=== PATIENT | male | born 1945 | race Caucasian/White ===

== ENCOUNTER → 2020-07-30 16:35 | Outpatient (CLI) | payer MEDICARE, SELFPAY ==
--- NOTE | ~2020-07-30 | MR_ITS ---
EXAMINATION: MR foot RT wo con DATE: 07/30/2020 17:47 INDICATION: Right foot injury and pain. TECHNIQUE: Magnetic resonance imaging (MRI) of the right foot was performed without intravenous contr ast. Sequences included sagittal T1-weighted FSE and STIR FSE, long-axis PD-weighted FS FSE and PD-we ighted FSE, and short-axis PD-weighted FS FSE and T1-weighted FSE. COMPARISON: None FINDINGS: Imaging is centered on the forefoot. The hindfoot and the majority of the midfoot are not i ncluded. There is an avulsion fracture of medial base of second metatarsal at the attachment of the L isfranc ligament. The distal fracture fragment demonstrates 2 mm lateral displacement. There is mild lateral subluxation of third metatarsal. There is a nondisplaced fracture of lateral distal aspect of medial cuneiform with low signal fracture line and bone marrow edema. There is polyarticular osteoar thritis of the Lisfranc joint, severe at second tarsometatarsal joint and mild at first tarsometatars al joint. There is mild osteoarthritis of first metatarsophalangeal joint. There is edema in the head s of the third-fifth metatarsals without fracture line. There is severe fatty atrophy of the musculat ure. There is increased PD-weighted signal intensity of the musculature, consistent with subacute on chronic degeneration. Advanced edema is noted. IMPRESSION: 1. Avulsion fracture of medial base of second metatarsal with Lisfranc joint subluxation. Note that t he lateral aspect of the Lisfranc joint was not included in the scan. 2. Nondisplaced fracture of distal aspect of medial cuneiform. 3. Bone marrow edema in the heads of the third-fifth metatarsals without visible fracture line, likel y stress reaction. 4. Polyarticular osteoarthritis. Reviewed, dictated and finalized at location A. [employer] IMPRESSION: 1. Avulsion fracture of medial base of second metatarsal with Lisfranc joint ferreira bluxation. Note that the lateral aspect of the Lisfranc joint was not included in the scan. 2. Nondisplaced fracture of distal aspect of medial cuneiform. 3. Bone marrow edema in the heads of the third-fifth metatarsals without visibl e fracture line, likely stress reaction. 4. Polyarticular osteoarthritis.
== END ==
PROVIDERS: Visit Provider Podiatrist Foot & Ankle Surgery
DX: S92.324A Nondisplaced fracture of second metatarsal bone, right foot, initial encounter for closed fracture (principal); X58.XXXA Exposure to other specified factors, initial encounter; M19.071 Primary osteoarthritis, right ankle and foot
CPT/HCPCS: 73718

== ENCOUNTER 2020-11-11 14:09 | Outpatient (CLI) | payer MEDICARE, SELFPAY ==
--- NOTE | ~2020-11-11 | XR_ITS ---
EXAMINATION: XR chest 2V 11/11/2020 14:28 INDICATION: Melanoma PROCEDURE: 2 view chest COMPARISON: No prior studies for comparison. FINDINGS: The lungs are clear. The cardiomediastinal silhouette is within normal limits. There are no pleural effusions. There is no pneumothorax suspected. IMPRESSION: 1: NO ACUTE CARDIOPULMONARY DISEASE. Reviewed, dictated and finalized at location B.
== END 2020-11-11 14:10 | disposition home or self-care (01) ==
LOC: ANHIMG 14:13
PROVIDERS: PCP Physician Assistant; Visit Provider Surgery
DX: C43.59 Malignant melanoma of other part of trunk (principal)
CPT/HCPCS: 71046

== ENCOUNTER 2021-05-23 01:13 | Day surgery (SDC) | payer MEDICARE, SELFPAY ==
[2021-05-20 12:39] VITALS: BMI 46.3
--- NOTE | 2021-05-23 08:30 | ECG_ITS ---
Measurements Intervals [place] Rate: 97 P: OK: 0 QRS: -49 QRSD: 104 T: 54 QT: 382 QTc: 486 Interpretive Statements ATRIAL FIBRILLATION LEFT ANTERIOR FASCICULAR BLOCK BORDERLINE ST-T WAVE ABNORMALITY- INF/HIGH LAT LEADS ABNORMAL ECG Electronically Signed On 05-23-2021 14:29:41 CDT by Russell Mcclain D.O.
--- NOTE | 2021-05-23 08:35 | SUR.PREOP ---
ARRIVES VIA WC TO [facility] FOR SCHEDULED KARLY/CV W/ DR. ELENA. A&OX4. DENIES CP, BUT REPORTS ARREAGA. ORIENTED TO ROOM, PLAN OF CARE, ORDERS, PROCEDURE. QUESTIONS ANSWERED. VOICED UNDERSTANDING OF ALL. PRE EKG COMPLETED; SHOWS AFIB. IV STARTED, LABS SENT, VS OBTAINED, SKIN PREPPED. WILL CONTINUE TO MONITOR.
[2021-05-23 09:00] VITALS: BP 147/102; PULSE 94; RESP 18; TEMP 36; O2SAT 96; BMI 49.4
[2021-05-23 09:09] LABS: Anion Gap 9 mmol/L (8-16); Blood Urea Nitrogen 25 mg/dL (9-20); Calcium 8.9 mg/dL (8.4-10.2); Carbon Dioxide 26 mmol/L (22-30); Chloride 106 mmol/L (98-107); Estimated CRCL calculation 66 ml/min; Estimated Glomerular Filt Rate 50; Glucose 175 mg/dL (65-110); Magnesium 1.6 mg/dL (1.6-2.3); Potassium 4.5 mmol/L (3.4-5.0); Sodium 141 mmol/L (137-145)
[2021-05-23] MEDS: SODIUM CHLORIDE 0.9% IV 500 ML 30 ML IV CONT (09:15)
--- NOTE | 2021-05-23 10:10 | SUR.PREOP ---
DR. ELENA TO BEDSIDE PRE PROCEDURE. NOTIFIED DR. ELENA OF PT'S HX OF GOITER AND ANTONIO ON CPAP. PT'S BMI IS 49.4. KARLY/CV WAS SCHEDULED FOR MODERATE SEDATION TODAY. AFTER DISCUSSION W/ PT., DR. ELENA HAS ELECTED TO CANCEL TODAY'S KARLY/CV W/ MODERATE SEDATION AND RESCHEDULE PROCEDURE W/ ANESTHESIA ASSISSTANCE. PT. IS AGREEABLE. NEW DATE FOR KARLY/CV W/ ANESTHESIA IS TUESDAY, MAY 25, 2021 AT 1130.
--- NOTE | 2021-05-23 11:20 | SUR.PREOP ---
PT. DRESSED AND READY TO GO. IV SITE HAS BEEN DISCONTINUED AT 1050. PT. AWARE OF NEW PROCEDURE DATE AND TIME, ARRIVAL TIME OF 10 AM, NPO AFTER MIDNIGHT NIGHT BEFORE, CONTINUE TAKING ELIQUIS FAITHFULLY, HOLD OTHER MEDS AM OF PROCEDURE. DISCHARGED HOME, OUT VIA WC TO SISTER'S WAITING CAR. VOICES NO C/O. NO PROCEDURE WAS PERFORMED TODAY BEYOND PREP.
== END 2021-05-23 11:20 | disposition home or self-care (01) ==
PROVIDERS: PCP Family Medicine; Visit Provider Internal Medicine Cardiovascular Disease
PROC: (CPT 93312; principal; 2021-05-23 10:00)
PROC: 5A2204Z Restoration of Cardiac Rhythm, Single (ICD-10-PCS; 2021-05-23 10:00)
DX: I48.91 Unspecified atrial fibrillation (principal); G47.33 Obstructive sleep apnea (adult) (pediatric); E04.9 Nontoxic goiter, unspecified; Z53.8 Procedure and treatment not carried out for other reasons
CPT/HCPCS: 36415; 80048; 83735; 99214; G0463; J7030; J7040

== ENCOUNTER 2021-05-25 01:04 | Day surgery (SDC) | payer MEDICARE, SELFPAY ==
--- NOTE | 2021-05-25 10:24 | ECG_ITS ---
Measurements Intervals [place] Rate: 55 P: 2 DE: 166 QRS: -43 QRSD: 113 T: 31 QT: 454 QTc: 436 Interpretive Statements SINUS BRADYCARDIA LEFT AXIS DEVIATION DELAYED PRECORDIAL R/S TRANSITION BORDERLINE T WAVE ABNORMALITY- DIFFUSE LEADS BASELINE ARTIFACT- II, III BORDERLINE ECG Electronically Signed On 05-25-2021 12:25:57 CDT by Russell Mcclain D.O.
--- NOTE | 2021-05-25 10:24 | ECG_ITS ---
Measurements Intervals [place] Rate: 103 P: HI: 0 QRS: -46 QRSD: 103 T: 71 QT: 383 QTc: 504 Interpretive Statements ATRIAL FIBRILLATION WITH RAPID VENTRICULAR RESPONSE LEFT ANTERIOR FASCICULAR BLOCK BORDERLINE ST-T WAVE ABNORMALITY- HIGH LATERAL LEADS ABNORMAL ECG Electronically Signed On 05-25-2021 10:29:48 CDT by Russell Mcclain D.O.
[2021-05-25 10:46] VITALS: BP 135/80; PULSE 95; RESP 17; TEMP 36; O2SAT 94
[2021-05-25 10:51] VITALS: BMI 49.4
--- NOTE | 2021-05-25 11:28 | WPDHPUPDATE1 ---
History and Physical Update Update Date/Time: 05/25/21 11:28 History and Physical has been reviewed, including an updated exam of the patient. There are NO changes in the patient's condition. Risks, benefits, and alternatives have been discussed and questions answered. Patient agrees to proceed with procedure.
--- NOTE | 2021-05-25 11:32 | WPDANESEPPF ---
Anes - Initial Pre Proc Eval Procedure: Operation Date: 05/25/21 12:00 Proposed Procedures p Trans Esophageal Echo - Sarabjit Back MD s Electrical Cardioversion - Sarabjit Back MD Date/Time: 05/25/21 11:32 Surgeon: Sarabjit Back MD Pre Op Diagnosis: A-fib Patient Data Age: 75 Gender: M Height: 1.85 m Weight: 170 kg Last Vital Signs Temp 36.0 C L 05/25/21 10:46 Pulse 95 05/25/21 10:46 Resp 17 05/25/21 10:46 BP 135/80 05/25/21 10:46 Pulse Ox 94 05/25/21 10:46 Allergies Allergy/AdvReac Type Severity Reaction Status Date / Time diclofenac Allergy Unknown Unknown Verified 05/23/21 09:25 naproxen Allergy Unknown Unknown Verified 05/23/21 09:25 Penicillins Allergy Unknown Unknown Verified 05/23/21 09:25 Home Medications Medication Instructions Recorded Confirmed Type amlodipine 10 mg tablet 10 mg PO DAILY 12/19/19 05/23/21 History chlorthalidone 25 mg tablet 25 mg PO DAILY 12/19/19 05/23/21 History finasteride 5 mg tablet 5 mg PO DAILY 12/19/19 05/23/21 History glimepiride 4 mg tablet 4 mg PO DAILY #90 tablet 07/30/20 05/23/21 Rx sitagliptin 100 mg tablet 100 mg PO DAILY #90 tablet 07/30/20 05/23/21 Rx telmisartan 80 mg tablet 80 mg PO DAILY #90 tablet 07/30/20 05/23/21 Rx metformin 500 mg tablet,extended 1,000 mg PO BID #360 tablet 10/19/20 05/23/21 Rx release 24 hr furosemide 20 mg tablet 20 mg PO QAM 11/15/20 05/23/21 History hydralazine 100 mg tablet 100 mg PO TID tablet 11/15/20 05/23/21 History apixaban [Eliquis] 5 mg PO BID 05/20/21 05/23/21 History metoprolol tartrate 150 mg PO BID 05/20/21 05/23/21 History pravastatin 20 mg PO DAILY 05/20/21 05/23/21 History Patient hx anesthesia problems: none Family hx anesthesia problems: none Results Review: All pre-operative results and documents have been reviewed as part of the pre-operative evaluation. [facility] Past Medical History Medical History (Updated 05/25/21 @ 11:33 by Gigi Bazzi MD) Cataracts, bilateral Chronic diastolic CHF (congestive heart failure) Chronic joint pain CKD (chronic kidney disease) stage 3, GFR 30-59 ml/min Coronary artery disease Dyspnea on exertion Localized osteoarthritis of knees, bilateral Morbid obesity Morbid obesity with BMI of 45.0-49.9, adult Multinodular goiter Non-ischemic cardiomyopathy ANTONIO on CPAP Primary hypertension Type 2 diabetes mellitus Type 2 diabetes mellitus with diabetic neuropathy Surgical History Surgical History History of skin surgery (~03/2019) 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ectomy (~02/2019) Hx of cataract extraction (~08/2020) Family History Family History Father Diabetes mellitus Mother Diabetes mellitus Sibling Diabetes mellitus Social History Social History Smoking status: Former smoker Second hand tobacco smoke exposure: No Smoking end date: 08/13/70 Alcohol intake: current Drinks per week: 6 Substance use: never Substance use type: does not use Gender identity (if verbalized by the patient): Male Spiritual care concerns: No Agree to blood products: Yes Anes - Eval Final PreProcedure Day of Procedure 05/25/21 11:32 Patient weight: morbidly obese Heart: regular rate and rhythm Lungs: clear to auscultation and normal air movement Airway: Mallampati scale class II Neurological: alert and oriented Last oral intake: >/= 8 hours ASA classification: IV Emergent: no Anesthetic plan: proceed Anesthesia type and monitoring: general GIVS Results Review: All pre-operative results and documents have been reviewed as part of the pre-operative evaluation. Informed Consent: The patient's anesthetic plan and its attendant risks and benefits were discussed with the patient/family/POA. Questions were solicited and answers provided to the s
[2021-05-25 12:40] VITALS: BP 112/75; PULSE 49; RESP 16; O2SAT 96
[2021-05-25 12:45] VITALS: BP 111/71; PULSE 54; RESP 17; O2SAT 94
[2021-05-25 13:00] VITALS: BP 115/77; PULSE 54; RESP 18; O2SAT 94
--- NOTE | 2021-05-25 13:29 | WPDTECDV ---
KARLY with Cardioversion Date of procedure: 05/25/21 Procedure Type: Transesophageal echocardiogram guided elective electrical cardioversion Diagnosis: Atrial fibrillation Indications: Atrial fibrillation Description of Procedure: Brief history present illness: Patient is a pleasant 75-year-old male with past medical history significant for remote nonischemic cardiomyopathy, nonobstructive CAD, chronic diastolic heart failure, morbid obesity, hypertension, hypogonadism, obstructive sleep apnea on CPAP, diabetes mellitus who was seen in the office for worsening fatigue and shortness of breath found to be in new atrial fibrillation for which he was started on systemic anticoagulation on 04/26/2021 referred for transesophageal echocardiogram-guided elective electrical cardioversion in attempt to restore sinus rhythm. Procedure in detail: After verbal and written informed consent was obtained the patient risks, benefits, and alternatives explained in detail the patient agreed to proceed with the plan of care as outlined above. Patient was evaluated at bedside in the gastroenterology procedure room. On examination, neck was obese/thick, supple with normal range of motion, no restrictions to opening of the oral cavity, jaw angle and posterior hypopharynx was clear. Lungs were clear to auscultation. Patient was placed in appropriate 30 to 45 degree angle in a supine, slight left lateral decubitus position. Patient was monitored throughout the study with telemetry, oxygen saturation, end-tidal CO2 monitoring, blood pressure, heart rate, and respirations. Anterior and posterior defibrillator pads placed in the appropriate positions. The posterior hypopharynx was then locally anesthetized using Hurricaine spray. Through the oral bite block, the transesophageal echocardiogram probe was advanced into the posterior hypopharynx and into the esophagus easily and without complication. Multiple, multiplanar echocardiographic images were obtained in multiple standard re-projections. Pulsed wave, continuous-wave, and color-flow Doppler were utilized in conjunction with this study. At the conclusion of the study, the transesophageal echocardiogram probe was removed easily and without complication. Patient tolerated the procedure well without difficulty. Patient was in atrial fibrillation throughout the study. Sedation: Moderate Sedation/Anesthesia administration: Patient denied previous intolerance or complications with anesthesia/sedation. Please see Anesthesiology documentation for sedation details and protocols in association with this procedure. Pato noted above, after adequate local anesthesia of the posterior hypopharynx was achieved, a total of mg intravenous Versed and a total of mcg intravenous Fentanyl in multiple divided doses was utilized for moderate sedation. There were no other issues or complications and patient tolerated the procedure well and sedation protocol well and I was present for the entirety. Findings: FINDINGS: LEFT VENTRICLE: Normal size. Mild LV systolic function with visually estimated ejection fraction of 50% moderate concentric left ventricular hypertrophy. No clear regional wall motion abnormalities identified. RIGHT VENTRICLE: Size and systolic function within normal limits. LEFT ATRIUM: Moderate enlargement RIGHT ATRIUM: Moderate enlargement INTERATRIAL SEPTUM: Interatrial septum is anatomically normal without evidence of shunt with color-flow Doppler nor with injection of agitated saline. MITRAL VALVE: Mitral valve is anatomically normal with preserved leaflet excursion without prolapse but with at least moderate regurgitation with several regurgitant jets identified. AORTIC VALVE: The aortic valve was an anatomically normal 3 leaflet structure with normal leaflet excursion, mild sclerosis, and no regurgitation identified. TRICUSPID VALVE: The tricuspid valve is anatomically normal with normal leaflet excursion
== END 2021-05-25 14:08 | disposition home or self-care (01) ==
PROVIDERS: PCP Family Medicine; Visit Provider Internal Medicine Cardiovascular Disease
PROC: (CPT 93312; principal; 2021-05-25 12:00)
PROC: 5A2204Z Restoration of Cardiac Rhythm, Single (ICD-10-PCS; 2021-05-25 12:00)
DX: I48.91 Unspecified atrial fibrillation (principal); I34.0 Nonrheumatic mitral (valve) insufficiency; I13.0 Hypertensive heart and chronic kidney disease with heart failure and stage 1 through stage 4 chronic kidney disease, or unspecified chronic kidney disease; N18.30 Chronic kidney disease, stage 3 unspecified; E11.22 Type 2 diabetes mellitus with diabetic chronic kidney disease; E11.42 Type 2 diabetes mellitus with diabetic polyneuropathy; I50.32 Chronic diastolic (congestive) heart failure; I25.10 Atherosclerotic heart disease of native coronary artery without angina pectoris; I42.8 Other cardiomyopathies; G47.33 Obstructive sleep apnea (adult) (pediatric); E04.2 Nontoxic multinodular goiter; H26.9 Unspecified cataract; Z79.84 Long term (current) use of oral hypoglycemic drugs; Z79.01 Long term (current) use of anticoagulants; Z87.891 Personal history of nicotine dependence; E66.01 Morbid (severe) obesity due to excess calories; Z68.42 Body mass index [BMI] 45.0-49.9, adult
CPT/HCPCS: 92960; 93312; 93320; 93325; J2704

== ENCOUNTER 2022-12-03 07:59 | Outpatient (CLI) | payer MEDICARE, SELFPAY ==
--- NOTE | 2022-12-15 17:28 | WPDSLEEPSTUD ---
Sleep Study Date of Study: 12/03/22 Ordering Provider: Jose Whipple MD Interpreting Physician: Jessica Valenzuela MD Sleep Study Type: CPAP Titration Height: 1.85 m Weight: 162.84 kg Body Mass Index: 47.3 Neck Circumference (inches): 21 Zalma: 5 Reason for Sleep Study diastolic congestive heart failure, known obstructive sleep apnea; concern for central sleep apneas with his progressive congestive heart failure * 09/20/2004- split night sleep study; AHI 41.7 with desaturation to 62% and optimum pressure 15 cm ; BMI was 39 Sleep History Jewel White is a 77-year-old man with a history of sleep apnea treated with CPAP. he had a split night study in 2004 with an optimal pressure of 15 cm. Since then he has developed congestive heart failure. There was a concern for central apneas. He generally sleeps on his back all night at home using a large Mirage Quattro mask with 15 cm water pressure. He started at 10 cm on this study as he is using 15 cm at home. He rarely awakens from sleep feeling short of breath. He rarely awakens at night with heartburn, belching or coughing. He always snores loudly enough that others complain about it. He occasionally has difficulty sleeping with a cold. He rarely wakes up gasping for breath at night. He rarely has breathing problems at night Reported to him by others. Does not sweat excessively at night or notice his heart pounding or beating irregularly at night. He rarely falls asleep during the day, rarely falls asleep involuntarily, never falls asleep while driving. He does not have loss of muscle tone with strong emotion. He does not have daytime difficulties due to excessive sleepiness. He does not feel paralyzed on waking or falling asleep. He does not have vivid dreamlike scenes on waking or falling asleep. Does not feel afraid to go to sleep. He occasionally has nightmares. Occasionally remembers his dreams. He occasionally has racing thoughts. He occasionally feels sad, depressed or anxious. He occasionally has muscular tension. He occasionally notices parts of his body jerking. He does not kick at night. He frequently has crawling and aching feelings in his legs. Occasionally has leg pain at night. He does not have morning jaw pain. He occasionally grinds his teeth during sleep. He frequently is bothered by pain during the day. He occasionally is awakened by pain at night. He occasionally wakes up feeling stiff in the morning with sore achy muscles and pain in the neck and spine. Has fatigue and sexual problems. Normal bedtime is between 11:00 p.m. and 12 midnight, taking 15-20 minutes to fall a bed typically waking once at night for 5 minutes. After going to the bathroom he is able to return to sleep easily. He wakes the morning between 7 and 8:00 a.m.. His schedule is the same on weekends. He estimates getting 8 hours of sleep at night. He does not take naps in the afternoon or evening. A short nap lasting 10 or 15 minutes may be refreshing. He feels better in the evening compared to other times of day. Habits: Quit tobacco years ago. Caffeine 3 servings a day. Alcohol 2 servings a day. No recreational substances. [facility] Past Medical History Medical History Atrial fibrillation Cataracts, bilateral Chronic diastolic CHF (congestive heart failure) Chronic joint pain CKD (chronic kidney disease) stage 3, GFR 30-59 ml/min Coronary artery disease Dyspnea on exertion Localized osteoarthritis of knees, bilateral Morbid obesity Morbid obesity with BMI of 45.0-49.9, adult Multinodular goiter Non-ischemic cardiomyopathy ANTONIO on CPAP Primary hypertension Type 2 diabetes mellitus Type 2 diabetes mellitus with diabetic neuropathy Surgical History Surgical History History of skin surgery (~03/2019) 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
[2022-12-28 18:02] VITALS: BMI 47.3
--- NOTE | 2023-03-16 09:42 | SLEEP ---
NEW CALLS [id number]
== END 2022-12-04 07:14 | disposition home or self-care (01) ==
LOC: ANHCSM 08:01
PROVIDERS: PCP Family Medicine; Visit Provider Internal Medicine Pulmonary Disease
DX: G47.33 Obstructive sleep apnea (adult) (pediatric) (principal); Z99.89 Dependence on other enabling machines and devices
CPT/HCPCS: 95811

== ENCOUNTER 2022-12-05 10:45 | Outpatient (CLI) | payer MEDICARE, SELFPAY ==
--- NOTE | ~2022-12-05 | CT_ITS ---
EXAMINATION: CTA chest PE protocol DATE: 12/05/2022 11:19 INDICATION: Dyspnea on exertion TECHNIQUE: Computed tomography (CT) pulmonary angiogram of the chest was performed with 100 mL Omnipa que-350 intravenous contrast. Additional 3D reconstructions utilizing coronal maximum intensity proje ction (MIP) were performed. Automated exposure control and iterative reconstruction technique were em ployed. The dose-length product was 1027.50 mGy-cm. COMPARISON: None FINDINGS: Good contrast opacification of the pulmonary arteries. There is mild streak artifact from dense contr ast in the superior vena cava and right atrium. Mild to moderate scattered respiratory motion artifac t most prominent at the posterior sulci of the bilateral lower lobes where it decreases sensitivity i n some of the subsegmental pulmonary arteries. No definitive pulmonary embolism. Elevation of the rig ht hemidiaphragm. Mild scattered mosaic attenuation with scattered subsegmental regions of more lucen t air trapping likely related to small airway disease. A few scattered small calcified pulmonary nodu les along with calcified right hilar and mediastinal lymph nodes in the right lung consistent with ol d granulomatous disease. No pneumonia, pulmonary edema or pleural effusion. Cardiomegaly. No pericard ial effusion. Thoracic aorta is normal in caliber. Mild likely reactive mediastinal lymphadenopathy w ith largest right paratracheal lymph node measuring 1.4 cm in maximal short axis diameter. Multinodul ar goiter with enlarged heterogeneous right thyroid lobe with scattered coarse calcification is. Stat us post left thyroidectomy with several surgical clips at the empty left thyroid fossa. A few scatter ed small splenic calcifications and single tiny hepatic calcific location consistent with old granulo matous disease. Visualized upper abdomen is otherwise unremarkable. Moderate thoracic spondylosis. IMPRESSION: 1. No pulmonary embolism or other acute cardiopulmonary disease. 2. Elevation the right hemidiaphragm. 3. Cardiomegaly. 4. Residual right-sided goiter post left thyroidectomy. Reviewed, dictated and finalized at location A.
== END 2022-12-05 10:46 | disposition home or self-care (01) ==
PROVIDERS: PCP Family Medicine; Visit Provider Internal Medicine Pulmonary Disease
DX: I27.20 Pulmonary hypertension, unspecified (principal); I51.7 Cardiomegaly; E04.9 Nontoxic goiter, unspecified; E89.0 Postprocedural hypothyroidism
CPT/HCPCS: 71275; Q9967

== ENCOUNTER 2022-12-11 13:28 | Outpatient (CLI) | payer MEDICARE, SELFPAY ==
[2022-12-11 14:10] VITALS: PULSE 63; O2SAT 90
[2022-12-11 14:11] LABS: Creatine Kinase 52 U/L (55-170)
[2022-12-11 14:12] VITALS: PULSE 60; O2SAT 92
--- NOTE | 2022-12-11 14:33 | HOMEO2EVAL ---
Evaluation was performed at [facility] Home Oxygen Evaluation RC: Home Oxygen (O2) Evaluation Start: 12/11/22 14:31 Freq: Status: Active Protocol: RPE Activity Type Activity Date Activity User E-sign Co-sign Detail Recorded Client Recorded Date Recorded By Document 12/11/22 14:10 KRM [id number] 12/11/22 14:33 KRM Document 12/11/22 14:12 KRM [id number] 12/11/22 14:33 KRM 12/11/22 12/11/22 14:10 14:12 Home O2 Evaluation [Oxygen] -Test Phase Resting Exercise -Oxygen Delivery Room Air Room Air [Pulse Oximetry] -Pulse Oximetry (90-100 %) 90 92 [Pulse Rate] -Pulse Rate (60-100 beats/min) 63 60 [Evaluation] -Activity Tolerance Fair [Exercise] -Ambulation Distance (feet) 100 -Ambulation Distance (meters) 30.47 [Charges] -Treatment Charges O2 Evaluation - Inpatient
[2022-12-11 15:22] LABS: Rheumatoid Factor 54.3 IU/ML (<12)
--- NOTE | 2022-12-11 15:46 | WPDPFTINT ---
PFT Procedure Performed PFT Procedure Performed Spirometry with Pre/Post Bronchodilator Plethysmography (Lung Vol) Diffusing Cap (DLCO) Flow Vol Loop PFT Interpretation This is a pulmonary function test with pre and post-bronchodilator spirometry, plethysmography and diffusing capacity. The test was performed and results interpreted in accordance with the 2019 and 2005 ATS/ERS Task Force guidelines respectively using the Global Lung Function Initiative-2012 reference equations. Patient demonstrated good effort and cooperation. Reproducibility criteria were met. The quality of the pre bronchodilator spirometry maneuver was Grade B and post bronchodilator spirometry maneuver was Grade A. Findings: Spirometry: The contour the inspiratory and expiratory flow tracing are normal. The pre bronchodilator FVC is 3.04 L, 68% predicted. The pre bronchodilator FEV1 is 2.25 L, 68% predicted. The pre bronchodilator FEV1: FVC ratio 74%. The post bronchodilator FVC is 2.88 L, representing a 5% decrease. The post bronchodilator FEV1 is 2.17 L, representing a 4% decrease. The post bronchodilator FEV1: FVC ratio 75%. Plethysmography: The total lung capacity is 5.52 L, 72% predicted. The functional residual capacity is 3.32 L, 80% predicted. The residual volume is 2.48 L, 91% predicted. Diffusing capacity: The diffusing capacity unadjusted for hemoglobin and carboxyhemoglobin is 21.3, 82% predicted. The diffusing capacity adjusted for alveolar volume is 4.76, 133% predicted. In comparison to previous pulmonary function testing on 10/01/2014 in which only pre bronchodilator spirometry was performed the pre bronchodilator FVC has decreased from 3.69 L to 3.04 L. The pre bronchodilator FEV1 is decreased from 2.89 L to 2.25 L. The total lung capacity has decreased from 7.64 L to 5.52 L. The functional residual capacity has decreased from 4.38 L to 3.32 L. The residual volume has decreased from 3.29 L to 2.48 L. The diffusing capacity unadjusted for hemoglobin and carboxyhemoglobin is unchanged from 24.3 to 21.3. The diffusing capacity adjusted for alveolar volume is unchanged from 4.16 to 4.76 Impression: There is a moderate restrictive ventilatory abnormality. The spirometry is normal without evidence of an obstructive abnormality. There is no significant improvement after inhaling a single dose of albuterol. The diffusing capacity is normal. In comparison to previous pulmonary function testing on 10/01/2014 there has been a greater than anticipated time dependent decrease in the FVC, FEV1, total lung capacity, functional residual capacity and residual volume with no change in the diffusing capacity. Clinical correlation is recommended.
[2022-12-14 09:39] LABS: ANA Cascade Screen Positive (Negative)
[2022-12-14 12:32] LABS: Chromatin (Nucleosomal) Ab <1.0; RNP Antibody 1.7; Sm Antibody <1.0; Sm/RNP Antibody <1.0
[2022-12-14 21:00] LABS: Anti Cyclic Citrullinated Pept <16 Units (<20)
[2022-12-14 22:32] LABS: ANCA Screen Negative (Negative)
[2022-12-15 04:32] LABS: Aldolase 9.8 U/L (<=8.1)
== END 2022-12-11 13:29 | disposition home or self-care (01) ==
PROVIDERS: PCP Family Medicine; Visit Provider Internal Medicine Pulmonary Disease
DX: I27.20 Pulmonary hypertension, unspecified (principal); R06.00 Dyspnea, unspecified; J84.9 Interstitial pulmonary disease, unspecified; J98.4 Other disorders of lung; R94.2 Abnormal results of pulmonary function studies
CPT/HCPCS: 36415; 82085; 82550; 86036; 86038; 86200; 86331; 86430; 86606; 86609; 94060; 94618; 94726; 94729

== ENCOUNTER 2023-01-17 12:33 | Outpatient (CLI) | payer MEDICARE, SELFPAY ==
[2023-01-17 13:13] LABS: Alveolar/Arterial O2 Gradient 30.7 mmHg; Base Excess ABG -1.4 mEq/l (+/-2.0); Carboxyhemoglobin 0.8 % THb (0-2.0); Fractional Inspired Oxygen 21 %; HCO3 ABG 22.8 mEq/l (22.0-26.0); Methemoglobin ABG 0.4 %THb (0-1.5); Oxygen Content ABG 19.1 %vol (16.0-22.0); Oxygen Saturation ABG 95.2 % (95.0-100.0); Oxyhemoglobin 92.5 % THb (90.0-100.0); PCO2 ABG 36.9 mmHg (35.0-45.0); PO2 ABG 74.8 mmHg (80.0-100.0); PO2 FiO2 Ratio Arterial Blood 3.56 %; Reduced Hemoglobin 6.3 %THb (0-5.0); Total Hemoglobin 14.7 g/dL (12.0-18.0); pH ABG 7.408 (7.350-7.450)
[2023-01-17 13:16] LABS: Device ROOM AIR; Modified Allen's Test Pass; Site Drawn RIGHT RADIAL
== END 2023-01-17 12:34 | disposition home or self-care (01) ==
PROVIDERS: PCP Family Medicine; Visit Provider Internal Medicine Pulmonary Disease
DX: G47.33 Obstructive sleep apnea (adult) (pediatric) (principal); G47.31 Primary central sleep apnea
CPT/HCPCS: 36600; 82375; 82805; 83050

== ENCOUNTER 2023-03-01 08:25 | Outpatient (CLI) | payer MEDICARE, SELFPAY ==
--- NOTE | 2023-03-21 20:41 | WPDSLEEPSTUD ---
Sleep Study Date of Study: 03/01/23 Ordering Provider: Jose Whipple MD Interpreting Physician: Jessica Valenzuela MD Sleep Study Type: BiPAP Titration Height: 1.85 m Weight: 158.757 kg Body Mass Index: 46.1 Neck Circumference (inches): 21 [place]: 5 Reason for Sleep Study diastolic congestive heart failure, known obstructive sleep apnea;? concern for central sleep apneas with his progressive congestive heart failure * 09/20/2004- split night sleep study;? AHI 41.7 with desaturation to 62% and optimum pressure 15 cm; BMI was 39. BMI is now 46. On his prior settings 15 cm, he is 100% compliant, the AHI is 9.6 with a low leak, and the central AHI is 3.4. Sleep History Jewel White is a 77-year-old man with a history of sleep apnea treated with CPAP 15 cm. ? He had a split night study in 2004 with an optimal pressure of 15 cm.? Since then he has developed congestive heart failure.? There was a concern for central apneas.? He generally sleeps on his back all night at home using a large Mirage Quattro mask with 15 cm water pressure.? He started at 10 cm on this study as he is? using 15 cm at home. He rarely awakens from sleep feeling short of breath.? He rarely awakens at night with heartburn, belching or coughing.? He always snores loudly enough that others complain about it.? ? He occasionally has difficulty sleeping with a cold.? He rarely wakes up gasping for breath at night.? He rarely has breathing problems at night ? Reported to him by others.? Does not sweat excessively at night or notice his heart pounding or beating irregularly at night.? He rarely falls asleep during the day, rarely falls asleep involuntarily, never falls asleep while driving.? He does not have loss of muscle tone with strong emotion. ? He does not have daytime difficulties due to excessive sleepiness.? He does not feel paralyzed on waking or falling asleep.? He does not have vivid dreamlike scenes on waking or falling asleep.? Does not feel afraid to go to sleep.? He occasionally has nightmares.? Occasionally remembers his dreams.? He occasionally has racing thoughts.? He occasionally feels sad, depressed or anxious.? He occasionally has muscular tension.? He occasionally notices parts of his body jerking.? He does not kick at night.? He?frequently has crawling and aching feelings in his legs.? Occasionally has leg pain at night.? He does not have morning jaw pain. ? He occasionally grinds his teeth during sleep.? He frequently is bothered by pain during the day.? He occasionally is awakened by pain at night.? He occasionally wakes up feeling stiff in the morning with sore achy muscles and pain in the neck and spine.? Has fatigue and sexual problems. Normal bedtime is between 11:00 p.m. and 12 midnight, taking 15-20 minutes to fall a bed typically waking once at night for 5 minutes.? After going to the bathroom he is able to return to sleep easily.? He wakes the morning between 7 and 8:00 a.m..? His schedule is the same on weekends.? He estimates getting 8 hours of sleep at night.? ? He does not take naps in the afternoon or evening.? A short nap lasting 10 or 15 minutes may be refreshing.? He feels better in the evening compared to other times of day. Habits: ? Quit tobacco years ago.? Caffeine 3 servings a day.? Alcohol 2 servings a day.? No recreational substances. [facility] Past Medical History Medical History Atrial fibrillation Cataracts, bilateral Chronic diastolic CHF (congestive heart failure) Chronic joint pain CKD (chronic kidney disease) stage 3, GFR 30-59 ml/min Coronary artery disease Dyspnea on exertion Localized osteoarthritis of knees, bilateral Morbid obesity Morbid obesity with BMI of 45.0-49.9, adult Multinodular goiter Non-ischemic cardiomyopathy ANTONIO on CPAP Primary hypertension Type 2 diabetes mellitus Type 2 diabetes mellitus with diabetic neuropathy Surgical History Surgical History (Re
[2023-03-21 20:58] VITALS: BMI 46.1
== END 2023-03-02 07:41 | disposition home or self-care (01) ==
PROVIDERS: PCP Family Medicine; Visit Provider Internal Medicine Pulmonary Disease
DX: G47.33 Obstructive sleep apnea (adult) (pediatric) (principal); G47.31 Primary central sleep apnea; G47.61 Periodic limb movement disorder
CPT/HCPCS: 95811

== ENCOUNTER 2023-06-08 01:27 | Day surgery (SDC) | payer MEDICARE, SELFPAY ==
[2023-06-07 12:08] VITALS: BMI 44.6
[2023-06-08] VITALS (18 sets, daily range): BP systolic 112–144; BP diastolic 59–104; PULSE 46–74; RESP 12–19; TEMP 36.6; O2SAT 90–95; BMI 45.2
[2023-06-08 08:08] LABS: Basophils Percent Auto 0.6 % (0.2-1.2); Eosinophils Absolute Auto 0.1 K/mm3 (0-0.3); Eosinophils Percent Auto 1.8 % (0-4.4); Hematocrit 47.7 % (42.0-52.0); Hemoglobin 14.9 g/dL (14.0-18.0); Immature Granulocyte Absolute 0.03 K/mm3 (0.00-0.031); Immature Granulocyte Percent A 0.4 % (0-0.5); Lymphocytes Absolute Auto 0.66 K/mm3 (0.9-3.2); Lymphocytes Percent Auto 9.6 % (18.3-44.2); Mean Corpuscular HGB Conc 31.2 g/dl (32-36); Mean Corpuscular Hemoglobin 31.6 pg (26-34); Mean Corpuscular Volume 101.1 fl (80-100); Mean Platelet Volume 10.3 fl (7.4-10.4); Monocytes Absolute Auto 0.7 K/mm3 (0.1-0.6); Monocytes Percent Auto 10.2 % (2.6-8.5); Neutrophils Absolute Auto 5.3 K/mm3 (1.3-6.7); Neutrophils Percent Auto 77.4 % (45.5-73.1); Platelet Count Result 167 k/mm3 (150-375); Red Blood Count 4.72 M/mm3 (4.6-6.20); Red Cell Distribution Width 15.3 % (11.5-14.5); White Blood Count 6.9 K/mm3 (4.5-10.0)
[2023-06-08 08:15] LABS: Anion Gap 13 mmol/L (8-16); Blood Urea Nitrogen 24 mg/dL (9-20); Calcium 9.2 mg/dL (8.4-10.2); Carbon Dioxide 20 mmol/L (22-30); Chloride 108 mmol/L (98-107); Estimated CRCL calculation 55 ml/min; Estimated Glomerular Filt Rate 42; Glucose 125 mg/dL (65-110); Potassium 5.1 mmol/L (3.4-5.0); Sodium 141 mmol/L (137-145)
[2023-06-08 08:17] LABS: Prothrombin Time 13.7 Seconds (11.1-14.7)
--- NOTE | 2023-06-08 09:06 | WPDMODSED ---
Moderate Sedation Note-Pt Data Patient Data Diagnosis: Left ventricular systolic dysfunction pulmonary hypertension Present Complaint: no complaints this morning Procedure to be performed/Plan: right and left heart catheterization Allergies Allergy/AdvReac Type Severity Reaction Status Date / Time diclofenac Allergy Unknown Unknown Verified 06/08/23 07:52 Penicillins Allergy Unknown Unknown Verified 06/08/23 07:52 Home Medications Medication Instructions Recorded Confirmed Type amlodipine 10 mg tablet 10 mg PO DAILY 12/19/19 06/07/23 History finasteride 5 mg tablet 5 mg PO DAILY 12/19/19 06/07/23 History hydralazine 100 mg tablet 100 mg PO TID 11/15/20 06/07/23 History apixaban 5 mg tablet (Eliquis) 5 mg PO BID 05/20/21 06/07/23 History metoprolol succinate 100 mg 100 mg PO BID 12/19/21 06/07/23 History tablet,extended release 24 hr sodium bicarbonate 650 mg tablet 650 mg PO TID 12/19/21 06/07/23 History glimepiride 4 mg tablet 4 mg PO DAILY #90 tabs 07/23/22 06/07/23 Rx sitagliptin phosphate 100 mg 100 mg PO DAILY #90 tabs 07/23/22 06/07/23 Rx tablet (Januvia) telmisartan 80 mg tablet 80 mg PO DAILY #90 tabs 07/23/22 06/07/23 Rx metformin 500 mg tablet,extended 1,000 mg PO BID #360 tabs 11/03/22 06/07/23 Rx release 24 hr furosemide 40 mg tablet 40 mg PO DAILY 11/28/22 06/07/23 History chlorthalidone 25 mg tablet 25 mg PO DAILY 01/18/23 06/07/23 History empagliflozin 10 mg tablet 10 mg PO DAILY 01/18/23 06/07/23 History (Jardiance) gabapentin 300 mg capsule 300 mg PO QHS #90 caps 01/26/23 06/07/23 Rx pravastatin 20 mg tablet 20 mg PO DAILY #90 tabs 04/22/23 06/07/23 Rx Current Medications: Active Medications Sodium Chloride (Normal Saline Iv) 500 mls @ 100 mls/hr IV CONT .Q5H CHANDAN Sedation/Anesthesia: No previous sedation/anesthesia problems (including family history). REPLACED BY [facility] Past Medical History Medical History Atrial fibrillation Cataracts, bilateral Chronic diastolic CHF (congestive heart failure) Chronic joint pain CKD (chronic kidney disease) stage 3, GFR 30-59 ml/min Coronary artery disease Dyspnea on exertion Localized osteoarthritis of knees, bilateral Morbid obesity Morbid obesity with BMI of 45.0-49.9, adult Multinodular goiter Non-ischemic cardiomyopathy ANTONIO on CPAP Primary hypertension Type 2 diabetes mellitus Type 2 diabetes mellitus with diabetic neuropathy Surgical History Surgical History History of skin surgery (~03/2019) 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ectomy (~02/2019) Hx of cataract extraction (~08/2020) S/P ablation of atrial fibrillation Family History Family History Father Diabetes mellitus Mother Diabetes mellitus Sibling Diabetes mellitus Social History Social History Social History: former smoker Smoking packs per day: 1 Smoking cigarettes per day: 20.0 Years smoked: 10 Smoking pack-years: 10.00 Smoking status: Former smoker Tobacco type: cigarettes Second hand tobacco smoke exposure: No Smoking end date: 08/13/70 Alcohol intake: current Drinks per week: 12 Substance use: never Substance use type: does not use Lack of Transportation: No Lack of Food: Never True Current Housing: I Have Housing Concerned About Future Housing: No Difficulty Paying Gas/Electric Bills: No Difficulty Paying for Meds: No Currently Unemployed: No Education: High School Diploma/GED Difficulty w/ Childcare or Family Care: No Living arrangements: alone Occupation/Education: retired Gender identity (if verbalized by the patient): Male Spiritual care concerns: No Agree to blood products: Yes Mod Sed Physical Exam Physical Exam Pre Procedural Exam: Normal: Airway, Karina
--- NOTE | 2023-06-08 09:44 | P.PCNCC_ITS ---
Cardiac Cath Procedure Note Date of procedure:: 06/08/23 Performing physician:: Jose Zelaya MD Indication:: left ventricular systolic dysfunction pulmonary hypertension Brief clinical history:: this is a 77-year-old man who was felt previously to have mild coronary artery disease who presents for catheterization because of declining LV systolic dysfunction echocardiography as well as echocardiographic evidence of pulmonary hypertension. Procedure Procedure performed:: Right heart catheterization left heart catheterization Sedation/Medication given:: fentanyl 25 mg Versed 2 mg case start time 9:14 a.m. case end time 9:40 a.m. sedation provided by Kathrine Chadwick RN, trained observer Access site:: right femoral artery right femoral vein Estimated blood loss:: 25 cc Procedure note:: patient was brought to the cardiac catheterization lab in the postabsorptive state where the right femoral triangle was prepared and draped in the usual fashion. Anesthesia was given with 1% lidocaine infiltrated locally. The femoral artery and vein were punctured using the modified Seldinger technique and a 5 Ghanaian sheath was placed into the artery and a 7 Ghanaian sheath into the vein. Following this I used a balloon tip [place]-Evelin catheter to perform right heart catheterization, measuring right-sided hemodynamics, thermodilution cardiac outputs and Denisa cardiac output. The [place]-Evelin catheter was then removed. The 5 Ghanaian angled pigtail catheter was then advanced into the central aorta. Arterial saturation was sampled. The catheter was used to measure left-sided hemodynamics and to inject LV g in the 30 degree TAFOYA projection. Following this a standard 5 [place]ian FL4 catheter and 5 [place]ian JR4 catheter used to engage and inject the left and right coronary arteries in multiple projections. The case was then terminated. The patient was taken to the holding area for manual sheath removal. Procedure was well tolerated and uncomplicated. 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 Clinical assessment of this is more challenging in the setting of his morbid obesity. Findings:: Hemodynamics: Right atrium 14 mmHg, right ventricle 72 over 16 end- diastolic pressure 26, pulmonary artery 72 over 28, pulmonary wedge pressure 26, central aorta 124 over 64 left ventricle 22 5 end-diastolic 26. thermodilution cardiac output is 5.5 liters/minutes, Denisa cardiac output 5.9 liters/minute. Pulmonary artery saturate 57.7 central aorta 86.2 % left ventricle: The left ventricle is markedly enlarged with severe global systolic dysfunction ejection fraction is visually estimated to be 25% who the left main coronary artery is short to large in caliber and widely patent the left anterior descending is a large caliber artery extending down to the apex. The LAD and its branches are smooth and angiographically free of disease. The circumflex is a codominant artery it is very large in caliber smooth and angiographically free of disease. The right coronary artery is large in caliber, codominant terminating in an RPDA it is smooth and angiographically free of disease. Conclusion:: 1. Codominant coronary artery circulation with no coronary artery disease 2. severe left ventricular systolic dysfunction with low ejection fraction as described above 3. severe pulmonary hypertension appears to be result of left heart failure with low ejection fraction and high LVEDP Jose Zelaya MD FACC
== END 2023-06-08 15:35 | disposition home or self-care (01) ==
PROVIDERS: PCP Family Medicine; Visit Provider Specialist
PROC: 4A023N8 Measurement of Cardiac Sampling and Pressure, Bilateral, Percutaneous Approach (ICD-10-PCS; CPT 93453; principal; 2023-06-08 09:00)
DX: I13.0 Hypertensive heart and chronic kidney disease with heart failure and stage 1 through stage 4 chronic kidney disease, or unspecified chronic kidney disease (principal); I50.20 Unspecified systolic (congestive) heart failure; E11.22 Type 2 diabetes mellitus with diabetic chronic kidney disease; N18.30 Chronic kidney disease, stage 3 unspecified; E11.40 Type 2 diabetes mellitus with diabetic neuropathy, unspecified; I42.8 Other cardiomyopathies; I48.91 Unspecified atrial fibrillation; G47.33 Obstructive sleep apnea (adult) (pediatric); E66.01 Morbid (severe) obesity due to excess calories; Z68.42 Body mass index [BMI] 45.0-49.9, adult; Z87.891 Personal history of nicotine dependence; Z79.01 Long term (current) use of anticoagulants; Z79.84 Long term (current) use of oral hypoglycemic drugs
CPT/HCPCS: 36415; 80048; 85025; 85610; 93460; C1887; C1894; J1644; J2250; J3010; J7040

== ENCOUNTER 2023-10-03 14:42 | Outpatient (CLI) | payer MEDICARE, SELFPAY ==
[2023-10-03 14:58] LABS: Basophils Absolute Auto 0.1 K/mm3 (0.0-0.1); Basophils Percent Auto 0.7 % (0.2-1.2); Eosinophils Absolute Auto 0.1 K/mm3 (0-0.3); Hematocrit 46.7 % (42.0-52.0); Immature Granulocyte Absolute 0.02 K/mm3 (0.00-0.031); Immature Granulocyte Percent A 0.3 % (0-0.5); Lymphocytes Absolute Auto 1.01 K/mm3 (0.9-3.2); Lymphocytes Percent Auto 14.7 % (18.3-44.2); Mean Corpuscular HGB Conc 32.1 g/dl (32-36); Mean Corpuscular Hemoglobin 31.8 pg (26-34); Mean Corpuscular Volume 98.9 fl (80-100); Mean Platelet Volume 9.9 fl (7.4-10.4); Monocytes Absolute Auto 0.9 K/mm3 (0.1-0.6); Monocytes Percent Auto 12.9 % (2.6-8.5); Neutrophils Absolute Auto 4.8 K/mm3 (1.3-6.7); Neutrophils Percent Auto 69.4 % (45.5-73.1); Platelet Count Result 223 k/mm3 (150-375); Red Blood Count 4.72 M/mm3 (4.6-6.20); Red Cell Distribution Width 14.8 % (11.5-14.5); White Blood Count 6.9 K/mm3 (4.5-10.0)
[2023-10-03 16:38] LABS: Immunoglobulin A 137 mg/dL (70-400); Immunoglobulin G 1176 mg/dL (700-1600); Immunoglobulin M 42 mg/dL (40-230)
[2023-10-03 16:40] LABS: Alanine Aminotransferase 17 U/L (6-50); Albumin Level 4.2 g/dL (3.5-5.1); Alkaline Phosphatase 92 U/L (38-126); Anion Gap 12 mmol/L (8-16); Aspartate Amino Transferase 21 U/L (17-59); Bilirubin,Total 0.8 mg/dL (0.2-1.3); Blood Urea Nitrogen 24 mg/dL (9-20); Calcium 9.2 mg/dL (8.4-10.2); Carbon Dioxide 23 mmol/L (22-30); Chloride 104 mmol/L (98-107); Estimated Glomerular Filt Rate 45; Glucose 75 mg/dL (65-110); Sodium 139 mmol/L (137-145)
[2023-10-05 10:58] LABS: Kappa\\Lambda Light Chains 1.08 (0.26-1.65); Lambda Light Chain 40.8 mg/L (5.7-26.3)
[2023-10-06 05:40] LABS: Albumin 3.7 g/dL (3.8-4.8); Alpha 1 Globulin 0.4 g/dL (0.2-0.3); Beta 1 Globulin 0.4 g/dL (0.4-0.6); Protein, Total 6.9 g/dL (6.1-8.1)
== END 2023-10-03 14:43 | disposition home or self-care (01) ==
LOC: ANHLAB 14:44
PROVIDERS: PCP Family Medicine; Visit Provider Internal Medicine Hematology & Oncology
DX: D72.9 Disorder of white blood cells, unspecified (principal)
CPT/HCPCS: 36415; 80053; 82784; 83883; 84155; 84165; 85025

== ENCOUNTER 2023-12-11 13:28 | Outpatient (CLI) | payer MEDICARE, SELFPAY ==
--- NOTE | ~2023-12-11 | CT_ITS ---
EXAMINATION:CT chest high resolution wo mt DATE: 12/11/2023 14:05 INDICATION: Interstitial pulmonary disease. Other specified abnormal immunological findings in serum. TECHNIQUE: Computed tomography (CT) of the chest was performed without intravenous contrast. Automate d exposure control and iterative reconstruction technique were employed. The dose-length product (DLP ) was 949.50 mGy-cm. COMPARISON: Chest CT 12/05/2022 FINDINGS: There is chronic elevation of right hemidiaphragm. Calcified pulmonary nodules and calcifie d hilar and mediastinal lymph nodes are consistent with old granulomatous disease. There is mild kenny pheral septal thickening in the lungs. No bronchiectasis or honeycombing. No pleural effusion. There is a multinodular goiter status post left hemithyroidectomy. Cardiomegaly is noted. There are coronar y artery calcifications. No pericardial effusion. There is a small sliding hiatal hernia. Calcificati ons in the spleen are consistent with old granulomatous disease. There is bilateral gynecomastia. The re is moderate thoracic spondylosis. IMPRESSION: 1. Mild peripheral septal thickening in the lungs, consistent with mild pulmonary edema versus mild c hronic interstitial lung disease. Reviewed, dictated and finalized at location A. IMPRESSION: 1. Mild peripheral septal thickening in the lungs, consistent with mild pulmona ry edema versus mild chronic interstitial lung disease.
--- NOTE | 2023-12-11 16:54 | WPDPFTINT ---
PFT Procedure Performed PFT Procedure Performed Spirometry with Pre/Post Bronchodilator Plethysmography (Lung Vol) Diffusing Cap (DLCO) Flow Vol Loop PFT Interpretation This is a pulmonary function test with pre and post-bronchodilator spirometry, plethysmography and diffusing capacity. The test was performed and results interpreted in accordance with the 2019 and 2005 ATS/ERS Task Force guidelines respectively using the Global Lung Function Initiative-2012 reference equations. Patient demonstrated good effort and cooperation. Reproducibility criteria were met. The quality of the pre bronchodilator spirometry maneuver was Grade A and post bronchodilator spirometry maneuver was Grade A. Findings: Spirometry: The contour the inspiratory and expiratory flow tracing are normal. The pre bronchodilator FVC is 2.94 L, 67% predicted. The pre bronchodilator FEV1 is 2.11 L, 65% predicted. The pre bronchodilator FEV1: FVC ratio is 72%. The post bronchodilator FVC is 3.39 L, representing a 15% increase. The post bronchodilator FEV1 is 2.54 L, representing a 21% increase. The post bronchodilator FEV1: FVC ratio 75%. Plethysmography: The total lung capacity is 5.13 L, 67% predicted. The functional residual capacity is 2.58 L, 62% predicted. The residual volume is 1.99 L, 72% predicted. Diffusing capacity: The diffusing capacity unadjusted for hemoglobin and carboxyhemoglobin is 19.7, 76% predicted. The diffusing capacity adjusted for alveolar volume is 3.88, 109% predicted. In comparison to previous pulmonary function testing on 12/11/2022 the post bronchodilator FVC has increased from 2.88 L to 3.39 L. The post bronchodilator FEV1 has increased from 2.17 L to 2.54 L. The total lung capacity is unchanged from 5.52 L to 5.13 L. The functional residual capacity is decreased from 3.32 L to 2.58 L. The residual volume has decreased from 2.48 L to 1.99 L. The diffusing capacity unadjusted for hemoglobin and carboxyhemoglobin is unchanged from 21.3 to 19.7. The diffusing capacity adjusted for alveolar volume has a decreased from 4.76 to 3.88. Impression: There is a moderate restrictive ventilatory abnormality. The spirometry is normal without evidence of an obstructive abnormality. There is significant improvement after inhaling a single dose of albuterol. The diffusing capacity unadjusted for hemoglobin and carboxyhemoglobin is normal. In comparison to prior pulmonary function testing on 12/11/2022, the patient now demonstrates a significant improvement after inhaling a single dose of albuterol. There was a greater than anticipated time dependent decrease in the functional residual capacity, residual volume and diffusing capacity adjusted for alveolar volume with a greater than anticipated time dependent increase in the post bronchodilator FVC and post bronchodilator FEV1. There has been no significant change in the total lung capacity or diffusing capacity unadjusted for hemoglobin and carboxyhemoglobin. Clinical correlation is recommended.
== END 2023-12-11 13:29 | disposition home or self-care (01) ==
LOC: ANHIMG 13:30
PROVIDERS: PCP Family Medicine; Visit Provider Internal Medicine Pulmonary Disease
DX: R76.8 Other specified abnormal immunological findings in serum (principal); J84.9 Interstitial pulmonary disease, unspecified; R94.2 Abnormal results of pulmonary function studies
CPT/HCPCS: 71250; 94060; 94726; 94729

== ENCOUNTER 2024-11-18 16:16 | Outpatient (CLI) | payer MEDICARE, SELFPAY ==
--- NOTE | ~2024-11-18 | CT_ITS ---
CT Scan of the Chest without Contrast: Clinical Indication: Interstitial lung disease Technique: Contiguous sections were acquired throughout the chest without intravenous contrast. Dose reduction technique was used on this scan by utilizing automated exposure control and iterative recon struction technique. The dose-length product (DLP) was 1092.73 mGy-cm. COMPARISON: 12/11/2023 Findings: Stable enlarged right thyroid lobe with probable nodules. No suspicious mediastinal or axillary lymphadenopathy seen. Calcified and mildly prominent mediastina l lymph nodes are unchanged. The mediastinal soft tissues appear normal. There is no evidence of pleural or pericardial effusion. Probable minimal chronic interstitial changes posteriorly at the lung bases. Several scattered small calcified granulomas are present. Images through the upper abdomen reveal no abnormalities. Impression: Possible minimal chronic interstitial changes at the lung bases. Evidence of prior granulomatous disease. Stable large right thyroid lobe with nodules. Reviewed, dictated and finalized at [facility]. Impression: Possible minimal chronic interstitial changes at the lung bases. Evidence of prior granulomatous disease. Stable large right thyroid lobe with nodules.
--- OUTSIDE RECORDS SUMMARY | 2024-11-18 17:03 | XMS_ITS | Clinical Summary ---
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 Active apixaban (Eliquis) 5 mg tablet Take by mouth 2 times daily. Active chlorthalidone (HYGROTON) 25 mg tablet Take 25 mg by mouth daily. Active empagliflozin (Jardiance) 10 mg tablet Take by mouth daily in the morning. Active finasteride (PROSCAR) 5 mg tablet Take 5 mg by mouth daily. Active furosemide (LASIX) 40 mg tablet Take 40 mg by mouth daily. Active gabapentin (NEURONTIN) 300 mg capsule Take 300 mg by mouth 3 times daily. Active glimepiride (AMARYL) 4 mg tablet Take 4 mg by mouth daily with breakfast. Active hydrALAZINE (APRESOLINE) 100 mg Tablet tablet Take 100 mg by mouth. Active metFORMIN (GLUCOPHAGE) 1,000 mg tablet Take 1,000 mg by mouth 2 times daily with meals. Active metoprolol succinate (TOPROL XL) 100 mg Extended Release 24 hour tablet Take 100 mg by mouth daily. Active pravastatin (PRAVACHOL) 20 mg tablet Take 20 mg by mouth daily with supper. Active sacubitriL-valsar cornejo (Entresto) 24-26 mg Tablet Take by mouth 2 times daily. Active SITagliptin phosphate (JANUVIA) 100 mg Tablet Take 100 mg by mouth daily with breakfast. Active sodium bicarbonate 650 mg tablet Take 650 mg by mouth 4 times daily. Active Active Problems No known active problems Encounters Date Type Department Care Team Description 10/29/2024 External Device Data [facility] Provider, Abstract 10/18/2024 External Device Data [facility] Provider, Abstract 10/17/2024 External Device Data [facility] Provider, Abstract 09/30/2024 External Device Data [facility] Provider, Abstract 09/02/2024 External Device Data [facility] Provider, Abstract from Last 3 Months Family History Medical History Relation Name Comments Diabetes Father Lung Cancer Father Cancer Mother Diabetes Mother Heart Disease Mother Heart Disease Sister 1 Relation Name Status Comments Brother Alive Father Mother Sister 1 Sister 2 Alive Social History Tobacco Use Types Packs/Day Years Used Date Smoking Tobacco: Former Cigarettes Smokeless Tobacco: Never Tobacco Cessation:Counseling Given: Not Answered Alcohol Use Standard Drinks/Week Comments Yes 0 (1 standard drink = 0.6 oz pur e alcohol) Sex and Gender Information Value Date Recorded Sex Assigned at Male 07/18/2024 10:14 PM [employer]BER DEF[employer] ANALYST Legal Sex Male 8:42 AM CYBER DEFENSE [employer] ANALYST Gender Identity Male 07/18/2024 10:14 PM [employer]BER DEF[employer] ANALYST Sexual Orientation Straight 07/18/2024 10 :14 PM CYBER DEF[employer] ANALYST Last Filed Vital Signs Vital Sign Reading Time Taken Comments Blood Pressure 146/84 10/30/2023 2:27 PM CDT Pulse 88 10/30/2023 2:24 PM CDT Temperature 36.4 C (97.5 F) 10/30/2023 2:24 PM CDT Respiratory Rate 18 10/30/2023 2:24 PM CDT Oxygen Saturation 90% 10/30/2023 2:24 PM CDT Inhaled Oxygen Concentration - - Weight 148.8 kg (328 lb) 10/30/2023 2:24 PM CDT Height 185.4 cm (6' 1 ) 10/03/2023 1:43 PM [employer]BER [employer] ANALYST Body Mass Index 43.27 10/03/2023 1:43 PM CYBER DEF[employer] FOR[employer] ANALYST Plan of Treatment Health Maintenance Due Date Last Done Comments DIABETES ANNUAL FOOT EXAM 1964 DIABETES ANNUAL RETINAL EXAM 1964 DIABETES MICROALBUMIN ANNUAL SCREEN 1964 LDL CHOLESTEROL ANNUAL 1964 DTAP/TDAP/TD VACCINES (1 - Tdap) 1965 PNEUMOCOCCAL VACCINE 50+ YEA RS (1 of 2 - PCV) 1965 ZOSTER VACCINE (1 of 2) 1996 RSV VACCINE (60+ or ) (1 - 1-dose 75+ series) 2021 DIABETES HBA1C Q 6 MONTHS 12/15/2021 06/17/2021 INFLUENZA VACCINE (#1) 2024 04/28/2020, 2018 Insurance [employer] OPEN CHOICE PPO Care Teams Land Surveying Party Chief Relationship Specialty Start Date End Date Shagufta Khan MD [address] [place] [phone] PCP - General Family Practice 10/02/23
--- OUTSIDE RECORDS SUMMARY | 2024-11-18 17:03 | XMS_ITS | Encounter Summary ---
Author Organization [facility] Address [address] [facility] [place] [address] Care Team Providers Care Loom Changer Name Role Phone Elizabeth Wei MD Primary Care Provider [phone] Shagufta Khan MD Primary Care Provider [phone] Encounter Details Date Type Department Care Team (Late st Contact Info) Description 08/28/2019 Lab Requisition [facility] [address] [facility], [place] [id number] Arminda Boyd, DO [address] [facility] 3 [place] [address] Social History Tobacco Use Types Packs/Day Years Used Date Smoking Tobacco: Former Cigarettes Q uit: 1976 Smokeless Tobacco: Never Alcohol Use Standard Drinks/Week Comments Yes 12 (1 standard drink = 0.6 oz pu re alcohol) 6 pack week/beer Sex and Gender Information Value Date Recorded Sex Assigned at Male 09/23/2021 1:27 PM MUSIC COORDINATOR Gender Identity Male 06/18/2021 1:43 PM CDT Sexual Orientation Straight 06/18/2021 1: 43 PM CDT documented as of this encounter Functional Status Functional Status Response Date of Assess ment Is person deaf or have serious hearing difficult y? No 02/27/2019 Is person blind or have serious difficulty seein g? No 02/27/2019 Does person have serious dif ficulty walking/climbing stairs? No 02/27/2019 Does person have difficulty dressing/bathing? No 02/27/2019 Does person have difficulty doing errands alone? No 02/27/2019 Cognitive Status Response Date of Assessm ent Does person have difficulty concentrating/remembering/making decisions? No 02/27/2019 documented as of this encounter Plan of Treatment Upcoming Encounters Date Type Department Care Team (Late st Contact Info) Description 12/31/2024 1:30 PM CDT Office Visit [facility] - Nephrology [address] [place] [address], [place] [address] Karthikeyan Elizabeth MD [address] [place] [address] [place] [address] documented as of this encounter Procedures Procedure Name Priority Date/Time Associated Diagnosis Comments DERMATOPATHOLOGY Routine 08/27/2019 12:0 0 AM MUSIC COORDINATOR documented in this encounter Results * DERMATOPATHOLOGY (08/27/2019 12:00 AM MUSIC COORDINATOR) Case Report Dermatopathology Report Case: [id number] Authorizing Provider: Arminda Boyd DO Collected: 08/27/2019 12:00 AM Ordering Location: [facility] Lab Received: 08/28/2019 10:17 AM Pathologist: Caitie Hutchins MD Specimens: A) - Skin, right upper arm B) - Skin, left abdomen 0 1:18 PM MUSIC COORDINATOR DERMATOPATHOLOGY LABORATORY Final Diagnosis Specimen A. SKIN, right upper arm: SOLAR LENTIGO (L81.4) SEBORRHEIC KERATOSIS (L82.1) DERMAL FIBROSIS (L90.5) (see microscopic description) Specimen B. SKIN, left abdomen: LENTIGINOUS MELANOCYTIC NEVUS, COMPOUND TYPE (COMPOUND MELANOCYTIC NEVUS WITH ARCHITECTURAL DISORDER) (D22.5) 0 1:18 PM MUSIC COORDINATOR DERMATOPATHOLOGY LABORATORY Clinical History A: R/O recurrent melanocytic proliferation. Irreg color and border. B: Nevus R/O atypia. 0 1:18 PM [facility] DERMATOPATHOLOGY LABORATORY Gross Description Specimen A: Received is one formalin filled container labeled with the patient's name and designated right upper arm. The specimen consists of a shave measuring [id number]. Jar 0. Specimen B: Received is one formalin filled container labeled with the patient's name and designated left abdomen. The specimen consists of a shave measuring [id number]. Jar 0. 0 1:18 PM [facility] DERMATOPATHOLOGY LABORATORY Microscopic Description Specimen A. SKIN, right upper arm: There is orthokeratosis. There is a slight increase in epidermal thickness with lentiginous buds of hyperpigmented keratinocytes. The number of melanocytes, highlighted by MART-1/Melan-A immunohistochemical staining, is only mildly increased. In the dermis, there is basophilic degeneration of elastic fibers. In the adjacent epidermis there is a proliferation of small keratinocytes. The surface is gently papillated, and there is increased basilar pigmentation. There is focal dermal fibrosis. Specimen B. SKIN, left abdomen: This is a compound nevus. There is architectural disorder characterized by a lentiginous proliferation of melanocytes between irregular nevus nests of cells along the dermal-epidermal junction. There is underlying lamellar fibroplasia of the papillary dermis. The intradermal component is bland in appearance and matures with depth. (Compound Tonny's Nevus or Compound Dysplastic Nevus) 0 1:18 PM [facility] DERMATOPATHOLOGY LABORATORY Disclaimer An external and internal positive and negative controls are appropriate for the histochemical, immunohistochemical and immunofluorescence stain(s) in this case (if any), except where stated explicitly. The performance characteristics of the stain(s) cited in this report were developed and its performance characteristic determined by the Dermatopathology Laboratory at [facility], directed by Dr. John Adams. These tests need not be, and therefore are not, approved by the [place] Food and Drug Administration. The tests are used for clinical purposes. Billing Codes Specimen Charges Stain Charges 69870 26049 1 1 07020 1 0 1:18 PM [facility] DERMATOPATHOLOGY LABORATORY Embedded Images 0 1:18 PM [facility] DERMATOPATHOLOGY LABORATORY Pathology/Cytology TISSUE SPECIMEN FROM SKIN / Unknown 08/27/2019 08/28/2019 10:17 AM MUSIC COORDINATOR Miscellaneous samples (specimen) TISSUE SPECIMEN FROM SKIN / Unknown 08/27/2019 08/28/2019 10:17 AM MUSIC COORDINATOR Arminda Boyd DO LAB - PATHOLOGY/C YTOLOGY ORDERABLES DERMATOPATHOLOGY LABORATORY [facility] - Department of Dermatology [address] [place] [address], 5th Floor Lab [address] [phone] documented in this encounter Visit Diagnoses Not on filedocumented in this encounter Care Teams Loom Changer Relationship Specialty Start Date End Date Elizabeth Wei MD PCP - General Family Medicine 01/22/19 09/25/23 Shagufta Khan MD [address] [place] [address] PCP - General Family Medicine 09/26/23 documented as of this encounter
--- OUTSIDE RECORDS SUMMARY | 2024-11-18 17:03 | XMS_ITS | Continuity of Care Document ---
Author Organization [facility] Address [address] [place] [address] Phone Care Team Providers Care Batting Machine Operator Insulation Name Role Phone Booth OD, Jv Unavailable Unavailable Advance Directives Directive Yes / No Effective Date File Name No Information Encounters Encounter Description Practice Location Reason(s) For Visit Diagnoses Date Provider Providers Copied on Encounter [facility], [id number] [place] [address] [address], [place], [place], [id number], [place] tel:[phone] [facility] No Information 8-200 5 Booth OD Jv. [address] , [address], [place], [address], [place]. tel:[phone] Family History Family Member Type Diagnosis Age At Onset No Information Payers Payer name Insurance type Covered democrat ID Authoriza tion(s) No Information Social History Type Description Quantity Date Captured Comments Sex Male Smoking Status No Information Chief Complaint And Reason For Visit No Information Reason For Referral Reason For Referral No Information History Of Present Illness Encounter Date Complaint History Of Prese nt Illness No Information Functional Status Date Functional Assessmen t No Information Instructions Date Instruction Additional Infor mation No Information Assessments Type Assessment Date No Information Patient Care Teams Name Effective Dates (start - stop) Status Members No Information
--- OUTSIDE RECORDS SUMMARY | 2024-11-18 17:03 | XMS_ITS | Encounter Summary ---
Author Organization [facility] Address [address] [place] [address] Care Team Providers Care Outside Salesperson Name Role Phone Elizabeth Wei MD Primary Care Provider [phone] Shagufta Khan MD Primary Care Provider [phone] Reason for Visit * Reason Onset Date Comments MEDICATION REFILL 04/19/2019 Encounter Details Date Type Department Care Team (Late st Contact Info) Description 04/19/2019 Refill [facility] [address] [place] [address] Rolando Long MD [address] [address] MEDICATION REFILL Social History Tobacco Use Types Packs/Day Years Used Date Smoking Tobacco: Former Cigarettes Q uit: 1976 Smokeless Tobacco: Never Alcohol Use Standard Drinks/Week Comments Yes 12 (1 standard drink = 0.6 oz pu re alcohol) 6 pack week/beer Sex and Gender Information Value Date Recorded Sex Assigned at Male 09/23/2021 1:27 PM CERTIFIED REGISTERED DENTAL ASSISTANT Gender Identity Male 06/18/2021 1:43 PM CDT [...] Description 12/31/2024 1:30 PM CDT Office Visit [facility] - Nephrology [address] [facility], [place] [address] Karthikeyan Elizabeth MD [facility] [place] [address] documented as of this encounter Visit Diagnoses Not on filedocumented in this encounter Care Teams Outside Salesperson Relationship Specialty Start Date End Date Elizabeth Wei MD PCP - General Family Medicine 01/22/19 09/25/23 Shagufta Khan MD [address] [place] [address] PCP - General Family Medicine 09/26/23 documented as of this encounter
--- OUTSIDE RECORDS SUMMARY | 2024-11-18 17:03 | XMS_ITS | Clinical Summary ---
Author Organization [facility] Address [address] [place] [address] Care Team Providers Care Freelance Programmer/App Developer Name Role Phone Shagufta Khan MD Primary Care Provider [phone] Source Comments [facility],non-owned Affiliates and Associated Physician Practices is amultiple site organization consisting of ambulatory clinics and hospital sitesin [place], [place], [place] and [place]. This disclosure is being madepursuant to the Care Everywhere program and may not contain all information available regarding this patient. Last updated 18.[facility] Allergies Active Allergy Reactions Criticality Noted Date Comments Penicillins Unknown Childhood allergy, unknown reaction. Medications * Be aware that medications may not be up to date on this document. Alwaysverify current medications with the patient. Medication Sig Dispensed Refills Start Date End Date Status amLODIPine (NORVASC) 10 MG tablet Take 1 (one) tablet by mouth at bedtime 11/06/2018 Active finasteride (PROSCAR) 5 MG tablet Take 1 (one) tablet by mouth once daily Taking as needed for swelling 11/06/2018 Active glimepiride (AMARYL) 4 MG tablet Take 1 (one) tablet by mouth daily with breakfast 11/06/2018 Active metFORMIN ER 24hr (GLUCOPHAGE XR) 500 MG tablet Take 2 (two) tablets by mouth 2 times daily 11/06/2018 Active pravastatin (PRAVACHOL) 20 MG tablet Take 1 (one) tablet by mouth once daily 11/06/2018 Active JANUVIA 100 MG tablet Take 1 (one) tablet by mouth once daily 11/06/2018 Active metoprolol succinate XL 24hr (TOPROL XL) 100 MG tablet Take 1 (one) tablet by mouth once daily Active apixaban (ELIQUIS) 5 MG tablet Take 1 (one) tablet by mouth 2 times daily Active sodium bicarbonate 650 MG tabletIndications:S tage 3 chronic kidney disease, unspecified whether stage 3a or 3b CKD (HCC) Take 1 (one) tablet by mouth 3 times daily 90 tablet 3 07/06/2021 Active Additional Information Patient taking differently:650 mg Oral2 TIMES DAILY, Reported on 11/22/2022 furosemide (Lasix) 20 MG tabletIndications:S tage 3 chronic kidney disease, unspecified whether stage 3a or 3b CKD (HCC) Take 2 (two) tablets by mouth 2 times daily 90 tablet 4 11/22/2022 Active Additional Information Patient taking differently:40 mg OralDAILY, Takes three times weekly, Reported on 07/02/2024 gabapentin (Neurontin) 300 MG capsule Take 1 (one) capsule by mouth at bedtime 04/21/2023 Active chlorthalidone (Hygroton) 25 MG tablet Take 1 (one) tablet by mouth once daily 07/30/2023 Active Jardiance 10 MG tablet Take 1 (one) tablet by mouth once daily 07/13/2023 Active Entresto 24-26 MG tablet Take 1 (one) tablet by mouth once daily 09/11/2023 Active pregabalin (Lyrica) 75 MG capsule Take 1 (one) capsule by mouth 2 times daily Active hydrALAZINE (Apresoline) 100 MG tabletIndications:C rohn's disease of colon with complication (HCC),Primary hypertension Take 0.5 (one-half) tablet by mouth 3 times daily 270 tablet 1 01/30/2024 Active cloNIDine (Catapres) 0.1 MG tablet TAKE 1 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 12/28/2017 Morbid obesity with BMI of 45.0-49.9, adult 06/14 Diffuse goiter 01/02/2017 Overview (01/22/2019): Overview: Goiter diffuse Disease of thyroid gland 01/02/2017 Overview (01/22/2019): Overview: Enlarged thyroid Unknown and unspecified causes of morbidity 06/13 Overview (01/22/2019): Overview: Morbid obesity with BMI of 45.0-49.9, adult Dyslipidemia associated with type 2 diabetes favian litus 06/27/2016 Overview (01/22/2019): Overview: 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 (FLUZONE HIGH-DOSE QUADRIVALENT; 65Y+), 0.7 ML (HD-IIV4) 04/28/2020,05/26/2019 Family History Medical History Relation Name Comments Cancer - Other Father Diabetes - Type 2 Father Hearing Loss - Unspecified Father Hypertension Father Lung Disease Father Phlebitis/Blood Clot Father Diabetes - Type 2 Mother Glaucoma Mother Hearing Loss - Unspecified Mother Hypertension Mother Relation Name Status Comments Father Mother Social History Tobacco Use Types Packs/Day Years Used Date Smoking Tobacco: Former Cigarettes Q uit: 1975 Smokeless Tobacco: Never Tobacco Cessation:Counseling Given: Not Answered Alcohol Use Standard Drinks/Week Comments Yes 12 (1 standard drink = 0.6 oz pu re alcohol) 6 pack week/beer Sex and Gender Information Value Date Recorded Sex Assigned at Male 09/23/2021 1:27 PM RETORT FIRER Gender Identity Male 06/18/2021 1:43 PM CDT Sexual Orientation Straight 06/18/2021 1: 43 PM CDT Last Filed Vital Signs Vital Sign Reading Time Taken Comments Blood Pressure 160/80 07/02/2024 1:35 PM RETORT FIRER Pulse 62 07/02/2024 1:35 PM RETORT FIRER Temperature 36.2 C (97.2 F) 01/30/2024 1:29 PM CDT Respiratory Rate 18 07/02/2024 1:35 PM RETORT FIRER Oxygen Saturation 97% 07/02/2024 1:35 PM RETORT FIRER Inhaled Oxygen Concentration - - Weight 156.2 kg (344 lb 6.4 oz) 07/02/2024 1:35 PM RETORT FIRER Height 185.4 cm (6' 1 ) 07/02/2024 1:35 PM RETORT FIRER Body Mass Index 45.44 07/02/2024 1:35 PM RETORT FIRER Plan of Treatment Upcoming Encounters Date Type Department Care Team (Late st Contact Info) Description 12/31/2024 1:30 PM CDT Office Visit [facility] - Nephrology [address] [place] [address], [place] [address] Karthikeyan Elizabeth MD [address] [place] [address] [place] [address] Health Maintenance Due Date Last Done Comments Opioid Medication Agreement - Annual 1945 DTAP/TDAP/TD VACCINES (1 - Tdap) 1965 PNEUMOCOCCAL VACCINE 50+ (1 of 2 - PCV) 1965 ZOSTER VACCINE (1 of 2) 1996 DIABETES RETINOPATHY SCREENING 01/22/2019 DIABETES-FOOT EXAM WITH MONOFILAMENT 01/22/2019 Respiratory Syncytial Virus (RSV) Vaccine Pt: or over 60 yrs (1 - 1-dose 75+ series) 2021 DIABETES-HGB A1C 12/15/2021 06/17/2021 COVID-19 VACCINE ( season) 2024 DEPRESSION SCREENING 08/13/2024 DIABETES - URINE PROTEIN SCREENING 08/13/2024 05/08/2024, 09/04/2023, 11/13/2022, Additional history exists MEDICARE AWV CALENDAR YEAR 2024 INFLUENZA VACCINE (Season Ended) 2025 05/01/2022, 04/13/2021, 03/31/2021, Additional history exists DIABETES-SERUM CREATININE 05/08/20252023, 01/21/2024, 09/04/2023, Additional history exists HEPATITIS C SCREENING Completed 04/27/2023 HEPATITIS B VACCINE Aged Out No longe r eligible based on patient's age to complete this topic HIB VACCINE Aged Out No longer eligi ble based on patient's age to complete this topic HPV VACCINE Aged Out No longer eligi ble based on patient's age to complete this topic MENINGOCOCCAL (Group B) VACCINE SHARED DECISION-MAKING Aged Out No longer eligible based on patient's age to complete this topic MENINGOCOCCAL GROUPS A/C/Y/W VACCINE Aged Out No longer eligible based on patient's age to complete this topic Goals Goal Patient Goal Type Associated Problems Recent Progress Patient-Stated? Author Medication Management General On track( 024 1:47 PM RETORT FIRER) Kimberly Church, RN Note: Expected end date: 11/16/2021 Interventions: Medication to be taken as prescribed. Pt to inform physician regarding any changes in medications. Pt to make sure request refills at least 1 week prior before last dose. Procedures Procedure Name Priority Date/Time Associated Diagnosis Comments MICROALB/CREAT RATIO URINE RANDOM PANEL Routine 05/08/2024 1:36 PM CDT RENAL FUNCTION PANEL Routine 05/08/2024 1:36 PM CDT HEMOGLOBIN A1C (EXTERNAL RESULT ENTRY) Routine 06/17/2021 from Last 3 Months or Most Recently Relevant to Health Maintenance Results * (ABNORMAL) MICROALB/CREAT RATIO URINE RANDOM PANEL (05/08/2024 1:36 PM CDT) Creatinine Urine 50.3 Not Estab. mg/dL [facility] INSURANCE BILL Microalbumin Urine 69.5 Not Estab. ug/mL [facility] INSURANCE BILL Microalbumin/Crea tinine Ratio 138(H) 0 - 29 mg/g creat [facility] INSURANCE BILL Comment: Normal: 0 - 29 Moderately increased: 30 - 300 Severely increased: >300 05/08/2024 1:36 PM CDT 05/08/2024 Narrative [facility] INSURANCE BILL - 05/09/2024 10:11 AM CDT Performed at: 01 - [address] [id number] Gaming Floor Supervisor: Peyman Lilly PhD, Phone: [phone] Karthikeyan Farmer MD LAB - UR INE CHEMISTRY ORDERABLES Performing Organization Address City/State/[facility] Co de Phone Number [facility] INSURANCE BILL [address] [place] [address] * (ABNORMAL) RENAL FUNCTION PANEL (05/08/2024 1:36 PM CDT) Glucose 107(H) 70 - 99 mg/dL [facility] INSURANCE BILL BUN 25 8 - 27 mg/dL [facility] INSURANCE BILL Creatinine 1.30(H) 0.76 - 1.27 mg/dL [facility] INSURANCE BILL eGFR by CKD-EPI 57(L) >59 mL/min/1.7 3 [facility] INSURANCE BILL BUN/Creatinine Ratio 19 10 - 24 [facility] INSURANCE BILL Sodium 139 134 - 144 mmol/L [facility] INSURANCE BILL Potassium 5.2 3.5 - 5.2 mmol/L [facility] INSURANCE BILL Chloride 102 96 - 106 mmol/L [facility] INSURANCE BILL CO2 21 20 - 29 mmol/L [facility] INSURANCE BILL Calcium 9.1 8.6 - 10.2 mg/dL [facility] INSURANCE BILL Phosphorus 3.9 2.8 - 4.1 mg/dL [facility] INSURANCE BILL Albumin 4.1 3.8 - 4.8 g/dL [facility] INSURANCE BILL 05/08/2024 1:36 PM CDT 05/08/2024 Narrative [facility] INSURANCE BILL - 05/09/2024 8:17 AM CDT Performed at: [facility] [id number] [place], [place] [id number] Gaming Floor Supervisor: Peyman Lilly PhD, Phone: [phone] Karthikeyan Farmer MD LAB - CH EMISTRY ORDERABLES Performing Organization Address [facility] de Phone Number [facility] INSURANCE BILL [address] [place] [address] * (ABNORMAL) HEMOGLOBIN A1C (EXTERNAL RESULT ENTRY) (06/17/2021) [facility] [address] Hemoglobin A1c (EXTERNAL RESULT) 7.3(A) 4.8 - 5.6 % [facility] INSURANCE BILL Blood BLOOD SPECIMEN / Unknown 06/17/2021 Historical Provider LAB - CHEMISTRY O RDERABLES Performing Organization Address [facility] de Phone Number [facility] INSURANCE BILL [address] [place] [address] from Last 3 Months or Most Recently Relevant to Health Maintenance Advance Directives * Full Code (Latest Code Status on File) Date Activated Date Inactivated Comments 02/27/2019 3:26 PM 03/01/2019 6:53 PM * Full Code Date Activated Date Inactivated Comments 02/27/2019 6:49 AM 02/27/2019 3:26 PM Care Teams Freelance Programmer/App Developer Relationship Specialty Start Date End Date Shagufta Khan MD [address] [place] [address] PCP - General Family Medicine 09/26/23
--- OUTSIDE RECORDS SUMMARY | 2024-11-18 17:03 | XMS_ITS | Encounter Summary ---
Author Organization [facility] Health Address [address] [place] [address] Care Team Providers Care Neon Pumper Name Role Phone Elizabeth Wei MD Primary Care Provider [phone]- [phone] Shagufta Khan MD Primary Care Provider [phone] Encounter Details Date Type Department Care Team (Late st Contact Info) Description 12/24/2019 Lab Requisition [facility] [address] [facility], [place] [id number] Arminda Boyd, DO [address] [facility] 3 [place] [address] Social History Tobacco Use Types Packs/Day Years Used Date Smoking Tobacco: Former Cigarettes Q uit: 1976 Smokeless Tobacco: Never Alcohol Use Standard Drinks/Week Comments Yes 12 (1 standard drink = 0.6 oz pu re alcohol) 6 pack week/beer Sex and Gender Information Value Date Recorded Sex Assigned at Male 09/23/2021 1:27 PM STAFFING ASSISTANT Gender Identity Male 06/18/2021 1:43 PM [...] Description 12/31/2024 1:30 PM CDT Office Visit [facility] - Nephrology [address] [facility], [place] [address] Karthikeyan Elizabeth MD [address] [place] [address] [place] [phone] documented as of this encounter Procedures Procedure Name Priority Date/Time Associated Diagnosis Comments DERMATOPATHOLOGY Routine 12/23/2019 12:0 0 AM CDT documented in this encounter Results * DERMATOPATHOLOGY (12/23/2019 12:00 AM CDT) Case Report Dermatopathology Report Case: [id number] Authorizing Provider: Arminda Boyd DO Collected: 12/23/2019 12:00 AM Ordering Location: [facility] Lab Received: 12/24/2019 11:36 AM Pathologist: Reema Payne MD Specimen: Skin, right forearm 0 1:14 PM CDT DERMATOPATHOLOGY LABORATORY Final Diagnosis Specimen A. SKIN, right forearm: LICHEN PLANUS-LIKE KERATOSIS (BENIGN LICHENOID KERATOSIS) (L82.1) 0 1:14 PM CDT DERMATOPATHOLOGY LABORATORY Clinical History R/O NMSC. 0 1:14 PM CDT DERMATOPATHOLOGY LABORATORY Gross Description Specimen A: Received is one formalin filled container labeled with the patient's name and designated right forearm. The specimen consists of a shave measuring [id number]. Jar 0. 0 1:14 PM CDT DERMATOPATHOLOGY LABORATORY Microscopic Description Specimen A. SKIN, right forearm: The epidermis is mildly acanthotic. There is a lichenoid infiltrate with vacuolar changes of basilar keratinocytes and scattered necrotic keratinocytes. 0 1:14 PM CDT DERMATOPATHOLOGY LABORATORY Disclaimer An external and internal positive and negative controls are appropriate for the histochemical, immunohistochemical and immunofluorescence stain(s) in this case (if any), except where stated explicitly. The performance characteristics of the stain(s) cited in this report were developed and its performance characteristic determined by the Dermatopathology Laboratory at [facility], directed by Dr. John Adams. These tests need not be, and therefore are not, approved by the [place] Food and Drug Administration. The tests are used for clinical purposes. Billing Codes Specimen Charges Stain Charges 22273 1 0 1:14 PM CDT DERMATOPATHOLOGY LABORATORY Embedded Images 0 1:14 PM CDT DERMATOPATHOLOGY LABORATORY Pathology/Cytolog y TISSUE SPECIMEN FROM SKIN / Unknown 12/23/2019 12/24/2019 11:36 AM CDT Arminda Boyd DO LAB - PATHOLOGY/C YTOLOGY ORDERABLES DERMATOPATHOLOGY LABORATORY [facility] - Department of Dermatology [address] [facility] 5th Floor Lab B [address] [phone] documented in this encounter Visit Diagnoses Not on filedocumented in this encounter Care Teams Neon Pumper Relationship Specialty Start Date End Date Elizabeth Wei MD PCP - General Family Medicine 01/22/19 09/25/23 Shagufta Khan MD [address] [place] [address] PCP - General Family Medicine 09/26/23 documented as of this encounter
--- OUTSIDE RECORDS SUMMARY | 2024-11-18 17:03 | XMS_ITS | Encounter Summary ---
Author Organization [facility] Health Address [address] [place] [place] [address] Care Team Providers Care Microsoft Solutions Architect Name Role Phone Elizabeth Wei MD Primary Care Provider [phone]- [phone] Shagufta Khan MD Primary Care Provider [phone] Reason for Visit * Reason Onset Date Comments MEDICATION REFILL 11/02/2020 Encounter Details Date Type Department Care Team (Late st Contact Info) Description 11/02/2020 Refill [facility] - Nephrology [address] [place] [address], [place] [address] Karthikeyan Elizabeth MD [address] [place] [address] [place] [address] MEDICATION REFILL Social History Tobacco Use Types Packs/Day Years Used Date Smoking Tobacco: Former Cigarettes Q uit: 1976 Smokeless Tobacco: Never Alcohol Use Standard Drinks/Week Comments Yes 12 (1 standard drink = 0.6 oz pu re alcohol) 6 pack week/beer Sex and Gender Information Value Date Recorded Sex Assigned at Male 09/23/2021 1:27 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 Gender Identity Male 06/18/2021 1:43 PM CDT [...] Office Visit [facility] - Nephrology [address] [place] [address], [place] [phone] Karthikeyan Elizabeth MD [address] [place] [address] [place] [address] documented as of this encounter Visit Diagnoses Not on filedocumented in this encounter Care Teams Microsoft Solutions Architect Relationship Specialty Start Date End Date Elizabeth Wei MD PCP - General Family Medicine 01/22/19 09/25/23 Shagufta Khan MD [address] [place] [address] PCP - General Family Medicine 09/26/23 documented as of this encounter
--- OUTSIDE RECORDS SUMMARY | 2024-11-18 17:03 | XMS_ITS | Encounter Summary ---
Author Organization [facility] Health Address [address] [facility] [place] [address] Care Team Providers Care Apprentice Embalmer Name Role Phone Elizabeth Wei MD Primary Care Provider [phone]- [phone] Shagufta Khan MD Primary Care Provider [phone] Encounter Details Date Type Department Care Team (Late st Contact Info) Description 06/05/2019 Lab Requisition [facility] [address] [facility], [place] [phone] Arminda Boyd, DO [address] [facility] 3 DEPT [place] [address] Social History Tobacco Use Types Packs/Day Years Used Date Smoking Tobacco: Former Cigarettes Q uit: 1976 Smokeless Tobacco: Never Alcohol Use Standard Drinks/Week Comments Yes 12 (1 standard drink = 0.6 oz pu re alcohol) 6 pack week/beer Sex and Gender Information Value Date Recorded Sex Assigned at Male 09/23/2021 1:27 PM 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 Gender Identity Male 06/18/2021 1:43 PM CDT [...] Description 12/31/2024 1:30 PM CDT Office Visit [facility] - Nephrology [address] [facility], [place] [address] Karthikeyan Elizabeth MD [address] [place] [address] [place] [address] documented as of this encounter Procedures Procedure Name Priority Date/Time Associated Diagnosis Comments DERMATOPATHOLOGY Routine 06/04/2019 12:0 0 AM CDT documented in this encounter Results * DERMATOPATHOLOGY (06/04/2019 12:00 AM CDT) Case Report Dermatopathology Report Case: [id number] Authorizing Provider: Arminda Boyd DO Collected: 06/04/2019 12:00 AM Ordering Location: [facility] Lab Received: 06/05/2019 05:22 AM Pathologist: Erika Adams MD Specimen: Skin, right FA 9 2:28 PM CDT DERMATOPATHOLOGY LABORATORY Final Diagnosis Specimen A. SKIN, right FA: LICHEN PLANUS-LIKE KERATOSIS (BENIGN LICHENOID KERATOSIS) (L82.1) 9 2:28 PM CDT DERMATOPATHOLOGY LABORATORY Clinical History R/O NMSC. 9 2:28 PM CDT DERMATOPATHOLOGY LABORATORY Gross Description Specimen A: Received is one formalin filled container labeled with the patient's name and designated right FA. The specimen consists of a shave measuring 5k5i3yg. Jar 0. 9 2:28 PM CDT DERMATOPATHOLOGY LABORATORY Microscopic Description Specimen A. SKIN, right FA: The epidermis is mildly acanthotic. There is a lichenoid infiltrate with vacuolar changes of basilar keratinocytes and scattered necrotic keratinocytes. 9 2:28 PM CDT DERMATOPATHOLOGY LABORATORY Disclaimer An external and internal positive and negative controls are appropriate for the histochemical, immunohistochemical and immunofluorescence stain(s) in this case (if any), except where stated explicitly. The performance characteristics of the stain(s) cited in this report were developed and its performance characteristic determined by the Dermatopathology Laboratory at [facility], directed by Dr. John Adams. These tests need not be, and therefore are not, approved by the [place] Food and Drug Administration. The tests are used for clinical purposes. Billing Codes Specimen Charges Stain Charges 95694 1 9 2:28 PM CDT DERMATOPATHOLOGY LABORATORY Embedded Images 2:28 PM CDT DERMATOPATHOLOGY LABORATORY Pathology/Cytolog y TISSUE SPECIMEN FROM SKIN / Unknown 06/04/2019 06/05/2019 5:22 AM CDT Arminda Boyd DO LAB - PATHOLOGY/C YTOLOGY ORDERABLES DERMATOPATHOLOGY LABORATORY [facility] - Department of Dermatology [address] [facility] [place] 5th Floor Lab B [address] [phone] documented in this encounter Visit Diagnoses Not on filedocumented in this encounter Care Teams Apprentice Embalmer Relationship Specialty Start Date End Date Elizabeth Wei MD PCP - General Family Medicine 01/22/19 09/25/23 Shagufta Khan MD [address] [place] [address] PCP - General Family Medicine 09/26/23 documented as of this encounter
--- OUTSIDE RECORDS SUMMARY | 2024-11-18 17:03 | XMS_ITS | Encounter Summary ---
Author Organization [facility] Address [address] [place] [address] Care Team Providers Care Help Desk Team Leader Name Role Phone Elizabeth Wei MD Primary Care Provider [phone]- [phone] Shagufta Khan MD Primary Care Provider [phone] Encounter Details Date Type Department Care Team (Late Contact Info) Description 02/25/2019 Lab Requisition [facility] [address] [place] [phone] Leola Pereyra MD [address] [place] [address] [address] [place] [address] Social History Tobacco Use Types Packs/Day Years Used Date Smoking Tobacco: Former Cigarettes Q uit: 1976 Smokeless Tobacco: Never Alcohol Use Standard Drinks/Week Comments Yes 12 (1 standard drink = 0.6 oz pu re alcohol) 6 pack week/beer Sex and Gender Information Value Date Recorded Sex Assigned at Male 09/23/2021 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 Gender Identity Male 06/18/2021 1:43 PM CDT Sexual Orientation Straight 06/18/2021 1: 43 PM CDT documented as of this encounter Plan of Treatment Upcoming Encounters Date Type Department Care Team (Late Contact Info) Description 12/31/2024 1:30 PM CDT Office Visit [facility] - Nephrology [address] [place] [address] [place] [address] Karthikeyan Elizabeth MD [facility] [facility] 2L [place] [address] documented as of this encounter Procedures Procedure Name Priority Date/Time Associated Diagnosis Comments DERMATOPATHOLOGY Routine 02/24/2019 12:0 0 AM CDT documented in this encounter Results * DERMATOPATHOLOGY (02/24/2019 12:00 AM CDT) Case Report Dermatopathology Report Case: [id number] Authorizing Provider: Leola Pereyra MD Collected: 02/24/2019 12:00 AM Pathologist: Caitie Hutchins MD Received: 02/25/2019 06:38 AM Specimen: Skin, mid lower back 9 3:52 PM CDT DERMATOPATHOLOGY LABORATORY Final Diagnosis Specimen A. 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 The specimen consists of a shave biopsy measuring 40s04i1 mm. Jar 0. 9 3:52 PM CDT DERMATOPATHOLOGY LABORATORY Microscopic Description Specimen A. SKIN, mid lower back: There is a proliferation melanocytes distributed in an irregular pattern singly and in nests with prominent dyscohesion and clefting around collections of melanocytes at the dermal-epidermal junction. In the dermis there are irregular nests and single scattered melanocytes with patchy chronic inflammation. There is focal fibrosis and dermal melanophages. This lesion is present at the lateral margins of the specimen and at the deep margin in association with adnexal structures, highlighted by an immunostain for MART-1/Melan-A. An immunostain for HMB-45 shows retained staining within dermal melanocytes. 3:52 PM CDT DERMATOPATHOLOGY LABORATORY Disclaimer An external and internal positive and negative controls are appropriate for the histochemical, immunohistochemical and immunofluorescence stain(s) in this case (if any), except where stated explicitly. The performance characteristics of the stain(s) cited in this report were developed and its performance characteristic determined by the Dermatopathology Laboratory at [facility], directed by Dr. John Adams. These tests need not be, and therefore are not, approved by the [place] Food and Drug Administration. The tests are used for clinical purposes. Billing Codes Specimen Charges Stain Charges 08933 1 14290 09207 1 1 3:52 PM CDT DERMATOPATHOLOGY LABORATORY Embedded Images 3:52 PM CDT DERMATOPATHOLOGY LABORATORY Synoptic Report MELANOMA OF THE SKIN: Biopsy (Melanoma Bx - A) SPECIMEN Procedure: Biopsy, shave Specimen Laterality: Midline TUMOR Tumor Site: Skin of trunk: Mid lower back : Histologic Type: Superficial spreading melanoma Maximum Tumor (Breslow) Thickness in Millimeters: 1.0 Millimeters (mm) Tumor Extent: Macroscopic Satellite Nodule(s): Not identified Ulceration: Not identified Anatomic (Tonny) Level: IV (melanoma invades reticular dermis) Accessory Findings: Mitotic Rate: 1 mitoses per mm2 Microsatellite(s): Not identified Lymphovascular Invasion: Not identified Neurotropism: Not identified Tumor-Infiltrating Lymphocytes: Present, brisk Tumor Regression: Present MARGINS: Peripheral Margins: Uninvolved by invasive melanoma Status of Melanoma In Situ Involvement at Peripheral Margins: Involved by melanoma in situ Location: Lateral margin and deep margin in association with adnexal structure Deep Margin: Uninvolved by invasive melanoma PATHOLOGIC STAGE CLASSIFICATION (pTNM, AJCC 8th Edition): Primary Tumor (pT): pT1b Comment(s) Comment(s): This case was shared with Dr. John Adams who agrees. 3:52 PM CDT DERMATOPATHOLOGY LABORATORY Pathology/Cytolog y TISSUE SPECIMEN FROM SKIN / Unknown 02/24/2019 02/25/2019 6:38 AM CDT Leola Pereyra MD LAB - PATHOLOGY/CYT OLOGY ORDERABLES DERMATOPATHOLOGY LABORATORY [facility] - Department of Dermatology [facility] [facility], 5th Floor Lab B [address] [phone] documented in this encounter Visit Diagnoses Not on filedocumented in this encounter Care Teams Help Desk Team Leader Relationship Specialty Start Date End Date Elizabeth Wei MD PCP - General Family Medicine 01/22/19 09/25/23 Shagufta Khan MD [address] [place] [address] PCP - General Family Medicine 09/26/23 documented as of this encounter
== END 2024-11-18 16:17 | disposition home or self-care (01) ==
LOC: ANHIMG 16:16
PROVIDERS: PCP Family Medicine; Visit Provider Internal Medicine Pulmonary Disease
DX: J84.9 Interstitial pulmonary disease, unspecified (principal); E04.2 Nontoxic multinodular goiter
CPT/HCPCS: 71250

== ENCOUNTER 2024-12-09 13:48 | Outpatient (CLI) | payer MEDICARE, SELFPAY ==
--- OUTSIDE RECORDS SUMMARY | 2024-12-09 15:05 | XMS_ITS | Encounter Summary ---
Author Organization [facility] Health Address [address] [facility] [place] [address] Care Team Providers Care Concaver Name Role Phone Elizabeth Wei MD Primary Care Provider [phone]- [phone] Shagufta Khan MD Primary Care Provider [phone] Reason for Visit * Reason Onset Date Comments MEDICATION REFILL 04/19/2019 Encounter Details Date Type Department Care Team (Late st Contact Info) Description 04/19/2019 Refill [facility] [address] [place] [address] Rolando Long MD [address] [facility] [address] [place] [address] MEDICATION REFILL Social History Tobacco Use Types Packs/Day Years Used Date Smoking Tobacco: Former Cigarettes Q uit: 1976 Smokeless Tobacco: Never Alcohol Use Standard Drinks/Week Comments Yes 12 (1 standard drink = 0.6 oz pu re alcohol) 6 pack week/beer Sex and Gender Information Value Date Recorded Sex Assigned at Male 09/23/2021 1:27 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 Answer Date of Assessment Author No 02/27/2019 5:00 PM Avila Tate RN * Is person blind or have serious difficulty seeing? Answer Date of Assessment Author No 02/27/2019 5:00 PM Avila Tate RN * Does person have serious difficulty walking/climbing stairs? Answer Date of Assessment Author No 02/27/2019 5:00 PM Avila Tate RN * Does person have difficulty dressing/bathing? Answer Date of Assessment Author No 02/27/2019 5:00 PM Avila Tate RN * Does person have difficulty doing errands alone? Answer Date of Assessment Author No 02/27/2019 5:00 PM Avila Tate RN documented as of this encounter Mental Status * Does person have difficulty concentrating/remembering/making decisions? Answer Entry Date Author No 02/27/2019 5:00 PM Avila Tate RN documented in this encounter Plan of Treatment Upcoming Encounters Date Type Department Care Team (Late st Contact Info) Description 12/31/2024 1:30 PM CDT Office Visit [facility] - Nephrology [address] [facility], [place] [address] Karthikeyan Elizabeth MD [address] [place] [address] [place] [address] documented as of this encounter Visit Diagnoses Not on filedocumented in this encounter Care Teams Concaver Relationship Specialty Start Date End Date Elizabeth Wei MD PCP - General Family Medicine 01/22/19 09/25/23 Shagufta Khan MD [address] [place] [address] PCP - General Family Medicine 09/26/23 documented as of this encounter
--- OUTSIDE RECORDS SUMMARY | 2024-12-09 15:05 | XMS_ITS | Clinical Summary ---
Author Organization [facility] [address] Address [address] [place] [address] Care Team Providers Care Stores Laborer Name Role Phone Shagufta Khan MD Primary Care Provider [phone] Allergies Active Allergy Reactions Criticality Noted Date Comments Penicillins Unknown Low Childhood Medications metFORMIN (GLUCOPHAGE) 500 mg tablet take 2 Tablet (1000MG) by oral route 2 times every day with morning and evening meals 0 04/05/2012 Active hydrALAZINE (APRESOLINE) 100 mg tablet take 1 tablet (100MG) by oral route 2 times every day with food 0 04/05/2012 Active SITagliptin (JANUVIA) 100 mg tablet take 1 tablet (100MG) by oral route every day 0 04/05/2012 Active finasteride (PROSCAR) 5 mg tablet take 1 tablet (5MG) by oral route every day 0 04/05/2012 Active glimepiride (AMARYL) 4 mg tablet take 1 tablet by oral route every day 0 0 01/02/2017 Active pravastatin (PRAVACHOL) 20 mg tabletIndication s:hyperlipidemia Take 1 tablet (20 mg total) by mouth nightly Active sodium bicarbonate 650 mg tabletIndication s:renal tubular acidosis Take 1 tablet (650 mg total) by mouth 3 (three) times a day Active furosemide (LASIX) 40 mg tabletIndication s:Edema,hyperten areli Take 1 tablet (40 mg total) by mouth daily 07/25/2021 Active acetaminophen (TYLENOL) 325 mg tablet Take 2 tablets (650 mg total) by mouth every 6 (six) hours as needed for pain Active gabapentin (NEURONTIN) 300 mg capsule 07/21/2022 Active cloNIDine (CATAPRES) 0.1 mg tablet Take 1 tablet (0.1 mg total) by mouth 2 (two) times a day 02/06/2024 Active Eliquis 5 mg tablet TAKE 1 TABLET TWICE A DAY 180 tablet 3 03/06/2024 Active amLODIPine (NORVASC) 10 mg tablet TAKE 1 TABLET DAILY 90 tablet 3 03/06/2024 Active metoprolol XL (TOPROL-XL) 100 mg 24 hr tablet TAKE 1 TABLET DAILY 90 tablet 3 03/06/2024 Active sacubitriL-valsa rtan (ENTRESTO) 24-26 mg tabletIndication s:chronic heart failure Take 1 tablet by mouth 2 (two) times a day 180 tablet 3 07/30/2024 Active empagliflozin (JARDIANCE) 10 mg tablet Take 1 tablet (10 mg total) by mouth daily 90 tablet 3 07/31/2024 Active chlorthalidone (HYGROTON) 25 mg tablet Take 1 tablet (25 mg total) by mouth daily 90 tablet 3 08/11/2024 Active Active Problems Problem Noted Date Diagnosed Date Chronic combined systolic and diastolic heart fa ilure 07/15/2024 Nonischemic cardiomyopathy 06/22/2023 Pulmonary HTN 09/22/2022 QT prolongation 04/18/2022 S/P ablation of atrial fibrillation 12/15/2021 Chronic anticoagulation 09/23/2021 Atrial fibrillation 04/26/2021 Assessment & Plan (10/06/2021 9:53 AM CARTON MAKING MACHINIST): With symptoms of exertional dyspnea/exercise intolerance, attempted DCCV 06/02, now s/p PVI with EP on 10/05 which occurred w/o complication. -Start PPI daily for 30d -Remained in NSR on tele after procedure -Continue home metoprolol 150 BID, apixaban 5 mg BID -Patient to follow up with EP for further monitoring and management Chronic fatigue 02/02/2021 Medication side effects 02/02/2021 Hypertension associated with diabetes 09/18/2019 Chronic heart failure with p reserved ejection fraction (CMS/HCC) 09/18/2019 Assessment & Plan (10/06/2021 9:52 AM CARTON MAKING MACHINIST): Hx of diastolic dysfunction, mild leg swelling at baseline (also in setting of BMi 47, HTN) -Continue home telmisartan 80 mg every day, metoprol 150 mg BID, amlodipine 10 qdaily, chlorthalidone 25 qdaily and hydralazine at dc Coronary artery disease invo lving [place] coronary artery of [place] heart without angina pectoris 12/28/2017 Assessment & Plan (10/06/2021 9:51 AM CARTON MAKING MACHINIST): -Continue home metoprolol/statin/telmisartan Morbid obesity with BMI of 45.0-49.9, adult 06/14 Disease of thyroid gland 01/02/2017 Overview (01/05/2017): Enlarged thyroid Diffuse goiter 01/02/2017 Overview (01/05/2017): Goiter diffuse Body mass index 40+ - severely obese 06/27/2016 Overview (11/17/2016): Morbid obesity with BMI of 45.0-49.9, adult Mixed diabetic hyperlipidemi a associated with type 2 diabetes mellitus ([facility]) 06/27/2016 Overview (11/17/2016): 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 ([facility]) 01/04/2016 Overview (11/17/2016): DM (diabetes mellitus), secondary, with neurologic complications Assessment & Plan (10/06/2021 9:50 AM CARTON MAKING MACHINIST): -Continue home januvia 100 qS, metformin 1G BID, glimepiride at discharge ANTONIO on CPAP 07/06/2015 Overview (11/17/2016): ANTONIO on CPAP Assessment & Plan (10/06/2021 9:51 AM CARTON MAKING MACHINIST): -Use CPAP while sleeping Hypertensive heart disease with congestive heart failure 11/24/2014 Overview (11/17/2016): Congestive heart failure, unspecified Muscle pain 03/11/2014 Overview (11/17/2016): Myalgia Encounters Date Type Department Care Team Description 12/05/2024 3:25 PM CDT Lab [facility]) [address] [place] [address] Neuropathy; B12 nutritional deficiency 12/05/2024 1:00 PM CDT Office Visit [facility] Neuro Muscle [address] [place] [address] [place] [address] Yasemin Choudhary MD PhD B12 nutritional deficiency (Primary Dx); Muscle pain; Neuropathy 10/09/2024 11:30 AM CARTON MAKING MACHINIST Office Visit [facility] Surgery [address] [place] [address] [place] [address] Yoly Horton MD Bilateral carpal tunnel syndrome (Primary Dx); Guyon syndrome, right; Guyon syndrome, left; Cubital tunnel syndrome on right; Cubital tunnel syndrome on left from Last 3 Months Immunizations Immunization Administration Dates Next Due Influenza, Unspecified 04/13/2021 Surgical History Surgery Date Site/Laterality Comments OTHER SURGICAL HISTORY 1989 Carpal Tunnel - bilat TONSILLECTOMY Tonsillectomy KNEE SURGERY 2007 Bilateral Knee Surgery HERNIA REPAIR 08/13/1952 - 08/12/1953 APPENDECTOMY 08/13/1953 - 08/12/1954 ABLATION 08/13/2021 - 08/12/2022 CATARACT EXTRACTION W/ INTRAOCULAR LENS IMPLANT 08/13/2020 - 08/12/2021 Left CATARACT EXTRACTION W/ INTRAOCULAR LENS IMPLANT 08/13/2020 - 08/12/2021 Right MELANOMA RESECTION 08/13/2018 - 08/12/2019 on the back CARDIAC CATHETERIZATION JOINT REPLACEMENT 2007 Medical History Medical History Date Comments Hypertension 1996 Hypertension Congestive heart failure (HCC) C ongestive Heart Failure Cardiovascular disease Coronary Artery Disease Sleep apnea Melanoma (HCC) Kidney disease Diabetes (HCC) 2001 BPH (benign prostatic hyperplasia) Morbid obesity (HCC) DJD (degenerative joint disease), lumbar DJD (degenerative joint disease) of knee Cataract 2019 Heart disease 2013 Family History Medical History Relation Name Comments Cancer Father Torres Alston Lung cancer Father Torres Alston Cancer, lung; C ause of : Cancer, lung Arthritis Mother Kelsi Diabetes Mother Kelsi Diabetes type II Mother Kelsi Diabetes Ty pe II; Cause of : Diabetes Type II Hypertension Mother Kelsi Obesity Mother Kelsi Diabetes Sister 2 Naz Other Sister 2 Naz End Stage Renal Disease; Cause of : End Stage Renal Disease Rheum arthritis Sister 2 Naz Relation Name Status Comments Father Torres Alston (Age 6) Mother Kelsi (Age 79) Sister 1 (Age 55) Sister 2 Naz Social History Tobacco Use Types Packs/Day Years Used Date Smoking Tobacco: Former Cigarettes 1 10 1973 Pipe Cigars Smokeless Tobacco: Never Tobacco Cessation:Counseling Given: Not Answered Comments:Smoked for approximately a 10yr period from age 19 to 29 Alcohol Use Standard Drinks/Week Comments Yes 0 (1 standard drink = 0.6 oz pur e alcohol) AUDIT-C Answer Date Recorded Q1: How often do you have a drink containing alc ohol? 2-3 times a week 11/08/2021 Q2: How many drinks containi ng alcohol do you have on a typical day when you are drinking? 3 or 4 11/08/2021 Q3: How often do you have si x or more drinks on one occasion? 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 [place] Not on file Not on file Not on file Obstetrics History Last Filed Vital Signs Vital Sign Reading Time Taken Comments Blood Pressure 156/92 12/05/2024 12:56 PM CDT Pulse 76 12/05/2024 12:56 PM CDT Temperature 36.3 C (97.4 F) 05/09/2024 11:15 AM CDT Respiratory Rate 23 11/08/2021 8:50 AM CDT Oxygen Saturation 92% 07/15/2024 11:26 AM CARTON MAKING MACHINIST Inhaled Oxygen Concentration - - Weight 146.1 kg (322 lb) 12/05/2024 12:56 PM CDT Height 185.4 cm (6' 1 ) 12/05/2024 12:56 PM CDT Body Mass Index 42.48 12/05/2024 12:56 PM CDT Plan of Treatment Health Maintenance Due Date Last Done Comments Albumin Creatinine Ratio, Urine 1946 Depression Screening 1946 Hemoglobin A1C 1946 Dilated Eye Exam 1946 Foot Exam 1946 Hepatitis B Screening 1964 Zoster Vaccine (1 of 2) 1996 Abdominal Aortic Aneurysm (A AA) Screen 2011 Well Visit 65+ 2011 DTaP/Tdap/Td Vaccine (2 - Td or Tdap) 02/08/2020 02/07/2010, 08/13/2009 Pneumococcal vaccine 65+ (3 of 3 - PCV20 or PCV21) 05/03/2021 05/03/2016, 08/13/2015, 05/19/2010 Fall Risk Assessment 11/08/2022 11/08/2021 Covid-19 Vaccine (4 - 2023-2 5 season) 2024 06/09/2021, 11/01/2020, 09/30/2020 Influenza Vaccine (Season Ended) 2025 04/13/2021, 03/31/2021, 04/28/2020, Additional history exists eGFR 05/09/2025 05/09/2024, 06/13, 04/27/2023, Additional history exists Lipid Panel 06/30/2025 06/30/2024, 02/11, 03/27/2023, Additional history exists Hepatitis C Screening Completed 04/27/2023 Medical Devices Implanted Type Area Production Machine Tender Device Identifier Shelf Expiration Date Model / Serial / Lot Vascade Mvp 6-12fr Venous Closure - [id number] Implanted:Qty: 1 on 10/05/2021 by Luis Tran MD at [facility] Collagen Right: Femoral [employer] 06/27/2023 800-612C -[id number] / / [id number] Description:vein Vascade Mvp 6-12fr Venous Closure - [id number] - [id number] Implanted:Qty: 1 on 10/05/2021 by Luis Tran MD at [facility] Collagen Left: Femoral [employer] 06/27/2023 [id number] -[id number] / [id number] / [id number] Description:vein Vascade Mvp 6-12fr Venous Closure - [id number] Implanted:Qty: 1 on 10/05/2021 by Luis Tran MD at [facility] Collagen Right: Femoral [employer] 06/27/2023 [id number] -[id number] / / [id number] Description:vein Other - See Comments Other - see comments Knee Description:Bilateral knee r eplacements Other - See Comments Other - see comments Left: Knee Other - See Comments Other - see comments Right: Knee Procedures Procedure Name Priority Date/Time Associated Diagnosis Comments LIPID PANEL Routine 06/30/2024 10:21 AM CARTON MAKING MACHINIST EGFR Routine 05/09/2024 12:09 PM CDT Interstitial pulmonary disease (HCC) High risk medication use HEPATITIS PANEL, ACUTE Routine 04/27/2023 11:14 AM CDT Interstitial pulmonary disease (HCC) from Last 3 Months or Most Recently Relevant to Health Maintenance Results * (ABNORMAL) Lipid panel (06/30/2024 10:21 AM CARTON MAKING MACHINIST) Pathologist [facility] SCRIBED Cholesterol, Total 144 0 - 200 EXTERNAL LAB SCRIBED HDL 45 40 - 100 EXTERNAL LAB SCRIBED LDL 64 0 - 100 EXTERNAL LAB SCRIBED Triglycerides 213(A) 0 - 150 EXTERNAL LAB Blood us Historical Provider LAB BLOOD ORDERABLES Edit ed Result - Final EXTERNAL LAB * (ABNORMAL) eGFR (05/09/2024 12:09 PM CDT) Pathologist [facility] eGFR 52(L) >=60 mL/min/1. 73 m2 Comment: Interpretive Data Reference Interval Normal >/= 90 mL/min/1.73m2 Mildly decreased* 60 - 89 mL/min/1.73m2 Mildly to moderately decreased 45 - 59 mL/min/1.73m2 Moderately to severely decreased 30 - 44 mL/min/1.73m2 Severely decreased 15 - 29 mL/min/1.73m2 Kidney Failure < 15 mL/min/1.73m2 *Relative to young adult level Estimated glomerular filtration rate is determined by the 2020 CKD-EPI equation recommended by the National Kidney Foundation (A Unifying Approach to GFR Estimation: Recommendations of the NKF-ASK Task Force on Reassessing the Inclusion of Race in Diagnosing Kidney Disease, JASN 2020). The CKD-EPI equation should not be used for patients with unstable renal function and has not been validated in children and those over 70. Current interpretive data was last reviewed 2021. Blood 05/09/2024 12:0 9 PM CDT 05/09/2024 1:02 PM CDT Beverley Torres MD LAB BLOOD ORDERABLES Final Resul t Performing Organization Address City/[facility]/ZIP Co de Phone Number [facility] Department [place] [address] * Hepatitis panel, acute Blood (04/27/2023 11:14 AM CDT) Hep A IgM Nonreactive Nonreactive Hep B core IgM Nonreactive Nonreactive [facility] Hep C Ab Nonreactive Nonreactive [facility] Comment:Antibodies to HCV no t detected. Does NOT exclude the possibility of recent exposure to HCV. Current interpretive data was last revised on 22 HepBsAg Nonreactive Nonreactive [facility] Blood 04/27/2023 11:1 4 AM CDT 04/27/2023 2:07 PM CDT Beverley Torres MD LAB MICROBIOLOGY - GENERAL ORDER TRAY Final Result Performing Organization Address City/[facility]/ZIP Co de Phone Number [facility] Department [place] [address] from Last 3 Months or Most Recently Relevant to Health Maintenance Insurance AETNA MEDICARE AETNA MEDICARE AETNA MEDICARE Care Teams Stores Laborer Relationship Specialty Start Date End Date Shagufta Khan MD PCP - General Family Medicine 02/02/21
--- OUTSIDE RECORDS SUMMARY | 2024-12-09 15:05 | XMS_ITS | Encounter Summary ---
Author Organization [facility] Address [address] [place] [address] Care Team Providers Care Physical Trainer Name Role Phone Elizabeth Wei MD Primary Care Provider [phone] Shagufta Khan MD Primary Care Provider [phone] Reason for Visit * Reason Onset Date Comments MEDICATION REFILL 11/02/2020 Encounter Details Date Type Department Care Team (Late st Contact Info) Description 11/02/2020 Refill [facility] - Nephrology [address] [place] [address], [place] [address] Karthikeyan Elizabeth MD [address] [place] [address] [place] [address] MEDICATION REFILL Social History Tobacco Use Types Packs/Day Years Used Date Smoking Tobacco: Former Cigarettes Q uit: 1976 Smokeless Tobacco: Never Alcohol Use Standard Drinks/Week Comments Yes 12 (1 standard drink = 0.6 oz pu re alcohol) 6 pack week/beer Sex and Gender Information Value Date Recorded Sex Assigned at Male 09/23/2021 1:27 PM LABOR ARBITRATOR HEARING OFFICE Legal Sex Male 1:53 PM CDT Gender Identity Male 06/18/2021 1:43 PM CDT Sexual Orientation Straight 06/18/2021 1: 43 PM CDT documented as of this encounter Functional Status * Is person deaf or have serious hearing difficulty? Answer Date of Assessment Author No 02/27/2019 5:00 PM JEMT Avila Naqvi RN * Is person blind or have serious difficulty seeing? Answer Date of Assessment Author No 02/27/2019 5:00 PM JEMT Avila Naqvi RN * Does person have serious difficulty walking/climbing stairs? Answer Date of Assessment Author No 02/27/2019 5:00 PM JEMT Avila Naqvi RN * Does person have difficulty dressing/bathing? Answer Date of Assessment Author No 02/27/2019 5:00 PM JEMT Avila Naqvi RN * Does person have difficulty doing [...] Office Visit [facility] - Nephrology [address] [place] [address], [place] [address] Karthikeyan Elizabeth MD [address] [place] [address] [place] [address] documented as of this encounter Visit Diagnoses Not on filedocumented in this encounter Care Teams Physical Trainer Relationship Specialty Start Date End Date Elizabeth Wei MD PCP - General Family Medicine 01/22/19 09/25/23 Shagufta Khan MD [address] [place] [address] PCP - General Family Medicine 09/26/23 documented as of this encounter
--- OUTSIDE RECORDS SUMMARY | 2024-12-09 15:05 | XMS_ITS | Encounter Summary ---
Author Organization [facility] Address [address] [place] [address] Phone Care Team Providers Care Vending Machine Servicer Name Role Phone Shagufta Khan MD Primary Care Provider [phone] Encounter Details Date Type Department Care Team (Late st Contact Info) Description 03/06/2023 Orders Only [facility] Scanning, Provider Social History Tobacco Use Types Packs/Day Years Used Date Smoking Tobacco: Former Cigarettes 1 10 964 1973 Smokeless Tobacco: Never Alcohol Use Standard Drinks/Week Comments Yes 0 [...] on file Legal Sex Male 2:28 AM MASSAGE THERAPIST Gender Identity Male 07/28/2020 10:07 AM MASSAGE THERAPIST Sexual Orientation Straight 07/28/2020 10 :07 AM MASSAGE THERAPIST documented as of this encounter Plan of Treatment Not on file documented as of this encounter Procedures Procedure Name Priority Date/Time Associated Diagnosis Comments SCAN - LABS 03/06/2023 documented in this encounter Results * SCAN - LABS (03/06/2023) us Provider Scanning Final Result documented in this encounter Visit Diagnoses Not on filedocumented in this encounter Care Teams Vending Machine Servicer Relationship Specialty Start Date End Date Shagufta Khan MD PCP - General Family Medicine 02/02/21 documented as of this encounter
--- OUTSIDE RECORDS SUMMARY | 2024-12-09 15:05 | XMS_ITS | Clinical Summary ---
Author Organization [facility] Address [address] [place] [address] Care Team Providers Care Grants Officer Name Role Phone Shagufta Khan MD Primary Care Provider [phone] Allergies Active Allergy Reactions Criticality Noted Date [...] Sex Assigned at Male 07/18/2024 10:14 PM BLUEPRINT TRIMMER Legal Sex Male 8:42 AM BLUEPRINT TRIMMER Gender Identity Male 07/18/2024 10:14 PM BLUEPRINT TRIMMER Sexual Orientation Straight 07/18/2024 10 :14 PM BLUEPRINT TRIMMER Last Filed Vital Signs Vital Sign Reading [...] cm (6' 1 ) 10/03/2023 1:43 PM BLUEPRINT TRIMMER Body Mass Index 43.27 10/03/2023 1:43 PM BLUEPRINT TRIMMER Plan of Treatment Health Maintenance Due Date [...] Insurance AETNA OPEN CHOICE PPO Care Teams Grants Officer Relationship Specialty Start Date End Date Shagufta Khan MD [address] [place] [address] PCP - General Family Practice 10/02/23
--- OUTSIDE RECORDS SUMMARY | 2024-12-09 15:05 | XMS_ITS | Continuity of Care Document ---
Author Organization [facility] Address [address] [place] [address] Phone Care Team Providers Care Lead C Developer Name Role Phone Booth OD, Jv Unavailable Unavailable Advance Directives Directive Yes / No Effective Date File Name No Information Encounters Encounter Description Practice Location Reason(s) For Visit Diagnoses Date Provider Providers Copied on Encounter [facility], [id number] [place] [address] [address], [place], [place], [id number], [place] tel:[phone] [facility] No Information 8-200 5 Booth OD Jv. [address] , [address], [place], [address], [place]. tel:[phone] Family History Family Member Type Diagnosis Age At Onset No Information Payers Payer name Insurance type Covered green party ID Authoriza tion(s) No Information Social History [...]
--- OUTSIDE RECORDS SUMMARY | 2024-12-09 15:05 | XMS_ITS | Encounter Summary ---
Author Organization [facility] Health Address [address] [place] [address] Care Team Providers Care Veterinary Poultry Inspector Name Role Phone Elizabeth Wei MD Primary Care Provider [phone] Shagufta Khan MD Primary Care Provider [phone] Encounter Details Date Type Department Care Team (Late st Contact Info) Description 02/25/2019 Lab Requisition [facility] [address] [facility] [place], [facility] [place] [address] Leola Pereyra MD [address] [facility] [facility] [address] [place] [address] Social History Tobacco Use Types Packs/Day Years Used Date Smoking Tobacco: Former Cigarettes Q uit: 1976 Smokeless Tobacco: Never Alcohol Use Standard Drinks/Week Comments Yes 12 (1 standard drink = 0.6 oz pu re alcohol) 6 pack week/beer Sex and Gender Information Value Date Recorded Sex Assigned at Male 09/23/2021 1:27 PM MEMBERSHIP ASSISTANT Legal Sex Male 1:53 PM CDT Gender Identity Male 06/18/2021 1:43 PM CDT Sexual Orientation Straight 06/18/2021 1: 43 PM CDT documented as of this encounter Plan of Treatment Upcoming Encounters Date Type Department Care Team (Late st Contact Info) Description 12/31/2024 1:30 PM CDT Office Visit [facility] - Nephrology [address] [facility] [place], [place] [address] Karthikeyan Elizabeth MD [address] [place] [address] [address] [place] [address] documented as of this encounter Procedures Procedure Name Priority Date/Time Associated Diagnosis Comments DERMATOPATHOLOGY Routine 02/24/2019 12:0 0 AM CDT documented in this encounter Results * DERMATOPATHOLOGY (02/24/2019 12:00 AM CDT) Case Report Dermatopathology Report Case: [id number] Authorizing Provider: Leola Peryera MD Collected: 02/24/2019 12:00 AM Pathologist: Caitie [...] specimen consists of a shave biopsy measuring 98e07s2 mm. Jar 0. 9 3:52 PM CDT [...] characteristic determined by the Dermatopathology Laboratory at [facility], directed by Dr. John Adams. These tests need not be, and therefore are not, approved by the [place] Food and Drug Administration. The tests are used for clinical purposes. Billing Codes Specimen Charges Stain Charges 51640 1 43285 73914 1 1 3:52 PM CDT DERMATOPATHOLOGY LABORATORY [...] AM CDT Leola Pereyra MD LAB - PATHOLOGY/CYTOLOGY OR DERABLES Final Result DERMATOPATHOLOGY LABORATORY [facility] - Department of Dermatology [address] 5th [place] [address], [facility] [phone] documented in this encounter Visit Diagnoses Not on filedocumented in this encounter Care Teams Veterinary Poultry Inspector Relationship Specialty Start Date End Date Elizabeth Wei MD PCP - General Family Medicine 01/22/19 09/25/23 Shagufta Khan MD [address] [place] [address] PCP - General Family Medicine 09/26/23 documented as of this encounter
--- OUTSIDE RECORDS SUMMARY | 2024-12-09 15:06 | XMS_ITS | Clinical Summary ---
Author Organization [facility] Address [address] [place] [address] Care Team Providers Care Investment Manager Name Role Phone Shagufta Khan MD Primary Care Provider [phone] Source Comments [facility],non-owned Affiliates and Associated Physician Practices is amultiple site organization consisting of ambulatory clinics and hospital sitesin [place], [place], [place] and [place]. This disclosure is being madepursuant to the Care Everywhere program and may not contain all information available regarding this patient. Last updated 18.[facility] Allergies Active Allergy Reactions Criticality Noted Date Comments Penicillins Unknown Childhood allergy, unknown reaction. Medications * Be aware that medications may not be up to date on this document. Alwaysverify current medications with the patient. amLODIPine (NORVASC) 10 MG tablet Take 1 (one) tablet by mouth at bedtime 9 Active finasteride (PROSCAR) 5 MG tablet Take 1 (one) tablet by mouth once daily Taking as needed for swelling 9 Active glimepiride (AMARYL) 4 MG tablet Take 1 (one) tablet by mouth daily with breakfast 9 Active metFORMIN ER 24hr (GLUCOPHAGE XR) 500 MG tablet Take 2 (two) tablets by mouth 2 times daily 9 Active pravastatin (PRAVACHOL) 20 MG tablet Take 1 (one) tablet by mouth once daily 9 Active JANUVIA 100 MG tablet Take 1 (one) tablet by mouth once daily 9 Active metoprolol succinate XL 24hr (TOPROL XL) 100 MG tablet Take 1 (one) tablet by mouth once daily Active apixaban (ELIQUIS) 5 MG tablet Take 1 (one) tablet by mouth 2 times daily Active sodium bicarbonate 650 MG tabletIndication s:Stage 3 chronic kidney disease, unspecified whether stage 3a or 3b CKD (HCC) Take 1 (one) tablet by mouth 3 times daily 90 tablet 3 1 Active Additional Information Patient taking differently:650 mg Oral2 TIMES DAILY, Reported on 11/22/2022 furosemide (Lasix) 20 MG tabletIndication s:Stage 3 chronic kidney disease, unspecified whether stage 3a or 3b CKD (HCC) Take 2 (two) tablets by mouth 2 times daily 90 tablet 4 3 Active Additional Information Patient taking differently:40 mg OralDAILY, Takes three times weekly, Reported on 07/02/2024 gabapentin (Neurontin) 300 MG capsule Take 1 (one) capsule by mouth at bedtime 3 Active chlorthalidone (Hygroton) 25 MG tablet Take 1 (one) tablet by mouth once daily 3 Active Jardiance 10 MG tablet Take 1 (one) tablet by mouth once daily 3 Active Entresto 24-26 MG tablet Take 1 (one) tablet by mouth once daily 4 Active pregabalin (Lyrica) 75 MG capsule Take 1 (one) capsule by mouth 2 times daily Active hydrALAZINE (Apresoline) 100 MG tabletIndication s:Crohn's disease of colon with complication (HCC),Primary hypertension Take 0.5 (one-half) tablet by mouth 3 times daily 270 tablet 1 4 Active cloNIDine (Catapres) 0.1 MG tablet TAKE 1 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 12/28/2017 Morbid obesity [...] pain 03/11/2014 Overview (01/22/2019): Overview: Myalgia Immunizations Immunization Administration Dates Next Due INFLUENZA VACCINE, HIGH-DOSE [...] Cigarettes Q uit: 1975 Smokeless Tobacco: Never Tobacco Cessation:Counseling Given: Not Answered Alcohol Use Standard Drinks/Week Comments Yes 12 (1 standard drink = 0.6 oz pu re alcohol) 6 pack week/beer Sex and Gender Information Value Date Recorded Sex Assigned at Male 09/23/2021 1:27 PM FUNERAL DIRECTOR'S ASSISTANT Legal Sex Male 1:53 PM CDT Gender Identity Male 06/18/2021 1:43 PM CDT Sexual Orientation Straight 06/18/2021 1: 43 PM CDT Last Filed Vital Signs Vital Sign Reading Time Taken Comments Blood Pressure 160/80 07/02/2024 1:35 PM FUNERAL DIRECTOR'S ASSISTANT Pulse 62 07/02/2024 1:35 PM FUNERAL DIRECTOR'S ASSISTANT Temperature 36.2 C (97.2 F) 01/30/2024 1:29 PM CDT Respiratory Rate 18 07/02/2024 1:35 PM FUNERAL DIRECTOR'S ASSISTANT Oxygen Saturation 97% 07/02/2024 1:35 PM FUNERAL DIRECTOR'S ASSISTANT Inhaled Oxygen Concentration - - Weight 156.2 kg (344 lb 6.4 oz) 07/02/2024 1:35 PM FUNERAL DIRECTOR'S ASSISTANT Height 185.4 cm (6' 1 ) 07/02/2024 1:35 PM FUNERAL DIRECTOR'S ASSISTANT Body Mass Index 45.44 07/02/2024 1:35 PM FUNERAL DIRECTOR'S ASSISTANT Plan of Treatment Upcoming Encounters Date Type Department Care Team (Late st Contact Info) Description 12/31/2024 1:30 PM CDT Office Visit [facility] - Nephrology [address] [place] [address], [place] [address] Karthikeyan Elizabeth MD [address] [place] [address] [place] [address] Health Maintenance Due Date Last Done Comments [...] Management General On track( 024 1:47 PM FUNERAL DIRECTOR'S ASSISTANT) Kimberly Church, RN Note: Expected end date: [...] 05/09/2024 10:11 AM CDT Performed at: [address] [id number] Radiotelegraphist: Peyman Lilly PhD, Phone: [phone] Karthikeyanabel Farmer MD LAB - URINE CHEM ISTRY ORDERABLES Final Result [facility] INSURANCE BILL [address] [place] [address] * (ABNORMAL) RENAL FUNCTION PANEL (05/08/2024 1:36 [...] - 05/09/2024 8:17 AM CDT Performed at: - [address] [id number] Radiotelegraphist: Peyman Lilly PhD, Phone: [phone] Karthikeyan Farmer MD LAB - CHEMISTRY ORDERABLES Final Result Performing Organization Address City/[facility]/ZIP Co de Phone Number [facility] INSURANCE BILL [address] [place] [address] * (ABNORMAL) HEMOGLOBIN A1C (EXTERNAL RESULT ENTRY) (06/17/2021) [facility] Hemoglobin A1c (EXTERNAL RESULT) 7.3(A) 4.8 - 5.6 % [facility] INSURANCE BILL Blood BLOOD SPECIMEN / Unknown 06/17/2021 Historical Provider LAB - CHEMISTRY ORDERABLE S Final Result Performing Organization Address [facility] Co de Phone Number [facility] INSURANCE BILL [address] [place] [address] from Last 3 Months or Most Recently Relevant to Health Maintenance Insurance AETNA AETNA AETNA MEDICARE [employer] Care Address: [address] [place] [address] Advance Directives * Full Code (Latest Code Status on File) Date Activated Date Inactivated Comments 02/27/2019 3:26 PM 03/01/2019 6:53 PM * Full Code Date Activated Date Inactivated Comments 02/27/2019 6:49 AM 02/27/2019 3:26 PM Care Teams Investment Manager Relationship Specialty Start Date End Date Shagufta Khan MD [address] [place] [address] PCP - General Family Medicine 09/26/23
--- OUTSIDE RECORDS SUMMARY | 2024-12-09 15:06 | XMS_ITS | Encounter Summary ---
Author Organization [facility] Address [address] [facility] [place] [address] Care Team Providers Care Shipping Team Leader Name Role Phone Elizabeth Wei MD Primary Care Provider [phone] Shagufta Khan MD Primary Care Provider [phone] Encounter Details Date Type Department Care Team (Late st Contact Info) Description 12/24/2019 Lab Requisition [facility] [address] [facility], [place] [phone] Arminda Boyd, DO [address] [facility] 3 DEPT [place] [address] Social History Tobacco Use Types Packs/Day Years Used Date Smoking Tobacco: Former Cigarettes Q uit: 1976 Smokeless Tobacco: Never Alcohol Use Standard Drinks/Week Comments Yes 12 (1 standard drink = 0.6 oz pu re alcohol) 6 pack week/beer Sex and Gender Information Value Date Recorded Sex Assigned at Male 09/23/2021 1:27 PM BOAT OPERATOR Legal Sex Male 1:53 PM CDT Gender Identity Male 06/18/2021 1:43 PM CDT Sexual Orientation Straight 06/18/2021 1: 43 PM CDT documented as of this encounter Functional Status * Is person deaf or have serious hearing difficulty? Answer Date of Assessment Author No 02/27/2019 5:00 PM CDT Avila Naqvi RN * Is person blind or have serious difficulty seeing? Answer Date of Assessment Author No 02/27/2019 5:00 PM CDT Avila Naqvi RN * Does person have [...] 02/27/2019 5:00 PM JEMT Avila Naqvi RN documented as of this encounter Mental Status * Does person have difficulty concentrating/remembering/making decisions? Answer Entry Date Author No 02/27/2019 5:00 PM JEMT Avila Naqvi RN documented in this encounter Plan of Treatment Upcoming Encounters Date Type Department Care Team (Late st Contact Info) Description 12/31/2024 1:30 PM CDT Office Visit [facility] - Nephrology [address] [place] [address], [place] [address] Karthikeyan Elizabeth MD [address] [place] [address] [place] [address] documented as of this encounter Procedures Procedure Name Priority Date/Time Associated Diagnosis Comments DERMATOPATHOLOGY Routine 12/23/2019 12:0 0 AM CDT documented in this encounter Results * DERMATOPATHOLOGY (12/23/2019 12:00 AM CDT) Case Report Dermatopathology Report Case: [id number] Authorizing Provider: Arminda Boyd DO Collected: 12/23/2019 12:00 AM Ordering Location: [facility] Lab Received: 12/24/2019 11:36 AM Pathologist: [...] The specimen consists of a shave measuring [id number]. Jar 0. 0 1:14 PM CDT DERMATOPATHOLOGY [...] characteristic determined by the Dermatopathology Laboratory at [facility], directed by Dr. John Adams. These tests need not be, and therefore are not, approved by the [place] Food and Drug Administration. The tests are used for clinical purposes. Billing Codes Specimen Charges Stain Charges 16258 1 0 1:14 PM CDT DERMATOPATHOLOGY LABORATORY Embedded Images 0 1:14 PM CDT DERMATOPATHOLOGY LABORATORY Pathology/Cytolog y TISSUE SPECIMEN FROM SKIN / Unknown 12/23/2019 12/24/2019 11:36 AM CDT us Arminda Boyd DO LAB - PATHOLOGY/CYTOLOGY ORDERABLES Final Result DERMATOPATHOLOGY LABORATORY [facility] - Department of Dermatology [facility] [facility], 5th [place] [address], [facility] [phone] documented in this encounter Visit Diagnoses Not on filedocumented in this encounter Care Teams Shipping Team Leader Relationship Specialty Start Date End Date Elizabeth Wei MD PCP - General Family Medicine 01/22/19 09/25/23 Shagufta Khan MD [address] [place] [place] [id number] PCP - General Family Medicine 09/26/23 documented as of this encounter
--- OUTSIDE RECORDS SUMMARY | 2024-12-09 15:06 | XMS_ITS | Referral Summary ---
Author Organization [facility] [address] Address [address] [place] [address] Care Team Providers Care Calculating Machine Mechanic Name Role Phone Shagufta Khan MD Primary Care Provider [phone] Encounters Date Type Department Care Team Description 12/05/2024 3:25 PM CDT Lab [facility] ([facility]) [address] [place] [address] Neuropathy; B12 nutritional deficiency 12/05/2024 1:00 PM CDT Office Visit [facility] Neuro Muscle [address] [facility] Medicine 6th [place] [address] [place] [address] Yasemin Choudhary MD PhD B12 nutritional deficiency (Primary Dx); Muscle pain; Neuropathy 10/09/2024 11:30 AM FORGE OPERATOR HELPER Office Visit [facility] Surgery [address] [facility] Medicine 6th [place] [address] Yoly Horton MD Bilateral carpal tunnel syndrome (Primary Dx); Guyon syndrome, right; Guyon syndrome, left; Cubital tunnel syndrome on right; Cubital tunnel syndrome on left from Last 3 Months Allergies Active Allergy Reactions Criticality Noted Date [...] 04/26/2021 Assessment & Plan (10/06/2021 9:53 AM FORGE OPERATOR HELPER): With symptoms of exertional dyspnea/exercise intolerance, attempted [...] 09/18/2019 Assessment & Plan (10/06/2021 9:52 AM FORGE OPERATOR HELPER): Hx of diastolic dysfunction, mild leg swelling at baseline (also in setting of BMi 47, HTN) -Continue home telmisartan 80 mg every day, metoprol 150 mg BID, amlodipine 10 qdaily, chlorthalidone 25 qdaily and hydralazine at dc Coronary artery disease invo lving false [place] coronary artery of false pass heart without angina pectoris 12/28/2017 Assessment & Plan (10/06/2021 9:51 AM FORGE OPERATOR HELPER): -Continue home metoprolol/statin/telmisartan Morbid obesity with BMI of 45.0-49.9, adult 06/14 Disease of thyroid gland 01/02/2017 Overview (01/05/2017): Enlarged thyroid Diffuse goiter 01/02/2017 Overview (01/05/2017): Goiter diffuse Body mass index 40+ - severely obese 06/27/2016 Overview (11/17/2016): Morbid obesity with BMI of 45.0-49.9, adult Mixed diabetic hyperlipidemi a associated with type 2 diabetes mellitus ([facility]) 06/27/2016 Overview (11/17/2016): 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 ([facility]) 01/04/2016 Overview (11/17/2016): DM (diabetes mellitus), secondary, with neurologic complications Assessment & Plan (10/06/2021 9:50 AM FORGE OPERATOR HELPER): -Continue home januvia 100 qS, metformin 1G BID, glimepiride at discharge ANTONIO on CPAP 07/06/2015 Overview (11/17/2016): ANTONIO on CPAP Assessment & Plan (10/06/2021 9:51 AM FORGE OPERATOR HELPER): -Use CPAP while sleeping Hypertensive heart disease with congestive heart failure 11/24/2014 Overview (11/17/2016): Congestive heart failure, unspecified Muscle pain 03/11/2014 Overview (11/17/2016): Myalgia Immunizations Immunization Administration Dates Next Due Influenza, Unspecified 04/13/2021 Social History Tobacco Use Types Packs/Day Years Used Date Smoking Tobacco: Former Cigarettes 1 10 1 964 - 1974 Pipe Cigars Smokeless Tobacco: Never Tobacco Cessation:Counseling [...] on file Legal Sex Male 2:28 AM FORGE OPERATOR HELPER Gender Identity Male 07/28/2020 10:07 AM FORGE OPERATOR HELPER Sexual Orientation Straight 07/28/2020 10 :07 AM FORGE OPERATOR HELPER 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 Not on file Not on file Not on file Last Filed Vital Signs Vital Sign Reading Time Taken Comments Blood Pressure 156/92 12/05/2024 12:56 PM CDT Pulse 76 12/05/2024 12:56 PM CDT Temperature 36.3 C (97.4 F) 05/09/2024 11:15 AM CDT Respiratory Rate 23 11/08/2021 8:50 AM CDT Oxygen Saturation 92% 07/15/2024 11:26 AM FORGE OPERATOR HELPER Inhaled Oxygen Concentration - - Weight 146.1 kg (322 lb) 12/05/2024 12:56 PM CDT Height 185.4 cm (6' 1 ) 12/05/2024 12:56 PM CDT Body Mass Index 42.48 12/05/2024 12:56 PM CDT Plan of Treatment Not on file Medical Devices Implanted Type Area Clinical Technician Device Identifier Shelf Expiration Date Model / Serial / Lot Vascade Mvp 6-12fr Venous Closure - [id number] Implanted:Qty: 1 on 10/05/2021 by Luis Tran MD at [facility] Collagen Right: Femoral [employer] 06/27/2023 800-612C -[id number] / / [id number] Description:vein Vascade Mvp 6-12fr Venous Closure - [id number] - [id number] Implanted:Qty: 1 on 10/05/2021 by Luis Tran MD at [facility] Collagen Left: Femoral [employer] 06/27/2023 800-612C -10U / [id number] / [id number] Description:vein Vascade Mvp 6-12fr Venous Closure - [id number] Implanted:Qty: 1 on 10/05/2021 by Luis Tran MD at [facility] Collagen Right: Femoral [employer] 06/27/2023 800-612C -[id number] / / [id number] Description:vein Other - See Comments Other - see comments Knee Description:Bilateral knee r eplacements Other - See Comments Other - see comments Left: Knee Other - See Comments Other - see comments Right: Knee Procedures Procedure Name Priority Date/Time Associated Diagnosis Comments LIPID PANEL Routine 06/30/2024 10:21 AM FORGE OPERATOR HELPER EGFR Routine 05/09/2024 12:09 PM CDT Interstitial pulmonary disease (HCC) High risk medication use HEPATITIS PANEL, ACUTE Routine 04/27/2023 11:14 AM CDT Interstitial pulmonary disease (HCC) from Last 3 Months or Most Recently Relevant to Health Maintenance Results * (ABNORMAL) Lipid panel (06/30/2024 10:21 AM FORGE OPERATOR HELPER) SCRIBED Cholesterol, Total 144 0 - 200 EXTERNAL LAB SCRIBED HDL 45 40 - 100 EXTERNAL LAB SCRIBED LDL 64 0 - 100 EXTERNAL LAB SCRIBED Triglycerides 213(A) 0 - 150 EXTERNAL LAB Blood us Historical Provider LAB BLOOD ORDERABLES Edit ed Result - Final EXTERNAL LAB * (ABNORMAL) eGFR (05/09/2024 12:09 PM CDT) eGFR 52(L) >=60 mL/min/1. 73 m2 Comment: [...] ORDERABLES Final Resul t Performing Organization Address City/[facility] [place] [address] * Hepatitis panel, acute Blood (04/27/2023 11:14 AM CDT) Hep A IgM Nonreactive Nonreactive Hep B core IgM Nonreactive Nonreactive [facility] Hep C Ab Nonreactive Nonreactive [facility] Comment:Antibodies to HCV no t detected. Does NOT exclude the possibility of recent exposure to HCV. Current interpretive data was last revised on 22 HepBsAg Nonreactive Nonreactive [facility] Blood 04/27/2023 11:1 4 AM CDT 04/27/2023 2:07 PM CDT Beverley Torres MD LAB MICROBIOLOGY - GENERAL ORDER TRAY Final Result Performing Organization Address [facility] de Phone Number [facility] [place] [address] from Last 3 Months or Most Recently Relevant to Health Maintenance Insurance [facility] T MEDICARE Care Teams Calculating Machine Mechanic Relationship Specialty Start Date End Date Shagufta Khan MD PCP - General Family Medicine 02/02/21
--- OUTSIDE RECORDS SUMMARY | 2024-12-09 15:06 | XMS_ITS | Encounter Summary ---
Author Organization [facility] Address [address] [facility] [place] [address] Care Team Providers Care Cash Management Specialist Name Role Phone Elizabeth Wei MD Primary Care Provider [phone] Shagufta Khan MD Primary Care Provider [phone] Encounter Details Date Type Department Care Team (Late st Contact Info) Description 08/28/2019 Lab Requisition [facility] [address] [facility], [place] [phone] Arminda Boyd, DO [address] [facility] 3 [place] [address] Social History Tobacco Use Types Packs/Day Years Used Date Smoking Tobacco: Former Cigarettes Q uit: 1976 Smokeless Tobacco: Never Alcohol Use Standard Drinks/Week Comments Yes 12 (1 standard drink = 0.6 oz pu re alcohol) 6 pack week/beer Sex and Gender Information Value Date Recorded Sex Assigned at Male 09/23/2021 1:27 PM LOCKSMITH APPRENTICE Legal Sex Male 1:53 PM CDT Gender [...] Description 12/31/2024 1:30 PM CDT Office Visit [facility] - Nephrology [address] [place] [address], [place] [address] Karthikeyan Elizabeth MD [address] [place] [address] [place] [address] documented as of this encounter Procedures Procedure Name Priority Date/Time Associated Diagnosis Comments DERMATOPATHOLOGY Routine 08/27/2019 12:0 0 AM LOCKSMITH APPRENTICE documented in this encounter Results * DERMATOPATHOLOGY (08/27/2019 12:00 AM LOCKSMITH APPRENTICE) Case Report Dermatopathology Report Case: [id number] Authorizing Provider: Arminda Boyd DO Collected: 08/27/2019 12:00 AM Ordering Location: [facility] Received: 08/28/2019 10:17 AM Pathologist: Caitie Hutchins MD Specimens: A) - Skin, right upper arm B) - Skin, left abdomen 0 1:18 PM LOCKSMITH APPRENTICE DERMATOPATHOLOGY LABORATORY Final Diagnosis Specimen A. SKIN, right upper arm: SOLAR LENTIGO (L81.4) SEBORRHEIC KERATOSIS (L82.1) DERMAL FIBROSIS (L90.5) (see microscopic description) Specimen B. SKIN, left abdomen: LENTIGINOUS MELANOCYTIC NEVUS, COMPOUND TYPE (COMPOUND MELANOCYTIC NEVUS WITH ARCHITECTURAL DISORDER) (D22.5) 0 1:18 PM [facility] DERMATOPATHOLOGY LABORATORY Clinical History A: R/O recurrent melanocytic proliferation. Irreg color and border. B: Nevus R/O atypia. 0 1:18 PM [facility] DERMATOPATHOLOGY LABORATORY Gross Description Specimen A: Received is one formalin filled container labeled with the patient's name and designated right upper arm. The specimen consists of a shave measuring [id number]. Jar 0. Specimen B: Received is one formalin filled container labeled with the patient's name and designated left abdomen. The specimen consists of a shave measuring [id number]. Jar 0. 0 1:18 PM [facility] DERMATOPATHOLOGY LABORATORY Microscopic Description Specimen A. SKIN, [...] or Compound Dysplastic Nevus) 0 1:18 PM [facility] DERMATOPATHOLOGY LABORATORY Disclaimer An external and internal positive and negative controls are appropriate for the histochemical, immunohistochemical and immunofluorescence stain(s) in this case (if any), except where stated explicitly. The performance characteristics of the stain(s) cited in this report were developed and its performance characteristic determined by the Dermatopathology Laboratory at [facility], directed by Dr. John Adams. These tests need not be, and therefore are not, approved by the [place] Food and Drug Administration. The tests are used for clinical purposes. Billing Codes Specimen Charges Stain Charges 16505 08441 1 1 47592 1 0 1:18 PM LOCKSMITH APPRENTICE DERMATOPATHOLOGY LABORATORY Embedded Images 0 1:18 PM LOCKSMITH APPRENTICE DERMATOPATHOLOGY LABORATORY Pathology/Cytology TISSUE SPECIMEN FROM SKIN / Unknown 08/27/2019 08/28/2019 10:17 AM LOCKSMITH APPRENTICE Miscellaneous samples (specimen) TISSUE SPECIMEN FROM SKIN / Unknown 08/27/2019 08/28/2019 10:17 AM LOCKSMITH APPRENTICE us Arminda Boyd DO LAB - PATHOLOGY/CYTOLOGY ORDERABLES Final Result DERMATOPATHOLOGY LABORATORY [facility] - Department of Dermatology [address] [place] [address], 5th Floor Lab [address] [phone] documented in this encounter Visit Diagnoses Not on filedocumented in this encounter Care Teams Cash Management Specialist Relationship Specialty Start Date End Date Elizabeth Wei MD PCP - General Family Medicine 01/22/19 09/25/23 Shagufta Khan MD [address] [place] [address] PCP - General Family Medicine 09/26/23 documented as of this encounter
--- OUTSIDE RECORDS SUMMARY | 2024-12-09 15:06 | XMS_ITS | Encounter Summary ---
Author Organization [facility] Address [address] [facility] [place] [address] Care Team Providers Care Tennis Racket Repairer Name Role Phone Elizabeth Wei MD Primary Care Provider [phone] Shagufta Khan MD Primary Care Provider [phone] Encounter Details Date Type Department Care Team (Late st Contact Info) Description 06/05/2019 Lab Requisition [facility] [address] [facility], [place] [phone] Arminda Boyd, DO [address] [facility] 3 [place] [address] Social History Tobacco Use Types Packs/Day Years Used Date Smoking Tobacco: Former Cigarettes Q uit: 1976 Smokeless Tobacco: Never Alcohol Use Standard Drinks/Week Comments Yes 12 (1 standard drink = 0.6 oz pu re alcohol) 6 pack week/beer Sex and Gender Information Value Date Recorded Sex Assigned at Male 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 Legal Sex Male 1:53 PM CDT [...] 12/31/2024 1:30 PM CDT Office Visit [facility] - Nephrology [address] [place] [address], [place] [phone] Karthikeyan Elizabeth MD [address] [place] [address] [place] [address] documented as of this encounter Procedures Procedure Name Priority Date/Time Associated Diagnosis Comments DERMATOPATHOLOGY Routine 06/04/2019 12:0 0 AM CDT documented in this encounter Results * DERMATOPATHOLOGY (06/04/2019 12:00 AM CDT) Case Report Dermatopathology Report Case: [id number] Authorizing Provider: Arminda Boyd DO Collected: 06/04/2019 12:00 AM Ordering Location: [facility] Lab Received: 06/05/2019 05:22 AM Pathologist: Erika Adams MD Specimen: Skin, right FA 2:28 PM CDT DERMATOPATHOLOGY LABORATORY Final Diagnosis Specimen A. SKIN, right FA: LICHEN PLANUS-LIKE KERATOSIS (BENIGN LICHENOID KERATOSIS) (L82.1) 2:28 PM CDT DERMATOPATHOLOGY LABORATORY Clinical History R/O NMSC. 2:28 PM CDT DERMATOPATHOLOGY LABORATORY Gross Description Specimen A: Received is one formalin filled container labeled with the patient's name and designated right FA. The specimen consists of a shave measuring [id number]. Jar 0. 2:28 PM CDT DERMATOPATHOLOGY LABORATORY Microscopic Description Specimen A. SKIN, right FA: The epidermis is mildly acanthotic. There is a lichenoid infiltrate with vacuolar changes of basilar keratinocytes and scattered necrotic keratinocytes. 2:28 PM CDT DERMATOPATHOLOGY LABORATORY Disclaimer An external and internal positive and negative controls are appropriate for the histochemical, immunohistochemical and immunofluorescence stain(s) in this case (if any), except where stated explicitly. The performance characteristics of the stain(s) cited in this report were developed and its performance characteristic determined by the Dermatopathology Laboratory at [facility], directed by Dr. John Adams. These tests need not be, and therefore are not, approved by the [place] Food and Drug Administration. The tests are used for clinical purposes. Billing Codes Specimen Charges Stain Charges 29597 1 2:28 PM CDT DERMATOPATHOLOGY LABORATORY Embedded Images 2:28 PM CDT DERMATOPATHOLOGY LABORATORY Pathology/Cytolog y TISSUE SPECIMEN FROM SKIN / Unknown 06/04/2019 06/05/2019 5:22 AM CDT us Arminda Boyd DO LAB - PATHOLOGY/CYTOLOGY ORDERABLES Final Result DERMATOPATHOLOGY LABORATORY [facility] - Department of Dermatology [address] [place] [address], [address] [place] [address], [facility] [phone] documented in this encounter Visit Diagnoses Not on filedocumented in this encounter Care Teams Tennis Racket Repairer Relationship Specialty Start Date End Date Elizabeth Wei MD PCP - General Family Medicine 01/22/19 09/25/23 Shagufta Khan MD [address] [place] [address] PCP - General Family Medicine 09/26/23 documented as of this encounter
--- NOTE | 2024-12-09 16:47 | WPDPFTINT ---
PFT Procedure Performed PFT Procedure Performed Spirometry with Pre/Post Bronchodilator Plethysmography (Lung Vol) Diffusing Cap (DLCO) Flow Vol Loop PFT Interpretation This is a pulmonary function test with pre and post-bronchodilator spirometry, plethysmography and diffusing capacity. The test was performed and results interpreted in accordance with the 2019 and 2005 ATS/ERS Task Force guidelines respectively using the Global Lung Function Initiative-2012 reference equations. Patient demonstrated good effort and cooperation. Reproducibility criteria were met. The quality of the pre bronchodilator spirometry maneuver was Grade A and post bronchodilator spirometry maneuver was Grade A. Findings: Spirometry: The contour the inspiratory expiratory flow tracing are normal. The pre bronchodilator FVC is 2.87 L, 67% predicted. The pre bronchodilator FEV1 is 2.06 L, 65% predicted. The pre bronchodilator FEV1: FVC ratio 72%. The post bronchodilator FVC is 2.92 L, representing a 1% increase. The post bronchodilator FEV1 is 2.14 L, representing a 4% increase. The post bronchodilator FEV1: FVC ratio 74%. Plethysmography: Total lung capacity is 5.19 L, 70% predicted. The functional residual capacity is 2.98 L, 74% predicted. The residual volume is 2.18 L, 80% predicted. Diffusing capacity: Diffusing capacity unadjusted for hemoglobin and carboxyhemoglobin is 15.4, 61% predicted. The diffusing capacity adjusted for alveolar volume is 3.36, 93% predicted. In comparison to previous pulmonary function testing on 12/11/2023, the post bronchodilator FVC is unchanged from 3.39 L to 2.92 L. The post bronchodilator FEV1 is unchanged from 2.54 L to 2.14 L. The total lung capacity is unchanged from 5.13 L to 5.19 L. The functional residual capacity is unchanged from 2.58 L to 2.98 L. The residual volume is unchanged from 1.99 L to 2.18 L. The diffusing capacity unadjusted for hemoglobin and carboxyhemoglobin is decreased from 1 19.7 to 15.4. The diffusing capacity adjusted for alveolar volume is unchanged from 3.88 to 3.36 Impression: There is a moderate restrictive ventilatory abnormality. The spirometry is normal without evidence of an obstructive abnormality. There is no significant improvement after inhaling a single dose of albuterol. The diffusing capacity unadjusted for hemoglobin and carboxyhemoglobin is mildly decreased and normalizes when adjusted for alveolar volume. In comparison to previous pulmonary function testing on 12/11/2023, there has been a greater than anticipated time dependent decrease in the diffusing capacity unadjusted for hemoglobin and carboxyhemoglobin with no significant change in the FVC, FEV1, total lung capacity, functional residual capacity, residual volume or diffusing capacity adjusted for alveolar volume. Clinical correlation is recommended.
== END 2024-12-09 13:49 | disposition home or self-care (01) ==
PROVIDERS: PCP Family Medicine; Visit Provider Internal Medicine Pulmonary Disease
DX: R06.00 Dyspnea, unspecified (principal); J84.9 Interstitial pulmonary disease, unspecified; R94.2 Abnormal results of pulmonary function studies
CPT/HCPCS: 94060; 94726; 94729

== ENCOUNTER 2025-02-17 16:11 | Emergency (ER) | payer MEDICARE, SELFPAY ==
[2025-02-17] VITALS (7 sets, daily range): BP systolic 108–156; BP diastolic 75–98; PULSE 82–102; RESP 15–25; TEMP 36.6–36.8; O2SAT 95–98
--- NOTE | ~2025-02-17 | CT_ITS ---
EXAMINATION: CT brain wo con DATE: 02/17/2025 16:33 INDICATION: Head injury TECHNIQUE: Computed tomography (CT) of the head was performed without intravenous contrast. Sagittal and coronal reconstructions were performed. The mA was adjusted according to patient size. Iterative reconstruction technique was employed. The dose-length product was 756.67 mGy-cm. COMPARISON: None FINDINGS: No fracture. There is a likely chronic right subdural hematoma which measures up to 6 mm in thickness overlying the left frontal and parietal lobes with slightly greater than the adjacent CSF attenuatio n. No higher attenuation acute intracranial hemorrhage. No acute infarction or abnormal extra axial f luid collection. Ventricles are normal and symmetric. No mass/mass effect. Changes of bilateral intra ocular lens replacement. The orbits and mastoid air cells are normal. Mild mucosal thickening in the right maxillary sinus. IMPRESSION: 1. Small chronic appearing right frontal parietal subdural hematoma with density nearly indiscernible from CSF. No fracture or acute intracranial process. Reviewed, dictated and finalized at location A. IMPRESSION: 1. Small chronic appearing right frontal parietal subdural hematoma with densit y nearly indiscernible from CSF. No fracture or acute intracranial process.
--- NOTE | 2025-02-17 16:25 | ED_ITS ---
HPI - General Adult General Chief complaint: Wound/Laceration Stated complaint: fall, head injury Time Seen by Provider: 02/17/25 16:17 History of Present Illness HPI narrative: 79-year-old male presents emergency department for evaluation for a head injury. Patient does have neuropathy at baseline and patient states that he slipped while getting out of the vehicle fell back and did strike his head. Patient is on Eliquis. Patient denies any loss consciousness. Patient does have a laceration to his posterior scalp. Patient denies any other pain or injury. Related Data Home Medications ?Medication ?Instructions ?Recorded ?Confirmed ?Last Taken ?Type amlodipine 10 mg tablet 10 mg PO DAILY 12/19/19 01/14/25 06/07/23 History finasteride 5 mg tablet 5 mg PO DAILY 12/19/19 01/14/25 06/07/23 History apixaban 5 mg tablet (Eliquis) 5 mg PO BID 05/20/21 01/14/25 06/04/23 History sodium bicarbonate 650 mg tablet 650 mg PO TID 12/19/21 01/14/25 06/06/23 History furosemide 40 mg tablet 40 mg PO DAILY 11/28/22 01/14/25 06/05/23 History chlorthalidone 25 mg tablet 25 mg PO DAILY 01/18/23 01/14/25 06/07/23 History empagliflozin 10 mg tablet 10 mg PO DAILY 01/18/23 01/14/25 06/07/23 History (Jardiance) metoprolol succinate 100 mg 100 mg PO DAILY 07/10/23 01/14/25 Unknown History tablet,extended release 24 hr sacubitril 24 mg-valsartan 26 mg 1 tablet PO BID 07/10/23 01/14/25 Unknown History tablet (Entresto) clonidine HCl 0.1 mg-0.2 mg 0.1 mg PO BID 07/14/24 01/14/25 Unknown History tablet,extended release dose pack hydralazine 100 mg tablet 50 mg PO TID 07/14/24 01/14/25 Unknown History Allergies Allergy/AdvReac Type Severity Reaction Status Date / Time diclofenac Allergy Unknown Unknown Verified 02/17/25 16:19 Penicillins Allergy Unknown Unknown Verified 02/17/25 16:19 Review of Systems 2 Review of Systems: All systems reviewed & are unremarkable except as noted in HPI and below PMFSH Past Medical History Medical History Atrial fibrillation 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, bilateral Multinodular goiter Morbid obesity with BMI of 45.0-49.9, adult Coronary artery disease ANTONIO on CPAP Primary hypertension Chronic diastolic CHF (congestive heart failure) Non-ischemic cardiomyopathy Dyspnea on exertion Morbid obesity Cataracts, bilateral CKD (chronic kidney disease) stage 3, GFR 30-59 ml/min Chronic joint pain Type 2 diabetes mellitus Surgical History Surgical History S/P ablation of atrial fibrillation History of thyroidectomy (~02/2019) Hx of cataract extraction (~08/2020) History of skin surgery (~03/2019) 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 Family History Family History Father Diabetes mellitus Mother Diabetes mellitus Sibling Diabetes mellitus Social History Social History Social History: former smoker Smoking packs per day: 1 Smoking cigarettes per day: 20.0 Years smoked: 10 Smoking pack-years: 10.00 Smoking status: Former smoker Tobacco type: cigarettes Second hand tobacco smoke exposure: No Smoking end date: 08/13/70 Alcohol intake: current Drinks per week: 12 Substance use: never Substance use type: does not use Lack of Transportation: No Lack of Food: Never True Current Housing: I Have Housing Concerned About Future Housing: No Difficulty Paying Gas/Electric Bills: No Difficulty Paying for Meds: No Currently Unemployed: No Education: High School Diploma/GED Difficulty w/ Childcare or Family Care: No Living arrangements: alone Occupation/Education: retired Gender identity (if verbalized by the patient): Male Spiritual care concerns: No Agree to blood products: Yes Exam 2 Narrative: APPEARANCE: Well appearing, no pain, no distress, well-nourished. HEAD: normocephalic, scalp laceration. EYES: PERRLA/EOMI, conjunctivae clear. NOSE: Normal no drainage EARS:TMS clear with good light reflex. THROAT: Pharynx clear, no exudate. NECK: Supple. No adenopathy, no masses. RESPIRATORY: Airway patent, respirations nonlabored. Clear to auscultation bilaterally, no rales, rhonchi, wheezing. CARDIOVASCULAR: Regular rate and rhythm without murmurs rubs or gallops. ABDOMINAL: Soft, nontender, nondistended, normal bowel sounds MUSCULOSKELETAL: Chronic lower extremity edema NEURO: Alert. Cranial nerves II through XII intact. Grossly intact SKIN: Posterior scalp laceration Course Vital Signs Vital signs: Vital Signs Temperature 97.8 F 02/17/25 16:06 Pulse Rate 88 02/17/25 16:06 Respiratory Rate 15 02/17/25 16:06 Blood Pressure 108/83 02/17/25 16:06 Pulse Oximetry 97 02/17/25 16:06 Oxygen Delivery Room Air 02/17/25 16:06 Temperature 98.3 F 02/17/25 21:20 Pulse Rate 93 02/17/25 21:20 Respiratory Rate 22 H 02/17/25 21:20 Blood Pressure 156/98 H 02/17/25 21:20 Pulse Oximetry 98 02/17/25 21:20 Oxygen Delivery Room Air 02/17/25 16:06 Procedures Laceration Laceration 1: Date: 02/17/25 Time: 17:09 Site: scalp Size (cm): 4 Description: linear Depth: simple, single layer Local Anesthetic: lidocaine 1% and with epi Amount of anesthesia used (mL): 3 Pre-repair: wound explored, irrigated and irrigated extensively ====== Skin Level ====== Skin layer closed with: mo Number of sutures: 9 Technique: simple, interrupted ====== Subcutaneous Layer ====== ====== Muscle Layer ====== ====== Tendon Layer ====== Medical Decision Making [facility] Narrative Medical decision making narrative: 79-year-old male presenting to the emergency department for evaluation of a laceration to his posterior scalp. Patient states his fall was secondary to his chronic neuropathy. Patient states he does have history of multiple falls and has struck his head previously. Patient's CT showed a chronic subdural with no acute intracranial abnormality. Laceration was repaired as described above. Attempted to ambulate patient and he was unable to ambulate. Patient was treated with a L of IV fluids and did feel improved. Patient was afebrile with no leukocytosis and hemoglobin of 14.5. INR 1.4. Patient did have a creatinine of 1.85 prior to rehydration. This was mildly elevated compared to his baseline. Patient did have a lactic acid of 2.5 prior to rehydration. UA was negative for infection. Patient did feel significantly improved rehydration he was able to ambulate it is baseline and was discharged home Differential Diagnosis Differential Diagnosis: Subdural hematoma, subarachnoid hemorrhage, skull fracture, scalp laceration Vital Signs Vital Signs: Vital Signs Temperature 97.8 F 02/17/25 16:06 Pulse Rate 88 02/17/25 16:06 Respiratory Rate 15 02/17/25 16:06 Blood Pressure 108/83 02/17/25 16:06 Pulse Oximetry 97 02/17/25 16:06 Oxygen Delivery Room Air 02/17/25 16:06 Temperature 98.3 F 02/17/25 21:20 Pulse Rate 93 02/17/25 21:20 Respiratory Rate 22 H 02/17/25 21:20 Blood Pressure 156/98 H 02/17/25 21:20 Pulse Oximetry 98 02/17/25 21:20 Oxygen Delivery Room Air 02/17/25 16:06 Lab Data 02/17/25 18:43 02/17/25 18:43 Labs: Lab Results 02/17/25 02/17/25 Range/Units 18:43 18:57 WBC 7.3 (4.5-10.0) K/mm3 RBC 4.53 L (4.6-6.20) M/mm3 Hgb 14.5 (14.0-18.0) g/dL Hct 46.1 (42.0-52.0) % MCV 101.8 H (80-100) fl MCH 32.0 (26-34) pg MCHC 31.5 L (32-36) g/dl RDW 15.5 H (11.5-14.5) % Plt Count 231 (150-375) k/mm3 MPV 10.3 (7.4-10.4) fl Immature Gran % (Auto) 0.4 (0-0.5) % Neut % (Auto) 82.5 H (45.5-73.1) % Lymph % (Auto) 7.5 L (18.3-44.2) % [place] % (Auto) 8.8 H (2.6-8.5) % Eos % (Auto) 0.5 (0-4.4) % Baso % (Auto) 0.3 (0.2-1.2) % Lymph # (Auto) 0.55 L (0.9-3.2) K/mm3 [place] # (Auto) 0.6 (0.1-0.6) K/mm3 Eos # (Auto) 0.0 (0-0.3) K/mm3 Baso # (Auto) 0.0 (0.0-0.1) K/mm3 Abs Immat Gran (auto) 0.03 (0.00-0.031) K/mm3 Absolute Neuts (auto) 6.0 (1.3-6.7) K/mm3 Absolute Nucleated RBC 0.000 (0.0-0.012) K/mm3 Nucleated RBC % 0.0 (0.0-0.2) % PT 17.4 H (11.1-14.7) Seconds INR 1.4 APTT 37.8 H (22.3-36.8) Seconds Sodium 139 (137-145) mmol/L Potassium 5.1 H (3.4-5.0) mmol/L Chloride 106 (98-107) mmol/L Carbon Dioxide 20 L (22-30) mmol/L Anion Gap 13 H (4-12) mmol/L BUN 35 H D (9-20) mg/dL Creatinine 1.85 H (0.7-1.3) mg/dL Estim Creat Clear Calc 46 ml/min Estimated GFR 36 L (59 - ) Glucose 96 (65-110) mg/dL Lactic Acid 2.5 H (0.7-2.0) mmol/L Calcium 9.3 (8.4-10.2) mg/dL Total Bilirubin 1.3 (0.2-1.3) mg/dL AST 36 (17-59) U/L ALT 38 (6-50) U/L Alkaline Phosphatase 78 (38-126) U/L Total Protein 6.9 (6.3-8.2) g/dL Albumin 4.0 (3.5-5.1) g/dL Urine Color Yellow (Yellow) Urine Appearance Clear (Clear) Urine pH 5.0 (5.0-9.0) Ur Specific [place] 1.019 (1.001-1.035) Urine Protein 2+ H (Negative) mg/dL Urine Glucose (UA) 2+ H (Negative) mg/dL Urine Ketones Trace H (Negative) mg/dL Ur Blood (Man) Negative (Negative) Urine Nitrate Negative (Negative) Urine Bilirubin Negative (Negative) Urine Urobilinogen 1.0 (<2.0) mg/dL Add Ur Microanalysis Reviewed Leukocyte Esterase Rfl Negative (Negative) WU/UL Urine RBC 0-2 (0-2) /hpf Urine WBC 0-5 (0-3) /hpf Ur Squamous Epith Cells None seen (Few) /hpf Urine Bacteria None seen /hpf Urine Casts 3-5 Imaging Data Radiologist's impression: Impressions Head CT 02/17/25 16:35 IMPRESSION: 1. Small chronic appearing right frontal parietal subdural hematoma with density nearly indiscernible from CSF. No fracture or acute intracranial process. Discharge Plan Discharge Clinical Impression: Laceration of scalp, Chronic subdural hematoma, Dehydration Patient Disposition: Home Condition: Stable Instructions: Antibiotic Form, Head Injury (DC), Staple Care (ED) Additional Instructions: Wound care as directed. Carver will need to be removed in 7-10 days. Have close follow-up with your primary care physician. If you have any worsening symptoms then please call or return to the emergency department. Patient Language: Indonesian Prescriptions: No Action amlodipine 10 mg tablet 10 mg PO DAILY finasteride 5 mg tablet 5 mg PO DAILY metoprolol succinate 100 mg tablet extended release 24 hr 100 mg PO DAILY Entresto 24-26 mg tablet 1 tablet PO BID sodium bicarbonate 650 mg tablet 650 mg PO TID furosemide 40 mg tablet 40 mg PO DAILY Jardiance 10 mg tablet 10 mg PO DAILY chlorthalidone 25 mg tablet 25 mg PO DAILY hydralazine 100 mg tablet 50 mg PO TID clonidine HCl 0.1-0.2 mg tablet extended rel,dose pack 0.1 mg PO BID Eliquis 5 mg tablet 5 mg PO BID glimepiride 4 mg tablet 4 mg PO DAILY Qty: 90 3RF Januvia 100 mg tablet 100 mg PO DAILY Qty: 90 3RF metformin 500 mg tablet extended release 24 hr 1,000 mg PO BID Qty: 360 3RF gabapentin 300 mg capsule 600 mg PO QHS Qty: 180 2RF pravastatin 20 mg tablet 20 mg PO DAILY Qty: 90 3RF Follow-up/Referrals: Shagufta Khan MD [Primary Care Provider] -
--- NOTE | 2025-02-17 17:17 | PC.NURSE ---
per EDP, attempted to ambulate patient. patient was only able to stand at side of bed momentarily before sitting back on bed. EDP [place] aware.
--- OUTSIDE RECORDS SUMMARY | 2025-02-17 17:18 | XMS_ITS | Encounter Summary ---
Author Organization [facility] Address [address] [facility] [place] [address] Care Team Providers Care Fine Arts Model Name Role Phone Elizabeth Wei MD Primary Care Provider [phone] Shagufta Khan MD Primary Care Provider [phone] Reason for Visit * Reason Onset Date Comments MEDICATION REFILL 04/19/2019 Encounter Details Date Type Department Care Team (Late st Contact Info) Description 04/19/2019 Refill [facility] [address] [place] [address] Rolando Long MD [address] [facility] [address] [place] [address] MEDICATION REFILL Social History Tobacco Use Types Packs/Day Years Used Date Smoking Tobacco: Former Cigarettes Q uit: 1976 Smokeless Tobacco: Never Alcohol Use Standard Drinks/Week Comments Yes 12 (1 standard drink = 0.6 oz pu re alcohol) 6 pack week/beer Sex and Gender Information Value Date Recorded Sex Assigned at Male 12/30/2024 2:28 PM CDT Legal Sex Male 2:11 PM CDT Gender Identity Male 12/30/2024 2:28 PM CDT Sexual Orientation Straight 12/30/2024 2: 28 PM CDT documented as of this encounter [...] Care Team (Late st Contact Info) Description 06/10/2025 2:00 PM CDT Office Visit [facility] [address] [facility], [place] [address] Karthikeyan Elizabeth MD [address] [place] [address] [place] [address] documented as of this encounter Visit Diagnoses Not on filedocumented in this encounter Care Teams Fine Arts Model Relationship Specialty Start Date End Date Elizabeth Wei MD PCP - General Family Medicine 01/22/19 09/25/23 Shagufta Khan MD [address] [place] [address] PCP - General Family Medicine 09/26/23 documented as of this encounter
--- OUTSIDE RECORDS SUMMARY | 2025-02-17 17:18 | XMS_ITS | Encounter Summary ---
Author Organization [facility] Address [address] [facility] [place] [address] Care Team Providers Care Cleaner And Trimmer Name Role Phone Elizabeth Wei MD Primary Care Provider [phone] Shagufta Khan MD Primary Care Provider [phone] Encounter Details Date Type Department Care Team (Late st Contact Info) Description 02/25/2019 Lab Requisition [facility] [address] [facility], [facility] [place] [address] Leola Pereyra MD [address] [facility] [address] [place] [address] Social History Tobacco Use Types Packs/Day Years [...] Description 06/10/2025 2:00 PM CDT Office Visit [facility] - Nephrology [address] [facility], [place] [phone] Karthikeyan Elizabeth MD [address] [place] [address] [address] [place] [address] documented as of this encounter Procedures Procedure Name Priority Date/Time Associated Diagnosis Comments DERMATOPATHOLOGY Routine 02/24/2019 12:0 0 AM CDT documented in this encounter Results * DERMATOPATHOLOGY (02/24/2019 12:00 AM CDT) Case Report Dermatopathology Report Case: [id number] Authorizing Provider: Leola Pereyra MD Collected: 02/24/2019 [...] report) 9 3:52 PM CDT DERMATOPATHOLOGY LABORATORY at 1552 CDT Clinical History Nevus vs MM 9 3:52 PM CDT DERMATOPATHOLOGY LABORATORY Gross Description Specimen A: Received is one formalin filled container labeled with the patient's name and designated mid lower back. The specimen consists of a shave biopsy measuring [id number] mm. Jar 0. 9 3:52 PM CDT [...] by the Dermatopathology Laboratory at [facility], directed by Dr. John Adams. These tests need not be, and therefore are not, approved by the [place] Food and Drug Administration. The tests are used for clinical purposes. Billing Codes Specimen Charges Stain Charges 31380 1 [id number] 1 1 3:52 PM CDT DERMATOPATHOLOGY LABORATORY [...] PATHOLOGY/CYTOLOGY OR DERABLES Final Result DERMATOPATHOLOGY LABORATORY [facility] - Department of Dermatology [address] [facility] 5th [place] [address], [facility] [phone] documented in this encounter Visit Diagnoses Not on filedocumented in this encounter Care Teams Cleaner And Trimmer Relationship Specialty Start Date End Date Elizabeth Wei MD PCP - General Family Medicine 01/22/19 09/25/23 Shagufta Khan MD [address] [place] [address] PCP - General Family Medicine 09/26/23 documented as of this encounter
--- OUTSIDE RECORDS SUMMARY | 2025-02-17 17:18 | XMS_ITS | Clinical Summary ---
Author Organization [facility] Address [address] [place] [address] Care Team Providers Care Dioramist Name Role Phone Shagufta Khan MD Primary Care Provider [phone] Allergies Active Allergy Reactions Criticality Noted Date [...] Active Active Problems No known active problems Family History Medical History Relation Name Comments [...] Sex Assigned at Male 07/18/2024 10:14 PM CONTINUING EDUCATION INSTRUCTOR Legal Sex Male 8:42 AM CONTINUING EDUCATION INSTRUCTOR Gender Identity Male 07/18/2024 10:14 PM CONTINUING EDUCATION INSTRUCTOR Sexual Orientation Straight 07/18/2024 10 :14 PM CONTINUING EDUCATION INSTRUCTOR Last Filed Vital Signs Vital Sign Reading [...] 2:24 PM CDT Height 185.4 cm (6' 1) 10/03/2023 1:43 PM CONTINUING EDUCATION INSTRUCTOR Body Mass Index 43.27 10/03/2023 1:43 PM CONTINUING EDUCATION INSTRUCTOR Plan of Treatment Health Maintenance Due Date [...] 6 MONTHS 12/15/2021 06/17/2021 INFLUENZA VACCINE (#1) 2025 04/28/2020, 2018 Insurance [employer] OPEN CHOICE PPO Care Teams Dioramist Relationship Specialty Start Date End Date Shagufta Khan MD [address] [place] [id number] PCP - General Family Practice 10/02/23
--- OUTSIDE RECORDS SUMMARY | 2025-02-17 17:18 | XMS_ITS | Clinical Summary ---
Author Organization [facility] [address] Address [address] [place] [address] Care Team Providers Care Pack Room Operator Name Role Phone Shagufta Khan MD Primary Care Provider [phone] Allergies Active Allergy Reactions Criticality Noted Date Comments Penicillins Unknown Low Childhood Medications metFORMIN (GLUCOPHAGE) 500 mg tablet take 2 Tablet (1000MG) by oral route 2 times every day with morning and evening meals 0 2 Active hydrALAZINE (APRESOLINE) 100 mg tablet take 1 tablet (100MG) by oral route 2 times every day with food 0 2 Active SITagliptin (JANUVIA) 100 mg tablet take 1 tablet (100MG) by oral route every day 0 2 Active finasteride (PROSCAR) 5 mg tablet take 1 tablet (5MG) by oral route every day 0 2 Active glimepiride (AMARYL) 4 mg tablet take 1 tablet by oral route every day 0 0 7 Active pravastatin (PRAVACHOL) 20 mg tabletIndicatio ns:hyperlipidem ia Take 1 tablet (20 mg total) by mouth nightly Active sodium bicarbonate 650 mg tabletIndicatio ns:renal tubular acidosis Take 1 tablet (650 mg total) by mouth 3 (three) times a day Active furosemide (LASIX) 40 mg tabletIndicatio ns:Edema,hypert ension Take 1 tablet (40 mg total) by mouth daily 1 Active acetaminophen (TYLENOL) 325 mg tablet Take 2 tablets (650 mg total) by mouth every 6 (six) hours as needed for pain Active gabapentin (NEURONTIN) 300 mg capsule 2 Active cloNIDine (CATAPRES) 0.1 mg tablet Take 1 tablet (0.1 mg total) by mouth 2 (two) times a day 4 Active sacubitriL-vals nai (ENTRESTO) 24-26 mg tabletIndicatio ns:chronic heart failure Take 1 tablet by mouth 2 (two) times a day 180 tablet 3 4 Active empagliflozin (JARDIANCE) 10 mg tablet Take 1 tablet (10 mg total) by mouth daily 90 tablet 3 4 Active chlorthalidone (HYGROTON) 25 mg tablet Take 1 tablet (25 mg total) by mouth daily 90 tablet 3 4 Active Eliquis 5 mg tablet TAKE 1 TABLET TWICE A DAY 180 tablet 3 5 Active amLODIPine (NORVASC) 10 mg tablet TAKE 1 TABLET DAILY 90 tablet 3 5 Active metoprolol XL (TOPROL-XL) 100 mg 24 hr tablet TAKE 1 TABLET DAILY 90 tablet 3 5 Active Eliquis 5 mg tablet TAKE 1 TABLET TWICE A DAY 180 tablet 3 4 025 Discontinued amLODIPine (NORVASC) 10 mg tablet TAKE 1 TABLET DAILY 90 tablet 3 4 025 Discontinued metoprolol XL (TOPROL-XL) 100 mg 24 hr tablet TAKE 1 TABLET DAILY 90 tablet 3 4 025 Discontinued Active Problems Problem Noted Date Diagnosed Date Chronic combined systolic and diastolic heart fa ilure 07/15/2024 Nonischemic cardiomyopathy 06/22/2023 Pulmonary HTN 09/22/2022 QT prolongation 04/18/2022 S/P ablation of atrial fibrillation 12/15/2021 Chronic anticoagulation 09/23/2021 Atrial fibrillation 04/26/2021 Assessment & Plan (10/06/2021 9:53 AM GUIDE DOMESTIC TOUR): With symptoms of exertional dyspnea/exercise intolerance, attempted [...] heart failure with p reserved ejection fraction ([facility]/HCC) 09/18/2019 Assessment & Plan (10/06/2021 9:52 AM GUIDE DOMESTIC TOUR): Hx of diastolic dysfunction, mild leg swelling at baseline (also in setting of BMi 47, HTN) -Continue home telmisartan 80 mg every day, metoprol 150 mg BID, amlodipine 10 qdaily, chlorthalidone 25 qdaily and hydralazine at dc Coronary artery disease invo lving inupiat coronary artery of inupiat heart without angina pectoris 12/28/2017 Assessment & Plan (10/06/2021 9:51 AM GUIDE DOMESTIC TOUR): -Continue home metoprolol/statin/telmisartan Morbid obesity with BMI of 45.0-49.9, adult 06/14 Disease of thyroid gland 01/02/2017 Overview (01/05/2017): Enlarged thyroid Diffuse goiter 01/02/2017 Overview (01/05/2017): Goiter diffuse Body mass index 40+ - severely obese 06/27/2016 Overview (11/17/2016): Morbid obesity with BMI of 45.0-49.9, adult Mixed diabetic hyperlipidemi a associated with type 2 diabetes mellitus ([facility]) 06/27/2016 Overview (11/17/2016): 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 ([facility]) 01/04/2016 Overview (11/17/2016): DM (diabetes mellitus), secondary, with neurologic complications Assessment & Plan (10/06/2021 9:50 AM GUIDE DOMESTIC TOUR): -Continue home januvia 100 qS, metformin 1G BID, glimepiride at discharge ANTONIO on CPAP 07/06/2015 Overview (11/17/2016): ANTONIO on CPAP Assessment & Plan (10/06/2021 9:51 AM GUIDE DOMESTIC TOUR): -Use CPAP while sleeping Hypertensive heart disease with congestive heart failure 11/24/2014 Overview (11/17/2016): Congestive heart failure, unspecified Muscle pain 03/11/2014 Overview (11/17/2016): Myalgia Encounters Date Type Department Care Team Description 02/10/2025 Telephone [facility] Cardiology [address] [address] [address] [place] [address] Tone Cummins MD 02/05/2025 11:30 AM CDT Office Visit [facility] [address] [facility] Medicine [facility] [place] [address] [place] [address] Yasemin Choudhary MD PhD 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 12/11/2024 Results Follow-Up [facility] [address] [facility] Medicine [facility] [place] [address] [place] [id number] Yasemin Choudhary MD PhD Vitamin B6 12/10/2024 11:15 AM CDT Office Visit [facility] Cardiology at [address] [place] [address] Tone Cummins MD Chronic combined systolic and diastolic heart failure (HCC) (Primary Dx); Hypertension associated with diabetes (HCC); Pulmonary HTN (HCC); Nonischemic cardiomyopathy (HCC); Coronary artery disease involving inupiat coronary artery of inupiat heart without angina pectoris; ANTONIO on CPAP 12/05/2024 3:25 PM CDT Lab [facility] [address] [place] [address] Neuropathy; B12 nutritional deficiency 12/05/2024 1:00 PM CDT Office Visit [facility] [address] [facility] 6th [place] [address] [place] [address] Yasemin Choudhary MD PhD B12 nutritional deficiency (Primary Dx); Muscle pain; Neuropathy; 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); Sensory ataxia; Bilateral carpal tunnel syndrome from Last 3 Months Immunizations Immunization Administration [...] DJD (degenerative joint disease) of knee Cataract 2020 Heart disease 2012 Family History Medical History Relation Name Comments Cancer Father Dad Lung cancer Father Dad Cancer, lung; C ause of : Cancer, [...] 2 Naz Relation Name Status Comments Father Dad (Age 6) Mother Kelsi (Age 79) Sister 1 (Age 55) Sister 2 Naz Social History Tobacco Use Types Packs/Day Years Used Date Smoking Tobacco: Former Cigarettes 1 10 0 08/13/1963 - 1973 Pipe Cigars Smokeless Tobacco: Never Tobacco [...] on file Legal Sex Male 2:28 AM GUIDE DOMESTIC TOUR Gender Identity Male 07/28/2020 10:07 AM GUIDE DOMESTIC TOUR Sexual Orientation Straight 07/28/2020 10 :07 AM GUIDE DOMESTIC TOUR 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 [employer] Not on file Not on file Not on file Obstetrics History Last Filed Vital Signs Vital Sign Reading Time Taken Comments Blood Pressure 129/86 02/05/2025 11:21 AM CDT Pulse 98 02/05/2025 11:21 AM CDT Temperature 36.3 C (97.4 F) 05/09/2024 11:15 AM CDT Respiratory Rate 23 11/08/2021 8:50 AM CDT Oxygen Saturation 91% 12/10/2024 11:38 AM CDT Inhaled Oxygen Concentration - - Weight 149.7 kg (330 lb) 02/05/2025 11:21 AM CDT Height 185.4 cm (6' 1) 02/05/2025 11:21 AM CDT Body Mass Index 43.54 02/05/2025 11:21 AM CDT Plan of Treatment Health Maintenance Due [...] season) 2024 06/09/2021, 11/01/2020, 09/30/2020 Influenza Vaccine (#1) 2025 , 03/31/2021, 04/28/2020, Additional history exists eGFR 05/09/2025 05/09/2024, 06/13, 04/27/2023, Additional history exists Lipid Panel 06/30/2025 06/30/2024, 02/11, 03/27/2023, Additional history exists Hepatitis C Screening Completed 04/27/2023 Medical Devices Implanted Type Area [employer] Consultant Device Identifier Shelf Expiration Date Model / Serial / Lot Vascade Mvp 6-12fr Venous Closure - [id number] Implanted:Qty: 1 on 10/05/2021 by Luis Tran MD at [facility] Collagen Right: Femoral [employer] 06/27/2023 800-612C -[id number] / / [id number] Description:vein Vascade Mvp 6-12fr Venous Closure - [id number] - [id number] Implanted:Qty: 1 on 10/05/2021 by Luis Tran MD at [facility] Collagen Left: Femoral [employer] 06/27/2023 800-612C -[id number] / [id number] / [id number] Description:vein Vascade Mvp 6-12fr Venous Closure - [id number] Implanted:Qty: 1 on 10/05/2021 by Luis Tran MD at [facility] Collagen Right: Femoral [employer] 06/27/2023 800-612C -[id number] / / [id number] Description:vein Other - See Comments Other - see comments Knee Description:Bilateral knee r eplacements Other - See Comments Other - see comments Left: Knee Other - See Comments Other - see comments Right: Knee Procedures Procedure Name Priority Date/Time Associated Diagnosis Comments VITAMIN B6 Routine 12/05/2024 2:11 PM CDT Neuropathy B12 nutritional deficiency LIPID PANEL Routine 06/30/2024 10:21 AM GUIDE DOMESTIC TOUR EGFR Routine 05/09/2024 12:09 PM CDT Interstitial pulmonary disease (HCC) High risk medication use HEPATITIS PANEL, ACUTE Routine 04/27/2023 11:14 AM CDT Interstitial pulmonary disease (HCC) from Last 3 Months or Most Recently Relevant to Health Maintenance Results * Vitamin B6 (12/05/2024 2:11 PM CDT) Pyridoxal phosphate (Vit B6) 9 5 - 50 mcg/L [facility] Comment: ADDITIONAL INFORMATION This test was developed and its performance characteristics determined by [facility] in a manner consistent with CLIA requirements. This test has not been cleared or approved by the U.S. Food and Drug Administration. Test Performed by: [facility] - [address] [address] Parachute Cushion Installer: Mateus Hernandez Ph.D.; CLIA# [id number] Blood 12/05/2024 2:11 PM CDT 12/05/2024 3:26 PM CDT Yasemin Choudhary MD PhD LAB BLOOD ORDERABLES Final Result [facility] Department [place] [address] [facility] * (ABNORMAL) Lipid panel (06/30/2024 10:21 AM GUIDE DOMESTIC TOUR) SCRIBED Cholesterol, Total 144 0 - 200 EXTERNAL LAB SCRIBED HDL 45 40 - 100 EXTERNAL LAB SCRIBED LDL 64 0 - 100 EXTERNAL LAB SCRIBED Triglycerides 213(A) 0 - 150 EXTERNAL LAB Blood us Historical Provider LAB BLOOD ORDERABLES Edit ed Result - Final Performing Organization Address [facility] Co de Phone Number EXTERNAL LAB * (ABNORMAL) eGFR (05/09/2024 12:09 [...] 9 PM CDT 05/09/2024 1:02 PM CDT us Beverley Torres MD LAB BLOOD ORDERABLES Final Resul t [facility] [place] [address] * Hepatitis panel, acute Blood (04/27/2023 11:14 AM CDT) Hep A IgM Nonreactive Nonreactive Hep B core IgM Nonreactive Nonreactive [facility] Hep C Ab Nonreactive Nonreactive [facility] Comment:Antibodies to HCV no t detected. Does NOT exclude the possibility of recent exposure to HCV. Current interpretive data was last revised on 22 HepBsAg Nonreactive Nonreactive [facility] Blood 04/27/2023 11:1 4 AM CDT 04/27/2023 2:07 PM CDT Beverley Torres MD LAB MICROBIOLOGY - GENERAL ORDER TRAY Final Result Performing Organization Address City/State/[facility] Co de Phone Number [facility] Department [place] [address] from Last 3 Months or Most Recently Relevant to Health Maintenance Insurance [facility] MEDICARE [facility] MEDICARE [facility] MEDICARE Care Teams Pack Room Operator Relationship Specialty Start Date End Date Shagufta Khan MD PCP - General Family Medicine 02/02/21
--- OUTSIDE RECORDS SUMMARY | 2025-02-17 17:18 | XMS_ITS | Clinical Summary ---
Author Organization [facility] Address [address] [place] [address] Care Team Providers Care Form Layer Name Role Phone Shagufta Khan MD Primary Care Provider [phone] Source Comments [facility],non-owned Affiliates and Associated Physician Practices is amultiple site organization consisting of ambulatory clinics and hospital sitesin [place], [place], [place] and [place]. This disclosure is being madepursuant to the Care Everywhere program and may not contain all information available regarding this patient. Last updated 18.[facility] Allergies Active Allergy Reactions Criticality Noted Date Comments Penicillins Unknown Childhood allergy, unknown reaction. Medications * Be aware that medications may not be up to date on this document. Alwaysverify current medications with the patient. amLODIPine (NORVASC) 10 MG tablet Take 1 (one) tablet by mouth at bedtime 11/07/19 19 Active finasteride (PROSCAR) 5 MG tablet Take 1 (one) tablet by mouth once daily Taking as needed for swelling 11/07/19 19 Active glimepiride (AMARYL) 4 MG tablet Take 1 (one) tablet by mouth daily with breakfast 11/07/19 19 Active metFORMIN ER 24hr (GLUCOPHAGE XR) 500 MG tablet Take 2 (two) tablets by mouth 2 times daily 11/07/19 19 Active pravastatin (PRAVACHOL) 20 MG tablet Take 1 (one) tablet by mouth once daily 11/07/19 19 Active JANUVIA 100 MG tablet Take 1 (one) tablet by mouth once daily 11/07/19 19 Active metoprolol succinate XL 24hr (TOPROL XL) 100 MG tablet Take 1 (one) tablet by mouth once daily Active apixaban (ELIQUIS) 5 MG tablet Take 1 (one) tablet by mouth 2 times daily Active sodium bicarbonate 650 MG tabletIndicatio ns:Stage 3 chronic kidney disease, unspecified whether stage 3a or 3b CKD (HCC) Take 1 (one) tablet by mouth 3 times daily 90 tablet 3 07/06/20 21 Active Additional Information Patient taking differently:650 mg OralONCE, Reported on 12/31/2024 gabapentin (Neurontin) 300 MG capsule Take 1 (one) capsule by mouth at bedtime 04/21/20 23 Active chlorthalidone (Hygroton) 25 MG tablet Take 1 (one) tablet by mouth once daily 07/30/20 23 Active Jardiance 10 MG tablet Take 1 (one) tablet by mouth once daily 07/13/20 23 Active Entresto 24-26 MG tablet Take 1 (one) tablet by mouth once daily 09/11/19 24 Active hydrALAZINE (Apresoline) 100 MG tabletIndicatio ns:Crohn's disease of colon with complication (HCC),Primary hypertension Take 0.5 (one-half) tablet by mouth 3 times daily 270 tablet 1 01/30/20 24 Active cloNIDine (Catapres) 0.1 MG tablet TAKE 1 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 180 tablet 1 02/10/20 25 Active furosemide (Lasix) 20 MG tabletIndicatio ns:Stage 3 chronic kidney disease, unspecified whether stage 3a or 3b CKD (HCC) Take 2 (two) tablets by mouth once daily 180 tablet 3 02/10/20 25 Active furosemide (Lasix) 20 MG tabletIndicatio ns:Stage 3 chronic kidney disease, unspecified whether stage 3a or 3b CKD (HCC) Take 2 (two) tablets by mouth 2 times daily 90 tablet 4 11/23/19 23 2024 Discontinued(R eorder) cloNIDine (Catapres) 0.1 MG tablet TAKE 1 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 - Nephrology [address] [place] [address] Karthikeyan Elizabeth MD Refill Request 12/31/2024 1:30 PM CDT Office Visit [facility] - Nephrology [address] [place] [phone] Karthikeyan Elizabeth MD Stage 3 chronic kidney disease, unspecified whether stage 3a or 3b CKD (HCC) (Primary Dx) 12/31/2024 Travel 12/22/2024 Orders Only [facility] - Nephrology [address] [place] [phone] Karthikeyan Elizabeth MD from Last 3 Months Immunizations Immunization Administration Dates Next Due INFLUENZA [...] Orientation Straight 12/30/2024 2: 28 PM CDT Last Filed Vital Signs Vital Sign Reading Time Taken Comments Blood Pressure 137/79 12/31/2024 1:47 PM CDT Pulse 56 12/31/2024 1:47 PM CDT Temperature 36.6 C (97.8 F) 12/31/2024 1:47 PM CDT Respiratory Rate 18 07/02/2024 1:35 PM DATA SECURITY ADMINISTRATOR Oxygen Saturation 97% 12/31/2024 1:47 PM CDT Inhaled Oxygen Concentration - - Weight 153.3 kg (338 lb) 12/31/2024 1:47 PM CDT Height 185.4 cm (6' 1) 07/02/2024 1:35 PM DATA SECURITY ADMINISTRATOR Body Mass Index 44.59 07/02/2024 1:35 PM DATA SECURITY ADMINISTRATOR Plan of Treatment Upcoming Encounters Date Type Department Care Team (Late st Contact Info) Description 06/10/2025 2:00 PM CDT Office Visit [facility] - Nephrology [address] [place] [address], [place] [address] Karthikeyan Elizabeth MD [facility] [place] [address] Health Maintenance Due Date Last [...] DIABETES-HGB A1C 12/15/2021 06/17/2021 COVID-19 VACCINE ( - season) 2024 DEPRESSION SCREENING 08/13/2024 MEDICARE AWV CALENDAR YEAR 2024 INFLUENZA VACCINE (#1) 2025 2, 04/13/2021, 03/31/2021, Additional history exists DIABETES - URINE PROTEIN SCREENING 12/22/2025 12/22/2024, 05/08/2024, 09/04/2023, Additional history exists DIABETES-SERUM CREATININE 12/22/20252024, 05/08/2024, 01/21/2024, Additional history exists HEPATITIS C SCREENING Completed [...] Patient-Stated? Author Medication Management General On track( 025 1:47 PM CDT) Kimberly Church RN Note: Expected end date: 11/16/2021 Interventions: Medication to be taken as prescribed. Pt to inform physician regarding any changes in medications. Pt to make sure request refills at least 1 week prior before last dose. Procedures Procedure Name Priority Date/Time Associated Diagnosis Comments MICROALB/CREAT RATIO URINE RANDOM PANEL Routine 12/22/2024 1:54 PM CDT RENAL FUNCTION PANEL Routine 12/22/2024 1:54 PM CDT URINALYSIS REFLEX TO MICROSCOPIC NO CULTURE Routine 12/22/2024 1:54 PM CDT CBC W AUTO DIFFERENTIAL Routine 12/22/2024 1:54 PM CDT HEMOGLOBIN A1C (EXTERNAL RESULT ENTRY) Routine 06/17/2021 from Last 3 Months or Most Recently Relevant to Health Maintenance Results * (ABNORMAL) MICROALB/CREAT RATIO URINE RANDOM PANEL (12/22/2024 1:54 PM CDT) Creatinine Urine 56.2 Not Estab. mg/dL [facility] INSURANCE BILL Microalbumin Urine 357.8 Not Estab. ug/mL [facility] INSURANCE BILL Microalbumin/Crea tinine Ratio 637(H) 0 - 29 mg/g creat [facility] INSURANCE BILL Comment: Normal: 0 - 29 Moderately increased: 30 - 300 Severely increased: >300 12/22/2024 1:54 PM CDT 12/22/2024 Narrative [facility] INSURANCE BILL - 12/23/2024 1:09 PM CDT Performed at: [address] [place] [id number] Rn Procedure: Peyman Lilly PhD, Phone: [phone] Karthikeyan Farmer MD LAB - URINE CHEM ISTRY ORDERABLES Final Result [facility] INSURANCE BILL [address] [place] [address] * (ABNORMAL) URINALYSIS REFLEX TO MICROSCOPIC NO CULTURE (12/22/2024 1:54 PM CDT) [facility] Specific [place] UA 1.018 1.005 - 1.030 [facility] INSURANCE BILL pH UA 6.0 5.0 - 7.5 [facility] INSURANCE BILL Color UA Yellow Yellow [facility] INSURANCE BILL Appearance Clear Clear [facility] INSURANCE BILL Leukocyte UA Negative Negative [facility] INSURANCE BILL Protein UA 2+(A) Negative/Tra ce [facility] INSURANCE BILL Glucose UA 2+(A) Negative [facility] INSURANCE BILL Ketone UA Negative Negative [facility] INSURANCE BILL Occult Blood Urine Negative Negative [facility] INSURANCE BILL Bilirubin UA Negative Negative [facility] INSURANCE BILL Urobilinogen 0.2 0.2 - 1.0 mg/dL [facility] INSURANCE BILL Nitrite UA Negative Negative [facility] INSURANCE BILL Microscopic Examination Urine See below: [facility] INSURANCE BILL Comment: Microscopic was indicated and was performed. Performed at: [address] [place] [id number] Rn Procedure: Peyman Lilly PhD, Phone: [phone] WBC UA None seen 0 - 5 /hpf [facility] INSURANCE BILL RBC UA None seen 0 - 2 /hpf [facility] INSURANCE BILL Epithelial Cells (non renal) None seen 0 - 10 /hpf [facility] INSURANCE BILL Casts ua None seen None seen /lpf [facility] INSURANCE BILL Bacteria UA None seen None seen/Few [facility] INSURANCE BILL 12/22/2024 1:54 PM CDT 12/22/2024 Narrative [facility] INSURANCE BILL - 12/23/2024 8:11 AM CDT Performed at: [facility] [id number] [place], [place] [id number] Rn Procedure: Peyman Lilly PhD, Phone: [phone] Karthikeyan Farmer MD LAB - URINALYSIS ORDERABLES Final Result [facility] INSURANCE BILL [address] [place] [address] * (ABNORMAL) CBC WITH DIFFERENTIAL (12/22/2024 1:54 PM CDT) WBC 6.2 3.4 - 10.8 x10E3/uL [facility] INSURANCE BILL RBC 5.04 4.14 - 5.80 x10E6/uL [facility] INSURANCE BILL Hemoglobin 16.0 13.0 - 17.7 g/dL [facility] INSURANCE BILL Hematocrit 50.4 37.5 - 51.0 % [facility] INSURANCE BILL MCV 100(H) 79 - 97 fL [facility] INSURANCE BILL MCH 31.7 26.6 - 33.0 pg [facility] INSURANCE BILL MCHC 31.7 31.5 - 35.7 g/dL [facility] INSURANCE BILL RDW 13.9 11.6 - 15.4 % [facility] INSURANCE BILL Platelet Count 180 150 - 450 x10E3/uL [facility] INSURANCE BILL Granulocytes % 75 Not Estab. % [facility] INSURANCE BILL Lymphocytes % 12 Not Estab. % [facility]URANCE BILL Monocytes % 10 Not Estab. % [facility] INSURANCE BILL Eosinophils % 1 Not Estab. % [facility] INSURANCE BILL Basophils % 1 Not Estab. % [facility] INSURANCE BILL Granulocytes Absolute 4.7 1.4 - 7.0 x10E3/uL [facility] INSURANCE BILL Lymphocytes Absolute 0.7 0.7 - 3.1 x10E3/uL [facility] INSURANCE BILL Monocytes Absolute 0.6 0.1 - 0.9 x10E3/uL [facility] INSURANCE BILL Eosinophils Absolute 0.1 0.0 - 0.4 x10E3/uL [facility] INSURANCE BILL Basophils Absolute 0.0 0.0 - 0.2 x10E3/uL [facility] INSURANCE BILL Immature Granulocytes 1 Not Estab. % [facility] INSURANCE BILL Immature Granulocytes Absolute 0.0 0.0 - 0.1 x10E3/uL [facility] INSURANCE BILL 12/22/2024 1:54 PM CDT 12/22/2024 Narrative [facility] INSURANCE BILL - 12/23/2024 7:09 AM CDT Performed at: [address] [id number] Rn Procedure: Peyman Lilly PhD, Phone: [phone] Karthikeyan Farmer MD LAB - HEMATOLOGY ORDERABLES Final Result [facility] INSURANCE BILL [address] [place] [address] * (ABNORMAL) RENAL FUNCTION PANEL (12/22/2024 1:54 PM CDT) [facility] Glucose 156(H) 70 - 99 mg/dL [facility] INSURANCE BILL BUN 29(H) 8 - 27 mg/dL [facility] INSURANCE BILL Creatinine 1.57(H) 0.76 - 1.27 mg/dL [facility] INSURANCE BILL eGFR by CKD-EPI 45(L) >59 mL/min/1.7 3 [facility] INSURANCE BILL BUN/Creatinine Ratio 18 10 - 24 [facility] INSURANCE BILL Sodium 142 134 - 144 mmol/L [facility] INSURANCE BILL Potassium 5.2 3.5 - 5.2 mmol/L [facility] INSURANCE BILL Chloride 103 96 - 106 mmol/L [facility] INSURANCE BILL CO2 18(L) 20 - 29 mmol/L [facility] INSURANCE BILL Calcium 9.2 8.6 - 10.2 mg/dL [facility] INSURANCE BILL Phosphorus 4.0 2.8 - 4.1 mg/dL [facility] INSURANCE BILL Albumin 4.3 3.8 - 4.8 g/dL [facility] INSURANCE BILL 12/22/2024 1:54 PM CDT 12/22/2024 Narrative [facility] INSURANCE BILL - 12/23/2024 8:11 AM CDT Performed at: [address] [id number] Rn Procedure: Peyman Lilly PhD, Phone: [phone] Karthikeyan Farmer MD LAB - CHEMISTRY ORDERABLES Final Result [facility] INSURANCE BILL [address] [place] [address] * (ABNORMAL) HEMOGLOBIN A1C (EXTERNAL RESULT ENTRY) (06/17/2021) Hemoglobin A1c (EXTERNAL RESULT) 7.3(A) 4.8 - 5.6 % [facility] INSURANCE BILL Blood BLOOD SPECIMEN / Unknown 06/17/2021 Historical Provider LAB - CHEMISTRY ORDERABLE S Final Result [facility] INSURANCE BILL [address] [place] [address] from Last 3 Months or Most Recently Relevant to Health Maintenance Insurance [employer] AET[employer] AETNA MEDICARE ADV Advance Directives * Full Code (Latest Code Status on File) Date Activated Date Inactivated Comments 02/27/2019 3:26 PM 03/01/2019 6:53 PM * Full Code Date Activated Date Inactivated Comments 02/27/2019 6:49 AM 02/27/2019 3:26 PM Care Teams Form Layer Relationship Specialty Start Date End Date Shagufta hKan MD [address] [place] [address] PCP - General Family Medicine 09/26/23
--- OUTSIDE RECORDS SUMMARY | 2025-02-17 17:18 | XMS_ITS | Encounter Summary ---
Author Organization [facility] Address [address] [place] [address] Phone Care Team Providers Care Scowman Name Role Phone Shagufta Khan MD Primary Care Provider [phone] Encounter Details Date Type Department Care Team [...] on file Legal Sex Male 2:28 AM USED CAR SALES MANAGER Gender Identity Male 07/28/2020 10:07 AM USED CAR SALES MANAGER Sexual Orientation Straight 07/28/2020 10 :07 AM USED CAR SALES MANAGER documented as of this encounter Plan of Treatment Not on file documented as of this encounter Procedures Procedure Name Priority Date/Time Associated Diagnosis Comments SCAN - LABS 03/06/2023 documented in this encounter Results * SCAN - LABS (03/06/2023) us Provider Scanning Final Result documented in this encounter Visit Diagnoses Not on filedocumented in this encounter Care Teams Scowman Relationship Specialty Start Date End Date Shagufta Khan MD PCP - General Family Medicine 02/02/21 documented as of this encounter
--- OUTSIDE RECORDS SUMMARY | 2025-02-17 17:18 | XMS_ITS | Referral Summary ---
Author Organization [facility] [address] Address [address] [place] [address] Care Team Providers Care Dietetics Professor Name Role Phone Shagufta Khan MD Primary Care Provider [phone] Encounters Date Type Department Care Team Description 02/10/2025 Telephone [facility] Cardiology [address] [place] [address] Tone Cummins MD 02/05/2025 11:30 AM CDT Office Visit [facility] [address] 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 [address]th [place] [address] [place] [address] Artem Benavides RN 01/15/2025 Telephone [facility] [address] [facility] [address]th [place] [address] [place] [address] for Prev Genetics Neuro TTR, FREE. 12/11/2024 Results Follow-Up [facility] [address] [facility] [address]th [place] [address] [place] [address] Yasemin Choudhary MD PhD Vitamin B6 12/10/2024 11:15 AM CDT Office Visit [facility] Medical Group Cardiology at [address] [place] [address] Tone Cummins MD Chronic combined systolic and diastolic heart failure (HCC) (Primary Dx); Hypertension associated with diabetes (HCC); Pulmonary HTN (HCC); Nonischemic cardiomyopathy (HCC); Coronary artery disease involving [place] coronary artery of [place] heart without angina pectoris; ANTONIO on CPAP 12/05/2024 3:25 PM CDT Lab [facility] Advanced Medicine ([facility]) [address] [place] [address] Neuropathy; B12 nutritional deficiency 12/05/2024 1:00 PM CDT Office Visit [facility] [address] [facility] 6th [place] [address] [place] [phone] Yasemin Choudhary MD PhD B12 nutritional deficiency (Primary Dx); Muscle pain; Neuropathy; 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); Sensory ataxia; Bilateral carpal tunnel syndrome from Last 3 Months Allergies Active Allergy [...] 04/26/2021 Assessment & Plan (10/06/2021 9:53 AM VETERINARY ANATOMIST): With symptoms of exertional dyspnea/exercise intolerance, attempted [...] heart failure with p reserved ejection fraction ([facility]/HCC) 09/18/2019 Assessment & Plan (10/06/2021 9:52 AM VETERINARY ANATOMIST): Hx of diastolic dysfunction, mild leg swelling at baseline (also in setting of BMi 47, HTN) -Continue home telmisartan 80 mg every day, metoprol 150 mg BID, amlodipine 10 qdaily, chlorthalidone 25 qdaily and hydralazine at dc Coronary artery disease invo lving [place] coronary artery of [place] heart without angina pectoris 12/28/2017 Assessment & Plan (10/06/2021 9:51 AM VETERINARY ANATOMIST): -Continue home metoprolol/statin/telmisartan Morbid obesity with BMI of 45.0-49.9, adult 06/14 Disease of thyroid gland 01/02/2017 Overview (01/05/2017): Enlarged thyroid Diffuse goiter 01/02/2017 Overview (01/05/2017): Goiter diffuse Body mass index 40+ - severely obese 06/27/2016 Overview (11/17/2016): Morbid obesity with BMI of 45.0-49.9, adult Mixed diabetic hyperlipidemi a associated with type 2 diabetes mellitus ([facility]/HCC) 06/27/2016 Overview (11/17/2016): 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 ([facility]/HCC) 01/04/2016 Overview (11/17/2016): DM (diabetes mellitus), secondary, with neurologic complications Assessment & Plan (10/06/2021 9:50 AM VETERINARY ANATOMIST): -Continue home januvia 100 qS, metformin 1G BID, glimepiride at discharge ANTONIO on CPAP 07/06/2015 Overview (11/17/2016): ANTONIO on CPAP Assessment & Plan (10/06/2021 9:51 AM VETERINARY ANATOMIST): -Use CPAP while sleeping Hypertensive heart disease [...] on file Legal Sex Male 2:28 AM VETERINARY ANATOMIST Gender Identity Male 07/28/2020 10:07 AM VETERINARY ANATOMIST Sexual Orientation Straight 07/28/2020 10 :07 AM VETERINARY ANATOMIST 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 [employer] Not on file Not on file Not [...] 02/05/2025 11:21 AM CDT Plan of Treatment Not on file Medical Devices Implanted Type Area Crm Architect Device Identifier Shelf Expiration Date Model / Serial / Lot Vascade Mvp 6-12fr Venous Closure - [id number] Implanted:Qty: 1 on 10/05/2021 by Luis Tran MD at [facility] Collagen Right: Femoral [employer] 06/27/2023 800-612C -[id number] / / [id number] Description:vein Vascade Mvp 6-12fr Venous Closure - [id number] - [id number] Implanted:Qty: 1 on 10/05/2021 by Luis Tran MD at [facility] Collagen Left: Femoral [employer] 06/27/2023 800-612C -10U / [id number] / [id number] Description:vein Vascade Mvp 6-12fr Venous Closure - [id number] Implanted:Qty: 1 on 10/05/2021 by Luis Tran MD at [facility] Collagen Right: Femoral [employer] 06/27/2023 800-612C -[id number] / / [id number] Description:vein Other - See Comments Other - see comments Knee Description:Bilateral knee r eplacements Other - See Comments Other - see comments Left: Knee Other - See Comments Other - see comments Right: Knee Procedures Procedure Name Priority Date/Time Associated Diagnosis Comments VITAMIN B6 Routine 12/05/2024 2:11 PM CDT Neuropathy B12 nutritional deficiency LIPID PANEL Routine 06/30/2024 10:21 AM VETERINARY ANATOMIST EGFR Routine 05/09/2024 12:09 PM CDT Interstitial pulmonary disease (HCC) High risk medication use HEPATITIS PANEL, ACUTE Routine 04/27/2023 11:14 AM CDT Interstitial pulmonary disease (HCC) from Last 3 Months or Most Recently Relevant to Health Maintenance Results * Vitamin B6 (12/05/2024 2:11 PM CDT) Pathologist [facility] Pyridoxal phosphate (Vit B6) 9 5 - 50 mcg/L [facility] Comment: ADDITIONAL INFORMATION This test was developed and its performance characteristics determined by [facility] in a manner consistent with CLIA requirements. This test has not been cleared or approved by the U.S. Food and Drug Administration. Test Performed by: [facility] [address] [place] [address] Bond Underwriter: Mateus Hernandez Ph.D.; CLIA# [id number] Blood 12/05/2024 2:11 PM CDT 12/05/2024 3:26 PM CDT Yasemin Choudhary MD PhD LAB BLOOD ORDERABLES Final Result [facility] [place] [address] [facility] * (ABNORMAL) Lipid panel (06/30/2024 10:21 AM VETERINARY ANATOMIST) SCRIBED Cholesterol, Total 144 0 - 200 EXTERNAL LAB SCRIBED HDL 45 40 - 100 EXTERNAL LAB SCRIBED LDL 64 0 - 100 EXTERNAL LAB SCRIBED Triglycerides 213(A) 0 - 150 EXTERNAL LAB Blood Historical Provider LAB BLOOD ORDERABLES Edit ed [...] MD LAB BLOOD ORDERABLES Final Resul t [facility] Department [place] [address] * Hepatitis panel, acute Blood (04/27/2023 11:14 AM CDT) Hep A IgM Nonreactive Nonreactive Hep B core IgM Nonreactive Nonreactive [facility] Hep C Ab Nonreactive Nonreactive [facility] Comment:Antibodies to HCV no t detected. Does NOT exclude the possibility of recent exposure to HCV. Current interpretive data was last revised on 22 HepBsAg Nonreactive Nonreactive [facility] Blood 04/27/2023 11:1 4 AM CDT 04/27/2023 2:07 PM CDT Beverley Torres MD LAB MICROBIOLOGY - GENERAL ORDER TRAY Final Result [facility] Department [place] [address] from Last 3 Months or Most Recently Relevant to Health Maintenance Insurance [facility] MEDICARE [facility] MEDICARE [facility] MEDICARE Care Teams Dietetics Professor Relationship Specialty Start Date End Date Shagufta Khan MD PCP - General Family Medicine 02/02/21
--- OUTSIDE RECORDS SUMMARY | 2025-02-17 17:18 | XMS_ITS | Encounter Summary ---
Author Organization [facility] Health Address [address] [place] [address] Care Team Providers Care Lead Blender Name Role Phone Elizabeth Wei MD Primary Care Provider [phone] Shagufta Khan MD Primary Care Provider [phone] Encounter Details Date Type Department Care Team (Late st Contact Info) Description 06/05/2019 Lab Requisition [facility] [address] [facility], [place] [phone] Arminda Boyd, [address] [facility] 3 [place] [address] Social History Tobacco Use Types Packs/Day Years [...] Description 06/10/2025 2:00 PM CDT Office Visit [facility] - Nephrology [address] [place] [address], [place] [phone] Karthikeyan Elizabeth MD [address] [place] [address] [place] [address] documented as of this encounter Procedures Procedure Name Priority Date/Time Associated Diagnosis Comments DERMATOPATHOLOGY Routine 06/04/2019 12:0 0 AM CDT documented in this encounter Results * DERMATOPATHOLOGY (06/04/2019 12:00 AM CDT) Case Report Dermatopathology Report Case: [id number] Authorizing Provider: Arminda Boyd DO Collected: 06/04/2019 12:00 AM Ordering Location: [facility] Lab Received: 06/05/2019 05:22 AM Pathologist: Erika Adams MD Specimen: Skin, right FA 2:28 PM CDT DERMATOPATHOLOGY LABORATORY Final Diagnosis Specimen A. SKIN, right FA: LICHEN PLANUS-LIKE KERATOSIS (BENIGN LICHENOID KERATOSIS) (L82.1) 2:28 PM CDT DERMATOPATHOLOGY LABORATORY at 1428 CDT Clinical History R/O NMSC. 2:28 PM CDT DERMATOPATHOLOGY LABORATORY Gross Description Specimen A: Received is one formalin filled container labeled with the patient's name and designated right FA. The specimen consists of a shave measuring [id number]. Jar 0. 2:28 PM CDT DERMATOPATHOLOGY LABORATORY [...] characteristic determined by the Dermatopathology Laboratory at [facility], directed by Dr. John Adams. These tests need not be, and therefore are not, approved by the [place] Food and Drug Administration. The tests are used for clinical purposes. Billing Codes Specimen Charges Stain Charges 29468 1 2:28 PM CDT DERMATOPATHOLOGY LABORATORY Embedded Images 2:28 PM CDT DERMATOPATHOLOGY LABORATORY Pathology/Cytolog y TISSUE SPECIMEN FROM SKIN / Unknown 06/04/2019 06/05/2019 5:22 AM CDT us Arminda Boyd DO LAB - PATHOLOGY/CYTOLOGY ORDERABLES Final Result DERMATOPATHOLOGY LABORATORY [facility] - Department of Dermatology [facility] [facility], [address]th [place] [address], [facility] [phone] documented in this encounter Visit Diagnoses Not on filedocumented in this encounter Care Teams Lead Blender Relationship Specialty Start Date End Date Elizabeth Wei MD PCP - General Family Medicine 01/22/19 09/25/23 Shagufta Khan MD [address] [place] [address] PCP - General Family Medicine 09/26/23 documented as of this encounter
--- OUTSIDE RECORDS SUMMARY | 2025-02-17 17:18 | XMS_ITS | Continuity of Care Document ---
Author Organization [facility] Address [address] [place] [address] Phone Care Team Providers Care Art Psychotherapist Name Role Phone Booth OD, Jv Unavailable Unavailable Advance Directives Directive Yes / No Effective Date File Name No Information Encounters Encounter Description Practice Location Reason(s) For Visit Diagnoses Date Provider Providers Copied on Encounter [facility], [id number] [place] [address] [address], [place], [place], [id number], [place] tel:[phone] [facility] No Information 8-200 5 Booth OD Jv. [address] , [address], [place], [address], [place]. tel:[phone] Family History Family Member Type Diagnosis Age At Onset No Information Payers Payer name Insurance type Covered republican ID Authoriza tion(s) No Information Social History [...]
--- OUTSIDE RECORDS SUMMARY | 2025-02-17 17:18 | XMS_ITS | Encounter Summary ---
Author Organization [facility] Health Address [address] [facility] [place] [address] Care Team Providers Care Trick Rodeo Rider Name Role Phone Elizabeth Wei MD Primary Care Provider [phone]- [phone] Shagufta Khan MD Primary Care Provider [phone] Encounter Details Date Type Department Care Team (Late st Contact Info) Description 12/24/2019 Lab Requisition [facility] [address] [facility], [place] [phone] Arminda Boyd, [address] [facility] 3 [place] [address] Social History Tobacco Use Types Packs/Day Years [...] Description 06/10/2025 2:00 PM CDT Office Visit [facility] - Nephrology [address] [place] [address], [place] [address] Karthikeyan Elizabeth MD [address] [place] [address] [place] [address] documented as of this encounter Procedures Procedure Name Priority Date/Time Associated Diagnosis Comments DERMATOPATHOLOGY Routine 12/23/2019 12:0 0 AM CDT documented in this encounter Results * DERMATOPATHOLOGY (12/23/2019 12:00 AM CDT) Case Report Dermatopathology Report Case: [id number] Authorizing Provider: Arminda Boyd DO Collected: 12/23/2019 12:00 AM Ordering Location: [facility] DermPath Lab Received: 12/24/2019 11:36 AM Pathologist: Reema Payne MD Specimen: Skin, right forearm 0 1:14 PM CDT DERMATOPATHOLOGY LABORATORY Final Diagnosis Specimen A. SKIN, right forearm: LICHEN PLANUS-LIKE KERATOSIS (BENIGN LICHENOID KERATOSIS) (L82.1) 0 1:14 PM CDT DERMATOPATHOLOGY LABORATORY at 1314 CDT Clinical History R/O NMSC. 0 1:14 PM CDT DERMATOPATHOLOGY LABORATORY Gross Description Specimen A: Received is one formalin filled container labeled with the patient's name and designated right forearm. The specimen consists of a shave measuring 5d8g4gm. Jar 0. 0 1:14 PM CDT DERMATOPATHOLOGY [...] characteristic determined by the Dermatopathology Laboratory at [facility], directed by Dr. John Adams. These tests need not be, and therefore are not, approved by the [place] Food and Drug Administration. The tests are used for clinical purposes. Billing Codes Specimen Charges Stain Charges 05310 1 0 1:14 PM CDT DERMATOPATHOLOGY LABORATORY Embedded Images 0 1:14 PM CDT DERMATOPATHOLOGY LABORATORY Pathology/Cytolog y TISSUE SPECIMEN FROM SKIN / Unknown 12/23/2019 12/24/2019 11:36 AM CDT us Arminda Boyd DO LAB - PATHOLOGY/CYTOLOGY ORDERABLES Final Result DERMATOPATHOLOGY LABORATORY [facility] - Department of Dermatology [facility] [facility], 5th [place] [address], [facility] [phone] documented in this encounter Visit Diagnoses Not on filedocumented in this encounter Care Teams Trick Rodeo Rider Relationship Specialty Start Date End Date Elizabeth Wei MD PCP - General Family Medicine 01/22/19 09/25/23 Shagufta Khan MD [address] [place] [phone] PCP - General Family Medicine 09/26/23 documented as of this encounter
--- OUTSIDE RECORDS SUMMARY | 2025-02-17 17:18 | XMS_ITS | Encounter Summary ---
Author Organization [facility] Health Address [address] [facility] [place] [address] Care Team Providers Care Goat Herder Name Role Phone Elizabeth Wei MD Primary Care Provider [phone] Shagufta Khan MD Primary Care Provider Encounter Details Date Type Department Care Team (Late st Contact Info) Description 08/28/2019 Lab Requisition [facility] [address] [facility], [place] [phone] Arminda Boyd, [address] [facility] 3 [place] [address] Social History Tobacco Use Types Packs/Day Years [...] Description 06/10/2025 2:00 PM CDT Office Visit [facility] - Nephrology [address] [place] [address], [place] [address] Karthikeyan Elizabeth MD [address] [place] [address] [place] [address] documented as of this encounter Procedures Procedure Name Priority Date/Time Associated Diagnosis Comments DERMATOPATHOLOGY Routine 08/27/2019 12:0 0 AM HORSE TRAINER documented in this encounter Results * DERMATOPATHOLOGY (08/27/2019 12:00 AM HORSE TRAINER) Case Report Dermatopathology Report Case: [id number] Authorizing Provider: Arminda Boyd DO Collected: 08/27/2019 12:00 AM Ordering Location: [facility] DermPath Lab Received: 08/28/2019 10:17 AM Pathologist: Caitie Hutchins MD Specimens: A) - Skin, right upper arm B) - Skin, left abdomen 0 1:18 PM HORSE TRAINER DERMATOPATHOLOGY LABORATORY Final Diagnosis Specimen A. SKIN, right upper arm: SOLAR LENTIGO (L81.4) SEBORRHEIC KERATOSIS (L82.1) DERMAL FIBROSIS (L90.5) (see microscopic description) Specimen B. SKIN, left abdomen: LENTIGINOUS MELANOCYTIC NEVUS, COMPOUND TYPE (COMPOUND MELANOCYTIC NEVUS WITH ARCHITECTURAL DISORDER) (D22.5) 0 1:18 PM [facility] DERMATOPATHOLOGY LABORATORY at 1318 HORSE TRAINER Clinical History A: R/O recurrent melanocytic proliferation. Irreg color and border. B: Nevus R/O atypia. 0 1:18 PM [facility] DERMATOPATHOLOGY LABORATORY Gross Description Specimen A: Received is one formalin filled container labeled with the patient's name and designated right upper arm. The specimen consists of a shave measuring 5y9j3ep. Jar 0. Specimen B: Received is one formalin filled container labeled with the patient's name and designated left abdomen. The specimen consists of a shave measuring 7i9a2nm. Jar 0. 0 1:18 PM [facility] DERMATOPATHOLOGY LABORATORY Microscopic Description Specimen [...] or Compound Dysplastic Nevus) 0 1:18 PM [facility] DERMATOPATHOLOGY LABORATORY Disclaimer An external and internal positive and negative controls are appropriate for the histochemical, immunohistochemical and immunofluorescence stain(s) in this case (if any), except where stated explicitly. The performance characteristics of the stain(s) cited in this report were developed and its performance characteristic determined by the Dermatopathology Laboratory at [facility], directed by Dr. John Adams. These tests need not be, and therefore are not, approved by the [place] Food and Drug Administration. The tests are used for clinical purposes. Billing Codes Specimen Charges Stain Charges 52090 47054 1 1 20368 1 0 1:18 PM HORSE TRAINER DERMATOPATHOLOGY LABORATORY Embedded Images 0 1:18 PM HORSE TRAINER DERMATOPATHOLOGY LABORATORY Pathology/Cytology TISSUE SPECIMEN FROM SKIN / Unknown 08/27/2019 08/28/2019 10:17 AM HORSE TRAINER Miscellaneous samples (specimen) TISSUE SPECIMEN FROM SKIN / Unknown 08/27/2019 08/28/2019 10:17 AM HORSE TRAINER us Arminda Boyd DO LAB - PATHOLOGY/CYTOLOGY ORDERABLES Final Result DERMATOPATHOLOGY LABORATORY [facility] - Department of Dermatology [address] [place] [address], 5th Floor Lab [address] [phone] documented in this encounter Visit Diagnoses Not on filedocumented in this encounter Care Teams Goat Herder Relationship Specialty Start Date End Date Elizabeth Wei MD PCP - General Family Medicine 01/22/19 09/25/23 Shagufta Khan MD [address] [place] [address] PCP - General Family Medicine 09/26/23 documented as of this encounter
--- OUTSIDE RECORDS SUMMARY | 2025-02-17 17:18 | XMS_ITS | Encounter Summary ---
Demographics Address [address] [place] [address] Mobile Phone Home Phone Email Address Email Address Preferred Language Albanian Marital Status Zoroastrianism Affiliation Unknown Race White Ethnic Group Not or Lati no Author Organization [facility] Health Address [address] [place] [address] Care Team Providers Care Cardiac Cath Lab Technologist Name Role Phone Elizabeth Wei MD Primary Care Provider [phone]- [phone] Shagufta Khan MD Primary Care Provider [phone] Reason for Visit * Reason Onset Date Comments MEDICATION REFILL 11/02/2020 Encounter Details Date Type Department Care Team (Late st Contact Info) Description 11/02/2020 Refill [facility] - Nephrology [address] [place] [address], [place] [address] Karthikeyan Elizabeth MD [address] [place] [address] [place] [address] MEDICATION REFILL Social History Tobacco [...] Description 06/10/2025 2:00 PM CDT Office Visit [facility] - Nephrology [address] [place] [address], [place] [address] Karthikeyan Elizabeth MD [address] [place] [address] [place] [address] documented as of this encounter Visit Diagnoses Not on filedocumented in this encounter Care Teams Cardiac Cath Lab Technologist Relationship Specialty Start Date End Date Elizabeth Wei MD PCP - General Family Medicine 01/22/19 09/25/23 Shagufta Khan MD [address] [place] [address] PCP - General Family Medicine 09/26/23 documented as of this encounter
[2025-02-17 18:57] LABS: Hematocrit 46.1 % (42.0-52.0); Hemoglobin 14.5 g/dL (14.0-18.0); Immature Granulocyte Percent A 0.4 % (0-0.5); Lymphocytes Absolute Auto 0.55 K/mm3 (0.9-3.2); Mean Corpuscular HGB Conc 31.5 g/dl (32-36); Mean Corpuscular Hemoglobin 32.0 pg (26-34); Mean Corpuscular Volume 101.8 fl (80-100); Nucleated Red Blood Cells Absolute Auto 0.000 K/mm3 (0.0-0.012); Nucleated Red Blood Cells Perc 0.0 % (0.0-0.2); Platelet Count Result 231 k/mm3 (150-375); Red Blood Count 4.53 M/mm3 (4.6-6.20); White Blood Count 7.3 K/mm3 (4.5-10.0)
[2025-02-17 19:09] LABS: Alanine Aminotransferase 38 U/L (6-50); Albumin Level 4.0 g/dL (3.5-5.1); Alkaline Phosphatase 78 U/L (38-126); Anion Gap 13 mmol/L (4-12); Aspartate Amino Transferase 36 U/L (17-59); Bilirubin,Total 1.3 mg/dL (0.2-1.3); Blood Urea Nitrogen 35 mg/dL (9-20); Calcium 9.3 mg/dL (8.4-10.2); Carbon Dioxide 20 mmol/L (22-30); Chloride 106 mmol/L (98-107); Estimated CRCL calculation 46 ml/min; Estimated Glomerular Filt Rate 36; Glucose 96 mg/dL (65-110); INR 1.4; Potassium 5.1 mmol/L (3.4-5.0); Prothrombin Time 17.4 Seconds (11.1-14.7); Sodium 139 mmol/L (137-145); Total Protein 6.9 g/dL (6.3-8.2)
[2025-02-17 19:10] LABS: Partial Thromboplastin Time 37.8 Seconds (22.3-36.8)
[2025-02-17 19:13] LABS: Add Urine Microscopic? YES; Appearance Urine Clear (Clear); Glucose Urine UA 2+ mg/dL (Negative); Leukocyte Esterase Ur Negative LEU/UL (Negative); Need Manual Microscopic Reviewed; Nitrate Urine Negative (Negative); Specific Grav Ur 1.019 (1.001-1.035)
[2025-02-17] MEDS: LACTATED RINGERS 1,000 ML 999 ML IV CONT (19:38)
[2025-02-17] MEDS: ACETAMINOPHEN 500 MG TABLET 1000 MG PO (20:06)
== END 2025-02-17 21:21 | disposition home or self-care (01) ==
PROVIDERS: Emergency Provider Emergency Medicine; PCP Family Medicine
DX: S01.01XA Laceration without foreign body of scalp, initial encounter (principal); S06.5X0A Traumatic subdural hemorrhage without loss of consciousness, initial encounter; E86.0 Dehydration; I48.91 Unspecified atrial fibrillation; E11.40 Type 2 diabetes mellitus with diabetic neuropathy, unspecified; M19.90 Unspecified osteoarthritis, unspecified site; I25.10 Atherosclerotic heart disease of native coronary artery without angina pectoris; G47.30 Sleep apnea, unspecified; I13.0 Hypertensive heart and chronic kidney disease with heart failure and stage 1 through stage 4 chronic kidney disease, or unspecified chronic kidney disease; E11.22 Type 2 diabetes mellitus with diabetic chronic kidney disease; N18.30 Chronic kidney disease, stage 3 unspecified; I50.9 Heart failure, unspecified; V48.4XXA Person boarding or alighting a car injured in noncollision transport accident, initial encounter
CPT/HCPCS: 12002; 36415; 70450; 80053; 81001; 83605; 85025; 85610; 85730; 96360; 99284; A9270; J7120

== ENCOUNTER 2025-02-19 12:22 | Emergency (ER) | payer MEDICARE, SELFPAY ==
--- NOTE | ~2025-02-19 | XR_ITS ---
EXAM/PROCEDURE: XR chest 1V - 02/19/2025 13:40 CDT HISTORY: 79 years old Male with Weakness TECHNIQUE: Two view(s) of the chest. COMPARISON: 11/11/2020 FINDINGS: LUNGS/ PLEURA: Inspiratory volumes are small, which accounts for some vascular crowding. No focal con solidation, appreciable pneumothorax or large pleural effusion. Mild pulmonary vascular congestion. C hronic elevation of right hemidiaphragm causing compressive atelectasis. Probable small bilateral ple ural effusions. HEART/ MEDIASTINUM: Moderate cardiomegaly. Tortuous aorta. BONES: Degenerative changes. OTHER: Visualized upper abdomen is unremarkable. Postsurgical changes are seen in the left side of th e neck. IMPRESSION: Mild pulmonary vascular congestion and cardiomegaly. Superimposed infection cannot be excluded. Reviewed, dictated and finalized at location A. IMPRESSION: Mild pulmonary vascular congestion and cardiomegaly. Superimposed infection can not be excluded.
--- NOTE | ~2025-02-19 | CT_ITS ---
EXAM: CT brain wo con - 02/19/2025 13:30 CDT History: 79 years old Male with Fall/weakness, on eliquis COMPARISON: 02/17/2025 PROCEDURE: CT of the head without contrast. Axial, sagittal and coronal reformatted planes were milo luated. Automatic exposure control was used for this study. FINDINGS: No significant interval changes. BRAIN PARENCHYMA: Previously seen chronic right subdural hematoma along the right cerebral convexity is again seen and appears grossly unchanged in thickness, however there is component of layering incr easing hyperdensity which may represent acute on chronic subdural hemorrhage. No acute infarction. No midline shift or intraventricular extension of the subdural hemorrhage. Ventr icles are normal and symmetric. EXTRACRANIAL STRUCTURES: No calvarial fracture. IMPRESSION: Component of layering increasing hyperdensity in the previously seen chronic right subdural hematoma, concerning for possible acute on chronic subdural hemorrhage. Attention on follow-up imaging. Contin ued CT head surveillance is recommended. Reviewed, dictated and finalized at location A. IMPRESSION: Component of layering increasing hyperdensity in the previously seen chronic ri ght subdural hematoma, concerning for possible acute on chronic subdural hemorr sasha. Attention on follow-up imaging. Continued CT head surveillance is recomme nded.
--- NOTE | ~2025-02-19 | CT_ITS ---
EXAM: CT chst ab parker partida w - 02/19/2025 13:30 CDT HISTORY: 79 years old Male with weakness, Fall down 4 stairs, lower back pain TECHNIQUE: Multidetector CT of the chest, abdomen, pelvis, thoracic and lumbar spine was performed wi th intravenous contrast Coronal and sagittal reformats were also provided for review. Automatic expos ure control was used for this study. CONTRAST: 100 cc of Optiray 350 was used for this study COMPARISON: None available FINDINGS: CHEST: VISUALIZED LOWER NECK: Enlarged right lobe of thyroid gland with a large partially calcified nodule. No supraclavicular lymphadenopathy. AIRWAYS: Patent centrally. LUNGS and PLEURA: No evidence of consolidation/pulmonary contusion. No pneumothorax. Mosaic attenuati on of the lungs compatible with obstructive small airway disease. Bibasilar dependent changes. MEDIASTINUM and KAYLENE: No evidence of mediastinal hematoma. No lymphadenopathy. HEART AND PERICARDIUM: Atherosclerotic ulcerations are seen in the coronary arteries CHEST WALL: No axillary lymphadenopathy. Chest wall appears normal. VASCULATURE: Thoracic aorta and pulmonary arteries are normal in caliber. ABDOMEN and PELVIS: LIVER: Within normal limits. GALLBLADDER: No calcified gallstones. BILE DUCTS: Normal caliber. SPLEEN: Multiple calcified granulomas are seen in the spleen. PANCREAS: Within normal limits. ADRENAL GLANDS: Within normal limits. KIDNEYS and URETERS: No hydronephrosis or hydroureter. No evidence for nephroureterolithiasis. Nonspe cific bilateral perinephric stranding. Multiple bilateral renal cysts. Nonobstructive renal calculi i n the left kidney. URINARY BLADDER: Within normal limits. STOMACH and BOWEL: Limited evaluation without adequate distention due to lack of oral contrast. Withi n the limits there appears to be no abnormal bowel wall thickening. No bowel obstruction. REPRODUCTIVE ORGANS: Within normal limits. MESENTERY/PERITONEAL CAVITY: No free fluid or pneumoperitoneum. LYMPH NODES: No abdominal or pelvic lymphadenopathy. ABDOMINAL WALL: Bilateral fat-containing inguinal hernias. VASCULATURE: Within normal limits. MUSCULOSKELETAL, THORACIC AND LUMBAR SPINE: No acute fracture is identified in the chest, abdomen or pelvis. No fracture of the thoracic or the lumbar spine. Multilevel degenerative changes are seen. S- shaped curvature of the spine is noted. IMPRESSION: 1. No evidence of acute traumatic injury in chest, abdomen and pelvis, thoracic and lumbar spine. 2. Enlarged right lobe of the thyroid gland with a large partially calcified thyroid nodule. Correla te with prior imaging if available otherwise nonemergent outpatient routine thyroid ultrasound is rec ommended. Reviewed, dictated and finalized at location A. IMPRESSION: 1. No evidence of acute traumatic injury in chest, abdomen and pelvis, thoraci c and lumbar spine. 2. Enlarged right lobe of the thyroid gland with a large partially calcified t hyroid nodule. Correlate with prior imaging if available otherwise nonemergent outpatient routine thyroid ultrasound is recommended.
[2025-02-19 12:21] VITALS: BP 82/66; PULSE 94; RESP 18; TEMP 36.7; O2SAT 92
--- NOTE | 2025-02-19 13:10 | ECG_ITS ---
Test Date: 2025-02-19 12:26:39 Measurements Intervals Starbuck Rate: 105 P: 0 VT: 0 QRS: -48 QRSD: 148 T: 98 QT: 390 QTc: 517 Interpretive Statements ATRIAL FIBRILLATION WITH RAPID VENTRICULAR RESPONSE INTRAVENTRICULAR CONDUCTION DELAY [130+ ms QRS DURATION] Poor R wave progression No previous ECG available for comparison Electronically Signed On 02-19-2025 13:18:01 CDT by Pam Sanabria M.D.
[2025-02-19 13:33] LABS: Estimated CRCL calculation 40 ml/min; Estimated Glomerular Filt Rate 31
--- OUTSIDE RECORDS SUMMARY | 2025-02-19 13:36 | XMS_ITS | Encounter Summary ---
Author Organization [facility] Health Address [address] [facility] [place] [address] Care Team Providers Care Lace Roller Name Role Phone Elizabeth Wei MD Primary Care Provider [phone] Shagufta Khan MD Primary Care Provider Reason for Visit * Reason Onset Date Comments MEDICATION REFILL 11/02/2020 Encounter Details Date Type Department Care Team (Late st Contact Info) Description 11/02/2020 Refill [facility] - Nephrology [address] [place] [address], [place] [address] Karthikeyan Elizabeth MD [address] [place] [address] [place] [address] MEDICATION REFILL Social History Tobacco [...] Office Visit [facility] - Nephrology [address] [place] [address], [place] [address] Karthikeyan Elizabeth MD [address] [place] [address] [place] [address] documented as of this encounter Visit Diagnoses Not on filedocumented in this encounter Care Teams Lace Roller Relationship Specialty Start Date End Date Elizabeth Wei MD PCP - General Family Medicine 01/22/19 09/25/23 Shagufta Khan MD [address] [place] [address] PCP - General Family Medicine 09/26/23 documented as of this encounter
--- OUTSIDE RECORDS SUMMARY | 2025-02-19 13:36 | XMS_ITS | Encounter Summary ---
Author Organization [facility] Health Address [address] [facility] [place] [address] Care Team Providers Care Solutions Manager Name Role Phone Elizabeth Wei MD Primary Care Provider [phone] Shagufta Khan MD Primary Care Provider [phone] Encounter Details Date Type Department Care Team (Late st Contact Info) Description 08/28/2019 Lab Requisition [facility] [address] [facility], [place] [phone] Arminda Boyd, [address] [facility] 3 [place] [address] Social History Tobacco Use Types Packs/Day Years [...] Description 06/10/2025 2:00 PM CDT Office Visit [facility] - Nephrology [address] [place] [address], [place] [address] Karthikeyan Elizabeth MD [address] [place] [address] [place] [address] documented as of this encounter Procedures Procedure Name Priority Date/Time Associated Diagnosis Comments DERMATOPATHOLOGY Routine 08/27/2019 12:0 0 AM MECHANICAL EQUIPMENT TEST ENGINEER documented in this encounter Results * DERMATOPATHOLOGY (08/27/2019 12:00 AM MECHANICAL EQUIPMENT TEST ENGINEER) Case Report Dermatopathology Report Case: [id number] Authorizing Provider: Arminda Boyd DO Collected: 08/27/2019 12:00 AM Ordering Location: [facility] DermPath Lab Received: 08/28/2019 10:17 AM Pathologist: Caitie Hutchins MD Specimens: A) - Skin, right upper arm B) - Skin, left abdomen 0 1:18 PM MECHANICAL EQUIPMENT TEST ENGINEER DERMATOPATHOLOGY LABORATORY Final Diagnosis Specimen A. SKIN, right upper arm: SOLAR LENTIGO (L81.4) SEBORRHEIC KERATOSIS (L82.1) DERMAL FIBROSIS (L90.5) (see microscopic description) Specimen B. SKIN, left abdomen: LENTIGINOUS MELANOCYTIC NEVUS, COMPOUND TYPE (COMPOUND MELANOCYTIC NEVUS WITH ARCHITECTURAL DISORDER) (D22.5) 0 1:18 PM [facility] DERMATOPATHOLOGY LABORATORY at 1318 MECHANICAL EQUIPMENT TEST ENGINEER Clinical History A: R/O recurrent melanocytic proliferation. Irreg color and border. B: Nevus R/O atypia. 0 1:18 PM [facility] DERMATOPATHOLOGY LABORATORY Gross Description Specimen A: Received is one formalin filled container labeled with the patient's name and designated right upper arm. The specimen consists of a shave measuring 3e6t3ps. Jar 0. Specimen B: Received is one formalin filled container labeled with the patient's name and designated left abdomen. The specimen consists of a shave measuring 2s7h8mq. Jar 0. 0 1:18 PM [facility] DERMATOPATHOLOGY LABORATORY Microscopic Description Specimen A. [...] or Compound Dysplastic Nevus) 0 1:18 PM [facility] DERMATOPATHOLOGY LABORATORY Disclaimer An external and internal positive and negative controls are appropriate for the histochemical, immunohistochemical and immunofluorescence stain(s) in this case (if any), except where stated explicitly. The performance characteristics of the stain(s) cited in this report were developed and its performance characteristic determined by the Dermatopathology Laboratory at [facility], directed by Dr. John Adams. These tests need not be, and therefore are not, approved by the [place] Food and Drug Administration. The tests are used for clinical purposes. Billing Codes Specimen Charges Stain Charges 08210 11524 1 1 03065 1 0 1:18 PM MECHANICAL EQUIPMENT TEST ENGINEER DERMATOPATHOLOGY LABORATORY Embedded Images 0 1:18 PM MECHANICAL EQUIPMENT TEST ENGINEER DERMATOPATHOLOGY LABORATORY Pathology/Cytology TISSUE SPECIMEN FROM SKIN / Unknown 08/27/2019 08/28/2019 10:17 AM MECHANICAL EQUIPMENT TEST ENGINEER Miscellaneous samples (specimen) TISSUE SPECIMEN FROM SKIN / Unknown 08/27/2019 08/28/2019 10:17 AM MECHANICAL EQUIPMENT TEST ENGINEER us Arminda Boyd DO LAB - PATHOLOGY/CYTOLOGY ORDERABLES Final Result DERMATOPATHOLOGY LABORATORY [facility] - Department of Dermatology [address] [place] [address], 5th Floor Lab [address] [phone] documented in this encounter Visit Diagnoses Not on filedocumented in this encounter Care Teams Solutions Manager Relationship Specialty Start Date End Date Elizabeth Wei MD PCP - General Family Medicine 01/22/19 09/25/23 Shagufta Khan MD [address] [place] [address] PCP - General Family Medicine 09/26/23 documented as of this encounter
--- OUTSIDE RECORDS SUMMARY | 2025-02-19 13:36 | XMS_ITS | Clinical Summary ---
Author Organization [facility] Address [address] [place] [address] Care Team Providers Care Crossbar Frame Wirer Name Role Phone Shagufta Khan MD Primary Care Provider [phone] Allergies Active Allergy Reactions Criticality Noted Date [...] Sex Assigned at Male 07/18/2024 10:14 PM TITLE CURATIVE SPECIALIST Legal Sex Male 8:42 AM TITLE CURATIVE SPECIALIST Gender Identity Male 07/18/2024 10:14 PM TITLE CURATIVE SPECIALIST Sexual Orientation Straight 07/18/2024 10 :14 PM TITLE CURATIVE SPECIALIST Last Filed Vital Signs Vital Sign Reading [...] 185.4 cm (6' 1) 10/03/2023 1:43 PM TITLE CURATIVE SPECIALIST Body Mass Index 43.27 10/03/2023 1:43 PM TITLE CURATIVE SPECIALIST Plan of Treatment Health Maintenance Due Date [...] Insurance [employer] OPEN CHOICE PPO Care Teams Crossbar Frame Wirer Relationship Specialty Start Date End Date Shagufta Khan MD [address] [place] [phone] PCP - General Family Practice 10/02/23
--- OUTSIDE RECORDS SUMMARY | 2025-02-19 13:36 | XMS_ITS | Encounter Summary ---
Author Organization [facility] Health Address [address] [facility] [place] [address] Care Team Providers Care Software Design Manager Name Role Phone Elizabeth Wei MD Primary Care Provider [phone] Shagufta Khan MD Primary Care Provider [phone] Encounter Details Date Type Department Care Team (Late st Contact Info) Description 06/05/2019 Lab Requisition [facility] [address] [facility], [place] [phone] Amrinda Boyd, [address] [facility] 3 [place] [address] Social History Tobacco Use Types Packs/Day Years [...] Description 06/10/2025 2:00 PM CDT Office Visit [facility] - Nephrology [address] [place] [address], [place] [phone] Karthikeyan Elizabeth MD [address] [place] [address] [place] [address] documented as of this encounter Procedures Procedure Name Priority Date/Time Associated Diagnosis Comments DERMATOPATHOLOGY Routine 06/04/2019 12:0 0 AM CDT documented in this encounter Results * DERMATOPATHOLOGY (06/04/2019 12:00 AM CDT) Case Report Dermatopathology Report Case: [id number] Authorizing Provider: Arminda Boyd DO Collected: 06/04/2019 12:00 AM Ordering Location: [facility] Lab Received: 06/05/2019 05:22 AM [...] The specimen consists of a shave measuring 1n1u0dp. Jar 0. 2:28 PM CDT DERMATOPATHOLOGY LABORATORY [...] characteristic determined by the Dermatopathology Laboratory at [facility], directed by Dr. John Adams. These tests need not be, and therefore are not, approved by the [place] Food and Drug Administration. The tests are used for clinical purposes. Billing Codes Specimen Charges Stain Charges 29618 1 2:28 PM CDT DERMATOPATHOLOGY LABORATORY Embedded Images 2:28 PM CDT DERMATOPATHOLOGY LABORATORY Pathology/Cytolog y TISSUE SPECIMEN FROM SKIN / Unknown 06/04/2019 06/05/2019 5:22 AM CDT us Arminda Boyd DO LAB - PATHOLOGY/CYTOLOGY ORDERABLES Final Result DERMATOPATHOLOGY LABORATORY [facility] - Department of Dermatology [facility] [facility]th [place] [address], [facility] [phone] documented in this encounter Visit Diagnoses Not on filedocumented in this encounter Care Teams Software Design Manager Relationship Specialty Start Date End Date Elizabeth Wei MD PCP - General Family Medicine 01/22/19 09/25/23 Shagufta Khan MD [address] [place] [address] PCP - General Family Medicine 09/26/23 documented as of this encounter
--- OUTSIDE RECORDS SUMMARY | 2025-02-19 13:36 | XMS_ITS | Clinical Summary ---
Author Organization [facility] Address [address] [facility] [place] [place] [address] Care Team Providers Care Potato Peeling Machine Operator Name Role Phone Shagufta Khan MD Primary Care Provider Source Comments [facility],non-owned Affiliates and Associated Physician Practices is amultiple site organization consisting of ambulatory clinics and hospital sitesin [place], [place], [place] and [place]. This disclosure is being madepursuant to the Care Everywhere program and may not contain all information available regarding this patient. Last updated 18.[facility] Allergies Active Allergy Reactions Criticality Noted Date [...] goiter 02/27/2019 Coronary artery disease invo lving soboba coronary artery of soboba heart without angina pectoris 12/28/2017 Morbid obesity [...] Date Type Department Care Team Description 02/04/2025 [facility] - Nephrology [address] [place] [address] Karthikeyan Elizabeth MD Refill Request 12/31/2024 1:30 PM CDT Office Visit [facility] Group - Nephrology [address] [place] [address] Karthikeyan Elizabeth MD Stage 3 chronic kidney disease, unspecified whether stage 3a or 3b CKD (HCC) (Primary Dx) 12/31/2024 Travel 12/22/2024 Orders Only [facility] - Nephrology [address] [place] [address] Karthikeyan Elizabeth MD from Last 3 Months [...] CDT Respiratory Rate 18 07/02/2024 1:35 PM BOAT HOP Oxygen Saturation 97% 12/31/2024 1:47 PM CDT Inhaled Oxygen Concentration - - Weight 153.3 kg (338 lb) 12/31/2024 1:47 PM CDT Height 185.4 cm (6' 1) 07/02/2024 1:35 PM BOAT HOP Body Mass Index 44.59 07/02/2024 1:35 PM BOAT HOP Plan of Treatment Upcoming Encounters Date Type Department Care Team (Late st Contact Info) Description 06/10/2025 2:00 PM CDT Office Visit [facility] - Nephrology [address] [place] [address], [place] [address] Karthikeyan Elizabeth MD [facility] [place] [address] Health Maintenance Due Date Last [...] - 12/23/2024 1:09 PM CDT Performed at: [address] [place] [id number] Retread Builder: Peyman Lilly PhD, Phone: [phone] Karthikeyan Farmer MD LAB - URINE CHEM ISTRY ORDERABLES Final Result [facility] INSURANCE BILL [address] [place] [address] * (ABNORMAL) URINALYSIS REFLEX TO MICROSCOPIC NO CULTURE (12/22/2024 1:54 PM CDT) [facility] Specific [place] UA 1.018 1.005 - 1.030 [facility] INSURANCE [...] was indicated and was performed. Performed at: [address] [place] [id number] Retread Builder: Peyman Lilly PhD, Phone: [phone] WBC UA None seen 0 - 5 [...] - 12/23/2024 8:11 AM CDT Performed at: [facility] [id number] [place], [place] [id number] Retread Builder: Peyman Lilly PhD, Phone: [phone] Karthikeyan Farmer MD LAB - URINALYSIS ORDERABLES Final Result [facility] INSURANCE BILL [address] [place] [address] * (ABNORMAL) CBC WITH DIFFERENTIAL (12/22/2024 1:54 [...] 12/23/2024 7:09 AM CDT Performed at: [address] [id number] Retread Builder: Peyman Lilly PhD, Phone: [phone] Karthikeyan Farmer MD LAB - HEMATOLOGY ORDERABLES Final Result [facility] INSURANCE BILL [address] [place] [address] * (ABNORMAL) RENAL FUNCTION PANEL (12/22/2024 1:54 PM CDT) [facility] Glucose 156(H) 70 - 99 mg/dL [facility] [...] - 12/23/2024 8:11 AM CDT Performed at: [address] [id number] Retread Builder: Peyman Lilly PhD, Phone: [phone] Karthikeyan Farmer MD LAB - CHEMISTRY ORDERABLES Final Result [facility] INSURANCE BILL [address] [place] [address] * (ABNORMAL) HEMOGLOBIN A1C (EXTERNAL RESULT ENTRY) (06/17/2021) Hemoglobin A1c (EXTERNAL RESULT) 7.3(A) 4.8 - 5.6 % [facility] INSURANCE BILL Blood BLOOD SPECIMEN / Unknown 06/17/2021 Historical Provider LAB - CHEMISTRY ORDERABLE S Final Result [facility] INSURANCE BILL [address] [place] [address] from Last 3 Months or Most Recently Relevant to Health Maintenance Insurance [employer] AETNA MEDICARE ADV Advance Directives * Full Code (Latest Code Status on File) Date Activated Date Inactivated Comments 02/27/2019 3:26 PM 03/01/2019 6:53 PM * Full Code Date Activated Date Inactivated Comments 02/27/2019 6:49 AM 02/27/2019 3:26 PM Care Teams Potato Peeling Machine Operator Relationship Specialty Start Date End Date Shagufta Khan MD [address] [place] [address] PCP - General Family Medicine 09/26/23
--- OUTSIDE RECORDS SUMMARY | 2025-02-19 13:36 | XMS_ITS | Encounter Summary ---
Author Organization [facility] Health Address [address] [facility] [place] [address] Care Team Providers Care Pump Machine Operator Name Role Phone Elizabeth Wei MD Primary Care Provider [phone] Shagufta Khan MD Primary Care Provider [phone] Encounter Details Date Type Department Care Team (Late st Contact Info) Description 12/24/2019 Lab Requisition [facility] [address] [facility], [place] [address] Arminda Boyd, [address] [facility] 3 [place] [address] Social History Tobacco Use Types Packs/Day Years [...] Description 06/10/2025 2:00 PM CDT Office Visit [facility] - Nephrology [address] [place] [address], [place] [address] Karthikeyan Elizabeth MD [address] [place] [address] [place] [address] documented as of this encounter Procedures Procedure Name Priority Date/Time Associated Diagnosis Comments DERMATOPATHOLOGY Routine 12/23/2019 12:0 0 AM CDT documented in this encounter Results * DERMATOPATHOLOGY (12/23/2019 12:00 AM CDT) Case Report Dermatopathology Report Case: [id number] Authorizing Provider: Arminda Boyd DO Collected: 12/23/2019 12:00 AM Ordering Location: [facility] Lab Received: 12/24/2019 11:36 AM [...] The specimen consists of a shave measuring 6h4f4eh. Jar 0. 0 1:14 PM CDT DERMATOPATHOLOGY [...] determined by the Dermatopathology Laboratory at [facility], directed by Dr. John Adams. These tests need not be, and therefore are not, approved by the [place] Food and Drug Administration. The tests are used for clinical purposes. Billing Codes Specimen Charges Stain Charges 42490 1 0 1:14 PM CDT DERMATOPATHOLOGY LABORATORY Embedded Images 0 1:14 PM CDT DERMATOPATHOLOGY LABORATORY Pathology/Cytolog y TISSUE SPECIMEN FROM SKIN / Unknown 12/23/2019 12/24/2019 11:36 AM CDT us Arminda Boyd DO LAB - PATHOLOGY/CYTOLOGY ORDERABLES Final Result DERMATOPATHOLOGY LABORATORY [facility] - Department of Dermatology [facility] [facility], 5th [place] [address], [facility] [phone] documented in this encounter Visit Diagnoses Not on filedocumented in this encounter Care Teams Pump Machine Operator Relationship Specialty Start Date End Date Elizabeth Wei MD PCP - General Family Medicine 01/22/19 09/25/23 Shagufta Khan MD [address] [place] [id number] PCP - General Family Medicine 09/26/23 documented as of this encounter
--- OUTSIDE RECORDS SUMMARY | 2025-02-19 13:36 | XMS_ITS | Clinical Summary ---
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 ([facility]/HCC) 09/18/2019 Assessment & Plan (10/06/2021 9:52 AM TAPE SEWING MACHINE OPERATOR): Hx of diastolic dysfunction, mild leg swelling at baseline (also in setting of BMi 47, HTN) -Continue home telmisartan 80 mg every day, metoprol 150 mg BID, amlodipine 10 qdaily, chlorthalidone 25 qdaily and hydralazine at dc Coronary artery disease invo lving yocha dehe coronary artery of yocha dehe heart without angina pectoris 12/28/2017 Assessment & Plan (10/06/2021 9:51 AM TAPE SEWING MACHINE OPERATOR): -Continue home metoprolol/statin/telmisartan Morbid obesity with BMI of 45.0-49.9, adult 06/14 Disease of thyroid gland 01/02/2017 Overview (01/05/2017): Enlarged thyroid Diffuse goiter 01/02/2017 Overview (01/05/2017): Goiter diffuse Body mass index 40+ - severely obese 06/27/2016 Overview (11/17/2016): Morbid obesity with BMI of 45.0-49.9, adult Mixed diabetic hyperlipidemi a associated with type 2 diabetes mellitus ([facility]) 06/27/2016 Overview (11/17/2016): 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 ([facility]) 01/04/2016 Overview (11/17/2016): DM (diabetes mellitus), secondary, with neurologic complications Assessment & Plan (10/06/2021 9:50 AM TAPE SEWING MACHINE OPERATOR): -Continue home januvia 100 qS, metformin 1G BID, glimepiride at discharge ANTONIO on CPAP 07/06/2015 Overview (11/17/2016): ANTONIO on CPAP Assessment & Plan (10/06/2021 9:51 AM TAPE SEWING MACHINE OPERATOR): -Use CPAP while sleeping Hypertensive heart disease with congestive heart failure 11/24/2014 Overview (11/17/2016): Congestive heart failure, unspecified Muscle pain 03/11/2014 Overview (11/17/2016): Myalgia Encounters Date Type Department Care Team Description 02/10/2025 Telephone [facility] Cardiology [address] [address] [address] [place] [address] Tone Cummins MD 02/05/2025 11:30 AM CDT Office Visit [facility] [address] [facility] [place] [address] [place] [address] Yasemin Choudhary MD PhD 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 12/11/2024 Results Follow-Up [facility] [address] [facility] [place] [address] [place] [address] Yasemin Choudhary MD PhD Vitamin B6 12/10/2024 11:15 AM CDT Office Visit [facility] Medical Group Cardiology at [address] [place] [address] Tone Cummins MD Chronic combined systolic and diastolic heart failure (HCC) (Primary Dx); Hypertension associated with diabetes (HCC); Pulmonary HTN (HCC); Nonischemic cardiomyopathy (HCC); Coronary artery disease involving yocha dehe coronary artery of yocha dehe heart without angina pectoris; ANTONIO on CPAP 12/05/2024 3:25 PM CDT Lab [facility] ([facility]) [address] [place] [address] Neuropathy; B12 nutritional deficiency 12/05/2024 1:00 PM CDT Office Visit [facility] [address] [facility] 6th [place] [address] [place] [address] Yasemin Choudhary MD PhD B12 nutritional deficiency [...] on file Legal Sex Male 2:28 AM TAPE SEWING MACHINE OPERATOR Gender Identity Male 07/28/2020 10:07 AM TAPE SEWING MACHINE OPERATOR Sexual Orientation Straight 07/28/2020 10 :07 AM TAPE SEWING MACHINE OPERATOR 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 [employer] Not on file Not on file Not [...] Completed 04/27/2023 Medical Devices Implanted Type Area Demand Planning Manager Device Identifier Shelf Expiration Date Model / Serial / Lot Vascade Mvp 6-12fr Venous Closure - [id number] Implanted:Qty: 1 on 10/05/2021 by Luis Tran MD at [facility] Collagen Right: Femoral [employer] 06/27/2023 800-612C -10U / / [id number] Description:vein Vascade Mvp 6-12fr Venous Closure - [id number] - [id number] Implanted:Qty: 1 on 10/05/2021 by Luis Tran MD at [facility] Collagen Left: Femoral [employer] 06/27/2023 800-612C -10U / [id number] / [id number] Description:vein Vascade Mvp 6-12fr Venous Closure - [id number] Implanted:Qty: 1 on 10/05/2021 by Luis Tran MD at [facility] Collagen Right: Femoral [employer] 06/27/2023 800-612C -10U / / [id number] Description:vein Other - See Comments Other - see comments Knee Description:Bilateral knee r eplacements Other - See Comments Other - see comments Left: Knee Other - See Comments Other - see comments Right: Knee Procedures Procedure Name Priority Date/Time Associated Diagnosis Comments VITAMIN B6 Routine 12/05/2024 2:11 PM CDT Neuropathy B12 nutritional deficiency LIPID PANEL Routine 06/30/2024 10:21 AM TAPE SEWING MACHINE OPERATOR EGFR Routine 05/09/2024 12:09 PM CDT Interstitial [...] its performance characteristics determined by [facility] in a manner consistent with CLIA requirements. This test has not been cleared or approved by the U.S. Food and Drug Administration. Test Performed by: [facility] - [address] [address] Consulting Systems Engineer: Mateus Hernandez Ph.D.; CLIA# [id number] Blood 12/05/2024 2:11 PM CDT 12/05/2024 3:26 PM CDT Yasemin Choudhary MD PhD LAB BLOOD ORDERABLES Final Result [facility] Department [place] [address] Cnostant[facility] ref Lab * (ABNORMAL) Lipid panel (06/30/2024 10:21 AM TAPE SEWING MACHINE OPERATOR) SCRIBED Cholesterol, Total 144 0 - 200 EXTERNAL LAB SCRIBED HDL 45 40 - 100 EXTERNAL LAB SCRIBED LDL 64 0 - 100 EXTERNAL LAB SCRIBED Triglycerides 213(A) 0 - 150 EXTERNAL LAB Blood us Historical Provider LAB BLOOD ORDERABLES Edit ed Result - Final Performing Organization Address [facility] Co de Phone [...] ORDERABLES Final Resul t [facility] Department [place] [address] * Hepatitis panel, acute Blood (04/27/2023 11:14 AM CDT) Hep A IgM Nonreactive Nonreactive Hep B core IgM Nonreactive Nonreactive [facility] Hep C Ab Nonreactive Nonreactive [facility] Comment:Antibodies to HCV no t detected. Does NOT exclude the possibility of recent exposure to HCV. Current interpretive data was last revised on 22 HepBsAg Nonreactive Nonreactive [facility] Blood 04/27/2023 11:1 4 AM CDT 04/27/2023 2:07 PM CDT Beverley Torres MD LAB MICROBIOLOGY - GENERAL ORDER TRAY Final Result Performing Organization Address City/State/[facility] Co de Phone Number [facility] Department [place] [address] from Last 3 Months or Most Recently Relevant to Health Maintenance Insurance [facility] MEDICARE [facility] MEDICARE [facility] MEDICARE Care Teams Paper Bag Maker Relationship Specialty Start Date End Date Shagufta Khan MD PCP - General Family Medicine 02/02/21
--- OUTSIDE RECORDS SUMMARY | 2025-02-19 13:36 | XMS_ITS | Encounter Summary ---
Author Organization [facility] Health Address [address] [facility] [place] [address] Care Team Providers Care Geological Science Teacher Name Role Phone Elizabeth Wei MD Primary Care Provider [phone] Shagufta Khan MD Primary Care Provider [phone] Encounter Details Date Type Department Care Team (Late st Contact Info) Description 02/25/2019 Lab Requisition [facility] [address] [facility] [place] [place] [address] Leola Pereyra MD [address] [facility] 3 [place] [address] Social History Tobacco Use Types Packs/Day Years [...] Description 06/10/2025 2:00 PM CDT Office Visit [facility] - Nephrology [address] [facility], [place] [address] Karthikeyan Elizabeth MD [address] [place] [address] [address] [place] [address] documented as of this encounter Procedures Procedure Name Priority Date/Time Associated Diagnosis Comments DERMATOPATHOLOGY Routine 02/24/2019 12:0 0 AM CDT documented in this encounter Results * DERMATOPATHOLOGY (02/24/2019 12:00 AM CDT) Case Report Dermatopathology Report Case: [id number] Authorizing Provider: Leola Pereyra MD Collected: 02/24/2019 [...] specimen consists of a shave biopsy measuring 30g54n6 mm. Jar 0. 9 3:52 PM CDT [...] characteristic determined by the Dermatopathology Laboratory at [facility], directed by Dr. John Adams. These tests need not be, and therefore are not, approved by the [place] Food and Drug Administration. The tests are used for clinical purposes. Billing Codes Specimen Charges Stain Charges 89175 1 64631 22129 1 1 3:52 PM CDT DERMATOPATHOLOGY LABORATORY [...] PATHOLOGY/CYTOLOGY OR DERABLES Final Result DERMATOPATHOLOGY LABORATORY [facility] - Department of Dermatology [address] [facility] 5th [place] [address], [facility] [phone] documented in this encounter Visit Diagnoses Not on filedocumented in this encounter Care Teams Geological Science Teacher Relationship Specialty Start Date End Date Elizabeth Wei MD PCP - General Family Medicine 01/22/19 09/25/23 Shagufta Khan MD [address] [place] [address] PCP - General Family Medicine 09/26/23 documented as of this encounter
--- OUTSIDE RECORDS SUMMARY | 2025-02-19 13:36 | XMS_ITS | Encounter Summary ---
Author Organization [facility] Health Address [address] [place] [address] Care Team Providers Care Pencil Maker Name Role Phone Elizabeth Wei MD Primary Care Provider [phone] Shagufta Khan MD Primary Care Provider [phone] Reason for Visit * Reason Onset Date Comments MEDICATION REFILL 04/19/2019 Encounter Details Date Type Department Care Team (Late st Contact Info) Description 04/19/2019 Refill [facility] [address] [place] [address] Rolando Long MD [address] [facility] [address] [place] [address] MEDICATION REFILL Social History Tobacco Use Types [...] Visit [facility] - Nephrology [address] [facility], [place] [address] Karthikeyan Elizabeth MD [address] [place] [address] [place] [address] documented as of this encounter Visit Diagnoses Not on filedocumented in this encounter Care Teams Pencil Maker Relationship Specialty Start Date End Date Elizabeth Wei MD PCP - General Family Medicine 01/22/19 09/25/23 Shagufta Khan MD [address] [place] [address] PCP - General Family Medicine 09/26/23 documented as of this encounter
--- OUTSIDE RECORDS SUMMARY | 2025-02-19 13:36 | XMS_ITS | Referral Summary ---
Author Organization [facility] [address] Address [address] [place] [address] Care Team Providers Care Title Curator Name Role Phone Shagufta Khan MD Primary Care Provider [phone] Encounters Date Type Department Care Team Description 02/10/2025 Telephone [facility] Medical [facility] Cardiology [address] [place] [address] Tone Cummins MD 02/05/2025 11:30 AM CDT Office Visit [facility] Neuro Muscle [address] [facility] Medicine 6th [place] [address] [place] [id number] Yasemin Choudhary MD PhD 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 12/11/2024 Results Follow-Up [facility] [address] [facility] Medicine 6th [place] [address] [place] [address] Yasemin Choudhary MD PhD Vitamin B6 12/10/2024 11:15 AM CDT Office Visit [facility] Medical Group Cardiology at [address] [place] [address] Tone Cummins MD Chronic combined systolic and diastolic heart failure (HCC) (Primary Dx); Hypertension associated with diabetes (HCC); Pulmonary HTN (HCC); Nonischemic cardiomyopathy (HCC); Coronary artery disease involving [place] vie[place] coronary artery of lac vieux heart without angina pectoris; ANTONIO on CPAP 12/05/2024 3:25 PM CDT Lab [facility] ([facility]) [address] [place] [address] Neuropathy; B12 nutritional deficiency 12/05/2024 1:00 PM CDT Office Visit [facility] Neuro Muscle [address] [facility] 6th [place] [address] [place] [id number] Yasemin Choudhary MD PhD B12 nutritional deficiency [...] 04/26/2021 Assessment & Plan (10/06/2021 9:53 AM WAREHOUSE REPRESENTATIVE): With symptoms of exertional dyspnea/exercise intolerance, attempted [...] heart failure with p reserved ejection fraction ([facility]/HCC) 09/18/2019 Assessment & Plan (10/06/2021 9:52 AM WAREHOUSE REPRESENTATIVE): Hx of diastolic dysfunction, mild leg swelling at baseline (also in setting of BMi 47, HTN) -Continue home telmisartan 80 mg every day, metoprol 150 mg BID, amlodipine 10 qdaily, chlorthalidone 25 qdaily and hydralazine at dc Coronary artery disease invo lving lac vieux coronary artery of lac vie[place] heart without angina pectoris 12/28/2017 Assessment & Plan (10/06/2021 9:51 AM WAREHOUSE REPRESENTATIVE): -Continue home metoprolol/statin/telmisartan Morbid obesity with BMI of 45.0-49.9, adult 06/14 Disease of thyroid gland 01/02/2017 Overview (01/05/2017): Enlarged thyroid Diffuse goiter 01/02/2017 Overview (01/05/2017): Goiter diffuse Body mass index 40+ - severely obese 06/27/2016 Overview (11/17/2016): Morbid obesity with BMI of 45.0-49.9, adult Mixed diabetic hyperlipidemi a associated with type 2 diabetes mellitus ([facility]/HCC) 06/27/2016 Overview (11/17/2016): 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 ([facility]/HCC) 01/04/2016 Overview (11/17/2016): DM (diabetes mellitus), secondary, with neurologic complications Assessment & Plan (10/06/2021 9:50 AM WAREHOUSE REPRESENTATIVE): -Continue home januvia 100 qS, metformin 1G BID, glimepiride at discharge ANTONIO on CPAP 07/06/2015 Overview (11/17/2016): ANTONIO on CPAP Assessment & Plan (10/06/2021 9:51 AM WAREHOUSE REPRESENTATIVE): -Use CPAP while sleeping Hypertensive heart disease [...] on file Legal Sex Male 2:28 AM WAREHOUSE REPRESENTATIVE Gender Identity Male 07/28/2020 10:07 AM WAREHOUSE REPRESENTATIVE Sexual Orientation Straight 07/28/2020 10 :07 AM WAREHOUSE REPRESENTATIVE 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 Collagen Right: Femoral [employer] 06/27/2023 800-612C -[id number] / / [id number] Description:vein Vascade Mvp 6-12fr Venous Closure - [id number] - [id number] Implanted:Qty: 1 on 10/05/2021 by Luis Tran MD at [facility] Collagen Left: Femoral [employer] 06/27/2023 800-612C -[id number] / [id number] / [id number] Description:vein Vascade Mvp 6-12fr Venous Closure - [id number] Implanted:Qty: 1 on 10/05/2021 by Luis Tran MD at [facility] Collagen Right: Femoral [employer] 06/27/2023 800-612C -[id number] / / [id number] Description:vein Other - See Comments Other - see comments Knee Description:Bilateral knee r eplacements Other - See Comments Other - see comments Left: Knee Other - See Comments Other - see comments Right: Knee Procedures Procedure Name Priority Date/Time Associated Diagnosis Comments VITAMIN B6 Routine 12/05/2024 2:11 PM CDT Neuropathy B12 nutritional deficiency LIPID PANEL Routine 06/30/2024 10:21 AM WAREHOUSE REPRESENTATIVE EGFR Routine 05/09/2024 12:09 PM CDT Interstitial pulmonary disease (HCC) High risk medication use HEPATITIS PANEL, ACUTE Routine 04/27/2023 11:14 AM CDT Interstitial pulmonary disease (HCC) from Last 3 Months or Most Recently Relevant to Health Maintenance Results * Vitamin B6 (12/05/2024 2:11 PM CDT) Pathologist [facility] Pyridoxal phosphate (Vit B6) 9 5 - 50 mcg/L [place] [facility] Comment: ADDITIONAL INFORMATION This test was developed and its performance characteristics determined by [facility] in a manner consistent with CLIA requirements. This test has not been cleared or approved by the U.S. Food and Drug Administration. Test Performed by: [facility] [address] [place] [address] Vinyl Hanger: Mateus Hernandez Ph.D.; CLIA# [id number] Blood 12/05/2024 2:11 PM CDT 12/05/2024 3:26 PM CDT Yasemin Choudhary MD PhD LAB BLOOD ORDERABLES Final Result [facility] [place] [address] [place] [facility] * (ABNORMAL) Lipid panel (06/30/2024 10:21 AM WAREHOUSE REPRESENTATIVE) SCRIBED Cholesterol, Total 144 0 - 200 [...] MD LAB BLOOD ORDERABLES Final Resul t [facility] [place] [address] * Hepatitis panel, acute Blood (04/27/2023 11:14 AM CDT) Hep A IgM Nonreactive Nonreactive Hep B core IgM Nonreactive Nonreactive [facility] Hep C Ab Nonreactive Nonreactive [facility] Comment:Antibodies to HCV no t detected. Does NOT exclude the possibility of recent exposure to HCV. Current interpretive data was last revised on 22 HepBsAg Nonreactive [facility] Blood 04/27/2023 11:1 4 AM CDT 04/27/2023 2:07 PM CDT Beverley Torres MD LAB MICROBIOLOGY - GENERAL ORDER TRAY Final Result [facility] [place] [address] from Last 3 Months or Most Recently Relevant to Health Maintenance Insurance [facility]IC[facility] MEDICARE [facility] MEDICARE Care Teams Title Curator Relationship Specialty Start Date End Date Shagufta Khan MD PCP - General Family Medicine 02/02/21
--- OUTSIDE RECORDS SUMMARY | 2025-02-19 13:36 | XMS_ITS | Encounter Summary ---
Author Organization [facility] Address [address] [place] [address] Phone Care Team Providers Care Deputy County Counsel Name Role Phone Shagufta Khan MD Primary Care Provider [phone] Encounter Details Date Type Department Care Team [...] on file Legal Sex Male 2:28 AM DESIGN SALES CONSULTANT Gender Identity Male 07/28/2020 10:07 AM DESIGN SALES CONSULTANT Sexual Orientation Straight 07/28/2020 10 :07 AM DESIGN SALES CONSULTANT documented as of this encounter Plan of Treatment Not on file documented as of this encounter Procedures Procedure Name Priority Date/Time Associated Diagnosis Comments SCAN - LABS 03/06/2023 documented in this encounter Results * SCAN - LABS (03/06/2023) us Provider Scanning Final Result documented in this encounter Visit Diagnoses Not on filedocumented in this encounter Care Teams Deputy County Counsel Relationship Specialty Start Date End Date Shagufta Khan MD PCP - General Family Medicine 02/02/21 documented as of this encounter
--- NOTE | 2025-02-19 13:54 | ED_ITS ---
HPI - General Adult General Chief complaint: Fall Stated complaint: fall, weakness Time Seen by Provider: 02/19/25 13:08 History of Present Illness HPI narrative: This is a 79-year-old male multiple medical comorbidities presenting after a fall. Patient was walking up the stairs when his legs gave out. He fell backwards grabbing the rail and the lowering himself to the stairs and then sliding down 4 stairs to the bottom. He does not believe that he struck his head. He did not lose consciousness. He does not have any significant injuries or pain anywhere. Patient is on Eliquis for atrial fibrillation. Patient was seen in our ER 2 days ago after a ground level fall and a scalp repair. Related Data Home Medications ?Medication ?Instructions ?Recorded ?Confirmed ?Last Taken ?Type amlodipine 10 mg tablet 10 mg PO DAILY 12/19/19 01/14/25 06/07/23 History finasteride 5 mg tablet 5 mg PO DAILY 12/19/19 01/14/25 06/07/23 History apixaban 5 mg tablet (Eliquis) 5 mg PO BID 05/20/21 01/14/25 06/04/23 History sodium bicarbonate 650 mg tablet 650 mg PO TID 12/19/21 01/14/25 06/06/23 History furosemide 40 mg tablet 40 mg PO DAILY 11/28/22 01/14/25 06/05/23 History chlorthalidone 25 mg tablet 25 mg PO DAILY 01/18/23 01/14/25 06/07/23 History empagliflozin 10 mg tablet 10 mg PO DAILY 01/18/23 01/14/25 06/07/23 History (Jardiance) metoprolol succinate 100 mg 100 mg PO DAILY 07/10/23 01/14/25 Unknown History tablet,extended release 24 hr sacubitril 24 mg-valsartan 26 mg 1 tablet PO BID 07/10/23 01/14/25 Unknown History tablet (Entresto) clonidine HCl 0.1 mg-0.2 mg 0.1 mg PO BID 07/14/24 01/14/25 Unknown History tablet,extended release dose pack hydralazine 100 mg tablet 50 mg PO TID 07/14/24 01/14/25 Unknown History Allergies Allergy/AdvReac Type Severity Reaction Status Date / Time diclofenac Allergy Unknown Unknown Verified 02/19/25 14:02 Penicillins Allergy Unknown Unknown Verified 02/19/25 14:02 [facility] Past Medical History Medical History Atrial fibrillation 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, bilateral Multinodular goiter Morbid obesity with BMI of 45.0-49.9, adult Coronary artery disease ANTONIO on CPAP Primary hypertension Chronic diastolic CHF (congestive heart failure) Non-ischemic cardiomyopathy Dyspnea on exertion Morbid obesity Cataracts, bilateral CKD (chronic kidney disease) stage 3, GFR 30-59 ml/min Chronic joint pain Type 2 diabetes mellitus Surgical History Surgical History S/P ablation of atrial fibrillation History of thyroidectomy (~02/2019) Hx of cataract extraction (~08/2020) History of skin surgery (~03/2019) 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 Family History Family History Father Diabetes mellitus Mother Diabetes mellitus Sibling Diabetes mellitus Social History Social History Social History: former smoker Smoking packs per day: 1 Smoking cigarettes per day: 20.0 Years smoked: 10 Smoking pack-years: 10.00 Smoking status: Former smoker Tobacco type: cigarettes Second hand tobacco smoke exposure: No Smoking end date: 08/13/70 Alcohol intake: current Drinks per week: 12 Substance use: never Substance use type: does not use Lack of Transportation: No Lack of Food: Never True Current Housing: I Have Housing Concerned About Future Housing: No Difficulty Paying Gas/Electric Bills: No Difficulty Paying for Meds: No Currently Unemployed: No Education: High School Diploma/GED Difficulty w/ Childcare or Family Care: No Living arrangements: alone Occupation/Education: retired Gender identity (if verbalized by the patient): Male Spiritual care concerns: No Agree to blood products: Yes Exam 2 Narrative: APPEARANCE: No apparent distress. Head: [place] the posterior scalp EYES: EOMI, NOSE: Atraumatic NECK: Trachea midline RESPIRATORY: No increased rate of breathing bibasilar crackles CARDIOVASCULAR: Irregular, pitting edema lower extremities with weeping ABDOMINAL: Non-distended soft nontender MUSCULOSKELETAl: No obvious deformities NEURO: Alert. Cranial nerves 2-12 grossly intact. Sensation light touch, motor function cerebellar function intact for 4 extremities. Gait exam was deferred. GCS 15 SKIN:: Warm, dry. Normal color PSYCHIATRIC: Normal affect Course Vital Signs Vital signs: Vital Signs Temperature 98.0 F 02/19/25 12:21 Pulse Rate 94 02/19/25 12:21 Respiratory Rate 18 02/19/25 12:21 Blood Pressure 82/66 L 02/19/25 12:21 Pulse Oximetry 92 02/19/25 12:21 Oxygen Delivery Room Air 02/19/25 12:21 Temperature 98.0 F 02/19/25 12:21 Pulse Rate 94 02/19/25 12:21 Respiratory Rate 18 02/19/25 12:21 Blood Pressure 82/66 L 02/19/25 12:21 Pulse Oximetry 92 02/19/25 12:21 Oxygen Delivery Room Air 02/19/25 12:21 Medical Decision Making MDM Narrative Medical decision making narrative: -Course: 79 year-old male presenting after falling down [address] of the brain showed a chronic subdural with layering concerning for acute on chronic subdural hematoma. Patient's Eliquis was reversed with 4 factor PCC. Patient will be transferred to [facility] for trauma evaluation. Patient accepted by Dr. Cerna. Rest the patient's workup was significant for an elevated BNP and mild elevations in troponin. No ischemic changes on EKG. Likely demand ischemia. Patient does not have any increased oxygen demands. Patient's blood pressures are in the low 100s and we will hold off on diuresis until after his subdural hematoma is addressed. -DDX includes but is not limited to: Intercerebral hemorrhage, CHF, pneumonia, DVT -Co-morbidities complicating care: AFib on Eliquis, mixed heart failure Vital Signs Vital Signs: Vital Signs Temperature 98.0 F 02/19/25 12:21 Pulse Rate 94 02/19/25 12:21 Respiratory Rate 18 02/19/25 12:21 Blood Pressure 82/66 L 02/19/25 12:21 Pulse Oximetry 92 02/19/25 12:21 Oxygen Delivery Room Air 02/19/25 12:21 Temperature 98.0 F 02/19/25 12:21 Pulse Rate 94 02/19/25 12:21 Respiratory Rate 18 02/19/25 12:21 Blood Pressure 82/66 L 02/19/25 12:21 Pulse Oximetry 92 02/19/25 12:21 Oxygen Delivery Room Air 02/19/25 12:21 Lab Data 02/19/25 13:31 Labs: Lab Results 02/19/25 Range/Units 13:31 Creatinine 2.10 H (0.8-1.5) mg/dL Estim Creat Clear Calc 40 ml/min Estimated GFR 31 L (59 - ) Discharge Plan Discharge Clinical Impression: Acute on chronic intracranial subdural hematoma, CHF (congestive heart failure) Patient Disposition: Acute Care Hospital Condition: Guarded Prognosis Patient Language: Kinyarwanda Prescriptions: No Action amlodipine 10 mg tablet 10 mg PO DAILY finasteride 5 mg tablet 5 mg PO DAILY metoprolol succinate 100 mg tablet extended release 24 hr 100 mg PO DAILY Entresto 24-26 mg tablet 1 tablet PO BID sodium bicarbonate 650 mg tablet 650 mg PO TID furosemide 40 mg tablet 40 mg PO DAILY Jardiance 10 mg tablet 10 mg PO DAILY chlorthalidone 25 mg tablet 25 mg PO DAILY hydralazine 100 mg tablet 50 mg PO TID clonidine HCl 0.1-0.2 mg tablet extended rel,dose pack 0.1 mg PO BID Eliquis 5 mg tablet 5 mg PO BID glimepiride 4 mg tablet 4 mg PO DAILY Qty: 90 3RF Januvia 100 mg tablet 100 mg PO DAILY Qty: 90 3RF metformin 500 mg tablet extended release 24 hr 1,000 mg PO BID Qty: 360 3RF gabapentin 300 mg capsule 600 mg PO QHS Qty: 180 2RF pravastatin 20 mg tablet 20 mg PO DAILY Qty: 90 3RF Follow-up/Referrals: Shagufta Khan MD [Primary Care Provider] -
--- NOTE | 2025-02-19 13:55 | PCRCNOTE ---
VBG LATE, WAITING ON GREEN TOP FROM ED STAFF TO BE OBTAINED.
[2025-02-19 14:01] VITALS: BP 126/80; PULSE 95; RESP 20; O2SAT 94
[2025-02-19 14:01] LABS: Fractional Inspired Oxygen 21 %; HCO3 VBG 18.7 mEq/l (24.0-30.0); PCO2 VBG 31.1 mmHg (42.0-48.0); PO2 VBG 48.3 mmHg (35.0-45.0); pH VBG 7.397 (7.300-7.400)
[2025-02-19 14:12] LABS: Hematocrit 41.0 % (42.0-52.0); Hemoglobin 12.7 g/dL (14.0-18.0); Immature Granulocyte Percent A 0.4 % (0-0.5); Lymphocytes Absolute Auto 0.28 K/mm3 (0.9-3.2); Mean Corpuscular HGB Conc 31.0 g/dl (32-36); Mean Corpuscular Hemoglobin 31.8 pg (26-34); Mean Corpuscular Volume 102.5 fl (80-100); Nucleated Red Blood Cells Absolute Auto 0.000 K/mm3 (0.0-0.012); Nucleated Red Blood Cells Perc 0.0 % (0.0-0.2); Platelet Count Result 186 k/mm3 (150-375); Red Blood Count 4.00 M/mm3 (4.6-6.20); White Blood Count 7.0 K/mm3 (4.5-10.0)
[2025-02-19 14:22] LABS: INR 1.8; Prothrombin Time 20.1 Seconds (11.1-14.7)
[2025-02-19 14:23] LABS: Partial Thromboplastin Time 36.8 Seconds (22.3-36.8)
[2025-02-19 14:32] LABS: Schistocytes None Seen
[2025-02-19 14:33] LABS: Anisocytosis 1+
[2025-02-19 14:34] LABS: Alanine Aminotransferase 31 U/L (6-50); Albumin Level 3.4 g/dL (3.5-5.1); Alkaline Phosphatase 70 U/L (38-126); Anion Gap 11 mmol/L (4-12); Aspartate Amino Transferase 31 U/L (17-59); Bilirubin,Total 1.2 mg/dL (0.2-1.3); Blood Urea Nitrogen 33 mg/dL (9-20); Calcium 8.8 mg/dL (8.4-10.2); Carbon Dioxide 20 mmol/L (22-30); Chloride 109 mmol/L (98-107); Estimated CRCL calculation 43 ml/min; Estimated Glomerular Filt Rate 33; Glucose 116 mg/dL (65-110); Lipase 59 U/L (23-300); Magnesium 1.8 mg/dL (1.6-2.3); Potassium 4.4 mmol/L (3.4-5.0); Sodium 140 mmol/L (137-145); Total Protein 5.8 g/dL (6.3-8.2)
[2025-02-19 14:39] LABS: Add Urine Microscopic? YES; Appearance Urine Clear (Clear); Glucose Urine UA 3+ mg/dL (Negative); Leukocyte Esterase Ur Negative LEU/UL (Negative); Need Manual Microscopic Reviewed; Nitrate Urine Negative (Negative); Specific Grav Ur 1.021 (1.001-1.035)
[2025-02-19 14:46] LABS: Influenza A QL RT-PCR Negative (Negative); Influenza B QL RT-PCR Negative (Negative); RSV RNA, RT-PCR Negative (Negative); SARS-CoV-2 RNA PCR Negative (Negative)
[2025-02-19 14:53] LABS: NT Pro B Type Natriuretic Pept 10800 pg/mL (19.9-100); Troponin I 0.041 ng/mL (0.000-0.034)
[2025-02-19 14:54] VITALS: BP 110/89; PULSE 93; RESP 18; O2SAT 97
--- NOTE | 2025-02-19 14:55 | PC.NURSE ---
Phlebotomy here and is unable to obtain blood for 3hour Trop.
[2025-02-19 15:01] LABS: Thyroid Stimulating Hormone Reflex 0.486 uIU/mL (0.465-4.68)
[2025-02-19 15:08] LABS: Cannabinoid Screen Urine Negative (Negative)
--- NOTE | 2025-02-19 16:19 | ECG_ITS ---
Test Date: 2025-02-19 16:23:54 Measurements Intervals [place] Rate: 89 P: 0 NC: 0 QRS: -52 QRSD: 148 T: 116 QT: 423 QTc: 517 Interpretive Statements ATRIAL FIBRILLATION WITH CONTROLLED VENTRICULAR RESPONSE PVC VERSUS ABERRANT CONDUCTION Electronically Signed On 02-20-2025 10:48:24 CDT by Alber Fleming D.O
[2025-02-19 16:39] VITALS: BP 125/91; PULSE 88; RESP 20; O2SAT 97
[2025-02-19] MEDS: HUMAN PROTHROMBIN COMPLEX(PCC) 5,000 UNITS in PREMIXIV 0 ML 8.4 UNITS IV CONT (17:11)
[2025-02-19 17:25] LABS: Troponin I 0.050 ng/mL (0.000-0.034)
== END 2025-02-19 18:01 | disposition short-term general hospital (02) ==
PROVIDERS: Emergency Provider Emergency Medicine; PCP Family Medicine
DX: S06.5X0A Traumatic subdural hemorrhage without loss of consciousness, initial encounter (principal); I50.9 Heart failure, unspecified; R79.89 Other specified abnormal findings of blood chemistry; I48.91 Unspecified atrial fibrillation; W10.9XXA Fall (on) (from) unspecified stairs and steps, initial encounter; Z87.891 Personal history of nicotine dependence; Z79.01 Long term (current) use of anticoagulants; Z79.899 Other long term (current) drug therapy; Z20.822 Contact with and (suspected) exposure to COVID-19; Z91.81 History of falling
CPT/HCPCS: 36415; 70450; 71045; 71260; 72129; 72132; 74177; 80053; 80307; 81001; 82077; 82803; 83605; 83690; 83735; 83880; 84100; 84443; 84484; 85025; 85610; 85730; 87086; 87637; 93005; 96365; 99285; J7168; Q9967

== ENCOUNTER 2025-03-18 07:47 | Inpatient (IN) | payer MEDICARE, SELFPAY ==
[2025-03-18] VITALS (15 sets, daily range): BP systolic 94–136; BP diastolic 52–96; PULSE 66–84; RESP 16–24; TEMP 36–37.6; O2SAT 92–100
--- NOTE | ~2025-03-18 | XR_ITS ---
XR lumbar spine 2-3V 03/18/2025 09:16 Indication: Low back pain Procedure: 3 views lumbar spine Comparison: MRI brain dated 09/07/2015 Findings: There is disc narrowing at all lumbar levels most severe at L2-3 and L5-S1. There is advanc ed multilevel facet osteoarthritis. There is levoscoliosis. There are prominent arterial osteophytes at L4-5. Sacral foramen are symmetric. No acute fracture or traumatic malalignment. There is atherosc lerosis of the aorta. Impression: 1: Severe lumbar spondylosis with levoscoliosis. Reviewed, dictated and finalized at location A. Impression: 1: Severe lumbar spondylosis with levoscoliosis.
--- NOTE | ~2025-03-18 | MR_ITS ---
EXAMINATION: MR lumbar spine wo/w con DATE: 03/23/2025 17:43 INDICATION: Discitis and osteomyelitis TECHNIQUE: Magnetic resonance imaging (MRI) of the lumbar spine was performed without and with 15 mL Multihance intravenous contrast. Sequences included sagittal T2-weighted FSE, sagittal T2-weighted FS FSE, and sagittal and axial T1-weighted FSE. Postcontrast sequences included axial T2-weighted FSE, sagittal T1-weighted FSE, and axial and sagittal T1-weighted FS FSE. COMPARISON: 03/20/2025 FINDINGS: 10 degrees lumbar levocurvature. Unchanged 1-2 mm retrolisthesis L2 on L3. Vertebral body heights are normal. Again seen is mild disc height loss at L4-L5 with increased T2 signal of fluid intensity wit hout enhancement centrally within the disc space. There is a peripheral irregular thick marginal void signal intensity likely disc material which enhance on the postcontrast imaging as well as edema and enhancement in the surrounding paravertebral soft tissues suspicious for discitis. There is persiste nt increased T2 signal and enhancement and loss of T1 marrow fat signal in the immediately adjacent v ertebral bodies with associated endplate erosions evident on prior CT consistent with secondary osteo myelitis. There is unchanged moderate central canal stenosis at L4-L5 and throughout the level of L5 resulting from combination of increased epidural fat which is likely accentuated by reactive edema in the epidural fat. There is however no evident epidural abscess. No interval change in the chronic sp ondylosis throughout the remainder of the lumbar spine, moderate to severe at L5-S1 and mild at and a joan the level of L3-L4 which has been previously detailed. See report from 3 days prior for level by level analysis. The conus terminates at L1 with no abnormal cord signal. As previously detailed ther e is an atypical appearance of the nerve roots of the cauda equina clustered into a thick band extend ing obliquely along the right posterior aspect of the central canal suspicious for sequela of arachno iditis. There is no abnormal signal or enhancement along the nerve roots or other abnormal enhancing lesions. No other abnormal enhancing lesions identified. IMPRESSION: 1. Constellation of findings which remain concerning for L4-L5 discitis and associated osteomyelitis at both levels. No evident epidural abscess. 2. Abnormal configuration of the nerve roots in the cauda equina which extend as single thick oblique band at the right posterior aspect of the thecal sac consistent with arachnoiditis but without abnor mal signal or enhancement of the nerve roots. 3. Lumbar spondylosis, moderate to severe at L5-S1 and mild in the more cephalad lumbar spine. See pr ior report for level by level analysis. Reviewed, dictated and finalized at location A. IMPRESSION: 1. Constellation of findings which remain concerning for L4-L5 discitis and ass ociated osteomyelitis at both levels. No evident epidural abscess. 2. Abnormal configuration of the nerve roots in the cauda equina which extend a s single thick oblique band at the right posterior aspect of the thecal sac con sistent with arachnoiditis but without abnormal signal or enhancement of the ne rve roots. 3. Lumbar spondylosis, moderate to severe at L5-S1 and mild in the more cephala d lumbar spine. See prior report for level by level analysis.
--- NOTE | ~2025-03-18 | CT_ITS ---
EXAMINATION: CT thoracic lumbar wo con DATE: 03/19/2025 22:36 INDICATION: Low back pain and spasms TECHNIQUE: Computed tomography (CT) of the thoracic and lumbar spine was performed without intravenou s contrast. Automated exposure control and iterative reconstruction technique were employed. The dose -length product was 2331.75 mGy-cm. COMPARISON: None FINDINGS: THORACIC SPINE CT: Bone alignment is normal. Vertebral body heights are normal. No fracture. There is multilevel disc he ight loss, moderate to severe at C6-C7 and T9-T10, moderate at remaining levels from T3-T4 through T1 0-T11 and mild at C7-T1 through T2-T3 and T11-T12. There is multilevel thoracic facet osteoarthritis, severe bilaterally at several levels in the upper thoracic spine and on the left at T9-T10 and T11-T 12. Mild and moderate facet osteoarthritis throughout the remainder of the thoracic spine. This contr ibutes to moderate to severe neural foraminal stenosis on the right at T9-T10, moderate neural from s tenosis on the right at T10-T11 and on the left at T2-T3 and T8-T9 with mild neural from stenosis at many of the remaining thoracic levels. Mild respiratory motion, mild dependent atelectasis and minima l pulmonary edema in the visualized lungs. Calcified nodules in the right lung along with calcified r ight hilar and mediastinal lymph nodes consistent with old granulomatous disease. Status post left th yroidectomy with residual enlarged multinodular goiter at the right thyroid lobe. LUMBAR SPINE CT: 12 degrees lumbar levoscoliosis. Sagittal alignment is normal. Vertebral body heights are normal. Mounika morl's node along the superior endplate of L5. No fracture. Moderate disc height loss at L2-L3, mild to moderate disc height loss at L3-L4 and L4-L5 and moderate to severe disc height loss at L5-S1. Mod erate to severe osteoarthritis at the bilateral sacroiliac joints. Paravertebral soft tissues are unr emarkable. T12-L1: Mild posterior disc osteophyte complex There is moderate bilateral facet joint osteoarthritis . There is minimal bilateral neural foraminal stenosis. There is mild central canal stenosis. L1-L2: There is moderate right and mild to moderate left facet joint osteoarthritis. There is mild ri ght and minimal left neural foraminal stenosis. There is minimal central canal stenosis. L2-L3: Disc is bulging. There is moderate right and mild left facet joint osteoarthritis. There is mo derate bilateral neural foraminal stenosis. There is mild central canal stenosis. L3-L4: Disc is mildly bulging. There is severe bilateral facet joint osteoarthritis. There is mild to moderate bilateral neural foraminal stenosis. There is mild central canal stenosis. L4-L5: Posterior disc osteophyte complex. There is severe bilateral facet joint osteoarthritis. There is moderate bilateral neural foraminal stenosis. There is severe central canal stenosis due in part to epidural lipomatosis. L5-S1: Severe disc osteophyte complex. There is severe bilateral facet joint osteoarthritis. There is mild to moderate right and moderate to severe left neural foraminal stenosis. There is moderate cent ral canal stenosis. IMPRESSION: 1. Moderate to severe thoracic and lumbar spondylosis. No acute osseous adenopathy. Reviewed, dictated and finalized at location A. IMPRESSION: 1. Moderate to severe thoracic and lumbar spondylosis. No acute osseous adenopa thy.
--- NOTE | ~2025-03-18 | MR_ITS ---
EXAMINATION: MR lumbar spine wo con DATE: 03/21/2025 13:40 INDICATION: Weakness. Back pain. TECHNIQUE: Magnetic resonance imaging (MRI) of the lumbar spine was performed without intravenous con trast. Sequences included sagittal T2-weighted FSE, sagittal T2-weighted FS FSE, sagittal T1-weighted FSE, and axial T2-weighted FSE. COMPARISON: CT dated 03/19/2025 and MR dated 09/07/2015 FINDINGS: 10 degrees lumbar levocurvature. One-2 mm retrolisthesis L2 on L3. Vertebral body heights are normal. Significant increased T2 signal at the L4-L5 disc space. There is increased fluid signal and signifi cant loss of T1 marrow fat signal in the adjacent aspect of the inferior L4 and mid to superior L5 ve rtebral bodies. What on prior CT was felt to represent Schmorl's nodes along the endplates may repres ent endplate erosions in the setting of discitis surrounding marrow signal changes consistent with os teomyelitis. There appears to be mild edema in the immediately surrounding paravertebral soft tissues again raising concern for infection. Moderate to severe disc height loss at L5-S1, moderate disc hei ght loss at L2-L3 and mild disc height loss at L5-L4. The conus medullaris terminates at L1. There is normal signal in the caudal spinal cord. The nerve roots of the cauda equina are arranged along a co ntinuous band as opposed to dispersed peripherally is typical which suggests possible age-indetermina te arachnoiditis. There is some epidural lipomatosis in the caudal lumbar spine which contributes to central canal stenosis from be further detailed on a level by level basis below. There is some edema within the epidural fat centered at L4-L5 which could contribute to increased mass effect upon the th ecal sac. No evident epidural or paravertebral abscess. The following disc levels are specifically di scussed: T12-L1: Minimal left paracentral disc protrusion. There is moderate bilateral facet joint osteoarthri tis. There is minimal bilateral neural foraminal stenosis. There is minimal central canal stenosis. L1-L2: The disc does not extend beyond the endplate margin. There is moderate bilateral facet joint o steoarthritis. There is mild bilateral neural foraminal stenosis. There is no central canal stenosis. L2-L3: Disc is bulging with annular fissure. There is moderate right and mild left facet joint osteoa rthritis. There is moderate bilateral neural foraminal stenosis. There is mild central canal stenosis . L3-L4: Disc is mildly bulging. There is severe bilateral facet joint osteoarthritis. There is mild le ft and mild to moderate right neural foraminal stenosis. There is mild central canal stenosis. L4-L5: Disc is bulging with superimposed annular fissure and small central disc extrusion with disc m aterial extending couple millimeter cephalad and caudal to the level of the endplates. There is sever e bilateral facet joint osteoarthritis. There is moderate bilateral neural foraminal stenosis. There is moderate central canal stenosis due in part to increased epidural fat. L5-S1: Disc is bulging with superimposed annular fissure and central to left foraminal zone disc extr usion with disc material extending up to 4 mm caudal to the level of the superior endplate of S1. The re is severe bilateral facet joint osteoarthritis. There is moderate to severe left and mild to moder ate right neural foraminal stenosis. There is moderate to severe central canal stenosis at the level of the inferior endplate of L5, moderate at the level of the disc space also due in part to some incr eased epidural fat. IMPRESSION: 1. Prominent increased T2 disc signal and adjacent marrow signal changes at L4 and L5 with significan tly greater degree of T1 fat signal loss than expected particularly without evident sclerosis on the prior CT to account for the signal loss and with small endplate erosions and surrounding mild soft ti ssue edema raising a high level of concern for discitis and osteomyelitis. Dr. Del Toro discussed the se findings with Dr. Whitehead the neurosurgeon covering for the patient at 2:30 PM. 2. Moderate to severe lower lumbar predominant spondylosis. Reviewed, dictated and finalized at location A. IMPRESSION: 1. Prominent increased T2 disc signal and adjacent marrow signal changes at L4 and L5 with significantly greater degree of T1 fat signal loss than expected pa rticularly without evident sclerosis on the prior CT to account for the signal loss and with small endplate erosions and surrounding mild soft tissue edema ra ising a high level of concern for discitis and osteomyelitis. Dr. Del Toro disc ussed these findings with Dr. Whitehead the neurosurgeon covering for the patient a t 2:30 PM. 2. Moderate to severe lower lumbar predominant spondylosis.
--- NOTE | ~2025-03-18 | XR_ITS ---
EXAMINATION: XR chest 1V portable DATE: 03/24/2025 15:34 INDICATION: PICC line placement TECHNIQUE: frontal view of the chest was obtained. COMPARISON: Chest radiograph dated 03/18/2025 FINDINGS: Right upper extremity peripherally inserted central venous catheter (PICC) tip at the superior cavoa trial junction. Unchanged elevation of the right hemidiaphragm. Subtle increased interstitial pattern in the bilateral lower lung zones which could be due to mild pulmonary edema, atelectasis or pneumon ia. No pleural effusion or pneumothorax. Heart size is normal. Surgical clips the left neck consisten t with prior left thyroidectomy. Likely atherosclerotic carotid artery calcific lesions bilaterally a t the neck. IMPRESSION: 1. Right PICC line tip at the superior cavoatrial junction. 2. Mild interstitial pattern in the bilateral lower lung zones which could represent mild pulmonary e suzi, atelectasis or pneumonia. 3. Chronic elevation the right hemidiaphragm. Reviewed, dictated and finalized at location A. IMPRESSION: 1. Right PICC line tip at the superior cavoatrial junction. 2. Mild interstitial pattern in the bilateral lower lung zones which could repr esent mild pulmonary edema, atelectasis or pneumonia. 3. Chronic elevation the right hemidiaphragm.
--- NOTE | ~2025-03-18 | MR_ITS ---
EXAMINATION: MR thoracic spine wo con DATE: 03/21/2025 13:40 INDICATION: Back pain and weakness TECHNIQUE: Magnetic resonance imaging (MRI) of the thoracic spine was performed without intravenous c ontrast. Sagittal localizer T1-weighted FSE of the cervicothoracic spine was obtained. Thoracic spine sequences included sagittal T2-weighted FSE, sagittal T1-weighted SE, Sagittal T2-weighted FS FSE, a nd axial T2-weighted FSE. COMPARISON: None FINDINGS: Alignment is normal.Vertebral body heights are normal. Normal marrow signal.Moderate disc height loss at T3-T4 through T10-T11. Mild disc height loss at C7-T1 through T2-T3 and T11-T12. Small disc protr usions at T6-T7 through T9-T10 along with small amount of ossification along the posterior longitudin al ligament at the level of T9. This results in multilevel mild central canal stenosis at these level s. There is multilevel moderate to severe thoracic facet osteoarthritis which contributes to moderate to severe neural foraminal stenosis on the right at T9-T10, moderate neural foraminal stenosis on th e right at T8-T9 and T10-T11 and on the left at T2-T3 and T8-T9, T9-T10 and T11-T12.Mild neural from stenosis at several of the remaining thoracic levels. There is normal spinal cord signal. The conus t erminates at L1. Paravertebral soft tissues are unremarkable. IMPRESSION: 1. Moderate thoracic spondylosis. Reviewed, dictated and finalized at location A.
--- NOTE | ~2025-03-18 | XR_ITS ---
EXAMINATION: XR chest 2V DATE: 03/18/2025 08:30 INDICATION: Weakness. Inability to walk. Neuropathy. TECHNIQUE: frontal and lateral views of the chest were obtained. COMPARISON: Chest radiograph dated 02/19/2025 FINDINGS: Unchanged elevation of the right hemidiaphragm. Evaluation lungs and lateral projections suboptimal d ue to patient body habitus. No focal airspace opacities, pulmonary edema, pleural effusion or pneumot horax. Heart size is normal. Surgical clips at the left base of the neck suggestive of prior thyroide ctomy. IMPRESSION: 1. Unchanged elevation of the right hemidiaphragm. No acute cardiopulmonary disease. Reviewed, dictated and finalized at location A. IMPRESSION: 1. Unchanged elevation of the right hemidiaphragm. No acute cardiopulmonary dis ease.
--- NOTE | 2025-03-18 07:55 | ECG_ITS ---
Test Date: 2025-03-18 08:06:13 Measurements Intervals [employer] Rate: 93 P: 0 IA: 0 QRS: -45 QRSD: 122 T: 76 QT: 390 QTc: 487 Interpretive Statements ATRIAL FIBRILLATION LEFT ANTERIOR FASCICULAR BLOCK BASELINE ARTIFACT- I, III, AVL ABNORMAL ECG Compared to ECG 02/19/2025 16:23:54 NO SIGNIFICANT CHANGE Electronically Signed On 03-18-2025 08:24:28 CDT by Russell Mcclain D.O.
[2025-03-18 08:16] LABS: Hematocrit 41.1 % (42.0-52.0); Hemoglobin 12.7 g/dL (14.0-18.0); Immature Granulocyte Percent A 0.7 % (0-0.5); Lymphocytes Absolute Auto 0.44 K/mm3 (0.9-3.2); Mean Corpuscular HGB Conc 30.9 g/dl (32-36); Mean Corpuscular Hemoglobin 31.4 pg (26-34); Mean Corpuscular Volume 101.7 fl (80-100); Nucleated Red Blood Cells Absolute Auto 0.000 K/mm3 (0.0-0.012); Nucleated Red Blood Cells Perc 0.0 % (0.0-0.2); Platelet Count Result 211 k/mm3 (150-375); Red Blood Count 4.04 M/mm3 (4.6-6.20); White Blood Count 8.3 K/mm3 (4.5-10.0)
--- OUTSIDE RECORDS SUMMARY | 2025-03-18 08:20 | XMS_ITS | Clinical Summary ---
Author Organization [facility] [address] Address [address] [place] [address] Care Team Providers Care Financial Systems Analyst Name Role Phone Shagufta Khan MD Primary Care Provider [phone] Allergies Active Allergy Reactions Criticality Noted Date Comments Penicillins Unknown Low Childhood Medications hydrALAZINE (APRESOLINE) 100 mg tablet take 1 [...] mouth 3 (three) times a day Active gabapentin (NEURONTIN) 300 mg capsule 2 [...] A DAY 180 tablet 3 5 Active metoprolol XL (TOPROL-XL) 100 mg 24 hr tablet TAKE 1 TABLET DAILY 90 tablet 3 5 Active amLODIPine (NORVASC) 5 mg tablet Take 1 tablet (5 mg total) by mouth daily 5 02/24/20 Active levETIRAcetam (KEPPRA) 500 mg tablet Take 1 tablet (500 mg total) by mouth 2 (two) times a day for 8 doses 5 Active miconazole 2 % powder Apply topically 2 (two) times a day 5 Active polyethylene glycol (MIRALAX) 17 gram/dose bulk powderIndicatio ns:constipation Take 17 g by mouth daily for 14 days 5 Active metFORMIN XR (GLUCOPHAGE XR) 500 mg 24 hr tablet Take 2 tablets (1,000 mg total) by mouth 2 (two) times a day 5 Active metFORMIN (GLUCOPHAGE) 500 mg tablet take 2 Tablet (1000MG) by oral route 2 times every day with morning and evening meals 0 2 02/25/20 Discontinu ed(Alterna te therapy) furosemide (LASIX) 40 mg tabletIndicatio ns:Edema,hypert ension Take 1 tablet (40 mg total) by mouth daily 1 02/26/20 25 Discontinu ed(Stop Taking at Discharge) acetaminophen (TYLENOL) 325 mg tablet Take 2 tablets (650 mg total) by mouth every 6 (six) hours as needed for pain 02/26/20 Discontinu ed(Stop Taking at Discharge) amLODIPine (NORVASC) 10 mg tablet TAKE 1 TABLET DAILY 90 tablet 3 5 02/26/20 Discontinu ed(Stop Taking at Discharge) acetaminophen (TYLENOL) 325 mg tablet Take 2 tablets (650 mg total) by mouth every 6 (six) hours for 7 days 5 03/01/20 25 methocarbamoL (ROBAXIN) 500 mg tablet Take 1 tablet (500 mg total) by mouth 3 (three) times a day as needed for muscle spasms for up to 7 days 25 tablet 5 03/01/20 25 Active Problems Problem Noted Date Diagnosed Date Cervical spine fracture 02/23/2025 Assessment & Plan (02/25/2025 10:33 AM CDT): #C4 inf endplate fx and C7 Spinous Process Fracture, captured on CT 02/20 - 02/23 [facility] Consulted: - C spine xrays flexion/extension (02/24): completed, Fixed mild anterolisthesis of C4 on C5 - C-collar for comfort only - PT/OT - Follow up with Neurosurgery Spine in 4-6 weeks with flexion, extension, and neutral xrays of the cervical spine Subdural hemorrhage followin g injury without open intracranial wound and with no loss of consciousness 02/20/2025 Assessment & Plan (02/24/2025 2:36 PM CDT): - OSH read was chronic 8mm right-sided subdural hematoma without ship with possible new blood - Neurosurgery consulted - Repeat CT: Unchanged appearance of subacute mixed density left hemispheric subdural hematoma. No associated midline shift. - OU for q2h neuro checks, changed to q4h neuro checks and TTF on 02/20 - Keppra 500mg BID x7d - BI consult, PM&R - Do no not start antiplatelet or anticoagulation medication with the exception of DVT prophylaxis - Follow up with NSG in 4-6 weeks with a non-contrast head CT. Please hold your home Eliquis for 2 weeks. --> clarified with Dr. Solomon, do not restart until follow up with NSGY Acute pain of left shoulder 02/20/2025 Assessment & Plan (02/22/2025 1:10 PM CDT): 02/20: imaging without acute fracture; increased pain with movement per patient; lido patch to shoulder, pain mgt adjusted - Consider outpatient Ortho consult/ultrasound of shoulder for continued pain 02/22: Pt does not report pain Scalp laceration, initial encounter 02/20/2025 Assessment & Plan (02/25/2025 10:32 AM CDT): - Occipital laceration with mo placed at OSH on 02/19--> DC mo 7-10 days (02/23-02/26) - removed on 02/25 - Wound care with soap and water. Discharge planning issues 02/20/2025 Assessment & Plan (02/24/2025 1:36 PM CDT): - CM initial assessment - 02/20: serial neuro exams. Ok to TTF from OU - 02/22: [facility], awaiting auth for SundayFebruary 23 - 02/23 [facility] spine c/s pending, likely stable rehab - 02/24 [facility] spine rec Flex/Ex C spine X rays and C collar for comfort (F/U 0500 Xrays). Patient is medically stable for discharge, SW/CM updated. Discharge pending insurance authorization Treatment note completed Acute pain due to trauma 02/20/2025 Assessment & Plan (02/24/2025 1:38 PM CDT): - Tylenol sched - Robaxin PRN - Oxycodone PRN - Lidocaine patches Neuropathy 02/20/2025 Assessment & Plan (02/20/2025 4:56 PM CDT): - per patient, he's been falling d/t neuropathy - iris 300mg BID restarted Fall, initial encounter 02/19/2025 Assessment & Plan (02/20/2025 12:35 AM CDT): 02/19: Pt reported falling on Friday 02/16, and falling down stairs x4 02/19 because of peripheral neuropathy Chronic combined systolic and diastolic heart fa ilure 07/15/2024 Nonischemic cardiomyopathy 06/22/2023 Pulmonary HTN 09/22/2022 QT prolongation 04/18/2022 Assessment & Plan (02/24/2025 1:35 PM CDT): - QTc 469 with >35sec Q wave noted on EKG 2022 - 02/19: Pt started on home metoprolol S/P ablation of atrial fibrillation 12/15/2021 Chronic anticoagulation 09/23/2021 Atrial fibrillation 04/26/2021 Assessment & Plan (02/20/2025 4:51 PM CDT): - Home metoprolol adjusted on admission - Home eliquis reversed at OSH with PCC-will hold until follow up with NSG - 02/19: EKG with a flutter Assessment & Plan (10/06/2021 9:53 AM METALWORKER): With symptoms of exertional dyspnea/exercise intolerance, attempted [...] 09/18/2019 Assessment & Plan (10/06/2021 9:52 AM METALWORKER): Hx of diastolic dysfunction, mild leg swelling at baseline (also in setting of BMi 47, HTN) -Continue home telmisartan 80 mg every day, metoprol 150 mg BID, amlodipine 10 qdaily, chlorthalidone 25 qdaily and hydralazine at dc Coronary artery disease invo lving [place] coronary artery of [place] heart without angina pectoris 12/28/2017 Assessment & Plan (02/20/2025 4:48 PM CDT): - Home statin continued Assessment & Plan (10/06/2021 9:51 AM METALWORKER): -Continue home metoprolol/statin/telmisartan Morbid obesity with BMI of 45.0-49.9, adult 06/14 Disease of thyroid gland 01/02/2017 Overview (01/05/2017): Enlarged thyroid Diffuse goiter 01/02/2017 Overview (01/05/2017): Goiter diffuse Body mass index 40+ - severely obese 06/27/2016 Overview (11/17/2016): Morbid obesity with BMI of 45.0-49.9, adult Mixed diabetic hyperlipidemi a associated with type 2 diabetes mellitus ([facility]) 06/27/2016 Overview (11/17/2016): 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 ([facility]) 01/04/2016 Overview (11/17/2016): DM (diabetes mellitus), secondary, with neurologic complications Assessment & Plan (02/24/2025 1:32 PM CDT): - On Metformin, januvia, glimiepride at home - A1C 5.8 - SSI, accu-checks while inpatient - CC diet - Follow Up PCP Assessment & Plan (10/06/2021 9:50 AM METALWORKER): -Continue home januvia 100 qS, metformin 1G BID, glimepiride at discharge ANTONIO on CPAP 07/06/2015 Overview (11/17/2016): ANTONIO on CPAP Assessment & Plan (02/23/2025 9:32 AM CDT): - CPAP ordered Assessment & Plan (10/06/2021 9:51 AM METALWORKER): -Use CPAP while sleeping Hypertensive heart disease with congestive heart failure 11/24/2014 Overview (11/17/2016): Congestive heart failure, unspecified Assessment & Plan (02/23/2025 9:33 AM CDT): - Home amlodipine, chlorthalidone, clonidine, lasix, hydralazine, metoprolol succinate, jardiance, entresto - 02/20: amlodipine, entresto, jardiance, metoprolol tartrate started. - Monitor BP and restart other medications as needed. Muscle pain 03/11/2014 Overview (11/17/2016): Myalgia Encounters Date Type Department Care Team Description 02/26/2025 Telephone [facility] Neurosurgery [address] [place] [address] Cony Zimmer MD 02/19/2025 6:32 PM CDT - 02/25/2025 2:15 PM CDT Hospital Encounter [facility] [address] [place] [id number] Adrian Pizarro MD Kipfer, Savannah Christine, DO Fall, initial encounter (Primary Dx); Head injury, initial encounter; Subdural hematoma (HCC); Traumatic subdural hemorrhage without open intracranial wound and without loss of consciousness, initial encounter (HCC); Closed fracture of cervical vertebra, unspecified cervical vertebral level, initial encounter (HCC); Scalp laceration, initial encounter Discharge Disposition: Discharge to an Rehab facility 02/10/2025 Telephone [facility] Medical [facility] Cardiology [address] [place] [address] Tone Cummins MD 02/05/2025 11:30 AM CDT Office Visit [facility] Neuro Muscle [address] [place] [address] [place] [address] aYsemin Choudhary MD PhD 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 from Last 3 Months Immunizations Immunization Administration Dates Next Due Influenza, Unspecified 04/13/2021 Tdap 02/19/2025() Surgical History Surgery Date Site/Laterality Comments OTHER [...] disease) of knee Cataract 2020 Heart disease 2013 Family History Medical History [...] more drinks on one occasion? Weekly 11/08/2021 Personal Safety Answer Date Recorded Have you ever been in or are you currently in a harmful physical or emotional relationship or is someone making you feel afraid or unsafe? 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 file Not on file Not on file Obstetrics History Last Filed Vital Signs Vital Sign Reading Time Taken Comments Blood Pressure 117/98 02/25/2025 11:18 AM CDT Pulse 104 02/25/2025 11:18 AM CDT Temperature 36.5 C (97.7 F) 02/25/2025 11:18 AM CDT Respiratory Rate 17 02/25/2025 11:1 8 AM CDT Oxygen Saturation 95% 02/25/2025 11: 18 AM CDT Inhaled Oxygen Concentration - - Weight 149.1 kg (328 lb 11.3 oz) 2024 12:19 AM CDT Height 185.4 cm (6' 1) 02/20/2025 12:1 9 AM CDT Body Mass Index 43.37 02/20/2025 12:19 AM CDT Plan of Treatment Health Maintenance Due Date Last Done Comments Albumin Creatinine Ratio, Urine 1946 Depression Screening 1945 Dilated Eye Exam 1946 Foot Exam 1946 Hepatitis B Screening 1964 Zoster Vaccine (1 of 2) 1996 Abdominal Aortic Aneurysm (A AA) Screen 2011 Well Visit 65+ 2011 DTaP/Tdap/Td Vaccine (2 - Td or Tdap) 02/08/2020 02/07/2010, 08/13/2009 Pneumococcal vaccine 65+ (3 of 3 - PCV20 or PCV21) 05/03/2021 05/03/2016, 08/13/2015, 05/19/2010 Covid-19 Vaccine (2023-2 5 season) 2024 06/09/2021, 11/01/2020, 09/30/2020 Influenza Vaccine (#1) 2025 , 03/31/2021, 04/28/2020, Additional history exists Hemoglobin A1C 2025 02/20/2025 Lipid Panel 02/19/2026 02/19/2025, 06/13, 03/03/2024, Additional history exists eGFR 02/22/2026 02/22/2025, 02/10, 02/20/2025, Additional history exists Fall Risk Assessment 02/25/2026 02/25/2025 Hepatitis C Screening Completed 04/27/2023 Medical Devices Implanted Type Area Punch Operator Device Identifier Shelf Expiration Date Model / Serial / Lot Vascade Mvp 6-12fr Venous Closure - [id number] Implanted:Qty: 1 on 10/05/2021 by Luis Tran MD at [facility] Collagen Right: Femoral [employer] 06/27/2023 800-612C -[id number] / / [id number] Description:vein Vascade Mvp 6-12fr Venous Closure - [id number] - [id number] Implanted:Qty: 1 on 10/05/2021 by Luis Tran MD at [facility] Collagen Left: Femoral [employer] 06/27/2023 800-612C -[id number] / [id number] / [id number] Description:vein Vascade Mvp 6-12fr Venous Closure - [id number] Implanted:Qty: 1 on 10/05/2021 by Luis Tran MD at [facility] Collagen Right: Femoral [employer] 06/27/2023 800-612C -[id number] / / [id number] Description:vein Other - See Comments Other - see comments Knee Description:Bilateral knee r eplacements Other - See Comments Other - see comments Left: Knee Other - See Comments Other - see comments Right: Knee Procedures Procedure Name Priority Date/Time Associated Diagnosis Comments POCT GLUCOSE DEVICE Routine 02/25/2025 1 1:18 AM CDT LA REMOVAL SUTURES/MO NOT REQUIRING ANESTHESIA Routine 02/25/2025 10:30 AM CDT Scalp laceration, initial encounter POCT GLUCOSE DEVICE Routine 02/25/2025 7 :28 AM CDT POCT GLUCOSE DEVICE Routine 02/24/2025 8 :08 PM CDT POCT GLUCOSE DEVICE Routine 02/24/2025 5 :33 PM CDT POCT GLUCOSE DEVICE Routine 02/24/2025 1 1:21 AM CDT XR SPINE CERVICAL FLEXION AND EXTENSION 2 VIEWS IP Routine 02/24/2025 10:58 AM CDT POCT GLUCOSE DEVICE Routine 02/24/2025 7 :42 AM CDT POCT GLUCOSE DEVICE Routine 02/23/2025 8 :53 PM CDT POCT GLUCOSE DEVICE Routine 02/23/2025 6 :06 PM CDT POCT GLUCOSE DEVICE Routine 02/23/2025 1 2:34 PM CDT POCT GLUCOSE DEVICE Routine 02/23/2025 8 :32 AM CDT POCT GLUCOSE DEVICE Routine 02/23/2025 4 :24 AM CDT POCT GLUCOSE DEVICE Routine 02/22/2025 1 1:22 PM CDT EGFR Timed 02/22/2025 9:32 PM CDT DIFFERENTIAL AUTO Timed 02/22/2025 9:3 2 PM CDT CBC WITH AUTO DIFFERENTIAL Timed 02/22/2025 9:32 PM CDT BASIC METABOLIC PANEL Timed 02/22/2025 9:32 PM CDT MAGNESIUM Timed 02/22/2025 9:32 PM CDT PHOSPHORUS Timed 02/22/2025 9:32 PM CDT POCT GLUCOSE DEVICE Routine 02/22/2025 8 :39 PM CDT POCT GLUCOSE DEVICE Routine 02/22/2025 5 :34 PM CDT POCT GLUCOSE DEVICE Routine 02/22/2025 1 1:40 AM CDT POCT GLUCOSE DEVICE Routine 02/22/2025 7 :53 AM CDT POCT GLUCOSE DEVICE Routine 02/22/2025 7 :06 AM CDT POCT GLUCOSE DEVICE Routine 02/22/2025 6 :30 AM CDT POCT GLUCOSE DEVICE Routine 02/22/2025 4 :31 AM CDT POCT GLUCOSE DEVICE Routine 02/22/2025 1 2:03 AM CDT POCT GLUCOSE DEVICE Routine 02/21/2025 8 :32 PM CDT EGFR Timed 02/21/2025 7:10 PM CDT DIFFERENTIAL AUTO Timed 02/21/2025 7:1 0 PM CDT CBC WITH AUTO DIFFERENTIAL Timed 02/21/2025 7:10 PM CDT BASIC METABOLIC PANEL Timed 02/21/2025 7:10 PM CDT MAGNESIUM Timed 02/21/2025 7:10 PM CDT PHOSPHORUS Timed 02/21/2025 7:10 PM CDT POCT GLUCOSE DEVICE Routine 02/21/2025 4 :44 PM CDT POCT GLUCOSE DEVICE Routine 02/21/2025 1 2:11 PM CDT POCT GLUCOSE DEVICE Routine 02/21/2025 8 :27 AM CDT POCT GLUCOSE DEVICE Routine 02/20/2025 9 :08 PM CDT EGFR Timed 02/20/2025 7:04 PM CDT DIFFERENTIAL AUTO Timed 02/20/2025 7:0 4 PM CDT HEMOGLOBIN A1C Routine 02/20/2025 7:04 PM CDT CBC WITH AUTO DIFFERENTIAL Timed 02/20/2025 7:04 PM CDT BASIC METABOLIC PANEL Timed 02/20/2025 7:04 PM CDT MAGNESIUM Timed 02/20/2025 7:04 PM CDT PHOSPHORUS Timed 02/20/2025 7:04 PM CDT XR SHOULDER LEFT 2 OR MORE VIEWS IP Routine 02/20/2025 12:32 PM CDT POCT GLUCOSE DEVICE Routine 02/20/2025 1 2:12 PM CDT POCT GLUCOSE DEVICE Routine 02/20/2025 7 :50 AM CDT DRUGS OF ABUSE SCREEN, URINE WITH REFLEX CONFIRMATION Routine 02/20/2025 4:[address] HEAD AND CERVICAL SPINE WO CONTRAST Timed 02/20/2025 4:34 AM CDT POCT GLUCOSE DEVICE Routine 02/20/2025 1 2:34 AM CDT ECG 12-LEAD STAT 02/19/2025 11:26 PM CDT LIPID PANEL STAT 02/19/2025 11:16 PM CDT ALBUMIN STAT 02/19/2025 11:16 PM CDT EGFR STAT 02/19/2025 11:16 PM CDT BASIC METABOLIC PANEL STAT 02/19/2025 11:16 PM CDT POCT GLUCOSE DEVICE Routine 02/19/2025 9 :45 PM CDT LA CRITICAL CARE ILL/INJURED PATIENT INIT 30-74 MIN Routine 02/19/2025 9:14 PM CDT B CHECK SAMPLE STAT 02/19/2025 7:[address] OUTSIDE CONSULT Routine 025 7:[address] BODY OUTSIDE CONSULT Routine 02/20/20 25 7:17 PM CDT XR TRANSFER OF OUTSIDE FILMS Routine 02/19/2025 7:15 PM CDT POC BLOOD GAS AND CHEMISTRIES, VENOUS Routine 02/19/2025 6:43 PM CDT THROMBOELASTOMETRY PANEL - HEPARIN Routine 02/19/2025 6:43 PM CDT THROMBOELASTOMETRY PANEL - INTRINSIC Routine 02/19/2025 6:43 PM CDT THROMBOELASTOMETRY PANEL - EXTRINSIC Routine 02/19/2025 6:43 PM CDT THROMBOELASTOMETRY PANEL - FIBRINOGEN Routine 02/19/2025 6:43 PM CDT DIFFERENTIAL AUTO Routine 02/19/2025 6:4 3 PM CDT THROMBOELASTOMETRY PANEL Routine 025 6:43 PM CDT PROTIME-INR Routine 02/19/2025 6:43 PM CDT APTT Routine 02/19/2025 6:43 PM CDT ETHANOL Routine 02/19/2025 6:43 PM CDT CBC WITH AUTO DIFFERENTIAL Routine 02/19/2025 6:43 PM CDT TYPE AND SCREEN Timed 02/19/2025 6:43 PM CDT HEPATITIS PANEL, ACUTE Routine 11:14 AM CDT Interstitial pulmonary disease (HCC) from Last 3 Months or Most Recently Relevant to Health Maintenance Results * POCT glucose (02/25/2025 11:18 AM CDT) Glucose, POC 194 70 - 199 mg/dL Blood 02/25/2025 11:1 8 AM CDT 02/25/2025 11:18 AM CDT us Ellyn Gomez DO LAB POCT ORDERABLES - DEVICE Final Result [facility] [place] [address] * LA REMOVAL SUTURES/MO NOT REQUIRING ANESTHESIA (02/25/2025 10:30 AM CDT) Narrative Reema Kemp NP - 02/25/2025 10:30 AM CDT Reema Kemp NP 02/25/2025 10:31 AM Suture Removal Date/Time: 02/25/2025 10:30 AM Performed by: Reema Kemp NP Authorized by: Reema Kemp NP To generate suggested charges, all areas highlighted in orange must be documented. If there are no orange regions, a default charge will not be suggested. The procedure documentation in the form should sufficiently describe the procedure performed. Lab orders must be placed in the Orders section of the visit taskbar.: Location: Body area: Head/neck Location details: Scalp Location details: Scalp Location details: Scalp Location details: Scalp Location details: Scalp Procedure details: Wound appearance: Clean Mo removed: Yes Mo removed: 9 Suture and/or mo initally placed by: Not myself or within my group Post-procedure assessment: open to air. patient tolerated the procedure well with no immediate complications All procedure needles, sponges and other items accounted for: Yes Reema Kemp NP IN CLINIC/BEDSIDE ORDERAB LES Final Result * POCT glucose (02/25/2025 7:28 AM CDT) Glucose, POC 141 70 - 199 mg/dL Blood 02/25/2025 7:28 AM CDT 02/25/2025 7:28 AM CDT [facility]lena [facility] DO LAB POCT ORDERABLES - DEVICE Final Result Performing Organization Address [facility]/ZIP Co de Phone Number [facility] [place] [employer] [place] [address] * POCT glucose (02/24/2025 8:08 PM CDT) Glucose, POC 197 70 - 199 mg/dL Blood 02/24/2025 8:08 PM CDT 02/24/2025 8:08 PM CDT [facility] Olena Gomez DO LAB POCT ORDERABLES - DEVICE Final Result COLETTE [facility] [place] [address] * POCT glucose (02/24/2025 5:33 PM CDT) Glucose, POC 137 70 - 199 mg/dL Blood 02/24/2025 5:33 PM CDT 02/24/2025 5:33 PM CDT Ellyn Gomez DO LAB POCT ORDERABLES - DEVICE Final Result Performing Organization Address City/State/[facility] Co de Phone Number COLETTE YAN [facility] [place] [address] * POCT glucose (02/24/2025 11:21 AM CDT) Glucose, POC 179 70 - 199 mg/dL Blood 02/24/2025 11:2 1 AM CDT 02/24/2025 11:21 AM CDT Ellyn Olena Gomez DO LAB POCT ORDERABLES - DEVICE Final Result Performing Organization Address [facility] de Phone Number COLETTE [facility] [place] [address] * XR Spine Cervical Flexion and Extension 2 or 3 Views (02/24/2025 10:58 AM CDT) Anatomical Region Laterality Modality Spine N/A Computed Radiogr aphy 02/24/2025 5:55 PM CDT Impressions 02/24/2025 10:47 PM CDT 1. Moderate multilevel degenerative disc disease, greatest at C6-C7. 2. Previously described suspected C4 posterior osteophyte fracture is not well seen on this examination. 3. Fixed mild anterolisthesis of C4 on C5. Dictated by: Kirby El MD The radiology attending physician has personally reviewed this study, and had reviewed and/or edited this written report and agrees with it. Electronically signed by: Micheal Campbell M.D. Narrative 02/24/2025 10:47 PM CDT EXAMINATION: XR SPINE CERVICAL FLEXION AND EXTENSION 2 OR 3 VIEWS HISTORY: Concern for cervical spine fracture FINDINGS: 3 views of the cervical spine is submitted for interpretation, with comparison CT dated 02/20/2025. The previously queried posterior C4 osteophyte fracture is not apparent on this examination. There is fixed minimal anterolisthesis of C4 on C5,, unchanged on flexion and extension. Is multilevel degenerative disc disease, greatest and moderate at C6 and C7, which is partially obscured by overlying soft tissue. Surgical clips are seen in the lower neck. Procedure Note Micheal Campbell MD - 02/24/2025 EXAMINATION: XR SPINE CERVICAL FLEXION AND EXTENSION 2 OR 3 VIEWS HISTORY: Concern for cervical spine fracture FINDINGS: 3 views of the cervical spine is submitted for interpretation, with comparison CT dated 02/20/2025. The previously queried posterior C4 osteophyte fracture is not apparent on this examination. There is fixed minimal anterolisthesis of C4 on C5,, unchanged on flexion and extension. Is multilevel degenerative disc disease, greatest and moderate at C6 and C7, which is partially obscured by overlying soft tissue. Surgical clips are seen in the lower neck. IMPRESSION: 1. Moderate multilevel degenerative disc disease, greatest at C6-C7. 2. Previously described suspected C4 posterior osteophyte fracture is not well seen on this examination. 3. Fixed mild anterolisthesis of C4 on C5. Dictated by: Kirby El MD The radiology attending physician has personally reviewed this study, and had reviewed and/or edited this written report and agrees with it. Electronically signed by: Micheal Campbell M.D. Reema Kemp RESEARCH PROFESSOR IMG XR PROCEDURES Final R esult * POCT glucose (02/24/2025 7:42 AM CDT) Glucose, POC 128 70 - 199 mg/dL Blood 02/24/2025 7:42 AM CDT 02/24/2025 7:42 AM CDT Ellyn Gomez DO LAB POCT ORDERABLES - DEVICE Final Result COLETTE YAN [facility] [place] [address] * POCT glucose (02/23/2025 8:53 PM CDT) Glucose, POC 152 70 - 199 mg/dL Blood 02/23/2025 8:53 PM CDT 02/23/2025 8:53 PM CDT [facility] Olena [employer] POCT ORDERABLES - DEVICE Final Result Performing Organization Address [facility] Co de Phone Number [facility] [place] [address] * POCT glucose (02/23/2025 6:06 PM CDT) Glucose, POC 168 70 - 199 mg/dL Comment:Glu2: Follow Protoco l Blood 02/23/2025 6:06 PM CDT 02/23/2025 6:06 PM CDT [facility] [employer] POCT ORDERABLES - DEVICE Final Result Performing Organization Address [facility] Co de Phone Number [facility] [place] [address] * POCT glucose (02/23/2025 12:34 PM CDT) Glucose, POC 123 70 - 199 mg/dL Comment:Glu2: RN/ Notified Glucose comment 1 Glu2: RN/MD Notified [facility] Blood 02/23/2025 12:3 4 PM CDT 02/23/2025 12:34 PM CDT [facility] Olena [employer] POCT ORDERABLES - DEVICE Final Result Performing Organization Address [facility] Co de Phone Number [facility] [place] [address] * POCT glucose (02/23/2025 8:32 AM CDT) Glucose, POC 125 70 - 199 mg/dL Comment:Glu2: RN/MD Notified Glucose comment 1 Glu2: RN/MD Notified [facility] Blood 02/23/2025 8:32 AM CDT 02/23/2025 8:32 AM CDT [facility] Olena [employer] LAB POCT ORDERABLES - DEVICE Final Result Performing Organization Address [facility] de Phone Number [facility] [place] [place] [address] * POCT glucose (02/23/2025 4:24 AM CDT) Glucose, POC 114 70 - 199 mg/dL Blood 02/23/2025 4:24 AM CDT 02/23/2025 4:24 AM CDT [facility] [employer] POCT ORDERABLES - DEVICE Final Result Performing Organization Address [facility] de Phone Number [facility] [place] [address] * POCT glucose (02/22/2025 11:22 PM CDT) [facility] Glucose, POC 119 70 - 199 mg/dL Blood 02/22/2025 11:2 2 PM CDT 02/22/2025 11:22 PM CDT [facility] [employer] POCT ORDERABLES - DEVICE Final Result Performing Organization Address [facility] de Phone Number [facility] [place] [place] [address] * (ABNORMAL) eGFR (02/22/2025 9:32 PM CDT) [facility] eGFR 42(L) >=60 mL/min/1. 73 m2 Comment: Interpretive Data [...] of Race in Diagnosing Kidney Disease, JASN 202). The CKD-EPI equation should not be used for patients with unstable renal function and has not been validated in children and those over 70. Current interpretive data was last reviewed 2021. Blood 02/22/2025 9:32 PM CDT 02/22/2025 11:49 PM CDT us Ellyn Gomez DO LAB BLOOD ORDERABLE S Final Result [facility] [place] [address] * (ABNORMAL) Differential, auto (02/22/2025 9:32 PM CDT) Neutrophil abs 4.00 1.50 - 6.50 K/cumm Imm gran abs 0.02 0.00 - 0.10 K/cumm [facility] Lymphocyte abs 0.50(L) 0.80 - 3.30 K/cumm [facility] Monocyte abs 0.56 0.20 - 0.80 K/cumm [facility] Eosinophil abs 0.09 0.00 - 0.50 K/cumm [facility] Basophil abs 0.02 0.00 - 0.10 K/cumm [facility] Neutrophil pct 77.1 % [facility] Comment: Interpretive Data Percent cell count reference ranges are not reported, since discordance with absolute values may lead to misinterpretation of CBC data. Current Interpretive Data was last revised on 2017. Imm gran pct 0.4 % [facility] Comment: Interpretive Data Percent cell count reference ranges are not reported, since discordance with absolute values may lead to misinterpretation of CBC data. Current Interpretive Data was last revised on 2017. Lymphocyte pct 9.6 % [facility] Comment: Interpretive Data Percent cell count reference ranges are not reported, since discordance with absolute values may lead to misinterpretation of CBC data. Current Interpretive Data was last revised on 2017. Monocyte pct 10.8 % [facility] Comment: Interpretive Data Percent cell count reference ranges are not reported, since discordance with absolute values may lead to misinterpretation of CBC data. Current Interpretive Data was last revised on 2017. Eosinophil pct 1.7 % [facility] Comment: Interpretive Data Percent cell count reference ranges are not reported, since discordance with absolute values may lead to misinterpretation of CBC data. Current Interpretive Data was last revised on 2017. Basophil pct 0.4 % [facility] Comment: Interpretive Data Percent cell count reference ranges are not reported, since discordance with absolute values may lead to misinterpretation of CBC data. Current Interpretive Data was last revised on 2017. Blood 02/22/2025 9:32 PM CDT 02/22/2025 10:43 PM CDT Ellyn Gomez DO LAB BLOOD ORDERABLE S Final Result [facility] [place] [address] * (ABNORMAL) CBC with auto differential (02/22/2025 9:32 PM CDT) WBC 5.19 3.80 - 9.90 K/cumm Hgb 14.2 13.0 - 17.5 g/dL [facility] Hct 43.9 38.9 - 50.3 % [facility] Plt 176 150 - 400 K/cumm [facility] MPV 10.9 9.1 - 12.3 fL [facility] RBC 4.43 4.30 - 5.80 M/cumm [facility] MCV 99.1(H) 81.3 - 96.4 fL [facility] MCH 32.1 27.1 - 33.3 pg [facility] MCHC 32.3 32.3 - 35.7 g/dL [facility] RDW CV 15.1(H) 11.1 - 14.9 % [facility] RDW SD 55.1(H) 35.7 - 48.1 fL [facility] NRBC abs 0.00 0.00 - 0.01 K/cumm [facility] Blood 02/22/2025 9:32 PM CDT 02/22/2025 10:43 PM CDT [facility] BLOOD ORDERABLE S Final Result [facility] [place] [address] * Phosphorus (02/22/2025 9:32 PM CDT) Phosphorus, pl 3.9 2.3 - 4.5 mg/dL Blood 02/22/2025 9:32 PM CDT 02/22/2025 11:49 PM CDT [facility] BLOOD ORDERABLE S Final Result Performing Organization Address [facility] Co de Phone Number [facility] [place] [address] * Magnesium (02/22/2025 9:32 PM CDT) Magnesium 2.1 1.4 - 2.5 mg/dL Blood 02/22/2025 9:32 PM CDT 02/22/2025 11:49 PM CDT [facility] LAB BLOOD ORDERABLE S Final Result [facility] [place] [address] * (ABNORMAL) Basic metabolic panel (02/22/2025 9:32 PM CDT) Pathologist [facility] Sodium 140 135 - 145 mmol/L Potassium, pl 4.8 3.3 - 4.9 mmol/L [facility] Chloride 104 97 - 110 mmol/L [facility] CO2 26 22 - 32 mmol/L [facility] Anion gap 10 2 - 15 mmol/L [facility] BUN 31(H) 6 - 25 mg/dL [facility] Creatinine 1.66(H) 0.80 - 1.30 mg/dL [facility] Glucose 165 70 - 199 mg/dL [facility] Comment: Interpretive Data Fasting glucose >/= 126 mg/dl is diagnostic for diabetes. Fasting is defined as no caloric intake for at least 8 hours. Fasting glucose between 100 mg/dl to 125 mg/dl is diagnostic of prediabetes. In a patient with classic symptoms of hyperglycemia or hyperglycemic crisis, a random glucose >/= 200 mg/dl is diagnostic for diabetes. In the absence of unequivocal hyperglycemia, results should be confirmed by repeat testing. The classification and Diagnosis of Diabetes Diabetes Care 2021; 46: S19-S40. Current interpretive data was last revised 2022. Calcium 9.1 8.5 - 10.3 mg/dL [facility] Blood 02/22/2025 9:32 PM CDT 02/22/2025 11:49 PM CDT Ellyn Gomez DO LAB BLOOD ORDERABLE S Final Result [facility] [place] [address] * (ABNORMAL) POCT glucose (02/22/2025 8:39 PM CDT) Pathologist [facility] Glucose, POC 245(H) 70 - 199 mg/dL Blood 02/22/2025 8:39 PM CDT 02/22/2025 8:39 PM CDT Ellynmagui Gomez DO LAB POCT ORDERABLES - DEVICE Final Result Performing Organization Address [facility] Co de Phone Number [facility] [place] [address] * POCT glucose (02/22/2025 5:34 PM CDT) Glucose, POC 141 70 - 199 mg/dL Blood 02/22/2025 5:34 PM CDT 02/22/2025 5:34 PM CDT Ellyn Gomez DO LAB POCT ORDERABLES - DEVICE Final Result Performing Organization Address [facility] [place] [address] * POCT glucose (02/22/2025 11:40 AM CDT) Glucose, POC 137 70 - 199 mg/dL Blood 02/22/2025 11:4 0 AM CDT 02/22/2025 11:40 AM CDT Ellyn Olena Gomez DO LAB POCT ORDERABLES - DEVICE Final Result Performing Organization Address [facility] Co de Phone Number [facility] [place] [place] [address] * POCT glucose (02/22/2025 7:53 AM CDT) Glucose, POC 113 70 - 199 mg/dL Blood 02/22/2025 7:53 AM CDT 02/22/2025 7:53 AM CDT Ellyn Gomez DO LAB POCT ORDERABLES - DEVICE Final Result Performing Organization Address City/[facility]/ZIP Co de Phone Number [facility] [place] [address] * POCT glucose (02/22/2025 7:06 AM CDT) Glucose, POC 102 70 - 199 mg/dL Blood 02/22/2025 7:06 AM CDT 02/22/2025 7:06 AM CDT [facility] Olena [employer] DO LAB POCT ORDERABLES - DEVICE Final Result Performing Organization Address City/[facility] Co de Phone Number [facility] [place] [address] * POCT glucose (02/22/2025 6:30 AM CDT) Glucose, POC 101 70 - 199 mg/dL Blood 02/22/2025 6:30 AM CDT 02/22/2025 6:30 AM CDT [facility] [employer] POCT ORDERABLES - DEVICE Final Result Performing Organization Address [facility] de Phone Number [facility] [place] [address] * POCT glucose (02/22/2025 4:31 AM CDT) Glucose, POC 103 70 - 199 mg/dL Blood 02/22/2025 4:31 AM CDT 02/22/2025 4:31 AM CDT [facility] Olena [employer] POCT ORDERABLES - DEVICE Final Result Performing Organization Address [facility] de Phone Number [facility] [place] [place] [address] * POCT glucose (02/22/2025 12:03 AM CDT) Glucose, POC 122 70 - 199 mg/dL Blood 02/22/2025 12:0 3 AM CDT 02/22/2025 12:03 AM CDT Ellyn Olena [employer] DO LAB POCT ORDERABLES - DEVICE Final Result Performing Organization Address City/[facility] Co de Phone Number COLETTE [facility] [place] [address] * POCT glucose (02/21/2025 8:32 PM CDT) Glucose, POC 158 70 - 199 mg/dL Blood 02/21/2025 8:32 PM CDT 02/21/2025 8:32 PM CDT Ellyn Olena [employer] LAB POCT ORDERABLES - DEVICE Final Result Performing Organization Address [facility] de Phone Number [facility] [place] [address] * (ABNORMAL) eGFR (02/21/2025 7:10 PM CDT) eGFR 39(L) >=60 mL/min/1. 73 m2 Comment: Interpretive Data [...] interpretive data was last reviewed 2021. Blood 02/21/2025 7:10 PM CDT 02/21/2025 8:39 PM CDT Ellyn Gomez DO LAB BLOOD ORDERABLE S Final Result [facility] [place] [address] * (ABNORMAL) Differential, auto (02/21/2025 7:10 PM CDT) Pathologist [facility] Neutrophil abs 3.69 1.50 - 6.50 K/cumm Imm gran abs 0.03 0.00 - 0.10 K/cumm [facility] Lymphocyte abs 0.64(L) 0.80 - 3.30 K/cumm [facility] Monocyte abs 0.67 0.20 - 0.80 K/cumm [facility] Eosinophil abs 0.10 0.00 - 0.50 K/cumm [facility] Basophil abs 0.01 0.00 - 0.10 K/cumm [facility] Neutrophil pct 71.8 % [facility] Comment: Interpretive Data Percent cell count reference ranges are not reported, since discordance with absolute values may lead to misinterpretation of CBC data. Current Interpretive Data was last revised on 2017. Imm gran pct 0.6 % [facility] Comment: Interpretive Data Percent cell count reference ranges are not reported, since discordance with absolute values may lead to misinterpretation of CBC data. Current Interpretive Data was last revised on 2017. Lymphocyte pct 12.5 % [facility] Comment: Interpretive Data Percent cell count reference ranges are not reported, since discordance with absolute values may lead to misinterpretation of CBC data. Current Interpretive Data was last revised on 2017. Monocyte pct 13.0 % [facility] Comment: Interpretive Data Percent cell count reference ranges are not reported, since discordance with absolute values may lead to misinterpretation of CBC data. Current Interpretive Data was last revised on 2017. Eosinophil pct 1.9 % [facility] Comment: Interpretive Data Percent cell count reference ranges are not reported, since discordance with absolute values may lead to misinterpretation of CBC data. Current Interpretive Data was last revised on 2017. Basophil pct 0.2 % [facility] Comment: Interpretive Data Percent cell count reference ranges are not reported, since discordance with absolute values may lead to misinterpretation of CBC data. Current Interpretive Data was last revised on 2017. Blood 02/21/2025 7:10 PM CDT 02/21/2025 8:40 PM CDT [facility] [employer] LAB BLOOD ORDERABLE S Final Result [facility] [place] [address] * (ABNORMAL) CBC with auto differential (02/21/2025 7:10 PM CDT) WBC 5.14 3.80 - 9.90 K/cumm Hgb 12.9(L) 13.0 - 17.5 g/dL [facility] Hct 40.7 38.9 - 50.3 % [facility] Plt 183 150 - 400 K/cumm [facility] MPV 11.6 9.1 - 12.3 fL [facility] RBC 4.04(L) 4.30 - 5.80 M/cumm [facility] MCV 100.7(H) 81.3 - 96.4 fL [facility] MCH 31.9 27.1 - 33.3 pg [facility] MCHC 31.7(L) 32.3 - 35.7 g/dL [facility] RDW CV 15.4(H) 11.1 - 14.9 % [facility] RDW SD 57.3(H) 35.7 - 48.1 fL [facility] NRBC abs 0.00 0.00 - 0.01 K/cumm [facility] Blood 02/21/2025 7:10 PM CDT 02/21/2025 8:40 PM CDT [facility] [employer] LAB BLOOD ORDERABLE S Final Result Performing Organization Address City/[facility]/ZIP Co de Phone Number [facility] [place] [address] * Phosphorus (02/21/2025 7:10 PM CDT) [facility] Phosphorus, pl 4.0 2.3 - 4.5 mg/dL Blood 02/21/2025 7:10 PM CDT 02/21/2025 8:39 PM CDT [facility] LAB BLOOD ORDERABLE S Final Result Performing Organization Address [facility] Co de Phone Number [facility] [place] [address] * Magnesium (02/21/2025 7:10 PM CDT) [facility] Magnesium 1.7 1.4 - 2.5 mg/dL Blood 02/21/2025 7:10 PM CDT 02/21/2025 8:39 PM CDT [facility] BLOOD ORDERABLE S Final Result Performing Organization Address City/[facility] de Phone Number [facility] [place] [address] * (ABNORMAL) Basic metabolic panel (02/21/2025 7:10 PM CDT) [facility] Sodium 141 135 - 145 mmol/L Potassium, pl 4.5 3.3 - 4.9 mmol/L [facility] Chloride 106 97 - 110 mmol/L [facility] CO2 25 22 - 32 mmol/L [facility] Anion gap 10 2 - 15 mmol/L [facility] BUN 29(H) 6 - 25 mg/dL [facility] Creatinine 1.76(H) 0.80 - 1.30 mg/dL [facility] Glucose 159 70 - 199 mg/dL [facility] Comment: Interpretive Data Fasting glucose >/= 126 mg/dl is diagnostic for diabetes. Fasting is defined as no caloric intake for at least 8 hours. Fasting glucose between 100 mg/dl to 125 mg/dl is diagnostic of prediabetes. In a patient with classic symptoms of hyperglycemia or hyperglycemic crisis, a random glucose >/= 200 mg/dl is diagnostic for diabetes. In the absence of unequivocal hyperglycemia, results should be confirmed by repeat testing. The classification and Diagnosis of Diabetes Diabetes Care 2021; 46: S19-S40. Current interpretive data was last revised 2022. Calcium 9.0 8.5 - 10.3 mg/dL [facility] Blood 02/21/2025 7:10 PM CDT 02/21/2025 8:39 PM CDT Ellyn Olena Gomez LAB BLOOD ORDERABLE S Final Result Performing Organization Address [facility] de Phone Number [facility] [place] [employer] [place] [address] * POCT glucose (02/21/2025 4:44 PM CDT) Glucose, POC 119 70 - 199 mg/dL Blood 02/21/2025 4:44 PM CDT 02/21/2025 4:44 PM CDT Result [facility] Olena [employer] POCT ORDERABLES - DEVICE Final Result Performing Organization Address [facility] Co de Phone Number [facility] [place] [place] [address] * POCT glucose (02/21/2025 12:11 PM CDT) Glucose, POC 162 70 - 199 mg/dL Blood 02/21/2025 12:1 1 PM CDT 02/21/2025 12:11 PM CDT [facility] [employer] DO LAB POCT ORDERABLES - DEVICE Final Result Performing Organization Address [facility] Co de Phone Number COLE[facility] [place] [address] * POCT glucose (02/21/2025 8:27 AM CDT) Glucose, POC 122 70 - 199 mg/dL Blood 02/21/2025 8:2 7 AM CDT 02/21/2025 8:27 AM CDT [employer] [facility] LAB POCT ORDERABLES - DEVICE Final Result Performing Organization Address [facility] Co de Phone Number COLETTE [facility] [place] [address] * (ABNORMAL) POCT glucose (02/20/2025 9:08 PM CDT) Pathologist [facility] Glucose, POC 220(H) 70 - 199 mg/dL Blood 02/20/2025 9:08 PM CDT 02/20/2025 9:08 PM CDT Ellyn [employer] DO LAB POCT ORDERABLES - DEVICE Final Result Performing Organization Address [facility] Co de Phone Number COLETTE [facility] [place] [address] * (ABNORMAL) eGFR (02/20/2025 7:04 PM CDT) eGFR 43(L) >=60 mL/min/1. 73 m2 Comment: Interpretive Data [...] interpretive data was last reviewed 2021. Blood 02/20/2025 7:04 PM CDT 02/20/2025 8:30 PM CDT us Ellyn Gomez DO LAB BLOOD ORDERABLE S Final Result [facility] [place] [address] * (ABNORMAL) Differential, auto (02/20/2025 7:04 PM CDT) Neutrophil abs 6.21 1.50 - 6.50 K/cumm Imm gran abs 0.06 0.00 - 0.10 K/cumm [facility] Lymphocyte abs 0.46(L) 0.80 - 3.30 K/cumm [facility] Monocyte abs 0.84(H) 0.20 - 0.80 K/cumm [facility] Eosinophil abs 0.05 0.00 - 0.50 K/cumm [facility] Basophil abs 0.02 0.00 - 0.10 K/cumm [facility] Neutrophil pct 81.2 % [facility] Comment: Interpretive Data Percent cell count reference ranges are not reported, since discordance with absolute values may lead to misinterpretation of CBC data. Current Interpretive Data was last revised on 2017. Imm gran pct 0.8 % [facility] Comment: Interpretive Data Percent cell count reference ranges are not reported, since discordance with absolute values may lead to misinterpretation of CBC data. Current Interpretive Data was last revised on 2017. Lymphocyte pct 6.0 % [facility] Comment: Interpretive Data Percent cell count reference ranges are not reported, since discordance with absolute values may lead to misinterpretation of CBC data. Current Interpretive Data was last revised on 2017. Monocyte pct 11.0 % [facility] Comment: Interpretive Data Percent cell count reference ranges are not reported, since discordance with absolute values may lead to misinterpretation of CBC data. Current Interpretive Data was last revised on 2017. Eosinophil pct 0.7 % [facility] Comment: Interpretive Data Percent cell count reference ranges are not reported, since discordance with absolute values may lead to misinterpretation of CBC data. Current Interpretive Data was last revised on 2017. Basophil pct 0.3 % [facility] Comment: Interpretive Data Percent cell count reference ranges are not reported, since discordance with absolute values may lead to misinterpretation of CBC data. Current Interpretive Data was last revised on 2017. Blood 02/20/2025 7:04 PM CDT 02/20/2025 8:30 PM CDT us Ellyn Gomez DO LAB BLOOD ORDERABLE S Final Result [facility] [place] [address] * (ABNORMAL) CBC with auto differential (02/20/2025 7:04 PM CDT) WBC 7.64 3.80 - 9.90 K/cumm Hgb 14.0 13.0 - 17.5 g/dL [facility] Hct 44.7 38.9 - 50.3 % [facility] Plt 189 150 - 400 K/cumm [facility] MPV 11.1 9.1 - 12.3 fL [facility] RBC 4.43 4.30 - 5.80 M/cumm [facility] MCV 100.9(H) 81.3 - 96.4 fL [facility] MCH 31.6 27.1 - 33.3 pg [facility] MCHC 31.3(L) 32.3 - 35.7 g/dL [facility] RDW CV 15.6(H) 11.1 - 14.9 % [facility] RDW SD 58.4(H) 35.7 - 48.1 fL [facility] NRBC abs 0.00 0.00 - 0.01 K/cumm [facility] Blood 02/20/2025 7:04 PM CDT 02/20/2025 8:30 PM CDT [facility] BLOOD ORDERABLE S Final Result Performing Organization Address City/[facility]/ZIP Co de Phone Number [facility] [place] [address] * Phosphorus (02/20/2025 7:04 PM CDT) Pathologist [facility] Phosphorus, pl 3.4 2.3 - 4.5 mg/dL Blood 02/20/2025 7:04 PM CDT 02/20/2025 8:30 PM CDT [facility] BLOOD ORDERABLE S Final Result Performing Organization Address [facility] Co de Phone Number [facility] [place] [place] [address] * Magnesium (02/20/2025 7:04 PM CDT) Pathologist [facility] Magnesium 1.7 1.4 - 2.5 mg/dL Blood 02/20/2025 7:04 PM CDT 02/20/2025 8:30 PM CDT [facility] [employer] LAB BLOOD ORDERABLE S Final Result Performing Organization Address City/[facility] Co de Phone Number [facility] [place] [place] [address] * (ABNORMAL) Hemoglobin A1c (02/20/2025 7:04 PM CDT) Hgb A1C 5.8(H) 4.0 - 5.6 % Estimated Average Glucose 120 mg/dL [facility] [facility] Comment: The ADA recommends reporting an estimated Average Glucose (eAG) with all Hemoglobin A1c results using the equation derived from a study of 507 normal and diabetic adults. Minority populations were underrepresented and children were not included. (Diabetes Care 2020; 43(S1): S66-S76). The eAG is not equivalent to a fasting glucose. Blood 02/20/2025 7:04 PM CDT 02/20/2025 8:30 PM CDT us Gisselle Slater NP LAB BLOOD ORDERABLES Linsey elizalde Result [facility] [place] [address] * (ABNORMAL) Basic metabolic panel (02/20/2025 7:04 PM CDT) Sodium 141 135 - 145 mmol/L Potassium, pl 4.4 3.3 - 4.9 mmol/L [facility] Comment:Hemolyzed; Potassium value may be falsely elevated by as much as 0.6-1.0 mmol/L. Suggest redraw and reanalysis. Chloride 105 97 - 110 mmol/L [facility] CO2 23 22 - 32 mmol/L [facility] Anion gap 13 2 - 15 mmol/L [facility] BUN 26(H) 6 - 25 mg/dL [facility] Creatinine 1.63(H) 0.80 - 1.30 mg/dL [facility] Glucose 172 70 - 199 mg/dL [facility] Comment: Interpretive Data Fasting glucose >/= 126 mg/dl is diagnostic for diabetes. Fasting is defined as no caloric intake for at least 8 hours. Fasting glucose between 100 mg/dl to 125 mg/dl is diagnostic of prediabetes. In a patient with classic symptoms of hyperglycemia or hyperglycemic crisis, a random glucose >/= 200 mg/dl is diagnostic for diabetes. In the absence of unequivocal hyperglycemia, results should be confirmed by repeat testing. The classification and Diagnosis of Diabetes Diabetes Care 202; 46: S19-S40. Current interpretive data was last revised 2022. Calcium 9.3 8.5 - 10.3 mg/dL [facility] Blood 02/20/2025 7:04 PM CDT 02/20/2025 8:30 PM CDT Ellyn Gomez DO LAB BLOOD ORDERABLE S Final Result [facility] [place] [address] * XR Shoulder Left 2 or More Views (02/20/2025 12:32 PM CDT) Anatomical Region Laterality Modality Upper Extremities, Shoulder Left Digi pieter Radiography 02/20/2025 3:00 PM CDT Impressions 02/20/2025 3:13 PM CDT 1. 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 Electronically signed by: Jacob Pascual M.D. Narrative 02/20/2025 3:13 PM CDT EXAMINATION: XR SHOULDER LEFT 2 OR MORE VIEWS HISTORY: Tenderness to palpation FINDINGS: 3 radiographs of the left shoulder are submitted without comparison. No acute fracture. Mild glenohumeral and acromioclavicular joint osteoarthritis. Alignment is normal. Multiple surgical clips overlie the left neck. Procedure Note Jacob Pascual MD - 02/20/2025 EXAMINATION: XR SHOULDER LEFT 2 OR MORE VIEWS HISTORY: Tenderness to palpation FINDINGS: 3 radiographs of the left shoulder are submitted without comparison. No acute fracture. Mild glenohumeral and acromioclavicular joint osteoarthritis. Alignment is normal. Multiple surgical clips overlie the left neck. IMPRESSION: 1. 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 Electronically signed by: Jacob Pascual M.D. Gisselle Slater RESEARCH PROFESSOR IMG XR PROCEDURES Final R esult * POCT glucose (02/20/2025 12:12 PM CDT) Glucose, POC 192 70 - 199 mg/dL Blood 02/20/2025 12:1 2 PM CDT 02/20/2025 12:12 PM CDT [facility] O[facility]a [employer] DO LAB POCT ORDERABLES - DEVICE Final Result Performing Organization Address [facility]/ZIP Co de Phone Number [facility] [place] [place] [address] * POCT glucose (02/20/2025 7:50 AM CDT) [facility] Glucose, POC 102 70 - 199 mg/dL Blood 02/20/2025 7:50 AM CDT 02/20/2025 7:50 AM CDT [facility] [place] [employer] LAB POCT ORDERABLES - DEVICE Final Result Performing Organization Address [facility] Phone Number [facility] [place] [place] [address] * Drugs of Abuse Screen, Urine with Reflex Confirmation (02/20/2025 4:56 AM CDT) [facility] Amphetamine, ur Not Detected CutOff 500ng/mL Comment: Interpretive Data - Amphetamines: Samples containing greater than 500 ng/mL d-methamphetamine or other cross-reacting amphetamine compounds are reported as positive. Amphetamine immunoassays are subject to significant false positive rates due to cross-reactivity of non-amphetamine drugs. Confirmatory testing required for definitive results. Current Interpretive Data was last reviewed 2023. Barbiturates, ur Not Detected CutOff 200ng/mL [facility] Comment: Interpretive Data - Barbiturates: Samples containing greater than 200 ng/mL secobarbital or other cross-reacting barbiturate compounds are reported as positive. False positive and false negative results are possible. Confirmatory testing required for definitive results. Current Interpretive Data was last reviewed 2023. Benzodiazepines, ur Not Detected CutOff 100ng/mL [facility] Comment: Interpretive Data - Benzodiazepines: Samples containing greater than 100 ng/mL nordiazepam or other cross-reacting compounds are reported as positive. False positive and false negative results are possible. Confirmatory testing required for definitive results. Current Interpretive Data was last reviewed 2023. Cannabinoids, ur Not Detected CutOff 50 ng/mL [facility] Comment: Interpretive Data - Cannabinoids: Samples containing greater than 50 ng/mL delta-9 THC -COOH or other cross- reacting compounds are reported as positive. False positive and false negative results are possible. Confirmatory testing required for definitive results. Current Interpretive Data was last reviewed 2023. Cocaine, ur Not Detected CutOff 150ng/mL [facility] Comment: Interpretive Data - Cocaine: Samples containing greater than 150 ng/mL benzoylecgonine or other cross- reacting compounds are reported as positive. False positive and false negative results are possible. Confirmatory testing required for definitive results. Current Interpretive Data was last reviewed 2023. Fentanyl, Ur Not Detected CutOff 5 ng/mL [facility] Comment: Interpretive Data - Fentanyl: Samples containing greater than 5 ng/mL norfentanyl, fentanyl, or other cross-reacting fentanyl compounds are reported as positive. False positive and false negative results are possible. Confirmatory testing required for definitive results. Current Interpretive Data was last reviewed 2023. Methadone, ur Not Detected CutOff 300ng/mL [facility] Comment: Interpretive Data - Methadone: Samples containing greater than 300 ng/mL d,l-methadone or other cross-reacting compounds are reported as positive. False positive and false negative results are possible. Confirmatory testing required for definitive results. Current Interpretive Data was last reviewed 2023. Opiates, ur Not Detected CutOff 300ng/mL [facility] Comment: Interpretive Data - Opiates: Samples containing greater than 300 ng/mL morphine or other cross-reacting compounds are reported as positive. False positive and false negative results are possible. Confirmatory testing required for definitive results. Current Interpretive Data was last reviewed 2023. Oxycodone, ur Not Detected CutOff 100ng/mL [facility] Comment: Interpretive Data - Oxycodone: Samples containing greater than 100 ng/mL oxycodone or other cross-reacting compounds are reported as positive. False positive and false negative results are possible. Confirmatory testing required for definitive results. Current Interpretive Data was last reviewed 2023. Phencyclidine, ur Not Detected CutOff 25 ng/mL [facility] Comment: Interpretive Data - Phencyclidine: Samples containing greater than 25 ng/mL phencyclidine or other cross-reacting compounds are reported as positive. False positive and false negative results are possible. Confirmatory testing required for definitive results. Current Interpretive Data was last reviewed 2023. Urine Creatinine 74 mg/dL [facility] Comment: Interpretive Data Urine Creatinine: < 10 mg/dL is extremely dilute = or > 10 but < 20 mg/dL is dilute = or > 20 mg/dL is normal Current Interpretive Data was last revised on 2017. Urine 02/20/2025 4:56 AM CDT 02/20/2025 5:37 AM CDT Narrative [facility] - 02/20/2025 6:25 AM CDT Drug of Abuse screening is performed by immunoassay for medical purposes only. This is not to be used for Pain Management purposes. If Detected, confirmation testing will be performed for Amphetamines, Cocaine, Fentanyl, Methadone, Opiates, Oxycodone or Phencyclidine. us Adrian Pizarro MD LAB URINE ORDERABLES Final Re sult [facility] [place] [address] * CT Head and Cervical Spine WO Contrast (02/20/2025 4:34 AM CDT) Anatomical Region Laterality Modality Head and Neck N/A Computed Tomogra phy 02/20/2025 10:5 1 AM CDT Impressions 02/20/2025 11:37 AM CDT 1. Unchanged appearance of subacute mixed density left hemispheric subdural hematoma. No associated midline shift. 2. Question small chronic fracture of the inferior posterior endplate of C4 versus endplate osteophyte. 3. Mild to moderate multilevel degenerative changes as above with mild spinal canal stenosis at C3-C5. Moderate to severe multilevel facet and uncovertebral arthropathy. 4. Right thyroid goiter. Postsurgical changes of left hemithyroidectomy. Dictated by: Paulo Batista M.D. The radiology attending physician has personally reviewed this study, and had reviewed and/or edited this written report and agrees with it. Electronically signed by: Pepper Broussard M.D. Narrative 02/20/2025 11:37 AM CDT EXAMINATION: 1. CT head without contrast 2. CT of the cervical spine without contrast HISTORY: 79 years-old Male with subdural hematoma, follow-up. TECHNIQUE: CT of the head was performed with images acquired from skull base to vertex without intravenous contrast. CT of the cervical spine was performed according to the standard protocol without intravenous contrast. COMPARISON: Outside CT head dated 02/19/2025. FINDINGS: HEAD: Subacute with mixed density left hemispheric subdural hematoma with maximal thickness of 8 mm, unchanged. There is minimal underlying mass effect with trace sulcal effacement and asymmetry of the frontal horn of the right lateral ventricle. No midline shift. There is no additional acute intracranial hemorrhage identified. There is moderate ventricular and sulcal prominence as may be seen with parenchymal volume loss. There is mild right parietal scalp swelling and surgical mo. The wallace-white matter differentiation is normal. Bilateral lens replacements. Bilateral proptosis with increased retroorbital fat. The visualized portions of the mastoids are normal. Mucous retention cysts within the right frontal and right maxillary sinuses. No fractures are identified. CERVICAL SPINE: Straightening of the cervical spine. Slight anterolisthesis of L4 on L5. Chronic appearing fractured osteophyte of the inferior posterior endplate of C4. Limbus vertebrae of C4. Vertebral bodies are normal in height without compression fractures. Mild to moderate multilevel intervertebral disc height loss. The craniocervical junction is normal. Limited views of the skull base appear normal. The sphenoid sinus is well aerated. Large right thyroid goiter with mild mass effect on the trachea. C2-C3: Small left eccentric disc bulge. There is no facet arthropathy. There is no uncovertebral joint disease. There is no neuroforaminal stenosis. There is no spinal canal stenosis. C3-C4: Small disc bulge/disc osteophyte complex. There is severe left and mild right facet arthropathy. There is moderate bilateral uncovertebral joint disease. There is severe left neuroforaminal stenosis. There is mild spinal canal stenosis. C4-C5: Small disc osteophyte complex. There is severe bilateral facet arthropathy. There is mild bilateral uncovertebral joint disease. There is moderate left mild right neuroforaminal stenosis. There is mild spinal canal stenosis. C5-C6: Small disc osteophyte complex. There is mild bilateral facet arthropathy. There is moderate right and mild left uncovertebral joint disease. There is moderate right and mild left neuroforaminal stenosis. There is mild spinal canal stenosis. C6-C7: Small disc osteophyte complex. There is right facet arthropathy. There is moderate right and mild left uncovertebral joint disease. There is moderate right and mild left neuroforaminal stenosis. There is no spinal canal stenosis. C7-T1: Small disc osteophyte complex. There is mild right facet arthropathy. There is mild bilateral uncovertebral joint disease. There is no neuroforaminal stenosis. There is no spinal canal stenosis. Procedure Note VoPepper MD - 02/20/2025 EXAMINATION: 1. CT head without contrast 2. CT of the cervical spine without contrast HISTORY: 79 years-old Male with subdural hematoma, follow-up. TECHNIQUE: CT of the head was performed with images acquired from skull base to vertex without intravenous contrast. CT of the cervical spine was performed according to the standard protocol without intravenous contrast. COMPARISON: Outside CT head dated 02/19/2025. FINDINGS: HEAD: Subacute with mixed density left hemispheric subdural hematoma with maximal thickness of 8 mm, unchanged. There is minimal underlying mass effect with trace sulcal effacement and asymmetry of the frontal horn of the right lateral ventricle. No midline shift. There is no additional acute intracranial hemorrhage identified. There is moderate ventricular and sulcal prominence as may be seen with parenchymal volume loss. There is mild right parietal scalp swelling and surgical mo. The wallace-white matter differentiation is normal. Bilateral lens replacements. Bilateral proptosis with increased retroorbital fat. The visualized portions of the mastoids are normal. Mucous retention cysts within the right frontal and right maxillary sinuses. No fractures are identified. CERVICAL SPINE: Straightening of the cervical spine. Slight anterolisthesis of L4 on L5. Chronic appearing fractured osteophyte of the inferior posterior endplate of C4. Limbus vertebrae of C4. Vertebral bodies are normal in height without compression fractures. Mild to moderate multilevel intervertebral disc height loss. The craniocervical junction is normal. Limited views of the skull base appear normal. The sphenoid sinus is well aerated. Large right thyroid goiter with mild mass effect on the trachea. C2-C3: Small left eccentric disc bulge. There is no facet arthropathy. There is no uncovertebral joint disease. There is no neuroforaminal stenosis. There is no spinal canal stenosis. C3-C4: Small disc bulge/disc osteophyte complex. There is severe left and mild right facet arthropathy. There is moderate bilateral uncovertebral joint disease. There is severe left neuroforaminal stenosis. There is mild spinal canal stenosis. C4-C5: Small disc osteophyte complex. There is severe bilateral facet arthropathy. There is mild bilateral uncovertebral joint disease. There is moderate left mild right neuroforaminal stenosis. There is mild spinal canal stenosis. C5-C6: Small disc osteophyte complex. There is mild bilateral facet arthropathy. There is moderate right and mild left uncovertebral joint disease. There is moderate right and mild left neuroforaminal stenosis. There is mild spinal canal stenosis. C6-C7: Small disc osteophyte complex. There is right facet arthropathy. There is moderate right and mild left uncovertebral joint disease. There is moderate right and mild left neuroforaminal stenosis. There is no spinal canal stenosis. C7-T1: Small disc osteophyte complex. There is mild right facet arthropathy. There is mild bilateral uncovertebral joint disease. There is no neuroforaminal stenosis. There is no spinal canal stenosis. IMPRESSION: 1. Unchanged appearance of subacute mixed density left hemispheric subdural hematoma. No associated midline shift. 2. Question small chronic fracture of the inferior posterior endplate of C4 versus endplate osteophyte. 3. Mild to moderate multilevel degenerative changes as above with mild spinal canal stenosis at C3-C5. Moderate to severe multilevel facet and uncovertebral arthropathy. 4. Right thyroid goiter. Postsurgical changes of left hemithyroidectomy. Dictated by: Paulo Batista M.D. The radiology attending physician has personally reviewed this study, and had reviewed and/or edited this written report and agrees with it. Electronically signed by: Pepper Broussard M.D. Jules Moore MD IMG CT PROCEDURES Final R esult * POCT glucose (02/20/2025 12:34 AM CDT) Pathologist [facility] Glucose, POC 177 70 - 199 mg/dL Blood 02/20/2025 12:3 4 AM CDT 02/20/2025 12:34 AM CDT [facility] Olena Gomez DO LAB POCT ORDERABLES - DEVICE Final Result Performing Organization Address City/[facility]/ZIP Co de Phone Number [facility] [place] [address] * ECG 12 lead (02/19/2025 11:26 PM CDT) [facility] Ventricular Rate EKG/Min 95 BPM [facility] Atrial Rate 227 BPM [facility] QRS-Interval (MSEC) 128 ms [facility] QT-Interval (MSEC) 390 ms [facility] QTc 490 ms [facility] R [place] -49 degrees [facility] T [place] 112 degrees [facility] Diagnosis Atrial flutter with variable A-V block Left axis deviation Non-specific intra-ventricu lar conduction block Abnormal QRS-T angle, consider primary T wave abnormality Abnormal ECG When compared with ECG of 08-NOV-2021 07:27, Significant changes have occurred Confirmed by WILLIAM LAI M.D ([id number]) on 02/20/2025 9:34:02 AM [facility] 02/19/2025 11:2 6 PM CDT 02/20/2025 9:34 AM CDT Ellyn Olena [employer]luis DO ECG ORDERABLES Fin al Result [facility] * (ABNORMAL) eGFR (02/19/2025 11:16 PM CDT) eGFR 40(L) >=60 mL/min/1. 73 m2 Comment: Interpretive Data [...] interpretive data was last reviewed 2021. Blood 02/19/2025 11:1 6 PM CDT 02/19/2025 11:27 PM CDT us Jules Moore MD LAB BLOOD ORDERABLES Linsey l Result Performing Organization Address City/[facility]/ZIP Co de Phone Number [facility] [place] [place] [address] * Albumin (02/19/2025 11:16 PM CDT) Pathologist [facility] Albumin 3.5 3.5 - 5.0 g/dL Blood 02/19/2025 11:1 6 PM CDT 02/19/2025 11:27 PM CDT Gino Thompson MD LAB BLOOD ORDERABLES Linsey l Result [facility] [place] [address] * (ABNORMAL) Lipid panel (02/19/2025 11:16 PM CDT) Cholesterol 100 30 - 199 mg/dL Comment: Interpretive Data Ages < or = 19 years Acceptable: <170 mg/dL Borderline high: 170-199 mg/dL High: >or= 200 mg/dL Ages > or = 20 years Desirable: <200 mg/dL Borderline high: 200-239 mg/dL High: >or= 240 mg/dL Literature References: 1. Expert Panel on Integrated Guidelines for Cardiovascular Health and Risk Reduction in Children and Adolescents. Pediatrics 2011;128:S213 2. NCEP Expert Panel. Circulation 2004;110:227 Current Interpretive Data was last revised on 2018. Triglycerides 101 <=149 mg/dL [facility] Comment: Hemolyzed; result may be falsely elevated Interpretive Data Ages < or = 9 years Acceptable: <75 mg/dL Borderline high: 75-99 mg/dL High: >or= 100 mg/dL Ages 10 to 20 years Acceptable: <90 mg/dL Borderline high: 90-129 mg/dL High: >or= 130 mg/dL Ages > or = 20 years Desirable: <150 mg/dL Borderline high: 150-199 mg/dL High: 200-499 mg/dL Very high: >or= 499 mg/dL Literature References: 1. Expert Panel on Integrated Guidelines for Cardiovascular Health and Risk Reduction in Children and Adolescents. Pediatrics 2011;128:S213 2. NCEP Expert Panel. Circulation 2004;110:227 Current Interpretive Data was last revised on 2018. HDL 37(L) >=40 mg/dL [facility] Comment: Interpretive Data Ages < or = 19 years Acceptable: >45 mg/dL Borderline low: 40-45 mg/dL Low: <40 mg/dL Ages > or = 20 years Desirable: >or= 60 mg/dL Low: <40 mg/dL Literature References: 1. Expert Panel on Integrated Guidelines for Cardiovascular Health and Risk Reduction in Children and Adolescents. Pediatrics 2011;128:S213 2. NCEP Expert Panel. Circulation 2004;110:227 Current Interpretive Data was last revised on 2018. LDL, calculated 44 <=129 mg/dL [facility] Comment: Interpretive Data Ages < or = 19 years Acceptable: <110 mg/dL Borderline high: 110-129 mg/dL High: >or= 130 mg/dL Ages > or = 20 years Optimal: <100 mg/dL Near optimal: 100-129 mg/dL Borderline high: 130-159 mg/dL High: >160 mg/dL Calculated using the Michael LDL-C estimating equation. This equation was implemented on 2024. Prior to this date LDL-C was estimated using the Friedewald equation. Literature References: 1. Expert Panel on Integrated Guidelines for Cardiovascular Health and Risk Reduction in Children and Adolescents. Pediatrics 2011;128:S213 2. NCEP Expert Panel. Circulation 2004;110:227 3. Michael James et al. JULIUS Cardiol. 2019December 11;5(5):540-548. doi: 10.1001/[email or web address].2020.0013 Current Interpretive Data was last revised on 2024. Non-HDL Cholesterol 63 mg/dL [facility] Comment: Interpretive Data Ages < or = 19 years Acceptable: <120 mg/dL Borderline high: 120-144 mg/dL High: >145 mg/dL Ages > or = 20 years When triglycerides are >200 mg/dL, Non-HDL cholesterol is a secondary target of therapy with treatment goals that are 30 mg/dL greater than the LDL cholesterol target. Literature References: 1. Expert Panel on Integrated Guidelines for Cardiovascular Health and Risk Reduction in Children and Adolescents. Pediatrics 2011;128:S213 2. NCEP Expert Panel. Circulation 2004;110:227 Current Interpretive Data was last revised on 2018. Chol/HDL ratio 3 [facility] Blood 02/19/2025 11:1 6 PM CDT 02/19/2025 11:27 PM CDT Ellyn Gomez DO LAB BLOOD ORDERABLE S Final Result [facility] Department [place] [address] * (ABNORMAL) Basic metabolic panel (02/19/2025 11:16 PM CDT) Sodium 141 135 - 145 mmol/L Potassium, pl See Comment 3.3 - 4.9 mmol/L [facility] Comment:Credited; Hemolyzed Specimen Chloride 108 97 - 110 mmol/L [facility] CO2 20(L) 22 - 32 mmol/L [facility] Anion gap 13 2 - 15 mmol/L [facility] BUN 30(H) 6 - 25 mg/dL [facility] Creatinine 1.71(H) 0.80 - 1.30 mg/dL [facility] Glucose 156 70 - 199 mg/dL [facility] Comment: Interpretive Data Fasting glucose >/= 126 mg/dl is diagnostic for diabetes. Fasting is defined as no caloric intake for at least 8 hours. Fasting glucose between 100 mg/dl to 125 mg/dl is diagnostic of prediabetes. In a patient with classic symptoms of hyperglycemia or hyperglycemic crisis, a random glucose >/= 200 mg/dl is diagnostic for diabetes. In the absence of unequivocal hyperglycemia, results should be confirmed by repeat testing. The classification and Diagnosis of Diabetes Diabetes Care 202; 46: S19-S40. Current interpretive data was last revised 2022. Calcium 8.3(L) 8.5 - 10.3 mg/dL [facility] Blood 02/19/2025 11:1 6 PM CDT 02/19/2025 11:27 PM CDT us Jules Moore MD LAB BLOOD ORDERABLES Linsey l Result Performing Organization Address City/[facility]/ZIP Co de Phone Number [facility] [place] [address] * POCT glucose (02/19/2025 9:45 PM CDT) [facility] Signature Glucose, POC 88 70 - 199 mg/dL Blood 02/19/2025 9:45 PM CDT 02/19/2025 9:45 PM CDT us Ellyn Gomez DO LAB POCT ORDERABLES - DEVICE Final Result Performing Organization Address City/[facility] Co de Phone Number [facility] [place] [address] * LA CRITICAL CARE ILL/INJURED PATIENT INIT 30-74 MIN (02/19/2025 9:14 PM CDT) Narrative Adrian Pizarro MD - 02/19/2025 9:14 PM CDT Adrian Pizarro MD 02/19/2025 9:15 PM Critical Care Performed by: Adrian Pizarro MD Authorized by: Adrian Pizarro MD Critical care provider statement: As reflected in the history, physical exam, orders, notes, and/or MDM, I was personally present while the patient was critically ill and provided critical care services for 30 minutes, excluding time involved in separately billable procedures. Critical care was necessary to treat or prevent imminent or life-threatening deterioration of the following condition(s): acute cerebrovascular accident (CVA) severe hematologic condition severe traumatic condition Critical care was time spent by me providing the following: continuous telemetry, continuous pulse oximetry, interpretation of bedside monitors, imaging, and arterial/venous lab draws, serial bedside patient exams and serial laboratory checks frequent neurologic exams and initiation of anti-epileptic therapy I provided emergent necessary critical care medicine services to this patient. I ordered and reviewed test results and/or imaging studies. I spent time discussing the management of this critically ill patient with consultants and the medical staff. I spent time discussing the management and therapeutic options for this critically ill patient with the patient themselves or with the appropriate designated surrogate decision-maker. I spent time documenting in the medical record. us Adrian Pizarro MD IN CLINIC/BEDSIDE ORDERABLES Final Result * Check Sample (02/19/2025 7:30 PM CDT) ABO Rh O Positive [facility] OTHER 02/19/2025 7:30 PM CDT 02/19/2025 7:41 PM CDT us Adrian Pizarro MD LAB BLOOD ORDERABLES Final Re sult [facility] [place] [address] [facility] * Neuro CT Outside Consult (02/19/2025 7:18 PM CDT) Anatomical Region Laterality Modality N/A Computed Tomogra phy 02/19/2025 8:28 PM CDT Impressions 02/20/2025 10:29 AM CDT Mixed attenuation subdural collection layering over the right frontal and parietal lobe measures up to 6 mm in thickness. Mixed attenuation of this collection is favored to represent blood products of at least subacute chronicity. Recommend correlation for recent history of trauma. The findings, conclusions and recommendations within this report do not replace the initial findings, conclusions and recommendations made at the facility where the study was performed based upon the imaging and clinical condition at that time. Comparison with the prior report and clinical history is necessary. The provided images may or may not represent the [place] source data set and thus may contain changes that may lower the accuracy of this second-opinion interpretation. ADDENDUM - This addendum is being placed on the report for a non-time dependent finding on a patient who is admitted to the hospital (2C). [There is a small low-density extra-axial fluid collection layering over the left frontal and parietal lobes measuring up to 4 mm in thickness. 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 These findings were communicated to AJ Slater by Florentin Taveras MD, PhD at 10:25 AM. Dictated by: Florentin Taveras MD, PHD The radiology attending physician has personally reviewed this study, and had reviewed and/or edited this written report and agrees with it. Electronically signed by: Justen Ribera MD Narrative 02/20/2025 10:29 AM CDT EXAMINATION: RADIOLOGY CONSULTATION ON OUTSIDE IMAGING STUDY STUDY INITIALLY PERFORMED: 02/19/2025 at [facility]. TYPE OF STUDY: Multiple CT images of the head without intravenous contrast are provided at the time of this interpretation. CONTRAST ROUTE: No contrast was administered. The protocol was adequate to address the clinical question. The outside final report was not available at the time of this second opinion interpretation. TYPE OF CONSULTATION: Consult on outside imaging study with images submitted through Outside Image Sharing Service DATE OF CONSULTATION: 02/19/2025 8:18 PM HISTORY: Fall . Also reportedly fell 2 days prior. COMPARISON: None available. FINDINGS: Mixed attenuation subdural collection layers over the right frontal and parietal lobe measuring up to 6 mm in thickness. There is approximately 2 mm leftward midline shift on multiplanar reconstructed images. Scattered ill-defined hypodensities in the periventricular and subcortical white matter are nonspecific, likely on the basis of chronic small vessel ischemic change. There is parenchymal volume loss. There are atherosclerotic calcifications of the intracranial vessels. Ventricles are of normal size and morphology. The wallace-white matter differentiation is normal. Bilateral lens replacements. The visualized portions of the mastoids are normal. Small mucous retention cyst in the right maxillary sinus. No fractures are identified. Procedure Note Justen Ribera MD - 02/20/2025 EXAMINATION: RADIOLOGY CONSULTATION ON OUTSIDE IMAGING STUDY STUDY INITIALLY PERFORMED: 02/19/2025 at [facility]. TYPE OF STUDY: Multiple CT images of the head without intravenous contrast are provided at the time of this interpretation. CONTRAST ROUTE: No contrast was administered. The protocol was adequate to address the clinical question. The outside final report was not available at the time of this second opinion interpretation. TYPE OF CONSULTATION: Consult on outside imaging study with images submitted through Outside Image Sharing Service DATE OF CONSULTATION: 02/19/2025 8:18 PM HISTORY: Fall . Also reportedly fell 2 days prior. COMPARISON: None available. FINDINGS: Mixed attenuation subdural collection layers over the right frontal and parietal lobe measuring up to 6 mm in thickness. There is approximately 2 mm leftward midline shift on multiplanar reconstructed images. Scattered ill-defined hypodensities in the periventricular and subcortical white matter are nonspecific, likely on the basis of chronic small vessel ischemic change. There is parenchymal volume loss. There are atherosclerotic calcifications of the intracranial vessels. Ventricles are of normal size and morphology. The wallace-white matter differentiation is normal. Bilateral lens replacements. The visualized portions of the mastoids are normal. Small mucous retention cyst in the right maxillary sinus. No fractures are identified. IMPRESSION: Mixed attenuation subdural collection layering over the right frontal and parietal lobe measures up to 6 mm in thickness. Mixed attenuation of this collection is favored to represent blood products of at least subacute chronicity. Recommend correlation for recent history of trauma. The findings, conclusions and recommendations within this report do not replace the initial findings, conclusions and recommendations made at the facility where the study was performed based upon the imaging and clinical condition at that time. Comparison with the prior report and clinical history is necessary. The provided images may or may not represent the [place] source data set and thus may contain changes that may lower the accuracy of this second-opinion interpretation. ADDENDUM - This addendum is being placed on the report for a non-time dependent finding on a patient who is admitted to the hospital (2C). [There is a small low-density extra-axial fluid collection layering over the left frontal and parietal lobes measuring up to 4 mm in thickness. 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 These findings were communicated to AJ Slater by Florentin Taveras MD, PhD at 10:25 AM. Dictated by: Florentin Taveras MD, PHD The radiology attending physician has personally reviewed this study, and had reviewed and/or edited this written report and agrees with it. Electronically signed by: Justen Ribera MD us Adrian Pizarro MD IMG CT PROCEDURES Final Resul t * CT Body Outside Consult (02/19/2025 7:17 PM CDT) Anatomical Region Laterality Modality Body N/A Computed Tomogra phy 02/19/2025 7:53 PM CDT Impressions 02/19/2025 8:02 PM CDT 1. No acute CT findings of the chest, abdomen, or pelvis. The findings, conclusions and recommendations within this report do not replace the initial findings, conclusions and recommendations made at the facility where the study was performed based upon the imaging and clinical condition at that time. Comparison with the prior report and clinical history is necessary. The provided images may or may not represent the [place] source data set and thus may contain changes that may lower the accuracy of this second-opinion interpretation. Dictated by: Hi Sahni M.D. The radiology attending physician has personally reviewed this study, and had reviewed and/or edited this written report and agrees with it. Electronically signed by: Catherine Domingo M.D. Narrative 02/19/2025 8:02 PM CDT EXAMINATION: RADIOLOGY CONSULTATION ON OUTSIDE IMAGING STUDY STUDY INITIALLY PERFORMED: 02/19/2025 at institution name. TYPE OF STUDY: Multiple CT images of the chest, abdomen, and pelvis with intravenous contrast are provided at the time of this interpretation. CONTRAST ROUTE: Contrast was administered via the intravenous route. The protocol was adequate to address the clinical question. The outside final report was not available at the time of this second opinion interpretation. TYPE OF CONSULTATION: Consult on outside imaging study with images submitted through Outside Image Sharing Service DATE OF CONSULTATION: 02/19/2025 7:34 PM HISTORY: Transfer from outside hospital with concern for septic dural hematoma COMPARISON: None available. FINDINGS: Chest: Enlarged right hemithyroid measuring approximately 5.0 x 5.4 cm which appears largely unchanged from CT 10/03/2021. Heart size is normal. No pericardial effusion. Thoracic aorta is normal in course and caliber. Main pulmonary artery is normal in caliber. No supraclavicular, axillary or, or hilar lymphadenopathy. Enlarged high and low right paratracheal lymphadenopathy for example a 1.6 cm lower paratracheal lymph node (series 3, image 31) which appears largely unchanged from CT 10/03/2021. The lungs were imaged in the expiratory phase. There is mild air trapping. No suspicious pulmonary nodule, pleural effusion, consolidation, or pneumothorax. Abdomen/pelvis: Liver, gallbladder, pancreas, and adrenal glands are normal. Old granulomatous disease within the spleen. Otherwise, the spleen is normal. The kidneys are symmetrically enhancing without evidence of hydronephrosis. There is nonobstructive punctate renal stones bilaterally. There are bilateral hypodense lesions within the kidneys which are difficult to evaluate on these single phase images. Urinary bladder is normal. Prostate is present. Bowel is normal in course and caliber without evidence of obstruction. Abdominal aorta is normal in course and caliber. Moderate abdominal aortic atherosclerotic calcifications. No abdominal or pelvic lymphadenopathy. No suspicious osseous lesions. Procedure Note Catherine Domingo MD - 02/19/2025 EXAMINATION: RADIOLOGY CONSULTATION ON OUTSIDE IMAGING STUDY STUDY INITIALLY PERFORMED: 02/19/2025 at institution name. TYPE OF STUDY: Multiple CT images of the chest, abdomen, and pelvis with intravenous contrast are provided at the time of this interpretation. CONTRAST ROUTE: Contrast was administered via the intravenous route. The protocol was adequate to address the clinical question. The outside final report was not available at the time of this second opinion interpretation. TYPE OF CONSULTATION: Consult on outside imaging study with images submitted through Outside Image Sharing Service DATE OF CONSULTATION: 02/19/2025 7:34 PM HISTORY: Transfer from outside hospital with concern for septic dural hematoma COMPARISON: None available. FINDINGS: Chest: Enlarged right hemithyroid measuring approximately 5.0 x 5.4 cm which appears largely unchanged from CT 10/03/2021. Heart size is normal. No pericardial effusion. Thoracic aorta is normal in course and caliber. Main pulmonary artery is normal in caliber. No supraclavicular, axillary or, or hilar lymphadenopathy. Enlarged high and low right paratracheal lymphadenopathy for example a 1.6 cm lower paratracheal lymph node (series 3, image 31) which appears largely unchanged from CT 10/03/2021. The lungs were imaged in the expiratory phase. There is mild air trapping. No suspicious pulmonary nodule, pleural effusion, consolidation, or pneumothorax. Abdomen/pelvis: Liver, gallbladder, pancreas, and adrenal glands are normal. Old granulomatous disease within the spleen. Otherwise, the spleen is normal. The kidneys are symmetrically enhancing without evidence of hydronephrosis. There is nonobstructive punctate renal stones bilaterally. There are bilateral hypodense lesions within the kidneys which are difficult to evaluate on these single phase images. Urinary bladder is normal. Prostate is present. Bowel is normal in course and caliber without evidence of obstruction. Abdominal aorta is normal in course and caliber. Moderate abdominal aortic atherosclerotic calcifications. No abdominal or pelvic lymphadenopathy. No suspicious osseous lesions. IMPRESSION: 1. No acute CT findings of the chest, abdomen, or pelvis. The findings, conclusions and recommendations within this report do not replace the initial findings, conclusions and recommendations made at the facility where the study was performed based upon the imaging and clinical condition at that time. Comparison with the prior report and clinical history is necessary. The provided images may or may not represent the [place] source data set and thus may contain changes that may lower the accuracy of this second-opinion interpretation. Dictated by: Hi Sahni M.D. The radiology attending physician has personally reviewed this study, and had reviewed and/or edited this written report and agrees with it. Electronically signed by: Catherine Domingo M.D. Adrian Pizarro MD IMG CT PROCEDURES Final Resul t * XR Outside Reference (02/19/2025 7:15 PM CDT) Impressions RAD_[facility] - 02/19/2025 7:15 PM CDT These images are for Reference purposes only and have not been reviewed by [facility] Radiology. There will be no report generated by a [facility] Radiologist. Narrative [facility] - 02/19/2025 7:15 PM CDT EXAMINATION: Images For Reference Purposes Only us Adrian Pizarro MD IMG XR PROCEDURES Final Resul t Performing Organization Address City/[facility]/ZIP Co de Phone Number [facility] * (ABNORMAL) Thromboelastometry Panel - Heparin (02/19/2025 6:43 PM CDT) HEPTEM-CT 238(H) 141 - 215 sec HEPTEM-A5 35 33 - 51 mm [facility] HEPTEM-A10 47 44 - 61 mm [facility] HEPTEM-A20 57 52 - 67 mm [facility] HEPTEM-MCF 61 54 - 69 mm [facility] Blood 02/19/2025 6:43 PM CDT 02/19/2025 6:54 PM CDT us Timothy Cerna MD LAB BLOOD ORDERABLES Edit ed Result - Final Performing Organization Address City/[facility] Co de Phone Number [facility] [place] [address] * (ABNORMAL) Thromboelastometry Panel - Intrinsic (02/19/2025 6:43 PM CDT) INTEM-CT 231(H) 139 - 205 sec INTEM-A5 38 36 - 54 mm [facility] INTEM-A10 50 46 - 63 mm [facility] INTEM-A20 58 53 - 68 mm [facility] INTEM-MCF 62 55 - 70 mm [facility] INTEM-LI60 99 93 - 100 % [facility] INTEM-ML 1 0 - 7 % [facility] Comment: Interpretive Data Rotational Thromboelastometry (TEZ) Sigma is a type of viscoelastic testing (VET). TEZ can rapidly assess hemostasis and guide blood product transfusion in cardiac surgery, liver transplantation, and other bleeding situations. It is not a replacement for conventional coagulation testing (such as PT INR, aPTT and fibrinogen). While anticoagulation medications can impact TEZ results, TEZ should not be used to monitor or manage anticoagulation. Standard VET is insensitive to the pharmacological effects of aspirin, thienopyridines, P2Y12 inhibitors and flow-dependent platelet function defects. Literature References 1. Lillian James, John Ballesteros. Sensitivity of Viscoelastic Tests to Platelet Function. J Clin Med. 2019Aug 22 9(0) 053. 2. Jennifer O, Kasandra CM, Rafa N, Satish EE, Satish HB, Aaron HC, Antoine WILL, Kristopher Willis MD, Warner SS, Damon G, Hussein SANDOVAL, Mayelin ML, Justen AV, Justen SG, Costa L, Radha CumminsZ, Giovany M, Royce P, José D, Andry MM. Viscoelastic Hemostatic Assays A Primer on Legacy and New Generation Devices. J Clin Med. 2021Sep 19 11(4) 842. 3. TEZ Operating Manual. Emily Mccrary MA. Azeb 13-15. D- [id number] [facility]. Blood 02/19/2025 6:43 PM CDT 02/19/2025 6:54 PM CDT us Timothy Cerna MD LAB BLOOD ORDERABLES Edit ed Result - Final [facility] [place] [address] * Thromboelastometry Panel - Fibrinogen (02/19/2025 6:43 PM CDT) FIBTEM-A5 11 5 - 16 mm FIBTEM-A10 13 6 - 17 mm [facility] FIBTEM-A20 14 6 - 18 mm [facility] FIBTEM-MCF 14 9 - 19 mm [facility] Blood 02/19/2025 6:43 PM CDT 02/19/2025 6:54 PM CDT Timothy Cerna MD LAB BLOOD ORDERABLES Edit ed Result - Final Performing Organization Address [facility] Co de Phone Number [facility] [place] [address] * (ABNORMAL) Thromboelastometry Panel - Extrinsic (02/19/2025 6:43 PM CDT) EXTEM-CT >172 51 - 73 sec EXTEM-A5 31(L) 33 - 52 mm [facility] EXTEM-A10 47 45 - 62 mm [facility] EXTEM-A20 58 54 - 69 mm [facility] EXTEM-MCF 62 57 - 72 mm [facility] EXTEM-LI60 99 94 - 100 % [facility] EXTEM-ML 1 0 - 6 % [facility] Blood 02/19/2025 6:43 PM CDT 02/19/2025 6:54 PM CDT Timothy Cerna MD LAB BLOOD ORDERABLES Edit ed Result - Final Performing Organization Address [facility] Phone Number [facility] [place] [address] * (ABNORMAL) Differential, auto (02/19/2025 6:43 PM CDT) Neutrophil abs 5.74 1.50 - 6.50 K/cumm Imm gran abs 0.03 0.00 - 0.10 K/cumm [facility] Lymphocyte abs 0.48(L) 0.80 - 3.30 K/cumm [facility] Monocyte abs 0.83(H) 0.20 - 0.80 K/cumm [facility] Eosinophil abs 0.02 0.00 - 0.50 K/cumm [facility] Basophil abs 0.03 0.00 - 0.10 K/cumm [facility] Neutrophil pct 80.6 % [facility] Comment: Interpretive Data Percent cell count reference ranges are not reported, since discordance with absolute values may lead to misinterpretation of CBC data. Current Interpretive Data was last revised on 2017. Imm gran pct 0.4 % [facility] Comment: Interpretive Data Percent cell count reference ranges are not reported, since discordance with absolute values may lead to misinterpretation of CBC data. Current Interpretive Data was last revised on 2017. Lymphocyte pct 6.7 % [facility] Comment: Interpretive Data Percent cell count reference ranges are not reported, since discordance with absolute values may lead to misinterpretation of CBC data. Current Interpretive Data was last revised on 2017. Monocyte pct 11.6 % [facility] Comment: Interpretive Data Percent cell count reference ranges are not reported, since discordance with absolute values may lead to misinterpretation of CBC data. Current Interpretive Data was last revised on 2017. Eosinophil pct 0.3 % [facility] Comment: Interpretive Data Percent cell count reference ranges are not reported, since discordance with absolute values may lead to misinterpretation of CBC data. Current Interpretive Data was last revised on 2017. Basophil pct 0.4 % [facility] Comment: Interpretive Data Percent cell count reference ranges are not reported, since discordance with absolute values may lead to misinterpretation of CBC data. Current Interpretive Data was last revised on 2017. Blood 02/19/2025 6:43 PM CDT 02/19/2025 6:58 PM CDT us Timothy Cerna MD LAB BLOOD ORDERABLES Linsey l Result [facility] Department of Laboratories [place], [place] [id number] * (ABNORMAL) POC Blood Gas and Chemistries, Venous - (02/19/2025 6:43 PM CDT) pH, David POC 7.39 7.32 - 7.43 pCO2, david POC 36(L) 40 - 50 mmHg [facility] pO2, david POC 44 mmHg [facility] Na, POC 139 135 - 145 mmol/L [facility] K POC 5.1(H) 3.3 - 4.9 mmol/L [facility] Comment: Hemolyzed;K+ value may be falsely elevated 0.3-0.6 Interpretive Data Not all point of care methods assess for hemolysis. Confirm with instrument and retest K+ if not consistent with clinical signs and symptoms. Current Interpretive Data was last revised on 2023. Cl, POC 111(H) 97 - 110 mmol/L [facility] Ionized Ca, POC 4.49(L) 4.50 - 5.10 mg/dL [facility] Glucose, POC 86 70 - 199 mg/dL [facility] Lactate POC 1.7 0.7 - 2.0 mmol/L [facility] MetHb, David POC 0.1 0.0 - 1.9 % [facility] O2 Sat, David POC ([place]) 70 % [facility] Base excess, POC -2.6 mmol/L [facility] Hct, POC 43.0 41.4 - 51.6 % [facility] Total Hb, POC 14.2 13.8 - 17.2 g/dL [facility] Blood 02/19/2025 6:43 PM CDT 02/19/2025 6:43 PM CDT us Adrian Pizarro MD LAB POCT ORDERABLES - DEVICE Final Result [facility] [place] [address] * (ABNORMAL) CBC with auto differential (02/19/2025 6:43 PM CDT) Pathologist [facility] WBC 7.13 3.80 - 9.90 K/cumm Hgb 13.6 13.0 - 17.5 g/dL [facility] Hct 42.9 38.9 - 50.3 % [facility] Plt 204 150 - 400 K/cumm [facility] MPV 11.1 9.1 - 12.3 fL [facility] RBC 4.25(L) 4.30 - 5.80 M/cumm [facility] MCV 100.9(H) 81.3 - 96.4 fL [facility] MCH 32.0 27.1 - 33.3 pg [facility] MCHC 31.7(L) 32.3 - 35.7 g/dL [facility] RDW CV 15.9(H) 11.1 - 14.9 % [facility] RDW SD 58.5(H) 35.7 - 48.1 fL [facility] NRBC abs 0.00 0.00 - 0.01 K/cumm [facility] Blood 02/19/2025 6:43 PM CDT 02/19/2025 6:58 PM CDT Adrian Pizarro MD LAB BLOOD ORDERABLES Final Re sult Performing Organization Address [facility] Co de Phone Number [facility] [place] [address] * aPTT (02/19/2025 6:43 PM CDT) aPTT 35 28 - 38 sec Comment: Interpretive Data Heparin therapeutic range: 66.0 - 100.0 seconds. Range based on correlation with therapeutic heparin activity range of 0.3 - 0.7 Units/mL. Current interpretive data was last revised on 2023. Blood 02/19/2025 6:43 PM CDT 02/19/2025 7:00 PM CDT Adrian Pizarro MD LAB BLOOD ORDERABLES Final Re sult Performing Organization Address City/[facility] Co de Phone Number [facility] [place] [address] * (ABNORMAL) Protime-INR (02/19/2025 6:43 PM CDT) PT 14.5(H) 9.7 - 13.0 sec INR 1.33(H) 0.90 - 1.20 [facility] Comment: Interpretive data Oral anticoagulant therapeutic ranges: Venous thromboembolism prophylaxis or treatment: 2.0-3.0 CARDIOLOGY Standard range: 2.0-3.0 High-intensity range: 2.5-3.5 Refer to indication-specific guidelines for appropriate target ranges for prosthetic heart valve replacement. Current interpretive data was last revised on 2019. Blood 02/19/2025 6:43 PM CDT 02/19/2025 7:00 PM CDT Adrian Pizarro MD LAB BLOOD ORDERABLES Final Re sult Performing Organization Address [facility] Co de Phone Number [facility] [place] [address] * Type and screen (02/19/2025 6:43 PM CDT) ABO Rh O Positive Tasia, indirect Negative [facility] Blood 02/19/2025 6:43 PM CDT 02/19/2025 7:18 PM CDT Narrative [facility] - 02/19/2025 8:33 PM CDT Has the patient had Daratumumab or Isatuximab in the past 6 months?->Unknown Adrina Pizarro MD LAB BLOOD BANK TEST ORDERABLE S Final Result Performing Organization Address [facility] Co de Phone Number [facility] [place] [address] * Ethanol (02/19/2025 6:43 PM CDT) Ethanol <10 <=10 mg/dL Comment: Hemolyzed; result may be falsely decreased Interpretive Data Legal limit of intoxication > or = 80 mg/dL Levels > or = 400 mg/dL are potentially TOXIC. Current interpretive data was last revised on 2018. Blood 02/19/2025 6:43 PM CDT 02/19/2025 6:58 PM CDT us Adrian Pizarro MD LAB BLOOD ORDERABLES Final Re sult [facility] [place] [address] * Hepatitis panel, acute Blood (04/27/2023 11:14 AM CDT) Hep A IgM Nonreactive Nonreactive Hep B core IgM Nonreactive Nonreactive [facility] Hep C Ab Nonreactive Nonreactive [facility] Comment:Antibodies to HCV no t detected. Does NOT exclude the possibility of recent exposure to HCV. Current interpretive data was last revised on 22 HepBsAg Nonreactive Nonreactive [facility] Blood 04/27/2023 11:1 4 AM CDT 04/27/2023 2:07 PM CDT us Beverley Torres MD LAB MICROBIOLOGY - GENERAL ORDER TRAY Final Result Performing Organization Address [facility] Co de Phone Number [facility] [place] [address] from Last 3 Months or Most Recently Relevant to Health Maintenance Insurance T MEDICARE AET MEDICARE T MEDICARE Advance Directives For more information, please contact: [phone] * Full Code (Latest Code Status on File) Date Activated Date Inactivated Comments 02/20/2025 12:18 AM 02/25/2025 6:27 PM Care Teams Financial Systems Analyst Relationship Specialty Start Date End Date Shagufta Khan MD PCP - General Family Medicine 02/02/21
--- OUTSIDE RECORDS SUMMARY | 2025-03-18 08:20 | XMS_ITS | Encounter Summary ---
Author Organization [facility] Address [address] [facility] [address] Phone Care Team Providers Care Regulatory Affairs Specialist Name Role Phone Shagufta Khan MD Primary Care Provider Encounter [...] on file Legal Sex Male 2:28 AM HOSE OPERATOR Gender Identity Male 07/28/2020 10:07 AM HOSE OPERATOR Sexual Orientation Straight 07/28/2020 10 :07 AM HOSE OPERATOR documented as of this encounter Plan of Treatment Not on file documented as of this encounter Procedures Procedure Name Priority Date/Time Associated Diagnosis Comments SCAN - LABS 03/06/2023 documented in this encounter Results * SCAN - LABS (03/06/2023) us Provider Scanning Final Result documented in this encounter Visit Diagnoses Not on filedocumented in this encounter Care Teams Regulatory Affairs Specialist Relationship Specialty Start Date End Date Shagufta Khan MD PCP - General Family Medicine 02/02/21 documented as of this encounter
--- OUTSIDE RECORDS SUMMARY | 2025-03-18 08:21 | XMS_ITS | Encounter Summary ---
Author Organization [facility] Health Address [address] [place] [address] Care Team Providers Care Web Press Operator Helper Offset Name Role Phone Elizabeth Wei MD Primary Care Provider [phone] Shagufta Khan MD Primary Care Provider [phone] Reason for Visit * Reason Onset Date Comments MEDICATION REFILL 11/02/2020 Encounter Details Date Type Department Care Team (Late st Contact Info) Description 11/02/2020 Refill [facility] - Nephrology [address] [place] [address], [place] [address] Karthikeyan Elizabeth MD [address] [place] [address] [place] [address] MEDICATION REFILL Social History Tobacco [...] Office Visit [facility] - Nephrology [address] [place] [address] [address] Karthikeyan Elizabeth MD [address] [place] [address] [place] [address] documented as of this encounter Visit Diagnoses Not on filedocumented in this encounter Care Teams Web Press Operator Helper Offset Relationship Specialty Start Date End Date Elizabeth Wei MD PCP - General Family Medicine 01/22/19 09/25/23 Shagufta Khan MD [address] [place] [address] PCP - General Family Medicine 09/26/23 documented as of this encounter
--- OUTSIDE RECORDS SUMMARY | 2025-03-18 08:21 | XMS_ITS | Clinical Summary ---
Author Organization [facility] Address [address] [place] [address] Care Team Providers Care Flat Spring Assembler Name Role Phone Shagufta Khan MD Primary Care Provider [phone] Allergies Active Allergy Reactions Criticality Noted Date [...] Sex Assigned at Male 07/18/2024 10:14 PM COCOA PRESS OPERATOR Legal Sex Male 8:42 AM COCOA PRESS OPERATOR Gender Identity Male 07/18/2024 10:14 PM COCOA PRESS OPERATOR Sexual Orientation Straight 07/18/2024 10 :14 PM COCOA PRESS OPERATOR Last Filed Vital Signs Vital Sign Reading [...] 185.4 cm (6' 1) 10/03/2023 1:43 PM COCOA PRESS OPERATOR Body Mass Index 43.27 10/03/2023 1:43 PM COCOA PRESS OPERATOR Plan of Treatment Health Maintenance Due Date [...] Insurance [employer] OPEN CHOICE PPO Care Teams Flat Spring Assembler Relationship Specialty Start Date End Date Shagufta hKan MD [address] [place] [id number] PCP - General Family Practice 10/02/23
--- OUTSIDE RECORDS SUMMARY | 2025-03-18 08:21 | XMS_ITS | Encounter Summary ---
Author Organization [facility] Health Address [address] [facility] [place] [address] Care Team Providers Care Self Contained Behavior Unit Teacher Name Role Phone Elizabeth Wei MD Primary Care Provider [phone] Shagufta Khan MD Primary Care Provider [phone] Encounter Details Date Type Department Care Team (Late st Contact Info) Description 02/25/2019 Lab Requisition [facility] [address] [facility], [facility] [place] [address] Leola Pereyra MD [address] [facility] 3 [place] [address] Social History Tobacco Use Types Packs/Day Years [...] 2:00 PM CDT Office Visit [facility] - Nephrology [address] [facility], [place] [address] Karthikeyan Elizabeth MD [address] [place] [address] [address]L [place] [address] documented as of this encounter Procedures Procedure Name Priority Date/Time Associated Diagnosis Comments DERMATOPATHOLOGY Routine 02/24/2019 12:0 0 AM CDT documented in this encounter Results * DERMATOPATHOLOGY (02/24/2019 12:00 AM CDT) Case Report Dermatopathology Report Case: [id number] Authorizing Provider: Leola Pereyra MD Collected: 02/24/2019 [...] specimen consists of a shave biopsy measuring 03u85c2 mm. Jar 0. 9 3:52 PM CDT [...] characteristic determined by the Dermatopathology Laboratory at [facility], directed by Dr. John Adams. These tests need not be, and therefore are not, approved by the [place] Food and Drug Administration. The tests are used for clinical purposes. Billing Codes Specimen Charges Stain Charges 52238 1 27536 12623 1 1 3:52 PM CDT DERMATOPATHOLOGY LABORATORY [...] DERABLES Final Result DERMATOPATHOLOGY LABORATORY [facility] - Department of Dermatology [address] [facility] 5th [place] [address], [facility] [email or web address]] [phone] documented in this encounter Visit Diagnoses Not on filedocumented in this encounter Care Teams Self Contained Behavior Unit Teacher Relationship Specialty Start Date End Date Elizabeth Wei MD PCP - General Family Medicine 01/22/19 09/25/23 Shagufta Khan MD [address] [place] [address] PCP - General Family Medicine 09/26/23 documented as of this encounter
--- OUTSIDE RECORDS SUMMARY | 2025-03-18 08:21 | XMS_ITS | Encounter Summary ---
Author Organization [facility] Health Address [address] [facility] [place] [address] Care Team Providers Care Sole Dyer Name Role Phone Elizabeth Wei MD Primary Care Provider [phone] Shagufta Khan MD Primary Care Provider [phone] Encounter Details Date Type Department Care Team (Late st Contact Info) Description 08/28/2019 Lab Requisition [facility] [address] [facility], [place] [address] Arminda Boyd, [address] [facility] 3 [place] [address] Social History Tobacco Use Types Packs/Day Years [...] Description 06/10/2025 2:00 PM CDT Office Visit [facility] - Nephrology [address] [place] [address], [place] [address] Karthikeyan Elizabeth MD [address] [place] [address] [place] [address] documented as of this encounter Procedures Procedure Name Priority Date/Time Associated Diagnosis Comments DERMATOPATHOLOGY Routine 08/27/2019 12:0 0 AM TRUSS MAKER documented in this encounter Results * DERMATOPATHOLOGY (08/27/2019 12:00 AM TRUSS MAKER) Case Report Dermatopathology Report Case: [id number] Authorizing Provider: Arminda Boyd DO Collected: 08/27/2019 12:00 AM Ordering Location: [facility]erm[facility] Lab Received: 08/28/2019 10:17 AM Pathologist: Caitie Hutchins MD Specimens: A) - Skin, right upper arm B) - Skin, left abdomen 0 1:18 PM [facility] DERMATOPATHOLOGY LABORATORY Final Diagnosis Specimen A. SKIN, right upper arm: SOLAR LENTIGO (L81.4) SEBORRHEIC KERATOSIS (L82.1) DERMAL FIBROSIS (L90.5) (see microscopic description) Specimen B. SKIN, left abdomen: LENTIGINOUS MELANOCYTIC NEVUS, COMPOUND TYPE (COMPOUND MELANOCYTIC NEVUS WITH ARCHITECTURAL DISORDER) (D22.5) 0 1:18 PM [facility] DERMATOPATHOLOGY LABORATORY at [address] [facility] Clinical History A: R/O recurrent melanocytic proliferation. Irreg color and border. B: Nevus R/O atypia. 0 1:18 PM [facility] DERMATOPATHOLOGY LABORATORY Gross Description Specimen A: Received is one formalin filled container labeled with the patient's name and designated right upper arm. The specimen consists of a shave measuring 8m1h0js. Jar 0. Specimen B: Received is one formalin filled container labeled with the patient's name and designated left abdomen. The specimen consists of a shave measuring 3e3g5ui. Jar 0. 0 1:18 PM [facility] DERMATOPATHOLOGY LABORATORY Microscopic Description Specimen [...] or Compound Dysplastic Nevus) 0 1:18 PM [facility] DERMATOPATHOLOGY LABORATORY Disclaimer An external and internal positive and negative controls are appropriate for the histochemical, immunohistochemical and immunofluorescence stain(s) in this case (if any), except where stated explicitly. The performance characteristics of the stain(s) cited in this report were developed and its performance characteristic determined by the Dermatopathology Laboratory at [facility], directed by Dr. John Adams. These tests need not be, and therefore are not, approved by the [place] Food and Drug Administration. The tests are used for clinical purposes. Billing Codes Specimen Charges Stain Charges 46316 68197 1 1 36460 1 0 1:18 PM [facility] DERMATOPATHOLOGY LABORATORY Embedded Images 0 1:18 PM [facility] DERMATOPATHOLOGY LABORATORY Pathology/Cytology TISSUE SPECIMEN FROM SKIN / Unknown 08/27/2019 08/28/2019 10:17 AM TRUSS MAKER Miscellaneous samples (specimen) TISSUE SPECIMEN FROM SKIN / Unknown 08/27/2019 08/28/2019 10:17 AM TRUSS MAKER us Arminda Boyd DO LAB - PATHOLOGY/CYTOLOGY ORDERABLES Final Result DERMATOPATHOLOGY LABORATORY [facility] - Department of Dermatology [address] [place] [address], 5th Floor Lab [address] [phone] documented in this encounter Visit Diagnoses Not on filedocumented in this encounter Care Teams Sole Dyer Relationship Specialty Start Date End Date Elizabeth Wei MD PCP - General Family Medicine 01/22/19 09/25/23 Shagufta Khan MD [address] [place] [address] PCP - General Family Medicine 09/26/23 documented as of this encounter
--- OUTSIDE RECORDS SUMMARY | 2025-03-18 08:21 | XMS_ITS | Continuity of Care Document ---
Author Organization [facility] Address [address] [place] [address] Phone Care Team Providers Care Resident Care Aide Name Role Phone Booth OD, Jv Unavailable Unavailable Advance Directives Directive Yes / No Effective Date File Name No Information Encounters Encounter Description Practice Location Reason(s) For Visit Diagnoses Date Provider Providers Copied on Encounter [facility], [address] [place] [address] [address], [place], [place], [address], [place] tel:[phone] [facility] No Information 8-200 5 Booth OD Jv. [address] , [address], [place], [address], [place]. tel:[phone] Family History Family Member Type Diagnosis Age [...]
--- OUTSIDE RECORDS SUMMARY | 2025-03-18 08:21 | XMS_ITS | Encounter Summary ---
Author Organization [facility] Health Address [address] [facility] [place] [address] Care Team Providers Care Assistant Prosecuting Attorney Name Role Phone Elizabeth Wei MD Primary Care Provider [phone] Shagufta Khan MD Primary Care Provider [phone] Encounter Details Date Type Department Care Team (Late st Contact Info) Description 12/24/2019 Lab Requisition [facility] [address] [facility], [place] [address] Arminda Boyd, [address] [facility] 3 [place] [address] Social History Tobacco Use Types Packs/Day Years [...] Description 06/10/2025 2:00 PM CDT Office Visit [facility] - Nephrology [address] [place] [address], [place] [address] Karthikeyan Elizabeth MD [address] [place] [address] [place] [address] documented as of this encounter Procedures Procedure Name Priority Date/Time Associated Diagnosis Comments DERMATOPATHOLOGY Routine 12/23/2019 12:0 0 AM CDT documented in this encounter Results * DERMATOPATHOLOGY (12/23/2019 12:00 AM CDT) Case Report Dermatopathology Report Case: [id number] Authorizing Provider: Arminda Boyd DO Collected: 12/23/2019 12:00 AM Ordering Location: [facility] Lab Received: 12/24/2019 11:36 AM [...] The specimen consists of a shave measuring 8l4w0cn. Jar 0. 0 1:14 PM CDT DERMATOPATHOLOGY [...] by the Dermatopathology Laboratory at [facility], directed by Dr. John Adams. These tests need not be, and therefore are not, approved by the [place] Food and Drug Administration. The tests are used for clinical purposes. Billing Codes Specimen Charges Stain Charges 60386 1 0 1:14 PM CDT DERMATOPATHOLOGY LABORATORY Embedded Images 0 1:14 PM CDT DERMATOPATHOLOGY LABORATORY Pathology/Cytolog y TISSUE SPECIMEN FROM SKIN / Unknown 12/23/2019 12/24/2019 11:36 AM CDT us Arminda Boyd DO LAB - PATHOLOGY/CYTOLOGY ORDERABLES Final Result DERMATOPATHOLOGY LABORATORY [facility] - Department of Dermatology [facility] [facility], 5th [place] [address], [facility] [phone] documented in this encounter Visit Diagnoses Not on filedocumented in this encounter Care Teams Assistant Prosecuting Attorney Relationship Specialty Start Date End Date Elizabeth Wei MD PCP - General Family Medicine 01/22/19 09/25/23 Shagufta Khan MD [address] [place] [id number] PCP - General Family Medicine 09/26/23 documented as of this encounter
--- OUTSIDE RECORDS SUMMARY | 2025-03-18 08:21 | XMS_ITS | Encounter Summary ---
Author Organization [facility] Healthcare Address [address] [place] [address] Care Team Providers Care Injection Molding Supervisor Name Role Phone Shagufta Khan MD Primary Care Provider [phone] Encounter Details Date Type Department Care Team (Late st Contact Info) Description 11/18/2024 Orders Only [facility] Health Information Management [address] [place] [address] Scanning, Provider Social History Tobacco Use Types Packs/Day Years Used Date Smoking Tobacco: Former Cigarettes 1 1973 Pipe Cigars Smokeless Tobacco: Never Comments:Smoked for approxim ately a 10yr period from age 19 to [...] on file Legal Sex Male 2:28 AM JAVA LEAD DEVELOPER Gender Identity Male 07/28/2020 10:07 AM JAVA LEAD DEVELOPER Sexual Orientation Straight 07/28/2020 10 :07 AM JAVA LEAD DEVELOPER 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 file Not on file Not on file documented as of this encounter Plan of Treatment Not on file documented as of this encounter Procedures Procedure Name Priority Date/Time Associated Diagnosis Comments SCAN - RADIOLOGY/IMAGING 11/18/2024 documented in this encounter Results * SCAN - RADIOLOGY/IMAGING (11/18/2024) Anatomical Region Laterality Modality Other us Provider Scanning Final Result documented in this encounter Visit Diagnoses Not on filedocumented in this encounter Care Teams Injection Molding Supervisor Relationship Specialty Start Date End Date Shagufta Khan MD PCP - General Family Medicine 02/02/21 documented as of this encounter
--- OUTSIDE RECORDS SUMMARY | 2025-03-18 08:21 | XMS_ITS | Encounter Summary ---
Author Organization [facility] Health Address [address] [facility] [place] [address] Care Team Providers Care Supervisor Incising Name Role Phone Elizabeth Wei MD Primary Care Provider [phone] Shagufta Khan MD Primary Care Provider [phone] Reason for Visit * Reason Onset Date Comments MEDICATION REFILL 04/19/2019 Encounter Details Date Type Department Care Team (Late st Contact Info) Description 04/19/2019 Refill [facility] [address] [place] [address] Rolando Long MD [address] [facility] [address] [place] [address] MEDICATION REFILL Social History Tobacco Use Types [...] Assessment Author No 02/27/2019 5:00 PM Avila Taet RN documented as of this encounter Mental Status * Does person have difficulty concentrating/remembering/making decisions? Answer Entry Date Author No 02/27/2019 5:00 PM Avila Tate RN documented in this encounter Plan of Treatment Upcoming Encounters Date Type Department Care Team (Late st Contact Info) Description 06/10/2025 2:00 PM CDT Office Visit [facility] - Nephrology [address] [facility], [place] [address] Karthikeyan Elizabeth MD [address] [place] [address] [place] [address] documented as of this encounter Visit Diagnoses Not on filedocumented in this encounter Care Teams Supervisor Incising Relationship Specialty Start Date End Date Elizabeth Wei MD PCP - General Family Medicine 01/22/19 09/25/23 Shagufta Khan MD [address] [place] [address] PCP - General Family Medicine 09/26/23 documented as of this encounter
--- OUTSIDE RECORDS SUMMARY | 2025-03-18 08:21 | XMS_ITS | Encounter Summary ---
Author Organization [facility] Health Address [address] [facility] [place] [address] Care Team Providers Care Mine Motor Operator Name Role Phone Elizabeth Wei MD Primary Care Provider [phone] Shagufta Khan MD Primary Care Provider [phone] Encounter Details Date Type Department Care Team (Late st Contact Info) Description 06/05/2019 Lab Requisition [facility] [address] [facility], [place] [address] Arminda Boyd, [address] [facility] 3 DEPT [place] [address] Social History Tobacco Use Types Packs/Day Years [...] Description 06/10/2025 2:00 PM CDT Office Visit [facility] - Nephrology [address] [place] [address], [place] [address] Karthikeyan Elizabeth MD [address] [place] [address] [place] [address] documented as of this encounter Procedures Procedure Name Priority Date/Time Associated Diagnosis Comments DERMATOPATHOLOGY Routine 06/04/2019 12:0 0 AM CDT documented in this encounter Results * DERMATOPATHOLOGY (06/04/2019 12:00 AM CDT) Case Report Dermatopathology Report Case: [id number] Authorizing Provider: Arminda Boyd DO Collected: 06/04/2019 12:00 AM Ordering Location: [facility] Lab Received: 06/05/2019 05:22 AM Pathologist: [...] The specimen consists of a shave measuring 1x3k0tt. Jar 0. 2:28 PM CDT DERMATOPATHOLOGY LABORATORY [...] determined by the Dermatopathology Laboratory at [facility], directed by Dr. John Adams. These tests need not be, and therefore are not, approved by the [place] Food and Drug Administration. The tests are used for clinical purposes. Billing Codes Specimen Charges Stain Charges 23875 1 2:28 PM CDT DERMATOPATHOLOGY LABORATORY Embedded Images 2:28 PM CDT DERMATOPATHOLOGY LABORATORY Pathology/Cytolog y TISSUE SPECIMEN FROM SKIN / Unknown 06/04/2019 06/05/2019 5:22 AM CDT us Arminda Boyd DO LAB - PATHOLOGY/CYTOLOGY ORDERABLES Final Result DERMATOPATHOLOGY LABORATORY [facility] - Department of Dermatology [facility] [facility], 5th [place] [address], [facility] [phone] documented in this encounter Visit Diagnoses Not on filedocumented in this encounter Care Teams Mine Motor Operator Relationship Specialty Start Date End Date Elizabeth Wei MD PCP - General Family Medicine 01/22/19 09/25/23 Shagufta Khan MD [address] [place] [address] PCP - General Family Medicine 09/26/23 documented as of this encounter
--- OUTSIDE RECORDS SUMMARY | 2025-03-18 08:21 | XMS_ITS | Clinical Summary ---
Author Organization [facility] Address [address] [address] Care Team Providers Care Rod Hanger Name Role Phone Shagufta Khan MD Primary Care Provider [phone] Source Comments [facility],non-owned Affiliates and Associated Physician Practices is amultiple site organization consisting of ambulatory clinics and hospital sitesin [place], [place], [place] and [place]. This disclosure is being madepursuant to the Care Everywhere program and may not contain all information available regarding this patient. Last updated 18.[facility] Allergies Active Allergy Reactions Criticality Noted Date [...] tablet by mouth once daily 4 Active hydrALAZINE (Apresoline) 100 MG tabletIndication s:Crohn's disease of colon with complication (HCC),Primary hypertension Take 0.5 (one-half) tablet by mouth 3 times daily 270 tablet 1 4 Active cloNIDine (Catapres) 0.1 MG tablet TAKE 1 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 12/28/2017 Morbid obesity [...] Date Type Department Care Team Description 02/04/2025 Refill [facility] - Nephrology [address] [place] [address], [facility] [place] [address] Karthikeyan [place] MD Refill Request 12/31/2024 1:30 PM CDT Office Visit [facility] - Nephrology [address] [place] [phone] Karthikeyan [place] MD Stage 3 chronic kidney disease, unspecified whether stage 3a or 3b CKD (HCC) (Primary Dx) 12/31/2024 Travel 12/22/2024 Orders Only [facility] - Nephrology [address] [place] [address], [facility] [place] [address] Karthikeyan [place] MD from Last 3 Months [...] CDT Respiratory Rate 18 07/02/2024 1:35 PM SOCIAL MEDIA MARKETER Oxygen Saturation 97% 12/31/2024 1:47 PM CDT Inhaled Oxygen Concentration - - Weight 153.3 kg (338 lb) 12/31/2024 1:47 PM CDT Height 185.4 cm (6' 1) 07/02/2024 1:35 PM SOCIAL MEDIA MARKETER Body Mass Index 44.59 07/02/2024 1:35 PM SOCIAL MEDIA MARKETER Plan of Treatment Upcoming Encounters Date Type Department Care Team (Late st Contact Info) Description 06/10/2025 2:00 PM CDT Office Visit [facility] - Nephrology [address] [place] [address] [place] [phone] Karthikeyan [place] MD [address] [place] [address] [place] [phone] Health Maintenance Due Date Last Done Comments [...] VACCINE ( season) 2024 DEPRESSION SCREENING 08/13/2024 MEDICARE AWV CALENDAR YEAR 2024 INFLUENZA VACCINE (#1) 2025 , 04/13/2021, 03/31/2021, Additional history exists DIABETES - [...] - 12/23/2024 1:09 PM CDT Performed at: [address] [place] [address] [place] [id number] Case Packer And Sealer: Peyman Lilly PhD, Phone: [phone] us Karthikeyan Farmer MD LAB - URINE CHEM ISTRY ORDERABLES Final Result [facility] INSURANCE BILL [address] [place] [address] * (ABNORMAL) URINALYSIS REFLEX TO MICROSCOPIC NO CULTURE (12/22/2024 1:54 PM CDT) Specific [place] UA 1.018 1.005 - 1.030 [facility] INSURANCE [...] was indicated and was performed. Performed at: [facility] [id number] Case Packer And Sealer: Peyman Lilly PhD, Phone: [phone] WBC UA None seen 0 - 5 [...] - 12/23/2024 8:11 AM CDT Performed at: [facility] [address] [id number] Case Packer And Sealer: Peyman Lilly PhD, Phone: [phone] us Karthikeyan Farmer MD LAB - URINALYSIS ORDERABLES Final Result [facility] INSURANCE BILL [address] [place] [address] * (ABNORMAL) CBC WITH DIFFERENTIAL (12/22/2024 1:54 PM CDT) [facility] WBC 6.2 3.4 - 10.8 x10E3/uL [facility] [...] 12/23/2024 7:09 AM CDT Performed at: 01 - [address] [id number] Case Packer And Sealer: Peyman Lilly PhD, Phone: [phone] Karthikeyan Farmer MD LAB - HEMATOLOGY ORDERABLES Final Result [facility] INSURANCE BILL [address] [place] [address] * (ABNORMAL) RENAL FUNCTION PANEL (12/22/2024 1:54 PM CDT) Glucose 156(H) 70 - 99 mg/dL [facility] [...] - 12/23/2024 8:11 AM CDT Performed at: [address] [place] [id number] Case Packer And Sealer: Peyman Lilly PhD, Phone: [phone] us Karthikeyan Farmer MD LAB - CHEMISTRY ORDERABLES Final Result [facility] INSURANCE BILL [address] [place] [address] * (ABNORMAL) HEMOGLOBIN A1C (EXTERNAL RESULT ENTRY) (06/17/2021) Hemoglobin A1c (EXTERNAL RESULT) 7.3(A) 4.8 - 5.6 % [facility] INSURANCE BILL Blood BLOOD SPECIMEN / Unknown 06/17/2021 us Historical Provider LAB - CHEMISTRY ORDERABLE S Final Result [facility] INSURANCE BILL [address] [place] [address] from Last 3 Months or Most Recently Relevant to Health Maintenance Insurance AET AETNA AETNA MEDICARE ADV Advance Directives * Full Code (Latest Code Status on File) Date Activated Date Inactivated Comments 02/27/2019 3:26 PM 03/01/2019 6:53 PM * Full Code Date Activated Date Inactivated Comments 02/27/2019 6:49 AM 02/27/2019 3:26 PM Care Teams Rod Hanger Relationship Specialty Start Date End Date Shagufta Khan MD [address] [place] [address] PCP - General Family Medicine 09/26/23
[2025-03-18 08:35] LABS: Alanine Aminotransferase 24 U/L (6-50); Albumin Level 3.7 g/dL (3.5-5.1); Alkaline Phosphatase 78 U/L (38-126); Anion Gap 15 mmol/L (4-12); Aspartate Amino Transferase 31 U/L (17-59); Bilirubin,Total 1.5 mg/dL (0.2-1.3); Blood Urea Nitrogen 36 mg/dL (9-20); Calcium 8.8 mg/dL (8.4-10.2); Carbon Dioxide 16 mmol/L (22-30); Chloride 108 mmol/L (98-107); Estimated CRCL calculation 34 ml/min; Estimated Glomerular Filt Rate 25; Glucose 63 mg/dL (65-110); Potassium 4.5 mmol/L (3.4-5.0); Sodium 139 mmol/L (137-145); Total Protein 6.1 g/dL (6.3-8.2)
[2025-03-18] MEDS: SODIUM CHLORIDE 0.9% IV 1,000 ML 999 ML IV CONT (09:16)
[2025-03-18] MEDS: MORPHINE SULFATE (*CRX) 4 MG/ML INJ 2 MG IV PUSH (09:16)
--- NOTE | 2025-03-18 09:32 | ED.GENADULT ---
HPI - General Adult General Chief complaint: Extremity Injury, Lower Stated complaint: lower extremity weakness, neuropathy Time Seen by Provider: 03/18/25 07:55 History of Present Illness HPI narrative: Patient is a 79-year-old male who presents ER with weakness. Reports he woke up and tried ER bed but was too weak to stand up. Patient had similar issue yesterday when he had a fall. He did not strike his head on that fall in EMS came out and did a lift assist. Patient reports later in the day is able to get up and he went to [place] [facility] [place] he then had 4 beers and a Coke and that is all he took in in terms of liquid yesterday. No fevers or chills or sweats. No syncope. No chest pain or chest pressure. Patient reports back pain that began today but no trauma today. No saddle anesthesia. Has chronic neuropathy of legs that is unchanged today. Related Data Home Medications ?Medication ?Instructions ?Recorded ?Confirmed ?Last Taken ?Type finasteride 5 mg tablet 5 mg PO DAILY 12/19/19 03/18/25 03/17/25 History sodium bicarbonate 650 mg tablet 650 mg PO TID 12/19/21 03/18/25 03/17/25 History chlorthalidone 25 mg tablet 25 mg PO DAILY 01/18/23 03/18/25 03/17/25 History empagliflozin 10 mg tablet 10 mg PO DAILY 01/18/23 03/18/25 03/17/25 History (Jardiance) metoprolol succinate 100 mg 100 mg PO DAILY 07/10/23 03/18/25 03/17/25 History tablet,extended release 24 hr sacubitril 24 mg-valsartan 26 mg 1 tablet PO BID 07/10/23 03/18/25 03/17/25 History tablet (Entresto) hydralazine 100 mg tablet 100 mg PO BID 07/14/24 03/18/25 03/17/25 History acetaminophen 325 mg tablet 650 mg PO Q6H 02/25/25 03/18/25 03/17/25 History amlodipine 5 mg tablet 5 mg PO DAILY 02/25/25 03/18/25 03/17/25 History clonidine HCl 0.1 mg tablet 0.1 mg PO BID 02/25/25 03/18/25 03/17/25 History methocarbamol 500 mg tablet 500 mg PO TID PRN muscle spasm 02/25/25 03/18/25 Unknown History miconazole nitrate 2 % topical 1 applic topical BID 02/25/25 03/18/25 03/17/25 History powder polyethylene glycol 3350 17 17 g PO DAILY 02/25/25 03/18/25 03/17/25 History gram/dose oral powder pravastatin 20 mg tablet 20 mg PO HS 02/25/25 03/18/25 03/17/25 History apixaban 5 mg tablet (Eliquis) 5 mg PO Q12H 03/18/25 03/18/25 03/17/25 History levetiracetam 500 mg tablet 500 mg PO BID 03/18/25 03/18/25 03/17/25 History (Diamond) Allergies Allergy/AdvReac Type Severity Reaction Status Date / Time diclofenac Allergy Unknown Unknown Verified 03/18/25 13:46 Penicillins Allergy Unknown Unknown Verified 03/18/25 13:46 Review of Systems Review of Systems: All systems reviewed & are unremarkable except as noted in HPI and below Constitutional: Constitutional: Reports no additional constitutional complaints ENT: Reports system reviewed and no additional complaints, except as documented Cardiovascular: Cardiovascular: Reports no additional cardiovascular complaints Respiratory: Respiratory: Reports no additional respiratory complaints Musculoskeletal: Musculoskeletal: Reports no additional musculoskeletal complaints Neurologic: Reports system reviewed and no additional complaints, except as documented [facility] Past Medical History Medical History (Updated 03/18/25 @ 18:11 by Rj Aviles MD) Obesity with alveolar hypoventilation Obesity, morbid, BMI 40.0-49.9 Chronic subdural hematoma Atrial fibrillation 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, bilateral Multinodular goiter Morbid obesity with BMI of 45.0-49.9, adult Coronary artery disease ANTONIO on CPAP Primary hypertension Chronic diastolic CHF (congestive heart failure) Non-ischemic cardiomyopathy Dyspnea on exertion Morbid obesity Cataracts, bilateral CKD (chronic kidney disease) stage 3, GFR 30-59 ml/min Chronic joint pain Type 2 diabetes mellitus Surgical History Surgical History S/P ablation of atrial fibrillation History of thyroidectomy (~02/2019) Hx of cataract extraction (~08/2020) History of skin surgery (~03/2019) 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 Family History Family History (Updated 03/18/25 @ 13:29 by Sonia Galeano RN) Father Rheumatoid arthritis Lung cancer Mother Arthritis Hypertension Obesity Diabetes mellitus Sibling Diabetes mellitus Other Rheumatoid arteritis Social History Social History (Updated 02/25/25 @ 15:38 by Ivet Davis RN) Social History: former smoker Smoking packs per day: 2 Smoking cigarettes per day: 40.0 Years smoked: 15 Smoking pack-years: 30.00 Smoking status: Former smoker Tobacco type: cigarettes Second hand tobacco smoke exposure: No Smoking end date: 08/13/74 Alcohol intake: current Drinks per week: 12 Substance use: never Substance use type: does not use Do You Feel Safe in your Home?: Yes Lack of Transportation: No Lack of Food: Never True Current Housing: I Have Housing Concerned About Future Housing: No Difficulty Paying Gas/Electric Bills: No Difficulty Paying for Meds: No Currently Unemployed: No Education: High School Diploma/GED Difficulty w/ Childcare or Family Care: No Living arrangements: alone Occupation/Education: retired Gender identity (if verbalized by the patient): Male Sexual Orientation (if Verbalized by the Patient): Straight or Heterosexual Spiritual care concerns: Yes Agree to blood products: Yes Exam Narrative: GENERAL: Well-appearing, well-nourished, and in no acute distress. HEAD: Normocephalic, atraumatic. EYES: PERRL and EOMI. ENT: Dry mucous membranes. CHEST: Clear to auscultation. No respiratory distress. HEART: Irregularly irregular rate and rhythm. Normal peripheral pulses. ABDOMEN: Soft, nontender, nondistended. Back: No midline tenderness of the L-spine but mild bilateral paraspinal discomfort with sitting up. EXTREMITIES: Normal range of motion. No edema. SKIN: Warm, dry, no rash. NEURO: Alert and oriented x3. PSYCH: Normal mood and affect. Course Course Emergency Course: Patient educated about diagnosis and treatment plan. Patient received IV fluid. Admit to hospitalist service. Vital Signs Vital signs: Vital Signs Temperature 97.9 F 03/18/25 07:56 Pulse Rate 70 03/18/25 07:56 Respiratory Rate 16 03/18/25 07:56 Blood Pressure 94/52 L 03/18/25 07:56 Pulse Oximetry 100 03/18/25 07:56 Oxygen Delivery Room Air 03/18/25 07:56 Temperature 96.8 F L 03/18/25 14:00 Pulse Rate 73 03/18/25 14:00 Respiratory Rate 18 03/18/25 14:00 Blood Pressure 101/68 03/18/25 14:00 Pulse Oximetry 95 03/18/25 14:00 Oxygen Delivery Room Air 03/18/25 07:56 Medical Decision Making Vital Signs Vital Signs: Vital Signs Temperature 97.9 F 03/18/25 07:56 Pulse Rate 70 03/18/25 07:56 Respiratory Rate 16 03/18/25 07:56 Blood Pressure 94/52 L 03/18/25 07:56 Pulse Oximetry 100 03/18/25 07:56 Oxygen Delivery Room Air 03/18/25 07:56 Temperature 96.8 F L 03/18/25 14:00 Pulse Rate 73 03/18/25 14:00 Respiratory Rate 18 03/18/25 14:00 Blood Pressure 101/68 03/18/25 14:00 Pulse Oximetry 95 03/18/25 14:00 Oxygen Delivery Room Air 03/18/25 07:56 Lab Data 03/18/25 08:10 03/18/25 08:10 Labs: Lab Results 03/18/25 03/18/25 Range/Units 08:10 10:14 WBC 8.3 (4.5-10.0) K/mm3 RBC 4.04 L (4.6-6.20) M/mm3 Hgb 12.7 L (14.0-18.0) g/dL Hct 41.1 L (42.0-52.0) % MCV 101.7 H (80-100) fl MCH 31.4 (26-34) pg MCHC 30.9 L (32-36) g/dl RDW 14.5 (11.5-14.5) % Plt Count 211 (150-375) k/mm3 MPV 10.1 (7.4-10.4) fl Immature Gran % (Auto) 0.7 H (0-0.5) % Neut % (Auto) 81.5 H (45.5-73.1) % Lymph % (Auto) 5.3 L (18.3-44.2) % [place] % (Auto) 12.2 H (2.6-8.5) % Eos % (Auto) 0.2 (0-4.4) % Baso % (Auto) 0.1 L (0.2-1.2) % Lymph # (Auto) 0.44 L (0.9-3.2) K/mm3 [place] # (Auto) 1.0 H (0.1-0.6) K/mm3 Eos # (Auto) 0.0 (0-0.3) K/mm3 Baso # (Auto) 0.0 (0.0-0.1) K/mm3 Abs Immat Gran (auto) 0.06 H (0.00-0.031) K/mm3 Absolute Neuts (auto) 6.8 H (1.3-6.7) K/mm3 Absolute Nucleated RBC 0.000 (0.0-0.012) K/mm3 Nucleated RBC % 0.0 (0.0-0.2) % Sodium 139 (137-145) mmol/L Potassium 4.5 (3.4-5.0) mmol/L Chloride 108 H (98-107) mmol/L Carbon Dioxide 16 L (22-30) mmol/L Anion Gap 15 H (4-12) mmol/L BUN 36 H (9-20) mg/dL Creatinine 2.47 H (0.7-1.3) mg/dL Estim Creat Clear Calc 34 ml/min Estimated GFR 25 L (59 - ) Glucose 63 L (65-110) mg/dL Calcium 8.8 (8.4-10.2) mg/dL Total Bilirubin 1.5 H (0.2-1.3) mg/dL AST 31 (17-59) U/L ALT 24 (6-50) U/L Alkaline Phosphatase 78 (38-126) U/L Total Creatine Kinase 480 H (55-170) U/L Total Protein 6.1 L (6.3-8.2) g/dL Albumin 3.7 (3.5-5.1) g/dL Urine Color Dark yellow (Yellow) Urine Appearance Cloudy H (Clear) Urine pH 5.0 (5.0-9.0) Ur Specific [place] 1.022 (1.001-1.035) Urine Protein 2+ H (Negative) mg/dL Urine Glucose (UA) Trace H (Negative) mg/dL Urine Ketones Trace H (Negative) mg/dL Ur Blood (Man) Trace (Negative) Urine Nitrate Negative (Negative) Urine Bilirubin 1+ H (Negative) Urine Urobilinogen 1.0 (<2.0) mg/dL Add Ur Microanalysis Reviewed Leukocyte Esterase Rfl Negative (Negative) WU/UL Urine RBC 21-50 H (0-2) /hpf Urine WBC 0-5 (0-3) /hpf Ur Squamous Epith Cells Occasional (Few) /hpf Urine Bacteria None seen /hpf Urine Casts 11-20 Imaging Data Radiologist's impression: ITS Impressions Chest X-Ray 03/18/25 08:32 IMPRESSION: 1. Unchanged elevation of the right hemidiaphragm. No acute cardiopulmonary disease. Lumbar Spine X-Ray 03/18/25 09:35 Impression: 1: Severe lumbar spondylosis with levoscoliosis. ECG Data EKG #1: ECG completion date: 03/18/25 ECG completion time: 08:06 EKG Interpretation: normal rate (93), atrial fibrillation, non-specific ST changes and normal QRS Discharge Plan Discharge Clinical Impression: Acute kidney injury Patient Disposition: Still a Patient Condition: Stable
[2025-03-18 10:45] LABS: Add Urine Microscopic? YES; Appearance Urine Cloudy (Clear); Glucose Urine UA Trace mg/dL (Negative); Leukocyte Esterase Ur Negative LEU/UL (Negative); Need Manual Microscopic Reviewed; Nitrate Urine Negative (Negative); Specific Grav Ur 1.022 (1.001-1.035)
--- NOTE | 2025-03-18 12:03 | P.HP_ITS ---
H&P: HPI History of Present Illness Date/Time: 03/18/25 12:03 Chief Complaint: fall Narrative: 79 Year old male bed past medical history of AFib, diabetes type 2, CAD, hypertension, CHF, and CKD stage 3 who presents the hospital after a fall and was unable to get up. Patient called the fire department for left to help. Patient states that they were able to get him to his bed a substance better overnight. In the morning the patient was unable to bear his own weight so he called it is and mass again to bring him to the hospital. Patient denies any injuries from the fall. Denies hitting his head or lost consciousness. Patient did state that he drinks 4 beers yesterday. The lab work in the ED shows hemoglobin 12.7, chloride of 108, carbon dioxide 16 anion gap of 15, BUN of 36, creatinine of 2.47 with baseline being around 1.57, estimated GFR 25, glucose on arrival 63, urine is dark yellow and cloudy negative for infection. Chest x-ray shows no acute process. Lumbar x-ray shows no acute process. Review of Systems Review of Systems: 12 systems were reviewed and are negativ e except for as per HPI. [facility] Past Medical History Medical History (Updated 03/18/25 @ 18:11 by Rj Aviles MD) Obesity with alveolar hypoventilation Obesity, morbid, BMI 40.0-49.9 Chronic subdural hematoma Atrial fibrillation 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, bilateral Multinodular goiter Morbid obesity with BMI of 45.0-49.9, adult Coronary artery disease ANTONIO on CPAP Primary hypertension Chronic diastolic CHF (congestive heart failure) Non-ischemic cardiomyopathy Dyspnea on exertion Morbid obesity Cataracts, bilateral CKD (chronic kidney disease) stage 3, GFR 30-59 ml/min Chronic joint pain Type 2 diabetes mellitus Surgical History Surgical History S/P ablation of atrial fibrillation History of thyroidectomy (~02/2019) Hx of cataract extraction (~08/2020) History of skin surgery (~03/2019) 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 Family History Family History (Updated 03/18/25 @ 13:29 by Sonia Galeano RN) Father Rheumatoid arthritis Lung cancer Mother Arthritis Hypertension Obesity Diabetes mellitus Sibling Diabetes mellitus Other Rheumatoid arteritis Social History Social History (Updated 02/25/25 @ 15:38 by Ivet Davis RN) Social History: former smoker Smoking packs per day: 2 Smoking cigarettes per day: 40.0 Years smoked: 15 Smoking pack-years: 30.00 Smoking status: Former smoker Tobacco type: cigarettes Second hand tobacco smoke exposure: No Smoking end date: 08/13/74 Alcohol intake: current Drinks per week: 12 Substance use: never Substance use type: does not use Do You Feel Safe in your Home?: Yes Lack of Transportation: No Lack of Food: Never True Current Housing: I Have Housing Concerned About Future Housing: No Difficulty Paying Gas/Electric Bills: No Difficulty Paying for Meds: No Currently Unemployed: No Education: High School Diploma/GED Difficulty w/ Childcare or Family Care: No Living arrangements: alone Occupation/Education: retired Gender identity (if verbalized by the patient): Male Sexual Orientation (if Verbalized by the Patient): Straight or Heterosexual Spiritual care concerns: Yes Agree to blood products: Yes Meds Home Medications and Allergies Home Medications ?Medication ?Instructions ?Recorded ?Confirmed ?Type finasteride 5 mg tablet 5 mg PO DAILY 12/19/19 03/18/25 History sodium bicarbonate 650 mg tablet 650 mg PO TID 12/19/21 03/18/25 History chlorthalidone 25 mg tablet 25 mg PO DAILY 01/18/23 03/18/25 History empagliflozin 10 mg tablet 10 mg PO DAILY 01/18/23 03/18/25 History (Jardiance) metoprolol succinate 100 mg 100 mg PO DAILY 07/10/23 03/18/25 History tablet,extended release 24 hr sacubitril 24 mg-valsartan 26 mg 1 tablet PO BID 07/10/23 03/18/25 History tablet (Entresto) glimepiride 4 mg tablet 4 mg PO DAILY #90 tabs 05/07/24 03/18/25 Rx hydralazine 100 mg tablet 100 mg PO BID 07/14/24 03/18/25 History metformin 500 mg tablet,extended 1,000 mg (2 x 500 mg) PO BID #360 10/20/24 03/18/25 Rx release 24 hr tabs acetaminophen 325 mg tablet 650 mg PO Q6H 02/25/25 03/18/25 History amlodipine 5 mg tablet 5 mg PO DAILY 02/25/25 03/18/25 History clonidine HCl 0.1 mg tablet 0.1 mg PO BID 02/25/25 03/18/25 History methocarbamol 500 mg tablet 500 mg PO TID PRN muscle spasm 02/25/25 03/18/25 History miconazole nitrate 2 % topical 1 applic topical BID 02/25/25 03/18/25 History powder polyethylene glycol 3350 17 17 g PO DAILY 02/25/25 03/18/25 History gram/dose oral powder pravastatin 20 mg tablet 20 mg PO HS 02/25/25 03/18/25 History gabapentin 300 mg capsule 300 mg PO QHS #90 caps 02/27/25 03/18/25 Rx sitagliptin phosphate 100 mg 100 mg PO DAILY #90 tabs 03/11/25 03/18/25 Rx tablet (Januvia) apixaban 5 mg tablet (Eliquis) 5 mg PO Q12H 03/18/25 03/18/25 History levetiracetam 500 mg tablet 500 mg PO BID 03/18/25 03/18/25 History (Diamond) Allergies Allergy/AdvReac Type Severity Reaction Status Date / Time diclofenac Allergy Unknown Unknown Verified 03/18/25 13:46 Penicillins Allergy Unknown Unknown Verified 03/18/25 13:46 Vital Signs Vital Signs - 24 hr 03/18/25 07:56 03/18/25 08:16 03/18/25 08:46 Temperature 97.9 F 97.8 F Pulse Rate 70 84 77 Respiratory Rate 16 22 H 24 H Blood Pressure 94/52 L 129/81 103/66 Pulse Oximetry 100 94 95 Oxygen Delivery Room Air 03/18/25 09:17 03/18/25 09:48 03/18/25 10:01 Temperature 97.9 F Pulse Rate 79 69 69 Respiratory Rate 20 22 H 21 H Blood Pressure 118/68 118/73 108/63 Pulse Oximetry 93 93 94 Oxygen Delivery 03/18/25 10:16 Temperature Pulse Rate 67 Respiratory Rate 20 Blood Pressure 119/80 Pulse Oximetry 92 Oxygen Delivery Exam Narrative: General: well appearing, appears stated age. HEENT: normocephalic, atraumatic. Mucous membranes moist. EOMI, PERRLA, bilateral sclera anicteric, no conjunctival injection. Neck supple without JVD, lymphadenopathy, or bruit. Respiratory: clear to ascultation bilaterally. No rales/rhonic/wheezes. Cardiovascular: Regular rate and rhythm, normal S1-S2 upon ascultation. No murmurs, rubs, or clicks. PMI is nondisplaced, capillary refill less than 3 second. Abdomen: Obese Soft, round, no pulsatile masses, nondistended and nontender. No rebound, no guarding. No CVA tenderness, no hepatosplenomegaly. Bowel sounds present to all four quadrants. No high pitch or tinkling sounds, resonant to percussion. Extremities: No cyanosis, clubbing, or . Pulses are palpable 2/2. Limited range of motion in all extremities to to body habitus Neuro: Alert and orientated x 4. PERRLA. Cranial nerves 2-12 intact without focal deficit. Skin: Warm, dry, and intact, without rash, erythema, or lesion. Psych: pleasant, cooperative, normal speech, normal affect, no hallucinations, no dysarthia H&P: Results Labs Labs: Short CBC 03/18/25 Range/Units 08:10 WBC 8.3 (4.5-10.0) K/mm3 Hgb 12.7 L (14.0-18.0) g/dL Hct 41.1 L (42.0-52.0) % Plt Count 211 (150-375) k/mm3 BMP 03/18/25 08:10 Sodium 139 Potassium 4.5 Chloride 108 H Carbon Dioxide 16 L BUN 36 H Creatinine 2.47 H Glucose 63 L Calcium 8.8 Liver Function 03/18/25 Range/Units 08:10 Total Bilirubin 1.5 H (0.2-1.3) mg/dL AST 31 (17-59) U/L ALT 24 (6-50) U/L Alkaline Phosphatase 78 (38-126) U/L Albumin 3.7 (3.5-5.1) g/dL Urine 03/18/25 Range/Units 10:14 Urine Color Dark yellow (Yellow) Urine Appearance Cloudy H (Clear) Urine pH 5.0 (5.0-9.0) Ur Specific [place] 1.022 (1.001-1.035) Urine Protein 2+ H (Negative) mg/dL Urine Glucose (UA) Trace H (Negative) mg/dL Assessment and Plan Assessment and plan (1) Fall: Code(s): W19.XXXA - Unspecified fall, initial encounter Status: Acute Assessment and Plan: PT OT evaluate and treat Up with assistance Fall precautions Patient had a fall with subdural and was discharged from rehab on 03/07/2025 it appears that patient had finished his Keppra for subdural, and is okay to restart Eliquis (2) NICOLE (acute kidney injury): Code(s): N17.9 - Acute kidney failure, unspecified Status: Acute Assessment and Plan: IVF Repeat BMP in the morning (3) ETOH abuse: Code(s): F10.10 - Alcohol abuse, uncomplicated Status: Acute Assessment and Plan: [facility] protocol Monitor for withdrawals (4) Primary hypertension: Code(s): I10 - Essential (primary) hypertension Status: Acute Assessment and Plan: Hold antihypertensives while doing fall workup (5) Chronic diastolic CHF (congestive heart failure): Code(s): I50.32 - Chronic diastolic (congestive) heart failure Status: Acute Assessment and Plan: Patient does not appear to be on diuretics (6) Coronary artery disease: Qualifiers: Associated angina: without angina Coronary Disease-Associated Artery/Lesion type: [place] artery [place] vs. transplanted heart: [place] heart Qualified Code(s): I25.10 - Atherosclerotic heart disease of [place] coronary artery without angina pectoris Code(s): I25.10 - Atherosclerotic heart disease of [place] coronary artery without angina pectoris Status: Acute Assessment and Plan: Continue Entresto and Eliquis and Jardiance metoprolol, statin (7) Atrial fibrillation: Code(s): I48.91 - Unspecified atrial fibrillation Status: Acute Assessment and Plan: Continue Eliquis and metoprolol (8) Type 2 diabetes mellitus with diabetic neuropathy: Qualifiers: Diabetes mellitus wildlife protector insulin use: without wildlife protector use Qualified Code(s): E11.40 - Type 2 diabetes mellitus with diabetic neuropathy, unspecified Code(s): E11.40 - Type 2 diabetes mellitus with diabetic neuropathy, unspecified Status: Acute Quality VTE Prophylaxis VTE prophylaxis: mechanical ordered and pharmacologic ordered Hospitalist MIPS Advance Care Plan I have confirmed that the patient's Advanced Care Plan is present, code status is documented, or surrogate decision maker is listed in patient medical record.: Yes Medication Reconciliation I have utilized all available resources to obtain, update and review the patients current medications (includes all prescriptions, OTC, herbals, cannabis, and nutritional supplements).: Yes
[2025-03-18 13:17] LABS: Creatine Kinase 480 U/L (55-170)
--- NOTE | 2025-03-18 13:48 | PC.NURSE ---
This patient, Jewel White, was admitted to [facility] Room 321-01. Patient/family oriented to hospital policies and general routines including ID bracelet, bed and alarms, visiting hours, pain management, procedures, bathroom and other care routines, personal items, smoking policy, room service/diet, and visiting hours. Information on how to activate the Rapid Response Team has been discussed. Patient/Family are encouraged to report perceived risks to care and to ask questions if they do not understand what they are told or what they should do.
[2025-03-18] MEDS: SODIUM CHLORIDE 0.9% IV 1,000 ML 125 ML IV CONT ×2 (14:12→23:08)
[2025-03-18] MEDS: DOCUSATE SODIUM 100 MG CAPSULE PO (17:21)
[2025-03-18] MEDS: GABAPENTIN 300 MG CAPSULE PO (21:54)
[2025-03-18] MEDS: SODIUM BICARBONATE TAB 650 MG TABLET PO (21:55)
[2025-03-18] MEDS: APIXABAN 5 MG TABLET PO (21:55)
[2025-03-18] MEDS: PRAVASTATIN SODIUM 20 MG TABLET PO (21:55)
[2025-03-18] MEDS: SACUBITRIL/VALSARTAN 24-26 MG TABLET 1 TAB PO (23:08)
[2025-03-19] VITALS (9 sets, daily range): BP systolic 109–157; BP diastolic 58–99; PULSE 61–100; RESP 16–18; TEMP 36.5–37.1; O2SAT 91–98
--- NOTE | 2025-03-19 02:32 | PC.NURSE ---
Keppra and Lorazepam were ordered for pt. pt denies having hx of seizures, refused both of the medications, pt seem comfortable, sleeping well, no complaints. Pepper Aguilar NP solution director was notified of pt refusal to the meds.
--- NOTE | 2025-03-19 03:00 | PC.NURSE ---
pt stated that his BG tend to be low in the mornings, was checked around 21:00 was 100 mg/dl, got juice before sleeping. later on around 3 am, checked pt BG 72 mg/dl, Provider irrigation pump installer was notified. pt had juice again.
--- NOTE | 2025-03-19 03:01 | PM.EVENT ---
Event Note Event Note Event Note: I was called by the RN around 2:45 a.m. with concern about patient experiencing low blood sugar. Patient told the nurse that he often wakes up hypoglycemic. He had glucose of 100 at bedtime and she read checked the glucose around 245 with the result of 72. She wanted to know if she should wake up the patient and give him juice or change IV fluids to include dextrose. I reviewed the chart recent hemoglobin A1c is down to 5.9. Per HPI patient did not intake any food yesterday only drank 4 beers and some juice and a soda. He is also on 4 separate glucose lowering medications including glimepiride 4 mg daily, Jardiance 10 mg daily, Januvia 100 mg and extended release metformin. I placed the glimepiride and Januvia on hold at this time continue the Jardiance. Previous admitting provider also held metformin. The patient denies alcoholism, charting notes about 12 beers per week and patient states he drank 4 yesterday so it is reasonable to continue assessment to monitor CIWA. Lorazepam oral was ordered 2 mg every 4 hours scheduled but the patient had refused this medication. I changed it to p.r.n. for CIWA greater than 15 but it sounds like this will not be problematic. I also noted that admitting provider held multiple antihypertensive medications. 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
[2025-03-19 06:15] LABS: Hematocrit 40.5 % (42.0-52.0); Hemoglobin 12.3 g/dL (14.0-18.0); Immature Granulocyte Percent A 0.5 % (0-0.5); Lymphocytes Absolute Auto 0.51 K/mm3 (0.9-3.2); Mean Corpuscular HGB Conc 30.4 g/dl (32-36); Mean Corpuscular Hemoglobin 31.3 pg (26-34); Mean Corpuscular Volume 103.1 fl (80-100); Nucleated Red Blood Cells Absolute Auto 0.000 K/mm3 (0.0-0.012); Nucleated Red Blood Cells Perc 0.0 % (0.0-0.2); Platelet Count Result 161 k/mm3 (150-375); Red Blood Count 3.93 M/mm3 (4.6-6.20); White Blood Count 7.3 K/mm3 (4.5-10.0)
[2025-03-19 06:36] LABS: Anion Gap 9 mmol/L (4-12); Blood Urea Nitrogen 31 mg/dL (9-20); Calcium 8.3 mg/dL (8.4-10.2); Carbon Dioxide 20 mmol/L (22-30); Chloride 107 mmol/L (98-107); Estimated CRCL calculation 47 ml/min; Estimated Glomerular Filt Rate 37; Glucose 89 mg/dL (65-110); Potassium 4.1 mmol/L (3.4-5.0); Sodium 136 mmol/L (137-145)
[2025-03-19] MEDS: SODIUM CHLORIDE 0.9% IV 1,000 ML 125 ML IV CONT ×2 (06:45→15:09)
[2025-03-19] MEDS: METOPROLOL SUCCINATE EXT REL 100 MG TABCR PO (09:05)
[2025-03-19] MEDS: APIXABAN 5 MG TABLET PO ×2 (09:05→21:10)
[2025-03-19] MEDS: FINASTERIDE 5 MG TABLET PO (09:05)
[2025-03-19] MEDS: THERAPEUTIC MULTIVITAMINS/MINERALS TAB (*BKC) 1 TABLET PO (09:05)
[2025-03-19] MEDS: FOLIC ACID 1 MG TABLET PO (09:06)
[2025-03-19] MEDS: SACUBITRIL/VALSARTAN 24-26 MG TABLET 1 TAB PO ×2 (09:06→21:09)
[2025-03-19] MEDS: THIAMINE HCL 100 MG TABLET PO (09:06)
[2025-03-19] MEDS: SODIUM BICARBONATE TAB 650 MG TABLET PO ×3 (09:06→17:23)
[2025-03-19] MEDS: EMPAGLIFLOZIN 10 MG TABLET PO (09:06)
--- NOTE | 2025-03-19 13:59 | P.PNIM_ITS ---
Progress Note: A&P Assessment and Plan (1) Fall: Code(s): W19.XXXA - Unspecified fall, initial encounter Status: Acute Assessment and Plan: PT OT evaluate and treat Up with assistance Fall precautions Patient had a fall with subdural and was discharged from rehab on 03/07/2025 it appears that patient had finished his Keppra for subdural, and had restarted Eliquis (2) NICOLE (acute kidney injury): Code(s): N17.9 - Acute kidney failure, unspecified Status: Acute Assessment and Plan: Creatinine 2.47, down to 1.79 with fluids NS@125/hr Follow BMP (3) ETOH abuse: Code(s): F10.10 - Alcohol abuse, uncomplicated Status: Acute Assessment and Plan: [facility] protocol Monitor for withdrawals (4) Primary hypertension: Code(s): I10 - Essential (primary) hypertension Status: Acute Assessment and Plan: Hold antihypertensives while doing fall workup (5) Chronic diastolic CHF (congestive heart failure): Code(s): I50.32 - Chronic diastolic (congestive) heart failure Status: Acute Assessment and Plan: Patient does not appear to be on diuretics (6) Coronary artery disease: Qualifiers: Associated angina: without angina Coronary Disease-Associated Artery/Lesion type: ambler artery [place] vs. transplanted heart: ambler heart Qualified Code(s): I25.10 - Atherosclerotic heart disease of ambler coronary artery without angina pectoris Code(s): I25.10 - Atherosclerotic heart disease of ambler coronary artery without angina pectoris Status: Acute Assessment and Plan: Continue Entresto and Eliquis and Jardiance metoprolol, statin (7) Atrial fibrillation: Code(s): I48.91 - Unspecified atrial fibrillation Status: Acute Assessment and Plan: Continue Eliquis and metoprolol (8) Type 2 diabetes mellitus with diabetic neuropathy: Qualifiers: Diabetes mellitus adjunct faculty for medical terminology insulin use: without halfway use Qualified Code(s): E11.40 - Type 2 diabetes mellitus with diabetic neuropathy, unspecified Code(s): E11.40 - Type 2 diabetes mellitus with diabetic neuropathy, unspecified Status: Acute Assessment and Plan: Continue Jardiance Amaryl and sitagliptin on hold SSI prn (9) Low back pain: Code(s): M54.50 - Low back pain, unspecified Status: Acute Assessment and Plan: Reports that he was driving on Sunday. Woke up on Sunday and unable to lift legs easily due to pain Having Low back pain with intermittent spasms. 8/6 L spine xray showed Severe lumbar spondylosis with levoscoliosis Voiding, had a BM --Add methocarbamol 500 BID for back spasms --CT T & L spine without contrast for CKD Plan Recently completed keppra after subdural hematoma Time Spent With Patient Time: 55 minutes Subjective Date/time seen: 03/19/25 13:59 Interval history: Reports significant pain with any movement, back spasms Is voiding and had a bowel movement Creatinine 1.79 so NSAIDs limited. Review of Systems Review of Systems: 12 systems were reviewed and are negativ e except for as per HPI. Exam Narrative: General: well appearing, appears stated age. HEENT: normocephalic, atraumatic. Mucous membranes moist. EOMI, PERRLA, bilateral sclera anicteric, no conjunctival injection. Neck supple without JVD, lymphadenopathy, or bruit. Respiratory: clear to ascultation bilaterally. No rales/rhonic/wheezes. Cardiovascular: Regular rate and rhythm, normal S1-S2 upon ascultation. No murmurs, rubs, or clicks. PMI is nondisplaced, capillary refill less than 3 second. Abdomen: Obese Soft, round, no pulsatile masses, nondistended and nontender. No rebound, no guarding. No CVA tenderness, no hepatosplenomegaly. Bowel sounds present to all four quadrants. No high pitch or tinkling sounds, resonant to percussion. Extremities: No cyanosis, clubbing, or . Pulses are palpable 2/2. Limited range of motion in all extremities to to body habitus Musculoskeletal: Low back pain, mild discomfort to palpation of paraspinous muscles, no pain to vertebrae Neuro: Alert and orientated x 4. PERRLA. Cranial nerves 2-12 intact without focal deficit. Skin: Warm, dry, and intact, without rash, erythema, or lesion. Psych: pleasant, cooperative, normal speech, normal affect, no hallucinations, no dysarthia Objective Data Vital Signs Vital Signs: Vital Signs - 24 hr 03/18/25 14:00 03/18/25 20:34 03/19/25 02:46 Temperature 96.8 F L 99.6 F 98.7 F Pulse Rate 73 76 83 Respiratory Rate 18 18 16 Blood Pressure 101/68 134/86 122/78 Pulse Oximetry 95 92 91 Oxygen Delivery 03/19/25 04:37 03/19/25 08:00 03/19/25 08:00 Temperature 98.2 F 97.9 F Pulse Rate 70 61 61 Respiratory Rate 18 17 17 Blood Pressure 109/78 129/95 H Pulse Oximetry 93 91 91 Oxygen Delivery Room Air 03/19/25 12:00 Temperature 97.7 F Pulse Rate 100 Respiratory Rate 18 Blood Pressure 157/94 H Pulse Oximetry 94 Oxygen Delivery Intake/Output Intake/Output: Intake & Output 03/16/25 03/17/25 03/18/25 03/19/25 23:59 23:59 23:59 23:59 Intake Total 2120 1872.1 Output Total 350 1250 Balance 1770 622.1 Meds/Results Medications: Active Medications Generic Name Dose Route Start Last Admin Trade Name Freq PRN Reason Stop Dose Admin Acetaminophen 650 mg 03/18/25 11:21 Acetaminophen 325 Mg Tablet PO Q4H PRN Mild Pain (1-3) or Fever Hydrocodone Bitart/Acetaminophen 1 tab 03/18/25 11:21 Hydrocodone/Acetaminophen (*Crx) 5-325 Mg Tablet PO Q4H PRN Pain Rated 4-6 Apixaban 5 mg 03/18/25 21:00 03/19/25 09:05 Apixaban 5 Mg Tablet PO 5 mg Q12H CHANDAN Administration Clonidine HCl 0.1 mg 03/18/25 21:00 03/19/25 09:05 Clonidine Hcl 0.1 Mg Tablet PO 0.1 mg Q12HR CHANDAN Administration Dextrose 12.5 gm 03/18/25 20:09 Dextrose 50% 25 Gm/50 Ml Syringe IV PUSH PRN PRN Hypoglycemia Protocol Docusate Sodium 100 mg 03/18/25 17:00 03/19/25 09:03 Docusate Sodium 100 Mg Capsule PO Not Given BID CHANDAN Empagliflozin 10 mg 03/19/25 09:00 03/19/25 09:06 Empagliflozin 10 Mg Tablet PO 10 mg DAILY CHANDAN Administration Finasteride 5 mg 03/19/25 09:00 03/19/25 09:05 Finasteride 5 Mg Tablet PO 5 mg DAILY CHANDAN Administration Folic Acid 1 mg 03/19/25 09:00 03/19/25 09:06 Folic Acid 1 Mg Tablet PO 1 mg DAILY CHANDAN Administration Gabapentin 300 mg 03/18/25 21:00 03/18/25 21:54 Gabapentin 300 Mg Capsule PO 300 mg QHS [facility] Administration Glimepiride 4 mg 03/19/25 09:00 Glimepiride 2 Mg Tablet PO DAILY [facility] Glucagon 1 mg 03/18/25 20:09 Glucagon For Inj 1 Mg Vial IM PRN PRN Hypoglycemia Protocol Glucose 15 gm 03/18/25 20:09 Glucose Oral Gel 15 Gm Of Glucse In 37.5 Gm Tube PO PRN PRN Hypoglycemia Protocol Sodium Chloride 1,000 mls @ 125 mls/hr 03/18/25 11:25 08 12:36 Normal Saline Iv IV CONT Not Given .Q8H [facility] Dextrose 1,000 mls @ 100 mls/hr 03/18/25 20:09 Dextrose 5% 1,000 Ml IVPB PRN PRN Hypoglycemia Protocol Insulin Aspart 2 - 5 units 03/19/25 08:00 03/19/25 12:36 Insulin Aspart (*Bkc) 100 Units/Ml SUB-Q Not Given TIDWM [facility] Protocol Insulin Aspart 1 - 2 units 03/18/25 21:00 03/18/25 21:56 Insulin Aspart (*Bkc) 100 Units/Ml SUB-Q Not Given HS [facility] Protocol Lorazepam 2 mg 03/19/25 03:00 Lorazepam (*Crx) 1 Mg Tablet PO Q4HR PRN CIWA >15 Metoprolol Succinate 100 mg 03/19/25 09:00 03/19/25 09:05 Metoprolol Succinate Ext Rel 100 Mg Tabcr PO 100 mg DAILY [facility] Administration Morphine Sulfate 2 mg 03/18/25 11:21 Morphine Sulfate (*Crx) 2 Mg/Ml Inj IV PUSH Q2H PRN Pain Rated 7-10 Multivitamins/Calcium 1 tablet 03/19/25 09:00 03/19/25 09:05 Therapeutic Multivitamins/Minerals Tab (*Bkc) PO 1 tablet DAILY [facility] Administration Ondansetron HCl 4 mg 03/18/25 11:21 Ondansetron Inj 4 Mg/2 Ml Vial IV PUSH Q4H PRN Nausea Polyethylene Glycol 17 gm 03/19/25 09:00 03/19/25 09:04 Polyethylene Glycol 3350 17 Gm Powd.Pack PO Not Given DAILY [facility]ANDAN Pravastatin Sodium 20 mg 03/18/25 21:00 03/18/25 21:55 Pravastatin Sodium 20 Mg Tablet PO 20 mg HS CHANDAN Administration Sacubitril/Valsartan 1 tab 03/18/25 23:00 03/19/25 09:06 Sacubitril/Valsartan 24-26 Mg Tablet PO 1 tab Q12HR CHANDAN Administration Senna/Docusate Sodium 1 tab 03/18/25 22:50 Senna/Docusate Sodium Tablet PO HS PRN Constipation Sitagliptin Phosphate 100 mg 03/19/25 09:00 Sitagliptin Phosphate 100 Mg Tablet PO DAILY CHANDAN Sodium Bicarbonate 650 mg 03/18/25 19:15 03/19/25 09:06 Sodium Bicarbonate Tab 650 Mg Tablet PO 650 mg TID CHANDAN Administration Thiamine HCl 100 mg 03/19/25 09:00 03/19/25 09:06 Thiamine Hcl 100 Mg Tablet PO 100 mg DAILY CHANDAN Administration Radiology Results: ITS Impressions Chest X-Ray 03/18/25 08:32 IMPRESSION: 1. Unchanged elevation of the right hemidiaphragm. No acute cardiopulmonary disease. Lumbar Spine X-Ray 03/18/25 09:35 Impression: 1: Severe lumbar spondylosis with levoscoliosis. Labs Labs: Laboratory Results - last 24 hr 03/18/25 03/19/25 03/19/25 21:09 02:44 05:57 WBC 7.3 RBC 3.93 L Hgb 12.3 L Hct 40.5 L MCV 103.1 H MCH 31.3 MCHC 30.4 L RDW 14.6 H Plt Count 161 MPV 10.4 Immature Gran % (Auto) 0.5 Neut % (Auto) 79.2 H Lymph % (Auto) 7.0 L [place] % (Auto) 12.0 H Eos % (Auto) 1.2 Baso % (Auto) 0.1 L Lymph # (Auto) 0.51 L [place] # (Auto) 0.9 H Eos # (Auto) 0.1 Baso # (Auto) 0.0 Abs Immat Gran (auto) 0.04 H Absolute Neuts (auto) 5.8 Absolute Nucleated RBC 0.000 Nucleated RBC % 0.0 Sodium 136 L Potassium 4.1 Chloride 107 Carbon Dioxide 20 L Anion Gap 9 BUN 31 H Creatinine 1.79 H Estim Creat Clear Calc 47 Estimated GFR 37 L Glucose 89 POC Capillary Glucose 100 72 Calcium 8.3 L 03/19/25 11:57 WBC RBC Hgb Hct MCV MCH MCHC RDW Plt Count MPV Immature Gran % (Auto) Neut % (Auto) Lymph % (Auto) [place] % (Auto) Eos % (Auto) Baso % (Auto) Lymph # (Auto) [place] # (Auto) Eos # (Auto) Baso # (Auto) Abs Immat Gran (auto) Absolute Neuts (auto) Absolute Nucleated RBC Nucleated RBC % Sodium Potassium Chloride Carbon Dioxide Anion Gap BUN Creatinine Estim Creat Clear Calc Estimated GFR Glucose POC Capillary Glucose 152 H Calcium Quality VTE Prophylaxis VTE prophylaxis: mechanical ordered and pharmacologic ordered Hospitalist MIPS Advance Care Plan I have confirmed that the patient's Advanced Care Plan is present, code status is documented, or surrogate decision maker is listed in patient medical record.: Yes Medication Reconciliation I have utilized all available resources to obtain, update and review the patients current medications (includes all prescriptions, OTC, herbals, cannabis, and nutritional supplements).: Yes
[2025-03-19] MEDS: DOCUSATE SODIUM 100 MG CAPSULE PO (17:23)
[2025-03-19] MEDS: PRAVASTATIN SODIUM 20 MG TABLET PO (21:09)
[2025-03-19] MEDS: GABAPENTIN 400 MG CAPSULE PO (21:10)
[2025-03-19] MEDS: INSULIN ASPART (*BKC) 100 UNITS/ML SUB-Q (21:11)
[2025-03-20] VITALS (10 sets, daily range): BP systolic 109–133; BP diastolic 81–93; PULSE 89–110; RESP 16–18; TEMP 36.2–37.7; O2SAT 91–97
[2025-03-20] MEDS: SODIUM CHLORIDE 0.9% IV 1,000 ML 125 ML IV CONT ×2 (00:12→12:50)
[2025-03-20] MEDS: METOPROLOL SUCCINATE EXT REL 100 MG TABCR PO (09:07)
[2025-03-20] MEDS: FINASTERIDE 5 MG TABLET PO (09:07)
[2025-03-20] MEDS: THERAPEUTIC MULTIVITAMINS/MINERALS TAB (*BKC) 1 TABLET PO (09:08)
[2025-03-20] MEDS: FOLIC ACID 1 MG TABLET PO (09:08)
[2025-03-20] MEDS: THIAMINE HCL 100 MG TABLET PO (09:08)
[2025-03-20] MEDS: DOCUSATE SODIUM 100 MG CAPSULE PO ×2 (09:08→17:05)
[2025-03-20] MEDS: SACUBITRIL/VALSARTAN 24-26 MG TABLET 1 TAB PO ×2 (09:08→21:35)
[2025-03-20] MEDS: SODIUM BICARBONATE TAB 650 MG TABLET PO ×3 (09:08→17:05)
[2025-03-20] MEDS: EMPAGLIFLOZIN 10 MG TABLET PO (09:08)
[2025-03-20] MEDS: APIXABAN 5 MG TABLET PO ×2 (09:09→21:35)
--- NOTE | 2025-03-20 11:59 | P.PNIM_ITS ---
Progress Note: A&P Assessment and Plan (1) Low back pain: Code(s): M54.50 - Low back pain, unspecified Status: Acute Assessment and Plan: Reports that he was driving on Sunday. Woke up on Sunday and unable to lift legs easily due to pain. Has decreased sensation bilaterally chronically but feels less sensation to feet today. More difficulty voiding this morning but bladder scan still <300. Having Low back pain with intermittent spasms. 03/18 L spine xray showed Severe lumbar spondylosis with levoscoliosis 03/20 CT T & L spine without contrast showed moderate to severe thoracic and lumbar spondylosis. No acute osseous adenopathy. --MRI T/L spine without contrast --Added methocarbamol 500 BID for back spasms 03/19, may be helping --Gabapentin 300<400mg hs --Vicodin q4 prn (2) Fall: Code(s): W19.XXXA - Unspecified fall, initial encounter Status: Acute Assessment and Plan: PT OT evaluate and treat Up with assistance Fall precautions Patient had a fall with subdural and was discharged from rehab on 03/07/2025 it appears that patient had finished his Keppra for subdural, and had restarted Eliquis (3) NICOLE (acute kidney injury): Code(s): N17.9 - Acute kidney failure, unspecified Status: Acute Assessment and Plan: Creatinine 2.47, down to 1.79 with fluids NS@125/hr>75/hr Follow BMP (4) ETOH abuse: Code(s): F10.10 - Alcohol abuse, uncomplicated Status: Acute Assessment and Plan: [facility] protocol Monitor for withdrawals (5) Primary hypertension: Code(s): I10 - Essential (primary) hypertension Status: Acute Assessment and Plan: Hold antihypertensives while doing fall workup (6) Chronic diastolic CHF (congestive heart failure): Code(s): I50.32 - Chronic diastolic (congestive) heart failure Status: Acute Assessment and Plan: Patient does not appear to be on diuretics (7) Coronary artery disease: Qualifiers: Associated angina: without angina Coronary Disease-Associated Artery/Lesion type: platinum artery [place] vs. transplanted heart: platinum heart Qualified Code(s): I25.10 - Atherosclerotic heart disease of platinum coronary artery without angina pectoris Code(s): I25.10 - Atherosclerotic heart disease of platinum coronary artery without angina pectoris Status: Acute Assessment and Plan: Continue Entresto and Eliquis and Jardiance metoprolol, statin (8) Atrial fibrillation: Code(s): I48.91 - Unspecified atrial fibrillation Status: Acute Assessment and Plan: Continue Eliquis and metoprolol (9) Type 2 diabetes mellitus with diabetic neuropathy: Qualifiers: Diabetes mellitus [facility] insulin use: without [facility] use Qualified Code(s): E11.40 - Type 2 diabetes mellitus with diabetic neuropathy, unspecified Code(s): E11.40 - Type 2 diabetes mellitus with diabetic neuropathy, unspecified Status: Acute Assessment and Plan: Continue Jardiance Amaryl and sitagliptin on hold SSI prn Plan Recently completed kera after subdural hematoma Time Spent With Patient Time: 56 minutes Subjective Date/time seen: 03/20/25 11:59 Interval history: LE weakness complicated by chronic neuropathy and pain. 2/5 feet. Trying to void today but unable to this morning. Bladder scan still <300ml. Giving 500ml saline IV Consult neurosurgery CT Thoracic/Lumbar Spine CT Moderate to severe thoracic and lumbar spondylosis Fluids, repeat labs. MRI wo contrast with CKD HR 110 today Having pain/spasms limiting movement, slightly improved since yesterday Review of Systems Review of Systems: 12 systems were reviewed and are negativ e except for as per HPI. Exam Narrative: General - Awake and alert. No acute distress Eyes - PERRLA, EOM intact ENT - No thrush, No erythema Neck - No noticeable or palpable swelling Lymph Nodes - No lymphadenopathy Cardiovascular - RRR no m/r/g, no JVD Lungs: Clear to auscultation, No wheezing, use of accessory muscles, no crackles or wheezes. Skin - Skin warm and dry, no wounds or rashes Abdomen - Normal bowel sounds, abdomen soft and nontender Extremities - No edema, cyanosis or clubbing Musculoskeletal - 5/5 strength, normal range of motion, no swollen or erythematous joints. Neurological ? Alert and oriented x 3, Decreased sensation LE (reports chronic but slightly more decreased), Weakness and pain with straight leg raise and foot pushes. Limited by pain Psych: Normal mood and affect Objective Data Vital Signs Vital Signs: Vital Signs - 24 hr 03/19/25 12:00 03/19/25 12:00 03/19/25 16:00 Temperature 97.7 F 98.2 F Pulse Rate 100 62 Respiratory Rate 18 17 Blood Pressure 157/94 H 131/58 L 131/58 L Pulse Oximetry 94 98 Oxygen Delivery 03/19/25 16:00 03/19/25 20:00 03/19/25 20:00 Temperature Pulse Rate Respiratory Rate Blood Pressure 131/58 L 147/99 H Pulse Oximetry Oxygen Delivery CPAP 03/19/25 20:11 03/19/25 20:41 03/19/25 21:45 Temperature 97.8 F Pulse Rate 99 94 Respiratory Rate 16 Blood Pressure 147/99 H Pulse Oximetry 92 92 92 Oxygen Delivery Room Air CPAP 03/20/25 00:00 03/20/25 00:07 03/20/25 03:40 Temperature 97.8 F Pulse Rate 91 96 Respiratory Rate 16 Blood Pressure 131/81 131/81 Pulse Oximetry 97 94 Oxygen Delivery 03/20/25 04:30 03/20/25 04:42 03/20/25 07:43 Temperature 98.5 F 97.9 F Pulse Rate 96 110 H Respiratory Rate 18 18 Blood Pressure 112/81 112/81 109/82 Pulse Oximetry 94 94 Oxygen Delivery Intake/Output Intake/Output: Intake & Output 03/17/25 03/18/25 03/19/25 03/20/25 23:59 23:59 23:59 23:59 Intake Total 2120 3856.1 1360 Output Total 350 1450 400 Balance 1770 2406.1 960 Meds/Results Medications: Active Medications Generic Name Dose Route Start Last Admin Trade Name Freq PRN Reason Stop Dose Admin Acetaminophen 650 mg 03/18/25 11:21 Acetaminophen 325 Mg Tablet PO Q4H PRN Mild Pain (1-3) or Fever Hydrocodone Bitart/Acetaminophen 1 tab 03/18/25 11:21 Hydrocodone/Acetaminophen (*Crx) 5-325 Mg Tablet PO Q4H PRN Pain Rated 4-6 Apixaban 5 mg 03/18/25 21:00 03/20/25 09:09 Apixaban 5 Mg Tablet PO 5 mg Q12H CHANDAN Administration Clonidine HCl 0.1 mg 03/18/25 21:00 03/20/25 09:08 Clonidine Hcl 0.1 Mg Tablet PO 0.1 mg Q12HR CHANDAN Administration Dextrose 12.5 gm 03/18/25 20:09 Dextrose 50% 25 Gm/50 Ml Syringe IV PUSH PRN PRN Hypoglycemia Protocol Docusate Sodium 100 mg 03/18/25 17:00 03/20/25 09:08 Docusate Sodium 100 Mg Capsule PO 100 mg BID CHANDAN Administration Empagliflozin 10 mg 03/19/25 09:00 03/20/25 09:08 Empagliflozin 10 Mg Tablet PO 10 mg DAILY CHANDAN Administration Finasteride 5 mg 03/19/25 09:00 03/20/25 09:07 Finasteride 5 Mg Tablet PO 5 mg DAILY CHANDAN Administration Folic Acid 1 mg 03/19/25 09:00 03/20/25 09:08 Folic Acid 1 Mg Tablet PO 1 mg DAILY CHANDAN Administration Gabapentin 400 mg 03/19/25 21:00 03/19/25 21:10 Gabapentin 400 Mg Capsule PO 400 mg QHS CHANDAN Administration Glimepiride 4 mg 03/19/25 09:00 Glimepiride 2 Mg Tablet PO DAILY CHANDAN Glucagon 1 mg 03/18/25 20:09 Glucagon For Inj 1 Mg Vial IM PRN PRN Hypoglycemia Protocol Glucose 15 gm 03/18/25 20:09 Glucose Oral Gel 15 Gm Of Glucse In 37.5 Gm Tube PO PRN PRN Hypoglycemia Protocol Sodium Chloride 1,000 mls @ 125 mls/hr 03/18/25 11:25 03/20/25 00:12 Normal Saline Iv IV CONT 125 mls/hr .Q8H CHANDAN Administration Dextrose 1,000 mls @ 100 mls/hr 03/18/25 20:09 Dextrose 5% 1,000 Ml IVPB PRN PRN Hypoglycemia Protocol Insulin Aspart 2 - 5 units 03/19/25 08:00 03/20/25 08:50 Insulin Aspart (*Bkc) 100 Units/Ml SUB-Q Not Given TIDWM CHANDAN Protocol Insulin Aspart 1 - 2 units 03/18/25 21:00 03/19/25 21:11 Insulin Aspart (*Bkc) 100 Units/Ml SUB-Q 1 units HS CHANDAN Administration Protocol Lorazepam 2 mg 03/19/25 03:00 Lorazepam (*Crx) 1 Mg Tablet PO Q4HR PRN CIWA >15 Methocarbamol 500 mg 03/19/25 17:10 03/20/25 09:09 Methocarbamol 500 Mg Tablet PO 500 mg BID CHANDAN Administration Metoprolol Succinate 100 mg 03/19/25 09:00 03/20/25 09:07 Metoprolol Succinate Ext Rel 100 Mg Tabcr PO 100 mg DAILY CHANDAN Administration Morphine Sulfate 2 mg 03/18/25 11:21 Morphine Sulfate (*Crx) 2 Mg/Ml Inj IV PUSH Q2H PRN Pain Rated 7-10 Multivitamins/Calcium 1 tablet 03/19/25 09:00 03/20/25 09:08 Therapeutic Multivitamins/Minerals Tab (*Bkc) PO 1 tablet DAILY CHANDAN Administration Ondansetron HCl 4 mg 03/18/25 11:21 Ondansetron Inj 4 Mg/2 Ml Vial IV PUSH Q4H PRN Nausea Polyethylene Glycol 17 gm 03/19/25 09:00 03/20/25 09:09 Polyethylene Glycol 3350 17 Gm Powd.Pack PO 17 gm DAILY CHANDAN Administration Pravastatin Sodium 20 mg 03/18/25 21:00 03/19/25 21:09 Pravastatin Sodium 20 Mg Tablet PO 20 mg HS CHANDAN Administration Sacubitril/Valsartan 1 tab 03/18/25 23:00 03/20/25 09:08 Sacubitril/Valsartan 24-26 Mg Tablet PO 1 tab Q12HR CHANDAN Administration Senna/Docusate Sodium 1 tab 03/18/25 22:50 Senna/Docusate Sodium Tablet PO HS PRN Constipation Sitagliptin Phosphate 100 mg 03/19/25 09:00 Sitagliptin Phosphate 100 Mg Tablet PO DAILY CHANDAN Sodium Bicarbonate 650 mg 03/18/25 19:15 03/20/25 09:08 Sodium Bicarbonate Tab 650 Mg Tablet PO 650 mg TID CHANDAN Administration Thiamine HCl 100 mg 03/19/25 09:00 03/20/25 09:08 Thiamine Hcl 100 Mg Tablet PO 100 mg DAILY CHANDAN Administration Radiology Results: ITS Impressions Chest X-Ray 03/18/25 08:32 IMPRESSION: 1. Unchanged elevation of the right hemidiaphragm. No acute cardiopulmonary disease. Lumbar Spine X-Ray 03/18/25 09:35 Impression: 1: Severe lumbar spondylosis with levoscoliosis. Thoracic/Lumbar Spine CT 03/20/25 10:16 IMPRESSION: 1. Moderate to severe thoracic and lumbar spondylosis. No acute osseous adenopathy. Labs Labs: Laboratory Results - last 24 hr 03/19/25 03/19/25 03/19/25 11:57 17:51 20:13 POC Capillary Glucose 152 H 268 H 241 H 03/20/25 03/20/25 03/20/25 04:45 07:47 11:46 POC Capillary Glucose 167 H 136 H 209 H Quality VTE Prophylaxis VTE prophylaxis: mechanical ordered and pharmacologic ordered Hospitalist MIPS Advance Care Plan I have confirmed that the patient's Advanced Care Plan is present, code status is documented, or surrogate decision maker is listed in patient medical record.: Yes Medication Reconciliation I have utilized all available resources to obtain, update and review the patients current medications (includes all prescriptions, OTC, herbals, cannabis, and nutritional supplements).: Yes
[2025-03-20] MEDS: INSULIN ASPART (*BKC) 100 UNITS/ML SUB-Q ×2 (12:39→21:35)
--- NOTE | 2025-03-20 12:43 | P.CONNS_ITS ---
Assessment and Plan Assessment and plan (1) Low back pain: Code(s): M54.50 - Low back pain, unspecified Status: Acute Assessment and Plan: 79-year-old gentleman with multiple medical problems including heart disease obesity who presents with inability to ambulate for unclear etiology. It would be reasonable to obtain an MRI of the thoracic and lumbar spine to evaluate for any pathology within the thoracic or lumbar spine. That being said he is not a surgical candidate given his multiple medical comorbidities And significant obesity. he may benefit from a pain management consultation for management of his pain. My colleague Dr. Grover will be on over the weekend to follow-up on this MRI scan. Consult date: 03/20/25 Reason for consult: Evaluation of low back pain, lower extremity weakness difficulty ambulating and general failure to thrive HPI: Jewel White is a 79 year old male with multiple medical problems including atrial fibrillation, type 2 diabetes, coronary artery disease, hypertension, congestive heart failure, stage 3 chronic kidney disease who presents with a fall and difficulty getting up from that fall. He called the fire department to help them and subsequently was brought in to the hospital for evaluation. He explains he is unable to bear his own weight at this point he has known arthritis and degenerative disc disease of his low back. His BMI is 38.7. Review of Systems 2 Review of Systems: He denies any numbness and tingling in his groin saddle anesthesia a radiating pain into his extremities. He notes mainly chronic back pain PMFSH Past Medical History Medical History (Updated 03/19/25 @ 17:12 by Ramona Campuzano APRN) Obesity with alveolar hypoventilation Obesity, morbid, BMI 40.0-49.9 Chronic subdural hematoma Atrial fibrillation 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, bilateral Multinodular goiter Morbid obesity with BMI of 45.0-49.9, adult Coronary artery disease ANTONIO on CPAP Primary hypertension Chronic diastolic CHF (congestive heart failure) Non-ischemic cardiomyopathy Dyspnea on exertion Morbid obesity Cataracts, bilateral CKD (chronic kidney disease) stage 3, GFR 30-59 ml/min Chronic joint pain Type 2 diabetes mellitus Surgical History Surgical History S/P ablation of atrial fibrillation History of thyroidectomy (~02/2019) Hx of cataract extraction (~08/2020) History of skin surgery (~03/2019) 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 Family History Family History (Updated 03/18/25 @ 13:29 by Sonia Galeano RN) Father Rheumatoid arthritis Lung cancer Mother Arthritis Hypertension Obesity Diabetes mellitus Sibling Diabetes mellitus Other Rheumatoid arteritis Social History Social History (Updated 02/25/25 @ 15:38 by Ivet Davis RN) Social History: former smoker Smoking packs per day: 2 Smoking cigarettes per day: 40.0 Years smoked: 15 Smoking pack-years: 30.00 Smoking status: Former smoker Tobacco type: cigarettes Second hand tobacco smoke exposure: No Smoking end date: 08/13/74 Alcohol intake: current Drinks per week: 12 Substance use: never Substance use type: does not use Do You Feel Safe in your Home?: Yes Lack of Transportation: No Lack of Food: Never True Current Housing: I Have Housing Concerned About Future Housing: No Difficulty Paying Gas/Electric Bills: No Difficulty Paying for Meds: No Currently Unemployed: No Education: High School Diploma/GED Difficulty w/ Childcare or Family Care: No Living arrangements: alone Occupation/Education: retired Gender identity (if verbalized by the patient): Male Sexual Orientation (if Verbalized by the Patient): Straight or Heterosexual Spiritual care concerns: Yes Agree to blood products: Yes Meds Home Medications and Allergies Home Medications ?Medication ?Instructions ?Recorded ?Confirmed ?Type finasteride 5 mg tablet 5 mg PO DAILY 12/19/19 03/18/25 History sodium bicarbonate 650 mg tablet 650 mg PO TID 12/19/21 03/18/25 History chlorthalidone 25 mg tablet 25 mg PO DAILY 01/18/23 03/18/25 History empagliflozin 10 mg tablet 10 mg PO DAILY 01/18/23 03/18/25 History (Jardiance) metoprolol succinate 100 mg 100 mg PO DAILY 07/10/23 03/18/25 History tablet,extended release 24 hr sacubitril 24 mg-valsartan 26 mg 1 tablet PO BID 07/10/23 03/18/25 History tablet (Entresto) glimepiride 4 mg tablet 4 mg PO DAILY #90 tabs 05/07/24 03/18/25 Rx hydralazine 100 mg tablet 100 mg PO BID 07/14/24 03/18/25 History metformin 500 mg tablet,extended 1,000 mg (2 x 500 mg) PO BID #360 10/20/24 03/18/25 Rx release 24 hr tabs acetaminophen 325 mg tablet 650 mg PO Q6H 02/25/25 03/18/25 History amlodipine 5 mg tablet 5 mg PO DAILY 02/25/25 03/18/25 History clonidine HCl 0.1 mg tablet 0.1 mg PO BID 02/25/25 03/18/25 History methocarbamol 500 mg tablet 500 mg PO TID PRN muscle spasm 02/25/25 03/18/25 History miconazole nitrate 2 % topical 1 applic topical BID 02/25/25 03/18/25 History powder polyethylene glycol 3350 17 17 g PO DAILY 02/25/25 03/18/25 History gram/dose oral powder pravastatin 20 mg tablet 20 mg PO HS 02/25/25 03/18/25 History gabapentin 300 mg capsule 300 mg PO QHS #90 caps 02/27/25 03/18/25 Rx sitagliptin phosphate 100 mg 100 mg PO DAILY #90 tabs 03/11/25 03/18/25 Rx tablet (Januvia) apixaban 5 mg tablet (Eliquis) 5 mg PO Q12H 03/18/25 03/18/25 History levetiracetam 500 mg tablet 500 mg PO BID 03/18/25 03/18/25 History (Diamond) Allergies Allergy/AdvReac Type Severity Reaction Status Date / Time diclofenac Allergy Unknown Unknown Verified 03/18/25 13:46 Penicillins Allergy Unknown Unknown Verified 03/18/25 13:46 Vital Signs Vital Signs - 24 hr 03/19/25 16:00 03/19/25 16:00 03/19/25 20:00 Temperature 98.2 F Pulse Rate 62 Respiratory Rate 17 Blood Pressure 131/58 L 131/58 L 147/99 H Pulse Oximetry 98 Oxygen Delivery 03/19/25 20:00 03/19/25 20:11 03/19/25 20:41 Temperature 97.8 F Pulse Rate 99 Respiratory Rate 16 Blood Pressure 147/99 H Pulse Oximetry 92 92 Oxygen Delivery CPAP Room Air 03/19/25 21:45 03/20/25 00:00 03/20/25 00:07 Temperature 97.8 F Pulse Rate 94 91 Respiratory Rate 16 Blood Pressure 131/81 131/81 Pulse Oximetry 92 97 Oxygen Delivery CPAP 03/20/25 03:40 03/20/25 04:30 03/20/25 04:42 Temperature 98.5 F Pulse Rate 96 96 Respiratory Rate 18 Blood Pressure 112/81 112/81 Pulse Oximetry 94 94 Oxygen Delivery 03/20/25 07:43 03/20/25 11:48 Temperature 97.9 F 97.2 F L Pulse Rate 110 H 93 Respiratory Rate 18 17 Blood Pressure 109/82 129/84 Pulse Oximetry 94 91 Oxygen Delivery Exam 2 Narrative: the patient is lying in bed supine he is significantly obese with a large truncal obesity. He is able to move his lower extremities spontaneously and with good strength proximally with exception of diminished ability to plantar flex. He appears to be 3/5 and plantar flexion his dorsiflexion appears 4- out of 5. he does not have clonus on examination. Overall it is difficult to assess his examination given his size. I reviewed his CT thoracic and lumbar spine which shows multilevel degenerative arthritis. Results Labs 03/19/25 05:57 03/19/25 05:57
[2025-03-20] MEDS: HYDROcodone/acetaminophen (*CRX) 5-325 MG TABLET 1 TAB PO (12:51)
[2025-03-20] MEDS: SODIUM CHLORIDE 0.9% IV 500 ML IV CONT (12:51)
[2025-03-20 14:26] LABS: Hematocrit 42.2 % (42.0-52.0); Hemoglobin 13.2 g/dL (14.0-18.0); Immature Granulocyte Percent A 0.5 % (0-0.5); Lymphocytes Absolute Auto 0.40 K/mm3 (0.9-3.2); Mean Corpuscular HGB Conc 31.3 g/dl (32-36); Mean Corpuscular Hemoglobin 31.4 pg (26-34); Mean Corpuscular Volume 100.5 fl (80-100); Nucleated Red Blood Cells Absolute Auto 0.000 K/mm3 (0.0-0.012); Nucleated Red Blood Cells Perc 0.0 % (0.0-0.2); Platelet Count Result 166 k/mm3 (150-375); Red Blood Count 4.20 M/mm3 (4.6-6.20); White Blood Count 8.2 K/mm3 (4.5-10.0)
[2025-03-20 14:40] LABS: INR 1.8; Prothrombin Time 20.8 Seconds (11.1-14.7)
[2025-03-20 14:58] LABS: Anion Gap 14 mmol/L (4-12); Blood Urea Nitrogen 31 mg/dL (9-20); Calcium 8.5 mg/dL (8.4-10.2); Carbon Dioxide 18 mmol/L (22-30); Chloride 104 mmol/L (98-107); Estimated CRCL calculation 51 ml/min; Estimated Glomerular Filt Rate 41; Glucose 232 mg/dL (65-110); Potassium 4.4 mmol/L (3.4-5.0); Sodium 136 mmol/L (137-145)
[2025-03-20] MEDS: PRAVASTATIN SODIUM 20 MG TABLET PO (21:35)
[2025-03-20] MEDS: GABAPENTIN 400 MG CAPSULE PO (21:35)
[2025-03-21] VITALS (7 sets, daily range): BP systolic 103–140; BP diastolic 65–85; PULSE 69–94; RESP 16–20; TEMP 36.4–37.1; O2SAT 92–96
[2025-03-21] MEDS: SODIUM CHLORIDE 0.9% IV 1,000 ML 75 ML IV CONT (06:17)
--- NOTE | 2025-03-21 08:04 | P.PNIM_ITS ---
Progress Note: A&P Assessment and Plan (1) Low back pain: Code(s): M54.50 - Low back pain, unspecified Status: Acute Assessment and Plan: Reports that he was driving on Sunday. Woke up on Sunday and unable to lift legs easily due to pain. Has decreased sensation bilaterally chronically but feels less sensation to feet today. More difficulty voiding this morning but bladder scan still <300. Having Low back pain with intermittent spasms. 03/18 L spine xray showed Severe lumbar spondylosis with levoscoliosis 03/20 CT T & L spine without contrast showed moderate to severe thoracic and lumbar spondylosis. No acute osseous adenopathy. --MRI T/L spine without contrast pending --Added methocarbamol 500 BID for back spasms 03/19, may be helping but sleepy today, change to PRN --Gabapentin 300<400mg hs, resume 300mg --DC Vicodin. Schedule tylenol TID, oxycodone prn --Neurosurgery consulted, appreciate recommendations (2) Fall: Code(s): W19.XXXA - Unspecified fall, initial encounter Status: Acute Assessment and Plan: PT OT evaluate and treat Up with assistance Fall precautions Patient had a fall with subdural and was discharged from rehab on 03/07/2025 it appears that patient had finished his Keppra for subdural, and had restarted Eliquis (3) NICOLE (acute kidney injury): Code(s): N17.9 - Acute kidney failure, unspecified Status: Acute Assessment and Plan: Creatinine 2.47, down to 1.79 with fluids NS@125/hr>75/hr Follow BMP (4) ETOH abuse: Code(s): F10.10 - Alcohol abuse, uncomplicated Status: Acute Assessment and Plan: [facility] protocol Monitor for withdrawals (5) Primary hypertension: Code(s): I10 - Essential (primary) hypertension Status: Acute Assessment and Plan: Hold antihypertensives while doing fall workup (6) Chronic diastolic CHF (congestive heart failure): Code(s): I50.32 - Chronic diastolic (congestive) heart failure Status: Acute Assessment and Plan: Patient does not appear to be on diuretics (7) Coronary artery disease: Qualifiers: Associated angina: without angina Coronary Disease-Associated Artery/Lesion type: [place] artery [place] vs. transplanted heart: [place] heart Qualified Code(s): I25.10 - Atherosclerotic heart disease of [place] coronary artery without angina pectoris Code(s): I25.10 - Atherosclerotic heart disease of [place] coronary artery without angina pectoris Status: Acute Assessment and Plan: Continue Entresto and Eliquis and Jardiance metoprolol, statin (8) Atrial fibrillation: Code(s): I48.91 - Unspecified atrial fibrillation Status: Acute Assessment and Plan: Continue Eliquis and metoprolol (9) Type 2 diabetes mellitus with diabetic neuropathy: Qualifiers: Diabetes mellitus terminal supervisor insulin use: without terminal supervisor use Qualified Code(s): E11.40 - Type 2 diabetes mellitus with diabetic neuropathy, unspecified Code(s): E11.40 - Type 2 diabetes mellitus with diabetic neuropathy, unspecified Status: Acute Assessment and Plan: Continue Jardiance Amaryl and sitagliptin on hold SSI prn Plan Recently completed lanie after subdural hematoma Time Spent With Patient Time: 56 minutes Subjective Date/time seen: 03/21/25 08:04 Interval history: Sleepy today, reports he slept well overnight. Tired and didn't eat breakfast. Reducing gabapentin and changing methocarbamol to PRN Low grade temp overnight, 99.8, afebrile today Review of Systems Review of Systems: 12 systems were reviewed and are negativ e except for as per HPI. Exam Narrative: General - Awake and alert. No acute distress Eyes - PERRLA, EOM intact ENT - No thrush, No erythema Neck - No noticeable or palpable swelling Lymph Nodes - No lymphadenopathy Cardiovascular - RRR no m/r/g, no JVD Lungs: Clear to auscultation, No wheezing, use of accessory muscles, no crackles or wheezes. Skin - Skin warm and dry, no wounds or rashes Abdomen - Normal bowel sounds, abdomen soft and nontender Extremities - No edema, cyanosis or clubbing Musculoskeletal - 5/5 strength, normal range of motion, no swollen or erythematous joints. Neurological ? Alert and oriented x 3, Decreased sensation LE (reports chronic but slightly more decreased), Weakness and pain with straight leg raise and foot pushes. Limited by pain Psych: Normal mood and affect Objective Data Vital Signs Vital Signs: Vital Signs - 24 hr 03/20/25 11:48 03/20/25 17:10 03/20/25 20:00 Temperature 97.2 F L 98.4 F 99.8 F H Pulse Rate 93 103 H 96 Respiratory Rate 17 18 18 Blood Pressure 129/84 124/93 H 133/84 Pulse Oximetry 91 93 94 Oxygen Delivery 03/20/25 22:42 03/21/25 00:00 03/21/25 04:00 Temperature 98.7 F 98.8 F Pulse Rate 89 87 72 Respiratory Rate 18 20 Blood Pressure 115/83 117/85 Pulse Oximetry 94 92 95 Oxygen Delivery CPAP Intake/Output Intake/Output: Intake & Output 03/18/25 03/19/25 03/20/25 03/21/25 23:59 23:59 23:59 23:59 Intake Total 2120 3856.1 4610.8 729.2 Output Total 350 1450 1000 775 Balance 1770 2406.1 3610.8 -45.8 Meds/Results Medications: Active Medications Generic Name Dose Route Start Last Admin Trade Name Freq PRN Reason Stop Dose Admin Acetaminophen 650 mg 03/18/25 11:21 Acetaminophen 325 Mg Tablet PO Q4H PRN Mild Pain (1-3) or Fever Hydrocodone Bitart/Acetaminophen 1 tab 03/18/25 11:21 03/20/25 12:51 Hydrocodone/Acetaminophen (*Crx) 5-325 Mg Tablet PO 1 tab Q4H PRN Administration Pain Rated 4-6 Apixaban 5 mg 03/18/25 21:00 03/20/25 21:35 Apixaban 5 Mg Tablet PO 5 mg Q12H CHANDAN Administration Clonidine HCl 0.1 mg 03/18/25 21:00 03/20/25 21:35 Clonidine Hcl 0.1 Mg Tablet PO 0.1 mg Q12HR CHANDAN Administration Dextrose 12.5 gm 03/18/25 20:09 Dextrose 50% 25 Gm/50 Ml Syringe IV PUSH PRN PRN Hypoglycemia Protocol Docusate Sodium 100 mg 03/18/25 17:00 03/20/25 17:05 Docusate Sodium 100 Mg Capsule PO 100 mg BID CHANDAN Administration Empagliflozin 10 mg 03/19/25 09:00 03/20/25 09:08 Empagliflozin 10 Mg Tablet PO 10 mg DAILY CHANDAN Administration Finasteride 5 mg 03/19/25 09:00 03/20/25 09:07 Finasteride 5 Mg Tablet PO 5 mg DAILY CHANDAN Administration Folic Acid 1 mg 03/19/25 09:00 03/20/25 09:08 Folic Acid 1 Mg Tablet PO 1 mg DAILY CHANDAN Administration Gabapentin 400 mg 03/19/25 21:00 03/20/25 21:35 Gabapentin 400 Mg Capsule PO 400 mg QHS CHANDAN Administration Glimepiride 4 mg 03/19/25 09:00 Glimepiride 2 Mg Tablet PO DAILY CHANDAN Glucagon 1 mg 03/18/25 20:09 Glucagon For Inj 1 Mg Vial IM PRN PRN Hypoglycemia Protocol Glucose 15 gm 03/18/25 20:09 Glucose Oral Gel 15 Gm Of Glucse In 37.5 Gm Tube PO PRN PRN Hypoglycemia Protocol Sodium Chloride 1,000 mls @ 75 mls/hr 03/18/25 11:25 03/21/25 06:17 Normal Saline Iv IV CONT 75 mls/hr .[id number] CHANDAN Administration Dextrose 1,000 mls @ 100 mls/hr 03/18/25 20:09 Dextrose 5% 1,000 Ml IVPB PRN PRN Hypoglycemia Protocol Insulin Aspart 2 - 5 units 03/19/25 08:00 03/21/25 08:03 Insulin Aspart (*Bkc) 100 Units/Ml SUB-Q Not Given TIDWM CHANDAN Protocol Insulin Aspart 1 - 2 units 03/18/25 21:00 03/20/25 21:35 Insulin Aspart (*Bkc) 100 Units/Ml SUB-Q 1 units HS CHANDAN Administration Protocol Lorazepam 2 mg 03/19/25 03:00 Lorazepam (*Crx) 1 Mg Tablet PO Q4HR PRN CIWA >15 Methocarbamol 500 mg 03/19/25 17:10 03/20/25 17:05 Methocarbamol 500 Mg Tablet PO 500 mg BID CHANDAN Administration Metoprolol Succinate 100 mg 03/19/25 09:00 03/20/25 09:07 Metoprolol Succinate Ext Rel 100 Mg Tabcr PO 100 mg DAILY CHANDAN Administration Morphine Sulfate 2 mg 03/18/25 11:21 Morphine Sulfate (*Crx) 2 Mg/Ml Inj IV PUSH Q2H PRN Pain Rated 7-10 Multivitamins/Calcium 1 tablet 03/19/25 09:00 03/20/25 09:08 Therapeutic Multivitamins/Minerals Tab (*Bkc) PO 1 tablet DAILY CHANDAN Administration Ondansetron HCl 4 mg 03/18/25 11:21 Ondansetron Inj 4 Mg/2 Ml Vial IV PUSH Q4H PRN Nausea Polyethylene Glycol 17 gm 03/19/25 09:00 03/20/25 09:09 Polyethylene Glycol 3350 17 Gm Powd.Pack PO 17 gm DAILY CHANDAN Administration Pravastatin Sodium 20 mg 03/18/25 21:00 03/20/25 21:35 Pravastatin Sodium 20 Mg Tablet PO 20 mg HS CHANDAN Administration Sacubitril/Valsartan 1 tab 03/18/25 23:00 03/20/25 21:35 Sacubitril/Valsartan 24-26 Mg Tablet PO 1 tab Q12HR CHANDAN Administration Senna/Docusate Sodium 1 tab 03/18/25 22:50 Senna/Docusate Sodium Tablet PO HS PRN Constipation Sitagliptin Phosphate 100 mg 03/19/25 09:00 Sitagliptin Phosphate 100 Mg Tablet PO DAILY CHANDAN Sodium Bicarbonate 650 mg 03/18/25 19:15 03/20/25 17:05 Sodium Bicarbonate Tab 650 Mg Tablet PO 650 mg TID CHANDAN Administration Thiamine HCl 100 mg 03/19/25 09:00 03/20/25 09:08 Thiamine Hcl 100 Mg Tablet PO 100 mg DAILY CHANDAN Administration Radiology Results: ITS Impressions Chest X-Ray 03/18/25 08:32 IMPRESSION: 1. Unchanged elevation of the right hemidiaphragm. No acute cardiopulmonary disease. Lumbar Spine X-Ray 03/18/25 09:35 Impression: 1: Severe lumbar spondylosis with levoscoliosis. Thoracic/Lumbar Spine CT 03/20/25 10:16 IMPRESSION: 1. Moderate to severe thoracic and lumbar spondylosis. No acute osseous adenopathy. Labs Labs: Laboratory Results - last 24 hr 03/20/25 03/20/25 03/20/25 07:47 11:46 14:19 WBC 8.2 RBC 4.20 L Hgb 13.2 L Hct 42.2 MCV 100.5 H MCH 31.4 MCHC 31.3 L RDW 14.7 H Plt Count 166 MPV 10.2 Immature Gran % (Auto) 0.5 Neut % (Auto) 82.4 H Lymph % (Auto) 4.9 L [place] % (Auto) 11.5 H Eos % (Auto) 0.5 Baso % (Auto) 0.2 Lymph # (Auto) 0.40 L [place] # (Auto) 0.9 H Eos # (Auto) 0.0 Baso # (Auto) 0.0 Abs Immat Gran (auto) 0.04 H Absolute Neuts (auto) 6.8 H Absolute Nucleated RBC 0.000 Nucleated RBC % 0.0 PT 20.8 H INR 1.8 Sodium 136 L Potassium 4.4 Chloride 104 Carbon Dioxide 18 L Anion Gap 14 H BUN 31 H Creatinine 1.63 H Estim Creat Clear Calc 51 Estimated GFR 41 L Glucose 232 H POC Capillary Glucose 136 H 209 H Calcium 8.5 Blood Type O Positive Antibody Screen Negative 03/20/25 03/20/25 03/21/25 16:53 20:29 07:42 WBC RBC Hgb Hct MCV MCH MCHC RDW Plt Count MPV Immature Gran % (Auto) Neut % (Auto) Lymph % (Auto) [place] % (Auto) Eos % (Auto) Baso % (Auto) Lymph # (Auto) [place] # (Auto) Eos # (Auto) Baso # (Auto) Abs Immat Gran (auto) Absolute Neuts (auto) Absolute Nucleated RBC Nucleated RBC % PT INR Sodium Potassium Chloride Carbon Dioxide Anion Gap BUN Creatinine Estim Creat Clear Calc Estimated GFR Glucose POC Capillary Glucose 187 H 203 H 117 H Calcium Blood Type Antibody Screen Quality VTE Prophylaxis VTE prophylaxis: mechanical ordered and pharmacologic ordered Hospitalist MIPS Advance Care Plan I have confirmed that the patient's Advanced Care Plan is present, code status is documented, or surrogate decision maker is listed in patient medical record.: Yes Medication Reconciliation I have utilized all available resources to obtain, update and review the patients current medications (includes all prescriptions, OTC, herbals, cannabis, and nutritional supplements).: Yes
[2025-03-21] MEDS: SODIUM BICARBONATE TAB 650 MG TABLET PO ×3 (09:51→17:25)
[2025-03-21] MEDS: FOLIC ACID 1 MG TABLET PO (09:51)
[2025-03-21] MEDS: THERAPEUTIC MULTIVITAMINS/MINERALS TAB (*BKC) 1 TABLET PO (09:51)
[2025-03-21] MEDS: FINASTERIDE 5 MG TABLET PO (09:52)
[2025-03-21] MEDS: SACUBITRIL/VALSARTAN 24-26 MG TABLET 1 TAB PO ×2 (09:52→20:25)
[2025-03-21] MEDS: DOCUSATE SODIUM 100 MG CAPSULE PO ×2 (09:52→17:25)
[2025-03-21] MEDS: METOPROLOL SUCCINATE EXT REL 100 MG TABCR PO (09:52)
[2025-03-21] MEDS: THIAMINE HCL 100 MG TABLET PO (09:52)
[2025-03-21] MEDS: EMPAGLIFLOZIN 10 MG TABLET PO (09:52)
[2025-03-21] MEDS: APIXABAN 5 MG TABLET PO ×2 (09:52→20:25)
--- NOTE | 2025-03-21 16:08 | PCPTNOTE ---
Neurosurgery consult from 03/20 ordered MRI thoracic and lumbar spine with instructions for weekend neurosurgery follow up. Follow-up notation has not been submitted. Held Eval to await clarification of situation post imaging
[2025-03-21 16:33] LABS: Add Urine Microscopic? YES; Appearance Urine Clear (Clear); Glucose Urine UA 3+ mg/dL (Negative); Leukocyte Esterase Ur Negative LEU/UL (Negative); Nitrate Urine Negative (Negative); Specific Grav Ur 1.022 (1.001-1.035)
[2025-03-21] MEDS: ACETAMINOPHEN 500 MG TABLET 1000 MG PO (17:25)
[2025-03-21] MEDS: PRAVASTATIN SODIUM 20 MG TABLET PO (20:25)
[2025-03-21] MEDS: ACETAMINOPHEN 325 MG TABLET 650 MG PO (20:25)
[2025-03-21] MEDS: GABAPENTIN 300 MG CAPSULE PO (20:25)
[2025-03-22] VITALS (9 sets, daily range): BP systolic 110–124; BP diastolic 74–99; PULSE 76–98; RESP 18; TEMP 36.4–37; O2SAT 93–98
[2025-03-22] MEDS: SODIUM CHLORIDE 0.9% IV 1,000 ML 75 ML IV CONT (03:48)
[2025-03-22 07:17] LABS: Hematocrit 39.4 % (42.0-52.0); Hemoglobin 12.3 g/dL (14.0-18.0); Immature Granulocyte Percent A 0.4 % (0-0.5); Lymphocytes Absolute Auto 0.52 K/mm3 (0.9-3.2); Mean Corpuscular HGB Conc 31.2 g/dl (32-36); Mean Corpuscular Hemoglobin 31.3 pg (26-34); Mean Corpuscular Volume 100.3 fl (80-100); Nucleated Red Blood Cells Absolute Auto 0.000 K/mm3 (0.0-0.012); Nucleated Red Blood Cells Perc 0.0 % (0.0-0.2); Platelet Count Result 141 k/mm3 (150-375); Red Blood Count 3.93 M/mm3 (4.6-6.20); White Blood Count 5.5 K/mm3 (4.5-10.0)
[2025-03-22 07:23] LABS: CRP 18.0 mg/dL (<1.0)
--- NOTE | 2025-03-22 07:26 | P.PNIM_ITS ---
Progress Note: A&P Assessment and Plan (1) Low back pain: Code(s): M54.50 - Low back pain, unspecified Status: Acute Assessment and Plan: Reports that he was driving on Sunday. Woke up on Sunday and unable to lift legs easily due to pain. Has decreased sensation bilaterally chronically but feels less sensation to feet today. More difficulty voiding this morning but bladder scan still <300. Having Low back pain with intermittent spasms. 03/18 L spine xray showed Severe lumbar spondylosis with levoscoliosis 03/20 CT T & L spine without contrast showed moderate to severe thoracic and lumbar spondylosis. No acute osseous adenopathy. --MRI T/L spine without contrast pending --Added methocarbamol 500 BID for back spasms 03/19, may be helping but very sleepy so changed to PRN --Gabapentin 300<400mg hs, resumed 300mg for oversedation --DC'd Vicodin. Scheduled tylenol TID, oxycodone 2.5-5mg prn --Neurosurgery consulted, appreciate recommendations --Repeat MRI L spine with and without contrast now that NICOLE resolved --CT bone biopsy for diskitis/osteomyelitis. Hold apixaban, last dose AM 03/22 8:34am. Could be 03/24 or 03/25 pending results of MRI with and without contrast. Discussion with radiology --Monitoring off antibiotics pending biopsy 03/21 MRI T/L spine 1. Prominent increased T2 disc signal and adjacent marrow signal changes at L4 and L5 with significantly greater degree of T1 fat signal loss than expected particularly without evident sclerosis on the prior CT to account for the signal loss and with small endplate erosions and surrounding mild soft tissue edema raising a high level of concern for discitis and osteomyelitis. Dr. Del Toro discussed these findings with Dr. Whitehead the neurosurgeon covering for the patient at 2:30 PM. 2. Moderate to severe lower lumbar predominant spondylosis. (2) Fall: Code(s): W19.XXXA - Unspecified fall, initial encounter Status: Acute Assessment and Plan: PT OT evaluate and treat Up with assistance Fall precautions Patient had a fall with subdural and was discharged from rehab on 03/07/2025 it appears that patient had finished his Keppra for subdural, and had restarted Eliquis--holding for biopsy (3) NICOLE (acute kidney injury): Code(s): N17.9 - Acute kidney failure, unspecified Status: Acute Assessment and Plan: Creatinine 2.47, down to 1.79>1.35 with fluids NS@125/hr>75/hr Follow BMP (4) ETOH abuse: Code(s): F10.10 - Alcohol abuse, uncomplicated Status: Acute Assessment and Plan: [facility] protocol Monitor for withdrawals (5) Primary hypertension: Code(s): I10 - Essential (primary) hypertension Status: Acute Assessment and Plan: Hold antihypertensives while doing fall workup (6) Chronic diastolic CHF (congestive heart failure): Code(s): I50.32 - Chronic diastolic (congestive) heart failure Status: Acute Assessment and Plan: Patient does not appear to be on diuretics (7) Coronary artery disease: Qualifiers: Associated angina: without angina Coronary Disease-Associated Artery/Lesion type: [place] artery [place] vs. transplanted heart: [place] heart Qualified Code(s): I25.10 - Atherosclerotic heart disease of [place] coronary artery without angina pectoris Code(s): I25.10 - Atherosclerotic heart disease of [place] coronary artery without angina pectoris Status: Acute Assessment and Plan: --Continued Entresto and Jardiance metoprolol, statin --Holding Eliquis (8) Atrial fibrillation: Code(s): I48.91 - Unspecified atrial fibrillation Status: Acute Assessment and Plan: Continue metoprolol --Hold eliquis for possible CT guided bone biopsy (9) Type 2 diabetes mellitus with diabetic neuropathy: Qualifiers: Diabetes mellitus 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 Some possible improvement in weakness. Was walking prior to admission. Concern for diskitis/osteomyelitis on noncontrast MRI Repeating MRI L spine with contrast now that NICOLE resolved Monitoring off antibiotics pending culture. Voiding Discussed with neurosurgery. Consulting ID, checking blood cultures Review of Systems Review of Systems: 12 systems were reviewed and are negativ e except for as per HPI. Exam Narrative: General - Awake and alert. No acute distress Eyes - PERRLA, EOM intact ENT - No thrush, No erythema Neck - No noticeable or palpable swelling Lymph Nodes - No lymphadenopathy Cardiovascular - RRR no m/r/g, no JVD Lungs: Clear to auscultation, No wheezing, use of accessory muscles, no crackles or wheezes. Skin - Skin warm and dry, no wounds or rashes Abdomen - Normal bowel sounds, abdomen soft and nontender Extremities - No edema, cyanosis or clubbing Musculoskeletal - 5/5 strength, normal range of motion, no swollen or erythematous joints. Neurological ? Alert and oriented x 3, Decreased sensation LE (reports chronic but slightly more decreased), Left leg weaker than right, minimal resistance sitting in chair, knee extension 3/5 & 4/5, plantar flexion slightly improved, 4/5. Psych: Normal mood and affect Objective Data Vital Signs Vital Signs: Vital Signs - 24 hr 03/21/25 08:00 03/21/25 08:00 03/21/25 12:00 Temperature 98.8 F 98.8 F Pulse Rate 69 94 Respiratory Rate 18 18 Blood Pressure 103/66 111/72 Pulse Oximetry 96 95 Oxygen Delivery Room Air Fraction of Inspired Oxygen 03/21/25 16:00 03/21/25 20:00 03/21/25 20:00 Temperature 98.8 F 97.6 F Pulse Rate 85 71 80 Respiratory Rate 18 16 20 Blood Pressure 124/65 140/83 Pulse Oximetry 96 96 94 Oxygen Delivery Room Air Fraction of Inspired Oxygen 03/21/25 21:31 03/22/25 00:15 03/22/25 00:30 Temperature 98.1 F Pulse Rate 80 80 90 Respiratory Rate 20 18 Blood Pressure 124/83 Pulse Oximetry 94 98 95 Oxygen Delivery Room Air CPAP Fraction of Inspired Oxygen 03/22/25 02:32 03/22/25 04:03/22/25 04:28 Temperature 98.6 F Pulse Rate 92 76 90 Respiratory Rate 18 Blood Pressure 116/99 H Pulse Oximetry 94 95 95 Oxygen Delivery CPAP CPAP Fraction of Inspired Oxygen Intake/Output Intake/Output: Intake & Output 03/19/25 03/20/25 03/21/25 03/22/25 23:59 23:59 23:59 23:59 Intake Total 3856.1 4610.8 2449.2 Output Total 1450 1000 1275 600 Balance 2406.1 3610.8 1174.2 -600 Meds/Results Medications: Active Medications Generic Name Dose Route Start Last Admin Trade Name Freq PRN Reason Stop Dose Admin Acetaminophen 650 mg 03/18/25 11:21 03/21/25 20:25 Acetaminophen 325 Mg Tablet PO 650 mg Q4H PRN Administration Mild Pain (1-3) or Fever Acetaminophen 1,000 mg 03/21/25 17:00 03/21/25 17:25 Acetaminophen 500 Mg Tablet PO 1,000 mg TID CHANDAN Administration Apixaban 5 mg 03/18/25 21:00 03/21/25 20:25 Apixaban 5 Mg Tablet PO 5 mg Q12H CHANDAN Administration Clonidine HCl 0.1 mg 03/18/25 21:00 03/21/25 20:25 Clonidine Hcl 0.1 Mg Tablet PO 0.1 mg Q12HR CHANDAN Administration Dextrose 12.5 gm 03/18/25 20:09 Dextrose 50% 25 Gm/50 Ml Syringe IV PUSH PRN PRN Hypoglycemia Protocol Docusate Sodium 100 mg 03/18/25 17:00 03/21/25 17:25 Docusate Sodium 100 Mg Capsule PO 100 mg BID CHANDAN Administration Empagliflozin 10 mg 03/19/25 09:00 03/21/25 09:52 Empagliflozin 10 Mg Tablet PO 10 mg DAILY CHANDAN Administration Finasteride 5 mg 03/19/25 09:00 03/21/25 09:52 Finasteride 5 Mg Tablet PO 5 mg DAILY CHANDAN Administration Folic Acid 1 mg 03/19/25 09:00 03/21/25 09:51 Folic Acid 1 Mg Tablet PO 1 mg DAILY CHANDAN Administration Gabapentin 300 mg 03/21/25 21:00 03/21/25 20:25 Gabapentin 300 Mg Capsule PO 300 mg QHS CHANDAN Administration Glimepiride 4 mg 03/19/25 09:00 Glimepiride 2 Mg Tablet PO DAILY CHANDAN Glucagon 1 mg 03/18/25 20:09 Glucagon For Inj 1 Mg Vial IM PRN PRN Hypoglycemia Protocol Glucose 15 gm 03/18/25 20:09 Glucose Oral Gel 15 Gm Of Glucse In 37.5 Gm Tube PO PRN PRN Hypoglycemia Protocol Sodium Chloride 1,000 mls @ 75 mls/hr 03/18/25 11:25 03/22/25 03:48 Normal Saline Iv IV CONT 75 mls/hr .[id number] CHANDAN Administration Dextrose 1,000 mls @ 100 mls/hr 03/18/25 20:09 Dextrose 5% 1,000 Ml IVPB PRN PRN Hypoglycemia Protocol Insulin Aspart 2 - 5 units 03/19/25 08:00 03/21/25 16:37 Insulin Aspart (*Bkc) 100 Units/Ml SUB-Q Not Given TIDWM [facility] Protocol Insulin Aspart 1 - 2 units 03/18/25 21:00 03/21/25 20:26 Insulin Aspart (*Bkc) 100 Units/Ml SUB-Q Not Given HS [facility] Protocol Lorazepam 2 mg 03/19/25 03:00 Lorazepam (*Crx) 1 Mg Tablet PO Q4HR PRN CIWA >15 Methocarbamol 500 mg 03/21/25 11:19 Methocarbamol 500 Mg Tablet PO BID PRN Muscle Spasm Metoprolol Succinate 100 mg 03/19/25 09:00 03/21/25 09:52 Metoprolol Succinate Ext Rel 100 Mg Tabcr PO 100 mg DAILY CHANDAN Administration Morphine Sulfate 2 mg 03/18/25 11:21 Morphine Sulfate (*Crx) 2 Mg/Ml Inj IV PUSH Q2H PRN Pain Rated 7-10 Multivitamins/Calcium 1 tablet 03/19/25 09:00 03/21/25 09:51 Therapeutic Multivitamins/Minerals Tab (*Bkc) PO 1 tablet DAILY CHANDAN Administration Ondansetron HCl 4 mg 03/18/25 11:21 Ondansetron Inj 4 Mg/2 Ml Vial IV PUSH Q4H PRN Nausea Oxycodone HCl 2.5 mg 03/21/25 14:19 Oxycodone Hcl (*Crx) 2.5 Mg Tab Ir PO Q4H PRN Pain Rated 4-6 Oxycodone HCl 5 mg 03/21/25 14:19 Oxycodone Hcl (*Crx) 5 Mg Tab Ir PO Q4H PRN Pain Rated 7-10 Polyethylene Glycol 17 gm 03/19/25 09:00 03/21/25 09:51 Polyethylene Glycol 3350 17 Gm Powd.Pack PO 17 gm DAILY CHANDAN Administration Pravastatin Sodium 20 mg 03/18/25 21:00 03/21/25 20:25 Pravastatin Sodium 20 Mg Tablet PO 20 mg HS CHANDAN Administration Sacubitril/Valsartan 1 tab 03/18/25 23:00 03/21/25 20:25 Sacubitril/Valsartan 24-26 Mg Tablet PO 1 tab Q12HR CHANDAN Administration Senna/Docusate Sodium 1 tab 03/18/25 22:50 Senna/Docusate Sodium Tablet PO HS PRN Constipation Sitagliptin Phosphate 100 mg 03/19/25 09:00 Sitagliptin Phosphate 100 Mg Tablet PO DAILY CHANDAN Sodium Bicarbonate 650 mg 03/18/25 19:15 03/21/25 17:25 Sodium Bicarbonate Tab 650 Mg Tablet PO 650 mg TID CHANDAN Administration Thiamine HCl 100 mg 03/19/25 09:00 03/21/25 09:52 Thiamine Hcl 100 Mg Tablet PO 100 mg DAILY CHANDAN Administration Radiology Results: ITS Impressions Chest X-Ray 03/18/25 08:32 IMPRESSION: 1. Unchanged elevation of the right hemidiaphragm. No acute cardiopulmonary disease. Lumbar Spine X-Ray 03/18/25 09:35 Impression: 1: Severe lumbar spondylosis with levoscoliosis. Thoracic/Lumbar Spine CT 03/20/25 10:16 IMPRESSION: 1. Moderate to severe thoracic and lumbar spondylosis. No acute osseous adenopathy. Thoracic Spine MRI 03/21/25 13:50 IMPRESSION: 1. Moderate thoracic spondylosis. Lumbar Spine MRI 03/21/25 14:14 IMPRESSION: 1. Prominent increased T2 disc signal and adjacent marrow signal changes at L4 and L5 with significantly greater degree of T1 fat signal loss than expected particularly without evident sclerosis on the prior CT to account for the signal loss and with small endplate erosions and surrounding mild soft tissue edema raising a high level of concern for discitis and osteomyelitis. Dr. Del Toro discussed these findings with Dr. Whitehead the neurosurgeon covering for the patient at 2:30 PM. 2. Moderate to severe lower lumbar predominant spondylosis. Labs Labs: Laboratory Results - last 24 hr 0803/21/25 03/21/25 07:42 11:46 16:16 WBC RBC Hgb Hct MCV MCH MCHC RDW Plt Count MPV Immature Gran % (Auto) Neut % (Auto) Lymph % (Auto) [place] % (Auto) Eos % (Auto) Baso % (Auto) Lymph # (Auto) [place] # (Auto) Eos # (Auto) Baso # (Auto) Abs Immat Gran (auto) Absolute Neuts (auto) Absolute Nucleated RBC Nucleated RBC % ESR POC Capillary Glucose 117 H 147 H C-Reactive Protein Urine Color Yellow Urine Appearance Clear Urine pH 5.0 Ur Specific [place] 1.022 Urine Protein Trace Urine Glucose (UA) 3+ H Urine Ketones Trace H Ur Blood (Man) Negative Urine Nitrate Negative Urine Bilirubin Negative Urine Urobilinogen 1.0 Leukocyte Esterase Rfl Negative Urine RBC 0-2 Urine WBC 0-5 Ur Squamous Epith Cells None seen Urine Bacteria None seen Urine Casts 3-5 03/21/25 03/21/25 03/22/25 16:21 20:18 06:07 WBC 5.5 RBC 3.93 L Hgb 12.3 L Hct 39.4 L MCV 100.3 H MCH 31.3 MCHC 31.2 L RDW 14.4 Plt Count 141 L MPV 10.3 Immature Gran % (Auto) 0.4 Neut % (Auto) 74.8 H Lymph % (Auto) 9.4 L [place] % (Auto) 13.2 H Eos % (Auto) 2.0 Baso % (Auto) 0.2 Lymph # (Auto) 0.52 L [place] # (Auto) 0.7 H Eos # (Auto) 0.1 Baso # (Auto) 0.0 Abs Immat Gran (auto) 0.02 Absolute Neuts (auto) 4.1 Absolute Nucleated RBC 0.000 Nucleated RBC % 0.0 ESR POC Capillary Glucose 189 H 182 H C-Reactive Protein Cancelled Urine Color Urine Appearance Urine pH Ur Specific [place] Urine Protein Urine Glucose (UA) Urine Ketones Ur Blood (Man) Urine Nitrate Urine Bilirubin Urine Urobilinogen Leukocyte Esterase Rfl Urine RBC Urine WBC Ur Squamous Epith Cells Urine Bacteria Urine Casts 03/22/25 06:11 WBC RBC Hgb Hct MCV MCH MCHC RDW Plt Count MPV Immature Gran % (Auto) Neut % (Auto) Lymph % (Auto) [place] % (Auto) Eos % (Auto) Baso % (Auto) Lymph # (Auto) [place] # (Auto) Eos # (Auto) Baso # (Auto) Abs Immat Gran (auto) Absolute Neuts (auto) Absolute Nucleated RBC Nucleated RBC % ESR 56 H POC Capillary Glucose C-Reactive Protein 18.0 H Urine Color Urine Appearance Urine pH Ur Specific [place] Urine Protein Urine Glucose (UA) Urine Ketones Ur Blood (Man) Urine Nitrate Urine Bilirubin Urine Urobilinogen Leukocyte Esterase Rfl Urine RBC Urine WBC Ur Squamous Epith Cells Urine Bacteria Urine Casts Quality VTE Prophylaxis VTE prophylaxis: mechanical ordered and pharmacologic ordered Hospitalist MIPS Advance Care Plan I have confirmed that the patient's Advanced Care Plan is present, code status is documented, or surrogate decision maker is listed in patient medical record.: Yes Medication Reconciliation I have utilized all available resources to obtain, update and review the patients current medications (includes all prescriptions, OTC, herbals, cannabis, and nutritional supplements).: Yes
[2025-03-22 07:29] LABS: Alanine Aminotransferase 40 U/L (6-50); Albumin Level 2.6 g/dL (3.5-5.1); Alkaline Phosphatase 75 U/L (38-126); Anion Gap 11 mmol/L (4-12); Aspartate Amino Transferase 54 U/L (17-59); Bilirubin,Total 1.5 mg/dL (0.2-1.3); Blood Urea Nitrogen 31 mg/dL (9-20); Calcium 8.2 mg/dL (8.4-10.2); Carbon Dioxide 20 mmol/L (22-30); Chloride 106 mmol/L (98-107); Estimated CRCL calculation 61 ml/min; Estimated Glomerular Filt Rate 51; Glucose 121 mg/dL (65-110); Potassium 4.2 mmol/L (3.4-5.0); Sodium 137 mmol/L (137-145); Total Protein 4.9 g/dL (6.3-8.2)
[2025-03-22] MEDS: THIAMINE HCL 100 MG TABLET PO (08:34)
[2025-03-22] MEDS: EMPAGLIFLOZIN 10 MG TABLET PO (08:34)
[2025-03-22] MEDS: METOPROLOL SUCCINATE EXT REL 100 MG TABCR PO (08:34)
[2025-03-22] MEDS: SACUBITRIL/VALSARTAN 24-26 MG TABLET 1 TAB PO ×2 (08:34→20:13)
[2025-03-22] MEDS: DOCUSATE SODIUM 100 MG CAPSULE PO ×2 (08:34→16:47)
[2025-03-22] MEDS: THERAPEUTIC MULTIVITAMINS/MINERALS TAB (*BKC) 1 TABLET PO (08:34)
[2025-03-22] MEDS: APIXABAN 5 MG TABLET PO (08:34)
[2025-03-22] MEDS: FOLIC ACID 1 MG TABLET PO (08:34)
[2025-03-22] MEDS: FINASTERIDE 5 MG TABLET PO (08:34)
[2025-03-22] MEDS: ACETAMINOPHEN 500 MG TABLET 1000 MG PO ×3 (08:34→16:47)
[2025-03-22] MEDS: SODIUM BICARBONATE TAB 650 MG TABLET PO ×3 (08:34→16:47)
[2025-03-22] MEDS: PRAVASTATIN SODIUM 20 MG TABLET PO (20:12)
[2025-03-22] MEDS: GABAPENTIN 300 MG CAPSULE PO (20:12)
[2025-03-23] VITALS: BP 111/88; PULSE 91; RESP 18; TEMP 36.6; O2SAT 94
[2025-03-23] MEDS: SODIUM CHLORIDE 0.9% IV 1,000 ML 75 ML IV CONT ×2 (01:46→15:28)
[2025-03-23 04:00] VITALS: BP 116/90; PULSE 89; RESP 18; TEMP 36.5; O2SAT 99
[2025-03-23 06:19] LABS: Hematocrit 38.8 % (42.0-52.0); Hemoglobin 12.2 g/dL (14.0-18.0); Immature Granulocyte Percent A 0.6 % (0-0.5); Lymphocytes Absolute Auto 0.63 K/mm3 (0.9-3.2); Mean Corpuscular HGB Conc 31.4 g/dl (32-36); Mean Corpuscular Hemoglobin 31.4 pg (26-34); Mean Corpuscular Volume 100.0 fl (80-100); Nucleated Red Blood Cells Absolute Auto 0.000 K/mm3 (0.0-0.012); Nucleated Red Blood Cells Perc 0.0 % (0.0-0.2); Platelet Count Result 152 k/mm3 (150-375); Red Blood Count 3.88 M/mm3 (4.6-6.20); White Blood Count 4.8 K/mm3 (4.5-10.0)
[2025-03-23 06:29] LABS: Alanine Aminotransferase 51 U/L (6-50); Albumin Level 2.9 g/dL (3.5-5.1); Alkaline Phosphatase 85 U/L (38-126); Anion Gap 4 mmol/L (4-12); Aspartate Amino Transferase 46 U/L (17-59); Bilirubin,Total 1.1 mg/dL (0.2-1.3); Blood Urea Nitrogen 28 mg/dL (9-20); Calcium 8.2 mg/dL (8.4-10.2); Carbon Dioxide 22 mmol/L (22-30); Chloride 106 mmol/L (98-107); Estimated CRCL calculation 65 ml/min; Estimated Glomerular Filt Rate 55; Glucose 118 mg/dL (65-110); Potassium 4.0 mmol/L (3.4-5.0); Sodium 132 mmol/L (137-145); Total Protein 5.5 g/dL (6.3-8.2)
[2025-03-23 08:00] VITALS: BP 120/82; PULSE 82; RESP 18; TEMP 36.5; O2SAT 99
[2025-03-23] MEDS: SACUBITRIL/VALSARTAN 24-26 MG TABLET 1 TAB PO ×2 (08:51→20:47)
[2025-03-23] MEDS: FOLIC ACID 1 MG TABLET PO (08:51)
[2025-03-23] MEDS: FINASTERIDE 5 MG TABLET PO (08:51)
[2025-03-23] MEDS: DOCUSATE SODIUM 100 MG CAPSULE PO ×2 (08:51→16:58)
[2025-03-23] MEDS: METOPROLOL SUCCINATE EXT REL 100 MG TABCR PO (08:51)
[2025-03-23] MEDS: ACETAMINOPHEN 500 MG TABLET 1000 MG PO ×3 (08:51→16:58)
[2025-03-23] MEDS: THIAMINE HCL 100 MG TABLET PO (08:52)
[2025-03-23] MEDS: EMPAGLIFLOZIN 10 MG TABLET PO (08:52)
[2025-03-23] MEDS: SODIUM BICARBONATE TAB 650 MG TABLET PO ×3 (08:52→16:58)
[2025-03-23] MEDS: THERAPEUTIC MULTIVITAMINS/MINERALS TAB (*BKC) 1 TABLET PO (08:52)
--- NOTE | 2025-03-23 10:10 | P.PNIM_ITS ---
Progress Note: A&P Assessment and Plan (1) Low back pain: Code(s): M54.50 - Low back pain, unspecified Status: Acute Assessment and Plan: * Reports that he was driving on Sunday. Woke up on Sunday and unable to lift legs easily due to pain. Has decreased sensation bilaterally chronically but feels less sensation to feet today. More difficulty voiding this morning but bladder scan still <300. Having Low back pain with intermittent spasms. * 03/18 L spine xray showed Severe lumbar spondylosis with levoscoliosis * 03/20 CT T & L spine without contrast showed moderate to severe thoracic and lumbar spondylosis. No acute osseous adenopathy. * MRI T/L spine without contrast pending * Added methocarbamol 500 BID for back spasms 03/19, may be helping but very sleepy so changed to PRN * Gabapentin 300<400mg hs, resumed 300mg for oversedation * DC'd Vicodin. Scheduled tylenol TID, oxycodone 2.5-5mg prn * Neurosurgery consulted, appreciate recommendations * Repeat MRI L spine with and without contrast now that NICOLE resolved * CT bone biopsy for diskitis/osteomyelitis. Hold apixaban, last dose AM 03/22 8:34am. Could be 03/24 or 03/25 pending results of MRI with and without contrast. Discussion with radiology * Monitoring off antibiotics pending biopsy 03/21 MRI T/L spine 1. Prominent increased T2 disc signal and adjacent marrow signal changes at L4 and L5 with significantly greater degree of T1 fat signal loss than expected particularly without evident sclerosis on the prior CT to account for the signal loss and with small endplate erosions and surrounding mild soft tissue edema raising a high level of concern for discitis and osteomyelitis. Dr. Del Toro discussed these findings with Dr. Whitehead the neurosurgeon covering for the patient at 2:30 PM. 2. Moderate to severe lower lumbar predominant spondylosis. (2) Fall: Code(s): W19.XXXA - Unspecified fall, initial encounter Status: Acute Assessment and Plan: * PT OT evaluate and treat * Up with assistance * Fall precautions * Patient had a fall with subdural and was discharged from rehab on 03/07/2025 it appears that patient had finished his Keppra for subdural, and had restarted Eliquis--holding for biopsy (3) NICOLE (acute kidney injury): Code(s): N17.9 - Acute kidney failure, unspecified Status: Acute Assessment and Plan: * Creatinine 2.47, down to 1.79>1.35 with fluids * NS@125/hr>75/hr * Follow BMP * 03/23: Cr 1.26 (4) ETOH abuse: Code(s): F10.10 - Alcohol abuse, uncomplicated Status: Acute Assessment and Plan: * [facility] protocol * Monitor for withdrawals (5) Primary hypertension: Code(s): I10 - Essential (primary) hypertension Status: Acute Assessment and Plan: * Hold antihypertensives while doing fall workup (6) Chronic diastolic CHF (congestive heart failure): Code(s): I50.32 - Chronic diastolic (congestive) heart failure Status: Acute Assessment and Plan: * Patient does not appear to be on diuretics (7) Coronary artery disease: Qualifiers: Associated angina: without angina Coronary Disease-Associated Artery/Lesion type: [place] artery [place] vs. transplanted heart: [place] heart Qualified Code(s): I25.10 - Atherosclerotic heart disease of [place] coronary artery without angina pectoris Code(s): I25.10 - Atherosclerotic heart disease of [place] coronary artery without angina pectoris Status: Acute Assessment and Plan: * Continued Entresto and Jardiance metoprolol, statin * Holding Eliquis (8) Atrial fibrillation: Code(s): I48.91 - Unspecified atrial fibrillation Status: Acute Assessment and Plan: * Continue metoprolol * Hold eliquis for possible CT guided bone biopsy (9) Type 2 diabetes mellitus with diabetic neuropathy: Qualifiers: Diabetes mellitus senior care insulin use: without senior care use Qualified Code(s): E11.40 - Type 2 diabetes mellitus with diabetic neuropathy, unspecified Code(s): E11.40 - Type 2 diabetes mellitus with diabetic neuropathy, unspecified Status: Acute Assessment and Plan: * Continue Jardiance * Amaryl and sitagliptin on hold * SSI prn Plan * Recently completed keppra after subdural hematoma Subjective Date/time seen: 03/23/25 10:10 Interval history: 79 Year old male bed past medical history of AFib, diabetes type 2, CAD, hypertension, CHF, and CKD stage 3 who presents the hospital after a fall and was unable to get up. 03/23/2025 Patient working with PT/OT at time examination. Denies chest pain shortness a breath, abdominal pain or nausea/vomiting at this time. Still endorses some lower back pain consistent with yesterday but otherwise no new complaints or worsening pains. Spoke with nurse surgery, continue plan of obtain the lumbar spine MRI with/without contrast to rule out diskitis/osteomyelitis and a CT- guided bone biopsy. Kidney function normalized today. Still pending blood cultures. Denies saddle anesthesia or bowel/ bladder incontinence but having some difficulty voiding. Review of Systems Review of Systems: 12 systems were reviewed and are negativ e except for as per HPI. Exam Narrative: General - Awake and alert. No acute distress Eyes - PERRLA, EOM intact ENT - No thrush, No erythema Neck - No noticeable or palpable swelling Lymph Nodes - No lymphadenopathy Cardiovascular - RRR no m/r/g, no JVD Lungs: Clear to auscultation, No wheezing, use of accessory muscles, no crackles or wheezes. Skin - Skin warm and dry, no wounds or rashes Abdomen - Normal bowel sounds, abdomen soft and nontender Extremities - No edema, cyanosis or clubbing Musculoskeletal - 5/5 strength, normal range of motion, no swollen or eryt hematous joints. Neurological ? Alert and oriented x 3, Decreased sensation LE (reports chronic but slightly more decreased), Left leg weaker than right, minimal resistance sitting in chair, knee extension 3/5 & 4/5, plantar flexion slightly improved, 4/5. Psych: Normal mood and affect Objective Data Vital Signs Vital Signs: Vital Signs - 24 hr 03/22/25 10:26 03/22/25 12:00 03/22/25 20:00 Temperature 98.6 F 97.6 F Pulse Rate 84 98 Respiratory Rate 18 18 Blood Pressure 110/74 112/94 H Pulse Oximetry 98 95 Oxygen Delivery Room Air Fraction of Inspired Oxygen 03/22/25 20:00 03/22/25 23:55 03/23/25 00:00 Temperature 97.8 F Pulse Rate 98 85 91 Respiratory Rate 18 18 Blood Pressure 111/88 Pulse Oximetry 95 93 94 Oxygen Delivery Room Air CPAP Fraction of Inspired Oxygen 21 03/23/25 02:06 03/23/25 04:00 03/23/25 08:00 Temperature 97.7 F 97.7 F Pulse Rate 89 82 Respiratory Rate 18 18 Blood Pressure 116/90 120/82 Pulse Oximetry 99 99 Oxygen Delivery CPAP Fraction of Inspired Oxygen Intake/Output Intake/Output: Intake & Output 03/20/25 03/21/25 03/22/25 03/23/25 23:59 23:59 23:59 23:59 Intake Total 4610.8 2449.2 1720 600 Output Total 1000 1275 2900 1100 Balance 3610.8 1174.2 -1180 -500 Meds/Results Medications: Active Medications Generic Name Dose Route Start Last Admin Trade Name Freq PRN Reason Stop Dose Admin Acetaminophen 650 mg 03/18/25 11:21 03/21/25 20:25 Acetaminophen 325 Mg Tablet PO 650 mg Q4H PRN Administration Mild Pain (1-3) or Fever Acetaminophen 1,000 mg 03/21/25 17:00 03/23/25 08:51 Acetaminophen 500 Mg Tablet PO 1,000 mg TID CHANDAN Administration Apixaban 5 mg 03/18/25 21:00 03/22/25 08:34 Apixaban 5 Mg Tablet PO 5 mg Q12H CHANDAN Administration Clonidine HCl 0.1 mg 03/18/25 21:00 03/23/25 08:52 Clonidine Hcl 0.1 Mg Tablet PO 0.1 mg Q12HR CHANDAN Administration Dextrose 12.5 gm 03/18/25 20:09 Dextrose 50% 25 Gm/50 Ml Syringe IV PUSH PRN PRN Hypoglycemia Protocol Docusate Sodium 100 mg 03/18/25 17:00 03/23/25 08:51 Docusate Sodium 100 Mg Capsule PO 100 mg BID CHANDAN Administration Empagliflozin 10 mg 03/19/25 09:00 03/23/25 08:52 Empagliflozin 10 Mg Tablet PO 10 mg DAILY CHANDAN Administration Finasteride 5 mg 03/19/25 09:00 03/23/25 08:51 Finasteride 5 Mg Tablet PO 5 mg DAILY CHANDAN Administration Folic Acid 1 mg 03/19/25 09:00 03/23/25 08:51 Folic Acid 1 Mg Tablet PO 1 mg DAILY CHANDAN Administration Gabapentin 300 mg 03/21/25 21:00 03/22/25 20:12 Gabapentin 300 Mg Capsule PO 300 mg QHS CHANDAN Administration Glimepiride 4 mg 03/19/25 09:00 Glimepiride 2 Mg Tablet PO DAILY CHANDAN Glucagon 1 mg 03/18/25 20:09 Glucagon For Inj 1 Mg Vial IM PRN PRN Hypoglycemia Protocol Glucose 15 gm 03/18/25 20:09 Glucose Oral Gel 15 Gm Of Glucse In 37.5 Gm Tube PO PRN PRN Hypoglycemia Protocol Sodium Chloride 1,000 mls @ 75 mls/hr 03/18/25 11:25 03/23/25 08:50 Normal Saline Iv IV CONT Not Given .[id number] [facility] Dextrose 1,000 mls @ 100 mls/hr 03/18/25 20:09 Dextrose 5% 1,000 Ml IVPB PRN PRN Hypoglycemia Protocol Insulin Aspart 2 - 5 units 03/19/25 08:00 03/23/25 08:50 Insulin Aspart (*Bkc) 100 Units/Ml SUB-Q Not Given TIDWM [facility] Protocol Insulin Aspart 1 - 2 units 03/18/25 21:00 03/22/25 20:13 Insulin Aspart (*Bkc) 100 Units/Ml SUB-Q Not Given HS [facility] Protocol Lorazepam 2 mg 03/19/25 03:00 Lorazepam (*Crx) 1 Mg Tablet PO Q4HR PRN CIWA >15 Methocarbamol 500 mg 03/21/25 11:19 03/22/25 20:12 Methocarbamol 500 Mg Tablet PO 500 mg BID PRN Administration Muscle Spasm Metoprolol Succinate 100 mg 03/19/25 09:00 03/23/25 08:51 Metoprolol Succinate Ext Rel 100 Mg Tabcr PO 100 mg DAILY [facility] Administration Morphine Sulfate 2 mg 03/18/25 11:21 Morphine Sulfate (*Crx) 2 Mg/Ml Inj IV PUSH Q2H PRN Pain Rated 7-10 Multivitamins/Calcium 1 tablet 03/19/25 09:00 03/23/25 08:52 Therapeutic Multivitamins/Minerals Tab (*Bkc) PO 1 tablet DAILY CHANDAN Administration Ondansetron HCl 4 mg 03/18/25 11:21 Ondansetron Inj 4 Mg/2 Ml Vial IV PUSH Q4H PRN Nausea Oxycodone HCl 2.5 mg 03/21/25 14:19 Oxycodone Hcl (*Crx) 2.5 Mg Tab Ir PO Q4H PRN Pain Rated 4-6 Oxycodone HCl 5 mg 03/21/25 14:19 Oxycodone Hcl (*Crx) 5 Mg Tab Ir PO Q4H PRN Pain Rated 7-10 Polyethylene Glycol 17 gm 03/19/25 09:00 03/23/25 08:52 Polyethylene Glycol 3350 17 Gm Powd.Pack PO Not Given DAILY CHANDAN Pravastatin Sodium 20 mg 03/18/25 21:00 03/22/25 20:12 Pravastatin Sodium 20 Mg Tablet PO 20 mg HS CHANDAN Administration Sacubitril/Valsartan 1 tab 03/18/25 23:00 03/23/25 08:51 Sacubitril/Valsartan 24-26 Mg Tablet PO 1 tab Q12HR CHANDAN Administration Senna/Docusate Sodium 1 tab 03/18/25 22:50 Senna/Docusate Sodium Tablet PO HS PRN Constipation Sitagliptin Phosphate 100 mg 03/19/25 09:00 Sitagliptin Phosphate 100 Mg Tablet PO DAILY CHANDAN Sodium Bicarbonate 650 mg 03/18/25 19:15 03/23/25 08:52 Sodium Bicarbonate Tab 650 Mg Tablet PO 650 mg TID CHANDAN Administration Thiamine HCl 100 mg 03/19/25 09:00 03/23/25 08:52 Thiamine Hcl 100 Mg Tablet PO 100 mg DAILY CHANDAN Administration Radiology Results: ITS Impressions Chest X-Ray 03/18/25 08:32 IMPRESSION: 1. Unchanged elevation of the right hemidiaphragm. No acute cardiopulmonary disease. Lumbar Spine X-Ray 03/18/25 09:35 Impression: 1: Severe lumbar spondylosis with levoscoliosis. Thoracic/Lumbar Spine CT 03/20/25 10:16 IMPRESSION: 1. Moderate to severe thoracic and lumbar spondylosis. No acute osseous adenopathy. Thoracic Spine MRI 03/21/25 13:50 IMPRESSION: 1. Moderate thoracic spondylosis. Lumbar Spine MRI 03/21/25 14:14 IMPRESSION: 1. Prominent increased T2 disc signal and adjacent marrow signal changes at L4 and L5 with significantly greater degree of T1 fat signal loss than expected particularly without evident sclerosis on the prior CT to account for the signal loss and with small endplate erosions and surrounding mild soft tissue edema raising a high level of concern for discitis and osteomyelitis. Dr. Del Toro discussed these findings with Dr. Ventura the neurosurgeon covering for the patient at 2:30 PM. 2. Moderate to severe lower lumbar predominant spondylosis. Labs Labs: Laboratory Results - last 24 hr 03/22/25 03/22/25 03/22/25 11:34 16:32 20:02 WBC RBC Hgb Hct MCV MCH MCHC RDW Plt Count MPV Immature Gran % (Auto) Neut % (Auto) Lymph % (Auto) [place] % (Auto) Eos % (Auto) Baso % (Auto) Lymph # (Auto) [place] # (Auto) Eos # (Auto) Baso # (Auto) Abs Immat Gran (auto) Absolute Neuts (auto) Absolute Nucleated RBC Nucleated RBC % Sodium Potassium Chloride Carbon Dioxide Anion Gap BUN Creatinine Estim Creat Clear Calc Estimated GFR Glucose POC Capillary Glucose 168 H 145 H 206 H Calcium Total Bilirubin Direct Bilirubin AST ALT Alkaline Phosphatase Total Protein Albumin 03/23/25 03/23/25 05:56 07:45 WBC 4.8 RBC 3.88 L Hgb 12.2 L Hct 38.8 L MCV 100.0 MCH 31.4 MCHC 31.4 L RDW 14.3 Plt Count 152 MPV 10.7 H Immature Gran % (Auto) 0.6 H Neut % (Auto) 69.7 Lymph % (Auto) 13.1 L [place] % (Auto) 12.7 H Eos % (Auto) 3.5 Baso % (Auto) 0.4 Lymph # (Auto) 0.63 L [place] # (Auto) 0.6 Eos # (Auto) 0.2 Baso # (Auto) 0.0 Abs Immat Gran (auto) 0.03 Absolute Neuts (auto) 3.4 Absolute Nucleated RBC 0.000 Nucleated RBC % 0.0 Sodium 132 L Potassium 4.0 Chloride 106 Carbon Dioxide 22 Anion Gap 4 BUN 28 H Creatinine 1.26 Estim Creat Clear Calc 65 Estimated GFR 55 L Glucose 118 H POC Capillary Glucose 118 H Calcium 8.2 L Total Bilirubin 1.1 Direct Bilirubin 0.0 AST 46 ALT 51 H Alkaline Phosphatase 85 Total Protein 5.5 L Albumin 2.9 L Quality VTE Prophylaxis VTE prophylaxis: mechanical ordered and pharmacologic ordered
[2025-03-23 12:00] VITALS: BP 120/90; PULSE 95; RESP 18; TEMP 36.5; O2SAT 96
--- NOTE | 2025-03-23 13:04 | P.PNNEUSUR_ITS ---
Progress Note: A&P Assessment and Plan (1) Low back pain: Code(s): M54.50 - Low back pain, unspecified Status: Acute Assessment and Plan: Low back pain with bilateral distal lower extremity weakness and difficulty ambulating. Findings concerning for diskitis/osteomyelitis at L4-L5 and moderate spinal canal stenosis at L4-L5 and L5-S1 secondary to epidural lipomatosis. - Obtain contrasted MRI L-spine when able from NICOLE standpoint - IR guided biopsy L4-L5 disc space - blood cultures to r/o infection Discussed plan w/ Dr. Grover, who is in agreement Lore Porras, [facility] Neurosurgery Subjective Date/time seen: 03/23/25 13:04 Interval history: Patient sitting up in chair. Reports increased back pain today, unsure why. Has baseline neuropathy but denies any new or worsening leg pain, numbness, or weakness. Denies saddle anesthesia or bowel/ bladder incontinence but having so me difficulty voiding. Exam Narrative: Patient sitting up in recliner. A&O x4. Cranial nerves intact. Speech is clear and fluent. 5/5 motor strength BLE with exception of bilateral plantar and dorsiflexion 4/5. Sensation to light touch decreased in the feet in a stocking distribution. No ankle clonus. Objective Data Vital Signs Vital Signs: Vital Signs - 24 hr 03/22/25 20:00 03/22/25 20:00 03/22/25 23:55 Temperature 97.6 F Pulse Rate 98 98 85 Respiratory Rate 18 18 Blood Pressure 112/94 H Pulse Oximetry 95 95 93 Oxygen Delivery Room Air CPAP Fraction of Inspired Oxygen 21 03/23/25 00:00 03/23/25 02:06 03/23/25 04:00 Temperature 97.8 F 97.7 F Pulse Rate 91 89 Respiratory Rate 18 18 Blood Pressure 111/88 116/90 Pulse Oximetry 94 99 Oxygen Delivery CPAP Fraction of Inspired Oxygen 03/23/25 08:00 03/23/25 08:00 Temperature 97.7 F Pulse Rate 82 82 Respiratory Rate 18 18 Blood Pressure 120/82 Pulse Oximetry 99 99 Oxygen Delivery CPAP Fraction of Inspired Oxygen 21 Intake/Output Intake/Output: Intake & Output 03/20/25 03/21/25 03/22/25 03/23/25 23:59 23:59 23:59 23:59 Intake Total 4610.8 2449.2 1720 780 Output Total 1000 1275 2900 1100 Balance 3610.8 1174.2 -1180 -320 Meds/Results Medications: Active Medications Generic Name Dose Route Start Last Admin Trade Name Freq PRN Reason Stop Dose Admin Acetaminophen 650 mg 03/18/25 11:21 03/21/25 20:25 Acetaminophen 325 Mg Tablet PO 650 mg Q4H PRN Administration Mild Pain (1-3) or Fever Acetaminophen 1,000 mg 03/21/25 17:00 03/23/25 11:59 Acetaminophen 500 Mg Tablet PO 1,000 mg TID CHANDAN Administration Apixaban 5 mg 03/18/25 21:00 03/22/25 08:34 Apixaban 5 Mg Tablet PO 5 mg Q12H CHANDAN Administration Clonidine HCl 0.1 mg 03/18/25 21:00 03/23/25 08:52 Clonidine Hcl 0.1 Mg Tablet PO 0.1 mg Q12HR CHANDAN Administration Dextrose 12.5 gm 03/18/25 20:09 Dextrose 50% 25 Gm/50 Ml Syringe IV PUSH PRN PRN Hypoglycemia Protocol Docusate Sodium 100 mg 03/18/25 17:00 03/23/25 08:51 Docusate Sodium 100 Mg Capsule PO 100 mg BID CHANDAN Administration Empagliflozin 10 mg 03/19/25 09:00 03/23/25 08:52 Empagliflozin 10 Mg Tablet PO 10 mg DAILY CHANDAN Administration Finasteride 5 mg 03/19/25 09:00 03/23/25 08:51 Finasteride 5 Mg Tablet PO 5 mg DAILY CHANDAN Administration Folic Acid 1 mg 03/19/25 09:00 03/23/25 08:51 Folic Acid 1 Mg Tablet PO 1 mg DAILY CHANDAN Administration Gabapentin 300 mg 03/21/25 21:00 03/22/25 20:12 Gabapentin 300 Mg Capsule PO 300 mg QHS CHANDAN Administration Glimepiride 4 mg 03/19/25 09:00 Glimepiride 2 Mg Tablet PO DAILY [facility]AN Glucagon 1 mg 03/18/25 20:09 Glucagon For Inj 1 Mg Vial IM PRN PRN Hypoglycemia Protocol Glucose 15 gm 03/18/25 20:09 Glucose Oral Gel 15 Gm Of Glucse In 37.5 Gm Tube PO PRN PRN Hypoglycemia Protocol Sodium Chloride 1,000 mls @ 75 mls/hr 03/18/25 11:25 03/23/25 08:50 Normal Saline Iv IV CONT Not Given .[id number] [facility] Dextrose 1,000 mls @ 100 mls/hr 03/18/25 20:09 Dextrose 5% 1,000 Ml IVPB PRN PRN Hypoglycemia Protocol Insulin Aspart 2 - 5 units 03/19/25 08:00 03/23/25 11:49 Insulin Aspart (*Bkc) 100 Units/Ml SUB-Q Not Given TIDWM [facility] Protocol Insulin Aspart 1 - 2 units 03/18/25 21:00 03/22/25 20:13 Insulin Aspart (*Bkc) 100 Units/Ml SUB-Q Not Given HS [facility] Protocol Lorazepam 2 mg 03/19/25 03:00 Lorazepam (*Crx) 1 Mg Tablet PO Q4HR PRN CIWA >15 Methocarbamol 500 mg 03/21/25 11:19 03/22/25 20:12 Methocarbamol 500 Mg Tablet PO 500 mg BID PRN Administration Muscle Spasm Metoprolol Succinate 100 mg 03/19/25 09:00 03/23/25 08:51 Metoprolol Succinate Ext Rel 100 Mg Tabcr PO 100 mg DAILY CHANDAN Administration Morphine Sulfate 2 mg 03/18/25 11:21 Morphine Sulfate (*Crx) 2 Mg/Ml Inj IV PUSH Q2H PRN Pain Rated 7-10 Multivitamins/Calcium 1 tablet 03/19/25 09:00 03/23/25 08:52 Therapeutic Multivitamins/Minerals Tab (*Bkc) PO 1 tablet DAILY CHANDAN Administration Ondansetron HCl 4 mg 03/18/25 11:21 Ondansetron Inj 4 Mg/2 Ml Vial IV PUSH Q4H PRN Nausea Oxycodone HCl 2.5 mg 03/21/25 14:19 Oxycodone Hcl (*Crx) 2.5 Mg Tab Ir PO Q4H PRN Pain Rated 4-6 Oxycodone HCl 5 mg 03/21/25 14:19 Oxycodone Hcl (*Crx) 5 Mg Tab Ir PO Q4H PRN Pain Rated 7-10 Polyethylene Glycol 17 gm 03/19/25 09:00 03/23/25 08:52 Polyethylene Glycol 3350 17 Gm Powd.Pack PO Not Given DAILY [facility] Pravastatin Sodium 20 mg 03/18/25 21:00 03/22/25 20:12 Pravastatin Sodium 20 Mg Tablet PO 20 mg HS CHANDAN Administration Sacubitril/Valsartan 1 tab 03/18/25 23:00 03/23/25 08:51 Sacubitril/Valsartan 24-26 Mg Tablet PO 1 tab Q12HR CHANDAN Administration Senna/Docusate Sodium 1 tab 03/18/25 22:50 Senna/Docusate Sodium Tablet PO HS PRN Constipation Sitagliptin Phosphate 100 mg 03/19/25 09:00 Sitagliptin Phosphate 100 Mg Tablet PO DAILY CHANDAN Sodium Bicarbonate 650 mg 03/18/25 19:15 03/23/25 11:59 Sodium Bicarbonate Tab 650 Mg Tablet PO 650 mg TID CHANDAN Administration Thiamine HCl 100 mg 03/19/25 09:00 03/23/25 08:52 Thiamine Hcl 100 Mg Tablet PO 100 mg DAILY CHANDAN Administration Radiology Results: ITS Impressions Chest X-Ray 03/18/25 08:32 IMPRESSION: 1. Unchanged elevation of the right hemidiaphragm. No acute cardiopulmonary disease. Lumbar Spine X-Ray 03/18/25 09:35 Impression: 1: Severe lumbar spondylosis with levoscoliosis. Thoracic/Lumbar Spine CT 03/20/25 10:16 IMPRESSION: 1. Moderate to severe thoracic and lumbar spondylosis. No acute osseous adenopathy. Thoracic Spine MRI 03/21/25 13:50 IMPRESSION: 1. Moderate thoracic spondylosis. Lumbar Spine MRI 03/21/25 14:14 IMPRESSION: 1. Prominent increased T2 disc signal and adjacent marrow signal changes at L4 and L5 with significantly greater degree of T1 fat signal loss than expected particularly without evident sclerosis on the prior CT to account for the signal loss and with small endplate erosions and surrounding mild soft tissue edema raising a high level of concern for discitis and osteomyelitis. Dr. Del Toro discussed these findings with Dr. Whitehead the neurosurgeon covering for the patient at 2:30 PM. 2. Moderate to severe lower lumbar predominant spondylosis. Labs Labs: Laboratory Results - last 24 hr 03/22/25 03/22/25 03/23/25 16:32 20:02 05:56 WBC 4.8 RBC 3.88 L Hgb 12.2 L Hct 38.8 L MCV 100.0 MCH 31.4 MCHC 31.4 L RDW 14.3 Plt Count 152 MPV 10.7 H Immature Gran % (Auto) 0.6 H Neut % (Auto) 69.7 Lymph % (Auto) 13.1 L [place] % (Auto) 12.7 H Eos % (Auto) 3.5 Baso % (Auto) 0.4 Lymph # (Auto) 0.63 L [place] # (Auto) 0.6 Eos # (Auto) 0.2 Baso # (Auto) 0.0 Abs Immat Gran (auto) 0.03 Absolute Neuts (auto) 3.4 Absolute Nucleated RBC 0.000 Nucleated RBC % 0.0 Sodium 132 L Potassium 4.0 Chloride 106 Carbon Dioxide 22 Anion Gap 4 BUN 28 H Creatinine 1.26 Estim Creat Clear Calc 65 Estimated GFR 55 L Glucose 118 H POC Capillary Glucose 145 H 206 H Calcium 8.2 L Total Bilirubin 1.1 Direct Bilirubin 0.0 AST 46 ALT 51 H Alkaline Phosphatase 85 Total Protein 5.5 L Albumin 2.9 L 03/23/25 03/23/25 07:45 11:25 WBC RBC Hgb Hct MCV MCH MCHC RDW Plt Count MPV Immature Gran % (Auto) Neut % (Auto) Lymph % (Auto) [place] % (Auto) Eos % (Auto) Baso % (Auto) Lymph # (Auto) [place] # (Auto) Eos # (Auto) Baso # (Auto) Abs Immat Gran (auto) Absolute Neuts (auto) Absolute Nucleated RBC Nucleated RBC % Sodium Potassium Chloride Carbon Dioxide Anion Gap BUN Creatinine Estim Creat Clear Calc Estimated GFR Glucose POC Capillary Glucose 118 H 154 H Calcium Total Bilirubin Direct Bilirubin AST ALT Alkaline Phosphatase Total Protein Albumin Imaging My impression: MRI thoracic and lumbar spine without contrast from 03/21/2025 was reviewed. This does not demonstrate any acute fractures. There is T2 hyperintensity within the L4-L5 disc with inflammatory changes of the adjacent inferior L4 and superior L5 endplates. There is also some inflammation of the adjacent soft tissues. These changes are concerning for diskitis/osteomyelitis. 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 There is to moderate neuroforaminal stenosis at multiple levels bilaterally throughout the lumbar spine.
--- NOTE | 2025-03-23 14:43 | P.CONINF_ITS ---
Assessment and Plan Assessment and plan (1) Low back pain: Code(s): M54.50 - Low back pain, unspecified Status: Acute (2) Chronic joint pain: Code(s): M25.50 - Pain in unspecified joint; G89.29 - Other chronic pain Status: Acute Plan #Acute low back pain with generalized bilateral lower extremity weakness. No change in bowel or bladder continence. With possible early disc changes at L4/L5. With previous history of back pain. Could represent acute exacerbation of underlying arthritis but need to rule out the possibility of infectious diskitis. Next I would consider skin organisms most likely source. Without signs of UTI. Does have some pretibial scabs and recent hospitalization. Hashtag history of EtOH. Hashtag history of neuropathy. Plan: With his neurological changes, will start antibiotics being prior to any disc biopsy. Will follow up on MRI with infusion. May need to consider disc biopsy of L4/L5 with IR mainly for diagnosis and possible cultures pending MRI evaluation. Monitor neuro exam closely. Patient was examined with the aid of telemedicine. Patient consented telemedicine. I had performed exam with audio and visual hippa protected platform while in [facility]. Patient is in [facility] in [facility]. HPI Data of Consult Date/Time: 03/23/25 14:43 Requesting Physician: Jagruti Cleveland MD Primary Care Provider: Shagufta Khan MD Consult Narrative Reason for consult: possible discitis l4-l5 Narrative: Jewel White is a 79 year old male With a history of neuropathy with a history of alcohol use per chart. The he had presented in early February after a fall with a laceration. There was a small subdural hematoma considered so patient was sent to [facility]. There he said that they did many tests on him. Decided there was no surgery needed. Went to rehab for few days and is able to go home. He is able to drive himself to his social clubs and get himself back and forth on his car. No difficulty with ambulation. He awoke Sunday morning of this week with difficulty getting out of bed. Clinton weak. Clinton some soreness in his lumbar area. Unaware of any specific falls. Came in through the ED. Initial noncontrast MRI and some concern for vertebral changes at L4-L5 with question diskitis. A infusion MRI is going to be considered for thoracic and lumbar area. There is slight changes on T2 as well. He has had a history of back problems in the past. He has never had a history of leg weakness. He has a very weak but has been able to move urine on his own. No fecal incontinence. He is able to stand with some assistance but not to the point where even ambulate at home. No previous IV sites bothering him. No dogs or cats been leading to any skin injury. He has some chronic skin changes in his pretibial areas. Some bruising his left foot. Does get pedicures to keep his nails intact with underlying neuropathy. States he has not had that done for awhile since his previous hospitalization. Currently not on antibiotics. Again no fevers chills or night sweats. White blood cell count has been normal since presentation. Neurosurgery has been following patient closely. Review of Systems 2 Review of Systems: Reviewed. No diarrhea. No headaches. No visual complaints. Underlying neuropathy. Otherwise as per HPI [facility] Past Medical History Medical History (Updated 03/19/25 @ 17:12 by Ramona Campuzano APRN) Obesity with alveolar hypoventilation Obesity, morbid, BMI 40.0-49.9 Chronic subdural hematoma Atrial fibrillation 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, bilateral Multinodular goiter Morbid obesity with BMI of 45.0-49.9, adult Coronary artery disease ANTONIO on CPAP Primary hypertension Chronic diastolic CHF (congestive heart failure) Non-ischemic cardiomyopathy Dyspnea on exertion Morbid obesity Cataracts, bilateral CKD (chronic kidney disease) stage 3, GFR 30-59 ml/min Chronic joint pain Type 2 diabetes mellitus Surgical History Surgical History S/P ablation of atrial fibrillation History of thyroidectomy (~02/2019) Hx of cataract extraction (~08/2020) History of skin surgery (~03/2019) 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 Family History Family History (Updated 03/18/25 @ 13:29 by Sonia Galeano RN) Father Rheumatoid arthritis Lung cancer Mother Arthritis Hypertension Obesity Diabetes mellitus Sibling Diabetes mellitus Other Rheumatoid arteritis Social History Social History (Updated 02/25/25 @ 15:38 by Ivet Davis RN) Social History: former smoker Smoking packs per day: 2 Smoking cigarettes per day: 40.0 Years smoked: 15 Smoking pack-years: 30.00 Smoking status: Former smoker Tobacco type: cigarettes Second hand tobacco smoke exposure: No Smoking end date: 08/13/74 Alcohol intake: current Drinks per week: 12 Substance use: never Substance use type: does not use Do You Feel Safe in your Home?: Yes Lack of Transportation: No Lack of Food: Never True Current Housing: I Have Housing Concerned About Future Housing: No Difficulty Paying Gas/Electric Bills: No Difficulty Paying for Meds: No Currently Unemployed: No Education: High School Diploma/GED Difficulty w/ Childcare or Family Care: No Living arrangements: alone Occupation/Education: retired Gender identity (if verbalized by the patient): Male Sexual Orientation (if Verbalized by the Patient): Straight or Heterosexual Spiritual care concerns: Yes Agree to blood products: Yes Meds Home Medications and Allergies Home Medications ?Medication ?Instructions ?Recorded ?Confirmed ?Type finasteride 5 mg tablet 5 mg PO DAILY 12/19/19 03/18/25 History sodium bicarbonate 650 mg tablet 650 mg PO TID 12/19/21 03/18/25 History chlorthalidone 25 mg tablet 25 mg PO DAILY 01/18/23 03/18/25 History empagliflozin 10 mg tablet 10 mg PO DAILY 01/18/23 03/18/25 History (Jardiance) metoprolol succinate 100 mg 100 mg PO DAILY 07/10/23 03/18/25 History tablet,extended release 24 hr sacubitril 24 mg-valsartan 26 mg 1 tablet PO BID 07/10/23 03/18/25 History tablet (Entresto) glimepiride 4 mg tablet 4 mg PO DAILY #90 tabs 05/07/24 03/18/25 Rx hydralazine 100 mg tablet 100 mg PO BID 07/14/24 03/18/25 History metformin 500 mg tablet,extended 1,000 mg (2 x 500 mg) PO BID #360 10/20/24 03/18/25 Rx release 24 hr tabs acetaminophen 325 mg tablet 650 mg PO Q6H 02/25/25 03/18/25 History amlodipine 5 mg tablet 5 mg PO DAILY 02/25/25 03/18/25 History clonidine HCl 0.1 mg tablet 0.1 mg PO BID 02/25/25 03/18/25 History methocarbamol 500 mg tablet 500 mg PO TID PRN muscle spasm 02/25/25 03/18/25 History miconazole nitrate 2 % topical 1 applic topical BID 02/25/25 03/18/25 History powder polyethylene glycol 3350 17 17 g PO DAILY 02/25/25 03/18/25 History gram/dose oral powder pravastatin 20 mg tablet 20 mg PO HS 02/25/25 03/18/25 History gabapentin 300 mg capsule 300 mg PO QHS #90 caps 02/27/25 03/18/25 Rx sitagliptin phosphate 100 mg 100 mg PO DAILY #90 tabs 03/11/25 03/18/25 Rx tablet (Januvia) apixaban 5 mg tablet (Eliquis) 5 mg PO Q12H 03/18/25 03/18/25 History levetiracetam 500 mg tablet 500 mg PO BID 03/18/25 03/18/25 History (Diamond) Allergies Allergy/AdvReac Type Severity Reaction Status Date / Time diclofenac Allergy Unknown Unknown Verified 03/18/25 13:46 Penicillins Allergy Unknown Unknown Verified 03/18/25 13:46 Vital Signs Vital Signs - 24 hr 03/22/25 20:00 03/22/25 20:00 03/22/25 23:55 Temperature 36.4 C Pulse Rate 98 98 85 Respiratory Rate 18 18 Blood Pressure 112/94 H Pulse Oximetry 95 95 93 Oxygen Delivery Room Air CPAP Fraction of Inspired Oxygen 21 03/23/25 00:00 03/23/25 02:06 03/23/25 04:00 Temperature 36.6 C 36.5 C Pulse Rate 91 89 Respiratory Rate 18 18 Blood Pressure 111/88 116/90 Pulse Oximetry 94 99 Oxygen Delivery CPAP Fraction of Inspired Oxygen 03/23/25 08:00 03/23/25 08:00 03/23/25 12:00 Temperature 36.5 C 36.5 C Pulse Rate 82 82 95 Respiratory Rate 18 18 18 Blood Pressure 120/82 120/90 Pulse Oximetry 99 99 96 Oxygen Delivery CPAP Fraction of Inspired Oxygen 21 Exam 2 Narrative: examined via telemedicine. Patient consented telemedicine. Alert oriented to person place and time. Able to give me a clear history. Nonlabored breathing. Strength of approximately 2-3 bilaterally with plantar strength bilateral lower extremities. Is able to move his legs off the clear recliner without assistance. He has pretibial scabs bilaterally. Some bruising on the dorsum of his left foot. Otherwise no ascending lymphangitis or cellulitis. No obvious SBE changes. Results Labs 03/23/25 05:56 03/23/25 05:56 Labs: Short CBC 03/23/25 Range/Units 05:56 WBC 4.8 (4.5-10.0) K/mm3 Hgb 12.2 L (14.0-18.0) g/dL Hct 38.8 L (42.0-52.0) % Plt Count 152 (150-375) k/mm3 [facility] 03/23/25 05:56 Sodium 132 L Potassium 4.0 Chloride 106 Carbon Dioxide 22 BUN 28 H Creatinine 1.26 Glucose 118 H Calcium 8.2 L Liver Function 03/23/25 Range/Units 05:56 Total Bilirubin 1.1 (0.2-1.3) mg/dL Direct Bilirubin 0.0 (0-0.3) mg/dL AST 46 (17-59) U/L ALT 51 H (6-50) U/L Alkaline Phosphatase 85 (38-126) U/L Albumin 2.9 L (3.5-5.1) g/dL
[2025-03-23] MEDS: cefTRIAXone 2 GM in SODIUM CHLORIDE 0.9% IV 100 ML 200 ML IVPB (15:28)
[2025-03-23 16:00] VITALS: BP 125/89; PULSE 95; RESP 18; TEMP 36.5; O2SAT 96
[2025-03-23] MEDS: VANCOMYCIN 1,250 MG/NS 250 ML 1,250 MG/250 ML BAG 166.67 MG IVPB ×2 (16:44→18:09)
[2025-03-23 20:00] VITALS: BP 140/89; PULSE 94; RESP 18; TEMP 36.8; O2SAT 97
[2025-03-23] MEDS: PRAVASTATIN SODIUM 20 MG TABLET PO (20:46)
[2025-03-23] MEDS: oxyCODONE HCL (*CRX) 5 MG TAB IR PO (20:46)
[2025-03-23] MEDS: GABAPENTIN 300 MG CAPSULE PO (20:46)
[2025-03-24] VITALS (7 sets, daily range): BP systolic 125–138; BP diastolic 76–90; PULSE 67–93; RESP 16–18; TEMP 35.8–36.7; O2SAT 97–100
[2025-03-24 06:05] LABS: Hematocrit 40.4 % (42.0-52.0); Hemoglobin 12.6 g/dL (14.0-18.0); Immature Granulocyte Percent A 0.4 % (0-0.5); Lymphocytes Absolute Auto 0.58 K/mm3 (0.9-3.2); Mean Corpuscular HGB Conc 31.2 g/dl (32-36); Mean Corpuscular Hemoglobin 31.6 pg (26-34); Mean Corpuscular Volume 101.3 fl (80-100); Nucleated Red Blood Cells Absolute Auto 0.000 K/mm3 (0.0-0.012); Nucleated Red Blood Cells Perc 0.0 % (0.0-0.2); Platelet Count Result 165 k/mm3 (150-375); Red Blood Count 3.99 M/mm3 (4.6-6.20); White Blood Count 4.6 K/mm3 (4.5-10.0)
[2025-03-24] MEDS: SODIUM CHLORIDE 0.9% IV 1,000 ML 75 ML IV CONT ×2 (06:08→21:33)
[2025-03-24 06:29] LABS: Anion Gap 5 mmol/L (4-12); Blood Urea Nitrogen 24 mg/dL (9-20); Calcium 8.6 mg/dL (8.4-10.2); Carbon Dioxide 25 mmol/L (22-30); Chloride 106 mmol/L (98-107); Estimated CRCL calculation 65 ml/min; Estimated Glomerular Filt Rate 55; Glucose 121 mg/dL (65-110); Potassium 4.0 mmol/L (3.4-5.0); Sodium 136 mmol/L (137-145)
[2025-03-24] MEDS: ACETAMINOPHEN 500 MG TABLET 1000 MG PO ×3 (08:22→16:38)
[2025-03-24] MEDS: FOLIC ACID 1 MG TABLET PO (08:22)
[2025-03-24] MEDS: THIAMINE HCL 100 MG TABLET PO (08:22)
[2025-03-24] MEDS: SACUBITRIL/VALSARTAN 24-26 MG TABLET 1 TAB PO ×2 (08:22→21:30)
[2025-03-24] MEDS: THERAPEUTIC MULTIVITAMINS/MINERALS TAB (*BKC) 1 TABLET PO (08:22)
[2025-03-24] MEDS: SODIUM BICARBONATE TAB 650 MG TABLET PO ×3 (08:22→16:39)
[2025-03-24] MEDS: FINASTERIDE 5 MG TABLET PO (08:22)
[2025-03-24] MEDS: EMPAGLIFLOZIN 10 MG TABLET PO (08:23)
[2025-03-24] MEDS: METOPROLOL SUCCINATE EXT REL 100 MG TABCR PO (08:23)
[2025-03-24] MEDS: DOCUSATE SODIUM 100 MG CAPSULE PO ×2 (08:23→16:38)
[2025-03-24] MEDS: VANCOMYCIN 1,500 MG/NS 500 ML 1,500 MG/500 ML BAG 250 MG IVPB (09:02)
[2025-03-24 09:19] LABS: Syphilis IgG/IgM Antibody Non-Reactive (Nonreactive)
[2025-03-24 09:30] LABS: HIV 1/2 Ab P24 Ag Result Negative (Negative)
--- OUTSIDE RECORDS SUMMARY | 2025-03-24 09:39 | XMS_ITS | Encounter Summary ---
Author Organization [facility] Address [address] [place] [address] Phone Care Team Providers Care Identifier Horse Name Role Phone Shagufta Khan MD Primary Care Provider [phone] Encounter Details Date Type Department Care Team [...] on file Legal Sex Male 2:28 AM ROTARY DRILLER PROSPECTING Gender Identity Male 07/28/2020 10:07 AM ROTARY DRILLER PROSPECTING Sexual Orientation Straight 07/28/2020 10 :07 AM ROTARY DRILLER PROSPECTING documented as of this encounter Plan of Treatment Not on file documented as of this encounter Procedures Procedure Name Priority Date/Time Associated Diagnosis Comments SCAN - LABS 03/06/2023 documented in this encounter Results * SCAN - LABS (03/06/2023) us Provider Scanning Final Result documented in this encounter Visit Diagnoses Not on filedocumented in this encounter Care Teams Identifier Horse Relationship Specialty Start Date End Date Shagufta Khan MD PCP - General Family Medicine 02/02/21 documented as of this encounter
--- OUTSIDE RECORDS SUMMARY | 2025-03-24 09:39 | XMS_ITS | Clinical Summary ---
Author Organization [facility] Address [address] [address] Care Team Providers Care Sourcing Internship Name Role Phone Shagufta Khan MD Primary Care Provider [phone] [facility],non-owned Affiliates and Associated Physician Practices is amultiple site organization consisting of ambulatory clinics and hospital sitesin [place], [place], [place] and [place]. This disclosure is being madepursuant to the Care Everywhere program and may not contain all information available regarding this patient. Last updated 18.[facility] Allergies Active Allergy Reactions Criticality Noted Date [...] goiter 02/27/2019 Coronary artery disease invo lving aniak coronary artery of aniak heart without angina pectoris 12/28/2017 Morbid obesity [...] Type Department Care Team Description 02/04/2025 Refill [facility] - Nephrology [address] [place] [address], [facility] [place] [address] Karthikeyan Elizabeth MD Refill Request 12/31/2024 1:30 PM CDT Office Visit [facility] - Nephrology [address] [place] [address] Karthikeyan Elizabeth MD Stage 3 chronic kidney disease, unspecified whether stage 3a or 3b CKD (HCC) (Primary Dx) 12/31/2024 Travel 12/22/2024 Orders Only [facility] - Nephrology [address] [place] [address], [facility] [place] [address] Karthikeyan Elizabeth MD from Last 3 Months [...] CDT Respiratory Rate 18 07/02/2024 1:35 PM SUPERVISOR SOAKERS Oxygen Saturation 97% 12/31/2024 1:47 PM CDT Inhaled Oxygen Concentration - - Weight 153.3 kg (338 lb) 12/31/2024 1:47 PM CDT Height 185.4 cm (6' 1) 07/02/2024 1:35 PM SUPERVISOR SOAKERS Body Mass Index 44.59 07/02/2024 1:35 PM SUPERVISOR SOAKERS Plan of Treatment Upcoming Encounters Date Type Department Care Team (Late st Contact Info) Description 06/10/2025 2:00 PM CDT Office Visit [facility] - Nephrology [address] [place] [address] [place] [phone] Karthikeyan Elizabeth MD [address] [place] [address] [place] [address] Health Maintenance Due Date Last Done Comments [...] - 12/23/2024 1:09 PM CDT Performed at: [address] [place] [address] [place] [id number] Air Conditioning Insulation Installer: Peyman Lilly PhD, Phone: [phone] us Karthikeyan Farmer MD LAB - URINE CHEM ISTRY ORDERABLES Final Result [facility] INSURANCE BILL [address] [place] [address] * (ABNORMAL) URINALYSIS REFLEX TO MICROSCOPIC NO CULTURE (12/22/2024 1:54 PM CDT) Specific Echo UA 1.018 1.005 - 1.030 [facility] INSURANCE [...] was indicated and was performed. Performed at: [facility] [id number] Air Conditioning Insulation Installer: Peyman Lilly PhD, Phone: [phone] WBC UA None seen 0 - 5 [...] - 12/23/2024 8:11 AM CDT Performed at: [facility] [address] [id number] Air Conditioning Insulation Installer: Peyman Lilly PhD, Phone: [phone] us Karthikeyan Farmer MD LAB - URINALYSIS ORDERABLES Final Result [facility] INSURANCE BILL [address] [place] [address] * (ABNORMAL) CBC WITH DIFFERENTIAL (12/22/2024 1:54 PM CDT) [facility] WBC 6.2 3.4 - 10.8 x10E3/uL [facility] [...] 7:09 AM CDT Performed at: 01 - [address] [id number] Air Conditioning Insulation Installer: Peyman Lilly PhD, Phone: [phone] Karthikeyan Farmer MD LAB - HEMATOLOGY ORDERABLES Final Result [facility] INSURANCE BILL [address] [place] [address] * (ABNORMAL) RENAL FUNCTION PANEL (12/22/2024 1:54 [...] - 12/23/2024 8:11 AM CDT Performed at: [address] [place] [id number] Air Conditioning Insulation Installer: Peyman Lilly PhD, Phone: [phone] us Karthikeyan Farmer MD LAB - CHEMISTRY ORDERABLES Final Result [facility] INSURANCE BILL [address] [place] [address] * (ABNORMAL) HEMOGLOBIN A1C (EXTERNAL RESULT ENTRY) (06/17/2021) Hemoglobin A1c (EXTERNAL RESULT) 7.3(A) 4.8 - 5.6 % [facility] INSURANCE BILL Blood BLOOD SPECIMEN / Unknown 06/17/2021 us Historical Provider LAB - CHEMISTRY ORDERABLE S Final Result [facility] INSURANCE BILL [address] [place] [address] from Last 3 Months or Most Recently Relevant to Health Maintenance Insurance AET AETNA AETNA MEDICARE ADV Advance Directives * Full Code (Latest Code Status on File) Date Activated Date Inactivated Comments 02/27/2019 3:26 PM 03/01/2019 6:53 PM * Full Code Date Activated Date Inactivated Comments 02/27/2019 6:49 AM 02/27/2019 3:26 PM Care Teams Sourcing Internship Relationship Specialty Start Date End Date Shagufta Khan MD [address] [place] [address] PCP - General Family Medicine 09/26/23
--- OUTSIDE RECORDS SUMMARY | 2025-03-24 09:39 | XMS_ITS | Encounter Summary ---
Author Organization [facility] Address [address] [facility] [place] [address] Care Team Providers Care Cutter Down Name Role Phone Elizabeth Wei MD Primary Care Provider [phone] Shagufta Khan MD Primary Care Provider [phone] Encounter Details Date Type Department Care Team (Late st Contact Info) Description 06/05/2019 Lab Requisition [facility] [address] [facility], [place] [phone] Arminda Boyd, [address] [facility] [address] [place] [address] Social History Tobacco Use Types Packs/Day Years [...] Description 06/10/2025 2:00 PM CDT Office Visit [facility] - Nephrology [address] [place] [address], [place] [phone] Karthikeyan Elizabeth MD [address] [place] [address] [place] [address] documented as of this encounter Procedures Procedure Name Priority Date/Time Associated Diagnosis Comments DERMATOPATHOLOGY Routine 06/04/2019 12:0 0 AM CDT documented in this encounter Results * DERMATOPATHOLOGY (06/04/2019 12:00 AM CDT) Case Report Dermatopathology Report Case: [id number] Authorizing Provider: Arminda Boyd DO Collected: 06/04/2019 12:00 AM Ordering Location: [facility] Lab Received: 06/05/2019 05:22 AM Pathologist: [...] The specimen consists of a shave measuring 3i9n0di. Jar 0. 2:28 PM CDT DERMATOPATHOLOGY LABORATORY [...] characteristic determined by the Dermatopathology Laboratory at [facility], directed by Dr. John Adams. These tests need not be, and therefore are not, approved by the [place] Food and Drug Administration. The tests are used for clinical purposes. Billing Codes Specimen Charges Stain Charges 56819 1 2:28 PM CDT DERMATOPATHOLOGY LABORATORY Embedded Images 2:28 PM CDT DERMATOPATHOLOGY LABORATORY Pathology/Cytolog y TISSUE SPECIMEN FROM SKIN / Unknown 06/04/2019 06/05/2019 5:22 AM CDT us Arminda Boyd DO LAB - PATHOLOGY/CYTOLOGY ORDERABLES Final Result DERMATOPATHOLOGY LABORATORY [facility] - Department of Dermatology [facility] [facility], 5th [place] [address], [facility] [phone] documented in this encounter Visit Diagnoses Not on filedocumented in this encounter Care Teams Cutter Down Relationship Specialty Start Date End Date Elizabeth Wei MD PCP - General Family Medicine 01/22/19 09/25/23 Shagufta Khan MD [address] [place] [address] PCP - General Family Medicine 09/26/23 documented as of this encounter
--- OUTSIDE RECORDS SUMMARY | 2025-03-24 09:39 | XMS_ITS | Encounter Summary ---
Author Organization [facility] Address [address] [place] [address] Care Team Providers Care Inspector Screen Printing Name Role Phone Shagufta Khan MD Primary Care Provider Encounter Details Date Type Department Care Team (Late st Contact Info) Description 11/18/2024 Orders Only [facility] Health Information Management [address] [place] [id number] Scanning, Provider Social History Tobacco Use Types [...] on file Legal Sex Male 2:28 AM QUALITY IMPROVEMENT MANAGER Gender Identity Male 07/28/2020 10:07 AM QUALITY IMPROVEMENT MANAGER Sexual Orientation Straight 07/28/2020 10 :07 AM QUALITY IMPROVEMENT MANAGER 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
--- OUTSIDE RECORDS SUMMARY | 2025-03-24 09:39 | XMS_ITS | Clinical Summary ---
Author Organization [facility] Address [address] [place] [address] Care Team Providers Care Eyedotter Name Role Phone Shagufta Khan MD Primary Care Provider [phone] Allergies Active Allergy Reactions Criticality Noted Date [...] Sex Assigned at Male 07/18/2024 10:14 PM LEARNING AND DEVELOPMENT ASSOCIATE Legal Sex Male 8:42 AM LEARNING AND DEVELOPMENT ASSOCIATE Gender Identity Male 07/18/2024 10:14 PM LEARNING AND DEVELOPMENT ASSOCIATE Sexual Orientation Straight 07/18/2024 10 :14 PM LEARNING AND DEVELOPMENT ASSOCIATE Last Filed Vital Signs Vital Sign Reading [...] 185.4 cm (6' 1) 10/03/2023 1:43 PM LEARNING AND DEVELOPMENT ASSOCIATE Body Mass Index 43.27 10/03/2023 1:43 PM LEARNING AND DEVELOPMENT ASSOCIATE Plan of Treatment Health Maintenance Due Date [...] Insurance AETNA OPEN CHOICE PPO Care Teams Eyedotter Relationship Specialty Start Date End Date Shagufta Khan MD [address] [place] [address] PCP - General Family Practice 10/02/23
--- OUTSIDE RECORDS SUMMARY | 2025-03-24 09:39 | XMS_ITS | Encounter Summary ---
Author Organization [facility] Address [address] [facility] [place] [address] Care Team Providers Care Game Attendant Name Role Phone Elizabeth Wei MD Primary Care Provider [phone] Shagufta Khan MD Primary Care Provider [phone] Encounter Details Date Type Department Care Team (Late st Contact Info) Description 02/25/2019 Lab Requisition [facility] [address] [facility], [facility] [place] [address] Leola Pereyra MD [address] [facility] [address] [place] [address] Social History Tobacco Use Types Packs/Day Years [...] Description 06/10/2025 2:00 PM CDT Office Visit [facility] - Nephrology [address] [facility], [place] [address] Karthikeyan Elizabeth MD [address] [place] [address] [address] [place] [address] documented as of this encounter Procedures Procedure Name Priority Date/Time Associated Diagnosis Comments DERMATOPATHOLOGY Routine 02/24/2019 12:0 0 AM CDT documented in this encounter Results * DERMATOPATHOLOGY (02/24/2019 12:00 AM CDT) Case Report Dermatopathology Report Case: [id number] Authorizing Provider: Leola Pereyra MD Collected: 02/24/2019 [...] specimen consists of a shave biopsy measuring 12r01l6 mm. Jar 0. 9 3:52 PM CDT [...] characteristic determined by the Dermatopathology Laboratory at [facility], directed by Dr. John Adams. These tests need not be, and therefore are not, approved by the [place] Food and Drug Administration. The tests are used for clinical purposes. Billing Codes Specimen Charges Stain Charges 10819 1 44121 44587 1 1 3:52 PM CDT DERMATOPATHOLOGY LABORATORY [...] PATHOLOGY/CYTOLOGY OR DERABLES Final Result DERMATOPATHOLOGY LABORATORY [facility] - Department of Dermatology [address] [facility] 5th [place] [address], [facility] [phone] documented in this encounter Visit Diagnoses Not on filedocumented in this encounter Care Teams Game Attendant Relationship Specialty Start Date End Date Elizabeth Wei MD PCP - General Family Medicine 01/22/19 09/25/23 Shagufta Khan MD [address] [place] [address] PCP - General Family Medicine 09/26/23 documented as of this encounter
--- OUTSIDE RECORDS SUMMARY | 2025-03-24 09:39 | XMS_ITS | Encounter Summary ---
Author Organization [facility] Health Address [address] [place] [address] Care Team Providers Care Feed House Supervisor Name Role Phone Elizabeth Wei MD Primary Care Provider [phone] Shagufta Khan MD Primary Care Provider [phone] Reason for Visit * Reason Onset Date Comments MEDICATION REFILL 11/02/2020 Encounter Details Date Type Department Care Team (Late st Contact Info) Description 11/02/2020 Refill [facility] - Nephrology [address] [place] [address], [place] [address] Karthikeyan Elizabeth MD [address] [place] [address] [place] [address] MEDICATION REFILL Social History Tobacco [...] Office Visit [facility] - Nephrology [address] [place] [address], [place] [address] Karthikeyan Elizabeth MD [address] [place] [address] [place] [address] documented as of this encounter Visit Diagnoses Not on filedocumented in this encounter Care Teams Feed House Supervisor Relationship Specialty Start Date End Date Elizabeth Wei MD PCP - General Family Medicine 01/22/19 09/25/23 Shagufta Khan MD [address] [place] [address] PCP - General Family Medicine 09/26/23 documented as of this encounter
--- OUTSIDE RECORDS SUMMARY | 2025-03-24 09:39 | XMS_ITS | Encounter Summary ---
Author Organization [facility] Address [address] [facility] [place] [address] Care Team Providers Care Auger Machine Offbearer Name Role Phone Elizabeth Wei MD Primary Care Provider [phone] Shagufta Khan MD Primary Care Provider [phone] Reason for Visit * Reason Onset Date Comments MEDICATION REFILL 04/19/2019 Encounter Details Date Type Department Care Team (Late st Contact Info) Description 04/19/2019 Refill [facility] [address] [place] [address] Rolando Long MD [address] [facility] [address] [place] [address] MEDICATION REFILL Social History Tobacco Use Types [...] Visit [facility] - Nephrology [address] [facility], [place] [address] Karthikeyan Elizabeth MD [address] [place] [address] [place] [address] documented as of this encounter Visit Diagnoses Not on filedocumented in this encounter Care Teams Auger Machine Offbearer Relationship Specialty Start Date End Date Elizabeth Wei MD PCP - General Family Medicine 01/22/19 09/25/23 Shagufta Khan MD [address] [place] [address] PCP - General Family Medicine 09/26/23 documented as of this encounter
--- OUTSIDE RECORDS SUMMARY | 2025-03-24 09:39 | XMS_ITS | Encounter Summary ---
Author Organization [facility] Health Address [address] [facility] [place] [address] Care Team Providers Care Sales And Marketing Assistant Name Role Phone Elizabeth Wei MD Primary Care Provider [phone] Shagufta Khan MD Primary Care Provider [phone] Encounter Details Date Type Department Care Team (Late st Contact Info) Description 08/28/2019 Lab Requisition [facility] [address] [facility], [place] [id number] Arminda Boyd, [address] [facility] [address] [place] [address] Social History Tobacco Use Types Packs/Day Years [...] Description 06/10/2025 2:00 PM CDT Office Visit [facility] - Nephrology [address] [place] [address], [place] [address] Karthikeyan Elizabeth MD [address] [place] [address] [place] [phone] documented as of this encounter Procedures Procedure Name Priority Date/Time Associated Diagnosis Comments DERMATOPATHOLOGY Routine 08/27/2019 12:0 0 AM INDUCTION HEATING EQUIPMENT SETTER documented in this encounter Results * DERMATOPATHOLOGY (08/27/2019 12:00 AM INDUCTION HEATING EQUIPMENT SETTER) Case Report Dermatopathology Report Case: [id number] Authorizing Provider: Arminda Boyd DO Collected: 08/27/2019 12:00 AM Ordering Location: [facility] Received: 08/28/2019 10:17 AM Pathologist: Caitie Hutchins MD Specimens: A) - Skin, right upper arm B) - Skin, left abdomen 0 1:18 PM INDUCTION HEATING EQUIPMENT SETTER DERMATOPATHOLOGY LABORATORY Final Diagnosis Specimen A. SKIN, right upper arm: SOLAR LENTIGO (L81.4) SEBORRHEIC KERATOSIS (L82.1) DERMAL FIBROSIS (L90.5) (see microscopic description) Specimen B. 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 Irreg color and border. B: Nevus R/O atypia. 0 1:18 PM [facility] DERMATOPATHOLOGY [facility]ORATORY Gross Description Specimen A: Received is one formalin filled container labeled with the patient's name and designated right upper arm. The specimen consists of a shave measuring [id number]. Jar 0. Specimen B: Received is one formalin filled container labeled with the patient's name and designated left abdomen. The specimen consists of a shave measuring [id number]. Jar 0. 0 1:18 PM [facility] DERMATOPATHOLOGY LABORATORY Microscopic Description Specimen A. SKIN, [...] or Compound Dysplastic Nevus) 0 1:18 PM [facility] DERMATOPATHOLOGY [facility]ORATORY Disclaimer An external and internal positive and negative controls are appropriate for the histochemical, immunohistochemical and immunofluorescence stain(s) in this case (if any), except where stated explicitly. The performance characteristics of the stain(s) cited in this report were developed and its performance characteristic determined by the Dermatopathology Laboratory at [facility], directed by Dr. John Adams. These tests need not be, and therefore are not, approved by the [place] Food and Drug Administration. The tests are used for clinical purposes. Billing Codes Specimen Charges Stain Charges 39842 25799 1 1 73922 1 0 1:18 PM INDUCTION HEATING EQUIPMENT SETTER DERMATOPATHOLOGY LABORATORY Embedded Images 0 1:18 PM INDUCTION HEATING EQUIPMENT SETTER DERMATOPATHOLOGY LABORATORY Pathology/Cytology TISSUE SPECIMEN FROM SKIN / Unknown 08/27/2019 08/28/2019 10:17 AM INDUCTION HEATING EQUIPMENT SETTER Miscellaneous samples (specimen) TISSUE SPECIMEN FROM SKIN / Unknown 08/27/2019 08/28/2019 10:17 AM INDUCTION HEATING EQUIPMENT SETTER us Arminda Boyd DO LAB - PATHOLOGY/CYTOLOGY ORDERABLES Final Result DERMATOPATHOLOGY LABORATORY [facility] - Department of Dermatology [address] [place] [address], [address] Floor Lab [address] [phone] documented in this encounter Visit Diagnoses Not on filedocumented in this encounter Care Teams Sales And Marketing Assistant Relationship Specialty Start Date End Date Elizabeth Wei MD PCP - General Family Medicine 01/22/19 09/25/23 Shagufta Khan MD [address] [place] [address] PCP - General Family Medicine 09/26/23 documented as of this encounter
--- OUTSIDE RECORDS SUMMARY | 2025-03-24 09:39 | XMS_ITS | Clinical Summary ---
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 Name Role Phone Shagufta Khan MD Primary Care Provider [phone] Allergies Active Allergy Reactions Criticality Noted Date [...] flutter Assessment & Plan (10/06/2021 9:53 AM BARBER TOOL SHARPENER): With symptoms of exertional dyspnea/exercise intolerance, attempted [...] 09/18/2019 Assessment & Plan (10/06/2021 9:52 AM BARBER TOOL SHARPENER): Hx of diastolic dysfunction, mild leg swelling at baseline (also in setting of BMi 47, HTN) -Continue home telmisartan 80 mg every day, metoprol 150 mg BID, amlodipine 10 qdaily, chlorthalidone 25 qdaily and hydralazine at dc 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) 01/04/2016 Overview (11/17/2016): DM (diabetes mellitus), secondary, with neurologic complications Assessment & Plan (02/24/2025 1:32 PM CDT): - On Metformin, januvia, glimiepride at home - A1C 5.8 - SSI, accu-checks while inpatient - CC diet - Follow Up PCP Assessment & Plan (10/06/2021 9:50 AM BARBER TOOL SHARPENER): -Continue home januvia 100 qS, metformin 1G BID, glimepiride at discharge ANTONIO on CPAP 07/06/2015 Overview (11/17/2016): ANTONIO on CPAP Assessment & Plan (02/23/2025 9:32 AM CDT): - CPAP ordered Assessment & Plan (10/06/2021 9:51 AM BARBER TOOL SHARPENER): -Use CPAP while sleeping Hypertensive heart disease [...] Department Care Team Description 02/26/2025 Telephone [facility] Neurosurgery [address] [facility] Medical Office Building [address] [place] [address] Cony Zimmer MD 02/19/2025 6:32 PM CDT - 02/25/2025 2:15 PM CDT Hospital Encounter [facility] [address] [place] [id number] Adrian Pizarro MD Kipfer, Savannah Christine, DO Fall, initial encounter (Primary Dx); Head injury, initial encounter; Subdural hematoma (HCC); Traumatic subdural hemorrhage without open intracranial wound and without loss of consciousness, initial encounter (HCC); Closed fracture of cervical vertebra, unspecified cervical vertebral level, initial encounter (HCC); Scalp laceration, initial encounter Discharge Disposition: Discharge to an Rehab facility 02/10/2025 Telephone [facility] Cardiology [address] [place] [address] Tone Cummins MD 02/05/2025 11:30 AM CDT Office Visit [facility] Neuro Muscle [address] [facility] 6[address] [place] [address] [place] [address] Yasemin Choudhary MD PhD 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 [employer] Not on file Not on file [...] Completed 04/27/2023 Medical Devices Implanted Type Area Billing Assistant Device Identifier Shelf Expiration Date Model / Serial / Lot Vascade Mvp 6-12fr Venous Closure - [id number] Implanted:Qty: 1 on 10/05/2021 by Luis Tran MD at [facility] Collagen Right: Femoral [employer] 06/27/2023 800-612C -[id number] / / [id number] Description:vein Vascade Mvp 6-12fr Venous Closure - [id number] - [id number] Implanted:Qty: 1 on 10/05/2021 by Luis Tran MD at [facility] Collagen Left: Femoral [employer] 06/27/2023 800-612C -[id number] / [id number] / [id number] Description:vein Vascade Mvp 6-12fr Venous Closure - [id number] Implanted:Qty: 1 on 10/05/2021 by Luis Tran MD at [facility] Collagen Right: Femoral [employer] 06/27/2023 800-612C -[id number] / / [id number] Description:vein Other - See Comments Other - see comments Knee Description:Bilateral knee r eplacements Other - See Comments Other - see comments Left: Knee Other - See Comments Other - see comments Right: Knee Procedures Procedure Name Priority Date/Time Associated Diagnosis Comments POCT GLUCOSE DEVICE Routine 02/25/2025 1 1:18 AM CDT ID REMOVAL SUTURES/MO NOT REQUIRING ANESTHESIA Routine 02/25/2025 [...] DEVICE Routine 02/19/2025 9 :45 PM CDT ID CRITICAL CARE ILL/INJURED PATIENT INIT 30-74 MIN [...] LAB POCT ORDERABLES - DEVICE Final Result [facility] Department [place] [address] * ID REMOVAL SUTURES/MO NOT REQUIRING ANESTHESIA (02/25/2025 10:30 [...] details: Scalp Procedure details: Wound appearance: Clean [place] removed: Yes Mo removed: 9 Suture and/or [...] 7:28 AM CDT 02/25/2025 7:28 AM CDT [facility] DO LAB POCT ORDERABLES - DEVICE Final Result Performing Organization Address [facility]/ZIP Co de Phone Number SON[facility] [place] [address] * POCT glucose (02/24/2025 8:08 PM CDT) Glucose, POC 197 70 - 199 mg/dL Blood 02/24/2025 8:08 PM CDT 02/24/2025 8:08 PM CDT [facility] Olena Gomez DO LAB POCT ORDERABLES - DEVICE Final Result OCLETTE [facility] [place] [address] * POCT glucose (02/24/2025 5:33 PM CDT) Glucose, POC 137 70 - 199 mg/dL Blood 02/24/2025 5:33 PM CDT 02/24/2025 5:33 PM CDT Ellyn Gomez DO LAB POCT ORDERABLES - DEVICE Final Result Performing Organization Address City/State/[facility] Co de Phone Number COLETTE YAN [facility] [place] [address] * POCT glucose (02/24/2025 11:21 AM CDT) Glucose, POC 179 70 - 199 mg/dL Blood 02/24/2025 11:2 1 AM CDT 02/24/2025 11:21 AM CDT Ellyn Olena Gomez DO LAB POCT ORDERABLES - DEVICE Final Result Performing Organization Address [facility] [address]/[facility] de Phone Number COLETTE [facility] [place] [address] * XR Spine Cervical Flexion and Extension [...] signed by: Micheal Campbell M.D. Reema K[address] LIGHT LAMP CLEANER IMG XR PROCEDURES Final R esult * POCT glucose (02/24/2025 7:42 AM CDT) Glucose, POC 128 70 - 199 mg/dL Blood 02/24/2025 7:42 AM CDT 02/24/2025 7:42 AM CDT Ellyn Gomez DO LAB POCT ORDERABLES - DEVICE Final Result COLETTE YAN [facility] [place] [address] * POCT glucose (02/23/2025 8:53 PM CDT) Glucose, POC 152 70 - 199 mg/dL Blood 02/23/2025 8:53 PM CDT 02/23/2025 8:53 PM CDT [facility] POCT ORDERABLES - DEVICE Final Result Performing Organization Address [facility] [address]/[facility] Co de Phone Number [facility] [place] [address] * POCT glucose (02/23/2025 6:06 PM CDT) Glucose, POC 168 70 - 199 mg/dL Comment:Glu2: Follow Protoco l Blood 02/23/2025 6:06 PM CDT 02/23/2025 6:06 PM CDT [facility] POCT ORDERABLES - DEVICE Final Result Performing Organization Address [facility] [address]/[facility] Co de Phone Number [facility] [place] [address] * POCT glucose (02/23/2025 12:34 PM CDT) Glucose, POC 123 70 - 199 mg/dL Comment:Glu2: RN/ Notified Glucose comment 1 Glu2: RN/MD Notified [facility] Blood 02/23/2025 12:3 4 PM CDT 02/23/2025 12:34 PM CDT [facility] POCT ORDERABLES - DEVICE Final Result Performing Organization Address [facility] [address]/[facility] Co de Phone Number [facility] [place] [address] * POCT glucose (02/23/2025 8:32 AM CDT) Glucose, POC 125 70 - 199 mg/dL Comment:Glu2: RN/MD Notified Glucose comment 1 Glu2: RN/MD Notified [facility] Blood 02/23/2025 8:3 2 AM CDT 02/23/2025 8:32 AM CDT [facility] POCT ORDERABLES - DEVICE Final Result Performing Organization Address [facility] de Phone Number [facility] [place] [address] * POCT glucose (02/23/2025 4:24 AM CDT) Glucose, POC 114 70 - 199 mg/dL Blood 02/23/2025 4:24 AM CDT 02/23/2025 4:24 AM CDT [facility] POCT ORDERABLES - DEVICE Final Result Performing Organization Address [facility] [address]/[facility] de Phone Number [facility] [place] [address] * POCT glucose (02/22/2025 11:22 PM CDT) [facility] Glucose, POC 119 70 - 199 mg/dL Blood 02/22/2025 11:2 2 PM CDT 02/22/2025 11:22 PM CDT [facility] POCT ORDERABLES - DEVICE Final Result Performing Organization Address [facility] de Phone Number [facility] [place] [address] * (ABNORMAL) eGFR (02/22/2025 9:32 PM CDT) Pathologist [facility] eGFR 42(L) >=60 mL/min/1. 73 m2 Comment: [...] DO LAB BLOOD ORDERABLE S Final Result [facility] Department [place] [address] * (ABNORMAL) Differential, auto (02/22/2025 9:32 PM CDT) Neutrophil abs 4.00 1.50 - 6.50 K/cumm Imm gran abs 0.02 0.00 - 0.10 K/cumm [facility] Lymphocyte abs 0.50(L) 0.80 - 3.30 K/cumm [facility] Monocyte abs 0.56 0.20 - 0.80 K/cumm [facility] Eosinophil abs 0.09 0.00 - 0.50 K/cumm [facility] Basophil abs 0.02 0.00 - 0.10 K/cumm [facility] Neutrophil pct 77.1 % [facility] Comment: Interpretive Data Percent cell count reference ranges are not reported, since discordance with absolute values may lead to misinterpretation of CBC data. Current Interpretive Data was last revised on 2017. Imm gran pct 0.4 % [facility] Comment: Interpretive Data Percent cell count reference ranges are not reported, since discordance with absolute values may lead to misinterpretation of CBC data. Current Interpretive Data was last revised on 2017. Lymphocyte pct 9.6 % [facility] Comment: Interpretive Data Percent cell count reference ranges are not reported, since discordance with absolute values may lead to misinterpretation of CBC data. Current Interpretive Data was last revised on 2017. Monocyte pct 10.8 % [facility] Comment: Interpretive Data Percent cell count reference ranges are not reported, since discordance with absolute values may lead to misinterpretation of CBC data. Current Interpretive Data was last revised on 2017. Eosinophil pct 1.7 % [facility] Comment: Interpretive Data Percent cell count reference ranges are not reported, since discordance with absolute values may lead to misinterpretation of CBC data. Current Interpretive Data was last revised on 2017. Basophil pct 0.4 % [facility] Comment: Interpretive Data Percent cell count reference ranges are not reported, since discordance with absolute values may lead to misinterpretation of CBC data. Current Interpretive Data was last revised on 2017. Blood 02/22/2025 9:32 PM CDT 02/22/2025 10:43 PM CDT Ellyn Gomez DO LAB BLOOD ORDERABLE S Final Result [facility] Department [place] [address] * (ABNORMAL) CBC with auto differential (02/22/2025 9:32 PM CDT) WBC 5.19 3.80 - 9.90 K/cumm Hgb 14.2 13.0 - 17.5 g/dL [facility] Hct 43.9 38.9 - 50.3 % [facility] Plt 176 150 - 400 K/cumm [facility] MPV 10.9 9.1 - 12.3 fL [facility] RBC 4.43 4.30 - 5.80 M/cumm [facility] MCV 99.1(H) 81.3 - 96.4 fL [facility] MCH 32.1 27.1 - 33.3 pg [facility] MCHC 32.3 32.3 - 35.7 g/dL [facility] RDW CV 15.1(H) 11.1 - 14.9 % [facility] RDW SD 55.1(H) 35.7 - 48.1 fL [facility] NRBC abs 0.00 0.00 - 0.01 K/cumm [facility] Blood 02/22/2025 9:32 PM CDT 02/22/2025 10:43 PM CDT [facility] BLOOD ORDERABLE S Final Result Performing Organization Address City/[facility] [address]/ZIP Co de Phone Number [facility] [place] [address] * Phosphorus (02/22/2025 9:32 PM CDT) Phosphorus, pl 3.9 2.3 - 4.5 mg/dL Blood 02/22/2025 9:32 PM CDT 02/22/2025 11:49 PM CDT [facility] BLOOD ORDERABLE S Final Result Performing Organization Address [facility] Co de Phone Number [facility] [place] [address] * Magnesium (02/22/2025 9:32 PM CDT) Magnesium 2.1 1.4 - 2.5 mg/dL Blood 02/22/2025 9:32 PM CDT 02/22/2025 11:49 PM CDT [facility] Olena [facility] LAB BLOOD ORDERABLE S Final Result [facility] [place] [address] * (ABNORMAL) Basic metabolic panel (02/22/2025 9:32 PM CDT) Pathologist [facility] Sodium 140 135 - 145 mmol/L Potassium, pl 4.8 3.3 - 4.9 mmol/L [facility] Chloride 104 97 - 110 mmol/L [facility] CO2 26 22 - 32 mmol/L [facility] Anion gap 10 2 - 15 mmol/L [facility] BUN 31(H) 6 - 25 mg/dL [facility] Creatinine 1.66(H) 0.80 - 1.30 mg/dL [facility] Glucose 165 70 - 199 mg/dL [facility] Comment: Interpretive Data Fasting glucose >/= 126 [...] 2022. Calcium 9.1 8.5 - 10.3 mg/dL [facility] Blood 02/22/2025 9:32 PM CDT 02/22/2025 11:49 PM CDT Ellyn Gomez DO LAB BLOOD ORDERABLE S Final Result [facility] [place] [address] * (ABNORMAL) POCT glucose (02/22/2025 8:39 PM CDT) Pathologist [facility] Glucose, POC 245(H) 70 - 199 mg/dL Blood 02/22/2025 8:39 PM CDT 02/22/2025 8:39 PM CDT Ellyn Olena Kipfer DO LAB POCT ORDERABLES - DEVICE Final Result Performing Organization Address [facility] Co de Phone Number [facility] [place] [address] * POCT glucose (02/22/2025 5:34 PM CDT) Glucose, POC 141 70 - 199 mg/dL Blood 02/22/2025 5:34 PM CDT 02/22/2025 5:34 PM CDT Ellyn Gomez DO LAB POCT ORDERABLES - DEVICE Final Result Performing Organization Address [facility] [place] [address] * POCT glucose (02/22/2025 11:40 AM CDT) Glucose, POC 137 70 - 199 mg/dL Blood 02/22/2025 11:4 0 AM CDT 02/22/2025 11:40 AM CDT Ellyn Gomez DO LAB POCT ORDERABLES - DEVICE Final Result Performing Organization Address [facility] Co de Phone Number [facility] [place] [address] * POCT glucose (02/22/2025 7:53 AM CDT) Glucose, POC 113 70 - 199 mg/dL Blood 02/22/2025 7:53 AM CDT 02/22/2025 7:53 AM CDT Ellyn Gomez DO LAB POCT ORDERABLES - DEVICE Final Result Performing Organization Address City/[facility] [address]/ZIP Co de Phone Number [facility] [place] [address] * POCT glucose (02/22/2025 7:06 AM CDT) Glucose, POC 102 70 - 199 mg/dL Blood 02/22/2025 7:06 AM CDT 02/22/2025 7:06 AM CDT [facility]lena [facility] DO LAB POCT ORDERABLES - DEVICE Final Result Performing Organization Address City/[facility] [address]/[facility] Co de Phone Number [facility] [place] [address] * POCT glucose (02/22/2025 6:30 AM CDT) Glucose, POC 101 70 - 199 mg/dL Blood 02/22/2025 6:30 AM CDT 02/22/2025 6:30 AM CDT [facility] POCT ORDERABLES - DEVICE Final Result Performing Organization Address [facility] de Phone Number [facility] [place] [address] * POCT glucose (02/22/2025 4:31 AM CDT) Glucose, POC 103 70 - 199 mg/dL Blood 02/22/2025 4:31 AM CDT 02/22/2025 4:31 AM CDT [facility]a [facility] POCT ORDERABLES - DEVICE Final Result Performing Organization Address City/[facility] [place] [address] * POCT glucose (02/22/2025 12:03 AM CDT) Glucose, POC 122 70 - 199 mg/dL Blood 02/22/2025 12:0 3 AM CDT 02/22/2025 12:03 AM CDT Ellyn Olena [facility] DO LAB POCT ORDERABLES - DEVICE Final Result COLETTE [facility] [place] [address] * POCT glucose (02/21/2025 8:32 PM CDT) Glucose, POC 158 70 - 199 mg/dL Blood 02/21/2025 8:32 PM CDT 02/21/2025 8:32 PM CDT Ellyn Olena [facility] LAB POCT ORDERABLES - DEVICE Final Result Performing Organization Address [facility] [address] [facility] Co de Phone Number COLETTE [facility] [place] [address] * (ABNORMAL) eGFR (02/21/2025 7:10 PM CDT) [...] DO LAB BLOOD ORDERABLE S Final Result [facility] Department [place] [address] * (ABNORMAL) Differential, auto (02/21/2025 7:10 PM CDT) Neutrophil abs 3.69 1.50 - 6.50 K/cumm Imm gran abs 0.03 0.00 - 0.10 K/cumm [facility] Lymphocyte abs 0.64(L) 0.80 - 3.30 K/cumm [facility] Monocyte abs 0.67 0.20 - 0.80 K/cumm [facility] Eosinophil abs 0.10 0.00 - 0.50 K/cumm [facility] Basophil abs 0.01 0.00 - 0.10 K/cumm [facility] Neutrophil pct 71.8 % [facility] Comment: Interpretive Data Percent cell count reference ranges are not reported, since discordance with absolute values may lead to misinterpretation of CBC data. Current Interpretive Data was last revised on 2017. Imm gran pct 0.6 % [facility] Comment: Interpretive Data Percent cell count reference ranges are not reported, since discordance with absolute values may lead to misinterpretation of CBC data. Current Interpretive Data was last revised on 2017. Lymphocyte pct 12.5 % [facility] Comment: Interpretive Data Percent cell count reference ranges are not reported, since discordance with absolute values may lead to misinterpretation of CBC data. Current Interpretive Data was last revised on 2017. Monocyte pct 13.0 % [facility] Comment: Interpretive Data Percent cell count reference ranges are not reported, since discordance with absolute values may lead to misinterpretation of CBC data. Current Interpretive Data was last revised on 2017. Eosinophil pct 1.9 % [facility] Comment: Interpretive Data Percent cell count reference ranges are not reported, since discordance with absolute values may lead to misinterpretation of CBC data. Current Interpretive Data was last revised on 2017. Basophil pct 0.2 % [facility] Comment: Interpretive Data Percent cell count reference ranges are not reported, since discordance with absolute values may lead to misinterpretation of CBC data. Current Interpretive Data was last revised on 2017. Blood 02/21/2025 7:10 PM CDT 02/21/2025 8:40 PM CDT [facility] LAB BLOOD ORDERABLE S Final Result Performing Organization Address [facility]/State/ZIP Co de Phone Number [facility] Department [place] [address] * (ABNORMAL) CBC with auto differential (02/21/2025 7:10 PM CDT) WBC 5.14 3.80 - 9.90 K/cumm Hgb 12.9(L) 13.0 - 17.5 g/dL [facility] Hct 40.7 38.9 - 50.3 % [facility] Plt 183 150 - 400 K/cumm [facility] MPV 11.6 9.1 - 12.3 fL [facility] RBC 4.04(L) 4.30 - 5.80 M/cumm [facility] MCV 100.7(H) 81.3 - 96.4 fL [facility] MCH 31.9 27.1 - 33.3 pg [facility] MCHC 31.7(L) 32.3 - 35.7 g/dL [facility] RDW CV 15.4(H) 11.1 - 14.9 % [facility] RDW SD 57.3(H) 35.7 - 48.1 fL [facility] NRBC abs 0.00 0.00 - 0.01 K/cumm [facility] Blood 02/21/2025 7:10 PM CDT 02/21/2025 8:40 PM CDT [facility] LAB BLOOD ORDERABLE S Final Result Performing Organization Address City/[facility] [address]/ZIP Co de Phone Number [facility] [place] [address] * Phosphorus (02/21/2025 7:10 PM CDT) [facility] Phosphorus, pl 4.0 2.3 - 4.5 mg/dL Blood 02/21/2025 7:10 PM CDT 02/21/2025 8:39 PM CDT [facility] BLOOD ORDERABLE S Final Result Performing Organization Address City/[facility] [address]/[facility] Co de Phone Number [facility] [place] [address] * Magnesium (02/21/2025 7:10 PM CDT) [facility] Magnesium 1.7 1.4 - 2.5 mg/dL Blood 02/21/2025 7:10 PM CDT 02/21/2025 8:39 PM CDT [facility] BLOOD ORDERABLE S Final Result Performing Organization Address City/[facility] [address]/[facility] Co de Phone Number [facility] Department [place] [address] * (ABNORMAL) Basic metabolic panel (02/21/2025 7:10 PM CDT) [facility] Sodium 141 135 - 145 mmol/L Potassium, pl 4.5 3.3 - 4.9 mmol/L [facility] Chloride 106 97 - 110 mmol/L [facility] CO2 25 22 - 32 mmol/L [facility] Anion gap 10 2 - 15 mmol/L [facility] BUN 29(H) 6 - 25 mg/dL [facility] Creatinine 1.76(H) 0.80 - 1.30 mg/dL [facility] Glucose 159 70 - 199 mg/dL [facility] Comment: Interpretive Data Fasting glucose >/= 126 [...] 2022. Calcium 9.0 8.5 - 10.3 mg/dL [facility] Blood 02/21/2025 7:10 PM CDT 02/21/2025 8:39 PM CDT Ellyn Olena Gomez LAB BLOOD ORDERABLE S Final Result Performing Organization Address [facility] [address]/[facility] Co de Phone Number [facility] [place] [place] [address] * POCT glucose (02/21/2025 4:44 PM CDT) Glucose, POC 119 70 - 199 mg/dL Blood 02/21/2025 4:44 PM CDT 02/21/2025 4:44 PM CDT Result [facility] POCT ORDERABLES - DEVICE Final Result Performing Organization Address City/[facility] [address]/[facility] Co de Phone Number [facility] [place] [address] * POCT glucose (02/21/2025 12:11 PM CDT) Glucose, POC 162 70 - 199 mg/dL Blood 02/21/2025 12:1 1 PM CDT 02/21/2025 12:11 PM CDT [facility] LAB POCT ORDERABLES - DEVICE Final Result Performing Organization Address [facility] [address]/[facility] Co de Phone Number [facility] [place] [address] * POCT glucose (02/21/2025 8:27 AM CDT) Glucose, POC 122 70 - 199 mg/dL Blood 02/21/2025 8:27 AM CDT 02/21/2025 8:27 AM CDT [employer] LAB POCT ORDERABLES - DEVICE Final Result Performing Organization Address [facility] [address]/[facility] Co de Phone Number [facility] [place] [address] * (ABNORMAL) POCT glucose (02/20/2025 9:08 PM CDT) [facility] Glucose, POC 220(H) 70 - 199 mg/dL Blood 02/20/2025 9:08 PM CDT 02/20/2025 9:08 PM CDT Ellyn [employer] DO LAB POCT ORDERABLES - DEVICE Final Result Performing Organization Address [facility] [address]/[facility] de Phone Number CO[facility]TTE [facility] Department [place] [address] * (ABNORMAL) eGFR (02/20/2025 7:04 PM CDT) [...] DO LAB BLOOD ORDERABLE S Final Result [facility] [place] [address] * (ABNORMAL) Differential, auto (02/20/2025 7:04 PM CDT) Neutrophil abs 6.21 1.50 - 6.50 K/cumm Imm gran abs 0.06 0.00 - 0.10 K/cumm [facility] Lymphocyte abs 0.46(L) 0.80 - 3.30 K/cumm [facility] Monocyte abs 0.84(H) 0.20 - 0.80 K/cumm [facility] Eosinophil abs 0.05 0.00 - 0.50 K/cumm [facility] Basophil abs 0.02 0.00 - 0.10 K/cumm [facility] Neutrophil pct 81.2 % [facility] Comment: Interpretive Data Percent cell count reference ranges are not reported, since discordance with absolute values may lead to misinterpretation of CBC data. Current Interpretive Data was last revised on 2017. Imm gran pct 0.8 % [facility] Comment: Interpretive Data Percent cell count reference ranges are not reported, since discordance with absolute values may lead to misinterpretation of CBC data. Current Interpretive Data was last revised on 2017. Lymphocyte pct 6.0 % [facility] Comment: Interpretive Data Percent cell count reference ranges are not reported, since discordance with absolute values may lead to misinterpretation of CBC data. Current Interpretive Data was last revised on 2017. Monocyte pct 11.0 % [facility] Comment: Interpretive Data Percent cell count reference ranges are not reported, since discordance with absolute values may lead to misinterpretation of CBC data. Current Interpretive Data was last revised on 2017. Eosinophil pct 0.7 % [facility] Comment: Interpretive Data Percent cell count reference ranges are not reported, since discordance with absolute values may lead to misinterpretation of CBC data. Current Interpretive Data was last revised on 2017. Basophil pct 0.3 % [facility] Comment: Interpretive Data Percent cell count reference ranges are not reported, since discordance with absolute values may lead to misinterpretation of CBC data. Current Interpretive Data was last revised on 2017. Blood 02/20/2025 7:04 PM CDT 02/20/2025 8:30 PM CDT us Ellyn Gomez DO LAB BLOOD ORDERABLE S Final Result [facility] Department [place] [address] * (ABNORMAL) CBC with auto differential (02/20/2025 7:04 PM CDT) WBC 7.64 3.80 - 9.90 K/cumm Hgb 14.0 13.0 - 17.5 g/dL [facility] Hct 44.7 38.9 - 50.3 % [facility] Plt 189 150 - 400 K/cumm [facility] MPV 11.1 9.1 - 12.3 fL [facility] RBC 4.43 4.30 - 5.80 M/cumm [facility] MCV 100.9(H) 81.3 - 96.4 fL [facility] MCH 31.6 27.1 - 33.3 pg [facility] MCHC 31.3(L) 32.3 - 35.7 g/dL [facility] RDW CV 15.6(H) 11.1 - 14.9 % [facility] RDW SD 58.4(H) 35.7 - 48.1 fL [facility] NRBC abs 0.00 0.00 - 0.01 K/cumm [facility] Blood 02/20/2025 7:04 PM CDT 02/20/2025 8:30 PM CDT [facility] LAB BLOOD ORDERABLE S Final Result Performing Organization Address City/[facility] [address]/ZIP Co de Phone Number [facility] [place] [place] [address] * Phosphorus (02/20/2025 7:04 PM CDT) Pathologist [facility] Phosphorus, pl 3.4 2.3 - 4.5 mg/dL Blood 02/20/2025 7:04 PM CDT 02/20/2025 8:30 PM CDT [facility] BLOOD ORDERABLE S Final Result Performing Organization Address [facility] [address]/[facility] Co de Phone Number [facility] [place] [place] [address] * Magnesium (02/20/2025 7:04 PM CDT) Pathologist [facility] Magnesium 1.7 1.4 - 2.5 mg/dL Blood 02/20/2025 7:04 PM CDT 02/20/2025 8:30 PM CDT [facility] LAB BLOOD ORDERABLE S Final Result Performing Organization Address City/[facility] [address]/[facility] Co de Phone Number [facility] [place] [address] * (ABNORMAL) Hemoglobin A1c (02/20/2025 7:04 PM CDT) Hgb A1C 5.8(H) 4.0 - 5.6 % Estimated Average Glucose 120 mg/dL [facility] Comment: The ADA recommends reporting an estimated [...] NP LAB BLOOD ORDERABLES Linsey elizalde Result [facility] Department [place] [address] * (ABNORMAL) Basic metabolic panel (02/20/2025 7:04 PM CDT) Sodium 141 135 - 145 mmol/L Potassium, pl 4.4 3.3 - 4.9 mmol/L [facility] Comment:Hemolyzed; Potassium value may be falsely elevated by as much as 0.6-1.0 mmol/L. Suggest redraw and reanalysis. Chloride 105 97 - 110 mmol/L [facility] CO2 23 22 - 32 mmol/L [facility] Anion gap 13 2 - 15 mmol/L [facility] BUN 26(H) 6 - 25 mg/dL [facility] Creatinine 1.63(H) 0.80 - 1.30 mg/dL [facility] Glucose 172 70 - 199 mg/dL [facility] Comment: Interpretive Data Fasting glucose >/= 126 [...] 2022. Calcium 9.3 8.5 - 10.3 mg/dL [facility] Blood 02/20/2025 7:04 PM CDT 02/20/2025 8:30 PM CDT Ellyn Gomez DO LAB BLOOD ORDERABLE S Final Result [facility] Department [place] [address] * XR Shoulder Left 2 or More [...] signed by: Jacob Pascual M.D. [address] [employer] IMG XR PROCEDURES Final R esult * POCT glucose (02/20/2025 12:12 PM CDT) Glucose, POC 192 70 - 199 mg/dL Blood 02/20/2025 12:1 2 PM CDT 02/20/2025 12:12 PM CDT [facility] LAB POCT ORDERABLES - DEVICE Final Result Performing Organization Address [facility] [address]/ZIP Co de Phone Number [facility] [place] [address] * POCT glucose (02/20/2025 7:50 AM CDT) [facility] Glucose, POC 102 70 - 199 mg/dL Blood 02/20/2025 7:50 AM CDT 02/20/2025 7:50 AM CDT [facility] LAB POCT ORDERABLES - DEVICE Final Result Performing Organization Address [facility] [address]/[facility] de Phone Number [facility] Department [place] [address] * Drugs of Abuse Screen, Urine with Reflex Confirmation (02/20/2025 4:56 AM CDT) [facility] Amphetamine, ur Not Detected CutOff 500ng/mL Comment: Interpretive Data - Amphetamines: Samples containing greater than 500 ng/mL d-methamphetamine or other cross-reacting amphetamine compounds are reported as positive. Amphetamine immunoassays are subject to significant false positive rates due to cross-reactivity of non-amphetamine drugs. Confirmatory testing required for definitive results. Current Interpretive Data was last reviewed 2023. Barbiturates, ur Not Detected CutOff 200ng/mL [facility] Comment: Interpretive Data - Barbiturates: Samples containing [...] Cocaine, ur Not Detected CutOff 150ng/mL [facility] Comment: Interpretive Data - Cocaine: Samples containing [...] 2023. Oxycodone, ur Not Detected CutOff 100ng/mL [facility] Comment: Interpretive Data - Oxycodone: Samples containing greater than 100 ng/mL oxycodone or other cross-reacting compounds are reported as positive. False positive and false negative results are possible. Confirmatory testing required for definitive results. Current Interpretive Data was last reviewed 2023. Phencyclidine, ur Not Detected CutOff 25 ng/mL [facility] Comment: Interpretive Data - Phencyclidine: Samples containing greater than 25 ng/mL phencyclidine or other cross-reacting compounds are reported as positive. False positive and false negative results are possible. Confirmatory testing required for definitive results. Current Interpretive Data was last reviewed 2023. Urine Creatinine 74 mg/dL [facility] Comment: Interpretive Data Urine Creatinine: < 10 mg/dL is extremely dilute = or > 10 but < 20 mg/dL is dilute = or > 20 mg/dL is normal Current Interpretive Data was last revised on 2017. Urine 02/20/2025 4:56 AM CDT 02/20/2025 5:37 AM CDT Narrative [facility] - 02/20/2025 6:25 AM CDT Drug of Abuse screening is performed by immunoassay for medical purposes only. This is not to be used for Pain Management purposes. If Detected, confirmation testing will be performed for Amphetamines, Cocaine, Fentanyl, Methadone, Opiates, Oxycodone or Phencyclidine. us Adrian Pizarro MD LAB URINE ORDERABLES Final Re sult [facility] [place] [address] * CT Head and Cervical Spine WO [...] POCT glucose (02/20/2025 12:34 AM CDT) Pathologist [facility] Glucose, POC 177 70 - 199 mg/dL Blood 02/20/2025 12:3 4 AM CDT 02/20/2025 12:34 AM CDT [facility] Olena Gomez DO LAB POCT ORDERABLES - DEVICE Final Result Performing Organization Address City/[facility] [address]/ZIP Co de Phone Number COLETTE [facility] Department [place] [address] * ECG 12 lead (02/19/2025 11:26 PM CDT) [facility] Ventricular Rate EKG/Min 95 BPM [facility] Atrial Rate [address] [facility] QRS-Interval (MSEC) [address] [facility] QT-Interval (MSEC) [address] [facility] QTc [address] [facility] R [place] -[address] [facility] T [place] [address] [facility] Diagnosis Atrial flutter with variable A-V block Left axis deviation Non-specific intra-ventricu lar conduction block Abnormal QRS-T angle, consider primary T wave abnormality Abnormal ECG When compared with ECG of 08-NOV-2021 07:27, Significant changes have occurred Confirmed by WILLIAM LAI M.D ([id number]) on 02/20/2025 9:34:[address] [facility] 02/19/2025 11:2 6 PM CDT 02/20/2025 9:34 AM CDT Ellyn Olena Sensipassluis DO ECG ORDERABLES Fin al Result [facility] * (ABNORMAL) eGFR (02/19/2025 11:16 [...] ORDERABLES Linsey l Result Performing Organization Address City/[facility] [address]/ZIP Co de Phone Number [facility] Department [place] [address] * Albumin (02/19/2025 11:16 PM CDT) Pathologist [facility] Albumin 3.5 3.5 - 5.0 g/dL Blood 02/19/2025 11:1 6 PM CDT 02/19/2025 11:27 PM CDT Gino Thompson MD LAB BLOOD ORDERABLES Linsey l Result [facility] Department [place] [address] * (ABNORMAL) Lipid panel (02/19/2025 11:16 PM [...] revised on 2018. Triglycerides 101 <=149 mg/dL [facility] Comment: Hemolyzed; result may be falsely elevated [...] revised on 2018. HDL 37(L) >=40 mg/dL [facility] Comment: Interpretive Data Ages < or = [...] on 2018. LDL, calculated 44 <=129 mg/dL [facility] Comment: Interpretive Data Ages < or = [...] revised on 2024. Non-HDL Cholesterol 63 mg/dL [facility] Comment: Interpretive Data Ages < or = [...] last revised on 2018. Chol/HDL ratio 3 [facility] Blood 02/19/2025 11:1 6 PM CDT 02/19/2025 11:27 PM CDT Ellyn Gomez DO LAB BLOOD ORDERABLE S Final Result [facility] Department [place] [address] * (ABNORMAL) Basic metabolic panel (02/19/2025 11:16 PM CDT) Sodium 141 135 - 145 mmol/L Potassium, pl See Comment 3.3 - 4.9 mmol/L [facility] Comment:Credited; Hemolyzed Specimen Chloride 108 97 - 110 mmol/L [facility] CO2 20(L) 22 - 32 mmol/L [facility] Anion gap 13 2 - 15 mmol/L [facility] BUN 30(H) 6 - 25 mg/dL [facility] Creatinine 1.71(H) 0.80 - 1.30 mg/dL [facility] Glucose 156 70 - 199 mg/dL [facility] Comment: Interpretive Data Fasting glucose >/= 126 [...] 2022. Calcium 8.3(L) 8.5 - 10.3 mg/dL [facility] Blood 02/19/2025 11:1 6 PM CDT 02/19/2025 11:27 PM CDT us Jules Moore MD LAB BLOOD ORDERABLES Linsey l Result Performing Organization Address City/[facility] [address]/ZIP Co de Phone Number [facility] Department [place] [address] * POCT glucose (02/19/2025 9:45 PM CDT) [facility] Signature Glucose, POC 88 70 - 199 mg/dL Blood 02/19/2025 9:45 PM CDT 02/19/2025 9:45 PM CDT us Ellyn Gomez DO LAB POCT ORDERABLES - DEVICE Final Result Performing Organization Address City/[facility] [address]/[facility] Co de Phone Number [facility] Department [place] [address] * ID CRITICAL CARE ILL/INJURED PATIENT INIT 30-74 MIN [...] 7:30 PM CDT) ABO Rh O Positive [facility] HCLL OTHER 02/19/2025 7:30 PM CDT 02/19/2025 7:41 PM CDT us Adrian Pizarro MD LAB BLOOD ORDERABLES Final Re sult [facility] [place] [address] [facility] * Neuro CT Outside Consult (02/19/2025 7:18 [...] images may or may not represent the [place] source data set and thus may contain [...] IMAGING STUDY STUDY INITIALLY PERFORMED: 02/19/2025 at [facility]. TYPE OF STUDY: Multiple CT images of [...] IMAGING STUDY STUDY INITIALLY PERFORMED: 02/19/2025 at [facility]. TYPE OF STUDY: Multiple CT images of [...] images may or may not represent the [place] source data set and thus may contain [...] images may or may not represent the [place] source data set and thus may contain [...] images may or may not represent the [place] source data set and thus may contain [...] Outside Reference (02/19/2025 7:15 PM CDT) Impressions [facility] - 02/19/2025 7:15 PM CDT These images are for Reference purposes only and have not been reviewed by [facility] Radiology. There will be no report generated by a [facility] Radiologist. Narrative [facility] - 02/19/2025 7:15 PM CDT EXAMINATION: Images For Reference Purposes Only us Adrian Pizarro MD IMG XR PROCEDURES Final Resul t Performing Organization Address City/[facility] [address]/ZIP Co de Phone Number [facility] * (ABNORMAL) Thromboelastometry Panel - Heparin (02/19/2025 [...] ed Result - Final Performing Organization Address City/[facility] [address]/[facility] Co de Phone Number [facility] Department [place] [address] * (ABNORMAL) Thromboelastometry Panel - Intrinsic (02/19/2025 [...] Platelet Function. J Clin Med. 2019Aug 22 9(3) 256. 2. Jennifer O, Kasandra CM, Rafa N, Satish EE, Satish HB, Aaron HC, Antoine WILL, Kristopher Willis MD, Warner SS, Damon G, Hussein SANDOVAL, Mayelin ML, Justen AV, Justen SG, Costa L, Radha CumminsZ, Giovany M, Royce P, José D, Andry MM. Viscoelastic Hemostatic Assays A Primer on Legacy and New Generation Devices. J Clin Med. 2021Sep 19 11(1) 453. 3. TEZ Operating Manual. Emily Mccrary MA. Azeb 13-15. D- [id number] [facility]ly [facility]. Blood 02/19/2025 6:43 PM CDT 02/19/2025 6:54 PM CDT us Timothy Cerna MD LAB BLOOD ORDERABLES Edit ed Result - Final [facility] [place] [address] * Thromboelastometry Panel - Fibrinogen (02/19/2025 6:43 PM CDT) FIBTEM-A5 11 5 - 16 mm FIBTEM-A10 13 6 - 17 mm [facility] FIBTEM-A20 14 6 - 18 mm [facility] FIBTEM-MCF 14 9 - 19 mm [facility] Blood 02/19/2025 6:43 PM CDT 02/19/2025 6:54 PM CDT Timothy Cerna MD LAB BLOOD ORDERABLES Edit ed Result - Final Performing Organization Address [facility] [address]/[facility] Co de Phone Number [facility] Department [place] [address] * (ABNORMAL) Thromboelastometry Panel - Extrinsic (02/19/2025 6:43 PM CDT) EXTEM-CT >172 51 - 73 sec EXTEM-A5 31(L) 33 - 52 mm [facility] EXTEM-A10 47 45 - 62 mm [facility] EXTEM-A20 58 54 - 69 mm [facility] EXTEM-MCF 62 57 - 72 mm [facility] EXTEM-LI60 99 94 - 100 % [facility] EXTEM-ML 1 0 - 6 % [facility] Blood 02/19/2025 6:43 PM CDT 02/19/2025 6:54 PM CDT Timothy Cerna MD LAB BLOOD ORDERABLES Edit ed Result - Final Performing Organization Address [facility] [address]/[facility] de Phone Number [facility] Department [place] [address] * (ABNORMAL) Differential, auto (02/19/2025 6:43 PM CDT) Neutrophil abs 5.74 1.50 - 6.50 K/cumm Imm gran abs 0.03 0.00 - 0.10 K/cumm [facility] Lymphocyte abs 0.48(L) 0.80 - 3.30 K/cumm [facility] Monocyte abs 0.83(H) 0.20 - 0.80 K/cumm [facility] Eosinophil abs 0.02 0.00 - 0.50 K/cumm [facility] Basophil abs 0.03 0.00 - 0.10 K/cumm [facility] Neutrophil pct 80.6 % [facility] Comment: Interpretive Data Percent cell count reference ranges are not reported, since discordance with absolute values may lead to misinterpretation of CBC data. Current Interpretive Data was last revised on 2017. Imm gran pct 0.4 % [facility] Comment: Interpretive Data Percent cell count reference ranges are not reported, since discordance with absolute values may lead to misinterpretation of CBC data. Current Interpretive Data was last revised on 2017. Lymphocyte pct 6.7 % [facility] Comment: Interpretive Data Percent cell count reference ranges are not reported, since discordance with absolute values may lead to misinterpretation of CBC data. Current Interpretive Data was last revised on 2017. Monocyte pct 11.6 % [facility] Comment: Interpretive Data Percent cell count reference ranges are not reported, since discordance with absolute values may lead to misinterpretation of CBC data. Current Interpretive Data was last revised on 2017. Eosinophil pct 0.3 % [facility] Comment: Interpretive Data Percent cell count reference ranges are not reported, since discordance with absolute values may lead to misinterpretation of CBC data. Current Interpretive Data was last revised on 2017. Basophil pct 0.4 % [facility] Comment: Interpretive Data Percent cell count reference ranges are not reported, since discordance with absolute values may lead to misinterpretation of CBC data. Current Interpretive Data was last revised on 2017. Blood 02/19/2025 6:43 PM CDT 02/19/2025 6:58 PM CDT us Timothy Cerna MD LAB BLOOD ORDERABLES Linsey l Result [facility] Department of Laboratories [place], [place] [id number] * (ABNORMAL) POC Blood Gas and Chemistries, Venous - (02/19/2025 6:43 PM CDT) pH, David POC 7.39 7.32 - 7.43 pCO2, dvaid POC 36(L) 40 - 50 mmHg [facility] pO2, david POC 44 mmHg [facility] Na, POC 139 135 - 145 mmol/L [facility] K POC 5.1(H) 3.3 - 4.9 mmol/L [facility] Comment: Hemolyzed;K+ value may be falsely elevated 0.3-0.6 Interpretive Data Not all point of care methods assess for hemolysis. Confirm with instrument and retest K+ if not consistent with clinical signs and symptoms. Current Interpretive Data was last revised on 2023. Cl, POC 111(H) 97 - 110 mmol/L [facility] Ionized Ca, POC 4.49(L) 4.50 - 5.10 mg/dL [facility] Glucose, POC 86 70 - 199 mg/dL [facility] Lactate POC 1.7 0.7 - 2.0 mmol/L [facility] MetHb, David POC 0.1 0.0 - 1.9 % [facility] O2 Sat, David POC (Imngo) 70 % [facility] Base excess, POC -2.6 mmol/L [facility] Hct, POC 43.0 41.4 - 51.6 % [facility] Total Hb, POC 14.2 13.8 - 17.2 g/dL [facility] Blood 02/19/2025 6:43 PM CDT 02/19/2025 6:43 PM CDT us Adrian Pizarro MD LAB POCT ORDERABLES - DEVICE Final Result [facility] Department [place] [address] * (ABNORMAL) CBC with auto differential (02/19/2025 6:43 PM CDT) Pathologist [facility] WBC 7.13 3.80 - 9.90 K/cumm Hgb 13.6 13.0 - 17.5 g/dL [facility] Hct 42.9 38.9 - 50.3 % [facility] Plt 204 150 - 400 K/cumm [facility] MPV 11.1 9.1 - 12.3 fL [facility] RBC 4.25(L) 4.30 - 5.80 M/cumm [facility] MCV 100.9(H) 81.3 - 96.4 fL [facility] MCH 32.0 27.1 - 33.3 pg [facility] MCHC 31.7(L) 32.3 - 35.7 g/dL [facility] RDW CV 15.9(H) 11.1 - 14.9 % [facility] RDW SD 58.5(H) 35.7 - 48.1 fL [facility] NRBC abs 0.00 0.00 - 0.01 K/cumm [facility] Blood 02/19/2025 6:43 PM CDT 02/19/2025 6:58 PM CDT Adrian Pizarro MD LAB BLOOD ORDERABLES Final Re sult Performing Organization Address [facility] [address]/[facility] Co de Phone Number [facility] [place] [address] * aPTT (02/19/2025 6:43 PM CDT) aPTT [...] ORDERABLES Final Re sult Performing Organization Address City/[facility] [address]/[facility] Co de Phone Number [facility] [place] [address] * (ABNORMAL) Protime-INR (02/19/2025 6:43 PM CDT) PT 14.5(H) 9.7 - 13.0 sec INR 1.33(H) 0.90 - 1.20 [facility] Comment: Interpretive data Oral anticoagulant therapeutic ranges: Venous thromboembolism prophylaxis or treatment: 2.0-3.0 CARDIOLOGY Standard range: 2.0-3.0 High-intensity range: 2.5-3.5 Refer to indication-specific guidelines for appropriate target ranges for prosthetic heart valve replacement. Current interpretive data was last revised on 2019. Blood 02/19/2025 6:43 PM CDT 02/19/2025 7:00 PM CDT Adrian Pizarro MD LAB BLOOD ORDERABLES Final Re sult Performing Organization Address [facility] [address]/[facility] Co de Phone Number [facility] Department [place] [address] * Type and screen (02/19/2025 6:43 PM CDT) ABO Rh O Positive Tasia, indirect Negative [facility] Blood 02/19/2025 6:43 PM CDT 02/19/2025 7:18 PM CDT Narrative [facility] - 02/19/2025 8:33 PM CDT Has the patient had Daratumumab or Isatuximab in the past 6 months?->Unknown Adrian Pizarro MD LAB BLOOD BANK TEST ORDERABLE S Final Result Performing Organization Address [facility] [address]/[facility] Co de Phone Number [facility] Department [place] [address] * Ethanol (02/19/2025 6:43 PM CDT) Ethanol [...] MD LAB BLOOD ORDERABLES Final Re sult [facility] Department [place] [address] * Hepatitis panel, acute Blood (04/27/2023 11:14 AM CDT) Hep A IgM Nonreactive Nonreactive Hep B core IgM Nonreactive Nonreactive [facility] Hep C Ab Nonreactive Nonreactive [facility] Comment:Antibodies to HCV no t detected. Does NOT exclude the possibility of recent exposure to HCV. Current interpretive data was last revised on 22 HepBsAg Nonreactive Nonreactive [facility] Blood 04/27/2023 11:1 4 AM CDT 04/27/2023 2:07 PM CDT us Beverley Torres MD LAB MICROBIOLOGY - GENERAL ORDER TRAY Final Result Performing Organization Address [facility] [address]/[facility] Co de Phone Number [facility] Department [place] [address] from Last 3 Months or Most Recently Relevant to Health Maintenance Insurance T MEDICARE AET MEDICARE T MEDICARE Advance Directives For more information, please contact: [phone] * Full Code (Latest Code Status on File) Date Activated Date Inactivated Comments 02/20/2025 12:18 AM 02/25/2025 6:27 PM 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
--- OUTSIDE RECORDS SUMMARY | 2025-03-24 09:39 | XMS_ITS | Encounter Summary ---
Author Organization [facility] Health Address [address] [place] [address] Care Team Providers Care Employment Programs Analyst Name Role Phone Elizabeth Wei MD Primary Care Provider [phone] Shagufta Khan MD Primary Care Provider Encounter Details Date Type Department Care Team (Late st Contact Info) Description 12/24/2019 Lab Requisition [facility] [address], [place] [id number] Arminda Boyd, [address] [place] [address] Social History Tobacco Use Types Packs/Day Years [...] Description 06/10/2025 2:00 PM CDT Office Visit [facility] - Nephrology [address] [place] [address], [place] [address] Karthikeyan Elizabeth MD [address] [place] [address] [place] [address] documented as of this encounter Procedures Procedure Name Priority Date/Time Associated Diagnosis Comments DERMATOPATHOLOGY Routine 12/23/2019 12:0 0 AM CDT documented in this encounter Results * DERMATOPATHOLOGY (12/23/2019 12:00 AM CDT) Case Report Dermatopathology Report Case: [id number] Authorizing Provider: Arminda Boyd DO Collected: 12/23/2019 12:00 AM Ordering Location: [facility] Received: 12/24/2019 11:36 AM Pathologist: [...] The specimen consists of a shave measuring [id number]. Jar 0. 0 1:14 PM CDT DERMATOPATHOLOGY [...] characteristic determined by the Dermatopathology Laboratory at [facility], directed by Dr. John Adams. These tests need not be, and therefore are not, approved by the [place] Food and Drug Administration. The tests are used for clinical purposes. Billing Codes Specimen Charges Stain Charges 85963 1 0 1:14 PM CDT DERMATOPATHOLOGY LABORATORY Embedded Images 0 1:14 PM CDT DERMATOPATHOLOGY LABORATORY Pathology/Cytolog y TISSUE SPECIMEN FROM SKIN / Unknown 12/23/2019 12/24/2019 11:36 AM CDT us Arminda Boyd DO LAB - PATHOLOGY/CYTOLOGY ORDERABLES Final Result DERMATOPATHOLOGY LABORATORY [facility] - Department of Dermatology [facility], [address] [place] [address], [facility] [phone] documented in this encounter Visit Diagnoses Not on filedocumented in this encounter Care Teams Employment Programs Analyst Relationship Specialty Start Date End Date Elizabeth Wei MD PCP - General Family Medicine 01/22/19 09/25/23 Shagufta Khan MD [address] [id number] PCP - General Family Medicine 09/26/23 documented as of this encounter
--- NOTE | 2025-03-24 09:42 | P.PNIM_ITS ---
Progress Note: A&P Assessment and Plan (1) Low back pain: Code(s): M54.50 - Low back pain, unspecified Status: Acute Assessment and Plan: * Reports that he was driving on Sunday. Woke up on Sunday and unable to lift legs easily due to pain. Has decreased sensation bilaterally chronically but feels less sensation to feet today. More difficulty voiding this morning but bladder scan still <300. Having Low back pain with intermittent spasms. * 03/18 L spine xray showed Severe lumbar spondylosis with levoscoliosis * 03/20 CT T & L spine without contrast showed moderate to severe thoracic and lumbar spondylosis. No acute osseous adenopathy. * MRI T/L spine without contrast pending * Added methocarbamol 500 BID for back spasms 03/19, may be helping but very sleepy so changed to PRN * Gabapentin 300<400mg hs, resumed 300mg for oversedation * DC'd Vicodin. Scheduled tylenol TID, oxycodone 2.5-5mg prn * Neurosurgery consulted, appreciate recommendations * Repeat MRI L spine with and without contrast now that NICOLE resolved * CT bone biopsy for diskitis/osteomyelitis. Hold apixaban, last dose AM 03/22 8:34am. Could be 03/24 or 03/25 pending results of MRI with and without contrast. Discussion with radiology * Infectious disease consulted * Will follow-up on the MRI results and IR guided biopsy tomorrow * Recommend continue IV antibiotics until we have results * Initiated ceftriaxone 2 g Q 24 hours and vancomycin q.18 hours 03/21 MRI T/L spine 1. Prominent increased T2 disc signal and adjacent marrow signal changes at L4 and L5 with significantly greater degree of T1 fat signal loss than expected particularly without evident sclerosis on the prior CT to account for the signal loss and with small endplate erosions and surrounding mild soft tissue edema raising a high level of concern for discitis and osteomyelitis. Dr. Del Toro discussed these findings with Dr. Whitehead the neurosurgeon covering for the patient at 2:30 PM. 2. Moderate to severe lower lumbar predominant spondylosis. (2) Fall: Code(s): W19.XXXA - Unspecified fall, initial encounter Status: Acute Assessment and Plan: * PT OT evaluate and treat * Up with assistance * Fall precautions * Patient had a fall with subdural and was discharged from rehab on 03/07/2025 it appears that patient had finished his Keppra for subdural, and had restarted Eliquis--holding for biopsy (3) NICOLE (acute kidney injury): Code(s): N17.9 - Acute kidney failure, unspecified Status: Acute Assessment and Plan: * Creatinine 2.47, down to 1.79>1.35 with fluids * NS@125/hr>75/hr * Follow BMP * 03/24: Cr 1.27 (4) ETOH abuse: Code(s): F10.10 - Alcohol abuse, uncomplicated Status: Acute Assessment and Plan: * [facility] protocol * Monitor for withdrawals (5) Primary hypertension: Code(s): I10 - Essential (primary) hypertension Status: Acute Assessment and Plan: * Hold antihypertensives while doing fall workup (6) Chronic diastolic CHF (congestive heart failure): Code(s): I50.32 - Chronic diastolic (congestive) heart failure Status: Acute Assessment and Plan: * Patient does not appear to be on diuretics (7) Coronary artery disease: Qualifiers: Associated angina: without angina Coronary Disease-Associated Artery/Lesion type: [place] artery [place] vs. transplanted heart: [place] heart Qualified Code(s): I25.10 - Atherosclerotic heart disease of [place] coronary artery without angina pectoris Code(s): I25.10 - Atherosclerotic heart disease of [place] coronary artery without angina pectoris Status: Acute Assessment and Plan: * Continued Entresto and Jardiance metoprolol, statin * Holding Eliquis (8) Atrial fibrillation: Code(s): I48.91 - Unspecified atrial fibrillation Status: Acute Assessment and Plan: * Continue metoprolol * Hold eliquis for possible CT guided bone biopsy (9) Type 2 diabetes mellitus with diabetic neuropathy: Qualifiers: 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 03/24/2025 Patient sitting comfortably at bedside during examination. Denies any chest pain, shortness a breath, nausea/vomiting, or numbness/tingling at this time. Pending results of lumbar MRI. Likely IR-guided biopsy tomorrow. Ninety consulted, recommend monitoring serial neurological exams, MRI results and continuing IV antibiotics at this time. Will continue to monitor MRI and plan for biopsy tomorrow. Patient otherwise has no concerns or complaints at this time. Review of Systems Review of Systems: 12 systems were reviewed and are negativ e except for as per HPI. Exam Narrative: General - Awake and alert. No acute distress Eyes - PERRLA, EOM intact ENT - No thrush, No erythema Neck - No noticeable or palpable swelling Lymph Nodes - No lymphadenopathy Cardiovascular - RRR no m/r/g, no JVD Lungs: Clear to auscultation, No wheezing, use of accessory muscles, no crackles or wheezes. Skin - Skin warm and dry, no wounds or rashes Abdomen - Normal bowel sounds, abdomen soft and nontender Extremities - No edema, cyanosis or clubbing Musculoskeletal - 5/5 strength, normal range of motion, no swollen or erythematous joints. Neurological ? Alert and oriented x 3, Decreased sensation LE (reports chronic but slightly more decreased), Left leg weaker than right, minimal resistance sitting in chair, knee extension 3/5 & 4/5, plantar flexion slightly improved, 4/5. Psych: Normal mood and affect Objective Data Vital Signs Vital Signs: Vital Signs - 24 hr 03/23/25 12:00 03/23/25 16:00 03/23/25 20:00 Temperature 97.7 F 97.7 F 98.2 F Pulse Rate 95 95 94 Respiratory Rate 18 18 18 Blood Pressure 120/90 125/89 140/89 Pulse Oximetry 96 96 97 Oxygen Delivery 03/23/25 20:00 03/23/25 23:41 03/24/25 00:00 Temperature 98 F Pulse Rate 89 Respiratory Rate 18 Blood Pressure 134/79 Pulse Oximetry 99 Oxygen Delivery Room Air CPAP 03/24/25 02:18 03/24/25 04:00 03/24/25 07:35 Temperature 98 F 96.8 F L Pulse Rate 88 82 Respiratory Rate 18 17 Blood Pressure 138/81 127/76 Pulse Oximetry 99 100 Oxygen Delivery CPAP 03/24/25 08:23 Temperature Pulse Rate 88 Respiratory Rate Blood Pressure Pulse Oximetry Oxygen Delivery Intake/Output Intake/Output: Intake & Output 03/21/25 03/22/25 03/23/25 03/24/25 23:59 23:59 23:59 23:59 Intake Total 2449.2 1720 2200 1420 Output Total 1275 2900 1800 1100 Balance 1174.2 -1180 400 320 Meds/Results Medications: Active Medications Generic Name Dose Route Start Last Admin Trade Name Freq PRN Reason Stop Dose Admin Acetaminophen 650 mg 03/18/25 11:21 03/21/25 20:25 Acetaminophen 325 Mg Tablet PO 650 mg Q4H PRN Administration Mild Pain (1-3) or Fever Acetaminophen 1,000 mg 03/21/25 17:00 03/24/25 08:22 Acetaminophen 500 Mg Tablet PO 1,000 mg TID CHANDAN Administration Apixaban 5 mg 03/18/25 21:00 03/22/25 08:34 Apixaban 5 Mg Tablet PO 5 mg Q12H CHANDAN Administration Clonidine HCl 0.1 mg 03/18/25 21:00 03/24/25 08:22 Clonidine Hcl 0.1 Mg Tablet PO 0.1 mg Q12HR CHANDAN Administration Dextrose 12.5 gm 03/18/25 20:09 Dextrose 50% 25 Gm/50 Ml Syringe IV PUSH PRN PRN Hypoglycemia Protocol Docusate Sodium 100 mg 03/18/25 17:00 03/24/25 08:23 Docusate Sodium 100 Mg Capsule PO 100 mg BID CHANDAN Administration Empagliflozin 10 mg 03/19/25 09:00 03/24/25 08:23 Empagliflozin 10 Mg Tablet PO 10 mg DAILY CHANDAN Administration Finasteride 5 mg 03/19/25 09:00 03/24/25 08:22 Finasteride 5 Mg Tablet PO 5 mg DAILY CHANDAN Administration Folic Acid 1 mg 03/19/25 09:00 03/24/25 08:22 Folic Acid 1 Mg Tablet PO 1 mg DAILY CHANDAN Administration Gabapentin 300 mg 03/21/25 21:00 03/23/25 20:46 Gabapentin 300 Mg Capsule PO 300 mg QHS CHANDAN Administration Glimepiride 4 mg 03/19/25 09:00 Glimepiride 2 Mg Tablet PO DAILY CHANDAN Glucagon 1 mg 03/18/25 20:09 Glucagon For Inj 1 Mg Vial IM PRN PRN Hypoglycemia Protocol Glucose 15 gm 03/18/25 20:09 Glucose Oral Gel 15 Gm Of Glucse In 37.5 Gm Tube PO PRN PRN Hypoglycemia Protocol Sodium Chloride 1,000 mls @ 75 mls/hr 03/18/25 11:25 03/24/25 06:08 Normal Saline Iv IV CONT 75 mls/hr .[id number] CHANDAN Administration Dextrose 1,000 mls @ 100 mls/hr 03/18/25 20:09 Dextrose 5% 1,000 Ml IVPB PRN PRN Hypoglycemia Protocol Ceftriaxone Sodium 2 gm/ 100 mls @ 200 mls/hr 03/23/25 14:40 03/23/25 15:28 Sodium Chloride IVPB 05/04/25 14:39 200 mls/hr Q24H CHANDAN Administration Vancomycin HCl 1,500 mg in 500 mls @ 250 mls/hr 03/24/25 10:00 03/24/25 09:02 Vancomycin 1,500 Mg/Ns 500 Ml IVPB 250 mls/hr Q18H CHANDAN Administration Insulin Aspart 2 - 5 units 03/19/25 08:00 03/24/25 07:56 Insulin Aspart (*Bkc) 100 Units/Ml SUB-Q Not Given TIDWM CHANDAN Protocol Insulin Aspart 1 - 2 units 03/18/25 21:00 03/23/25 20:47 Insulin Aspart (*Bkc) 100 Units/Ml SUB-Q Not Given HS CHANDAN Protocol Lorazepam 2 mg 03/19/25 03:00 Lorazepam (*Crx) 1 Mg Tablet PO Q4HR PRN CIWA >15 Methocarbamol 500 mg 03/21/25 11:19 03/22/25 20:12 Methocarbamol 500 Mg Tablet PO 500 mg BID PRN Administration Muscle Spasm Metoprolol Succinate 100 mg 03/19/25 09:00 03/24/25 08:23 Metoprolol Succinate Ext Rel 100 Mg Tabcr PO 100 mg DAILY CHANDAN Administration Morphine Sulfate 2 mg 03/18/25 11:21 Morphine Sulfate (*Crx) 2 Mg/Ml Inj IV PUSH Q2H PRN Pain Rated 7-10 Multivitamins/Calcium 1 tablet 03/19/25 09:00 03/24/25 08:22 Therapeutic Multivitamins/Minerals Tab (*Bkc) PO 1 tablet DAILY CHANDAN Administration Ondansetron HCl 4 mg 03/18/25 11:21 Ondansetron Inj 4 Mg/2 Ml Vial IV PUSH Q4H PRN Nausea Oxycodone HCl 2.5 mg 03/21/25 14:19 Oxycodone Hcl (*Crx) 2.5 Mg Tab Ir PO Q4H PRN Pain Rated 4-6 Oxycodone HCl 5 mg 03/21/25 14:19 03/23/25 20:46 Oxycodone Hcl (*Crx) 5 Mg Tab Ir PO 5 mg Q4H PRN Administration Pain Rated 7-10 Polyethylene Glycol 17 gm 03/19/25 09:00 03/24/25 08:22 Polyethylene Glycol 3350 17 Gm Powd.Pack PO 17 gm DAILY CHANDAN Administration Pravastatin Sodium 20 mg 03/18/25 21:00 03/23/25 20:46 Pravastatin Sodium 20 Mg Tablet PO 20 mg HS CHANDAN Administration Sacubitril/Valsartan 1 tab 03/18/25 23:00 03/24/25 08:22 Sacubitril/Valsartan 24-26 Mg Tablet PO 1 tab Q12HR CHANDAN Administration Senna/Docusate Sodium 1 tab 03/18/25 22:50 Senna/Docusate Sodium Tablet PO HS PRN Constipation Sitagliptin Phosphate 100 mg 03/19/25 09:00 Sitagliptin Phosphate 100 Mg Tablet PO DAILY CHANDAN Sodium Bicarbonate 650 mg 03/18/25 19:15 03/24/25 08:22 Sodium Bicarbonate Tab 650 Mg Tablet PO 650 mg TID CHANDAN Administration Thiamine HCl 100 mg 03/19/25 09:00 03/24/25 08:22 Thiamine Hcl 100 Mg Tablet PO 100 mg DAILY CHANDAN Administration Radiology Results: ITS Impressions Chest X-Ray 03/18/25 08:32 IMPRESSION: 1. Unchanged elevation of the right hemidiaphragm. No acute cardiopulmonary disease. Lumbar Spine X-Ray 03/18/25 09:35 Impression: 1: Severe lumbar spondylosis with levoscoliosis. Thoracic/Lumbar Spine CT 03/20/25 10:16 IMPRESSION: 1. Moderate to severe thoracic and lumbar spondylosis. No acute osseous adenopathy. Thoracic Spine MRI 03/21/25 13:50 IMPRESSION: 1. Moderate thoracic spondylosis. Lumbar Spine MRI 03/24/25 08:32 IMPRESSION: 1. Constellation of findings which remain concerning for L4-L5 discitis and associated osteomyelitis at both levels. No evident epidural abscess. 2. Abnormal configuration of the nerve roots in the cauda equina which extend as single thick oblique band at the right posterior aspect of the thecal sac cons istent with arachnoiditis but without abnormal signal or enhancement of the nerve roots. 3. Lumbar spondylosis, moderate to severe at L5-S1 and mild in the more cephalad lumbar spine. See prior report for level by level analysis. Labs Labs: Laboratory Results - last 24 hr 03/23/25 03/23/25 03/23/25 11:25 16:43 20:36 WBC RBC Hgb Hct MCV MCH MCHC RDW Plt Count MPV Immature Gran % (Auto) Neut % (Auto) Lymph % (Auto) [place] % (Auto) Eos % (Auto) Baso % (Auto) Lymph # (Auto) [place] # (Auto) Eos # (Auto) Baso # (Auto) Abs Immat Gran (auto) Absolute Neuts (auto) Absolute Nucleated RBC Nucleated RBC % Sodium Potassium Chloride Carbon Dioxide Anion Gap BUN Creatinine Estim Creat Clear Calc Estimated GFR Glucose POC Capillary Glucose 154 H 181 H 163 H Calcium Syphilis IgG/IgM Ab HIV 1&2 Ab/P24 Ag 4thGn 03/24/25 03/24/25 03/24/25 05:57 07:37 08:15 WBC 4.6 RBC 3.99 L Hgb 12.6 L Hct 40.4 L MCV 101.3 H MCH 31.6 MCHC 31.2 L RDW 14.3 Plt Count 165 MPV 10.3 Immature Gran % (Auto) 0.4 Neut % (Auto) 68.9 Lymph % (Auto) 12.6 L [place] % (Auto) 12.6 H Eos % (Auto) 4.6 H Baso % (Auto) 0.9 Lymph # (Auto) 0.58 L [place] # (Auto) 0.6 Eos # (Auto) 0.2 Baso # (Auto) 0.0 Abs Immat Gran (auto) 0.02 Absolute Neuts (auto) 3.2 Absolute Nucleated RBC 0.000 Nucleated RBC % 0.0 Sodium 136 L Potassium 4.0 Chloride 106 Carbon Dioxide 25 Anion Gap 5 BUN 24 H Creatinine 1.27 Estim Creat Clear Calc 65 Estimated GFR 55 L Glucose 121 H POC Capillary Glucose 132 H Calcium 8.6 Syphilis IgG/IgM Ab Non-reactive HIV 1&2 Ab/P24 Ag 4thGn Negative Quality VTE Prophylaxis VTE prophylaxis: mechanical ordered and pharmacologic ordered
[2025-03-24] MEDS: oxyCODONE HCL (*CRX) 5 MG TAB IR PO (11:19)
--- OUTSIDE RECORDS SUMMARY | 2025-03-24 13:48 | XMS_ITS | Clinical Summary ---
Author Organization [facility] [address] Address [address] [place] [address] Care Team Providers Care Abattoir Supervisor Name Role Phone Shagufta Khan MD Primary Care Provider [phone] Allergies Active Allergy Reactions Criticality Noted Date [...] flutter Assessment & Plan (10/06/2021 9:53 AM SLAB TRIPPER): With symptoms of exertional dyspnea/exercise intolerance, attempted [...] 09/18/2019 Assessment & Plan (10/06/2021 9:52 AM SLAB TRIPPER): Hx of diastolic dysfunction, mild leg swelling at baseline (also in setting of BMi 47, HTN) -Continue home telmisartan 80 mg every day, metoprol 150 mg BID, amlodipine 10 qdaily, chlorthalidone 25 qdaily and hydralazine at dc 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 12/28/2017 Assessment & Plan (02/20/2025 4:48 PM CDT): - Home statin continued Assessment & Plan (10/06/2021 9:51 AM SLAB TRIPPER): -Continue home metoprolol/statin/telmisartan Morbid obesity with BMI of 45.0-49.9, adult 06/14 Disease of thyroid gland 01/02/2017 Overview (01/05/2017): Enlarged thyroid Diffuse goiter 01/02/2017 Overview (01/05/2017): Goiter diffuse Body mass index 40+ - severely obese 06/27/2016 Overview (11/17/2016): Morbid obesity with BMI of 45.0-49.9, adult Mixed diabetic hyperlipidemi a associated with type 2 diabetes mellitus ([facility]) 06/27/2016 Overview (11/17/2016): 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 ([facility]) 01/04/2016 Overview (11/17/2016): DM (diabetes mellitus), secondary, with neurologic complications Assessment & Plan (02/24/2025 1:32 PM CDT): - On Metformin, januvia, glimiepride at home - A1C 5.8 - SSI, accu-checks while inpatient - CC diet - Follow Up PCP Assessment & Plan (10/06/2021 9:50 AM SLAB TRIPPER): -Continue home januvia 100 qS, metformin 1G BID, glimepiride at discharge ANTONIO on CPAP 07/06/2015 Overview (11/17/2016): ANTONIO on CPAP Assessment & Plan (02/23/2025 9:32 AM CDT): - CPAP ordered Assessment & Plan (10/06/2021 9:51 AM SLAB TRIPPER): -Use CPAP while sleeping Hypertensive heart disease [...] Type Department Care Team Description 02/26/2025 Telephone [facility] Neurosurgery [address] [place] [address] Cony Zimmer MD 02/19/2025 6:32 PM CDT - 02/25/2025 2:15 PM CDT Hospital Encounter [facility] [address] [place] [id number] Adrian Pizarro MD Kipfer, Savannah Christine, DO Fall, initial encounter (Primary Dx); Head injury, initial encounter; Subdural hematoma (HCC); Traumatic subdural hemorrhage without open intracranial wound and without loss of consciousness, initial encounter (HCC); Closed fracture of cervical vertebra, unspecified cervical vertebral level, initial encounter (HCC); Scalp laceration, initial encounter Discharge Disposition: Discharge to an Rehab facility 02/10/2025 Telephone [facility] Medical Group Cardiology [address] [place] [address] Tone Cummins MD 02/05/2025 11:30 AM CDT Office Visit [facility] Neuro Muscle [address] 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 6th [place] [address] [place] [address] Artem Benavides RN 01/15/2025 Telephone [facility] Neuro Muscle [address] [facility] [address]th [place] [address] [place] [address] Evangelina Riggins [facility] Neuro TTR, FREE. 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 [employer] Not on file Not on file [...] Completed 04/27/2023 Medical Devices Implanted Type Area Distribution Engineering Technologist Device Identifier Shelf Expiration Date Model / Serial / Lot Vascade Mvp 6-12fr Venous Closure - [id number] Implanted:Qty: 1 on 10/05/2021 by Luis Tran MD at [facility] Collagen Right: Femoral [employer] 06/27/2023 800-612C -[id number] / / [id number] Description:vein Vascade Mvp 6-12fr Venous Closure - [id number] - [id number] Implanted:Qty: 1 on 10/05/2021 by Luis Tran MD at [facility] Collagen Left: Femoral [employer] 06/27/2023 800-612C -10U / [id number] / [id number] Description:vein Vascade Mvp 6-12fr Venous Closure - [id number] Implanted:Qty: 1 on 10/05/2021 by Luis Tran MD at [facility] Collagen Right: Femoral [employer] 06/27/2023 800-612C -[id number] / / [id number] Description:vein Other - See Comments Other - see comments Knee Description:Bilateral knee r eplacements Other - See Comments Other - see comments Left: Knee Other - See Comments Other - see comments Right: Knee Procedures Procedure Name Priority Date/Time Associated Diagnosis Comments POCT GLUCOSE DEVICE Routine 02/25/2025 1 1:18 AM CDT MS REMOVAL SUTURES/MO NOT REQUIRING ANESTHESIA Routine 02/25/2025 [...] DEVICE Routine 02/19/2025 9 :45 PM CDT MS CRITICAL CARE ILL/INJURED PATIENT INIT 30-74 MIN [...] LAB POCT ORDERABLES - DEVICE Final Result [facility] Department [place] [address] * MS REMOVAL SUTURES/MO NOT REQUIRING ANESTHESIA (02/25/2025 10:30 [...] details: Scalp Procedure details: Wound appearance: Clean [place] removed: Yes Mo removed: 9 Suture and/or [...] 7:28 AM CDT 02/25/2025 7:28 AM CDT [facility] DO LAB POCT ORDERABLES - DEVICE Final Result Performing Organization Address [facility]/ZIP Co de Phone Number [facility] [place] [address] * POCT glucose (02/24/2025 8:08 PM CDT) Glucose, POC 197 70 - 199 mg/dL Blood 02/24/2025 8:08 PM CDT 02/24/2025 8:08 PM CDT [facility] Olena Gomez DO LAB POCT ORDERABLES - DEVICE Final Result [facility] [place] [address] * POCT glucose (02/24/2025 5:33 PM CDT) Glucose, POC 137 70 - 199 mg/dL Blood 02/24/2025 5:33 PM CDT 02/24/2025 5:33 PM CDT Ellyn Gomez DO LAB POCT ORDERABLES - DEVICE Final Result Performing Organization Address City/State/[facility] Co de Phone Number [facility] YAN [facility] [place] [address] * POCT glucose (02/24/2025 11:21 AM CDT) Glucose, POC 179 70 - 199 mg/dL Blood 02/24/2025 11:2 1 AM CDT 02/24/2025 11:21 AM CDT Ellyn Olena Gomez DO LAB POCT ORDERABLES - DEVICE Final Result Performing Organization Address [facility] de Phone Number [facility] [place] [address] * XR Spine Cervical Flexion and Extension [...] signed by: Micheal Campbell M.D. Reema Kemp SECURITY SUPPORT ANALYST IMG XR PROCEDURES Final R esult * POCT glucose (02/24/2025 7:42 AM CDT) Glucose, POC 128 70 - 199 mg/dL Blood 02/24/2025 7:42 AM CDT 02/24/2025 7:42 AM CDT Ellyn Gomez DO LAB POCT ORDERABLES - DEVICE Final Result [facility] Department [place] [address] * POCT glucose (02/23/2025 8:53 PM CDT) Glucose, POC 152 70 - 199 mg/dL Blood 02/23/2025 8:53 PM CDT 02/23/2025 8:53 PM CDT [facility] Olena [facility] POCT ORDERABLES - DEVICE Final Result Performing Organization Address [facility] Co de Phone Number [facility] [place] [address] * POCT glucose (02/23/2025 6:06 PM CDT) Glucose, POC 168 70 - 199 mg/dL Comment:Glu2: Follow Protoco l Blood 02/23/2025 6:06 PM CDT 02/23/2025 6:06 PM CDT [facility] POCT ORDERABLES - DEVICE Final Result Performing Organization Address [facility] Co de Phone Number [facility] [place] [address] * POCT glucose (02/23/2025 12:34 PM CDT) Glucose, POC 123 70 - 199 mg/dL Comment:Glu2: RN/ Notified Glucose comment 1 Glu2: RN/MD Notified [facility] Blood 02/23/2025 12:3 4 PM CDT 02/23/2025 12:34 PM CDT [facility] Olena [facility] POCT ORDERABLES - DEVICE Final Result Performing Organization Address [facility] Co de Phone Number [facility] [place] [address] * POCT glucose (02/23/2025 8:32 AM CDT) Glucose, POC 125 70 - 199 mg/dL Comment:Glu2: RN/MD Notified Glucose comment 1 Glu2: RN/MD Notified [facility] Blood 02/23/2025 8:3 2 AM CDT 02/23/2025 8:32 AM CDT [facility] Olena [facility] POCT ORDERABLES - DEVICE Final Result Performing Organization Address [facility] de Phone Number [facility] [place] [address] * POCT glucose (02/23/2025 4:24 AM CDT) Glucose, POC 114 70 - 199 mg/dL Blood 02/23/2025 4:24 AM CDT 02/23/2025 4:24 AM CDT [facility] POCT ORDERABLES - DEVICE Final Result Performing Organization Address [facility] de Phone Number [facility] [place] [address] * POCT glucose (02/22/2025 11:22 PM CDT) [facility] Glucose, POC 119 70 - 199 mg/dL Blood 02/22/2025 11:2 2 PM CDT 02/22/2025 11:22 PM CDT [facility] POCT ORDERABLES - DEVICE Final Result Performing Organization Address [facility] de Phone Number [facility] [place] [address] * (ABNORMAL) eGFR (02/22/2025 9:32 PM CDT) Pathologist [facility] eGFR 42(L) >=60 mL/min/1. 73 m2 Comment: [...] DO LAB BLOOD ORDERABLE S Final Result [facility] Department [place] [address] * (ABNORMAL) Differential, auto (02/22/2025 9:32 PM CDT) Neutrophil abs 4.00 1.50 - 6.50 K/cumm Imm gran abs 0.02 0.00 - 0.10 K/cumm [facility] Lymphocyte abs 0.50(L) 0.80 - 3.30 K/cumm [facility] Monocyte abs 0.56 0.20 - 0.80 K/cumm [facility] Eosinophil abs 0.09 0.00 - 0.50 K/cumm [facility] Basophil abs 0.02 0.00 - 0.10 K/cumm [facility] Neutrophil pct 77.1 % [facility] Comment: Interpretive Data Percent cell count reference ranges are not reported, since discordance with absolute values may lead to misinterpretation of CBC data. Current Interpretive Data was last revised on 2017. Imm gran pct 0.4 % [facility] Comment: Interpretive Data Percent cell count reference ranges are not reported, since discordance with absolute values may lead to misinterpretation of CBC data. Current Interpretive Data was last revised on 2017. Lymphocyte pct 9.6 % [facility] Comment: Interpretive Data Percent cell count reference ranges are not reported, since discordance with absolute values may lead to misinterpretation of CBC data. Current Interpretive Data was last revised on 2017. Monocyte pct 10.8 % [facility] Comment: Interpretive Data Percent cell count reference ranges are not reported, since discordance with absolute values may lead to misinterpretation of CBC data. Current Interpretive Data was last revised on 2017. Eosinophil pct 1.7 % [facility] Comment: Interpretive Data Percent cell count reference ranges are not reported, since discordance with absolute values may lead to misinterpretation of CBC data. Current Interpretive Data was last revised on 2017. Basophil pct 0.4 % [facility] Comment: Interpretive Data Percent cell count reference ranges are not reported, since discordance with absolute values may lead to misinterpretation of CBC data. Current Interpretive Data was last revised on 2017. Blood 02/22/2025 9:32 PM CDT 02/22/2025 10:43 PM CDT Ellyn Gomez DO LAB BLOOD ORDERABLE S Final Result [facility] Department [place] [address] * (ABNORMAL) CBC with auto differential (02/22/2025 9:32 PM CDT) WBC 5.19 3.80 - 9.90 K/cumm Hgb 14.2 13.0 - 17.5 g/dL [facility] Hct 43.9 38.9 - 50.3 % [facility] Plt 176 150 - 400 K/cumm [facility] MPV 10.9 9.1 - 12.3 fL [facility] RBC 4.43 4.30 - 5.80 M/cumm [facility] MCV 99.1(H) 81.3 - 96.4 fL [facility] MCH 32.1 27.1 - 33.3 pg [facility] MCHC 32.3 32.3 - 35.7 g/dL [facility] RDW CV 15.1(H) 11.1 - 14.9 % [facility] RDW SD 55.1(H) 35.7 - 48.1 fL [facility] NRBC abs 0.00 0.00 - 0.01 K/cumm [facility] Blood 02/22/2025 9:32 PM CDT 02/22/2025 10:43 PM CDT [facility] BLOOD ORDERABLE S Final Result Performing Organization Address City/[facility]/ZIP Co de Phone Number [facility] [place] [address] * Phosphorus (02/22/2025 9:32 PM CDT) Phosphorus, pl 3.9 2.3 - 4.5 mg/dL Blood 02/22/2025 9:32 PM CDT 02/22/2025 11:49 PM CDT [facility]a [facility] BLOOD ORDERABLE S Final Result Performing Organization Address [facility] Co de Phone Number [facility] [place] [address] * Magnesium (02/22/2025 9:32 PM CDT) Magnesium 2.1 1.4 - 2.5 mg/dL Blood 02/22/2025 9:32 PM CDT 02/22/2025 11:49 PM CDT [facility] Olena [facility]is [facility] LAB BLOOD ORDERABLE S Final Result [facility] [place] [address] * (ABNORMAL) Basic metabolic panel (02/22/2025 9:32 PM CDT) Pathologist [facility] Sodium 140 135 - 145 mmol/L Potassium, pl 4.8 3.3 - 4.9 mmol/L [facility] Chloride 104 97 - 110 mmol/L [facility] CO2 26 22 - 32 mmol/L [facility] Anion gap 10 2 - 15 mmol/L [facility] BUN 31(H) 6 - 25 mg/dL [facility] Creatinine 1.66(H) 0.80 - 1.30 mg/dL [facility] Glucose 165 70 - 199 mg/dL [facility] Comment: Interpretive Data Fasting glucose >/= [...] 2022. Calcium 9.1 8.5 - 10.3 mg/dL [facility] Blood 02/22/2025 9:32 PM CDT 02/22/2025 11:49 PM CDT Ellyn Gomez DO LAB BLOOD ORDERABLE S Final Result [facility] Department [place] [address] * (ABNORMAL) POCT glucose (02/22/2025 8:39 PM CDT) Pathologist [facility] Glucose, POC 245(H) 70 - 199 mg/dL Blood 02/22/2025 8:39 PM CDT 02/22/2025 8:39 PM CDT Ellyn Olena Kipfer DO LAB POCT ORDERABLES - DEVICE Final Result Performing Organization Address [facility] Co de Phone Number [facility] [place] [address] * POCT glucose (02/22/2025 5:34 PM CDT) Glucose, POC 141 70 - 199 mg/dL Blood 02/22/2025 5:34 PM CDT 02/22/2025 5:34 PM CDT Ellyn Gomez DO LAB POCT ORDERABLES - DEVICE Final Result Performing Organization Address [facility] [place] [address] * POCT glucose (02/22/2025 11:40 AM CDT) Glucose, POC 137 70 - 199 mg/dL Blood 02/22/2025 11:4 0 AM CDT 02/22/2025 11:40 AM CDT Ellyn Gomez DO LAB POCT ORDERABLES - DEVICE Final Result Performing Organization Address [facility] Co de Phone Number [facility] [place] [address] * POCT glucose (02/22/2025 7:53 AM CDT) Glucose, POC 113 70 - 199 mg/dL Blood 02/22/2025 7:53 AM CDT 02/22/2025 7:53 AM CDT Ellyn Gomez DO LAB POCT ORDERABLES - DEVICE Final Result Performing Organization Address City/[facility]/ZIP Co de Phone Number [facility] [place] [address] * POCT glucose (02/22/2025 7:06 AM CDT) Glucose, POC 102 70 - 199 mg/dL Blood 02/22/2025 7:06 AM CDT 02/22/2025 7:06 AM CDT [facility] Olena [facility] DO LAB POCT ORDERABLES - DEVICE Final Result Performing Organization Address City/[facility] Co de Phone Number [facility] [place] [address] * POCT glucose (02/22/2025 6:30 AM CDT) Glucose, POC 101 70 - 199 mg/dL Blood 02/22/2025 6:30 AM CDT 02/22/2025 6:30 AM CDT [facility] POCT ORDERABLES - DEVICE Final Result Performing Organization Address [facility] de Phone Number [facility] [place] [address] * POCT glucose (02/22/2025 4:31 AM CDT) Glucose, POC 103 70 - 199 mg/dL Blood 02/22/2025 4:31 AM CDT 02/22/2025 4:31 AM CDT [facility] Olena [facility] POCT ORDERABLES - DEVICE Final Result Performing Organization Address City/[facility] [place] [address] * POCT glucose (02/22/2025 12:03 AM CDT) Glucose, POC 122 70 - 199 mg/dL Blood 02/22/2025 12:0 3 AM CDT 02/22/2025 12:03 AM CDT Ellyn Olena [facility] DO LAB POCT ORDERABLES - DEVICE Final Result [facility] [place] [address] * POCT glucose (02/21/2025 8:32 PM CDT) Glucose, POC 158 70 - 199 mg/dL Blood 02/21/2025 8:32 PM CDT 02/21/2025 8:32 PM CDT Ellyn Olena [facility] POCT ORDERABLES - DEVICE Final Result Performing Organization Address [facility] Co de Phone Number CO[facility] [place] [address] * (ABNORMAL) eGFR (02/21/2025 7:10 PM CDT) [...] DO LAB BLOOD ORDERABLE S Final Result [facility] Department [place] [address] * (ABNORMAL) Differential, auto (02/21/2025 7:10 PM CDT) Neutrophil abs 3.69 1.50 - 6.50 K/cumm Imm gran abs 0.03 0.00 - 0.10 K/cumm [facility] Lymphocyte abs 0.64(L) 0.80 - 3.30 K/cumm [facility] Monocyte abs 0.67 0.20 - 0.80 K/cumm [facility] Eosinophil abs 0.10 0.00 - 0.50 K/cumm [facility] Basophil abs 0.01 0.00 - 0.10 K/cumm [facility] Neutrophil pct 71.8 % [facility] Comment: Interpretive Data Percent cell count reference ranges are not reported, since discordance with absolute values may lead to misinterpretation of CBC data. Current Interpretive Data was last revised on 2017. Imm gran pct 0.6 % [facility] Comment: Interpretive Data Percent cell count reference ranges are not reported, since discordance with absolute values may lead to misinterpretation of CBC data. Current Interpretive Data was last revised on 2017. Lymphocyte pct 12.5 % [facility] Comment: Interpretive Data Percent cell count reference ranges are not reported, since discordance with absolute values may lead to misinterpretation of CBC data. Current Interpretive Data was last revised on 2017. Monocyte pct 13.0 % [facility] Comment: Interpretive Data Percent cell count reference ranges are not reported, since discordance with absolute values may lead to misinterpretation of CBC data. Current Interpretive Data was last revised on 2017. Eosinophil pct 1.9 % [facility] Comment: Interpretive Data Percent cell count reference ranges are not reported, since discordance with absolute values may lead to misinterpretation of CBC data. Current Interpretive Data was last revised on 2017. Basophil pct 0.2 % [facility] Comment: Interpretive Data Percent cell count reference ranges are not reported, since discordance with absolute values may lead to misinterpretation of CBC data. Current Interpretive Data was last revised on 2017. Blood 02/21/2025 7:10 PM CDT 02/21/2025 8:40 PM CDT [facility] LAB BLOOD ORDERABLE S Final Result Performing Organization Address [facility]/State/ZIP Co de Phone Number [facility] Department [place] [address] * (ABNORMAL) CBC with auto differential (02/21/2025 7:10 PM CDT) WBC 5.14 3.80 - 9.90 K/cumm Hgb 12.9(L) 13.0 - 17.5 g/dL [facility] Hct 40.7 38.9 - 50.3 % [facility] Plt 183 150 - 400 K/cumm [facility] MPV 11.6 9.1 - 12.3 fL [facility] RBC 4.04(L) 4.30 - 5.80 M/cumm [facility] MCV 100.7(H) 81.3 - 96.4 fL [facility] MCH 31.9 27.1 - 33.3 pg [facility] MCHC 31.7(L) 32.3 - 35.7 g/dL [facility] RDW CV 15.4(H) 11.1 - 14.9 % [facility] RDW SD 57.3(H) 35.7 - 48.1 fL [facility] NRBC abs 0.00 0.00 - 0.01 K/cumm [facility] Blood 02/21/2025 7:10 PM CDT 02/21/2025 8:40 PM CDT [facility] [place] LAB BLOOD ORDERABLE S Final Result Performing Organization Address City/[facility]/ZIP Co de Phone Number [facility] [place] [address] * Phosphorus (02/21/2025 7:10 PM CDT) [facility] Phosphorus, pl 4.0 2.3 - 4.5 mg/dL Blood 02/21/2025 7:10 PM CDT 02/21/2025 8:39 PM CDT [facility] BLOOD ORDERABLE S Final Result Performing Organization Address City/[facility] Co de Phone Number [facility] [place] [address] * Magnesium (02/21/2025 7:10 PM CDT) [facility] Magnesium 1.7 1.4 - 2.5 mg/dL Blood 02/21/2025 7:10 PM CDT 02/21/2025 8:39 PM CDT [facility] BLOOD ORDERABLE S Final Result Performing Organization Address City/[facility] Co de Phone Number [facility] Department [place] [address] * (ABNORMAL) Basic metabolic panel (02/21/2025 7:10 PM CDT) [facility] Sodium 141 135 - 145 mmol/L Potassium, pl 4.5 3.3 - 4.9 mmol/L [facility] Chloride 106 97 - 110 mmol/L [facility] CO2 25 22 - 32 mmol/L [facility] Anion gap 10 2 - 15 mmol/L [facility] BUN 29(H) 6 - 25 mg/dL [facility] Creatinine 1.76(H) 0.80 - 1.30 mg/dL [facility] Glucose 159 70 - 199 mg/dL [facility] Comment: Interpretive Data Fasting glucose >/= [...] 2022. Calcium 9.0 8.5 - 10.3 mg/dL [facility] Blood 02/21/2025 7:10 PM CDT 02/21/2025 8:39 PM CDT Ellyn Olena Gomez LAB BLOOD ORDERABLE S Final Result Performing Organization Address [facility] Co de Phone Number [facility] Department [place] [address] * POCT glucose (02/21/2025 4:44 PM CDT) Glucose, POC 119 70 - 199 mg/dL Blood 02/21/2025 4:44 PM CDT 02/21/2025 4:44 PM CDT Result [facility] Olena [facility] Property[facility] POCT ORDERABLES - DEVICE Final Result Performing Organization Address City/[facility] Co de Phone Number [facility] [place] [address] * POCT glucose (02/21/2025 12:11 PM CDT) Glucose, POC 162 70 - 199 mg/dL Blood 02/21/2025 12:1 1 PM CDT 02/21/2025 12:11 PM CDT [facility] LAB POCT ORDERABLES - DEVICE Final Result Performing Organization Address [facility] Co de Phone Number [facility] [place] [address] * POCT glucose (02/21/2025 8:27 AM CDT) Glucose, POC 122 70 - 199 mg/dL Blood 02/21/2025 8:27 AM CDT 02/21/2025 8:27 AM CDT [employer] LAB POCT ORDERABLES - DEVICE Final Result Performing Organization Address [facility] Co de Phone Number [facility] [place] [address] * (ABNORMAL) POCT glucose (02/20/2025 9:08 PM CDT) [facility] Glucose, POC 220(H) 70 - 199 mg/dL Blood 02/20/2025 9:08 PM CDT 02/20/2025 9:08 PM CDT Ellyn [employer] DO LAB POCT ORDERABLES - DEVICE Final Result Performing Organization Address [facility] de Phone Number [facility] Department [place] [address] * (ABNORMAL) eGFR (02/20/2025 7:04 PM CDT) [...] DO LAB BLOOD ORDERABLE S Final Result [facility] Department [place] [address] * (ABNORMAL) Differential, auto (02/20/2025 7:04 PM CDT) Neutrophil abs 6.21 1.50 - 6.50 K/cumm Imm gran abs 0.06 0.00 - 0.10 K/cumm [facility] Lymphocyte abs 0.46(L) 0.80 - 3.30 K/cumm [facility] Monocyte abs 0.84(H) 0.20 - 0.80 K/cumm [facility] Eosinophil abs 0.05 0.00 - 0.50 K/cumm [facility] Basophil abs 0.02 0.00 - 0.10 K/cumm [facility] Neutrophil pct 81.2 % [facility] Comment: Interpretive Data Percent cell count reference ranges are not reported, since discordance with absolute values may lead to misinterpretation of CBC data. Current Interpretive Data was last revised on 2017. Imm gran pct 0.8 % [facility] Comment: Interpretive Data Percent cell count reference ranges are not reported, since discordance with absolute values may lead to misinterpretation of CBC data. Current Interpretive Data was last revised on 2017. Lymphocyte pct 6.0 % [facility] Comment: Interpretive Data Percent cell count reference ranges are not reported, since discordance with absolute values may lead to misinterpretation of CBC data. Current Interpretive Data was last revised on 2017. Monocyte pct 11.0 % [facility] Comment: Interpretive Data Percent cell count reference ranges are not reported, since discordance with absolute values may lead to misinterpretation of CBC data. Current Interpretive Data was last revised on 2017. Eosinophil pct 0.7 % [facility] Comment: Interpretive Data Percent cell count reference ranges are not reported, since discordance with absolute values may lead to misinterpretation of CBC data. Current Interpretive Data was last revised on 2017. Basophil pct 0.3 % [facility] Comment: Interpretive Data Percent cell count reference ranges are not reported, since discordance with absolute values may lead to misinterpretation of CBC data. Current Interpretive Data was last revised on 2017. Blood 02/20/2025 7:04 PM CDT 02/20/2025 8:30 PM CDT us Ellyn Gomez DO LAB BLOOD ORDERABLE S Final Result [facility] Department [place] [address] * (ABNORMAL) CBC with auto differential (02/20/2025 7:04 PM CDT) WBC 7.64 3.80 - 9.90 K/cumm Hgb 14.0 13.0 - 17.5 g/dL [facility] Hct 44.7 38.9 - 50.3 % [facility] Plt 189 150 - 400 K/cumm [facility] MPV 11.1 9.1 - 12.3 fL [facility] RBC 4.43 4.30 - 5.80 M/cumm [facility] MCV 100.9(H) 81.3 - 96.4 fL [facility] MCH 31.6 27.1 - 33.3 pg [facility] MCHC 31.3(L) 32.3 - 35.7 g/dL [facility] RDW CV 15.6(H) 11.1 - 14.9 % [facility] RDW SD 58.4(H) 35.7 - 48.1 fL [facility] NRBC abs 0.00 0.00 - 0.01 K/cumm [facility] Blood 02/20/2025 7:04 PM CDT 02/20/2025 8:30 PM CDT [facility] LAB BLOOD ORDERABLE S Final Result Performing Organization Address City/[facility]/ZIP Co de Phone Number [facility] [place] [address] * Phosphorus (02/20/2025 7:04 PM CDT) Pathologist [facility] Phosphorus, pl 3.4 2.3 - 4.5 mg/dL Blood 02/20/2025 7:04 PM CDT 02/20/2025 8:30 PM CDT [facility] BLOOD ORDERABLE S Final Result Performing Organization Address [facility] Co de Phone Number [facility] [place] [address] * Magnesium (02/20/2025 7:04 PM CDT) Pathologist [facility] Magnesium 1.7 1.4 - 2.5 mg/dL Blood 02/20/2025 7:04 PM CDT 02/20/2025 8:30 PM CDT [facility] LAB BLOOD ORDERABLE S Final Result Performing Organization Address City/[facility] Co de Phone Number [facility] [place] [address] * (ABNORMAL) Hemoglobin A1c (02/20/2025 7:04 PM CDT) Hgb A1C 5.8(H) 4.0 - 5.6 % Estimated Average Glucose 120 mg/dL [facility] Comment: The ADA recommends reporting an [...] NP LAB BLOOD ORDERABLES Linsey elizalde Result [facility] Department [place] [address] * (ABNORMAL) Basic metabolic panel (02/20/2025 7:04 PM CDT) Sodium 141 135 - 145 mmol/L Potassium, pl 4.4 3.3 - 4.9 mmol/L [facility] Comment:Hemolyzed; Potassium value may be falsely elevated by as much as 0.6-1.0 mmol/L. Suggest redraw and reanalysis. Chloride 105 97 - 110 mmol/L [facility] CO2 23 22 - 32 mmol/L [facility] Anion gap 13 2 - 15 mmol/L [facility] BUN 26(H) 6 - 25 mg/dL [facility] Creatinine 1.63(H) 0.80 - 1.30 mg/dL [facility] Glucose 172 70 - 199 mg/dL [facility] Comment: Interpretive Data Fasting glucose >/= [...] 2022. Calcium 9.3 8.5 - 10.3 mg/dL [facility] Blood 02/20/2025 7:04 PM CDT 02/20/2025 8:30 PM CDT Ellyn Gomez DO LAB BLOOD ORDERABLE S Final Result [facility] Department [place] [address] * XR Shoulder Left 2 or More Views (02/20/2025 12:32 PM CDT) Anatomical Region Laterality Modality Upper Extremities, Shoulder Left Digi pieter Radiography 02/20/2025 3:00 PM CDT Impressions 02/20/2025 3:13 PM CDT 1. 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 Gisselle Slater SECURITY SUPPORT ANALYST IMG XR PROCEDURES Final R esult * POCT glucose (02/20/2025 12:12 PM CDT) Glucose, POC 192 70 - 199 mg/dL Blood 02/20/2025 12:1 2 PM CDT 02/20/2025 12:12 PM CDT [facility] Olena [facility] DO LAB POCT ORDERABLES - DEVICE Final Result Performing Organization Address [facility]/ZIP Co de Phone Number [facility] [place] [address] * POCT glucose (02/20/2025 7:50 AM CDT) [facility] Glucose, POC 102 70 - 199 mg/dL Blood 02/20/2025 7:50 AM CDT 02/20/2025 7:50 AM CDT [facility] Olena [facility] LAB POCT ORDERABLES - DEVICE Final Result Performing Organization Address [facility] de Phone Number [facility] Department [place] [address] * Drugs of Abuse Screen, Urine with Reflex Confirmation (02/20/2025 4:56 AM CDT) [facility] Amphetamine, ur Not Detected CutOff 500ng/mL Comment: Interpretive Data - Amphetamines: Samples containing greater than 500 ng/mL d-methamphetamine or other cross-reacting amphetamine compounds are reported as positive. Amphetamine immunoassays are subject to significant false positive rates due to cross-reactivity of non-amphetamine drugs. Confirmatory testing required for definitive results. Current Interpretive Data was last reviewed 2023. Barbiturates, ur Not Detected CutOff 200ng/mL [facility] Comment: Interpretive Data - Barbiturates: Samples [...] Cocaine, ur Not Detected CutOff 150ng/mL [facility] Comment: Interpretive Data - Cocaine: Samples containing [...] 2023. Oxycodone, ur Not Detected CutOff 100ng/mL [facility] Comment: Interpretive Data - Oxycodone: Samples containing greater than 100 ng/mL oxycodone or other cross-reacting compounds are reported as positive. False positive and false negative results are possible. Confirmatory testing required for definitive results. Current Interpretive Data was last reviewed 2023. Phencyclidine, ur Not Detected CutOff 25 ng/mL [facility] Comment: Interpretive Data - Phencyclidine: Samples containing greater than 25 ng/mL phencyclidine or other cross-reacting compounds are reported as positive. False positive and false negative results are possible. Confirmatory testing required for definitive results. Current Interpretive Data was last reviewed 2023. Urine Creatinine 74 mg/dL [facility] Comment: Interpretive Data Urine Creatinine: < 10 mg/dL is extremely dilute = or > 10 but < 20 mg/dL is dilute = or > 20 mg/dL is normal Current Interpretive Data was last revised on 2017. Urine 02/20/2025 4:56 AM CDT 02/20/2025 5:37 AM CDT Narrative [facility] - 02/20/2025 6:25 AM CDT Drug of Abuse screening is performed by immunoassay for medical purposes only. This is not to be used for Pain Management purposes. If Detected, confirmation testing will be performed for Amphetamines, Cocaine, Fentanyl, Methadone, Opiates, Oxycodone or Phencyclidine. us Adrian Pizarro MD LAB URINE ORDERABLES Final Re sult [facility] Department [place] [address] * CT Head and Cervical Spine WO [...] POCT glucose (02/20/2025 12:34 AM CDT) Pathologist [facility] Glucose, POC 177 70 - 199 mg/dL Blood 02/20/2025 12:3 4 AM CDT 02/20/2025 12:34 AM CDT [facility] Olena Gomez DO LAB POCT ORDERABLES - DEVICE Final Result Performing Organization Address City/[facility]/ZIP Co de Phone Number [facility] Department [place] [address] * ECG 12 lead (02/19/2025 11:26 PM CDT) [facility] Ventricular Rate EKG/Min 95 BPM [facility] Atrial Rate 227 BPM [facility] QRS-Interval (MSEC) 128 ms [facility] QT-Interval (MSEC) 390 ms [facility] QTc 490 ms [facility] R [place] -49 degrees [facility] T [place] 112 degrees [facility] Diagnosis Atrial flutter with variable A-V block Left axis deviation Non-specific intra-ventricu lar conduction block Abnormal QRS-T angle, consider primary T wave abnormality Abnormal ECG When compared with ECG of 08-NOV-2021 07:27, Significant changes have occurred Confirmed by WILLIAM LAI M.D ([id number]) on 02/20/2025 9:34:02 AM [facility] 02/19/2025 11:2 6 PM CDT 02/20/2025 9:34 AM CDT Ellyn Olena [employer] DO ECG ORDERABLES Fin al Result [facility] * (ABNORMAL) eGFR (02/19/2025 11:16 PM CDT) [...] ORDERABLES Linsey l Result Performing Organization Address City/[facility]/ZIP Co de Phone Number [facility] Department [place] [address] * Albumin (02/19/2025 11:16 PM CDT) Pathologist [facility] Albumin 3.5 3.5 - 5.0 g/dL Blood 02/19/2025 11:1 6 PM CDT 02/19/2025 11:27 PM CDT Gino Thompson MD LAB BLOOD ORDERABLES Linsey l Result [facility] Department [place] [address] * (ABNORMAL) Lipid panel (02/19/2025 11:16 PM [...] revised on 2018. Triglycerides 101 <=149 mg/dL [facility] Comment: Hemolyzed; result may be falsely [...] revised on 2018. HDL 37(L) >=40 mg/dL [facility] Comment: Interpretive Data Ages < or [...] on 2018. LDL, calculated 44 <=129 mg/dL [facility] Comment: Interpretive Data Ages < or [...] revised on 2024. Non-HDL Cholesterol 63 mg/dL [facility] Comment: Interpretive Data Ages < or = [...] last revised on 2018. Chol/HDL ratio 3 [facility] Blood 02/19/2025 11:1 6 PM CDT 02/19/2025 11:27 PM CDT Ellyn Gomez DO LAB BLOOD ORDERABLE S Final Result [facility] Department [place] [address] * (ABNORMAL) Basic metabolic panel (02/19/2025 11:16 PM CDT) Sodium 141 135 - 145 mmol/L Potassium, pl See Comment 3.3 - 4.9 mmol/L [facility] Comment:Credited; Hemolyzed Specimen Chloride 108 97 - 110 mmol/L [facility] CO2 20(L) 22 - 32 mmol/L [facility] Anion gap 13 2 - 15 mmol/L [facility] BUN 30(H) 6 - 25 mg/dL [facility] Creatinine 1.71(H) 0.80 - 1.30 mg/dL [facility] Glucose 156 70 - 199 mg/dL [facility] Comment: Interpretive Data Fasting glucose >/= [...] 2022. Calcium 8.3(L) 8.5 - 10.3 mg/dL [facility] Blood 02/19/2025 11:1 6 PM CDT 02/19/2025 11:27 PM CDT us Jules Moore MD LAB BLOOD ORDERABLES Linsey l Result Performing Organization Address City/[facility]/ZIP Co de Phone Number [facility] Department [place] [address] * POCT glucose (02/19/2025 9:45 PM CDT) [facility] Signature Glucose, POC 88 70 - 199 mg/dL Blood 02/19/2025 9:45 PM CDT 02/19/2025 9:45 PM CDT us Ellyn Gomez DO LAB POCT ORDERABLES - DEVICE Final Result Performing Organization Address City/[facility] Co de Phone Number [facility] Department [place] [address] * MS CRITICAL CARE ILL/INJURED PATIENT INIT 30-74 MIN [...] 7:30 PM CDT) ABO Rh O Positive [facility] HCLL OTHER 02/19/2025 7:30 PM CDT 02/19/2025 7:41 PM CDT us Adrian Pizarro MD LAB BLOOD ORDERABLES Final Re sult [facility] Department [place] [address] [facility] * Neuro CT Outside Consult (02/19/2025 7:18 [...] images may or may not represent the nikolski source data set and thus may contain [...] IMAGING STUDY STUDY INITIALLY PERFORMED: 02/19/2025 at [facility]. TYPE OF STUDY: Multiple CT images of [...] IMAGING STUDY STUDY INITIALLY PERFORMED: 02/19/2025 at [facility]. TYPE OF STUDY: Multiple CT images of [...] images may or may not represent the nikolski source data set and thus may contain [...] images may or may not represent the nikolski source data set and thus may contain [...] images may or may not represent the nikolski source data set and thus may contain [...] Outside Reference (02/19/2025 7:15 PM CDT) Impressions [facility] - 02/19/2025 7:15 PM CDT These images are for Reference purposes only and have not been reviewed by [facility] Radiology. There will be no report generated by a [facility] Radiologist. Narrative [facility] - 02/19/2025 7:15 PM CDT EXAMINATION: Images For Reference Purposes Only us Adrian Pizarro MD IMG XR PROCEDURES Final Resul t Performing Organization Address City/[facility]/ZIP Co de Phone Number [facility] * (ABNORMAL) Thromboelastometry Panel - Heparin (02/19/2025 [...] ed Result - Final Performing Organization Address City/[facility] Co de Phone Number [facility] Department [place] [address] * (ABNORMAL) Thromboelastometry Panel - Intrinsic (02/19/2025 [...] Platelet Function. J Clin Med. 2019Aug 22 9(1) 399. 2. Jennifer O, Kasandra CM, Rafa N, Satish EE, Satish HB, Aaron HC, Antoine WILL, Kristopher Willis MD, Warner SS, Damon G, Hussein SANDOVAL, Mayelin ML, Justen AV, Justen SG, Costa L, Radha CumminsZ, Giovany M, Royce P, José D, Andry MM. Viscoelastic Hemostatic Assays A Primer on Legacy and New Generation Devices. J Clin Med. 2021Sep 19 11(1) 282. 3. TEZ Operating Manual. Emily Mccrary MA. Azeb 13-15. D- [id number] [facility]. Blood 02/19/2025 6:43 PM CDT 02/19/2025 6:54 PM CDT us Timothy Cerna MD LAB BLOOD ORDERABLES Edit ed Result - Final [facility] Department [place] [address] * Thromboelastometry Panel - Fibrinogen (02/19/2025 6:43 PM CDT) FIBTEM-A5 11 5 - 16 mm FIBTEM-A10 13 6 - 17 mm [facility] FIBTEM-A20 14 6 - 18 mm [facility] FIBTEM-MCF 14 9 - 19 mm [facility] Blood 02/19/2025 6:43 PM CDT 02/19/2025 6:54 PM CDT Timothy Cerna MD LAB BLOOD ORDERABLES Edit ed Result - Final Performing Organization Address [facility] Co de Phone Number [facility] Department [place] [address] * (ABNORMAL) Thromboelastometry Panel - Extrinsic (02/19/2025 6:43 PM CDT) EXTEM-CT >172 51 - 73 sec EXTEM-A5 31(L) 33 - 52 mm [facility] EXTEM-A10 47 45 - 62 mm [facility] EXTEM-A20 58 54 - 69 mm [facility] EXTEM-MCF 62 57 - 72 mm [facility] EXTEM-LI60 99 94 - 100 % [facility] EXTEM-ML 1 0 - 6 % [facility] Blood 02/19/2025 6:43 PM CDT 02/19/2025 6:54 PM CDT Timothy Cerna MD LAB BLOOD ORDERABLES Edit ed Result - Final Performing Organization Address [facility] de Phone Number [facility] Department [place] [address] * (ABNORMAL) Differential, auto (02/19/2025 6:43 PM CDT) Neutrophil abs 5.74 1.50 - 6.50 K/cumm Imm gran abs 0.03 0.00 - 0.10 K/cumm [facility] Lymphocyte abs 0.48(L) 0.80 - 3.30 K/cumm [facility] Monocyte abs 0.83(H) 0.20 - 0.80 K/cumm [facility] Eosinophil abs 0.02 0.00 - 0.50 K/cumm [facility] Basophil abs 0.03 0.00 - 0.10 K/cumm [facility] Neutrophil pct 80.6 % [facility] Comment: Interpretive Data Percent cell count reference ranges are not reported, since discordance with absolute values may lead to misinterpretation of CBC data. Current Interpretive Data was last revised on 2017. Imm gran pct 0.4 % [facility] Comment: Interpretive Data Percent cell count reference ranges are not reported, since discordance with absolute values may lead to misinterpretation of CBC data. Current Interpretive Data was last revised on 2017. Lymphocyte pct 6.7 % [facility] Comment: Interpretive Data Percent cell count reference ranges are not reported, since discordance with absolute values may lead to misinterpretation of CBC data. Current Interpretive Data was last revised on 2017. Monocyte pct 11.6 % [facility] Comment: Interpretive Data Percent cell count reference ranges are not reported, since discordance with absolute values may lead to misinterpretation of CBC data. Current Interpretive Data was last revised on 2017. Eosinophil pct 0.3 % [facility] Comment: Interpretive Data Percent cell count reference ranges are not reported, since discordance with absolute values may lead to misinterpretation of CBC data. Current Interpretive Data was last revised on 2017. Basophil pct 0.4 % [facility] Comment: Interpretive Data Percent cell count reference ranges are not reported, since discordance with absolute values may lead to misinterpretation of CBC data. Current Interpretive Data was last revised on 2017. Blood 02/19/2025 6:43 PM CDT 02/19/2025 6:58 PM CDT us Timothy Cerna MD LAB BLOOD ORDERABLES Linsey l Result [facility] Department of Laboratories [place], [place] [id number] * (ABNORMAL) POC Blood Gas and Chemistries, Venous - (02/19/2025 6:43 PM CDT) pH, David POC 7.39 7.32 - 7.43 pCO2, david POC 36(L) 40 - 50 mmHg [facility] pO2, david POC 44 mmHg [facility] Na, POC 139 135 - 145 mmol/L [facility] K POC 5.1(H) 3.3 - 4.9 mmol/L [facility] Comment: Hemolyzed;K+ value may be falsely elevated 0.3-0.6 Interpretive Data Not all point of care methods assess for hemolysis. Confirm with instrument and retest K+ if not consistent with clinical signs and symptoms. Current Interpretive Data was last revised on 2023. Cl, POC 111(H) 97 - 110 mmol/L [facility] Ionized Ca, POC 4.49(L) 4.50 - 5.10 mg/dL [facility] Glucose, POC 86 70 - 199 mg/dL [facility] Lactate POC 1.7 0.7 - 2.0 mmol/L [facility] MetHb, David POC 0.1 0.0 - 1.9 % [facility] O2 Sat, David POC ([place]) 70 % [facility] Base excess, POC -2.6 mmol/L [facility] Hct, POC 43.0 41.4 - 51.6 % [facility] Total Hb, POC 14.2 13.8 - 17.2 g/dL [facility] Blood 02/19/2025 6:43 PM CDT 02/19/2025 6:43 PM CDT us Adrian Pizarro MD LAB POCT ORDERABLES - DEVICE Final Result [facility] Department [place] [address] * (ABNORMAL) CBC with auto differential (02/19/2025 6:43 PM CDT) Pathologist [facility] WBC 7.13 3.80 - 9.90 K/cumm Hgb 13.6 13.0 - 17.5 g/dL [facility] Hct 42.9 38.9 - 50.3 % [facility] Plt 204 150 - 400 K/cumm [facility] MPV 11.1 9.1 - 12.3 fL [facility] RBC 4.25(L) 4.30 - 5.80 M/cumm [facility] MCV 100.9(H) 81.3 - 96.4 fL [facility] MCH 32.0 27.1 - 33.3 pg [facility] MCHC 31.7(L) 32.3 - 35.7 g/dL [facility] RDW CV 15.9(H) 11.1 - 14.9 % [facility] RDW SD 58.5(H) 35.7 - 48.1 fL [facility] NRBC abs 0.00 0.00 - 0.01 K/cumm [facility] Blood 02/19/2025 6:43 PM CDT 02/19/2025 6:58 PM CDT Adrian Pizarro MD LAB BLOOD ORDERABLES Final Re sult Performing Organization Address [facility] Co de Phone Number [facility] [place] [address] * aPTT (02/19/2025 6:43 PM CDT) aPTT [...] ORDERABLES Final Re sult Performing Organization Address City/[facility] Co de Phone Number [facility] [place] [address] * (ABNORMAL) Protime-INR (02/19/2025 6:43 PM CDT) PT 14.5(H) 9.7 - 13.0 sec INR 1.33(H) 0.90 - 1.20 [facility] Comment: Interpretive data Oral anticoagulant therapeutic ranges: Venous thromboembolism prophylaxis or treatment: 2.0-3.0 CARDIOLOGY Standard range: 2.0-3.0 High-intensity range: 2.5-3.5 Refer to indication-specific guidelines for appropriate target ranges for prosthetic heart valve replacement. Current interpretive data was last revised on 2019. Blood 02/19/2025 6:43 PM CDT 02/19/2025 7:00 PM CDT Adrian Pizarro MD LAB BLOOD ORDERABLES Final Re sult Performing Organization Address [facility] Co de Phone Number [facility] Department [place] [address] * Type and screen (02/19/2025 6:43 PM CDT) ABO Rh O Positive Tasia, indirect Negative [facility] Blood 02/19/2025 6:43 PM CDT 02/19/2025 7:18 PM CDT Narrative [facility] - 02/19/2025 8:33 PM CDT Has the patient had Daratumumab or Isatuximab in the past 6 months?->Unknown Adrian Pizarro MD LAB BLOOD BANK TEST ORDERABLE S Final Result Performing Organization Address [facility] Co de Phone Number [facility] Department [place] [address] * Ethanol (02/19/2025 6:43 PM CDT) Ethanol [...] MD LAB BLOOD ORDERABLES Final Re sult [facility] Department [place] [address] * Hepatitis panel, acute Blood (04/27/2023 11:14 AM CDT) Hep A IgM Nonreactive Nonreactive Hep B core IgM Nonreactive Nonreactive [facility] Hep C Ab Nonreactive Nonreactive [facility] Comment:Antibodies to HCV no t detected. Does NOT exclude the possibility of recent exposure to HCV. Current interpretive data was last revised on 22 HepBsAg Nonreactive Nonreactive [facility] Blood 04/27/2023 11:1 4 AM CDT 04/27/2023 2:07 PM CDT us Beverley Torres MD LAB MICROBIOLOGY - GENERAL ORDER TRAY Final Result Performing Organization Address [facility] Co de Phone Number [facility] Department [place] [address] from Last 3 Months or Most Recently Relevant to Health Maintenance Insurance * Guarantor: William White Account Type Relation to Patient Date of Phone Billing Address Personal/Family Self 1945 [address] [place] [address] T MEDICARE * Guarantor: William White Account Type Relation to Patient Date of Phone Billing Address Personal/Family Self 1945 [address] [place] [address] AET MEDICARE * Guarantor: William White Account Type Relation to Patient Date of Phone Billing Address Personal/Family Self 1945 [address] [place] [address] T MEDICARE Advance Directives For more information, please contact: [phone] * Full Code (Latest Code Status on File) Date Activated Date Inactivated Comments 02/20/2025 12:18 AM 02/25/2025 6:27 PM Care Teams Abattoir Supervisor Relationship Specialty Start Date End Date Shagufta Khan MD PCP - General Family Medicine 02/02/21
--- OUTSIDE RECORDS SUMMARY | 2025-03-24 13:48 | XMS_ITS | Encounter Summary ---
Author Organization [facility] Health Address [address] [facility] [place] [address] Care Team Providers Care Corporate Quality Manager Name Role Phone Elizabeth Wei MD Primary Care Provider [phone] Shagufta Khan MD Primary Care Provider [phone] Encounter Details Date Type Department Care Team (Late st Contact Info) Description 08/28/2019 Lab Requisition [facility] [address] [facility], [place] [phone] Arminda Boyd, [address] [facility] 3 [place] [address] Social History Tobacco Use Types Packs/Day Years [...] Description 06/10/2025 2:00 PM CDT Office Visit [facility] - Nephrology [address] [place] [address], [place] [address] Karthikeyan Elizabeth MD [address] [place] [address] [place] [address] documented as of this encounter Procedures Procedure Name Priority Date/Time Associated Diagnosis Comments DERMATOPATHOLOGY Routine 08/27/2019 12:0 0 AM FIELD LIABILITY GENERALIST documented in this encounter Results * DERMATOPATHOLOGY (08/27/2019 12:00 AM FIELD LIABILITY GENERALIST) Case Report Dermatopathology Report Case: [id number] Authorizing Provider: Arminda Boyd DO Collected: 08/27/2019 12:00 AM Ordering Location: [facility] Received: 08/28/2019 10:17 AM Pathologist: Caitie Hutchins MD Specimens: A) - Skin, right upper arm B) - Skin, left abdomen 0 1:18 PM FIELD LIABILITY GENERALIST DERMATOPATHOLOGY LABORATORY Final Diagnosis Specimen A. SKIN, right upper arm: SOLAR LENTIGO (L81.4) SEBORRHEIC KERATOSIS (L82.1) DERMAL FIBROSIS (L90.5) (see microscopic description) Specimen B. 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 Irreg color and border. B: Nevus R/O atypia. 0 1:18 PM [facility] DERMATOPATHOLOGY LABORATORY Gross Description Specimen A: Received is one formalin filled container labeled with the patient's name and designated right upper arm. The specimen consists of a shave measuring 6a5u4as. Jar 0. Specimen B: Received is one formalin filled container labeled with the patient's name and designated left abdomen. The specimen consists of a shave measuring 0b3b9or. Jar 0. 0 1:18 PM [facility] DERMATOPATHOLOGY LABORATORY Microscopic Description Specimen [...] or Compound Dysplastic Nevus) 0 1:18 PM [facility] DERMATOPATHOLOGY LABORATORY Disclaimer An external [...] purposes. Billing Codes Specimen Charges Stain Charges 15331 02651 1 1 67358 1 0 1:18 PM FIELD LIABILITY GENERALIST DERMATOPATHOLOGY LABORATORY Embedded Images 0 1:18 PM FIELD LIABILITY GENERALIST DERMATOPATHOLOGY LABORATORY Pathology/Cytology TISSUE SPECIMEN FROM SKIN / Unknown 08/27/2019 08/28/2019 10:17 AM FIELD LIABILITY GENERALIST Miscellaneous samples (specimen) TISSUE SPECIMEN FROM SKIN / Unknown 08/27/2019 08/28/2019 10:17 AM FIELD LIABILITY GENERALIST us Arminda Boyd DO LAB - PATHOLOGY/CYTOLOGY ORDERABLES Final Result DERMATOPATHOLOGY LABORATORY [facility] - Department of Dermatology [address] [place] [address], 5th Floor Lab [address] [phone] documented in this encounter Visit Diagnoses Not on filedocumented in this encounter Care Teams Corporate Quality Manager Relationship Specialty Start Date End Date Elizabeth Wei MD PCP - General Family Medicine 01/22/19 09/25/23 Shagufta Khan MD [address] [place] [address] PCP - General Family Medicine 09/26/23 documented as of this encounter
--- OUTSIDE RECORDS SUMMARY | 2025-03-24 13:48 | XMS_ITS | Clinical Summary ---
Author Organization [facility] Address [address] [facility] [address] [place] [address] Care Team Providers Care Piggyback Clerk Name Role Phone Shagufta Khan MD Primary Care Provider [phone] Source Comments [facility],non-owned Affiliates and Associated Physician Practices is amultiple site organization consisting of ambulatory clinics and hospital sitesin [place], [place], [place] and [place]. This disclosure is being madepursuant to the Care Everywhere program and may not contain all information available regarding this patient. 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 12/28/2017 Morbid obesity [...] Type Department Care Team Description 02/04/2025 Refill [facility] - Nephrology [address] [place] [address], [facility] [place] [address] Karthikeyan Elizabeth MD Refill Request 12/31/2024 1:30 PM CDT Office Visit [facility] - Nephrology [address] [place] [address] Karthikeyan Elizabeth MD Stage 3 chronic kidney disease, unspecified whether stage 3a or 3b CKD (HCC) (Primary Dx) 12/31/2024 Travel 12/22/2024 Orders Only [facility] - Nephrology [address] [place] [address], [facility] [place] [address] Karthikeyan Elizabeth MD from Last 3 Months [...] CDT Respiratory Rate 18 07/02/2024 1:35 PM APPAREL RENTAL CLERK Oxygen Saturation 97% 12/31/2024 1:47 PM CDT Inhaled Oxygen Concentration - - Weight 153.3 kg (338 lb) 12/31/2024 1:47 PM CDT Height 185.4 cm (6' 1) 07/02/2024 1:35 PM APPAREL RENTAL CLERK Body Mass Index 44.59 07/02/2024 1:35 PM APPAREL RENTAL CLERK Plan of Treatment Upcoming Encounters Date Type Department Care Team (Late st Contact Info) Description 06/10/2025 2:00 PM CDT Office Visit [facility] - Nephrology [address] [place] [address] [place] [address] Karthikeyan Elizabeth MD [address] [place] [address] [place] [address] Health Maintenance Due Date Last Done Comments [...] - 12/23/2024 1:09 PM CDT Performed at: [address] [place] [address] [place] [id number] Gravel Hauler: Peyman Lilly PhD, Phone: [phone] us Karthikeyan Farmer MD LAB - URINE CHEM ISTRY ORDERABLES Final Result [facility] INSURANCE BILL [address] [place] [address] * (ABNORMAL) URINALYSIS REFLEX TO MICROSCOPIC NO CULTURE (12/22/2024 1:54 PM CDT) Specific [place] UA 1.018 1.005 - 1.030 [facility] INSURANCE [...] was indicated and was performed. Performed at: [facility] [id number] Gravel Hauler: Peyman Lilly PhD, Phone: [phone] WBC UA None seen 0 - 5 [...] - 12/23/2024 8:11 AM CDT Performed at: [facility] [address] [id number] Gravel Hauler: Peyman Lilly PhD, Phone: [phone] us Karthikeyan Farmer MD LAB - URINALYSIS ORDERABLES Final Result [facility] INSURANCE BILL [address] [place] [address] * (ABNORMAL) CBC WITH DIFFERENTIAL (12/22/2024 1:54 PM CDT) [facility] WBC 6.2 3.4 - 10.8 x10E3/uL [facility] [...] 7:09 AM CDT Performed at: 01 - [address] [id number] Gravel Hauler: Peyman Lilly PhD, Phone: [phone] Karthikeyan Farmer MD LAB - HEMATOLOGY ORDERABLES Final Result [facility] INSURANCE BILL [address] [place] [address] * (ABNORMAL) RENAL FUNCTION PANEL (12/22/2024 1:54 [...] - 12/23/2024 8:11 AM CDT Performed at: [address] [place] [id number] Gravel Hauler: Peyman Lilly PhD, Phone: [phone] us Karthikeyan Farmer MD LAB - CHEMISTRY ORDERABLES Final Result [facility] INSURANCE BILL [address] [place] [address] * (ABNORMAL) HEMOGLOBIN A1C (EXTERNAL RESULT ENTRY) (06/17/2021) Hemoglobin A1c (EXTERNAL RESULT) 7.3(A) 4.8 - 5.6 % [facility] INSURANCE BILL Blood BLOOD SPECIMEN / Unknown 06/17/2021 us Historical Provider LAB - CHEMISTRY ORDERABLE S Final Result [facility] INSURANCE BILL [address] [place] [address] from Last 3 Months or Most Recently Relevant to Health Maintenance Insurance AET AETNA AETNA MEDICARE ADV Advance Directives * Full Code (Latest Code Status on File) Date Activated Date Inactivated Comments 02/27/2019 3:26 PM 03/01/2019 6:53 PM * Full Code Date Activated Date Inactivated Comments 02/27/2019 6:49 AM 02/27/2019 3:26 PM Care Teams Piggyback Clerk Relationship Specialty Start Date End Date Shagufta Khan MD [address] [place] [address] PCP - General Family Medicine 09/26/23
--- OUTSIDE RECORDS SUMMARY | 2025-03-24 13:48 | XMS_ITS | Clinical Summary ---
Author Organization [facility] Address [address] [facility] [address] [address] [place] [address] Care Team Providers Care Commercial Leasing Agent Name Role Phone Shagufta Khan MD Primary Care Provider [phone] Allergies Active Allergy Reactions Criticality Noted Date [...] Sex Assigned at Male 07/18/2024 10:14 PM FILM MOUNTER Legal Sex Male 8:42 AM FILM MOUNTER Gender Identity Male 07/18/2024 10:14 PM FILM MOUNTER Sexual Orientation Straight 07/18/2024 10 :14 PM FILM MOUNTER Last Filed Vital Signs Vital Sign Reading [...] 185.4 cm (6' 1) 10/03/2023 1:43 PM FILM MOUNTER Body Mass Index 43.27 10/03/2023 1:43 PM FILM MOUNTER Plan of Treatment Health Maintenance Due Date [...] Insurance AETNA OPEN CHOICE PPO Care Teams Commercial Leasing Agent Relationship Specialty Start Date End Date Shagufta Khan MD [address] [place] [address] PCP - General Family Practice 10/02/23
--- OUTSIDE RECORDS SUMMARY | 2025-03-24 13:48 | XMS_ITS | Encounter Summary ---
Author Organization [facility] Health Address [address] [facility] [place] [address] Care Team Providers Care Sew On Operator Name Role Phone Elizabeth Wei MD Primary Care Provider [phone] Shagufta Khan MD Primary Care Provider [phone] Encounter Details Date Type Department Care Team (Late st Contact Info) Description 02/25/2019 Lab Requisition [facility] [address] [facility], [facility] [place] [address] Leola Pereyra MD [address] [facility] 3 [place] [address] Social History Tobacco Use Types Packs/Day Years [...] 06/10/2025 2:00 PM CDT Office Visit [facility] - Nephrology [address] [facility], [place] [address] Karthikeyan Elizabeth MD [address] [place] [address] [address] [place] [address] documented as of this encounter Procedures Procedure Name Priority Date/Time Associated Diagnosis Comments DERMATOPATHOLOGY Routine 02/24/2019 12:0 0 AM CDT documented in this encounter Results * DERMATOPATHOLOGY (02/24/2019 12:00 AM CDT) Case Report Dermatopathology Report Case: [id number] Authorizing Provider: Leola Pereyra MD Collected: 02/24/2019 [...] specimen consists of a shave biopsy measuring 72v73d1 mm. Jar 0. 9 3:52 PM CDT [...] determined by the Dermatopathology Laboratory at [facility], directed by Dr. John Adams. These tests need not be, and therefore are not, approved by the [place] Food and Drug Administration. The tests are used for clinical purposes. Billing Codes Specimen Charges Stain Charges 18329 1 83838 26277 1 1 3:52 PM CDT DERMATOPATHOLOGY LABORATORY [...] PATHOLOGY/CYTOLOGY OR DERABLES Final Result DERMATOPATHOLOGY LABORATORY [facility] - Department of Dermatology [address] [facility] 5th [place] [address], [facility] [phone] documented in this encounter Visit Diagnoses Not on filedocumented in this encounter Care Teams Sew On Operator Relationship Specialty Start Date End Date Elizabeth Wei MD PCP - General Family Medicine 01/22/19 09/25/23 Shagufta Khan MD [address] [place] [address] PCP - General Family Medicine 09/26/23 documented as of this encounter
--- OUTSIDE RECORDS SUMMARY | 2025-03-24 13:48 | XMS_ITS | Encounter Summary ---
Author Organization [facility] Health Address [address] [facility] [address] Care Team Providers Care Intake Nurse Name Role Phone Elizabeth Wei MD Primary Care Provider [phone] Shagufta Khan MD Primary Care Provider [phone] Reason for Visit * Reason Onset Date Comments MEDICATION REFILL 04/19/2019 Encounter Details Date Type Department Care Team (Late st Contact Info) Description 04/19/2019 Refill [facility] [address] [place] [address] Rolando Long MD [address] [facility] [address] [place] [address] MEDICATION REFILL Social History Tobacco Use Types [...] [facility] - Nephrology [address] [facility], [place] [address] Karthikeyan Elizabeth MD [address] [place] [address] [place] [address] documented as of this encounter Visit Diagnoses Not on filedocumented in this encounter Care Teams Intake Nurse Relationship Specialty Start Date End Date Elizabeth Wei MD PCP - General Family Medicine 01/22/19 09/25/23 Shagufta Khan MD [address] [place] [address] PCP - General Family Medicine 09/26/23 documented as of this encounter
--- OUTSIDE RECORDS SUMMARY | 2025-03-24 13:48 | XMS_ITS | Encounter Summary ---
Author Organization [facility] Address [address] [place] [address] Phone Care Team Providers Care Hardware Test Engineer Name Role Phone Shagufta Khan MD Primary Care Provider [phone] Encounter Details Date Type Department Care Team [...] on file Legal Sex Male 2:28 AM HOOP PUNCH AND COILER OPERATOR Gender Identity Male 07/28/2020 10:07 AM HOOP PUNCH AND COILER OPERATOR Sexual Orientation Straight 07/28/2020 10 :07 AM HOOP PUNCH AND COILER OPERATOR documented as of this encounter Plan of Treatment Not on file documented as of this encounter Procedures Procedure Name Priority Date/Time Associated Diagnosis Comments SCAN - LABS 03/06/2023 documented in this encounter Results * SCAN - LABS (03/06/2023) us Provider Scanning Final Result documented in this encounter Visit Diagnoses Not on filedocumented in this encounter Care Teams Hardware Test Engineer Relationship Specialty Start Date End Date Shagufta Khan MD PCP - General Family Medicine 02/02/21 documented as of this encounter
--- OUTSIDE RECORDS SUMMARY | 2025-03-24 13:48 | XMS_ITS | Encounter Summary ---
Author Organization [facility] Health Address [address] [facility] [place] [address] Care Team Providers Care Medicare Insurance Specialist Name Role Phone Elizabeth Wei MD Primary Care Provider [phone] Shagufta Khan MD Primary Care Provider [phone] Reason for Visit * Reason Onset Date Comments MEDICATION REFILL 11/02/2020 Encounter Details Date Type Department Care Team (Late st Contact Info) Description 11/02/2020 Refill [facility] - Nephrology [address] [place] [address], [place] [address] Karthikeyan Elizabeth MD [address] [place] [address] [place] [address] MEDICATION REFILL Social History Tobacco [...] Assessment Author No 02/27/2019 5:00 PM JEMT Aivla Naqvi RN * Does person have serious [...] Office Visit [facility] - Nephrology [address] [place] [address], [place] [address] Karthikeyan Elizabeth MD [address] [place] [address] [place] [address] documented as of this encounter Visit Diagnoses Not on filedocumented in this encounter Care Teams Medicare Insurance Specialist Relationship Specialty Start Date End Date Elizabeth Wei MD PCP - General Family Medicine 01/22/19 09/25/23 Shagufta Khan MD [address] [place] [address] PCP - General Family Medicine 09/26/23 documented as of this encounter
--- OUTSIDE RECORDS SUMMARY | 2025-03-24 13:48 | XMS_ITS | Encounter Summary ---
Author Organization [facility] Health Address [address] [place] [address] Care Team Providers Care Dining Room Hostess Name Role Phone Elizabeth Wei MD Primary Care Provider [phone] Shagufta Khan MD Primary Care Provider [phone] Encounter Details Date Type Department Care Team (Late st Contact Info) Description 06/05/2019 Lab Requisition [facility] [address] [facility], [place] [id number] Arminda Boyd, [address] [facility] 3 [place] [address] Social History Tobacco Use Types Packs/Day Years [...] Description 06/10/2025 2:00 PM CDT Office Visit [facility] - Nephrology [address] [place] [address], [place] [id number] Karthikeyan Elizabeth MD [address] [place] [address] [place] [address] documented as of this encounter Procedures Procedure Name Priority Date/Time Associated Diagnosis Comments DERMATOPATHOLOGY Routine 06/04/2019 12:0 0 AM CDT documented in this encounter Results * DERMATOPATHOLOGY (06/04/2019 12:00 AM CDT) Case Report Dermatopathology Report Case: [id number] Authorizing Provider: Arminda Boyd DO Collected: 06/04/2019 12:00 AM Ordering Location: [facility] Lab Received: 06/05/2019 05:22 AM [...] The specimen consists of a shave measuring [id number]. Jar 0. 2:28 PM CDT DERMATOPATHOLOGY LABORATORY [...] determined by the Dermatopathology Laboratory at [facility], directed by Dr. John Adams. These tests need not be, and therefore are not, approved by the [place] Food and Drug Administration. The tests are used for clinical purposes. Billing Codes Specimen Charges Stain Charges 04951 1 2:28 PM CDT DERMATOPATHOLOGY LABORATORY Embedded Images 2:28 PM CDT DERMATOPATHOLOGY LABORATORY Pathology/Cytolog y TISSUE SPECIMEN FROM SKIN / Unknown 06/04/2019 06/05/2019 5:22 AM CDT us Arminda Boyd DO LAB - PATHOLOGY/CYTOLOGY ORDERABLES Final Result DERMATOPATHOLOGY LABORATORY [facility] - Department of Dermatology [facility] [facility], [address]th [place] [address], [facility] [phone] documented in this encounter Visit Diagnoses Not on filedocumented in this encounter Care Teams Dining Room Hostess Relationship Specialty Start Date End Date Elizabeth Wei MD PCP - General Family Medicine 01/22/19 09/25/23 Shagufta Khan MD [address] [place] [address] PCP - General Family Medicine 09/26/23 documented as of this encounter
--- OUTSIDE RECORDS SUMMARY | 2025-03-24 13:48 | XMS_ITS | Encounter Summary ---
Author Organization [facility] Healthcare Address [address] [place] [address] Care Team Providers Care Precision Machine Operator Name Role Phone Shagufta Khan MD Primary Care Provider [phone] Encounter Details Date Type Department Care Team (Late st Contact Info) Description 11/18/2024 Orders Only [facility] Information Management [address] [place] [id number] Scanning, Provider Social History Tobacco Use Types [...] on file Legal Sex Male 2:28 AM SPRING COILER Gender Identity Male 07/28/2020 10:07 AM SPRING COILER Sexual Orientation Straight 07/28/2020 10 :07 AM SPRING COILER 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
--- OUTSIDE RECORDS SUMMARY | 2025-03-24 13:48 | XMS_ITS | Encounter Summary ---
Author Organization [facility] Health Address [address] [facility] [place] [address] Care Team Providers Care Oil Program Compliance Specialist Name Role Phone Elizabeth Wei MD Primary Care Provider [phone] Shagufta Khan MD Primary Care Provider [phone] Encounter Details Date Type Department Care Team (Late st Contact Info) Description 12/24/2019 Lab Requisition [facility] [address] [facility], [place] [id number] Arminda Boyd, [address] [facility] [place] [place] [address] [place] [address] Social History Tobacco Use Types Packs/Day Years [...] Description 06/10/2025 2:00 PM CDT Office Visit [facility] - Nephrology [address] [place] [address], [place] [address] Karthikeyan Elizabeth MD [address] [place] [address] [place] [address] documented as of this encounter Procedures Procedure Name Priority Date/Time Associated Diagnosis Comments DERMATOPATHOLOGY Routine 12/23/2019 12:0 0 AM CDT documented in this encounter Results * DERMATOPATHOLOGY (12/23/2019 12:00 AM CDT) Case Report Dermatopathology Report Case: [id number] Authorizing Provider: Arminda Boyd DO Collected: 12/23/2019 12:00 AM Ordering Location: [facility] Received: 12/24/2019 11:36 AM Pathologist: [...] The specimen consists of a shave measuring [id number]. Jar 0. 0 1:14 PM CDT DERMATOPATHOLOGY [...] characteristic determined by the Dermatopathology Laboratory at [facility], directed by Dr. John Adams. These tests need not be, and therefore are not, approved by the [place] Food and Drug Administration. The tests are used for clinical purposes. Billing Codes Specimen Charges Stain Charges 20695 1 0 1:14 PM CDT DERMATOPATHOLOGY LABORATORY Embedded Images 0 1:14 PM CDT DERMATOPATHOLOGY LABORATORY Pathology/Cytolog y TISSUE SPECIMEN FROM SKIN / Unknown 12/23/2019 12/24/2019 11:36 AM CDT us Arminda Boyd DO LAB - PATHOLOGY/CYTOLOGY ORDERABLES Final Result DERMATOPATHOLOGY LABORATORY [facility] - Department of Dermatology [facility] [facility], 5th [place] [address], [facility] [phone] documented in this encounter Visit Diagnoses Not on filedocumented in this encounter Care Teams Oil Program Compliance Specialist Relationship Specialty Start Date End Date Elizabeth Wei MD PCP - General Family Medicine 01/22/19 09/25/23 Shagufta Khan MD [address] [place] [id number] PCP - General Family Medicine 09/26/23 documented as of this encounter
--- NOTE | 2025-03-24 14:14 | P.PNINF_ITS ---
Progress Note: A&P Assessment and Plan (1) Low back pain: Code(s): M54.50 - Low back pain, unspecified Status: Acute (2) Chronic joint pain: Code(s): M25.50 - Pain in unspecified joint; G89.29 - Other chronic pain Status: Acute Plan #L4-L5 OM> ? Source. possible skin source. Presenting with Acute low back pain with generalized bilateral lower extremity weakness. No change in bowel or bladder continence. With possible early disc changes at L4/L5. With previous history of back pain. Could represent acute exacerbation of underlying arthritis but need to rule out the possibility of infectious diskitis. Next I would consider skin organisms most likely source. Without signs of UTI. Does have some pretibial scabs and recent hospitalization. # history of EtOH. # history of neuropathy. Plan: Continue CTX/Vanc for now. Will need at least 6 weeks iv abx follow RPR, fungal w/u. Follow blood cx OK for PICC May need to consider disc biopsy of L4/L5 with IR mainly for diagnosis and possible cultures pending MRI evaluation. Monitor neuro exam closely. Patient was examined with the aid of telemedicine. Patient consented telemedicine. I had performed exam with audio and visual hippa protected platform while in [facility]. Patient is in [facility] in [facility]. Subjective Date/time seen: 03/24/25 14:14 Exam Narrative: examined via telemedicine. Patient consented telemedicine. Alert oriented to person place and time. Able to give me a clear history. Nonlabored breathing. Strength of approximately 2-3 bilaterally with plantar strength bilateral lower extremities. Is able to move his legs off the clear recliner without assistance. He has pretibial scabs bilaterally. Some bruising on the dorsum of his left foot. Otherwise no ascending lymphangitis or cellulitis. No obvious SBE changes. Objective Data Vital Signs Vital Signs: Vital Signs - 24 hr 03/23/25 16:00 03/23/25 20:00 03/23/25 20:00 Temperature 36.5 C 36.8 C Pulse Rate 95 94 Respiratory Rate 18 18 Blood Pressure 125/89 140/89 Pulse Oximetry 96 97 Oxygen Delivery Room Air 03/23/25 23:41 03/24/25 00:00 03/24/25 02:18 Temperature 36.6 C Pulse Rate 89 Respiratory Rate 18 Blood Pressure 134/79 Pulse Oximetry 99 Oxygen Delivery CPAP CPAP 03/24/25 04:00 03/24/25 07:35 03/24/25 08:00 Temperature 36.6 C 36.0 C L Pulse Rate 88 82 Respiratory Rate 18 17 Blood Pressure 138/81 127/76 Pulse Oximetry 99 100 Oxygen Delivery Room Air 03/24/25 08:23 03/24/25 11:48 Temperature 35.8 C L Pulse Rate 88 93 Respiratory Rate 18 Blood Pressure 128/87 Pulse Oximetry 97 Oxygen Delivery Intake/Output Intake/Output: Intake & Output 03/21/25 03/22/25 03/23/25 03/24/25 23:59 23:59 23:59 23:59 Intake Total 2449.2 1720 2200 1420 Output Total 1275 2900 1800 1100 Balance 1174.2 -1180 400 320 Meds/Results Medications: Active Medications Generic Name Dose Route Start Last Admin Trade Name Freq PRN Reason Stop Dose Admin Acetaminophen 650 mg 03/18/25 11:21 03/21/25 20:25 Acetaminophen 325 Mg Tablet PO 650 mg Q4H PRN Administration Mild Pain (1-3) or Fever Acetaminophen 1,000 mg 03/21/25 17:00 03/24/25 12:55 Acetaminophen 500 Mg Tablet PO 1,000 mg TID CHANDAN Administration Apixaban 5 mg 03/18/25 21:00 03/22/25 08:34 Apixaban 5 Mg Tablet PO 5 mg Q12H CHANDAN Administration Clonidine HCl 0.1 mg 03/18/25 21:00 03/24/25 08:22 Clonidine Hcl 0.1 Mg Tablet PO 0.1 mg Q12HR CHANDAN Administration Dextrose 12.5 gm 03/18/25 20:09 Dextrose 50% 25 Gm/50 Ml Syringe IV PUSH PRN PRN Hypoglycemia Protocol Docusate Sodium 100 mg 03/18/25 17:00 03/24/25 08:23 Docusate Sodium 100 Mg Capsule PO 100 mg BID CHANDAN Administration Empagliflozin 10 mg 03/19/25 09:00 03/24/25 08:23 Empagliflozin 10 Mg Tablet PO 10 mg DAILY CHANDAN Administration Finasteride 5 mg 03/19/25 09:00 03/24/25 08:22 Finasteride 5 Mg Tablet PO 5 mg DAILY CHANDAN Administration Folic Acid 1 mg 03/19/25 09:00 03/24/25 08:22 Folic Acid 1 Mg Tablet PO 1 mg DAILY CHANDAN Administration Gabapentin 300 mg 03/21/25 21:00 03/23/25 20:46 Gabapentin 300 Mg Capsule PO 300 mg QHS CHANDAN Administration Glimepiride 4 mg 03/19/25 09:00 Glimepiride 2 Mg Tablet PO DAILY CHANDAN Glucagon 1 mg 03/18/25 20:09 Glucagon For Inj 1 Mg Vial IM PRN PRN Hypoglycemia Protocol Glucose 15 gm 03/18/25 20:09 Glucose Oral Gel 15 Gm Of Glucse In 37.5 Gm Tube PO PRN PRN Hypoglycemia Protocol Sodium Chloride 1,000 mls @ 75 mls/hr 03/18/25 11:25 03/24/25 06:08 Normal Saline Iv IV CONT 75 mls/hr .[id number] CHANDAN Administration Dextrose 1,000 mls @ 100 mls/hr 03/18/25 20:09 Dextrose 5% 1,000 Ml IVPB PRN PRN Hypoglycemia Protocol Ceftriaxone Sodium 2 gm/ 100 mls @ 200 mls/hr 03/23/25 14:40 03/23/25 15:28 Sodium Chloride IVPB 05/04/25 14:39 200 mls/hr Q24H CHANDAN Administration Vancomycin HCl 1,500 mg in 500 mls @ 250 mls/hr 03/24/25 10:00 03/24/25 09:02 Vancomycin 1,500 Mg/Ns 500 Ml IVPB 250 mls/hr Q18H CHANDAN Administration Insulin Aspart 2 - 5 units 03/19/25 08:00 03/24/25 11:56 Insulin Aspart (*Bkc) 100 Units/Ml SUB-Q Not Given TIDWM [facility] Protocol Insulin Aspart 1 - 2 units 03/18/25 21:00 03/23/25 20:47 Insulin Aspart (*Bkc) 100 Units/Ml SUB-Q Not Given HS [facility] Protocol Lorazepam 2 mg 03/19/25 03:00 Lorazepam (*Crx) 1 Mg Tablet PO Q4HR PRN CIWA >15 Methocarbamol 500 mg 03/21/25 11:19 03/22/25 20:12 Methocarbamol 500 Mg Tablet PO 500 mg BID PRN Administration Muscle Spasm Metoprolol Succinate 100 mg 03/19/25 09:00 03/24/25 08:23 Metoprolol Succinate Ext Rel 100 Mg Tabcr PO 100 mg DAILY CHANDAN Administration Morphine Sulfate 2 mg 03/18/25 11:21 Morphine Sulfate (*Crx) 2 Mg/Ml Inj IV PUSH Q2H PRN Pain Rated 7-10 Multivitamins/Calcium 1 tablet 03/19/25 09:00 03/24/25 08:22 Therapeutic Multivitamins/Minerals Tab (*Bkc) PO 1 tablet DAILY CHANDAN Administration Ondansetron HCl 4 mg 03/18/25 11:21 Ondansetron Inj 4 Mg/2 Ml Vial IV PUSH Q4H PRN Nausea Oxycodone HCl 2.5 mg 03/21/25 14:19 Oxycodone Hcl (*Crx) 2.5 Mg Tab Ir PO Q4H PRN Pain Rated 4-6 Oxycodone HCl 5 mg 03/21/25 14:19 03/24/25 11:19 Oxycodone Hcl (*Crx) 5 Mg Tab Ir PO 5 mg Q4H PRN Administration Pain Rated 7-10 Polyethylene Glycol 17 gm 03/19/25 09:00 03/24/25 08:22 Polyethylene Glycol 3350 17 Gm Powd.Pack PO 17 gm DAILY CHANDAN Administration Pravastatin Sodium 20 mg 03/18/25 21:00 03/23/25 20:46 Pravastatin Sodium 20 Mg Tablet PO 20 mg HS CHANDAN Administration Sacubitril/Valsartan 1 tab 03/18/25 23:00 03/24/25 08:22 Sacubitril/Valsartan 24-26 Mg Tablet PO 1 tab Q12HR CHANDAN Administration Senna/Docusate Sodium 1 tab 03/18/25 22:50 Senna/Docusate Sodium Tablet PO HS PRN Constipation Sitagliptin Phosphate 100 mg 03/19/25 09:00 Sitagliptin Phosphate 100 Mg Tablet PO DAILY CAHNDAN Sodium Bicarbonate 650 mg 03/18/25 19:15 03/24/25 12:55 Sodium Bicarbonate Tab 650 Mg Tablet PO 650 mg TID CHANDAN Administration Thiamine HCl 100 mg 03/19/25 09:00 03/24/25 08:22 Thiamine Hcl 100 Mg Tablet PO 100 mg DAILY CHANDAN Administration Radiology Results: ITS Impressions Chest X-Ray 03/18/25 08:32 IMPRESSION: 1. Unchanged elevation of the right hemidiaphragm. No acute cardiopulmonary disease. Lumbar Spine X-Ray 03/18/25 09:35 Impression: 1: Severe lumbar spondylosis with levoscoliosis. Thoracic/Lumbar Spine CT 03/20/25 10:16 IMPRESSION: 1. Moderate to severe thoracic and lumbar spondylosis. No acute osseous adenopathy. Thoracic Spine MRI 03/21/25 13:50 IMPRESSION: 1. Moderate thoracic spondylosis. Lumbar Spine MRI 03/24/25 08:32 IMPRESSION: 1. Constellation of findings which remain concerning for L4-L5 discitis and associated osteomyelitis at both levels. No evident epidural abscess. 2. Abnormal configuration of the nerve roots in the cauda equina which extend as single thick oblique band at the right posterior aspect of the thecal sac consistent with arachnoiditis but without abnormal signal or enhancement of the nerve roots. 3. Lumbar spondylosis, moderate to severe at L5-S1 and mild in the more cephalad lumbar spine. See prior report for level by level analysis. Labs Labs: Laboratory Results - last 24 hr 03/23/25 03/23/25 03/24/25 16:43 20:36 05:57 WBC 4.6 RBC 3.99 L Hgb 12.6 L Hct 40.4 L MCV 101.3 H MCH 31.6 MCHC 31.2 L RDW 14.3 Plt Count 165 MPV 10.3 Immature Gran % (Auto) 0.4 Neut % (Auto) 68.9 Lymph % (Auto) 12.6 L [place] % (Auto) 12.6 H Eos % (Auto) 4.6 H Baso % (Auto) 0.9 Lymph # (Auto) 0.58 L [place] # (Auto) 0.6 Eos # (Auto) 0.2 Baso # (Auto) 0.0 Abs Immat Gran (auto) 0.02 Absolute Neuts (auto) 3.2 Absolute Nucleated RBC 0.000 Nucleated RBC % 0.0 Sodium 136 L Potassium 4.0 Chloride 106 Carbon Dioxide 25 Anion Gap 5 BUN 24 H Creatinine 1.27 Estim Creat Clear Calc 65 Estimated GFR 55 L Glucose 121 H POC Capillary Glucose 181 H 163 H Calcium 8.6 Syphilis IgG/IgM Ab Blastomyces Antibody Hyacinth Antibody Coccidioides Ab Histoplasma H Band Ab Histoplasma M Band Ab HIV 1&2 Ab/P24 Ag 4thGn Aspergillus flavus Ab Aspergill fumigatus Ab Aspergillus niger Ab 03/24/25 03/24/25 03/24/25 07:37 08:15 11:52 WBC RBC Hgb Hct MCV MCH MCHC RDW Plt Count MPV Immature Gran % (Auto) Neut % (Auto) Lymph % (Auto) [place] % (Auto) Eos % (Auto) Baso % (Auto) Lymph # (Auto) [place] # (Auto) Eos # (Auto) Baso # (Auto) Abs Immat Gran (auto) Absolute Neuts (auto) Absolute Nucleated RBC Nucleated RBC % Sodium Potassium Chloride Carbon Dioxide Anion Gap BUN Creatinine Estim Creat Clear Calc Estimated GFR Glucose POC Capillary Glucose 132 H 138 H Calcium Syphilis IgG/IgM Ab Non-reactive Blastomyces Antibody Cancelled Hyacinth Antibody Cancelled Coccidioides Ab Cancelled Histoplasma H Band Ab Cancelled Histoplasma M Band Ab Cancelled HIV 1&2 Ab/P24 Ag 4thGn Negative Aspergillus flavus Ab Cancelled Aspergill fumigatus Ab Cancelled Aspergillus niger Ab Cancelled
[2025-03-24] MEDS: cefTRIAXone 2 GM in SODIUM CHLORIDE 0.9% IV 100 ML 200 ML IVPB (14:44)
[2025-03-24] MEDS: LIDOCAINE 1% PF INJ 5 ML VIAL INFILTRATE (15:52)
[2025-03-24] MEDS: oxyCODONE HCL (*CRX) 2.5 MG TAB IR PO (21:29)
[2025-03-24] MEDS: PRAVASTATIN SODIUM 20 MG TABLET PO (21:29)
[2025-03-24] MEDS: GABAPENTIN 300 MG CAPSULE PO (21:30)
[2025-03-24] MEDS: CENTRAL LINE FLUSH 10 ML IV PUSH (21:31)
[2025-03-24] MEDS: WATER FOR IRRIGATION, STERILE 500 ML BOTTLE (21:39)
[2025-03-25 03:41] LABS: Hematocrit 37.3 % (42.0-52.0); Hemoglobin 11.7 g/dL (14.0-18.0); Immature Granulocyte Percent A 0.6 % (0-0.5); Lymphocytes Absolute Auto 0.57 K/mm3 (0.9-3.2); Mean Corpuscular HGB Conc 31.4 g/dl (32-36); Mean Corpuscular Hemoglobin 31.9 pg (26-34); Mean Corpuscular Volume 101.6 fl (80-100); Nucleated Red Blood Cells Absolute Auto 0.000 K/mm3 (0.0-0.012); Nucleated Red Blood Cells Perc 0.0 % (0.0-0.2); Platelet Count Result 164 k/mm3 (150-375); Red Blood Count 3.67 M/mm3 (4.6-6.20); White Blood Count 5.4 K/mm3 (4.5-10.0)
[2025-03-25 04:02] LABS: Anion Gap 7 mmol/L (4-12); Blood Urea Nitrogen 21 mg/dL (9-20); Calcium 8.5 mg/dL (8.4-10.2); Carbon Dioxide 24 mmol/L (22-30); Chloride 105 mmol/L (98-107); Estimated CRCL calculation 71 ml/min; Estimated Glomerular Filt Rate > 60; Glucose 125 mg/dL (65-110); Potassium 4.0 mmol/L (3.4-5.0); Sodium 136 mmol/L (137-145)
[2025-03-25 05:31] VITALS: BP 135/97; PULSE 87; RESP 18; O2SAT 98
[2025-03-25] MEDS: VANCOMYCIN 2,000 MG/NS 500 ML 2,000 MG/500 ML BAG 250 MG IVPB (05:48)
[2025-03-25] MEDS: CENTRAL LINE FLUSH 10 ML IV PUSH ×2 (05:49→14:56)
--- NOTE | 2025-03-25 07:37 | P.PNIM_ITS ---
Progress Note: A&P Assessment and Plan (1) Low back pain: Code(s): M54.50 - Low back pain, unspecified Status: Acute Assessment and Plan: * Reports that he was driving on Sunday. Woke up on Sunday and unable to lift legs easily due to pain. Has decreased sensation bilaterally chronically but feels less sensation to feet today. More difficulty voiding this morning but bladder scan still <300. Having Low back pain with intermittent spasms. * 03/18 L spine xray showed Severe lumbar spondylosis with levoscoliosis * 03/20 CT T & L spine without contrast showed moderate to severe thoracic and lumbar spondylosis. No acute osseous adenopathy. * MRI T/L spine without contrast pending * Added methocarbamol 500 BID for back spasms 03/19, may be helping but very sleepy so changed to PRN * Gabapentin 300<400mg hs, resumed 300mg for oversedation * DC'd Vicodin. Scheduled tylenol TID, oxycodone 2.5-5mg prn * Neurosurgery consulted, appreciate recommendations * Repeat MRI L spine with and without contrast now that NICOLE resolved * CT bone biopsy for diskitis/osteomyelitis. Hold apixaban, last dose AM 03/22 8:34am. Could be 03/24 or 03/25 pending results of MRI with and without contrast. Discussion with radiology * Infectious disease consulted * Will follow-up on the MRI results and IR guided biopsy tomorrow * Recommend continue IV antibiotics until we have results * Initiated ceftriaxone 2 g Q 24 hours and vancomycin q.18 hours * Lumbar Spine MRI on 03/25 * 1. Constellation of findings which remain concerning for L4-L5 discitis and associated osteomyelitis at both levels. No evident epidural abscess. * Abnormal configuration of the nerve roots in the cauda equina which extend as single thick oblique band at the right posterior aspect of the thecal sac consistent with arachnoiditis but without abnormal signal or enhancement of the nerve roots. * Lumbar spondylosis, moderate to severe at L5-S1 and mild in the more cephalad lumbar spine. See prior report for level by level analysis * 03/25: Discussed with Dr. Grover of Neurosurgery - recommends CT guided biopsy of L4-L5, hold antibiotics until biopsy is complete * Will discuss with ID regarding continuation of abx coverage once Bx is completed * CT guided bone biopsy pending (2) Fall: Code(s): W19.XXXA - Unspecified fall, initial encounter Status: Acute Assessment and Plan: * PT OT evaluate and treat * Up with assistance * Fall precautions * Patient had a fall with subdural and was discharged from rehab on 03/07/2025 it appears that patient had finished his Keppra for subdural, and had restarted Eliquis--holding for biopsy (3) NICOLE (acute kidney injury): Code(s): N17.9 - Acute kidney failure, unspecified Status: Acute Assessment and Plan: * Creatinine 2.47, down to 1.79>1.35 with fluids * NS@125/hr>75/hr * Follow BMP * 03/25: Cr 1.16 (4) ETOH abuse: Code(s): F10.10 - Alcohol abuse, uncomplicated Status: Acute Assessment and Plan: * [facility] protocol * Monitor for withdrawals (5) Primary hypertension: Code(s): I10 - Essential (primary) hypertension Status: Acute Assessment and Plan: * Hold antihypertensives while doing fall workup (6) Chronic diastolic CHF (congestive heart failure): Code(s): I50.32 - Chronic diastolic (congestive) heart failure Status: Acute Assessment and Plan: * Patient does not appear to be on diuretics (7) Coronary artery disease: Qualifiers: Associated angina: without angina Coronary Disease-Associated Artery/Lesion type: [place] artery [place] vs. transplanted heart: [place] heart Qualified Code(s): I25.10 - Atherosclerotic heart disease of [place] coronary artery without angina pectoris Code(s): I25.10 - Atherosclerotic heart disease of [place] coronary artery without angina pectoris Status: Acute Assessment and Plan: * Continued Entresto and Jardiance metoprolol, statin * Holding Eliquis (8) Atrial fibrillation: Code(s): I48.91 - Unspecified atrial fibrillation Status: Acute Assessment and Plan: * Continue metoprolol * Hold eliquis for possible CT guided bone biopsy (9) Type 2 diabetes mellitus with diabetic neuropathy: Qualifiers: Diabetes mellitus detention insulin use: 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 03/25/2025 Patient sitting comfortably at bedside during examination. Lumbar spine MRI showed L4-L5 discitis and associated osteomyelitis - discussed with Dr. Grover of Neurosurgery who recommended ordering CT guided bone biopsy of L4-L5 space and to hold antibiotics until biopsy can be completed. Will discuss with ID once biopsy is complete for recommendations of antibiotic coverage once biopsy is complete. Pt is otherwise feeling okay today, no complaints or concerns at time of exam. Remains afebrile with no leukocytosis. Biopsy ordered and pending at this time. Review of Systems Review of Systems: 12 systems were reviewed and are negativ e except for as per HPI. Exam Narrative: General - Awake and alert. No acute distress Eyes - PERRLA, EOM intact ENT - No thrush, No erythema Neck - No noticeable or palpable swelling Lymph Nodes - No lymphadenopathy Cardiovascular - RRR no m/r/g, no JVD Lungs: Clear to auscultation, No wheezing, use of accessory muscles, no crackles or wheezes. Skin - Skin warm and dry, no wounds or rashes Abdomen - Normal bowel sounds, abdomen soft and nontender Extremities - No edema, cyanosis or clubbing Musculoskeletal - 5/5 strength, normal range of motion, no swollen or erythematous joints. Neurological ? Alert and oriented x 3, Decreased sensation LE (reports chronic but slightly more decreased), Left leg weaker than right, minimal resistance sitting in chair, knee extension 3/5 & 4/5, plantar flexion slightly improved, 4/5. Psych: Normal mood and affect Objective Data Vital Signs Vital Signs: Vital Signs - 24 hr 03/24/25 08:00 03/24/25 08:23 03/24/25 11:48 Temperature 96.5 F L Pulse Rate 88 93 Respiratory Rate 18 Blood Pressure 128/87 Pulse Oximetry 97 Oxygen Delivery Room Air 03/24/25 16:45 03/24/25 20:00 03/24/25 21:33 Temperature 97.1 F L 98.1 F Pulse Rate 69 67 Respiratory Rate 18 16 Blood Pressure 125/90 136/86 Pulse Oximetry 98 100 Oxygen Delivery CPAP 03/24/25 22:00 03/25/25 05:31 Temperature Pulse Rate 87 Respiratory Rate 18 Blood Pressure 135/97 H Pulse Oximetry 98 Oxygen Delivery BiPAP Intake/Output Intake/Output: Intake & Output 03/22/25 03/23/25 03/24/25 03/25/25 23:59 23:59 23:59 23:59 Intake Total 1720 2300 3450 550 Output Total 2900 1800 2000 325 Balance -5863 383 7158 225 Meds/Results Medications: Active Medications Generic Name Dose Route Start Last Admin Trade Name Freq PRN Reason Stop Dose Admin Acetaminophen 650 mg 03/18/25 11:21 03/21/25 20:25 Acetaminophen 325 Mg Tablet PO 650 mg Q4H PRN Administration Mild Pain (1-3) or Fever Acetaminophen 1,000 mg 03/21/25 17:00 03/24/25 16:38 Acetaminophen 500 Mg Tablet PO 1,000 mg TID CHANDAN Administration Apixaban 5 mg 03/18/25 21:00 03/22/25 08:34 Apixaban 5 Mg Tablet PO 5 mg Q12H CHANDAN Administration Clonidine HCl 0.1 mg 03/18/25 21:00 03/24/25 21:30 Clonidine Hcl 0.1 Mg Tablet PO 0.1 mg Q12HR CHANDAN Administration Dextrose 12.5 gm 03/18/25 20:09 Dextrose 50% 25 Gm/50 Ml Syringe IV PUSH PRN PRN Hypoglycemia Protocol Docusate Sodium 100 mg 03/18/25 17:00 03/24/25 16:38 Docusate Sodium 100 Mg Capsule PO 100 mg BID CHANDAN Administration Empagliflozin 10 mg 03/19/25 09:00 03/24/25 08:23 Empagliflozin 10 Mg Tablet PO 10 mg DAILY CHANDAN Administration Finasteride 5 mg 03/19/25 09:00 03/24/25 08:22 Finasteride 5 Mg Tablet PO 5 mg DAILY CHANDAN Administration Folic Acid 1 mg 03/19/25 09:00 03/24/25 08:22 Folic Acid 1 Mg Tablet PO 1 mg DAILY CHANDAN Administration Gabapentin 300 mg 03/21/25 21:00 03/24/25 21:30 Gabapentin 300 Mg Capsule PO 300 mg QHS CHANDAN Administration Glimepiride 4 mg 03/19/25 09:00 Glimepiride 2 Mg Tablet PO DAILY CHANDAN Glucagon 1 mg 03/18/25 20:09 Glucagon For Inj 1 Mg Vial IM PRN PRN Hypoglycemia Protocol Glucose 15 gm 03/18/25 20:09 Glucose Oral Gel 15 Gm Of Glucse In 37.5 Gm Tube PO PRN PRN Hypoglycemia Protocol Sodium Chloride 1,000 mls @ 75 mls/hr 03/18/25 11:25 03/24/25 21:33 Normal Saline Iv IV CONT 75 mls/hr .[id number] CHANDAN Administration Dextrose 1,000 mls @ 100 mls/hr 03/18/25 20:09 Dextrose 5% 1,000 Ml IVPB PRN PRN Hypoglycemia Protocol Ceftriaxone Sodium 2 gm/ 100 mls @ 200 mls/hr 03/23/25 14:40 03/24/25 14:44 Sodium Chloride IVPB 05/04/25 14:39 200 mls/hr Q24H CHANDAN Administration Vancomycin HCl 2,000 mg in 500 mls @ 250 mls/hr 03/25/25 05:00 03/25/25 05:48 Vancomycin 2,000 Mg/Ns 500 Ml IVPB 250 mls/hr Q18H CHANDAN Administration Insulin Aspart 2 - 5 units 03/19/25 08:00 03/24/25 17:03 Insulin Aspart (*Bkc) 100 Units/Ml SUB-Q Not Given TIDWM [facility] Protocol Insulin Aspart 1 - 2 units 03/18/25 21:00 03/24/25 21:36 Insulin Aspart (*Bkc) 100 Units/Ml SUB-Q Not Given HS [facility] Protocol Lorazepam 2 mg 03/19/25 03:00 Lorazepam (*Crx) 1 Mg Tablet PO Q4HR PRN CIWA >15 Methocarbamol 500 mg 03/21/25 11:19 03/22/25 20:12 Methocarbamol 500 Mg Tablet PO 500 mg BID PRN Administration Muscle Spasm Metoprolol Succinate 100 mg 03/19/25 09:00 03/24/25 08:23 Metoprolol Succinate Ext Rel 100 Mg Tabcr PO 100 mg DAILY CHANDAN Administration Morphine Sulfate 2 mg 03/18/25 11:21 Morphine Sulfate (*Crx) 2 Mg/Ml Inj IV PUSH Q2H PRN Pain Rated 7-10 Multivitamins/Calcium 1 tablet 03/19/25 09:00 03/24/25 08:22 Therapeutic Multivitamins/Minerals Tab (*Bkc) PO 1 tablet DAILY CHANDAN Administration Ondansetron HCl 4 mg 03/18/25 11:21 Ondansetron Inj 4 Mg/2 Ml Vial IV PUSH Q4H PRN Nausea Oxycodone HCl 2.5 mg 03/21/25 14:19 03/24/25 21:29 Oxycodone Hcl (*Crx) 2.5 Mg Tab Ir PO 2.5 mg Q4H PRN Administration Pain Rated 4-6 Oxycodone HCl 5 mg 03/21/25 14:19 03/24/25 11:19 Oxycodone Hcl (*Crx) 5 Mg Tab Ir PO 5 mg Q4H PRN Administration Pain Rated 7-10 Polyethylene Glycol 17 gm 03/19/25 09:00 03/24/25 08:22 Polyethylene Glycol 3350 17 Gm Powd.Pack PO 17 gm DAILY CHANDAN Administration Pravastatin Sodium 20 mg 03/18/25 21:00 03/24/25 21:29 Pravastatin Sodium 20 Mg Tablet PO 20 mg HS CHANDAN Administration Sacubitril/Valsartan 1 tab 03/18/25 23:00 03/24/25 21:30 Sacubitril/Valsartan 24-26 Mg Tablet PO 1 tab Q12HR CHANDAN Administration Senna/Docusate Sodium 1 tab 03/18/25 22:50 Senna/Docusate Sodium Tablet PO HS PRN Constipation Sitagliptin Phosphate 100 mg 03/19/25 09:00 Sitagliptin Phosphate 100 Mg Tablet PO DAILY CHANDAN Sodium Bicarbonate 650 mg 03/18/25 19:15 03/24/25 16:39 Sodium Bicarbonate Tab 650 Mg Tablet PO 650 mg TID CHANDAN Administration Sodium Chloride 10 ml 03/24/25 22:00 03/25/25 05:49 Central Line Flush IV PUSH 10 ml Q8HR CHANDAN Administration Sodium Chloride 10 ml 03/24/25 15:51 Central Line Flush IV PUSH PRN PRN with TPN bag changes Sodium Chloride 20 ml 03/24/25 15:51 Central Line Flush IV PUSH PRN PRN after blood draws Thiamine HCl 100 mg 03/19/25 09:00 03/24/25 08:22 Thiamine Hcl 100 Mg Tablet PO 100 mg DAILY CHANDAN Administration Radiology Results: ITS Impressions Lumbar Spine X-Ray 03/18/25 09:35 Impression: 1: Severe lumbar spondylosis with levoscoliosis. Thoracic/Lumbar Spine CT 03/20/25 10:16 IMPRESSION: 1. Moderate to severe thoracic and lumbar spondylosis. No acute osseous adenopathy. Thoracic Spine MRI 03/21/25 13:50 IMPRESSION: 1. Moderate thoracic spondylosis. Lumbar Spine MRI 03/24/25 08:32 IMPRESSION: 1. Constellation of findings which remain concerning for L4-L5 discitis and associated osteomyelitis at both levels. No evident epidural abscess. 2. Abnormal configuration of the nerve roots in the cauda equina which extend as single thick oblique band at the right posterior aspect of the thecal sac consistent with arachnoiditis but without abnormal signal or enhancement of the nerve roots. 3. Lumbar spondylosis, moderate to severe at L5-S1 and mild in the more cephalad lumbar spine. See prior report for level by level analysis. Chest X-Ray 03/24/25 15:40 IMPRESSION: 1. Right PICC line tip at the superior cavoatrial junction. 2. Mild interstitial pattern in the bilateral lower lung zones which could represent mild pulmonary edema, atelectasis or pneumonia. 3. Chronic elevation the right hemidiaphragm. Labs Labs: Laboratory Results - last 24 hr 03/24/25 03/24/25 03/24/25 07:37 08:15 11:52 WBC RBC Hgb Hct MCV MCH MCHC RDW Plt Count MPV Immature Gran % (Auto) Neut % (Auto) Lymph % (Auto) [place] % (Auto) Eos % (Auto) Baso % (Auto) Lymph # (Auto) [place] # (Auto) Eos # (Auto) Baso # (Auto) Abs Immat Gran (auto) Absolute Neuts (auto) Absolute Nucleated RBC Nucleated RBC % Sodium Potassium Chloride Carbon Dioxide Anion Gap BUN Creatinine Estim Creat Clear Calc Estimated GFR Glucose POC Capillary Glucose 132 H 138 H Calcium Vancomycin Trough Syphilis IgG/IgM Ab Non-reactive Blastomyces Antibody Cancelled Hyacinth Antibody Cancelled Coccidioides Ab Cancelled Histoplasma H Band Ab Cancelled Histoplasma M Band Ab Cancelled HIV 1&2 Ab/P24 Ag 4thGn Negative Aspergillus flavus Ab Cancelled Aspergill fumigatus Ab Cancelled Aspergillus niger Ab Cancelled 03/24/25 03/24/25 03/25/25 16:49 21:36 03:34 WBC 5.4 RBC 3.67 L Hgb 11.7 L Hct 37.3 L MCV 101.6 H MCH 31.9 MCHC 31.4 L RDW 14.3 Plt Count 164 MPV 10.3 Immature Gran % (Auto) 0.6 H Neut % (Auto) 74.1 H Lymph % (Auto) 10.5 L [place] % (Auto) 10.3 H Eos % (Auto) 3.9 Baso % (Auto) 0.6 Lymph # (Auto) 0.57 L [place] # (Auto) 0.6 Eos # (Auto) 0.2 Baso # (Auto) 0.0 Abs Immat Gran (auto) 0.03 Absolute Neuts (auto) 4.0 Absolute Nucleated RBC 0.000 Nucleated RBC % 0.0 Sodium 136 L Potassium 4.0 Chloride 105 Carbon Dioxide 24 Anion Gap 7 BUN 21 H Creatinine 1.16 Estim Creat Clear Calc 71 Estimated GFR > 60 Glucose 125 H POC Capillary Glucose 146 H 174 H Calcium 8.5 Vancomycin Trough 12.8 Syphilis IgG/IgM Ab Blastomyces Antibody Hyacinth Antibody Coccidioides Ab Histoplasma H Band Ab Histoplasma M Band Ab HIV 1&2 Ab/P24 Ag 4thGn Aspergillus flavus Ab Aspergill fumigatus Ab Aspergillus niger Ab Quality VTE Prophylaxis VTE prophylaxis: mechanical ordered and pharmacologic ordered
[2025-03-25 08:44] VITALS: PULSE 100
[2025-03-25] MEDS: FINASTERIDE 5 MG TABLET PO (08:44)
[2025-03-25] MEDS: THIAMINE HCL 100 MG TABLET PO (08:44)
[2025-03-25] MEDS: ACETAMINOPHEN 500 MG TABLET 1000 MG PO ×3 (08:44→17:57)
[2025-03-25] MEDS: METOPROLOL SUCCINATE EXT REL 100 MG TABCR PO (08:44)
[2025-03-25] MEDS: SODIUM BICARBONATE TAB 650 MG TABLET PO ×3 (08:44→17:57)
[2025-03-25] MEDS: DOCUSATE SODIUM 100 MG CAPSULE PO ×2 (08:44→17:57)
[2025-03-25] MEDS: SACUBITRIL/VALSARTAN 24-26 MG TABLET 1 TAB PO ×2 (08:44→20:38)
[2025-03-25] MEDS: EMPAGLIFLOZIN 10 MG TABLET PO (08:46)
[2025-03-25] MEDS: THERAPEUTIC MULTIVITAMINS/MINERALS TAB (*BKC) 1 TABLET PO (08:46)
[2025-03-25] MEDS: FOLIC ACID 1 MG TABLET PO (08:46)
--- NOTE | 2025-03-25 10:24 | PCNWS ---
Weekly nutritional screen. Patient is tolerating current Diabetic, heart healthy diet with adequate intake, 100% meals. No weight loss reported. No nutritional needs at this time.
[2025-03-25 14:00] VITALS: BP 110/85; PULSE 81; RESP 18; TEMP 36.4; O2SAT 97
[2025-03-25] MEDS: SODIUM CHLORIDE 0.9% IV 1,000 ML 75 ML IV CONT (14:54)
--- NOTE | 2025-03-25 17:09 | P.TS_ITS ---
Transfer Discharge Sum: Prov Provider Date of admission: 03/20/25 09:18 Primary care physician: Shagufta Khan MD Admitting clinician: Jagruti Cleveland MD Consults: 03/18/25 22:50 Care Coordination Consult Routine Reason for Consult:: Abuse 03/20/25 Consult to Physician Routine Comment: spoke to @1220 ([facility]) Consulting Provider: Himanshu Grover location man/MD group to consult: Neurosurgery Reason for consultation: LE weakness, moderate to severe thoracic and lumbar spondylosis Has provider been notified: Yes Consult to Physician Routine Comment: Consulting Provider: Himanshu Grover Reason for consultation: lower back pain Has provider been notified: Yes 03/22/25 Consult to Physician Routine Comment: Spoke to Dr Reyes @ 09:57am ([facility]) Consulting Provider: Micheal Reyes location man/MD group to consult: Infectious Disease Reason for consultation: Diskitis/Osteomyelitis Has provider been notified: Yes 03/23/25 09:54 Consult Infectious Disease Pharmacist Routine Comment: Initiate coordination of ID Physician consult. Receiving physician/facility: [facility] DS: Admitting Diagnosis Discharge Date 03/25/2025 Admitting Diagnosis Diskitis/osteomyelitis DS: Discharge Diagnosis Discharge Diagnosis (1) Low back pain: Code(s): M54.50 - Low back pain, unspecified Status: Acute Assessment and Plan: * Reports that he was driving on Sunday. Woke up on Sunday and unable to lift legs easily due to pain. Has decreased sensation bilaterally chronically but feels less sensation to feet today. More difficulty voiding this morning but bladder scan still <300. Having Low back pain with intermittent spasms. * 03/18 L spine xray showed Severe lumbar spondylosis with levoscoliosis * 03/20 CT T & L spine without contrast showed moderate to severe thoracic and lumbar spondylosis. No acute osseous adenopathy. * MRI T/L spine without contrast pending * Added methocarbamol 500 BID for back spasms 03/19, may be helping but very sleepy so changed to PRN * Gabapentin 300<400mg hs, resumed 300mg for oversedation * DC'd Vicodin. Scheduled tylenol TID, oxycodone 2.5-5mg prn * Neurosurgery consulted, appreciate recommendations * Repeat MRI L spine with and without contrast now that NICOLE resolved * CT bone biopsy for diskitis/osteomyelitis. Hold apixaban, last dose AM 03/22 8:34am. Could be 03/24 or 03/25 pending results of MRI with and without contr ast. Discussion with radiology * Infectious disease consulted * Will follow-up on the MRI results and IR guided biopsy tomorrow * Recommend continue IV antibiotics until we have results * Initiated ceftriaxone 2 g Q 24 hours and vancomycin q.18 hours * Lumbar Spine MRI on 03/25 * 1. Constellation of findings which remain concerning for L4-L5 discitis and associated osteomyelitis at both levels. No evident epidural abscess. * Abnormal configuration of the nerve roots in the cauda equina which extend as single thick oblique band at the right posterior aspect of the thecal sac consistent with arachnoiditis but without abnormal signal or enhancement of the nerve roots. * Lumbar spondylosis, moderate to severe at L5-S1 and mild in the more cephalad lumbar spine. See prior report for level by level analysis * 03/25: Discussed with Dr. Grover of Neurosurgery - recommends CT guided biopsy of L4-L5, hold antibiotics until biopsy is complete * Will discuss with ID regarding continuation of abx coverage once Bx is completed * CT guided bone biopsy pending (2) Fall: Code(s): W19.XXXA - Unspecified fall, initial encounter Status: Acute Assessment and Plan: * PT OT evaluate and treat * Up with assistance * Fall precautions * Patient had a fall with subdural and was discharged from rehab on 03/07/2025 it appears that patient had finished his Keppra for subdural, and had restarted Eliquis--holding for biopsy (3) NICOLE (acute kidney injury): Code(s): N17.9 - Acute kidney failure, unspecified Status: Acute Assessment and Plan: * Creatinine 2.47, down to 1.79>1.35 with fluids * NS@125/hr>75/hr * Follow BMP * 03/25: Cr 1.16 (4) ETOH abuse: Code(s): F10.10 - Alcohol abuse, uncomplicated Status: Acute Assessment and Plan: * [facility] protocol * Monitor for withdrawals (5) Primary hypertension: Code(s): I10 - Essential (primary) hypertension Status: Acute Assessment and Plan: * Hold antihypertensives while doing fall workup (6) Chronic diastolic CHF (congestive heart failure): Code(s): I50.32 - Chronic diastolic (congestive) heart failure Status: Acute Assessment and Plan: * Patient does not appear to be on diuretics (7) Coronary artery disease: Qualifiers: Associated angina: without angina Coronary Disease-Associated Artery/Lesion type: [place] artery [place] vs. transplanted heart: [place] heart Qualified Code(s): I25.10 - Atherosclerotic heart disease of [place] coronary artery without angina pectoris Code(s): I25.10 - Atherosclerotic heart disease of [place] coronary artery without angina pectoris Status: Acute Assessment and Plan: * Continued Entresto and Jardiance metoprolol, statin * Holding Eliquis (8) Atrial fibrillation: Code(s): I48.91 - Unspecified atrial fibrillation Status: Acute Assessment and Plan: * Continue metoprolol * Hold eliquis for possible CT guided bone biopsy (9) Type 2 diabetes mellitus with diabetic neuropathy: Qualifiers: Diabetes mellitus jail insulin use: without intermediate accountant use Qualified Code(s): E11.40 - Type 2 diabetes mellitus with diabetic neuropathy, unspecified Code(s): E11.40 - Type 2 diabetes mellitus with diabetic neuropathy, unspecified Status: Acute Assessment and Plan: * Continue Jardiance * Amaryl and sitagliptin on hold * SSI prn Plan * Recently completed [facility] after subdural hematoma Transfer Discharge Sum: Med Medications Active and Home Medications: Home Medications finasteride 5 mg tablet 5 mg PO DAILY 12/19/19 [History Confirmed 03/18/25] sodium bicarbonate 650 mg tablet 650 mg PO TID 12/19/21 [History Confirmed 03/18/25] chlorthalidone 25 mg tablet 25 mg PO DAILY 01/18/23 [History Confirmed 03/18/25] empagliflozin 10 mg tablet (Jardiance) 10 mg PO DAILY 01/18/23 [History Confirmed 03/18/25] metoprolol succinate 100 mg tablet,extended release 24 hr 100 mg PO DAILY 07/10/23 [History Confirmed 03/18/25] sacubitril 24 mg-valsartan 26 mg tablet (Entresto) 1 tablet PO BID 07/10/23 [History Confirmed 03/18/25] glimepiride 4 mg tablet 4 mg PO DAILY #90 tabs 05/07/24 [Rx Confirmed 03/18/25] hydralazine 100 mg tablet 100 mg PO BID 07/14/24 [History Confirmed 03/18/25] metformin 500 mg tablet,extended release 24 hr 1,000 mg (2 x 500 mg) PO BID #360 tabs 10/20/24 [Rx Confirmed 03/18/25] acetaminophen 325 mg tablet 650 mg PO Q6H 02/25/25 [History Confirmed 03/18/25] amlodipine 5 mg tablet 5 mg PO DAILY 02/25/25 [History Confirmed 03/18/25] clonidine HCl 0.1 mg tablet 0.1 mg PO BID 02/25/25 [History Confirmed 03/18/25] methocarbamol 500 mg tablet 500 mg PO TID PRN muscle spasm 02/25/25 [History Confirmed 03/18/25] miconazole nitrate 2 % topical powder 1 applic topical BID 02/25/25 [History Confirmed 03/18/25] polyethylene glycol 3350 17 gram/dose oral powder 17 g PO DAILY 02/25/25 [History Confirmed 03/18/25] pravastatin 20 mg tablet 20 mg PO HS 02/25/25 [History Confirmed 03/18/25] gabapentin 300 mg capsule 300 mg PO QHS #90 caps 02/27/25 [Rx Confirmed 03/18/25] sitagliptin phosphate 100 mg tablet (Januvia) 100 mg PO DAILY #90 tabs 03/11/25 [Rx Confirmed 03/18/25] apixaban 5 mg tablet (Eliquis) 5 mg PO Q12H 03/18/25 [History Confirmed 03/18/25] levetiracetam 500 mg tablet (Keppra) 500 mg PO BID 03/18/25 [History Confirmed 03/18/25] Active Medications Acetaminophen (Acetaminophen 325 Mg Tablet) 650 mg PO Q4H PRN PRN Reason: Mild Pain (1-3) or Fever Last Admin: 03/21/25 20:25 Dose: 650 mg Acetaminophen (Acetaminophen 500 Mg Tablet) 1,000 mg PO TID CHANDAN Last Admin: 03/25/25 13:13 Dose: 1,000 mg Apixaban (Apixaban 5 Mg Tablet) 5 mg PO Q12H [facility] Last Admin: 03/22/25 08:34 Dose: 5 mg Clonidine HCl (Clonidine Hcl 0.1 Mg Tablet) 0.1 mg PO Q12HR [facility] Last Admin: 03/25/25 08:44 Dose: 0.1 mg Dextrose (Dextrose 50% 25 Gm/50 Ml Syringe) 12.5 gm IV PUSH PRN PRN; Protocol PRN Reason: Hypoglycemia Docusate Sodium (Docusate Sodium 100 Mg Capsule) 100 mg PO BID [facility] Last Admin: 03/25/25 08:44 Dose: 100 mg Empagliflozin (Empagliflozin 10 Mg Tablet) 10 mg PO DAILY [facility] Last Admin: 03/25/25 08:46 Dose: 10 mg Finasteride (Finasteride 5 Mg Tablet) 5 mg PO DAILY [facility] Last Admin: 03/25/25 08:44 Dose: 5 mg Folic Acid (Folic Acid 1 Mg Tablet) 1 mg PO DAILY [facility] Last Admin: 03/25/25 08:46 Dose: 1 mg Gabapentin (Gabapentin 300 Mg Capsule) 300 mg PO QHS [facility] Last Admin: 03/24/25 21:30 Dose: 300 mg Glimepiride (Glimepiride 2 Mg Tablet) 4 mg PO DAILY [facility] Glucagon (Glucagon For Inj 1 Mg Vial) 1 mg IM PRN PRN; Protocol PRN Reason: Hypoglycemia Glucose (Glucose Oral Gel 15 Gm Of Glucse In 37.5 Gm Tube) 15 gm PO PRN PRN; Protocol PRN Reason: Hypoglycemia Sodium Chloride (Normal Saline Iv) 1,000 mls @ 75 mls/hr IV CONT .[id number] [facility] Last Admin: 03/25/25 14:54 Dose: 75 mls/hr Dextrose (Dextrose 5% 1,000 Ml) 1,000 mls @ 100 mls/hr IVPB PRN PRN; Protocol PRN Reason: Hypoglycemia Ceftriaxone Sodium 2 gm/ (Sodium Chloride) 100 mls @ 200 mls/hr IVPB Q24H [facility] Stop: 05/04/25 14:39 Last Admin: 03/24/25 14:44 Dose: 200 mls/hr Vancomycin HCl (Vancomycin 2,000 Mg/Ns 500 Ml) 2,000 mg in 500 mls @ 250 mls/hr IVPB Q18H [facility] Last Infusion: 03/25/25 07:48 Dose: Infused Insulin Aspart (Insulin Aspart (*Bkc) 100 Units/Ml) 2 - 5 units SUB-Q TIDWM [facility]; Protocol Last Admin: 03/25/25 12:00 Dose: Not Given Insulin Aspart (Insulin Aspart (*Bkc) 100 Units/Ml) 1 - 2 units SUB-Q HS [facility]; Protocol Last Admin: 03/24/25 21:36 Dose: Not Given Lorazepam (Lorazepam (*Crx) 1 Mg Tablet) 2 mg PO Q4HR PRN PRN Reason: CIWA >15 Methocarbamol (Methocarbamol 500 Mg Tablet) 500 mg PO BID PRN PRN Reason: Muscle Spasm Last Admin: 03/22/25 20:12 Dose: 500 mg Metoprolol Succinate (Metoprolol Succinate Ext Rel 100 Mg Tabcr) 100 mg PO DAILY [facility] Last Admin: 03/25/25 08:44 Dose: 100 mg Morphine Sulfate (Morphine Sulfate (*Crx) 2 Mg/Ml Inj) 2 mg IV PUSH Q2H PRN PRN Reason: Pain Rated 7-10 Multivitamins/Calcium (Therapeutic Multivitamins/Minerals Tab (*Bkc)) 1 tablet PO DAILY [facility] Last Admin: 03/25/25 08:46 Dose: 1 tablet Ondansetron HCl (Ondansetron Inj 4 Mg/2 Ml Vial) 4 mg IV PUSH Q4H PRN PRN Reason: Nausea Oxycodone HCl (Oxycodone Hcl (*Crx) 2.5 Mg Tab Ir) 2.5 mg PO Q4H PRN PRN Reason: Pain Rated 4-6 Last Admin: 03/24/25 21:29 Dose: 2.5 mg Oxycodone HCl (Oxycodone Hcl (*Crx) 5 Mg Tab Ir) 5 mg PO Q4H PRN PRN Reason: Pain Rated 7-10 Last Admin: 03/24/25 11:19 Dose: 5 mg Polyethylene Glycol (Polyethylene Glycol 3350 17 Gm Powd.Pack) 17 gm PO DAILY [facility] Last Admin: 03/25/25 08:46 Dose: 17 gm Pravastatin Sodium (Pravastatin Sodium 20 Mg Tablet) 20 mg PO HS [facility] Last Admin: 03/24/25 21:29 Dose: 20 mg Sacubitril/Valsartan (Sacubitril/Valsartan 24-26 Mg Tablet) 1 tab PO Q12HR [facility] Last Admin: 03/25/25 08:44 Dose: 1 tab Senna/Docusate Sodium (Senna/Docusate Sodium Tablet) 1 tab PO HS PRN PRN Reason: Constipation Sitagliptin Phosphate (Sitagliptin Phosphate 100 Mg Tablet) 100 mg PO DAILY [facility] Sodium Bicarbonate (Sodium Bicarbonate Tab 650 Mg Tablet) 650 mg PO TID CHANDAN Last Admin: 03/25/25 13:13 Dose: 650 mg Sodium Chloride (Central Line Flush) 10 ml IV PUSH Q8HR CHANDAN Last Admin: 03/25/25 14:56 Dose: 10 ml Sodium Chloride (Central Line Flush) 10 ml IV PUSH PRN PRN PRN Reason: with TPN bag changes Sodium Chloride (Central Line Flush) 20 ml IV PUSH PRN PRN PRN Reason: after blood draws Thiamine HCl (Thiamine Hcl 100 Mg Tablet) 100 mg PO DAILY [facility] Last Admin: 03/25/25 08:44 Dose: 100 mg Transfer Discharge Sum: Hosp Hospital Course Hospital course: Jewel White is a 79 year old male with a past medical history of AFib, diabetes type 2, CAD, hypertension, CHF, and CKD stage 3 who presents the hospital after a fall and was unable to get up. Patient called the fire department for left to help. Patient states that they were able to get him to his bed a substance better overnight. In the morning the patient was unable to bear his own weight so he called it is and mass again to bring him to the hospital. Patient denies any injuries from the fall. Denies hitting his head or lost consciousness. Patient did state that he drinks 4 beers yesterday. The lab work in the ED shows hemoglobin 12.7, chloride of 108, carbon dioxide 16 anion gap of 15, BUN of 36, creatinine of 2.47 with baseline being around 1.57, estimated GFR 25, glucose on arrival 63, urine is dark yellow and cloudy negative for infection. Chest x-ray shows no acute process. Lumbar x-ray shows no acute process. Neurosurgery was consulted recommended obtaining an MRI of the thoracic and lumbar spine to evaluate for any pathology within the spine, although patient be a surgical candidate given multiple medical comorbidities. Thoracic/lumbar spine CT showed moderate to severe thoracic and lumbar spondylosis but no acute osseous adenopathy. Thoracic spine MRI was obtained which showed mild thoracic spondylosis. Lumbar spine MRI obtained which showed prominent increased T2 disc signal and adjacent marrow signal changes at L4 and L5 with significantly greater degree of T1 fat signal loss than expected particularly without evident sclerosis on the prior CT to account for the signal loss and with small endplate erosions and surrounding mild soft tissue edema raising a high level of concern for discitis and osteomyelitis. Dr. Del Toro discussed these findings with Dr. Whitehead the neurosurgeon covering for the patient at 2:30 PM. Moderate to severe lower lumbar predominant spondylosis. Repeat lumbar spine MRI 03/24 showed Constellation of findings which remain concerning for L4-L5 discitis and associated osteomyelitis at both levels. No evident epidural abscess. Abnormal configuration of the nerve roots in the cauda equina which extend as single thick oblique band at the right posterior aspect of the thecal sac consistent with arachnoiditis but without abnormal signal or enhancement of the nerve roots. Lumbar spondylosis, moderate to severe at L5-S1 and mild in the more cephalad lumbar spine. See prior report for level by level analysis. Discussed with Infectious Disease and Neurosurgery. Given neurological changes, recommend starting vancomycin and ceftriaxone. The recommended consideration of disc biopsy of L4/L5 with higher family for diagnosis of possible cultures pending MRI evaluation. Blood cultures have been pending, however radiologist informed us they would not be able to perform a CT-guided bone biopsy of the disc given the technical limitations and would recommend transfer to a tertiary facility that had give abilities for this procedure. Calls were sent off to [facility] and [facility] in order to obtain a CT-guided bone biopsy of the disc due to underlying diskitis of L4/L5 with accompanying osteomyelitis. [facility] and subsequently transferred. Patient Condition: Stable Time Spent with Patient Time attestation: Total time spent providing and/or coordinating transfer services: 54 Exam Narrative: General - Awake and alert. No acute distress Eyes - PERRLA, EOM intact ENT - No thrush, No erythema Neck - No noticeable or palpable swelling Lymph Nodes - No lymphadenopathy Cardiovascular - RRR no m/r/g, no JVD Lungs: Clear to auscultation, No wheezing, use of accessory muscles, no crackles or wheezes. Skin - Skin warm and dry, no wounds or rashes Abdomen - Normal bowel sounds, abdomen soft and nontender Extremities - No edema, cyanosis or clubbing Musculoskeletal - 5/5 strength, normal range of motion, no swollen or erythematous joints. Neurological ? Alert and oriented x 3, Decreased sensation LE (reports chronic but slightly more decreased), Left leg weaker than right, minimal resistance sitting in chair, knee extension 3/5 & 4/5, plantar flexion slightly improved, 4/5. Psych: Normal mood and affect DS: Data Data Completed and Pending Labs on day of discharge: Labs from last 24 hours 03/25/25 03/25/25 03/25/25 16:38 11:43 07:44 WBC RBC Hgb Hct MCV MCH MCHC RDW Plt Count MPV Immature Gran % (Auto) Neut % (Auto) Lymph % (Auto) [place] % (Auto) Eos % (Auto) Baso % (Auto) Lymph # (Auto) [place] # (Auto) Eos # (Auto) Baso # (Auto) Abs Immat Gran (auto) Absolute Neuts (auto) Absolute Nucleated RBC Nucleated RBC % Sodium Potassium Chloride Carbon Dioxide Anion Gap BUN Creatinine Estim Creat Clear Calc Estimated GFR Glucose POC Capillary Glucose 156 H 134 H 135 H Calcium Vancomycin Trough Urine Histoplasma Ag U Histopl Galactoman Ag 03/25/25 03/25/25 03/24/25 04:07 03:34 21:36 WBC 5.4 RBC 3.67 L Hgb 11.7 L Hct 37.3 L MCV 101.6 H MCH 31.9 MCHC 31.4 L RDW 14.3 Plt Count 164 MPV 10.3 Immature Gran % (Auto) 0.6 H Neut % (Auto) 74.1 H Lymph % (Auto) 10.5 L [place] % (Auto) 10.3 H Eos % (Auto) 3.9 Baso % (Auto) 0.6 Lymph # (Auto) 0.57 L [place] # (Auto) 0.6 Eos # (Auto) 0.2 Baso # (Auto) 0.0 Abs Immat Gran (auto) 0.03 Absolute Neuts (auto) 4.0 Absolute Nucleated RBC 0.000 Nucleated RBC % 0.0 Sodium 136 L Potassium 4.0 Chloride 105 Carbon Dioxide 24 Anion Gap 7 BUN 21 H Creatinine 1.16 Estim Creat Clear Calc 71 Estimated GFR > 60 Glucose 125 H POC Capillary Glucose 174 H Calcium 8.5 Vancomycin Trough 12.8 Urine Histoplasma Ag Cancelled U Histopl Galactoman Ag Pending Preliminary micro results at discharge 03/22/25 08:30 Blood Culture - Preliminary Blood 03/22/25 08:16 Blood Culture - Preliminary Blood
--- NOTE | 2025-03-25 19:38 | P.PNCROSS_ITS ---
Event Note Event Note Event Note: I spoke to Dr. Khoury with [facility] service who accepted patient to the Med/Surg Pool as normal priority transfer. Bed assignment will be pending for unknown length of time.
[2025-03-25] MEDS: PRAVASTATIN SODIUM 20 MG TABLET PO (20:38)
[2025-03-25] MEDS: GABAPENTIN 300 MG CAPSULE PO (20:38)
--- NOTE | 2025-03-25 20:55 | P.PNINF_ITS ---
Progress Note: A&P Assessment and Plan (1) Low back pain: Code(s): M54.50 - Low back pain, unspecified Status: Acute (2) Chronic joint pain: Code(s): M25.50 - Pain in unspecified joint; G89.29 - Other chronic pain Status: Acute Plan #L4-L5 OM> ? Source. possible skin source. Presenting with Acute low back pain with generalized bilateral lower extremity weakness. No change in bowel or bladder continence. With possible early disc changes at L4/L5. With previous history of back pain. Could represent acute exacerbation of underlying arthritis but need to rule out the possibility of infectious diskitis. Next I would consider skin organisms most likely source. Without signs of UTI. Does have some pretibial scabs and recent hospitalization. # history of EtOH. # history of neuropathy. Plan: Continue CTX/Vanc for now. Will need at least 6 weeks iv abx EOT would be 05/04. Could consider ctx/dapto outpt setting Neurosurgery planning CT-guided biopsy will this be done at [facility]. The interim, continue IV antibiotics. We can do 16s Ribosomal testing on bx if pursued. Left message with NSurgery d/w Hospitalist elfego. Patient was examined with the aid of telemedicine. Patient consented telemedicine. I had performed exam with audio and visual hippa protected platform while in [facility]. Patient is in [facility] in [facility] [place]. Subjective Date/time seen: 03/25/25 20:55 Interval history: no new fevers or signs of back pain. Did not sleep well overnight. Exam Narrative: examined via telemedicine. Patient consented telemedicine. Alert oriented to person place and time. Able to give me a clear history. Nonlabored breathing. Strength of approximately 2-3 bilaterally with plantar strength bilateral lower extremities. Is able to move his legs off the clear recliner without assistance. He has pretibial scabs bilaterally. Some bruising on the dorsum of his left foot. Otherwise no ascending lymphangitis or cellulitis. No obvious SBE changes. Objective Data Vital Signs Vital Signs: Vital Signs - 24 hr 03/24/25 21:33 03/24/25 22:00 03/25/25 05:31 Temperature 36.7 C Pulse Rate 67 87 Respiratory Rate 16 18 Blood Pressure 136/86 135/97 H Pulse Oximetry 100 98 Oxygen Delivery BiPAP 03/25/25 08:44 03/25/25 14:00 Temperature 36.4 C Pulse Rate 100 81 Respiratory Rate 18 Blood Pressure 110/85 Pulse Oximetry 97 Oxygen Delivery Intake/Output Intake/Output: Intake & Output 03/22/25 03/23/25 03/24/25 03/25/25 23:59 23:59 23:59 23:59 Intake Total 1720 2300 3450 2770 Output Total 2900 1800 2000 1425 Balance -4219 935 3113 1345 Meds/Results Medications: Active Medications Generic Name Dose Route Start Last Admin Trade Name Freq PRN Reason Stop Dose Admin Acetaminophen 650 mg 03/18/25 11:21 03/21/25 20:25 Acetaminophen 325 Mg Tablet PO 650 mg Q4H PRN Administration Mild Pain (1-3) or Fever Acetaminophen 1,000 mg 03/21/25 17:00 03/25/25 17:57 Acetaminophen 500 Mg Tablet PO 1,000 mg TID CHANDAN Administration Apixaban 5 mg 03/18/25 21:00 03/22/25 08:34 Apixaban 5 Mg Tablet PO 5 mg Q12H CHANDAN Administration Clonidine HCl 0.1 mg 03/18/25 21:00 03/25/25 20:38 Clonidine Hcl 0.1 Mg Tablet PO 0.1 mg Q12HR CHANDAN Administration Dextrose 12.5 gm 03/18/25 20:09 Dextrose 50% 25 Gm/50 Ml Syringe IV PUSH PRN PRN Hypoglycemia Protocol Docusate Sodium 100 mg 03/18/25 17:00 03/25/25 17:57 Docusate Sodium 100 Mg Capsule PO 100 mg BID CHANDAN Administration Empagliflozin 10 mg 03/19/25 09:00 03/25/25 08:46 Empagliflozin 10 Mg Tablet PO 10 mg DAILY CHANDAN Administration Finasteride 5 mg 03/19/25 09:00 03/25/25 08:44 Finasteride 5 Mg Tablet PO 5 mg DAILY CHANDAN Administration Folic Acid 1 mg 03/19/25 09:00 03/25/25 08:46 Folic Acid 1 Mg Tablet PO 1 mg DAILY CHANDAN Administration Gabapentin 300 mg 03/21/25 21:00 03/25/25 20:38 Gabapentin 300 Mg Capsule PO 300 mg QHS CHANDAN Administration Glimepiride 4 mg 03/19/25 09:00 Glimepiride 2 Mg Tablet PO DAILY CHANDAN Glucagon 1 mg 03/18/25 20:09 Glucagon For Inj 1 Mg Vial IM PRN PRN Hypoglycemia Protocol Glucose 15 gm 03/18/25 20:09 Glucose Oral Gel 15 Gm Of Glucse In 37.5 Gm Tube PO PRN PRN Hypoglycemia Protocol Sodium Chloride 1,000 mls @ 75 mls/hr 03/18/25 11:25 03/25/25 14:54 Normal Saline Iv IV CONT 75 mls/hr .[id number] CHANDAN Administration Dextrose 1,000 mls @ 100 mls/hr 03/18/25 20:09 Dextrose 5% 1,000 Ml IVPB PRN PRN Hypoglycemia Protocol Ceftriaxone Sodium 2 gm/ 100 mls @ 200 mls/hr 03/23/25 14:40 03/24/25 14:44 Sodium Chloride IVPB 05/04/25 14:39 200 mls/hr Q24H CHANDAN Administration Vancomycin HCl 2,000 mg in 500 mls @ 250 mls/hr 03/25/25 05:00 03/25/25 07:48 Vancomycin 2,000 Mg/Ns 500 Ml IVPB Infused Q18H CHANDAN Infusion Insulin Aspart 2 - 5 units 03/19/25 08:00 03/25/25 12:00 Insulin Aspart (*Bkc) 100 Units/Ml SUB-Q Not Given [facility] Protocol Insulin Aspart 1 - 2 units 03/18/25 21:00 03/25/25 20:41 Insulin Aspart (*Bkc) 100 Units/Ml SUB-Q Not Given HS CHANDAN Protocol Lorazepam 2 mg 03/19/25 03:00 Lorazepam (*Crx) 1 Mg Tablet PO Q4HR PRN CIWA >15 Methocarbamol 500 mg 03/21/25 11:19 03/22/25 20:12 Methocarbamol 500 Mg Tablet PO 500 mg BID PRN Administration Muscle Spasm Metoprolol Succinate 100 mg 03/19/25 09:00 03/25/25 08:44 Metoprolol Succinate Ext Rel 100 Mg Tabcr PO 100 mg DAILY CHANDAN Administration Morphine Sulfate 2 mg 03/18/25 11:21 Morphine Sulfate (*Crx) 2 Mg/Ml Inj IV PUSH Q2H PRN Pain Rated 7-10 Multivitamins/Calcium 1 tablet 03/19/25 09:00 03/25/25 08:46 Therapeutic Multivitamins/Minerals Tab (*Bkc) PO 1 tablet DAILY CHANDAN Administration Ondansetron HCl 4 mg 03/18/25 11:21 Ondansetron Inj 4 Mg/2 Ml Vial IV PUSH Q4H PRN Nausea Oxycodone HCl 2.5 mg 03/21/25 14:19 03/24/25 21:29 Oxycodone Hcl (*Crx) 2.5 Mg Tab Ir PO 2.5 mg Q4H PRN Administration Pain Rated 4-6 Oxycodone HCl 5 mg 03/21/25 14:19 03/24/25 11:19 Oxycodone Hcl (*Crx) 5 Mg Tab Ir PO 5 mg Q4H PRN Administration Pain Rated 7-10 Polyethylene Glycol 17 gm 03/19/25 09:00 03/25/25 08:46 Polyethylene Glycol 3350 17 Gm Powd.Pack PO 17 gm DAILY CHANDAN Administration Pravastatin Sodium 20 mg 03/18/25 21:00 03/25/25 20:38 Pravastatin Sodium 20 Mg Tablet PO 20 mg HS CHANDAN Administration Sacubitril/Valsartan 1 tab 03/18/25 23:00 03/25/25 20:38 Sacubitril/Valsartan 24-26 Mg Tablet PO 1 tab Q12HR CHANDAN Administration Senna/Docusate Sodium 1 tab 03/18/25 22:50 Senna/Docusate Sodium Tablet PO HS PRN Constipation Sitagliptin Phosphate 100 mg 03/19/25 09:00 Sitagliptin Phosphate 100 Mg Tablet PO DAILY CHANDAN Sodium Bicarbonate 650 mg 03/18/25 19:15 03/25/25 17:57 Sodium Bicarbonate Tab 650 Mg Tablet PO 650 mg TID CHANDAN Administration Sodium Chloride 10 ml 03/24/25 22:00 03/25/25 14:56 Central Line Flush IV PUSH 10 ml Q8HR CHANDAN Administration Sodium Chloride 10 ml 03/24/25 15:51 Central Line Flush IV PUSH PRN PRN with TPN bag changes Sodium Chloride 20 ml 03/24/25 15:51 Central Line Flush IV PUSH PRN PRN after blood draws Thiamine HCl 100 mg 03/19/25 09:00 03/25/25 08:44 Thiamine Hcl 100 Mg Tablet PO 100 mg DAILY CHANDAN Administration Radiology Results: ITS Impressions Lumbar Spine X-Ray 03/18/25 09:35 Impression: 1: Severe lumbar spondylosis with levoscoliosis. Thoracic/Lumbar Spine CT 03/20/25 10:16 IMPRESSION: 1. Moderate to severe thoracic and lumbar spondylosis. No acute osseous adenopathy. Thoracic Spine MRI 03/21/25 13:50 IMPRESSION: 1. Moderate thoracic spondylosis. Lumbar Spine MRI 03/24/25 08:32 IMPRESSION: 1. Constellation of findings which remain concerning for L4-L5 discitis and associated osteomyelitis at both levels. No evident epidural abscess. 2. Abnormal configuration of the nerve roots in the cauda equina which extend as single thick oblique band at the right posterior aspect of the thecal sac consistent with arachnoiditis but without abnormal signal or enhancement of the nerve roots. 3. Lumbar spondylosis, moderate to severe at L5-S1 and mild in the more cephalad lumbar spine. See prior report for level by level analysis. Chest X-Ray 03/24/25 15:40 IMPRESSION: 1. Right PICC line tip at the superior cavoatrial junction. 2. Mild interstitial pattern in the bilateral lower lung zones which could represent mild pulmonary edema, atelectasis or pneumonia. 3. Chronic elevation the right hemidiaphragm. Labs Labs: Laboratory Results - last 24 hr 03/24/25 03/25/25 03/25/25 21:36 03:34 04:07 WBC 5.4 RBC 3.67 L Hgb 11.7 L Hct 37.3 L MCV 101.6 H MCH 31.9 MCHC 31.4 L RDW 14.3 Plt Count 164 MPV 10.3 Immature Gran % (Auto) 0.6 H Neut % (Auto) 74.1 H Lymph % (Auto) 10.5 L [place] % (Auto) 10.3 H Eos % (Auto) 3.9 Baso % (Auto) 0.6 Lymph # (Auto) 0.57 L [place] # (Auto) 0.6 Eos # (Auto) 0.2 Baso # (Auto) 0.0 Abs Immat Gran (auto) 0.03 Absolute Neuts (auto) 4.0 Absolute Nucleated RBC 0.000 Nucleated RBC % 0.0 Sodium 136 L Potassium 4.0 Chloride 105 Carbon Dioxide 24 Anion Gap 7 BUN 21 H Creatinine 1.16 Estim Creat Clear Calc 71 Estimated GFR > 60 Glucose 125 H POC Capillary Glucose 174 H Calcium 8.5 Vancomycin Trough 12.8 Urine Histoplasma Ag Cancelled 08/13/25 08/13/25 08/13/25 07:44 11:43 16:38 WBC RBC Hgb Hct MCV MCH MCHC RDW Plt Count MPV Immature Gran % (Auto) Neut % (Auto) Lymph % (Auto) [place] % (Auto) Eos % (Auto) Baso % (Auto) Lymph # (Auto) [place] # (Auto) Eos # (Auto) Baso # (Auto) Abs Immat Gran (auto) Absolute Neuts (auto) Absolute Nucleated RBC Nucleated RBC % Sodium Potassium Chloride Carbon Dioxide Anion Gap BUN Creatinine Estim Creat Clear Calc Estimated GFR Glucose POC Capillary Glucose 135 H 134 H 156 H Calcium Vancomycin Trough Urine Histoplasma Ag 03/25/25 20:40 WBC RBC Hgb Hct MCV MCH MCHC RDW Plt Count MPV Immature Gran % (Auto) Neut % (Auto) Lymph % (Auto) [place] % (Auto) Eos % (Auto) Baso % (Auto) Lymph # (Auto) [place] # (Auto) Eos # (Auto) Baso # (Auto) Abs Immat Gran (auto) Absolute Neuts (auto) Absolute Nucleated RBC Nucleated RBC % Sodium Potassium Chloride Carbon Dioxide Anion Gap BUN Creatinine Estim Creat Clear Calc Estimated GFR Glucose POC Capillary Glucose 164 H Calcium Vancomycin Trough Urine Histoplasma Ag
[2025-03-25 21:18] VITALS: BP 141/88; PULSE 97; RESP 20; TEMP 36.6; O2SAT 100
[2025-03-27 15:09] LABS: Histoplasma Gal'mannan Ag, Ur Negative (<0.2 ng/mL)
== END 2025-03-25 22:35 | disposition short-term general hospital (02) | DRG 540 ==
LOC: ANHED 08:20 → ANH3MEDSUR 13:00
PROVIDERS: Internal Medicine; Nurse Practitioner Acute Care; Nurse Practitioner Gerontology; Admitting Provider General Practice; Emergency Provider Emergency Medicine; PCP Family Medicine; Visit Provider Physician Assistant
DX: M46.26 Osteomyelitis of vertebra, lumbar region (principal); E66.2 Morbid (severe) obesity with alveolar hypoventilation; N17.9 Acute kidney failure, unspecified; I13.0 Hypertensive heart and chronic kidney disease with heart failure and stage 1 through stage 4 chronic kidney disease, or unspecified chronic kidney disease; I50.32 Chronic diastolic (congestive) heart failure; I42.8 Other cardiomyopathies; I48.20 Chronic atrial fibrillation, unspecified; Z68.41 Body mass index [BMI] 40.0-44.9, adult; M46.46 Discitis, unspecified, lumbar region; I25.10 Atherosclerotic heart disease of native coronary artery without angina pectoris; N18.30 Chronic kidney disease, stage 3 unspecified; E11.22 Type 2 diabetes mellitus with diabetic chronic kidney disease; E11.40 Type 2 diabetes mellitus with diabetic neuropathy, unspecified; E04.2 Nontoxic multinodular goiter; M47.816 Spondylosis without myelopathy or radiculopathy, lumbar region; M47.814 Spondylosis without myelopathy or radiculopathy, thoracic region; F10.10 Alcohol abuse, uncomplicated; W19.XXXA Unspecified fall, initial encounter; Z79.01 Long term (current) use of anticoagulants; Z87.891 Personal history of nicotine dependence; Z79.84 Long term (current) use of oral hypoglycemic drugs; S06.5XAD Traumatic subdural hemorrhage with loss of consciousness status unknown, subsequent encounter
CPT/HCPCS: 36415; 36569; 71045; 71046; 72100; 72128; 72131; 72146; 72148; 72158; 80048; 80053; 80076; 80202; 81001; 82550; 82948; 85025; 85610; 85652; 86140; 86480; 86593; 86606; 86612; 86628; 86635; 86698; 86703; 86850; 86900; 86901; 87040; 87385; 93005; 96361; 96374; 96375; 96376; 97110; 97162; 97165; 97530; 97535; 99285; A9270; A9577; C1751; G0432; J0696; J1815; J2003; J2270; J3373; J7030; J7040

== ENCOUNTER 2025-04-18 16:38 | Emergency (ER) | payer MEDICARE, SELFPAY ==
[2025-04-18] VITALS (37 sets, daily range): BP systolic 101–144; BP diastolic 64–119; PULSE 76–104; RESP 13–37; TEMP 36.4; O2SAT 95–100
--- NOTE | ~2025-04-18 | XR_ITS ---
EXAMINATION: XR chest 1V portable, 04/18/2025 19:42 CDT HISTORY: NSTEMI, heart failure COMPARISON: No comparisons available. Technique: Single view. Findings: Mild pulmonary venous congestion. No pneumothorax. Mild cardiomegaly. Mediastinal and hilar contours are within normal limits. Bony thorax no acute abnormality. Impression: Mild CHF Reviewed, dictated and finalized at location A. Impression: Mild CHF
--- NOTE | ~2025-04-18 | CT_ITS ---
EXAMINATION: CT abdomen pelvis w con DATE: 04/18/2025 18:05 INDICATION: Gastrointestinal bleed. TECHNIQUE: Computed tomography (CT) of the abdomen and pelvis was performed with 100 mL Omnipaque-350 intravenous contrast. Automated exposure control and iterative reconstruction technique were employed. The dose-length product was 1726.77 mGy-cm. COMPARISON: 02/19/2025 FINDINGS: Chronic elevation the right hemidiaphragm. Pulmonary arterial filling defect within a subsegmental pulmonary artery of the posterior basilar segment of the right lower lobe. There is additional possible small pulmonary arterial filling defect in the segmental pulmonary artery of the superior segment of the left lower lobe. Small left pleural effusion. Mild atelectasis and a few small calcified pulmonary nodules in the bilateral lower lobes along with multiple scattered splenic calcifications consistent with old granulomatous disease. Borderline heart size with right ventricular and atrial enlargement. There is however no leftward bowing of the ventricular septum to suggest right heart strain. Atherosclerotic coronary artery calcification. No pericardial effusion. Liver, gallbladder, pancreas and bilateral adrenal glands are normal. Bilateral low-attenuation renal cysts the largest on the left measuring up to 4.5 cm. 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 There are small amount of fluid scattered throughout the the proximal to mid colon consistent with diarrhea. There is a 6 cm diameter ball of stool at the rectum where there is some mild surrounding wall thickening and stranding in the perirectal fat which could be seen with constipation and secondary stercoral colitis. No bowel obstruction. The appendix is not visualized. No pericecal inflammatory change to suggest acute appendicitis. Prominent distention of the bladder. No free intraperitoneal gas or fluid. No pathologically enlarged abdominal or pelvic lymphadenopathy. There is calcified atherosclerosis of the aorta and many of the other arteries. There are some body wall edema at the bilateral flanks extending into the proximal thighs. Moderate lumbar spondylosis. Is also moderate bilateral sacroiliac osteoarthritis. IMPRESSION: 1. Pulmonary embolism in a subsegmental pulmonary arteries the posterior basilar segment right lower lobe with likely significant additional ulnar embolism in the superior segment of pulmonary artery of the left lower lobe. Dr. Del Toro discussed these findings with Dr. Padilla at 6:20 PM. 2. There are some wall thickening at the rectum and mild perirectal stranding suggestive of a proctocolitis which could be structural colitis related 6 similar ball of stool at rectum versus other infectious or inflammatory etiology. Reviewed, dictated and finalized at location A. IMPRESSION: 1. Pulmonary embolism in a subsegmental pulmonary arteries the posterior basila r segment right lower lobe with likely significant additional ulnar embolism in the superior segment of pulmonary artery of the left lower lobe. Dr. Del Toro discussed these findings with Dr. Padilla at 6:20 PM. 2. There are some wall thickening at the rectum and mild perirectal stranding s uggestive of a proctocolitis which could be structural colitis related 6 simila r ball of stool at rectum versus other infectious or inflammatory etiology.
--- OUTSIDE RECORDS SUMMARY | 2025-04-18 16:46 | XMS_ITS | Encounter Summary ---
Author Organization [facility] Health Address [address] [facility] [place] [address] Care Team Providers Care Match Marker Name Role Phone Elizabeth Wei MD Primary Care Provider [phone] Shagufta Khan MD Primary Care Provider Encounter Details Date Type Department Care Team (Late st Contact Info) Description 02/25/2019 Lab Requisition [facility] [address] [facility] [place] [id number] Leola Pereyra MD [address] [facility] [address] DEPT [place] [address] Social History Tobacco Use Types Packs/Day Years [...] Description 06/10/2025 2:00 PM CDT Office Visit [facility] - Nephrology [address] [facility] [place] [address] Karthikeyan Elizabeth MD [address] [place] [address] [address] [place] [address] documented as of this encounter Procedures Procedure Name Priority Date/Time Associated Diagnosis Comments DERMATOPATHOLOGY Routine 02/24/2019 12:0 0 AM CDT documented in this encounter Results * DERMATOPATHOLOGY (02/24/2019 12:00 AM CDT) Case Report Dermatopathology Report Case: [id number] Authorizing Provider: Leola Pereyra MD Collected: 02/24/2019 [...] specimen consists of a shave biopsy measuring [id number] mm. Jar 0. 9 3:52 PM CDT [...] purposes. Billing Codes Specimen Charges Stain Charges [id number] 1 [id number] 1 1 3:52 PM CDT DERMATOPATHOLOGY LABORATORY [...] / Unknown 02/24/2019 02/25/2019 6:38 AM CDT us Leola Pereyra MD LAB - PATHOLOGY/CYTOLOGY OR DERABLES Final Result DERMATOPATHOLOGY LABORATORY [facility] - Department of Dermatology [address] [facility] 5th [place] [address], [facility] [phone] documented in this encounter Visit Diagnoses Not on filedocumented in this encounter Care Teams Match Marker Relationship Specialty Start Date End Date Elizabeth Wei MD PCP - General Family Medicine 01/22/19 09/25/23 Shagufta Khan MD [address] [place] [address] PCP - General Family Medicine 09/26/23 documented as of this encounter
--- OUTSIDE RECORDS SUMMARY | 2025-04-18 16:46 | XMS_ITS | Encounter Summary ---
Author Organization [facility] Health Address [address] [facility] [place] [address] Care Team Providers Care Petroleum Inspector Name Role Phone Elizabeth Wei MD Primary Care Provider [phone]- [phone] Shagufta Khan MD Primary Care Provider [phone] Reason for Visit * Reason Onset Date Comments MEDICATION REFILL 11/02/2020 Encounter Details Date Type Department Care Team (Late st Contact Info) Description 11/02/2020 Refill [facility] - Nephrology [address] [place] [address], [place] [phone] Karthikeyan Elizabeth MD [address] [place] [address] [place] [id number] MEDICATION REFILL Social History Tobacco Use Types [...] Description 06/10/2025 2:00 PM CDT Office Visit [facility] - Nephrology [address] [place] [address], [place] [address] Karthikeyan Elizabeth MD [address] [place] [address] [place] [address] documented as of this encounter Visit Diagnoses Not on filedocumented in this encounter Care Teams Petroleum Inspector Relationship Specialty Start Date End Date Elizabeth Wei MD PCP - General Family Medicine 01/22/19 09/25/23 Shagufta Khan MD [address] [place] [address] PCP - General Family Medicine 09/26/23 documented as of this encounter
--- OUTSIDE RECORDS SUMMARY | 2025-04-18 16:46 | XMS_ITS | Clinical Summary ---
Author Organization [facility] Address [address] [place] [address] Care Team Providers Care Waste Baler Name Role Phone Shagufta Khan MD Primary Care Provider [phone] Source Comments [facility],non-owned Affiliates and Associated Physician Practices is amultiple site organization consisting of ambulatory clinics and hospital sitesin [place], [place], [place] and [place]. This disclosure is being madepursuant to the Care Everywhere program and may not contain all information available regarding this patient. Last updated 18.[facility] Allergies Active Allergy Reactions Criticality Noted Date Comments Penicillins Unknown Childhood allergy, unknown reaction. Medications * Be aware that medications may not be up to date on this document. Alwaysverify current medications with the patient. finasteride (PROSCAR) 5 MG tablet Take 1 (one) tablet by mouth once daily Taking as needed for swelling 11/07/19 19 Active metFORMIN ER 24hr (GLUCOPHAGE [...] tablet by mouth 2 times daily Active gabapentin (Neurontin) 300 MG capsule Take 1 (one) capsule by mouth at bedtime 04/21/20 23 Active chlorthalidone (Hygroton) 25 MG tablet Take 1 (one) tablet by mouth once daily 07/30/20 23 Active Jardiance 10 MG tablet Take 1 (one) tablet by mouth once daily 07/13/20 23 Active Entresto 24-26 MG tablet Take 1 (one) tablet by mouth once daily 09/11/19 24 Active furosemide (Lasix) 20 MG tabletIndication s:Stage 3 chronic kidney disease, unspecified whether stage 3a or 3b CKD (HCC) Take 2 (two) tablets by mouth once daily 180 tablet 3 02/10/20 25 Active acetaminophen (Tylenol) 500 MG tablet Take 1 (one) tablet by mouth every 4 hours as needed Maximum allowable Acetaminophen amount = 4 Grams (4000 mg) / 24 hours. 04/08/20 25 Active albuterol HFA (Proventil; Ventolin; Proair) 108 (90 Base) MCG/ACT inhaler Inhale 2 (two) puffs by mouth every 4 hours as needed for Shortness of Breath or Wheezing 04/08/20 25 Active cloNIDine (Catapres) 0.1 MG tablet Take 1 (one) tablet by mouth 2 times daily 04/08/20 25 Active hydrALAZINE (Apresoline) 25 MG tablet Take 1 (one) tablet by mouth 3 times daily 04/08/20 25 Active bisacodyl (Dulcolax) 10 MG suppository Insert 1 (one) suppository into the rectum once daily as needed for Constipation 04/08/20 25 Active polyethylene glycol 3350 (Miralax) 17 g packet Take 17 (seventeen) g by mouth once daily 04/08/20 25 Active senna-docusate (Senokot-S) 8.6-50 MG tablet Take 1 (one) tablet by mouth once daily 04/08/20 25 Active nystatin (Mycostatin) 229489 UNIT/GM powder Apply to affected area as needed (abdominal folds and groin) 04/08/20 25 Active oxyCODONE, immediate release, (Roxicodone) 5 MG tabletIndication s:Sensory motor neuropathy Take 1 (one) tablet by mouth every 6 hours as needed 4 tablet 04/09/20 25 Active amLODIPine (NORVASC) 10 MG tablet Take 1 (one) tablet by mouth at bedtime 11/07/19 19 025 Discontin ued(Clini nancy Decision) glimepiride (AMARYL) 4 MG tablet Take 1 (one) tablet by mouth daily with breakfast 11/07/19 19 025 Discontin ued(List Clean-Up) JANUVIA 100 MG tablet Take 1 (one) tablet by mouth once daily 11/07/19 19 025 Discontin ued(List Clean-Up) sodium bicarbonate 650 MG tabletIndication s:Stage 3 chronic kidney disease, unspecified whether stage 3a or 3b CKD (HCC) Take 1 (one) tablet by mouth 3 times daily 90 tablet 3 07/06/20 21 025 Discontin ued(List Clean-Up) hydrALAZINE (Apresoline) 100 MG tabletIndication s:Crohn's disease of colon with complication (HCC),Primary hypertension Take 0.5 (one-half) tablet by mouth 3 times daily 270 tablet 1 01/30/20 24 025 Discontin ued(List Clean-Up) cloNIDine (Catapres) 0.1 MG tablet TAKE 1 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 Patient was on B6 and B12 for awhile and then he does not remember taking it for awhile now. Repeat B12 level was normal and MMA levels ordered but never collected. At the time of discharge, patient should stay on B12 1000 mcg p.o. daily. 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 Patient was on B6 and B12 for awhile and then he does not remember taking it for awhile now. Repeat B12 level was normal and MMA levels are pending. At the time of discharge, patient should stay on B12 1000 mcg p.o. daily. 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 Patient was on B6 and B12 for awhile and then he does not remember taking it for awhile now. Repeat B12 level was normal and MMA levels are pending. At the time of discharge, patient should stay on B12 1000 mcg p.o. daily. 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 Patient was on B6 and B12 for awhile and then he does not remember taking it for awhile now. Repeat B12 level was normal and MMA levels are pending. At the time of discharge, patient should stay on B12 1000 mcg p.o. daily. 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 Patient was on B6 and B12 for awhile and then he does not remember taking it for awhile now. I will be rechecking his B12 and MMA today and will give him 1 dose of B12 1000 mcg IM today. Patient should stay on B12 1000 mcg p.o. daily. 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 Patient was on B6 and B12 for awhile and then he does not remember taking it for awhile now. Repeat B12 level was normal and MMA levels ordered but never collected. At the time of discharge, patient should stay on B12 1000 mcg p.o. daily. 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 Patient was on B6 and B12 for awhile and then he does not remember taking it for awhile now. Repeat B12 level was normal and MMA levels are pending. At the time of discharge, patient should stay on B12 1000 mcg p.o. daily. 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 Patient was on B6 and B12 for awhile and then he does not remember taking it for awhile now. Repeat B12 level was normal and MMA levels are pending. At the time of discharge, patient should stay on B12 1000 mcg p.o. daily. 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 Patient was on B6 and B12 for awhile and then he does not remember taking it for awhile now. Repeat B12 level was normal and MMA levels are pending. At the time of discharge, patient should stay on B12 1000 mcg p.o. daily. 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 Patient was on B6 and B12 for awhile and then he does not remember taking it for awhile now. I will be rechecking his B12 and MMA today and will give him 1 dose of B12 1000 mcg IM today. Patient should stay on B12 1000 mcg p.o. daily. Discitis of lumbar region 04/02/2025 Assessment & Plan (04/08/2025 3:00 PM CDT): Admitted with bilateral lower extremity weakness; OSH MRI reported L4-L5 discitis/osteomyelitis. -Transferred to [facility] for IR-guided bone biopsy. -Blood cultures (03/28) remain negative. Antibiotics held since 03/29. -NSGY: no acute surgical intervention indicated. -IR biopsy attempt (03/30) aborted due to desaturation in prone position; successfully performed under anesthesia support on 04/02/2025; aerobic, anaerobic, mycobacteria and fungal cultures remain negative as of 04/06/2025. -Clinically stable: afebrile, normal WBC, off antibiotics per Infectious Diseases. -Unlikely to be lumbar osteomyelitis. Plan: -No antibiotics unless clinical deterioration, fever/chills/rigors, or positive biopsy cultures (unlikely given 4+ days negative). This was discussed with infectious disease specialist on 04/06/2025 and they are also okay to proceed with discharge. -Continue Tylenol 500 mg q4h PRN. -PT/OT for mobility and rehab recs for rehab -Bowel regimen: Miralax + Senna. -Patient educated on hospital course, procedure, and results showing no evidence of osteomyelitis. Instructed to return if fever, chills, rigors, increasing back pain, or focal neurologic symptoms develop. Patient verbalized understanding and is medically ready for discharge to skilled rehab. Should follow up with PCP promptly after discharge. No need for NSGY or ID f/u Assessment & Plan (04/07/2025 3:09 PM CDT): Admitted with bilateral lower extremity weakness; OSH MRI reported L4-L5 discitis/osteomyelitis. -Transferred to [facility] for IR-guided bone biopsy. -Blood cultures (03/28) remain negative. Antibiotics held since 03/29. -NSGY: no acute surgical intervention indicated. -IR biopsy attempt (03/30) aborted due to desaturation in prone position; successfully performed under anesthesia support on 04/02/2025; aerobic, anaerobic, mycobacteria and fungal cultures remain negative as of 04/06/2025. -Clinically stable: afebrile, normal WBC, off antibiotics per Infectious Diseases. -Unlikely to be lumbar osteomyelitis. Plan: -No antibiotics unless clinical deterioration, fever/chills/rigors, or positive biopsy cultures (unlikely given 4+ days negative). This was discussed with infectious disease specialist on 04/06/2025 and they are also okay to proceed with discharge. -Continue Tylenol 500 mg q4h PRN. -PT/OT for mobility and rehab recs for rehab -Bowel regimen: Miralax + Senna. -Patient educated on hospital course, procedure, and results showing no evidence of osteomyelitis. Instructed to return if fever, chills, rigors, increasing back pain, or focal neurologic symptoms develop. Patient verbalized understanding and is medically ready for discharge to skilled rehab. Should follow up with PCP promptly after discharge. No need for NSGY or ID f/u Assessment & Plan (04/06/2025 2:43 PM CDT): Admitted with bilateral lower extremity weakness; OSH MRI reported L4-L5 discitis/osteomyelitis. -Transferred to [facility] for IR-guided bone biopsy. -Blood cultures (03/28) remain negative. Antibiotics held since 03/29. -NSGY: no acute surgical intervention indicated. -IR biopsy attempt (03/30) aborted due to desaturation in prone position; successfully performed under anesthesia support on 04/02/2025; aerobic, anaerobic, mycobacteria and fungal cultures remain negative as of 04/06/2025. -Clinically stable: afebrile, normal WBC, off antibiotics per Infectious Diseases. -Unlikely to be lumbar osteomyelitis. Plan: -No antibiotics unless clinical deterioration, fever/chills/rigors, or positive biopsy cultures (unlikely given 4+ days negative). This was discussed with infectious disease specialist on 04/06/2025 and they are also okay to proceed with discharge. -Continue Tylenol 500 mg q4h PRN. -PT/OT for mobility and rehab. -Bowel regimen: Miralax + Senna. -Patient educated on hospital course, procedure, and results showing no evidence of osteomyelitis. Instructed to return if fever, chills, rigors, increasing back pain, or focal neurologic symptoms develop. Patient verbalized understanding and is medically ready for discharge to skilled rehab. Should follow up with PCP promptly after discharge. Assessment & Plan (04/05/2025 12:25 PM CDT): -Admitted with bilateral lower extremity weakness; OSH MRI reported L4-L5 discitis/osteomyelitis. -Transferred to [facility] for IR-guided bone biopsy. -Blood cultures (03/28) remain negative. Antibiotics held since 03/25. -NSGY: no acute surgical intervention indicated. -IR biopsy attempt (03/30) aborted due to desaturation in prone position; performed under anesthesia support on 04/02/2025; aerobic anaerobic mycobacteria and fungal cultures are in progress -Clinically stable: afebrile, normal WBC, off antibiotics pending biopsy. Plan: -Hold antibiotics unless clinical deterioration/sepsis/microbiology resulted from the biopsy specimen. -ID following. -Tylenol 500 mg q4h PRN. -PT/OT for mobility and rehab needs. -Bowel regimen: Miralax + Senna. Assessment & Plan (04/04/2025 3:02 PM CDT): -Admitted with bilateral lower extremity weakness; OSH MRI confirmed L4-L5 discitis/osteomyelitis. -Transferred to [facility] for IR-guided bone biopsy. -Blood cultures (03/28) remain negative. Antibiotics held since 03/25. -NSGY: no acute surgical intervention indicated. -IR biopsy attempt (03/30) aborted due to desaturation in prone position; performed under anesthesia support on 04/02/2025 -Clinically stable: afebrile, normal WBC, off antibiotics pending biopsy. Plan: -Hold antibiotics unless clinical deterioration/sepsis/microbiology resulted from the biopsy specimen. -ID following. -Tylenol 500 mg q4h PRN. -PT/OT for mobility and rehab needs. -Bowel regimen: Miralax + Senna. Assessment & Plan (04/03/2025 6:32 PM CDT): -Admitted with bilateral lower extremity weakness; OSH MRI confirmed L4-L5 discitis/osteomyelitis. -Transferred to [facility] for IR-guided bone biopsy. -Blood cultures (03/28) remain negative. Antibiotics held since 03/25. -NSGY: no acute surgical intervention indicated. -IR biopsy attempt (03/30) aborted due to desaturation in prone position; performed under anesthesia support on 04/02/2025 -Clinically stable: afebrile, normal WBC, off antibiotics pending biopsy. Plan: -Hold antibiotics unless clinical deterioration/sepsis. -ID following. -Tylenol 500 mg q4h PRN. -PT/OT for mobility and rehab needs. -Bowel regimen: Miralax + Senna. Assessment & Plan (04/02/2025 7:14 PM CDT): -Admitted with bilateral lower extremity weakness; OSH MRI confirmed L4-L5 discitis/osteomyelitis. -Transferred to [facility] for IR-guided bone biopsy. -Blood cultures (03/28) remain negative. Antibiotics held since 03/25. -NSGY: no acute surgical intervention indicated. -IR biopsy attempt (03/30) aborted due to desaturation in prone position; awaiting anesthesia support for re-attempt. -Clinically stable: afebrile, normal WBC, off antibiotics pending biopsy. Plan: -IR to reattempt biopsy with anesthesia support (tentatively 04/02). -Hold antibiotics unless clinical deterioration/sepsis. -ID following. -Tylenol 500 mg q4h PRN. -PT/OT for mobility and rehab needs. -Bowel regimen: Miralax + Senna. Shortness of breath 04/01/2025 Assessment & Plan (04/10/2025 12:28 PM CDT): Multifactorial from above problems: CXR (03/31) and CT chest (04/01) unremarkable. -Albuterol inhaler 2 puffs q4h PRN. -Stable O2, can DC continuous pulse ox -Continue home CHF regimen (Jardiance, furosemide, metoprolol, Entresto); restart chlorthalidone in place of amlodipine as below -CPAP nightly. Assessment & Plan (04/09/2025 1:21 PM CDT): - Patient was feeling SOB and had some mild wheezing - CXR on 03/31 unremarkable, CT Chest 04/01 unremarkable - Albuterol inhaler 2 puff Q4H PRN - Continue to monitor Assessment & Plan (04/08/2025 3:00 PM CDT): Multifactorial from above problems: CXR (03/31) and CT chest (04/01) unremarkable. -Albuterol inhaler 2 puffs q4h PRN. -Stable O2, can DC continuous pulse ox -Continue home CHF regimen (Jardiance, furosemide, metoprolol, Entresto); restart chlorthalidone in place of amlodipine as below -CPAP nightly. Assessment & Plan (04/07/2025 3:09 PM CDT): Multifactorial from above problems: CXR (03/31) and CT chest (04/01) unremarkable. -Albuterol inhaler 2 puffs q4h PRN. -Continue monitoring. -Continue home CHF regimen (Jardiance, furosemide, metoprolol, Entresto); restart chlorthalidone in place of amlodipine as below -CPAP nightly. Assessment & Plan (04/06/2025 2:43 PM CDT): Multifactorial from above problems: CXR (03/31) and CT chest (04/01) unremarkable. -Albuterol inhaler 2 puffs q4h PRN. -Continue monitoring. -Continue home CHF regimen (Jardiance, furosemide, metoprolol, Entresto); hold chlorthalidone at 25 mg t.i.d. and the home dose is 50 mg t.i.d.. - CPAP nightly. Assessment & Plan (04/05/2025 12:25 PM CDT): Multifactorial from above problems: CXR (03/31) and CT chest (04/01) unremarkable. -Albuterol inhaler 2 puffs q4h PRN. -Continue monitoring. -Continue home CHF regimen (Jardiance, furosemide, metoprolol, Entresto); hold chlorthalidone at 25 mg t.i.d. and the home dose is 50 mg t.i.d.. - CPAP nightly. Assessment & Plan (04/04/2025 3:03 PM CDT): Multifactorial from above problems: CXR (03/31) and CT chest (04/01) unremarkable. -Albuterol inhaler 2 puffs q4h PRN. -Continue monitoring. -Continue home CHF regimen (Jardiance, furosemide, metoprolol, Entresto); hold chlorthalidone at 25 mg t.i.d. and the home dose is 50 mg t.i.d.. - CPAP nightly. Assessment & Plan (04/03/2025 6:32 PM CDT): Multifactorial from above problems: CXR (03/31) and CT chest (04/01) unremarkable. -Albuterol inhaler 2 puffs q4h PRN. -Continue monitoring. -Continue home CHF regimen (Jardiance, furosemide, metoprolol, Entresto); hold chlorthalidone and hydralazine (normotensive). - CPAP nightly. Assessment & Plan (04/02/2025 7:14 PM CDT): Multifactorial from above problems: CXR (03/31) and CT chest (04/01) unremarkable. -Albuterol inhaler 2 puffs q4h PRN. -Continue monitoring. -Continue home CHF regimen (Jardiance, furosemide, metoprolol, Entresto); hold chlorthalidone and hydralazine (normotensive). - CPAP nightly. Assessment & Plan (04/01/2025 1:22 PM CDT): - Patient was feeling SOB and had some mild wheezing - CXR on 03/31 unremarkable, CT Chest 04/01 unremarkable - Albuterol inhaler 2 puff Q4H PRN - Continue to monitor ANTONIO on CPAP 03/26/2025 Assessment & Plan (04/10/2025 12:28 PM CDT): Multifactorial from above problems: CXR (03/31) and CT chest (04/01) unremarkable. -Albuterol inhaler 2 puffs q4h PRN. -Stable O2, can DC continuous pulse ox -Continue home CHF regimen (Jardiance, furosemide, metoprolol, Entresto); restart chlorthalidone in place of amlodipine as below -CPAP nightly. Assessment & Plan (04/09/2025 1:21 PM CDT): - On CPAP nightly Assessment & Plan (04/08/2025 3:00 PM CDT): Multifactorial from above problems: CXR (03/31) and CT chest (04/01) unremarkable. -Albuterol inhaler 2 puffs q4h PRN. -Stable O2, can DC continuous pulse ox -Continue home CHF regimen (Jardiance, furosemide, metoprolol, Entresto); restart chlorthalidone in place of amlodipine as below -CPAP nightly. Assessment & Plan (04/07/2025 3:09 PM CDT): Multifactorial from above problems: CXR (03/31) and CT chest (04/01) unremarkable. -Albuterol inhaler 2 puffs q4h PRN. -Continue monitoring. -Continue home CHF regimen (Jardiance, furosemide, metoprolol, Entresto); restart chlorthalidone in place of amlodipine as below -CPAP nightly. Assessment & Plan (04/06/2025 2:43 PM CDT): Multifactorial from above problems: CXR (03/31) and CT chest (04/01) unremarkable. -Albuterol inhaler 2 puffs q4h PRN. -Continue monitoring. -Continue home CHF regimen (Jardiance, furosemide, metoprolol, Entresto); hold chlorthalidone at 25 mg t.i.d. and the home dose is 50 mg t.i.d.. - CPAP nightly. Assessment & Plan (04/05/2025 12:25 PM CDT): Multifactorial from above problems: CXR (03/31) and CT chest (04/01) unremarkable. -Albuterol inhaler 2 puffs q4h PRN. -Continue monitoring. -Continue home CHF regimen (Jardiance, furosemide, metoprolol, Entresto); hold chlorthalidone at 25 mg t.i.d. and the home dose is 50 mg t.i.d.. - CPAP nightly. Assessment & Plan (04/04/2025 3:03 PM CDT): Multifactorial from above problems: CXR (03/31) and CT chest (04/01) unremarkable. -Albuterol inhaler 2 puffs q4h PRN. -Continue monitoring. -Continue home CHF regimen (Jardiance, furosemide, metoprolol, Entresto); hold chlorthalidone at 25 mg t.i.d. and the home dose is 50 mg t.i.d.. - CPAP nightly. Assessment & Plan (04/03/2025 6:32 PM CDT): Multifactorial from above problems: CXR (03/31) and CT chest (04/01) unremarkable. -Albuterol inhaler 2 puffs q4h PRN. -Continue monitoring. -Continue home CHF regimen (Jardiance, furosemide, metoprolol, Entresto); hold chlorthalidone and hydralazine (normotensive). - CPAP nightly. Assessment & Plan (04/02/2025 7:14 PM CDT): Multifactorial from above problems: CXR (03/31) and CT chest (04/01) unremarkable. -Albuterol inhaler 2 puffs q4h PRN. -Continue monitoring. -Continue home CHF regimen (Jardiance, furosemide, metoprolol, Entresto); hold chlorthalidone and hydralazine (normotensive). - CPAP nightly. Assessment & Plan (04/01/2025 6:45 AM CDT): - On CPAP nightly Assessment & Plan (03/31/2025 6:53 AM CDT): - On CPAP nightly Assessment & Plan (03/30/2025 6:46 AM CDT): - On CPAP nightly Assessment & Plan (03/29/2025 6:37 AM CDT): - On CPAP at home - RT consulted Assessment & Plan (03/28/2025 7:48 AM CDT): - On CPAP at home - RT consulted Primary hypertension 03/26/2025 Assessment & Plan (04/10/2025 12:28 PM CDT): - Home meds: amlodipine 10 mg daily, chlorthalidone 25 mg daily, clonidine 0.1 mg BID, hydralazine 50 mg TID, Entresto 24/26 mg daily. -Admission BP: 117/87. Plan: -Continue amlodipine 10 mg daily, Entresto 24/26 mg daily, clonidine 0.1 mg BID. -Holding chlorthalidone and hydralazine (normotensive). -04/07: DC amlodipine and restart chlorthalidone given LE swelling Assessment & Plan (04/09/2025 1:21 PM CDT): - Home regimen: amlodipine 10 mg qd, chlorthalidone 25 mg qd, clonidine 0.1 mg BID, hydralazine 50 mg TID, entresto 24-26 mg qd - BP 117/87 on admission PLAN: - Continue amlodipine 10 mg qd, Entresto, and clonidine 0.1 mg BID - Holding chlorthalidone and hydralazine as patient normotensive on admission Assessment & Plan (04/08/2025 3:00 PM CDT): - Home meds: amlodipine 10 mg daily, chlorthalidone 25 mg daily, clonidine 0.1 mg BID, hydralazine 50 mg TID, Entresto 24/26 mg daily. -Admission BP: 117/87. Plan: -Continue amlodipine 10 mg daily, Entresto 24/26 mg daily, clonidine 0.1 mg BID. -Holding chlorthalidone and hydralazine (normotensive). -04/07: DC amlodipine and restart chlorthalidone given LE swelling Assessment & Plan (04/07/2025 3:09 PM CDT): - Home meds: amlodipine 10 mg daily, chlorthalidone 25 mg daily, clonidine 0.1 mg BID, hydralazine 50 mg TID, Entresto 24/26 mg daily. -Admission BP: 117/87. Plan: -Continue amlodipine 10 mg daily, Entresto 24/26 mg daily, clonidine 0.1 mg BID. -Holding chlorthalidone and hydralazine (normotensive). -04/07: DC amlodipine and restart chlorthalidone given LE swelling Assessment & Plan (04/06/2025 2:43 PM CDT): - Home meds: amlodipine 10 mg daily, chlorthalidone 25 mg daily, clonidine 0.1 mg BID, hydralazine 50 mg TID, Entresto 24/26 mg daily. -Admission BP: 117/87. Plan: -Continue amlodipine 10 mg daily, Entresto 24/26 mg daily, clonidine 0.1 mg BID. -Holding chlorthalidone and hydralazine (normotensive). Assessment & Plan (04/05/2025 12:25 PM CDT): - Home meds: amlodipine 10 mg daily, chlorthalidone 25 mg daily, clonidine 0.1 mg BID, hydralazine 50 mg TID, Entresto 24/26 mg daily. -Admission BP: 117/87. Plan: -Continue amlodipine 10 mg daily, Entresto 24/26 mg daily, clonidine 0.1 mg BID. -Hold chlorthalidone and hydralazine (normotensive). Assessment & Plan (04/04/2025 3:02 PM CDT): - Home meds: amlodipine 10 mg daily, chlorthalidone 25 mg daily, clonidine 0.1 mg BID, hydralazine 50 mg TID, Entresto 24/26 mg daily. -Admission BP: 117/87. Plan: -Continue amlodipine 10 mg daily, Entresto 24/26 mg daily, clonidine 0.1 mg BID. -Hold chlorthalidone and hydralazine (normotensive). Assessment & Plan (04/03/2025 6:05 PM CDT): - Home meds: amlodipine 10 mg daily, chlorthalidone 25 mg daily, clonidine 0.1 mg BID, hydralazine 50 mg TID, Entresto 24/26 mg daily. -Admission BP: 117/87. Plan: -Continue amlodipine 10 mg daily, Entresto 24/26 mg daily, clonidine 0.1 mg BID. -Hold chlorthalidone and hydralazine (normotensive). Assessment & Plan (04/02/2025 7:14 PM CDT): - Home meds: amlodipine 10 mg daily, chlorthalidone 25 mg daily, clonidine 0.1 mg BID, hydralazine 50 mg TID, Entresto 24/26 mg daily. -Admission BP: 117/87. Plan: -Continue amlodipine 10 mg daily, Entresto 24/26 mg daily, clonidine 0.1 mg BID. -Hold chlorthalidone and hydralazine (normotensive). Assessment & Plan (04/01/2025 6:45 AM CDT): - Home regimen: amlodipine 10 mg qd, chlorthalidone 25 mg qd, clonidine 0.1 mg BID, hydralazine 50 mg TID, entresto 24-26 mg qd - BP 117/87 on admission PLAN: - Continue amlodipine 10 mg qd, Entresto, and clonidine 0.1 mg BID - Holding chlorthalidone and hydralazine as patient normotensive on admission Assessment & Plan (03/31/2025 6:53 AM CDT): - Home regimen: amlodipine 10 mg qd, chlorthalidone 25 mg qd, clonidine 0.1 mg BID, hydralazine 50 mg TID, entresto 24-26 mg qd - BP 117/87 on admission PLAN: - Continue amlodipine 10 mg qd, Entresto, and clonidine 0.1 mg BID - Holding chlorthalidone and hydralazine as patient normotensive on admission Assessment & Plan (03/30/2025 6:46 AM CDT): - Home regimen: amlodipine 10 mg qd, chlorthalidone 25 mg qd, clonidine 0.1 mg BID, hydralazine 50 mg TID, entresto 24-26 mg qd - BP 117/87 on admission PLAN: - Restart amlodipine 10 mg qd and entresto - Holding chlorthalidone and hydralazine as patient normotensive on admission - Continue clonidine 0.1 mg BID to prevent rebound HTN Assessment & Plan (03/29/2025 6:37 AM CDT): - Home regimen: amlodipine 10 mg qd, chlorthalidone 25 mg qd, clonidine 0.1 mg BID, hydralazine 50 mg TID, entresto 24-26 mg qd - BP 117/87 on admission PLAN: - Restart amlodipine 10 mg qd and entresto - Holding chlorthalidone and hydralazine as patient normotensive on admission - Continue clonidine 0.1 mg BID to prevent rebound HTN Assessment & Plan (03/28/2025 10:45 AM CDT): - Home regimen: amlodipine 10 mg qd, chlorthalidone 25 mg qd, clonidine 0.1 mg BID, hydralazine 50 mg TID, entresto 24-26 mg qd - BP 117/87 on admission PLAN: - Restart amlodipine 10 mg qd and entresto - Holding chlorthalidone and hydralazine as patient normotensive on admission - Continue clonidine 0.1 mg BID to prevent rebound HTN Assessment & Plan (03/26/2025 7:00 AM CDT): - home regimen: amlodipine 10 mg qd, chlorthalidone 25 mg qd, clonidine 0.1 mg BID, hydralazine 50 mg TID, entresto 24-26 mg qd - BP 117/87 on admission PLAN: - holding home amlodipine, chlorthalidone, hydralazine, and entresto as patient normotensive on admission. Defer to daytime for resumption of meds > continue clonidine 0.1 mg BID to prevent rebound HTN Chronic diastolic CHF (congestive heart failure) 03/26/2025 Assessment & Plan (04/10/2025 12:28 PM CDT): Multifactorial from above problems: CXR (03/31) and CT chest (04/01) unremarkable. -Albuterol inhaler 2 puffs q4h PRN. -Stable O2, can DC continuous pulse ox -Continue home CHF regimen (Jardiance, furosemide, metoprolol, Entresto); restart chlorthalidone in place of amlodipine as below -CPAP nightly. Assessment & Plan (04/09/2025 1:21 PM CDT): - Home regimen: jardiance 10 mg qd, furosemide 40 mg qd, metoprolol 100 mg qd, entresto 24-26 mg qd PLAN: - Holding chlorthalidone and hydralazine as patient normotensive on admission - Continue jardiance 10 mg qd, metop XL 100 mg qd, furosemide 40 mg - Cardiac diet Assessment & Plan (04/08/2025 3:00 PM CDT): Multifactorial from above problems: CXR (03/31) and CT chest (04/01) unremarkable. -Albuterol inhaler 2 puffs q4h PRN. -Stable O2, can DC continuous pulse ox -Continue home CHF regimen (Jardiance, furosemide, metoprolol, Entresto); restart chlorthalidone in place of amlodipine as below -CPAP nightly. Assessment & Plan (04/07/2025 3:09 PM CDT): Multifactorial from above problems: CXR (03/31) and CT chest (04/01) unremarkable. -Albuterol inhaler 2 puffs q4h PRN. -Continue monitoring. -Continue home CHF regimen (Jardiance, furosemide, metoprolol, Entresto); restart chlorthalidone in place of amlodipine as below -CPAP nightly. Assessment & Plan (04/06/2025 2:43 PM CDT): Multifactorial from above problems: CXR (03/31) and CT chest (04/01) unremarkable. -Albuterol inhaler 2 puffs q4h PRN. -Continue monitoring. -Continue home CHF regimen (Jardiance, furosemide, metoprolol, Entresto); hold chlorthalidone at 25 mg t.i.d. and the home dose is 50 mg t.i.d.. - CPAP nightly. Assessment & Plan (04/05/2025 12:25 PM CDT): Multifactorial from above problems: CXR (03/31) and CT chest (04/01) unremarkable. -Albuterol inhaler 2 puffs q4h PRN. -Continue monitoring. -Continue home CHF regimen (Jardiance, furosemide, metoprolol, Entresto); hold chlorthalidone at 25 mg t.i.d. and the home dose is 50 mg t.i.d.. - CPAP nightly. Assessment & Plan (04/04/2025 3:03 PM CDT): Multifactorial from above problems: CXR (03/31) and CT chest (04/01) unremarkable. -Albuterol inhaler 2 puffs q4h PRN. -Continue monitoring. -Continue home CHF regimen (Jardiance, furosemide, metoprolol, Entresto); hold chlorthalidone at 25 mg t.i.d. and the home dose is 50 mg t.i.d.. - CPAP nightly. Assessment & Plan (04/03/2025 6:32 PM CDT): Multifactorial from above problems: CXR (03/31) and CT chest (04/01) unremarkable. -Albuterol inhaler 2 puffs q4h PRN. -Continue monitoring. -Continue home CHF regimen (Jardiance, furosemide, metoprolol, Entresto); hold chlorthalidone and hydralazine (normotensive). - CPAP nightly. Assessment & Plan (04/02/2025 7:14 PM CDT): Multifactorial from above problems: CXR (03/31) and CT chest (04/01) unremarkable. -Albuterol inhaler 2 puffs q4h PRN. -Continue monitoring. -Continue home CHF regimen (Jardiance, furosemide, metoprolol, Entresto); hold chlorthalidone and hydralazine (normotensive). - CPAP nightly. Assessment & Plan (04/01/2025 6:45 AM CDT): - Home regimen: jardiance 10 mg qd, furosemide 40 mg qd, metoprolol 100 mg qd, entresto 24-26 mg qd PLAN: - Holding chlorthalidone and hydralazine as patient normotensive on admission - Continue jardiance 10 mg qd, metop XL 100 mg qd, furosemide 40 mg - Cardiac diet Assessment & Plan (03/31/2025 6:53 AM CDT): - Home regimen: jardiance 10 mg qd, furosemide 40 mg qd, metoprolol 100 mg qd, entresto 24-26 mg qd PLAN: - Holding chlorthalidone and hydralazine as patient normotensive on admission - Continue jardiance 10 mg qd, metop XL 100 mg qd, furosemide 40 mg - Cardiac diet Assessment & Plan (03/30/2025 6:46 AM CDT): - Home regimen: jardiance 10 mg qd, furosemide 40 mg qd, metoprolol 100 mg qd, entresto 24-26 mg qd PLAN: - Holding chlorthalidone and hydralazine as patient normotensive on admission - Continue jardiance 10 mg qd, metop XL 100 mg qd, furosemide 40 mg - Cardiac diet Assessment & Plan (03/29/2025 6:37 AM CDT): - Home regimen: jardiance 10 mg qd, furosemide 40 mg qd, metoprolol 100 mg qd, entresto 24-26 mg qd PLAN: - Holding chlorthalidone and hydralazine as patient normotensive on admission - Continue jardiance 10 mg qd, metop XL 100 mg qd, furosemide 40 mg - Cardiac diet Assessment & Plan (03/28/2025 10:45 AM CDT): - Home regimen: jardiance 10 mg qd, furosemide 40 mg qd, metoprolol 100 mg qd, entresto 24-26 mg qd PLAN: - Holding chlorthalidone and hydralazine as patient normotensive on admission - Continue jardiance 10 mg qd, metop XL 100 mg qd, furosemide 40 mg - Cardiac diet Assessment & Plan (03/26/2025 7:00 AM CDT): - home regimen: jardiance 10 mg qd, furosemide 40 mg qd, metoprolol 100 mg qd, entresto 24-26 mg qd PLAN: > holding home amlodipine, chlorthalidone, hydralazine, and entresto as patient normotensive on admission. Defer to daytime for resumption of meds > continue jardiance 10 mg qd, metop XL 100 mg qd Non-ischemic cardiomyopathy 03/26/2025 Assessment & Plan (04/10/2025 12:28 PM CDT): Multifactorial from above problems: CXR (03/31) and CT chest (04/01) unremarkable. -Albuterol inhaler 2 puffs q4h PRN. -Stable O2, can DC continuous pulse ox -Continue home CHF regimen (Jardiance, furosemide, metoprolol, Entresto); restart chlorthalidone in place of amlodipine as below -CPAP nightly. Assessment & Plan (04/09/2025 1:21 PM CDT): - Home regimen: jardiance 10 mg qd, furosemide 40 mg qd, metoprolol 100 mg qd, entresto 24-26 mg qd PLAN: - Holding chlorthalidone and hydralazine as patient normotensive on admission - Continue jardiance 10 mg qd, metop XL 100 mg qd, furosemide 40 mg - Cardiac diet Assessment & Plan (04/08/2025 3:00 PM CDT): Multifactorial from above problems: CXR (03/31) and CT chest (04/01) unremarkable. -Albuterol inhaler 2 puffs q4h PRN. -Stable O2, can DC continuous pulse ox -Continue home CHF regimen (Jardiance, furosemide, metoprolol, Entresto); restart chlorthalidone in place of amlodipine as below -CPAP nightly. Assessment & Plan (04/07/2025 3:09 PM CDT): Multifactorial from above problems: CXR (03/31) and CT chest (04/01) unremarkable. -Albuterol inhaler 2 puffs q4h PRN. -Continue monitoring. -Continue home CHF regimen (Jardiance, furosemide, metoprolol, Entresto); restart chlorthalidone in place of amlodipine as below -CPAP nightly. Assessment & Plan (04/06/2025 2:43 PM CDT): Multifactorial from above problems: CXR (03/31) and CT chest (04/01) unremarkable. -Albuterol inhaler 2 puffs q4h PRN. -Continue monitoring. -Continue home CHF regimen (Jardiance, furosemide, metoprolol, Entresto); hold chlorthalidone at 25 mg t.i.d. and the home dose is 50 mg t.i.d.. - CPAP nightly. Assessment & Plan (04/05/2025 12:25 PM CDT): Multifactorial from above problems: CXR (03/31) and CT chest (04/01) unremarkable. -Albuterol inhaler 2 puffs q4h PRN. -Continue monitoring. -Continue home CHF regimen (Jardiance, furosemide, metoprolol, Entresto); hold chlorthalidone at 25 mg t.i.d. and the home dose is 50 mg t.i.d.. - CPAP nightly. Assessment & Plan (04/04/2025 3:03 PM CDT): Multifactorial from above problems: CXR (03/31) and CT chest (04/01) unremarkable. -Albuterol inhaler 2 puffs q4h PRN. -Continue monitoring. -Continue home CHF regimen (Jardiance, furosemide, metoprolol, Entresto); hold chlorthalidone at 25 mg t.i.d. and the home dose is 50 mg t.i.d.. - CPAP nightly. Assessment & Plan (04/03/2025 6:32 PM CDT): Multifactorial from above problems: CXR (03/31) and CT chest (04/01) unremarkable. -Albuterol inhaler 2 puffs q4h PRN. -Continue monitoring. -Continue home CHF regimen (Jardiance, furosemide, metoprolol, Entresto); hold chlorthalidone and hydralazine (normotensive). - CPAP nightly. Assessment & Plan (04/02/2025 7:14 PM CDT): Multifactorial from above problems: CXR (03/31) and CT chest (04/01) unremarkable. -Albuterol inhaler 2 puffs q4h PRN. -Continue monitoring. -Continue home CHF regimen (Jardiance, furosemide, metoprolol, Entresto); hold chlorthalidone and hydralazine (normotensive). - CPAP nightly. Assessment & Plan (04/01/2025 6:45 AM CDT): - Home regimen: jardiance 10 mg qd, furosemide 40 mg qd, metoprolol 100 mg qd, entresto 24-26 mg qd PLAN: - Holding chlorthalidone and hydralazine as patient normotensive on admission - Continue jardiance 10 mg qd, metop XL 100 mg qd, furosemide 40 mg - Cardiac diet Assessment & Plan (03/31/2025 6:53 AM CDT): - Home regimen: jardiance 10 mg qd, furosemide 40 mg qd, metoprolol 100 mg qd, entresto 24-26 mg qd PLAN: - Holding chlorthalidone and hydralazine as patient normotensive on admission - Continue jardiance 10 mg qd, metop XL 100 mg qd, furosemide 40 mg - Cardiac diet Assessment & Plan (03/30/2025 6:46 AM CDT): - Home regimen: jardiance 10 mg qd, furosemide 40 mg qd, metoprolol 100 mg qd, entresto 24-26 mg qd PLAN: - Holding chlorthalidone and hydralazine as patient normotensive on admission - Continue jardiance 10 mg qd, metop XL 100 mg qd, furosemide 40 mg - Cardiac diet Assessment & Plan (03/29/2025 6:37 AM CDT): - Home regimen: jardiance 10 mg qd, furosemide 40 mg qd, metoprolol 100 mg qd, entresto 24-26 mg qd PLAN: - Holding chlorthalidone and hydralazine as patient normotensive on admission - Continue jardiance 10 mg qd, metop XL 100 mg qd, furosemide 40 mg - Cardiac diet Assessment & Plan (03/28/2025 10:45 AM CDT): - Home regimen: jardiance 10 mg qd, furosemide 40 mg qd, metoprolol 100 mg qd, entresto 24-26 mg qd PLAN: - Holding chlorthalidone and hydralazine as patient normotensive on admission - Continue jardiance 10 mg qd, metop XL 100 mg qd, furosemide 40 mg - Cardiac diet Assessment & Plan (03/26/2025 7:00 AM CDT): - home regimen: jardiance 10 mg qd, furosemide 40 mg qd, metoprolol 100 mg qd, entresto 24-26 mg qd PLAN: > holding home amlodipine, chlorthalidone, hydralazine, and entresto as patient normotensive on admission. Defer to daytime for resumption of meds > continue jardiance 10 mg qd, metop XL 100 mg qd Atrial fibrillation 03/26/2025 Assessment & Plan (04/10/2025 12:28 PM CDT): -CHADS-VASc 5; s/p ablation (2021). 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 Plan: -Continue metoprolol 100 mg daily. -restarted Eliquis on April 03 after 24 hours of the biopsy--confirmed with IR Assessment & Plan (04/09/2025 1:21 PM CDT): - CHADsVasc 5 - s/p ablation 2021 - EKG interpretation on 03/18 from OSH showed Afib with L anterior fascicular block PLAN: - Continue metoprolol 100 mg qd - Holding eliquis for biopsy Assessment & Plan (04/08/2025 3:00 PM CDT): -CHADS-VASc 5; s/p ablation (2021). 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 Plan: -Continue metoprolol 100 mg daily. -restarted Eliquis on April 03 after 24 hours of the biopsy--confirmed with IR Assessment & Plan (04/07/2025 3:09 PM CDT): -CHADS-VASc 5; s/p ablation (2021). 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 Plan: -Continue metoprolol 100 mg daily. -restarted Eliquis on April 03 after 24 hours of the biopsy--confirmed with IR Assessment & Plan (04/06/2025 2:43 PM CDT): -CHADS-VASc 5; s/p ablation (2021). 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 Plan: -Continue metoprolol 100 mg daily. -restarted Eliquis on April 03 after 24 hours of the biopsy--confirmed with IR Assessment & Plan (04/05/2025 12:25 PM CDT): -CHADS-VASc 5; s/p ablation (2021). 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 Plan: -Continue metoprolol 100 mg daily. -restarted Eliquis on April 03 after 24 hours of the biopsy--confirmed with IR Assessment & Plan (04/04/2025 3:02 PM CDT): -CHADS-VASc 5; s/p ablation (2021). 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 Plan: -Continue metoprolol 100 mg daily. -restarted Eliquis on April 03 after 24 hours of the biopsy--confirmed with IR Assessment & Plan (04/03/2025 6:32 PM CDT): -CHADS-VASc 5; s/p ablation (2021). 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 Plan: -Continue metoprolol 100 mg daily. -Restart Eliquis now after 24 hours of the biopsy--confirmed with IR Assessment & Plan (04/02/2025 7:14 PM CDT): -CHADS-VASc 5; s/p ablation (2021). 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 Plan: -Continue metoprolol 100 mg daily. -Hold Eliquis pending biopsy. Assessment & Plan (04/01/2025 6:45 AM CDT): - CHADsVasc 5 - s/p ablation 2021 - EKG interpretation on 03/18 from OSH showed Afib with L anterior fascicular block PLAN: - Continue metoprolol 100 mg qd - Holding eliquis for biopsy Assessment & Plan (03/31/2025 6:53 AM CDT): - CHADsVasc 5 - s/p ablation 2021 - EKG interpretation on 03/18 from OSH showed Afib with L anterior fascicular block PLAN: - Continue metoprolol 100 mg qd - Holding eliquis for biopsy Assessment & Plan (03/30/2025 6:46 AM CDT): - CHADsVasc 5 - s/p ablation 2021 - EKG interpretation on 03/18 from OSH showed Afib with L anterior fascicular block PLAN: - Continue metoprolol 100 mg qd - Holding eliquis for biopsy Assessment & Plan (03/29/2025 9:55 AM CDT): - CHADsVasc 5 - s/p ablation 2021 - EKG interpretation on 03/18 from OSH showed Afib with L anterior fascicular block PLAN: - Continue metoprolol 100 mg qd - Holding eliquis for biopsy Assessment & Plan (03/28/2025 10:45 AM CDT): - CHADsVasc 5 - s/p ablation 2021 - EKG interpretation on 03/18 from OSH showed Afib with L anterior fascicular block PLAN: - Continue metoprolol 100 mg qd - Holding eliquis for biopsy, if biopsy to happen on 03/27 consider heparin gtt Assessment & Plan (03/26/2025 8:44 AM CDT): - CHADsVasc 5 - s/p ablation 2021 - EKG interpretation on 03/18 from OSH showed Afib with L anterior fascicular block PLAN: > continue metoprolol 100 mg qd > holding eliquis for biopsy, if biopsy to happen on 03/27 consider heparin gtt BPH (benign prostatic hyperplasia) 03/26/2025 Assessment & Plan (04/10/2025 12:28 PM CDT): - Continue home finasteride 5 mg qd Assessment & Plan (04/09/2025 1:21 PM CDT): - Continue home finasteride 5 mg qd Assessment & Plan (04/08/2025 3:00 PM CDT): - Continue home finasteride 5 mg qd Assessment & Plan (04/07/2025 3:09 PM CDT): - Continue home finasteride 5 mg qd Assessment & Plan (04/06/2025 2:43 PM CDT): - Continue home finasteride 5 mg qd Assessment & Plan (04/05/2025 12:25 PM CDT): - Continue home finasteride 5 mg qd Assessment & Plan (04/04/2025 3:02 PM CDT): - Continue home finasteride 5 mg qd Assessment & Plan (04/03/2025 6:05 PM CDT): - Continue home finasteride 5 mg qd Assessment & Plan (04/02/2025 7:14 PM CDT): - Continue home finasteride 5 mg qd Assessment & Plan (04/01/2025 6:45 AM CDT): - Continue home finasteride 5 mg qd Assessment & Plan (03/31/2025 6:53 AM CDT): - Continue home finasteride 5 mg qd Assessment & Plan (03/30/2025 6:46 AM CDT): - Continue home finasteride 5 mg qd Assessment & Plan (03/29/2025 6:37 AM CDT): - Continue home finasteride 5 mg qd Assessment & Plan (03/28/2025 7:48 AM CDT): - Continue home finasteride 5 mg qd Assessment & Plan (03/26/2025 7:00 AM CDT): - continue home finasteride 5 mg qd HLD (hyperlipidemia) 03/26/2025 Assessment & Plan (04/10/2025 12:28 PM CDT): - Continue home pravastatin 20 mg qd Assessment & Plan (04/09/2025 1:21 PM CDT): - Continue home pravastatin 20 mg qd Assessment & Plan (04/08/2025 3:00 PM CDT): - Continue home pravastatin 20 mg qd Assessment & Plan (04/07/2025 3:09 PM CDT): - Continue home pravastatin 20 mg qd Assessment & Plan (04/06/2025 2:43 PM CDT): - Continue home pravastatin 20 mg qd Assessment & Plan (04/05/2025 12:25 PM CDT): - Continue home pravastatin 20 mg qd Assessment & Plan (04/04/2025 3:02 PM CDT): - Continue home pravastatin 20 mg qd Assessment & Plan (04/03/2025 6:05 PM CDT): - Continue home pravastatin 20 mg qd Assessment & Plan (04/02/2025 7:14 PM CDT): - Continue home pravastatin 20 mg qd Assessment & Plan (04/01/2025 6:45 AM CDT): - Continue home pravastatin 20 mg qd Assessment & Plan (03/31/2025 6:53 AM CDT): - Continue home pravastatin 20 mg qd Assessment & Plan (03/30/2025 6:46 AM CDT): - Continue home pravastatin 20 mg qd Assessment & Plan (03/29/2025 6:37 AM CDT): - Continue home pravastatin 20 mg qd Assessment & Plan (03/28/2025 7:48 AM CDT): - Continue home pravastatin 20 mg qd Assessment & Plan (03/26/2025 7:00 AM CDT): - continue home pravastatin 20 mg qd Lesion of lumbar spine 03/25/2025 Assessment & Plan (04/10/2025 12:28 PM CDT): Admitted with bilateral lower extremity weakness; OSH MRI reported L4-L5 discitis/osteomyelitis. -Transferred to [facility] for IR-guided bone biopsy. -Blood cultures (03/28) remain negative. Antibiotics held since 03/29. -NSGY: no acute surgical intervention indicated. -IR biopsy attempt (03/30) aborted due to desaturation in prone position; successfully performed under anesthesia support on 04/02/2025; aerobic, anaerobic, mycobacteria and fungal cultures remain negative as of 04/10/2025. -Clinically stable: afebrile, normal WBC, off antibiotics per Infectious Diseases. -Unlikely to be lumbar osteomyelitis and will be considered ruled out at this time. Plan: -No antibiotics unless clinical deterioration, fever/chills/rigors, or positive biopsy cultures (unlikely given 4+ days negative). This was discussed with infectious disease specialist on 04/06/2025 and they are also okay to proceed with discharge. -Continue Tylenol 500 mg q4h PRN. -PT/OT for mobility and rehab recs for rehab -Bowel regimen: Miralax + Senna. -Patient educated on hospital course, procedure, and results showing no evidence of osteomyelitis. Instructed to return if fever, chills, rigors, increasing back pain, or focal neurologic symptoms develop. Patient verbalized understanding and is medically ready for discharge to skilled rehab. Should follow up with PCP promptly after discharge. No need for NSGY or ID f/u Assessment & Plan (04/09/2025 1:21 PM CDT): PLAN: - IR consulted, bone biopsy once anesthesia is scheduled for respiratory support, possible 04/02 - Tylenol 500 mg q4h prn - Hold antibiotics unless septic - ID following - PT/OT: Patient would benefit from multidisciplinary therapy - Bowel regimen: Miralax, Senna Assessment & Plan (04/08/2025 3:00 PM CDT): Admitted with bilateral lower extremity weakness; OSH MRI reported L4-L5 discitis/osteomyelitis. -Transferred to [facility] for IR-guided bone biopsy. -Blood cultures (03/28) remain negative. Antibiotics held since 03/29. -NSGY: no acute surgical intervention indicated. -IR biopsy attempt (03/30) aborted due to desaturation in prone position; successfully performed under anesthesia support on 04/02/2025; aerobic, anaerobic, mycobacteria and fungal cultures remain negative as of 04/06/2025. -Clinically stable: afebrile, normal WBC, off antibiotics per Infectious Diseases. -Unlikely to be lumbar osteomyelitis. Plan: -No antibiotics unless clinical deterioration, fever/chills/rigors, or positive biopsy cultures (unlikely given 4+ days negative). This was discussed with infectious disease specialist on 04/06/2025 and they are also okay to proceed with discharge. -Continue Tylenol 500 mg q4h PRN. -PT/OT for mobility and rehab recs for rehab -Bowel regimen: Miralax + Senna. -Patient educated on hospital course, procedure, and results showing no evidence of osteomyelitis. Instructed to return if fever, chills, rigors, increasing back pain, or focal neurologic symptoms develop. Patient verbalized understanding and is medically ready for discharge to skilled rehab. Should follow up with PCP promptly after discharge. No need for NSGY or ID f/u Assessment & Plan (04/07/2025 3:09 PM CDT): Admitted with bilateral lower extremity weakness; OSH MRI reported L4-L5 discitis/osteomyelitis. -Transferred to [facility] for IR-guided bone biopsy. -Blood cultures (03/28) remain negative. Antibiotics held since 03/29. -NSGY: no acute surgical intervention indicated. -IR biopsy attempt (03/30) aborted due to desaturation in prone position; successfully performed under anesthesia support on 04/02/2025; aerobic, anaerobic, mycobacteria and fungal cultures remain negative as of 04/06/2025. -Clinically stable: afebrile, normal WBC, off antibiotics per Infectious Diseases. -Unlikely to be lumbar osteomyelitis. Plan: -No antibiotics unless clinical deterioration, fever/chills/rigors, or positive biopsy cultures (unlikely given 4+ days negative). This was discussed with infectious disease specialist on 04/06/2025 and they are also okay to proceed with discharge. -Continue Tylenol 500 mg q4h PRN. -PT/OT for mobility and rehab recs for rehab -Bowel regimen: Miralax + Senna. -Patient educated on hospital course, procedure, and results showing no evidence of osteomyelitis. Instructed to return if fever, chills, rigors, increasing back pain, or focal neurologic symptoms develop. Patient verbalized understanding and is medically ready for discharge to skilled rehab. Should follow up with PCP promptly after discharge. No need for NSGY or ID f/u Assessment & Plan (04/06/2025 2:43 PM CDT): Admitted with bilateral lower extremity weakness; OSH MRI reported L4-L5 discitis/osteomyelitis. -Transferred to [facility] for IR-guided bone biopsy. -Blood cultures (03/28) remain negative. Antibiotics held since 03/29. -NSGY: no acute surgical intervention indicated. -IR biopsy attempt (03/30) aborted due to desaturation in prone position; successfully performed under anesthesia support on 04/02/2025; aerobic, anaerobic, mycobacteria and fungal cultures remain negative as of 04/06/2025. -Clinically stable: afebrile, normal WBC, off antibiotics per Infectious Diseases. -Unlikely to be lumbar osteomyelitis. Plan: -No antibiotics unless clinical deterioration, fever/chills/rigors, or positive biopsy cultures (unlikely given 4+ days negative). This was discussed with infectious disease specialist on 04/06/2025 and they are also okay to proceed with discharge. -Continue Tylenol 500 mg q4h PRN. -PT/OT for mobility and rehab. -Bowel regimen: Miralax + Senna. -Patient educated on hospital course, procedure, and results showing no evidence of osteomyelitis. Instructed to return if fever, chills, rigors, increasing back pain, or focal neurologic symptoms develop. Patient verbalized understanding and is medically ready for discharge to skilled rehab. Should follow up with PCP promptly after discharge. Assessment & Plan (04/05/2025 12:25 PM CDT): -Admitted with bilateral lower extremity weakness; OSH MRI reported L4-L5 discitis/osteomyelitis. -Transferred to [facility] for IR-guided bone biopsy. -Blood cultures (03/28) remain negative. Antibiotics held since 03/25. -NSGY: no acute surgical intervention indicated. -IR biopsy attempt (03/30) aborted due to desaturation in prone position; performed under anesthesia support on 04/02/2025; aerobic anaerobic mycobacteria and fungal cultures are in progress -Clinically stable: afebrile, normal WBC, off antibiotics pending biopsy. Plan: -Hold antibiotics unless clinical deterioration/sepsis/microbiology resulted from the biopsy specimen. -ID following. -Tylenol 500 mg q4h PRN. -PT/OT for mobility and rehab needs. -Bowel regimen: Miralax + Senna. Assessment & Plan (04/04/2025 3:02 PM CDT): -Admitted with bilateral lower extremity weakness; OSH MRI confirmed L4-L5 discitis/osteomyelitis. -Transferred to [facility] for IR-guided bone biopsy. -Blood cultures (03/28) remain negative. Antibiotics held since 03/25. -NSGY: no acute surgical intervention indicated. -IR biopsy attempt (03/30) aborted due to desaturation in prone position; performed under anesthesia support on 04/02/2025 -Clinically stable: afebrile, normal WBC, off antibiotics pending biopsy. Plan: -Hold antibiotics unless clinical deterioration/sepsis/microbiology resulted from the biopsy specimen. -ID following. -Tylenol 500 mg q4h PRN. -PT/OT for mobility and rehab needs. -Bowel regimen: Miralax + Senna. Assessment & Plan (04/03/2025 6:32 PM CDT): -Admitted with bilateral lower extremity weakness; OSH MRI confirmed L4-L5 discitis/osteomyelitis. -Transferred to [facility] for IR-guided bone biopsy. -Blood cultures (03/28) remain negative. Antibiotics held since 03/25. -NSGY: no acute surgical intervention indicated. -IR biopsy attempt (03/30) aborted due to desaturation in prone position; performed under anesthesia support on 04/02/2025 -Clinically stable: afebrile, normal WBC, off antibiotics pending biopsy. Plan: -Hold antibiotics unless clinical deterioration/sepsis. -ID following. -Tylenol 500 mg q4h PRN. -PT/OT for mobility and rehab needs. -Bowel regimen: Miralax + Senna. Assessment & Plan (04/02/2025 7:14 PM CDT): -Admitted with bilateral lower extremity weakness; OSH MRI confirmed L4-L5 discitis/osteomyelitis. -Transferred to [facility] for IR-guided bone biopsy. -Blood cultures (03/28) remain negative. Antibiotics held since 03/25. -NSGY: no acute surgical intervention indicated. -IR biopsy attempt (03/30) aborted due to desaturation in prone position; awaiting anesthesia support for re-attempt. -Clinically stable: afebrile, normal WBC, off antibiotics pending biopsy. Plan: -IR to reattempt biopsy with anesthesia support (tentatively 04/02). -Hold antibiotics unless clinical deterioration/sepsis. -ID following. -Tylenol 500 mg q4h PRN. -PT/OT for mobility and rehab needs. -Bowel regimen: Miralax + Senna. Assessment & Plan (04/01/2025 1:22 PM CDT): PLAN: - IR consulted, bone biopsy once anesthesia is scheduled for respiratory support, possible 04/02 - Tylenol 500 mg q4h prn - Hold antibiotics unless septic - ID following - PT/OT: Patient would benefit from multidisciplinary therapy - Bowel regimen: Miralax, Senna Assessment & Plan (03/31/2025 10:05 AM CDT): PLAN: - IR consulted, bone biopsy once anesthesia is scheduled for respiratory support - Tylenol 500 mg q4h prn - Hold antibiotics unless septic - ID consulted, f/u on baseline EKG - Bowel regimen: Miralax, Senna Assessment & Plan (03/30/2025 10:14 AM CDT): PLAN: - IR consulted, bone biopsy on Friday 03/30 - Tylenol 500 mg q4h prn - Hold antibiotics unless septic - ID consulted, f/u on recommendations. Assessment & Plan (03/29/2025 6:37 AM CDT): PLAN: - IR consulted, bone biopsy on Sunday - Tylenol 500 mg q4h prn - Hold 2 doses of lovenox before biopsy - NPO Sunday at 0000 - Hold antibiotics unless septic Assessment & Plan (03/28/2025 10:45 AM CDT): PLAN: - IR consulted, bone biopsy on Sunday - Tylenol 500 mg q4h prn - Hold 2 doses of lovenox before biopsy - NPO Sunday at 0000 Assessment & Plan (03/26/2025 8:44 AM CDT): - MRI at OSH found to have L4/5 discitis/OM PLAN: > IR consulted (did not speak with them overnight) > upload MRI images from OSH CKD (chronic kidney disease) stage 3, GFR 30-59 ml/min 12/31/2024 Assessment & Plan (04/09/2025 1:21 PM CDT): - Cr 1.21 on admission (baseline 1.1 to 1.2) - Continue to monitor Assessment & Plan (04/01/2025 6:45 AM CDT): - Cr 1.21 on admission (baseline 1.1 to 1.2) - Continue to monitor Assessment & Plan (03/31/2025 6:53 AM CDT): - Cr 1.21 on admission (baseline 1.1 to 1.2) - Continue to monitor Assessment & Plan (03/30/2025 6:46 AM CDT): - Cr 1.21 on admission (baseline 1.1 to 1.2) - Continue to monitor Assessment & Plan (03/29/2025 6:37 AM CDT): - Cr 1.21 on admission (baseline 1.1 to 1.2) - Continue to monitor Assessment & Plan (03/28/2025 10:45 AM CDT): - Cr 1.21 on admission (baseline 1.1 to 1.2) - Continue to monitor Assessment & Plan (03/26/2025 7:00 AM CDT): - Cr 1.21 on admission (baseline 1.1 to 1.2) Melanoma of back 03/26/2019 Cancer Staging:Clinical:Stage IB(cT1b, cN0, cM0) - Unsigned Pathologic stage from 02/18/2020:Stage IA(pT1b, pN0, cM0) - Signed by Rolando Long MD on 02/18/2020 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 Coronary artery disease invo lving [place] coronary artery of [place] heart without angina pectoris 12/28/2017 Morbid obesity with BMI of 45.0-49.9, adult 06/14 Diffuse goiter 01/02/2017 Overview (01/22/2019): Overview: Goiter diffuse Disease of thyroid gland 01/02/2017 Overview (01/22/2019): Overview: Enlarged thyroid Unknown and unspecified causes of morbidity 06/13 Overview (01/22/2019): Overview: Morbid obesity with BMI of 45.0-49.9, adult T2DM (type 2 diabetes mellitus) 06/27/2016 Overview (01/22/2019): Overview: DM type 2 with diabetic dyslipidemia Assessment & Plan (04/10/2025 12:28 PM CDT): -Continue home jardiance 10 mg qd -avoid home glimepiride because of high risk of hypoglycemia in older patients. -metformin can be considered as an outpatient -Consider SSI Assessment & Plan (04/09/2025 1:21 PM CDT): - Continue home jardiance 10 mg qd Assessment & Plan (04/08/2025 3:00 PM CDT): -Continue home jardiance 10 mg qd -avoid home glimepiride because of high risk of hypoglycemia in older patients. -metformin can be considered as an outpatient -Consider SSI Assessment & Plan (04/07/2025 3:09 PM CDT): -Continue home jardiance 10 mg qd -avoid home glimepiride because of high risk of hypoglycemia in older patients. -metformin can be considered as an outpatient Assessment & Plan (04/06/2025 2:43 PM CDT): - Continue home jardiance 10 mg qd -avoid home glimepiride because of high risk of hypoglycemia in older patients. -metformin can be considered as an outpatient Assessment & Plan (04/05/2025 12:25 PM CDT): - Continue home jardiance 10 mg qd Assessment & Plan (04/04/2025 3:02 PM CDT): - Continue home jardiance 10 mg qd Assessment & Plan (04/03/2025 6:05 PM CDT): - Continue home jardiance 10 mg qd Assessment & Plan (04/02/2025 7:14 PM CDT): - Continue home jardiance 10 mg qd Assessment & Plan (04/01/2025 6:45 AM CDT): - Continue home jardiance 10 mg qd Assessment & Plan (03/31/2025 6:53 AM CDT): - Continue home jardiance 10 mg qd Assessment & Plan (03/30/2025 6:46 AM CDT): - Continue home jardiance 10 mg qd Assessment & Plan (03/29/2025 6:37 AM CDT): - Continue home jardiance 10 mg qd Assessment & Plan (03/28/2025 7:48 AM CDT): - Continue home jardiance 10 mg qd Assessment & Plan (03/26/2025 7:00 AM CDT): > continue home jardiance 10 mg qd 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 Overview (01/22/2019): Overview: DM (diabetes mellitus), secondary, with neurologic complications ANTONIO on CPAP 07/06/2015 Overview (01/22/2019): Overview: ANTONIO on CPAP Hypertensive heart disease with congestive heart failure 11/24/2014 Overview (01/22/2019): Overview: Congestive heart failure, unspecified Muscle pain 03/11/2014 Overview (01/22/2019): Overview: Myalgia Encounters Date Type Department Care Team Description 04/02/2025 2:52 PM CDT Anesthesia Event [facility] [address] [place] [address] Florentin Poon MD Nelson, Galen Carl, MD 03/26/2025 Travel 03/25/2025 11:23 PM CDT - 04/10/2025 12:36 PM CDT Hospital Encounter [facility] [address] [place] [address] Jeny Flores DO Fernelius, Joshua, MD Kunnath, Paul V., MD Vaidyan, Philip B, MD Hospitalist Discharge Disposition: Jail Facility 03/25/2025 Telephone [facility] [address] [place] [phone] Jeny Flores DO General (OSH transfer) 02/04/2025 Refill [facility] - Nephrology [address] [facility] [place] [phone] Karthikeyan Elizabeth MD Refill Request from Last 3 Months Immunizations Immunization Administration [...] Smoking Tobacco: Former Cigarettes Q uit: 1976 Passive Smoke Exposure: Never Smokeless Tobacco: Never Tobacco Cessation:Counseling Given: Not Answered Alcohol Use Standard Drinks/Week Comments Yes 12 (1 standard drink = 0.6 oz pu re alcohol) 12 pack/week beer AUDIT-C Answer Date Recorded Q1: How often do you have a drink containing alc ohol? Monthly or less 03/26/2025 Q2: How many drinks containi ng alcohol do you have on a typical day when you are drinking? 1 or 2 03/26/2025 Q3: How often do you have si x or more drinks on one occasion? Monthly 03/26/2025 Overall Financial Resource Strain (CARDIA) Answe r Date Recorded How hard is it for you to pa y for the very basics like food, housing, medical care, and heating? Not very hard 03/26/2025 [facility] - Occupational Stress Questionnaire Answer Date Recorded Do you feel stress - tense, restless, nervous, or anxious, or unable to sleep at night because your mind is troubled all the time - these days? Not at all 03/26/2025 Hunger Vital Sign Answer Date Recorded Within the past 12 months, y ou worried that your food would run out before you got the money to buy more. Often true 03/26/20 25 Within the past 12 months, t he food you bought just didn't last and you didn't have money to get more. Often true 03/26/2025 PRAPARE - Transportation Answer Date Re corded In the past 12 months, has l ack of transportation kept you from medical appointments or from getting medications? No 03/13 In the past 12 months, has l ack of transportation kept you from meetings, work, or from getting things needed for daily living? No 03/26/2025 Housing Stability Vital Sign Answer Allan e Recorded In the last 12 months, was t here a time when you were not able to pay the mortgage or rent on time? No 03/26/2025 In the past 12 months, how m any times have you moved where you were living? 0 03/26/2025 At any time in the past 12 [facility], were you homeless or living in a assisted (including now)? No 03/26/2025 Sex and Gender Information Value Date Recorded Sex Assigned at Male 12/30/2024 2:28 PM CDT Legal Sex Male 2:11 PM CDT Gender Identity Male 12/30/2024 2:28 PM CDT Sexual Orientation Straight 12/30/2024 2: 28 PM CDT Last Filed Vital Signs Vital Sign Reading Time Taken Comments Blood Pressure 107/64 04/10/2025 9:13 AM CDT Pulse 83 04/10/2025 9:13 AM CDT Temperature 36.9 C (98.4 F) 04/10/2025 9:13 AM CDT Respiratory Rate 20 04/10/2025 9:13 AM CDT Oxygen Saturation 98% 04/10/2025 9:13 AM CDT Inhaled Oxygen Concentration 30% 04/02/2025 5 :00 PM CDT Weight 156.5 kg (345 lb) 03/26/2025 12:08 AM CDT Height 185.4 cm (6' 1) 03/26/2025 12:08 AM CDT Body Mass Index 45.52 03/26/2025 12:08 AM CDT Plan of Treatment Upcoming Encounters Date Type Department Care Team (Late st Contact Info) Description 06/10/2025 2:00 PM CDT Office Visit [facility] - Nephrology [address] [facility] [place] [address] Karthikeyan Elizabteh MD [facility] [address] Health Maintenance Due Date Last Done Comments Opioid Medication Agreement - Annual 1946 DTAP/TDAP/TD VACCINES (1 - Tdap) 1965 PNEUMOCOCCAL VACCINE 50+ (1 of 2 - PCV) 1965 ZOSTER VACCINE (1 of 2) 1996 DIABETES RETINOPATHY SCREENING 01/22/2019 DIABETES-FOOT EXAM WITH MONOFILAMENT 01/22/2019 Respiratory Syncytial Virus (RSV) Vaccine Pt: or over 60 yrs (1 - 1-dose 75+ series) 2021 DEPRESSION SCREENING 08/13/2024 MEDICARE AWV CALENDAR YEAR 2024 COVID-19 VACCINE ( season) 2025 06/26/2022, 06/09/2021, 11/01/2020, Additional history exists INFLUENZA VACCINE (#1) 2025 2, 04/13/2021, 03/31/2021, Additional history exists DIABETES-HGB A1C 2025 02/20/2025, 06/17/2021 DIABETES - URINE PROTEIN SCREENING 12/22/2025 12/22/2024, 05/08/2024, 09/04/2023, Additional history exists DIABETES-SERUM CREATININE 04/08/20262024, 04/06/2025, 04/05/2025, Additional history exists HEPATITIS C SCREENING Completed 03/31/2025, 023 HEPATITIS B VACCINE Aged Out No longe [...] On track( 025 1:47 PM CDT) Kimberly Church, RN Note: Expected end date: 11/16/2021 Interventions: Medication to be taken as prescribed. Pt to inform physician regarding any changes in medications. Pt to make sure request refills at least 1 week prior before last dose. Procedures Procedure Name Priority Date/Time Associated Diagnosis Comments GLUCOSE - POINT OF CARE Routine 04/10/2025 9:17 AM CDT GLUCOSE - POINT OF CARE Routine 04/10/2025 4:18 AM CDT GLUCOSE - POINT OF CARE Routine 04/10/2025 12:01 AM CDT GLUCOSE - POINT OF CARE Routine 04/09/2025 9:42 PM CDT GLUCOSE - POINT OF CARE Routine 04/09/2025 5:19 PM CDT GLUCOSE - POINT OF CARE Routine 04/09/2025 4:14 PM CDT GLUCOSE - POINT OF CARE Routine 04/09/2025 11:18 AM CDT GLUCOSE - POINT OF CARE Routine 04/09/2025 7:04 AM CDT GLUCOSE - POINT OF CARE Routine 04/09/2025 4:05 AM CDT GLUCOSE - POINT OF CARE Routine 04/08/2025 11:30 PM CDT GLUCOSE - POINT OF CARE Routine 04/08/2025 8:01 PM CDT GLUCOSE - POINT OF CARE Routine 04/08/2025 4:23 PM CDT GLUCOSE - POINT OF CARE Routine 04/08/2025 11:40 AM CDT GLUCOSE - POINT OF CARE Routine 04/08/2025 9:46 AM CDT GLUCOSE - POINT OF CARE Routine 04/08/2025 3:43 AM CDT CBC W/O DIFFERENTIAL Routine 04/08/2025 3:26 AM CDT PHOSPHORUS BLOOD Routine 04/08/2025 3:26 AM CDT MAGNESIUM BLOOD Routine 04/08/2025 3:26 AM CDT BASIC METABOLIC PANEL (CALCIUM TOTAL) Routine 04/08/2025 3:26 AM CDT GLUCOSE - POINT OF CARE Routine 04/07/2025 11:20 PM CDT GLUCOSE - POINT OF CARE Routine 04/07/2025 8:30 PM CDT GLUCOSE - POINT OF CARE Routine 04/07/2025 4:31 PM CDT GLUCOSE - POINT OF CARE Routine 04/07/2025 11:32 AM CDT GLUCOSE - POINT OF CARE Routine 04/07/2025 7:17 AM CDT GLUCOSE - POINT OF CARE Routine 04/07/2025 4:05 AM CDT GLUCOSE - POINT OF CARE Routine 04/06/2025 11:16 PM CDT GLUCOSE - POINT OF CARE Routine 04/06/2025 7:28 PM CDT GLUCOSE - POINT OF CARE Routine 04/06/2025 4:42 PM CDT GLUCOSE - POINT OF CARE Routine 04/06/2025 11:26 AM CDT MAGNESIUM BLOOD Routine 04/06/2025 9:36 AM CDT BASIC METABOLIC PANEL (CALCIUM TOTAL) Routine 04/06/2025 9:36 AM CDT GLUCOSE - POINT OF CARE Routine 04/06/2025 7:35 AM CDT GLUCOSE - POINT OF CARE Routine 04/06/2025 5:16 AM CDT GLUCOSE - POINT OF CARE Routine 04/06/2025 4:53 AM CDT CBC W/O DIFFERENTIAL Routine 04/06/2025 3:12 AM CDT PHOSPHORUS BLOOD Routine 04/06/2025 3:12 AM CDT GLUCOSE - POINT OF CARE Routine 04/06/2025 12:13 AM CDT GLUCOSE - POINT OF CARE Routine 04/05/2025 7:38 PM CDT GLUCOSE - POINT OF CARE Routine 04/05/2025 4:10 PM CDT METHYLMALONIC ACID BLOOD Routine 04/05/2025 12:32 PM CDT GLUCOSE - POINT OF CARE Routine 04/05/2025 12:12 PM CDT VITAMIN B12 Routine 04/05/2025 8:49 AM CDT CBC W/O DIFFERENTIAL Routine 04/05/2025 8:49 AM CDT PHOSPHORUS BLOOD Routine 04/05/2025 8:49 AM CDT MAGNESIUM BLOOD Routine 04/05/2025 8:49 AM CDT BASIC METABOLIC PANEL (CALCIUM TOTAL) Routine 04/05/2025 8:49 AM CDT GLUCOSE - POINT OF CARE Routine 04/05/2025 8:00 AM CDT GLUCOSE - POINT OF CARE Routine 04/05/2025 3:46 AM CDT GLUCOSE - POINT OF CARE Routine 04/05/2025 12:01 AM CDT GLUCOSE - POINT OF CARE Routine 04/04/2025 8:34 PM CDT GLUCOSE - POINT OF CARE Routine 04/04/2025 3:42 PM CDT GLUCOSE - POINT OF CARE Routine 04/04/2025 11:12 AM CDT MAGNESIUM BLOOD Routine 04/04/2025 9:48 AM CDT BASIC METABOLIC PANEL (CALCIUM TOTAL) Routine 04/04/2025 9:48 AM CDT GLUCOSE - POINT OF CARE Routine 04/04/2025 7:50 AM CDT GLUCOSE - POINT OF CARE Routine 04/04/2025 4:21 AM CDT CBC W/O DIFFERENTIAL Routine 04/04/2025 2:54 AM CDT PHOSPHORUS BLOOD Routine 04/04/2025 2:54 AM CDT GLUCOSE - POINT OF CARE Routine 04/03/2025 11:42 PM CDT GLUCOSE - POINT OF CARE Routine 04/03/2025 7:45 PM CDT GLUCOSE - POINT OF CARE Routine 04/03/2025 4:44 PM CDT GLUCOSE - POINT OF CARE Routine 04/03/2025 12:01 PM CDT GLUCOSE - POINT OF CARE Routine 04/03/2025 8:18 AM CDT GLUCOSE - POINT OF CARE Routine 04/03/2025 5:31 AM CDT GLUCOSE - POINT OF CARE Routine 04/02/2025 11:45 PM CDT GLUCOSE - POINT OF CARE Routine 04/02/2025 8:30 PM CDT CBC W/O DIFFERENTIAL Routine 04/02/2025 7:54 PM CDT PHOSPHORUS BLOOD Routine 04/02/2025 7:54 PM CDT MAGNESIUM BLOOD Routine 04/02/2025 7:54 PM CDT BASIC METABOLIC PANEL (CALCIUM TOTAL) Routine 04/02/2025 7:54 PM CDT GLUCOSE - POINT OF CARE Routine 04/02/2025 5:00 PM CDT PATHOLOGY TISSUE STAT 04/02/2025 4:19 PM CDT Osteomyelitis of lumbar spine (HCC) CT BONE BIOPSY Routine 04/02/2025 4:19 PM CDT Osteomyelitis of lumbar spine (HCC) CULTURE TISSUE+GRAM STAIN Routine 04/02/2025 4:19 PM CDT CULTURE FLUID+GRAM STAIN STAT 04/02/2025 4:19 PM CDT Osteomyelitis of lumbar spine (HCC) CULTURE AFB+SMEAR Routine 04/02/2025 4:1 9 PM CDT CULTURE FUNGUS OTHER+FUNGUS SMEAR Routine 04/02/2025 4:19 PM CDT CULTURE ANAEROBE Routine 04/02/2025 4:19 PM CDT ENDOTRACHEAL TUBE NOTE Routine 3:55 PM CDT GLUCOSE - POINT OF CARE Routine 04/02/2025 11:06 AM CDT GLUCOSE - POINT OF CARE Routine 04/02/2025 10:05 AM CDT GLUCOSE - POINT OF CARE Routine 04/02/2025 4:30 AM CDT GLUCOSE - POINT OF CARE Routine 04/02/2025 12:43 AM CDT GLUCOSE - POINT OF CARE Routine 04/01/2025 8:44 PM CDT CBC W/O DIFFERENTIAL Routine 04/01/2025 7:15 PM CDT PHOSPHORUS BLOOD Routine 04/01/2025 7:15 PM CDT MAGNESIUM BLOOD Routine 04/01/2025 7:15 PM CDT BASIC METABOLIC PANEL (CALCIUM TOTAL) Routine 04/01/2025 7:15 PM CDT GLUCOSE - POINT OF CARE Routine 04/01/2025 4:[address] CHEST WO CONTRAST Routine 04/01/2025 12:06 PM CDT Osteomyelitis of lumbar spine (HCC) GLUCOSE - POINT OF CARE Routine 04/01/2025 8:01 AM CDT CBC W/O DIFFERENTIAL AM Draw 04/01/2025 3:47 AM CDT PHOSPHORUS BLOOD Routine 04/01/2025 3:47 AM CDT MAGNESIUM BLOOD Routine 04/01/2025 3:47 AM CDT BASIC METABOLIC PANEL (CALCIUM TOTAL) Routine 04/01/2025 3:47 AM CDT GLUCOSE - POINT OF CARE Routine 03/31/2025 8:14 PM CDT GLUCOSE - POINT OF CARE Routine 03/31/2025 4:37 PM CDT XR CHEST 2VW STAT 03/31/2025 4:20 PM CDT Osteomyelitis of lumbar spine (HCC) GLUCOSE - POINT OF CARE Routine 03/31/2025 11:12 AM CDT GLUCOSE - POINT OF CARE Routine 03/31/2025 7:44 AM CDT HEPATITIS C AB SCREEN RFLX NAAT QUANT STAT 03/31/2025 6:59 AM CDT HIV-1 HIV-2 ANTIBODY + HIV P24 AG PANEL STAT 03/31/2025 6:59 AM CDT EKG 12-LEAD Routine 03/31/2025 6:58 AM CDT Osteomyelitis of lumbar spine (HCC) GLUCOSE - POINT OF CARE Routine 03/31/2025 5:19 AM CDT CBC W/O DIFFERENTIAL AM Draw 03/31/2025 3:06 AM CDT PHOSPHORUS BLOOD Routine 03/31/2025 3:06 AM CDT MAGNESIUM BLOOD Routine 03/31/2025 3:06 AM CDT BASIC METABOLIC PANEL (CALCIUM TOTAL) Routine 03/31/2025 3:06 AM CDT GLUCOSE - POINT OF CARE Routine 03/30/2025 8:[address] US GUIDED NEEDLE PLACEMENT Routine 03/30/2025 4:29 PM CDT Osteomyelitis of lumbar spine (HCC) GLUCOSE - POINT OF CARE Routine 03/30/2025 2:37 PM CDT PT-INR STAT 03/30/2025 7:56 AM CDT Osteomyelitis of lumbar spine (HCC) CBC W/O DIFFERENTIAL AM Draw 03/30/2025 2:37 AM CDT PHOSPHORUS BLOOD Routine 03/30/2025 2:37 AM CDT MAGNESIUM BLOOD Routine 03/30/2025 2:37 AM CDT BASIC METABOLIC PANEL (CALCIUM TOTAL) Routine 03/30/2025 2:37 AM CDT CBC W/O DIFFERENTIAL AM Draw 03/29/2025 3:12 AM CDT PHOSPHORUS BLOOD Routine 03/29/2025 3:12 AM CDT MAGNESIUM BLOOD Routine 03/29/2025 3:12 AM CDT BASIC METABOLIC PANEL (CALCIUM TOTAL) Routine 03/29/2025 3:12 AM CDT CBC W/O DIFFERENTIAL AM Draw 03/28/2025 4:49 AM CDT CULTURE BLOOD Timed 03/28/2025 4:49 AM CDT PHOSPHORUS BLOOD Routine 03/28/2025 4:48 AM CDT MAGNESIUM BLOOD Routine 03/28/2025 4:48 AM CDT BASIC METABOLIC PANEL (CALCIUM TOTAL) Routine 03/28/2025 4:48 AM CDT C-REACTIVE PROTEIN Routine 03/27/2025 6: 02 AM CDT PHOSPHORUS BLOOD Routine 03/27/2025 6:02 AM CDT MAGNESIUM BLOOD Routine 03/27/2025 6:02 AM CDT BASIC METABOLIC PANEL (CALCIUM TOTAL) Routine 03/27/2025 6:02 AM CDT ERYTHROCYTE SEDIMENTATION RATE Routine 03/27/2025 3:11 AM CDT CBC W/O DIFFERENTIAL AM Draw 03/27/2025 3:11 AM CDT CBC W AUTO DIFFERENTIAL Routine 03/26/2025 3:23 AM CDT COMPREHENSIVE METABOLIC PANEL Routine 03/26/2025 3:23 AM CDT GLUCOSE - POINT OF CARE Routine 03/26/2025 12:08 AM CDT MICROALB/CREAT RATIO URINE RANDOM PANEL Routine 12/22/2024 1:54 PM CDT HEMOGLOBIN A1C (EXTERNAL RESULT ENTRY) Routine 06/17/2021 from Last 3 Months or Most Recently Relevant to Health Maintenance Results * (ABNORMAL) GLUCOSE - POINT OF CARE (04/10/2025 9:17 AM CDT) Only the most recent of64 resultswithin the time period is included. Glucose WB/POC 204(H) 70 - 99 mg/dL 04/10/2025 9:22 AM CDT [facility] Specimen Type Arterial/C apillary 04/10/2025 9:22 AM CDT [facility] Blood BLOOD SPECIMEN / Unknown 04/10/2025 9:17 AM CDT 04/10/2025 9:22 AM CDT us Jeny Flores DO LAB - POINT OF CARE ORDERABLES Final Result [facility] [address] [place] [address], [facility] [phone] * (ABNORMAL) CBC W/O DIFFERENTIAL (04/08/2025 3:26 AM CDT) Only the most recent of12 resultswithin the time period is included. WBC 4.9 4.0 - 10.7 x10E9/L 04/08/2025 6:53 AM [facility] RBC Count 3.52(L) 4.30 - 5.80 x10E12/L 04/08/2025 6:53 AM [facility] Hemoglobin 11.1(L) 13.3 - 17.5 g/dL 04/08/2025 6:53 AM [facility] Hematocrit 33.8(L) 38.7 - 51.1 % 04/08/2025 6:53 AM [facility] MCV 96.0 80.0 - 98.0 fL 04/08/2025 6:53 AM [facility] MCH 31.5 26.7 - 33.6 pg 04/08/2025 6:53 AM [facility] MCHC 32.8 31.7 - 36.3 g/dL 04/08/2025 6:53 AM [facility] RDW-CV 14.5 11.3 - 14.8 % 04/08/2025 6:53 AM [facility] Platelet Count 202 150 - 420 x10E9/L 04/08/2025 6:53 AM [facility] MPV 11.1 7.8 - 11.4 fL 04/08/2025 6:53 AM [facility] Blood BLOOD SPECIMEN / Unknown Lab Venipuncture / Unknown 04/08/2025 3:26 AM CDT 04/08/2025 6:29 AM CDT Oseas Burton MD LAB - HEMATOLOGY ORDERABLES F inal Result [facility] [address] [place] [address], [facility] [phone] * (ABNORMAL) BASIC METABOLIC PANEL (CALCIUM TOTAL) (04/08/2025 3:26 AM CDT) Only the most recent of12 resultswithin the time period is included. BUN 20 7 - 26 mg/dL 04/08/2025 7:26 AM [facility] Creatinine 1.16 0.71 - 1.16 mg/dL 04/08/2025 7:26 AM [facility] Sodium 133(L) 136 - 145 mmol/L 04/08/2025 7:26 AM [facility] Potassium 4.1 3.5 - 4.5 mmol/L 04/08/2025 7:26 AM [facility] Chloride 100 98 - 107 mmol/L 04/08/2025 7:26 AM [facility] CO2 24 22 - 29 mmol/L 04/08/2025 7:26 AM [facility] Glucose 131(H) 70 - 99 mg/dL 04/08/2025 7:26 AM [facility] Calcium 8.0(L) 8.4 - 10.2 mg/dL 04/08/2025 7:26 AM [facility] Anion Gap 9 6 - 16 04/08/2025 7:26 AM [facility] BUN/Creatinine Ratio 17 7 - 23 04/08/2025 7:26 AM [facility] Osmolality Calculated 280 275 - 295 mOsm/kg 04/08/2025 7:26 AM [facility] eGFR by CKD-EPI 64(L) >=90 mL/min/1.7 3 m2 04/08/2025 7:26 AM [facility] Comment:Estimated Glomerular Filtration Rate (eGFR) calculated using the CKD-EPI Creatinine Equation (2020), per the National Kidney Foundation and [place] [employer]ph[employer] recommendations. Blood BLOOD SPECIMEN / Unknown Lab Venipuncture / Unknown 04/08/2025 3:26 AM CDT 04/08/2025 6:31 AM T us Oseas Burton MD LAB - CHEMISTRY ORDERABLES Fi nal Result [facility] [address] [place] [address], [facility] [phone] * PHOSPHORUS BLOOD (04/08/2025 3:26 AM CDT) Only the most recent of12 resultswithin the time period is included. Phosphorus 3.9 2.8 - 5.1 mg/dL 04/08/2025 7:26 AM CDT [facility] Blood BLOOD SPECIMEN / Unknown Lab Venipuncture / Unknown 04/08/2025 3:26 AM CDT 04/08/2025 6:31 AM CDT Oseas Burton MD LAB - CHEMISTRY ORDERABLES Fi nal Result [address] [address], [facility] [phone] * MAGNESIUM BLOOD (04/08/2025 3:26 AM CDT) Only the most recent of12 resultswithin the time period is included. Magnesium 1.9 1.6 - 2.6 mg/dL 04/08/2025 7:26 AM CDT [facility] Blood BLOOD SPECIMEN / Unknown Lab Venipuncture / Unknown 04/08/2025 3:26 AM CDT 04/08/2025 6:31 AM CDT Oseas Burton MD LAB - CHEMISTRY ORDERABLES Fi nal Result [address] [address], [facility] [phone] * METHYLMALONIC ACID BLOOD (04/05/2025 12:32 PM CDT) Methylmalonic Acid 0.26 0.00 - 0.40 umol/L 04/10/2025 4:52 PM CDT [facility] ([facility]) Comment: INTERPRETIVE INFORMATION: MMA Serum/Plasma, Vitamin B12 Status This test was developed and its performance characteristics determined by [facility]. It has not been cleared or approved by the US Food and Drug Administration. This test was performed in a CLIA certified laboratory and is intended for clinical purposes. Performed By: [facility] [address] [place] [address] Roll Form Operator: Prosper Stinson MD, PhD CLIA Number: [id number] Blood BLOOD SPECIMEN / Unknown Lab Venipuncture / Unknown 04/05/2025 12:32 PM CDT 04/05/2025 12:56 PM CDT John Champagne MD LAB - CHEMISTRY ORDERABLES F inal Result Performing Organization Address [facility]/ZIP Co de Phone Number [facility] ([facility]) [address] [place] [address] * (ABNORMAL) VITAMIN B12 (04/05/2025 8:49 AM CDT) Pathologist [facility] Vitamin B12 1,050(H) 213 - 816 pg/mL 04/05/2025 1:01 PM CDT [facility] Blood BLOOD SPECIMEN / Unknown Lab Venipuncture / Unknown 04/05/2025 8:49 AM CDT 04/05/2025 11:03 AM CDT John Champagne MD LAB - CHEMISTRY ORDERABLES F inal Result Performing Organization Address City/[facility]/ZIP Co de Phone Number [address] [address], [facility] [phone] * PATHOLOGY TISSUE (04/02/2025 4:19 PM CDT) Pathologist [facility] Case Report Surgical Pathology Report Case: [id number] Authorizing Provider: Chance Hionjosa MD Collected: 04/02/2025 04:19 PM Ordering Location: [facility] Received: 04/03/2025 07:12 AM Pathologist: Amita Meadows MD Specimen: Bone, L4-L5 04/06/2025 8:46 AM CDT [facility] Final Diagnosis Bone, L4-L5 vertebra, biopsy: - Viable bone with no evidence of osteomyelitis or metastasis 04/06/2025 8:46 AM CDT [facility] at 0846 T Microscopic Description and Comment Microscopic examination substantiates the above captioned diagnosis. 04/06/2025 8:46 AM CDT [facility] Clinical History History of osteomyelitis and invasive melanoma 04/06/2025 8:46 AM CDT [facility] Gross Description Received in formalin, labeled with the patient's name William Keene, specimen A, consists of a 0.8 cm in length x 0.2 cm in diameter cornejo-brown cylindrical bone core which is submitted in toto in a single cassette, following fixation in ICal, labeled A1. RB 04/06/2025 8:46 AM CDT [facility] Pathologist Location at [facility] 04/06/2025 8:46 AM CDT [facility] Disclaimer The performance characteristics of all immunohistochemical and indirect immunofluorescence stains (if any) cited in this report were determined by the [facility]opathology Laboratory of [facility]. Some of these tests were developed by our own laboratory and have not been cleared or approved by the US Food and Drug Administration. The FDA does not require this test to go through premarket FDA review. These tests are used for clinical purposes. They should not be regarded as investigational or for research. This laboratory is certified under the Clinical Laboratory Improvement Amendments (CLIA) as qualified to perform high complexity clinical laboratory testing. This case has been personally reviewed and interpreted by the attending (teaching) pathologist. 04/06/2025 8:46 AM CDT [facility] Collected By Cirera Gan RN 04/06/2025 8:46 AM T [facility] Embedded Images 04/06/2025 8:46 AM CDT [facility] Pathology/Cytolo gy BONE SPECIMEN / Unknown Collection / Unknown 04/02/2025 4:19 PM CDT 04/03/2025 7:12 AM CDT us Chance Hinojosa MD LAB - PATHOLOGY/CYTOLOGY FLORY THOMPSON Final Result [facility] [address] [place] [address], [facility] [phone] * CT BONE BIOPSY( or ) (04/02/2025 4:19 PM CDT) Anatomical Region Laterality Modality Computed Tomogra phy 04/02/2025 4:28 PM CDT Impressions 04/03/2025 1:11 PM CDT Impression: CT-guided core biopsy of L4/L5, as detailed above. I, Dr. Hinojosa, was present and performed/supervised the entire procedure. Moderate sedation on this patient was ordered by me, administered intravenously in my presence, and monitored by the procedure nurse as an independent trained observer who was present throughout the procedure. The following parameters were monitored: oxygen saturation, heart rate, blood pressure, and response to care.. For details on pre moderate sedation and post moderate sedation patient evaluation, please review the evaluation forms in [facility]. For details on monitored clinical parameters during the intra-service sedation time, please review the procedure nurse documentation in [facility]. > Dictated by Raffy Hebert Dr 04/02/2025 4:28 PM > Dictated by Mri Ct Tech I, Chance Hinojosa MD have personally reviewed and interpreted this examination/study. 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 Coon 2.Resident - Raffy Hebert MD Anesthesia: 1.General Anesthesia Procedure: 1.Core biopsy of L4 endplate 2.CT guidance for percutaneous biopsy (CPT 02369) Procedure in detail: The procedure, risks, and possible complications were explained to the patient/proxy in detail, and informed consent was obtained. The patient was placed in a prone position on the CT table and a radio-opaque grid was placed over the region of interest. A percutaneous entry site was marked on the skin. The marked site and skin around the region was prepped and draped in sterile fashion. Pre-procedure time out was performed. Local anesthesia was provided with 1% Lidocaine. A 17-gauge co-axial needle system was advanced in stages under CT guidance. With the needle tip at/within the edge of the lesion, 2 core samples were acquired with an 11-gauge biopsy device. The samples were sent to the pathology service in Formalin and saline. Post-procedure limited non-contrast CT did not show any immediate complications such as major hemorrhage. The patient tolerated the procedure well and was transferred to the holding area in stable condition. The pathology report is pending at the time of this dictation. 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 Coon 2.Resident - Raffy Hebert MD Anesthesia: 1.General Anesthesia Procedure: 1.Core biopsy of L4 endplate 2.CT guidance for percutaneous biopsy (CPT 58484) Procedure in detail: The procedure, risks, and possible complications were explained to the patient/proxy in detail, and informed consent was obtained. The patientwas placed in a prone position on the CT table and a radio-opaque grid was placed over the region of interest. A percutaneous entry site was markedon the skin. The marked site and skin around the region was prepped anddraped in sterile fashion. Pre-procedure time out was performed. Localanesthesia was provided with 1% Lidocaine. A 17-gauge co-axial needle system was advanced in stages under CT guidance. With the needle tip at/within the edge of the lesion, 2 core samples were acquired with an 11-gauge biopsy device. The samples were sent to the pathology service in Formalin and saline. Post-procedure limited non-contrast CT did not show anyimmediate complications such as major hemorrhage. The patient tolerated theprocedure well and was transferred to the holding area in stable condition. The pathology report is pending at the time of this dictation. Impression: CT-guided core biopsy of L4/L5, as detailed above. I, Dr. Hinojosa, was present and performed/supervised the entireprocedure. Moderate sedation on this patient was ordered by me, administered intravenously in my presence, and monitored by the procedure nurse as an independent trained observer who was present throughout the procedure.The following parameters were monitored: oxygen saturation, heart rate,blood pressure, and response to care.. For details on pre moderate sedationand post moderate sedation patient evaluation, please review the evaluation forms in [facility]. For details on monitored clinical parameters during the intra-service sedation time, please review the procedure nurse documentation in [facility]. > Dictated by Raffy Hebert Dr 04/02/2025 4:28 PM > Dictated by Mri Ct Tech I, Chance Hinojosa MD have personally reviewed and interpreted this examination/study. > Interpreting Provider: Chance Hinojosa MD on 04/03/2025 1:11 PM Chance Hinojosa MD CT ORDERABLES Final Result * CULTURE TISSUE+GRAM STAIN (04/02/2025 4:19 PM CDT) Culture No growth KHUSHBU 04/05/2025 9:41 PM CDT [facility] Gram Stain Rare Polymorphonuclear cells 04/05/2025 9:41 PM CDT [facility] Gram Stain No organisms seen 025 9:41 PM CDT [facility] Microbiology BONE BIOPSY SPECIMEN / Unknown Collection / Unknown 04/02/2025 4:19 PM CDT 04/02/2025 8:19 PM CDT Oseas Burton MD LAB - MICROBIOLOGY ORDERABLES Final Result [facility] [address] [place] [address], [facility] [phone] * CULTURE FLUID+GRAM STAIN (04/02/2025 4:19 PM CDT) Culture No growth KHUSHBU 04/05/2025 9:03 PM CDT [facility] Gram Stain No organisms seen 025 9:03 PM CDT [facility] Gram Stain No polymorphonuclear cells 04/05/2025 9:03 PM CDT [facility] Fluid BODY FLUID SPECIMEN / Unknown Collection / Unknown 04/02/2025 4:19 PM CDT 04/02/2025 4:30 PM CDT Narrative [facility] - 04/05/2025 9:03 PM CDT IR FLUID. us Oseas Burton MD LAB - MICROBIOLOGY ORDERABLES Final Result Performing Organization Address City/[facility]/ZIP Co de Phone Number [facility] [address] [place] [address], [facility] [phone] * CULTURE ANAEROBE (04/02/2025 4:19 PM CDT) Culture No anaerobic organisms isolated KHUSHBU 04/07/2025 12:42 PM CDT [facility] Microbiology BODY FLUID SPECIMEN / Unknown Collection / Unknown 04/02/2025 4:19 PM CDT 04/02/2025 4:30 PM CDT us Oseas Burton MD LAB - MICROBIOLOGY ORDERABLES Final Result Performing Organization Address [facility] Co de Phone Number [facility] [address] [place] [address], [facility] [phone] * ETT LINE PERFORMABLE (04/02/2025 3:55 PM CDT) Narrative Edmund Rashid CAA - 04/02/2025 3:55 PM CDT Edmund Rashid CAA 04/02/2025 3:56 PM Endotracheal Tube Placement: Patient Location: Other - please comment (CT/IR). Intubation Event Date/Time: 04/02/2025 3:12 PM Procedure: intubation (80179) Procedure Section: Sedation: under general anesthesia. Indications for Airway Management: anesthesia Induction: standard IV Patient Position: sniffing Mask Ventilation: easy with oral airway. Blade Type: Video (CMAC-MAC 4 Blade) Blade Size: 4 Laryngoscopy View: grade 1 (full cords) Intubation Adjuncts: cricoid pressure, stylet and video laryngoscope Tube: endotracheal tube Placement: oral Tube type: cuff - inflated Tube Size (MM): 8 Depth of Insertion (CM): 23 Measured From: teeth Cuff Inflated With: air Number of Attempts: 1. Placement Verified By: direct visualization, bilateral breath sounds, chest auscultation and CO2 monitor Tube secured with: adhesive tape. Dentition unchanged? Yes Difficult Airway? No. Procedure Start Time: 04/02/2025 3:12 PM. Staff Section Anesthesia Provider: Edmund Rashid CAA, Performed the procedure Provider #1: Florentin Poon MD. Florentin Poon MD GENERAL ANESTHESIA ORDERABLES Fi nal Result * CT Chest Wo Contrast (04/01/2025 12:06 PM CDT) Anatomical Region Laterality Modality Chest Computed Tomogra phy 04/01/2025 1:45 PM CDT Impressions 04/01/2025 2:21 PM CDT Impression: 1.Small bilateral pleural effusion with associated atelectasis of adjacent lung parenchyma. 2.6.5 cm right thyroid gland nodule. Nonemergent thyroid ultrasound recommended. > Dictated by Dilan Zuñiga MD, (rn radiology). > Dictated by Mri Ct Tech I, Nicolás Dye MD have personally reviewed and interpreted this examination/study. > Interpreting Provider: Nicolás Dye MD on 04/01/2025 2:21 PM Narrative 04/01/2025 2:21 PM CDT PROCEDURE: CT CHEST WO CONTRAST, DATE/TIME OF EXAM: 04/01/2025 12:07 PM, LOCATION [facility] INDICATION: M46.26: Osteomyelitis of lumbar spine (HCC) ADDITIONAL CLINICAL INFORMATION: Ordering Provider Reason For Exam: ahrf COMPARISON: None. TECHNIQUE: CT of the chest was performed without contrast according to standard protocol. Findings: Evaluation of visceral and vascular structures is degraded due to lack of intravenous contrast administration. Lower Neck and Axillae: A 6.5 cm right thyroid gland nodule containing calcifications. Lungs: Small bilateral pleural effusion with associated atelectasis. A few calcified granulomas in the right lung. No suspicious pulmonary nodules are identified. No pleural fluid or pneumothorax is present. Heart and Pericardium: Cardiomegaly. Coronary arteries are atherosclerotic. No pericardial effusion. Mediastinum and Babita: Multiple calcified and noncalcified mediastinal and hilar lymph nodes, the largest one measuring 2 cm short axis in the right lower paratracheal region, likely related to sequela of granulomatous disease. Thoracic Vasculature: The aorta and its branch vessels are atherosclerotic. The main pulmonary artery diameter measuring 4.1 cm. Bones and Chest Wall: Bone windows demonstrate no suspicious lytic or blastic lesions. The visible osseous structures are intact. Degenerative changes are seen in the spine. Upper Abdomen: Multiple calcified granulomas in the spleen. Thickening of the left adrenal gland. Procedure Note Nicolás Dye MD - 04/01/2025 PROCEDURE: CT CHEST WO CONTRAST, DATE/TIME OF EXAM: 04/01/2025 12:07PM, LOCATION [facility] INDICATION: M46.26: Osteomyelitis of lumbar spine (HCC) ADDITIONAL CLINICAL INFORMATION: Ordering Provider Reason For Exam: ahrf COMPARISON: None. TECHNIQUE: CT of the chest was performed without contrast according to standard protocol. Findings: Evaluation of visceral and vascular structures is degraded due to lackof intravenous contrast administration. Lower Neck and Axillae: A 6.5 cm right thyroid gland nodule containing calcifications. Lungs: Small bilateral pleural effusion with associated atelectasis. A few calcified granulomas in the right lung. No suspicious pulmonary nodulesare identified. No pleural fluid or pneumothorax is present. Heart and Pericardium: Cardiomegaly. Coronary arteries are atherosclerotic. No pericardial effusion. Mediastinum and Babita: Multiple calcified and noncalcified mediastinal and hilar lymph nodes,the largest one measuring 2 cm short axis in the right lower paratracheal region, likely related to sequela of granulomatous disease. Thoracic Vasculature: The aorta and its branch vessels are atherosclerotic. The main pulmonary artery diameter measuring 4.1 cm. Bones and Chest Wall: Bone windows demonstrate no suspicious lytic or blastic lesions. The visible osseous structures are intact. Degenerative changes are seen inthe spine. Upper Abdomen: Multiple calcified granulomas in the spleen. Thickening of the leftadrenal gland. Impression: 1.Small bilateral pleural effusion with associated atelectasis ofadjacent lung parenchyma. 2.6.5 cm right thyroid gland nodule. Nonemergent thyroid ultrasound recommended. > Dictated by Dilan Zuñiga MD, (rn radiology). > Dictated by Mri Ct Tech I, Nicolás Dye MD have personally reviewed and interpreted this examination/study. > Interpreting Provider: Nicolás Dye MD on 52:21 PM Oseas Burton MD CT ORDERABLES Final Result * XR Chest 2Vw (03/31/2025 4:20 PM CDT) Anatomical Region Laterality Modality Chest Digital Radiogra phy 04/01/2025 2:25 AM CDT Impressions 04/01/2025 2:26 AM CDT IMPRESSION: No acute cardiopulmonary abnormalities. > Interpreting Provider: Arben Maloney MD on 04/01/2025 2:26 AM Narrative 04/01/2025 2:26 AM CDT PROCEDURE: XR CHEST 2VW DATE/TIME OF EXAM: 03/31/2025 4:20 PM CLINICAL INFORMATION: None relevant/not provided if blank. Indication: M46.26: Osteomyelitis of lumbar spine (HCC) Additional History: COMPARISON: 01/12/2020, XR CHEST 2VW . FINDINGS: Frontal and lateral views of the chest demonstrate a normal sized heart and pulmonary vasculature. No focal consolidation, pleural effusion or pneumothorax. No acute osseous abnormalities. Procedure Note Arben Maloney MD - 04/01/2025 PROCEDURE: XR CHEST 2VW DATE/TIME OF EXAM: 03/31/2025 4:20 PM CLINICAL INFORMATION: None relevant/not provided if blank. Indication: M46.26: Osteomyelitis of lumbar spine (HCC) Additional History: COMPARISON: 01/12/2020, XR CHEST 2VW . FINDINGS: Frontal and lateral views of the chest demonstrate a normal sized heartand pulmonary vasculature. No focal consolidation, pleural effusion or pneumothorax. No acute osseous abnormalities. IMPRESSION: No acute cardiopulmonary abnormalities. > Interpreting Provider: Arben Maloney MD on 04/01/2025 2:26 AM Oseas Burton MD DIAGNOSTIC IMAGING ORDERABLES Final Result * HEPATITIS C AB SCREEN RFLX NAAT QUANT (03/31/2025 6:59 AM CDT) Hepatitis C Antibody Non-react boogie Non-reac tive 03/31/2025 8:02 AM CDT [facility] Comment:Hepatitis C Antibody screen indicates no serologic evidence of past or current infection with Hepatitis C Virus. Patients with unexplained liver disease who are immunocompromised or suspected of having acute Hepatitis C infection may benefit from Nucleic Acid Test ([facility]) for Hepatitis C Viral RNA to confirm Hepatitis C status. Blood BLOOD SPECIMEN / Unknown Lab Venipuncture / Unknown 03/31/2025 6:59 AM CDT 03/31/2025 7:06 AM CDT Oseas Burton MD LAB - CHEMISTRY ORDERABLES Fi nal Result Performing Organization Address [facility]/ZIP Co de Phone Number [address] [address], [place] [phone] * HIV-1 HIV-2 ANTIBODY + HIV P24 AG PANEL (03/31/2025 6:59 AM CDT) Pathologist [facility] HIV Antigen/Antibod y 1 & 2 Non-reacti ve Non-react boogie 03/31/2025 8:02 AM CDT [facility] Comment:No Laboratory eviden ce of HIV infection. Blood BLOOD SPECIMEN / Unknown Lab Venipuncture / Unknown 03/31/2025 6:59 AM CDT 03/31/2025 7:06 AM CDT Oseas Burton MD LAB - CHEMISTRY ORDERABLES nal Result Performing Organization Address [facility] de Phone Number [address] [address], [place] [phone] * EKG 12-Lead (03/31/2025 6:58 AM CDT) [facility] Ventricular Rate 72 BPM [facility] QRS Duration ms 122 ms [facility] Q-T Interval ms 446 ms [facility] QTC Calculation (Bezet) 488 ms [facility] Calculated R [place] -58 degrees [facility] Calculated T [place] 35 degrees [facility] Interpretation EKG ATRIAL FIBRILLATION LEFT ANTERIOR FASCICULAR BLOCK NONSPECIFIC ST AND T WAVE ABNORMALITY ABNORMAL ECG Confirmed by MD MARILYN, KWASI ([id number]) on 03/31/2025 2:14:53 PM [facility] 03/31/2025 6:58 AM CDT 03/31/2025 2:14 PM CDT Oseas Burtno MD ECG ORDERABLES Edited Result - Final Performing Organization Address City/State/[facility] Co de Phone Number H MUSE * CT US Guided Needle Placement (03/30/2025 4:29 PM CDT) Anatomical Region Laterality Modality Chest, Abdomen Computed Tomogra phy 03/31/2025 3:31 PM CDT Impressions 03/31/2025 3:37 PM CDT Impression: Patient could not be positioned for biopsy, so procedure was aborted. I, Dr. Benny Perez MD, was present and performed/supervised the entire procedure. > Interpreting Provider: Benny Perez MD on 03/31/2025 3:37 PM Narrative 03/31/2025 3:37 PM CDT Procedure: CT US GUIDED NEEDLE PLACEMENT, Date/time of exam: 03/30/2025 4:30 PM, Location: [facility] Indication: M46.26: Osteomyelitis of lumbar spine (HCC) Operators: 1.Dr. Perez, Attending Physician Anesthesia: 1.None Procedure: 1.Attempted CT-guided core biopsy of vertebral body. Procedure in detail: The procedure, risks, and possible complications were explained to the patient in detail, and informed consent was obtained. The patient was placed in a supine position on the CT table, however the patient could not tolerated it due to discomfort and breathing problems. The patient was then placed at an angle, left side down. In this position, the arms could not fit in the gantry and they could not be brought over the head due to shoulder pain. Despite several attempts at repositioning, the arms still did not fit in the gantry. Additionally, the patient started to become hypoxic, so the procedure was stopped. Procedure Note Benny Perez MD - 03/31/2025 Procedure: CT US GUIDED NEEDLE PLACEMENT, Date/time of exam: 03/30/2025 4:30 PM, Location: [facility] Indication: M46.26: Osteomyelitis of lumbar spine (HCC) Operators: 1.Dr. Perez, Attending Physician Anesthesia: 1.None Procedure: 1.Attempted CT-guided core biopsy of vertebral body. Procedure in detail: The procedure, risks, and possible complications were explained to the patient in detail, and informed consent was obtained. The patient was placed in a supine position on the CT table, however the patient couldnot tolerated it due to discomfort and breathing problems. The patient wasthen placed at an angle, left side down. In this position, the arms could not fit in the gantry and they could not be brought over the head due to shoulder pain. Despite several attempts at repositioning, the arms still did not fit in the gantry. Additionally, the patient started to become hypoxic, so the procedure was stopped. Impression: Patient could not be positioned for biopsy, so procedure was aborted. I, Dr. Benny Perez MD, was present and performed/supervised the entire procedure. > Interpreting Provider: Benny Perez MD on 03/31/2025 3:[address] ORDERABLES Final Result * PT-INR (03/30/2025 7:56 AM CDT) PT 14.6 12.1 - 14.8 Seconds 03/30/2025 9:07 AM CDT [facility] INR 1.2 See Comment 03/30/2025 9:07 AM CDT [facility] Comment:The suggested therap eutic range for standard coumadin (warfarin) therapy is an INR of 2.0-3.0. For high-risk patients (Mechanical Mitral Valve Prosthesis, etc.), the suggested prophylactic therapeutic range is an INR of 2.5-3.5. Blood BLOOD SPECIMEN / Unknown Lab Venipuncture / Unknown 03/30/2025 7:56 AM CDT 03/30/2025 8:12 AM CDT Victorino Kim PA-C LAB - COAGULATION ORDERA BLES Final Result [facility] [address] [place] [id number], [facility] [phone] * CULTURE BLOOD (03/28/2025 4:49 AM CDT) Culture No growth day 5 [facility] 04/02/2025 11:00 AM CDT [facility] Blood PERIPHERAL BLOOD / Unknown Lab Venipuncture / Unknown 03/28/2025 4:49 AM CDT 03/28/2025 6:02 AM CDT Cristhian Cruz MD LAB - MICROBIOLOGY ORDERABLE S Final Result [facility] [address] [place] [address], [facility] [phone] * (ABNORMAL) C-REACTIVE PROTEIN (03/27/2025 6:02 AM CDT) Pathologist [facility] C-Reactive Protein 3.9(H) <=0.5 mg/dL 03/27/2025 7:50 AM CDT [facility] Blood BLOOD SPECIMEN / Unknown Lab Venipuncture / Unknown 03/27/2025 6:02 AM CDT 03/27/2025 7:20 AM CDT Cristhian Cruz MD LAB - CHEMISTRY ORDERABLES F inal Result Performing Organization Address [facility]/ZIP Co de Phone Number [address] [address], [facility] [phone] * (ABNORMAL) ERYTHROCYTE SEDIMENTATION RATE (03/27/2025 3:11 AM CDT) [facility] Erythrocyte Sedimentation Rate Westergren 49(H) 0 - 20 MM/HR 03/27/2025 7:34 AM CDT [facility] Blood BLOOD SPECIMEN / Unknown Lab Venipuncture / Unknown 03/27/2025 3:11 AM CDT 03/27/2025 7:03 AM CDT Cristhian Cruz MD LAB - HEMATOLOGY ORDERABLES Final Result Performing Organization Address [facility]/ZIP Co de Phone Number [address] [address], [facility] [phone] * (ABNORMAL) CBC W AUTO DIFFERENTIAL (03/26/2025 3:23 AM CDT) Pathologist [facility] WBC 5.6 4.0 - 10.7 x10E9/L 03/26/2025 4:[facility] RBC Count 4.15(L) 4.30 - 5.80 x10E12/L 03/26/2025 4:25 AM [facility] Hemoglobin 12.9(L) 13.3 - 17.5 g/dL 03/26/2025 4:25 AM [facility] Hematocrit 40.2 38.7 - 51.1 % 03/26/2025 4:25 AM [facility] MCV 96.9 80.0 - 98.0 fL 03/26/2025 4:25 AM [facility] MCH 31.1 26.7 - 33.6 pg 03/26/2025 4:25 AM [facility] MCHC 32.1 31.7 - 36.3 g/dL 03/26/2025 4:25 AM [facility] RDW-CV 14.3 11.3 - 14.8 % 03/26/2025 4:25 AM [facility] Platelet Count 171 150 - 420 x10E9/L 03/26/2025 4:25 AM [facility] MPV 10.6 7.8 - 11.4 fL 03/26/2025 4:25 AM [facility] Neutrophil % 70.7 41.0 - 74.0 % 03/26/2025 4:25 AM [facility] Lymphocyte % 12.9(L) 17.0 - 47.0 % 03/26/2025 4:25 AM [facility] Monocyte % 11.8(H) 3.0 - 11.0 % 03/26/2025 4:25 AM [facility] Eosinophil % 3.4 0.0 - 7.0 % 03/26/2025 4:25 AM [facility] Basophil % 0.7 0.0 - 1.6 % 03/26/2025 4:25 AM [facility] Immature Granulocytes % 0.5 0.0 - 1.0 % 03/26/2025 4:25 AM [facility] Neutrophil Absolute 3.93 1.60 - 7.50 x10E9/L 03/26/2025 4:25 AM [facility] Lymphocyte Absolute 0.72(L) 1.00 - 4.40 x10E9/L 03/26/2025 4:25 AM [facility] Monocyte Absolute 0.66 0.15 - 1.00 x10E9/L 03/26/2025 4:25 AM [facility] Eosinophil Absolute 0.19 0.00 - 0.60 x10E9/L 03/26/2025 4:25 AM [facility] Basophil Absolute 0.04 0.00 - 0.13 x10E9/L 03/26/2025 4:25 AM [facility] Blood BLOOD SPECIMEN / Unknown Lab Venipuncture / Unknown 03/26/2025 3:23 AM CDT 03/26/2025 4:14 AM T us Jeny Flores DO LAB - HEMATOLOGY ORDERABLES Fi nal Result Performing Organization Address City/State/[facility] Co de Phone Number [address] [address], [facility] [phone] * (ABNORMAL) COMPREHENSIVE METABOLIC PANEL (03/26/2025 3:23 AM CDT) BUN 22 7 - 26 mg/dL 03/26/2025 4:43 AM [facility] Creatinine 1.21(H) 0.71 - 1.16 mg/dL 03/26/2025 4:43 AM [facility] Sodium 139 136 - 145 mmol/L 03/26/2025 4:43 AM [facility] Potassium 4.4 3.5 - 4.5 mmol/L 03/26/2025 4:43 AM [facility] Chloride 106 98 - 107 mmol/L 03/26/2025 4:43 AM [facility] CO2 21(L) 22 - 29 mmol/L 03/26/2025 4:43 AM [facility] Glucose 139(H) 70 - 99 mg/dL 03/26/2025 4:43 AM [facility] Calcium 8.8 8.4 - 10.2 mg/dL 03/26/2025 4:43 AM [facility] Protein Total 5.5(L) 6.0 - 8.3 g/dL 03/26/2025 4:43 AM [facility] Albumin 2.8(L) 3.4 - 5.0 g/dL 03/26/2025 4:43 AM [facility] Bilirubin Total 0.6 0.2 - 1.2 mg/dL 03/26/2025 4:43 AM [facility] Alkaline Phosphatase 74 40 - 150 U/L 03/26/2025 4:43 AM [facility] ALT 21 5 - 55 U/L 03/26/2025 4:43 AM [facility] AST 12 5 - 34 U/L 03/26/2025 4:43 AM [facility] Anion Gap 12 6 - 16 03/26/2025 4:43 AM [facility] BUN/Creatinine Ratio 18 7 - 23 03/26/2025 4:43 AM [facility] Osmolality Calculated 294 275 - 295 mOsm/kg 03/26/2025 4:43 AM [facility] Albumin/Globulin Ratio 1.0(L) 1.1 - 2.3 03/26/2025 4:43 AM [facility] eGFR by CKD-EPI 61(L) >=90 mL/min/1.7 3 m2 03/26/2025 4:43 AM [facility] Comment:Estimated Glomerular Filtration Rate (eGFR) calculated using the CKD-EPI Creatinine Equation (2020), per the National Kid[employer] and [place] [employer] recommendations. Blood BLOOD SPECIMEN / Unknown Lab Venipuncture / Unknown 03/26/2025 3:23 AM CDT 03/26/2025 4:15 AM CDT us Jeny Flores DO LAB - CHEMISTRY ORDERABLES Fin al Result [facility] [address] [place] [address], [facility] [phone] * (ABNORMAL) MICROALB/CREAT RATIO URINE RANDOM PANEL [...] - 12/23/2024 1:09 PM CDT Performed at: - [address] [id number] Panel Cutter: Peyman Lilly PhD, Phone: [phone] Karthikeyanabel Farmer MD LAB - URINE CHEM ISTRY ORDERABLES Final Result Performing Organization Address [facility] Co de Phone Number [facility] INSURANCE BILL [address] [place] [address] * (ABNORMAL) HEMOGLOBIN A1C (EXTERNAL RESULT ENTRY) (06/17/2021) [facility] Hemoglobin A1c (EXTERNAL RESULT) 7.3(A) 4.8 - 5.6 % [facility] INSURANCE BILL Blood BLOOD SPECIMEN / Unknown 06/17/2021 Historical Provider LAB - CHEMISTRY ORDERABLE S Final Result Performing Organization Address [facility] de Phone Number [facility] INSURANCE BILL [address] [place] [address] from Last 3 Months or Most Recently Relevant to Health Maintenance Insurance AETNA AETNA AETNA MEDICARE [facility] Advance Directives * Full Code (Latest Code Status on File) Date Activated Date Inactivated Comments 03/26/2025 12:15 AM 04/10/2025 1:37 PM * Full Code Date Activated Date Inactivated Comments 02/27/2019 3:26 PM 03/01/2019 6:53 PM * Full Code Date Activated Date Inactivated Comments 02/27/2019 6:49 AM 02/27/2019 3:26 PM Care Teams Waste Baler Relationship Specialty Start Date End Date Shagufta Khan MD [address] [place] [address] PCP - General Family Medicine 09/26/23
--- OUTSIDE RECORDS SUMMARY | 2025-04-18 16:46 | XMS_ITS | Clinical Summary ---
Author Organization [facility] [address] Address [address] [place] [address] Care Team Providers Care Account Receivable Associate Name Role Phone Shagufta Khan MD Primary Care Provider [phone] Allergies Active Allergy Reactions Criticality Noted Date [...] 0 7 Active pravastatin (PRAVACHOL) 20 mg tabletIndication s:hyperlipidemia [...] 2 (two) times a day 4 Active sacubitriL-valsa rtan (ENTRESTO) 24-26 mg tabletIndication [...] mg total) by mouth daily 5 02/24/20 26 Active levETIRAcetam (KEPPRA) 500 mg tablet Take 1 tablet (500 mg total) by mouth 2 (two) times a day for 8 doses 5 Active miconazole 2 % powder Apply topically 2 (two) times a day 5 Active polyethylene glycol (MIRALAX) 17 gram/dose bulk powderIndication s:constipation Take 17 g by mouth daily for 14 days 5 Active metFORMIN XR (GLUCOPHAGE XR) 500 mg 24 hr tablet Take 2 tablets (1,000 mg total) by mouth 2 (two) times a day 5 Active Active Problems Problem Noted Date [...] flutter Assessment & Plan (10/06/2021 9:53 AM HARD METALS ENGRAVER HAND): With symptoms of exertional dyspnea/exercise intolerance, attempted [...] 09/18/2019 Assessment & Plan (10/06/2021 9:52 AM HARD METALS ENGRAVER HAND): Hx of diastolic dysfunction, mild leg swelling at baseline (also in setting of BMi 47, HTN) -Continue home telmisartan 80 mg every day, metoprol 150 mg BID, amlodipine 10 qdaily, chlorthalidone 25 qdaily and hydralazine at dc 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 12/28/2017 Assessment & Plan (02/20/2025 4:48 PM CDT): - Home statin continued Assessment & Plan (10/06/2021 9:51 AM HARD METALS ENGRAVER HAND): -Continue home metoprolol/statin/telmisartan Morbid obesity with BMI of 45.0-49.9, adult 06/14 Disease of thyroid gland 01/02/2017 Overview (01/05/2017): Enlarged thyroid Diffuse goiter 01/02/2017 Overview (01/05/2017): Goiter diffuse Body mass index 40+ - severely obese 06/27/2016 Overview (11/17/2016): Morbid obesity with BMI of 45.0-49.9, adult Mixed diabetic hyperlipidemi a associated with type 2 diabetes mellitus ([facility]) 06/27/2016 Overview (11/17/2016): 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 ([facility]) 01/04/2016 Overview (11/17/2016): DM (diabetes mellitus), secondary, with neurologic complications Assessment & Plan (02/24/2025 1:32 PM CDT): - On Metformin, januvia, glimiepride at home - A1C 5.8 - SSI, accu-checks while inpatient - CC diet - Follow Up PCP Assessment & Plan (10/06/2021 9:50 AM HARD METALS ENGRAVER HAND): -Continue home januvia 100 qS, metformin 1G BID, glimepiride at discharge ANTONIO on CPAP 07/06/2015 Overview (11/17/2016): ANTONIO on CPAP Assessment & Plan (02/23/2025 9:32 AM CDT): - CPAP ordered Assessment & Plan (10/06/2021 9:51 AM HARD METALS ENGRAVER HAND): -Use CPAP while sleeping Hypertensive heart disease [...] Encounters Date Type Department Care Team Description 03/25/[address] [address] Fabby Khoury MD Transfer Notification 03/25/2025 Documentation Internal Medicine Patti Harris MD 02/26/[address] [facility] Medicine Neurosurgery [address] [place] [id number] Cony Zimmer MD 02/19/2025 6:32 PM CDT - 02/25/2025 2:15 PM CDT Hospital Encounter [address] [address] Adrian Pizarro MD KiFroylan carlosannah Olena, Fall, initial encounter (Primary Dx); Head injury, initial encounter; Subdural hematoma (HCC); Traumatic subdural hemorrhage without open intracranial wound and without loss of consciousness, initial encounter (HCC); Closed fracture of cervical vertebra, unspecified cervical vertebral level, initial encounter (HCC); Scalp laceration, initial encounter Discharge Disposition: Discharge to an Rehab facility 02/10/2025 Telephone [facility] Cardiology [address] [place] [address] Tone Cummins MD 02/05/2025 11:30 AM CDT Office Visit 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 [employer] Not on file Not on file Not [...] PCV21) 05/03/2021 05/03/2016, 08/13/2015, 05/19/2010 Covid-19 Vaccine (4 - 2023-2 5 season) 2024 06/09/2021, 11/01/2020, 09/30/2020 Influenza Vaccine (#1) 2025 , 03/31/2021, 04/28/2020, Additional history exists Hemoglobin A1C 2025 02/20/2025 Lipid Panel 02/19/2026 02/19/2025, 06/13, 03/03/2024, Additional history exists eGFR 02/22/2026 02/22/2025, 02/10, 02/20/2025, Additional history exists Fall Risk Assessment 02/25/2026 02/25/2025 Hepatitis C Screening Completed 04/27/2023 Medical Devices Implanted Type Area It Architecture Consultant Device Identifier Shelf Expiration Date Model / Serial / Lot Vascade Mvp 6-12fr Venous Closure - [id number] Implanted:Qty: 1 on 10/05/2021 by Luis Tran MD at [facility] Collagen Right: Femoral [employer] 06/27/2023 800-612C -[id number] / / [id number] Description:vein Vascade Mvp 6-12fr Venous Closure - [id number] - [id number] Implanted:Qty: 1 on 10/05/2021 by Luis Tran MD at [facility] Collagen Left: Femoral [employer] 06/27/2023 800-612C -[id number] / [id number] / [id number] Description:vein Vascade Mvp 6-12fr Venous Closure - [id number] Implanted:Qty: 1 on 10/05/2021 by Luis Tran MD at [facility] Collagen Right: Femoral [employer] 06/27/2023 800-612C -[id number] / / [id number] Description:vein Other - See Comments Other - see comments Knee Description:Bilateral knee r eplacements Other - See Comments Other - see comments Left: Knee Other - See Comments Other - see comments Right: Knee Procedures Procedure Name Priority Date/Time Associated Diagnosis Comments POCT GLUCOSE DEVICE Routine 02/25/2025 1 1:18 AM CDT [place] SUT[place] NOT REQUIRING ANESTHESIA Routine 02/25/2025 [...] DEVICE Routine 02/19/2025 9 :45 PM CDT [place] CRITICAL CARE ILL/INJURED PATIENT INIT 30-74 MIN [...] 6:43 PM CDT HEPATITIS PANEL, ACUTE Routine 3 11:14 AM CDT Interstitial pulmonary disease (HCC) from Last 3 Months or Most Recently Relevant to Health Maintenance Results * POCT glucose (02/25/2025 11:18 AM CDT) [facility] Glucose, POC 194 70 - 199 mg/dL Blood 02/25/2025 11:1 8 AM CDT 02/25/2025 11:18 AM CDT Ellyn Gomez DO LAB POCT ORDERABLES - DEVICE Final Result [facility] [place] [address] * [place] REMOV[place] SUT[place] NOT REQUIRING ANESTHESIA (02/25/2025 10:30 [...] 7:28 AM CDT 02/25/2025 7:28 AM CDT Ellyn Gomez DO LAB POCT ORDERABLES - DEVICE Final Result Performing Organization Address City/[facility]/ZIP Co de Phone Number COLETTE YAN [facility] [place] [address] * POCT glucose (02/24/2025 8:08 PM CDT) Glucose, POC 197 70 - 199 mg/dL Blood 02/24/2025 8:08 PM CDT 02/24/2025 8:08 PM CDT [facility]lyn [facility]a [facility] DO LAB POCT ORDERABLES - DEVICE Final Result Performing Organization Address City/[facility] [place] [address] * POCT glucose (02/24/2025 5:33 PM CDT) Glucose, POC 137 70 - 199 mg/dL Blood 02/24/2025 5:33 PM CDT 02/24/2025 5:33 PM CDT [facility] Net[facility]eluis enriquebreanna DO LAB POCT ORDERABLES - DEVICE Final Result Performing Organization Address [facility] [place] [address] * POCT glucose (02/24/2025 11:21 AM CDT) Glucose, POC 179 70 - 199 mg/dL Blood 02/24/2025 11:2 1 AM CDT 02/24/2025 11:21 AM CDT Ellyn Loena [facility] DO LAB POCT ORDERABLES - DEVICE Final Result Performing Organization Address [facility] [place] [address] * XR Spine Cervical Flexion and Extension [...] signed by: Micheal Campbell M.D. Reema Kemp MICROBIOLOGY DIRECTOR IMG XR PROCEDURES Final R esult * POCT glucose (02/24/2025 7:42 AM CDT) Glucose, POC 128 70 - 199 mg/dL Blood 02/24/2025 7:42 AM CDT 02/24/2025 7:42 AM CDT [facility] Olena [facility] DO [facility] POCT ORDERABLES - DEVICE Final Result Performing Organization Address [facility] Co de Phone Number [facility] [place] [address] * POCT glucose (02/23/2025 8:53 PM CDT) Glucose, POC 152 70 - 199 mg/dL Blood 02/23/2025 8:53 PM CDT 02/23/2025 8:53 PM CDT [facility] POCT ORDERABLES - DEVICE Final Result Performing Organization Address [facility] de Phone Number [facility] [place] [address] * POCT glucose (02/23/2025 6:06 PM CDT) Glucose, POC 168 70 - 199 mg/dL Comment:Glu2: Follow Protoco l Blood 02/23/2025 6:06 PM CDT 02/23/2025 6:06 PM CDT [facility] Olena [facility]uis [facility] DO [facility] POCT ORDERABLES - DEVICE Final Result Performing Organization Address [facility] Co de Phone Number [facility] [place] [address] * POCT glucose (02/23/2025 12:34 PM CDT) Glucose, POC 123 70 - 199 mg/dL Comment:Glu2: RN/MD Notified Glucose comment 1 Glu2: RN/MD Notified [facility] Blood 02/23/2025 12:3 4 PM CDT 02/23/2025 12:34 PM CDT Ellyn Gomez DO LAB POCT ORDERABLES - DEVICE Final Result Performing Organization Address City/[facility] Co de Phone Number [facility] [place] [address] * POCT glucose (02/23/2025 8:32 AM CDT) Glucose, POC 125 70 - 199 mg/dL Comment:Glu2: RN/MD Notified Glucose comment 1 Glu2: RN/MD Notified [facility] Blood 02/23/2025 8:32 AM CDT 02/23/2025 8:32 AM CDT Ellyn Gomez LAB POCT ORDERABLES - DEVICE Final Result Performing Organization Address [facility] [place] [address] * POCT glucose (02/23/2025 4:24 AM CDT) Glucose, POC 114 70 - 199 mg/dL Blood 02/23/2025 4:24 AM CDT 02/23/2025 4:24 AM CDT Ellyn Olena [facility] DO LAB POCT ORDERABLES - DEVICE Final Result Performing Organization Address City/[facility] Co de Phone Number [facility] [place] [address] * POCT glucose (02/22/2025 11:22 PM CDT) Glucose, POC 119 70 - 199 mg/dL Blood 02/22/2025 11:2 2 PM CDT 02/22/2025 11:22 PM CDT Ellyn Olena [facility] DO LAB POCT ORDERABLES - DEVICE Final Result Performing Organization Address City/[facility]/ZIP Co de Phone Number COLETTE [facility] [place] [address] * (ABNORMAL) eGFR (02/22/2025 9:32 PM CDT) [...] PM CDT 02/22/2025 11:49 PM CDT Ellyn Olena Marvluis enriquebreanna DO LAB BLOOD ORDERABLE S Final Result Performing Organization Address City/[facility]/ZIP Co de Phone Number COLETTE [facility] Department [place] [address] * (ABNORMAL) Differential, auto (02/22/2025 9:32 PM CDT) Neutrophil abs 4.00 1.50 - 6.50 K/cumm Imm gran abs 0.02 0.00 - 0.10 K/cumm [facility] Lymphocyte abs 0.50(L) 0.80 - 3.30 K/cumm [facility] Monocyte abs 0.56 0.20 - 0.80 K/cumm [facility] Eosinophil abs 0.09 0.00 - 0.50 K/cumm [facility] Basophil abs 0.02 0.00 - 0.10 K/cumm [facility] Neutrophil pct 77.1 % [facility] Comment: Interpretive Data Percent cell count reference ranges are not reported, since discordance with absolute values may lead to misinterpretation of CBC data. Current Interpretive Data was last revised on 2017. Imm gran pct 0.4 % [facility] Comment: Interpretive Data Percent cell count reference ranges are not reported, since discordance with absolute values may lead to misinterpretation of CBC data. Current Interpretive Data was last revised on 2017. Lymphocyte pct 9.6 % [facility] Comment: Interpretive Data Percent cell count reference ranges are not reported, since discordance with absolute values may lead to misinterpretation of CBC data. Current Interpretive Data was last revised on 2017. Monocyte pct 10.8 % [facility] Comment: Interpretive Data Percent cell count reference ranges are not reported, since discordance with absolute values may lead to misinterpretation of CBC data. Current Interpretive Data was last revised on 2017. Eosinophil pct 1.7 % [facility] Comment: Interpretive Data Percent cell count reference ranges are not reported, since discordance with absolute values may lead to misinterpretation of CBC data. Current Interpretive Data was last revised on 2017. Basophil pct 0.4 % [facility] Comment: Interpretive Data Percent cell count reference ranges are not reported, since discordance with absolute values may lead to misinterpretation of CBC data. Current Interpretive Data was last revised on 2017. Blood 02/22/2025 9:32 PM CDT 02/22/2025 10:43 PM CDT [facility] BLOOD ORDERABLE S Final Result Performing Organization Address City/[facility]/ZIP Co de Phone Number [facility] [place] [address] * (ABNORMAL) CBC with auto differential (02/22/2025 9:32 PM CDT) WBC 5.19 3.80 - 9.90 K/cumm Hgb 14.2 13.0 - 17.5 g/dL [facility] Hct 43.9 38.9 - 50.3 % [facility] Plt 176 150 - 400 K/cumm [facility] MPV 10.9 9.1 - 12.3 fL [facility] RBC 4.43 4.30 - 5.80 M/cumm [facility] MCV 99.1(H) 81.3 - 96.4 fL [facility] MCH 32.1 27.1 - 33.3 pg [facility] MCHC 32.3 32.3 - 35.7 g/dL [facility] RDW CV 15.1(H) 11.1 - 14.9 % [facility] RDW SD 55.1(H) 35.7 - 48.1 fL [facility] NRBC abs 0.00 0.00 - 0.01 K/cumm [facility] Blood 02/22/2025 9:32 PM CDT 02/22/2025 10:43 PM CDT Ellyn Olena [facility] BLOOD ORDERABLE S Final Result [facility] [address] [facility] [place] [address] * Phosphorus (02/22/2025 9:32 PM CDT) Pathologist [facility] Phosphorus, pl 3.9 2.3 - 4.5 mg/dL Blood 02/22/2025 9:32 PM CDT 02/22/2025 11:49 PM CDT Ellyn Olena [facility] LAB BLOOD ORDERABLE S Final Result [facility] [place] [address] * Magnesium (02/22/2025 9:32 PM CDT) Pathologist [facility] Magnesium 2.1 1.4 - 2.5 mg/dL Blood 02/22/2025 9:32 PM CDT 02/22/2025 11:49 PM CDT [facility] LAB BLOOD ORDERABLE S Final Result Performing Organization Address [facility] Co de Phone Number [facility] [place] [address] * (ABNORMAL) Basic metabolic panel (02/22/2025 9:32 PM CDT) [facility] Sodium 140 135 - 145 mmol/L Potassium, pl 4.8 3.3 - 4.9 mmol/L [facility] Chloride 104 97 - 110 mmol/L [facility] CO2 26 22 - 32 mmol/L [facility] Anion gap 10 2 - 15 mmol/L [facility] BUN 31(H) 6 - 25 mg/dL [facility] Creatinine 1.66(H) 0.80 - 1.30 mg/dL [facility] Glucose 165 70 - 199 mg/dL [facility] Comment: Interpretive Data Fasting glucose >/= [...] Calcium 9.1 8.5 - 10.3 mg/dL [facility] Blood 02/22/2025 9:32 PM CDT 02/22/2025 11:49 PM CDT [facility] BLOOD ORDERABLE S Final Result Performing Organization Address [facility] Co de Phone Number [facility] [place] [address] * (ABNORMAL) POCT glucose (02/22/2025 8:39 PM CDT) Glucose, POC 245(H) 70 - 199 mg/dL Blood 02/22/2025 8:39 PM CDT 02/22/2025 8:39 PM CDT [facility] POCT ORDERABLES - DEVICE Final Result Performing Organization Address [facility] de Phone Number [facility] [place] [address] * POCT glucose (02/22/2025 5:34 PM CDT) Glucose, POC 141 70 - 199 mg/dL Blood 02/22/2025 5:34 PM CDT 02/22/2025 5:34 PM CDT [facility] POCT ORDERABLES - DEVICE Final Result Performing Organization Address [facility] de Phone Number [facility] [place] [address] * POCT glucose (02/22/2025 11:40 AM CDT) Glucose, POC 137 70 - 199 mg/dL Blood 02/22/2025 11:4 0 AM CDT 02/22/2025 11:40 AM CDT Ellyn Gomez DO LAB POCT ORDERABLES - DEVICE Final Result Performing Organization Address [facility] Co de Phone Number COLETTE [facility] [place] [address] * POCT glucose (02/22/2025 7:53 AM CDT) Glucose, POC 113 70 - 199 mg/dL Blood 02/22/2025 7:53 AM CDT 02/22/2025 7:53 AM CDT Ellyn Olena Gomez DO LAB POCT ORDERABLES - DEVICE Final Result Performing Organization Address [facility] Co de Phone Number [facility] [place] [address] * POCT glucose (02/22/2025 7:06 AM CDT) Glucose, POC 102 70 - 199 mg/dL Blood 02/22/2025 7:06 AM CDT 02/22/2025 7:06 AM CDT Ellyn Gomez DO LAB POCT ORDERABLES - DEVICE Final Result Performing Organization Address [facility] Co de Phone Number [facility] [place] [address] * POCT glucose (02/22/2025 6:30 AM CDT) Glucose, POC 101 70 - 199 mg/dL Blood 02/22/2025 6:30 AM CDT 02/22/2025 6:30 AM CDT Ellyn Gomez DO LAB POCT ORDERABLES - DEVICE Final Result Performing Organization Address [facility] Co de Phone Number COLETTE [facility] [place] [address] * POCT glucose (02/22/2025 4:31 AM CDT) Glucose, POC 103 70 - 199 mg/dL Blood 02/22/2025 4:31 AM CDT 02/22/2025 4:31 AM CDT Ellyn Gomez DO LAB POCT ORDERABLES - [place] [address] * POCT glucose (02/22/2025 12:03 AM CDT) [facility] Signature Glucose, POC 122 70 - 199 mg/dL Blood 02/22/2025 12:0 3 AM CDT 02/22/2025 12:03 AM CDT Ellyn Olena Gomez LAB POCT ORDERABLES - DEVICE Final Result Performing Organization Address City/[facility] [place] [address] * POCT glucose (02/21/2025 8:32 PM CDT) [facility] Signature Glucose, POC 158 70 - 199 mg/dL Blood 02/21/2025 8:32 PM CDT 02/21/2025 8:32 PM CDT Ellyn Olena [facility]uis [facility] DO LAB POCT ORDERABLES - DEVICE Final Result Performing Organization Address City/[facility] [place] [address] * (ABNORMAL) eGFR (02/21/2025 7:10 PM CDT) [facility] eGFR 39(L) >=60 mL/min/1. 73 m2 Comment: [...] 7:10 PM CDT 02/21/2025 8:39 PM CDT us Ellyn Gomez DO LAB BLOOD ORDERABLE S Final Result [facility] [place] [address] * (ABNORMAL) Differential, auto (02/21/2025 7:10 PM CDT) Pathologist [facility] Neutrophil abs 3.69 1.50 - 6.50 K/cumm Imm gran abs 0.03 0.00 - 0.10 K/cumm [facility] Lymphocyte abs 0.64(L) 0.80 - 3.30 K/cumm [facility] Monocyte abs 0.67 0.20 - 0.80 K/cumm [facility] Eosinophil abs 0.10 0.00 - 0.50 K/cumm [facility] Basophil abs 0.01 0.00 - 0.10 K/cumm [facility] Neutrophil pct 71.8 % [facility] Comment: Interpretive Data Percent cell count reference ranges are not reported, since discordance with absolute values may lead to misinterpretation of CBC data. Current Interpretive Data was last revised on 2017. Imm gran pct 0.6 % [facility] Comment: Interpretive Data Percent cell count reference ranges are not reported, since discordance with absolute values may lead to misinterpretation of CBC data. Current Interpretive Data was last revised on 2017. Lymphocyte pct 12.5 % [facility] Comment: Interpretive Data Percent cell count reference ranges are not reported, since discordance with absolute values may lead to misinterpretation of CBC data. Current Interpretive Data was last revised on 2017. Monocyte pct 13.0 % [facility] Comment: Interpretive Data Percent cell count reference ranges are not reported, since discordance with absolute values may lead to misinterpretation of CBC data. Current Interpretive Data was last revised on 2017. Eosinophil pct 1.9 % [facility] Comment: Interpretive Data Percent cell count reference ranges are not reported, since discordance with absolute values may lead to misinterpretation of CBC data. Current Interpretive Data was last revised on 2017. Basophil pct 0.2 % [facility] Comment: Interpretive Data Percent cell count reference ranges are not reported, since discordance with absolute values may lead to misinterpretation of CBC data. Current Interpretive Data was last revised on 2017. Blood 02/21/2025 7:10 PM CDT 02/21/2025 8:40 PM CDT Ellyn Gomez DO LAB BLOOD ORDERABLE S Final Result [facility] [address] [facility] [place] [address] * (ABNORMAL) CBC with auto differential (02/21/2025 7:10 PM CDT) WBC 5.14 3.80 - 9.90 K/cumm Hgb 12.9(L) 13.0 - 17.5 g/dL [facility] Hct 40.7 38.9 - 50.3 % [facility] Plt 183 150 - 400 K/cumm [facility] [facility] MPV 11.6 9.1 - 12.3 fL [facility] RBC 4.04(L) 4.30 - 5.80 M/cumm [facility] MCV 100.7(H) 81.3 - 96.4 fL [facility] MCH 31.9 27.1 - 33.3 pg [facility] MCHC 31.7(L) 32.3 - 35.7 g/dL [facility] RDW CV 15.4(H) 11.1 - 14.9 % [facility] RDW SD 57.3(H) 35.7 - 48.1 fL [facility] NRBC abs 0.00 0.00 - 0.01 K/cumm [facility] Blood 02/21/2025 7:10 PM CDT 02/21/2025 8:40 PM CDT [facility] LAB BLOOD ORDERABLE S Final Result [facility] [place] [address] * Phosphorus (02/21/2025 7:10 PM CDT) Phosphorus, pl 4.0 2.3 - 4.5 mg/dL Blood 02/21/2025 7:10 PM CDT 02/21/2025 8:39 PM CDT [facility] LAB BLOOD ORDERABLE S Final Result [facility] [place] [address] * Magnesium (02/21/2025 7:10 PM CDT) Magnesium 1.7 1.4 - 2.5 mg/dL Blood 02/21/2025 7:10 PM CDT 02/21/2025 8:39 PM CDT Ellyn Fairluis enriquebreanna LAB BLOOD ORDERABLE S Final Result [facility] [place] [address] * (ABNORMAL) Basic metabolic panel (02/21/2025 7:10 PM CDT) Sodium 141 135 - 145 mmol/L Potassium, pl 4.5 3.3 - 4.9 mmol/L [facility] Chloride 106 97 - 110 mmol/L [facility] CO2 25 22 - 32 mmol/L [facility] Anion gap 10 2 - 15 mmol/L [facility] BUN 29(H) 6 - 25 mg/dL [facility] Creatinine 1.76(H) 0.80 - 1.30 mg/dL [facility] Glucose 159 70 - 199 mg/dL [facility] Comment: Interpretive Data Fasting glucose >/= [...] Calcium 9.0 8.5 - 10.3 mg/dL [facility] Blood 02/21/2025 7:10 PM CDT 02/21/2025 8:39 PM CDT Ellyn Fairluis enriquebreanna [facility] LAB BLOOD ORDERABLE S Final Result [facility] [place] [address] * POCT glucose (02/21/2025 4:44 PM CDT) Glucose, POC 119 70 - 199 mg/dL Blood 02/21/2025 4:44 PM CDT 02/21/2025 4:44 PM CDT [facility] PO[facility] ORDERABLES - DEVICE Final Result Performing Organization Address [facility] de Phone Number [facility] [place] [address] * POCT glucose (02/21/2025 12:11 PM CDT) Glucose, POC 162 70 - 199 mg/dL Blood 02/21/2025 12:1 1 PM CDT 02/21/2025 12:11 PM CDT [facility] POCT ORDERABLES - DEVICE Final Result Performing Organization Address [facility] de Phone Number [facility] [address] * POCT glucose (02/21/2025 8:27 AM CDT) Glucose, POC 122 70 - 199 mg/dL Blood 02/21/2025 8:27 AM CDT 02/21/2025 8:27 AM CDT [facility] POCT ORDERABLES - DEVICE Final Result Performing Organization Address [facility] de Phone Number [facility] [place] [address] * (ABNORMAL) POCT glucose (02/20/2025 9:08 PM CDT) Glucose, POC 220(H) 70 - 199 mg/dL Blood 02/20/2025 9:08 PM CDT 02/20/2025 9:08 PM CDT Ellyn Olena Gomez DO LAB POCT ORDERABLES - DEVICE Final Result Performing Organization Address [facility] Co de Phone Number [facility] [place] [address] * (ABNORMAL) eGFR (02/20/2025 7:04 PM CDT) Pathologist [facility] eGFR 43(L) >=60 mL/min/1. 73 m2 Comment: [...] PM CDT 02/20/2025 8:30 PM CDT Ellyn Olena Gomez DO LAB BLOOD ORDERABLE S Final Result Performing Organization Address City/[facility]/ZIP Co de Phone Number [facility] [place] [address] * (ABNORMAL) Differential, auto (02/20/2025 7:04 PM CDT) Pathologist [facility] Neutrophil abs 6.21 1.50 - 6.50 K/cumm Imm gran abs 0.06 0.00 - 0.10 K/cumm [facility] Lymphocyte abs 0.46(L) 0.80 - 3.30 K/cumm [facility] Monocyte abs 0.84(H) 0.20 - 0.80 K/cumm [facility] Eosinophil abs 0.05 0.00 - 0.50 K/cumm [facility] Basophil abs 0.02 0.00 - 0.10 K/cumm [facility] Neutrophil pct 81.2 % [facility] Comment: Interpretive Data Percent cell count reference ranges are not reported, since discordance with absolute values may lead to misinterpretation of CBC data. Current Interpretive Data was last revised on 2017. Imm gran pct 0.8 % [facility] Comment: Interpretive Data Percent cell count reference ranges are not reported, since discordance with absolute values may lead to misinterpretation of CBC data. Current Interpretive Data was last revised on 2017. Lymphocyte pct 6.0 % [facility] Comment: Interpretive Data Percent cell count reference ranges are not reported, since discordance with absolute values may lead to misinterpretation of CBC data. Current Interpretive Data was last revised on 2017. Monocyte pct 11.0 % [facility] Comment: Interpretive Data Percent cell count reference ranges are not reported, since discordance with absolute values may lead to misinterpretation of CBC data. Current Interpretive Data was last revised on 2017. Eosinophil pct 0.7 % [facility] Comment: Interpretive Data Percent cell count reference ranges are not reported, since discordance with absolute values may lead to misinterpretation of CBC data. Current Interpretive Data was last revised on 2017. Basophil pct 0.3 % [facility] Comment: Interpretive Data Percent cell count reference ranges are not reported, since discordance with absolute values may lead to misinterpretation of CBC data. Current Interpretive Data was last revised on 2017. Blood 02/20/2025 7:04 PM CDT 02/20/2025 8:30 PM CDT us Ellyn Gomez DO LAB BLOOD ORDERABLE S Final Result [facility] [place] [address] * (ABNORMAL) CBC with auto differential (02/20/2025 7:04 PM CDT) [facility] WBC 7.64 3.80 - 9.90 K/cumm Hgb 14.0 13.0 - 17.5 g/dL [facility] Hct 44.7 38.9 - 50.3 % [facility] Plt 189 150 - 400 K/cumm [facility] MPV 11.1 9.1 - 12.3 fL [facility] RBC 4.43 4.30 - 5.80 M/cumm [facility] MCV 100.9(H) 81.3 - 96.4 fL [facility] MCH 31.6 27.1 - 33.3 pg [facility] MCHC 31.3(L) 32.3 - 35.7 g/dL [facility] RDW CV 15.6(H) 11.1 - 14.9 % [facility] RDW SD 58.4(H) 35.7 - 48.1 fL [facility] NRBC abs 0.00 0.00 - 0.01 K/cumm [facility] Blood 02/20/2025 7:04 PM CDT 02/20/2025 8:30 PM CDT [facility] LAB BLOOD ORDERABLE S Final Result Performing Organization Address City/[facility] Co de Phone Number [facility] [address] * Phosphorus (02/20/2025 7:04 PM CDT) [facility] Phosphorus, pl 3.4 2.3 - 4.5 mg/dL Blood 02/20/2025 7:04 PM CDT 02/20/2025 8:30 PM CDT [facility] LAB BLOOD ORDERABLE S Final Result [facility] [address] * Magnesium (02/20/2025 7:04 PM CDT) [facility] Magnesium 1.7 1.4 - 2.5 mg/dL Blood 02/20/2025 7:04 PM CDT 02/20/2025 8:30 PM CDT Ellyn Gomez DO LAB BLOOD ORDERABLE S Final Result Performing Organization Address [facility] de Phone Number [facility] [place] [address] * (ABNORMAL) Hemoglobin A1c (02/20/2025 7:04 PM CDT) [facility] Hgb A1C 5.8(H) 4.0 - 5.6 % Estimated Average Glucose 120 mg/dL [facility] Comment: The ADA recommends reporting an estimated Average Glucose (eAG) with all Hemoglobin A1c results using the equation derived from a study of 507 normal and diabetic adults. Minority populations were underrepresented and children were not included. (Diabetes Care 2020; 43(S1): S66-S76). The eAG is not equivalent to a fasting glucose. Blood 02/20/2025 7:04 PM CDT 02/20/2025 8:30 PM CDT Gisselle Slater MICROBIOLOGY DIRECTOR LAB BLOOD ORDERABLES Linsey l Result Performing Organization Address [facility] de Phone Number [facility] [place] [address] * (ABNORMAL) Basic metabolic panel (02/20/2025 7:04 PM CDT) [facility] Sodium 141 135 - 145 mmol/L Potassium, pl 4.4 3.3 - 4.9 mmol/L [facility] Comment:Hemolyzed; Potassium value may be falsely elevated by as much as 0.6-1.0 mmol/L. Suggest redraw and reanalysis. Chloride 105 97 - 110 mmol/L [facility] CO2 23 22 - 32 mmol/L [facility] Anion gap 13 2 - 15 mmol/L [facility] BUN 26(H) 6 - 25 mg/dL [facility] Creatinine 1.63(H) 0.80 - 1.30 mg/dL [facility] Glucose 172 70 - 199 mg/dL [facility] Comment: Interpretive Data Fasting glucose >/= [...] Calcium 9.3 8.5 - 10.3 mg/dL [facility] Blood 02/20/2025 7:04 PM CDT 02/20/2025 8:30 PM CDT us Ellyn Gomez DO LAB BLOOD ORDERABLE S Final Result [facility] [place] [address] * XR Shoulder Left 2 or More [...] signed by: Jacob Pascual M.D. Gisselle Slater MICROBIOLOGY DIRECTOR IMG XR PROCEDURES Final R esult * POCT glucose (02/20/2025 12:12 PM CDT) Glucose, POC 192 70 - 199 mg/dL Blood 02/20/2025 12:1 2 PM CDT 02/20/2025 12:12 PM CDT Ellyn Gomez DO LAB POCT ORDERABLES - DEVICE Final Result [facility] [place] [address] * POCT glucose (02/20/2025 7:50 AM CDT) Glucose, POC 102 70 - 199 mg/dL Blood 02/20/2025 7:50 AM CDT 02/20/2025 7:50 AM CDT Ellyn Gomez DO LAB POCT ORDERABLES - DEVICE Final Result [facility] [place] [address] * Drugs of Abuse Screen, Urine with Reflex Confirmation (02/20/2025 4:56 AM CDT) Amphetamine, ur Not Detected CutOff 500ng/mL Comment: Interpretive Data - Amphetamines: Samples containing greater than 500 ng/mL d-methamphetamine or other cross-reacting amphetamine compounds are reported as positive. Amphetamine immunoassays are subject to significant false positive rates due to cross-reactivity of non-amphetamine drugs. Confirmatory testing required for definitive results. Current Interpretive Data was last reviewed 2023. Barbiturates, ur Not Detected CutOff 200ng/mL [facility] Comment: Interpretive Data - Barbiturates: Samples containing greater than 200 ng/mL secobarbital or other cross-reacting barbiturate compounds are reported as positive. False positive and false negative results are possible. Confirmatory testing required for definitive results. Current Interpretive Data was last reviewed 2023. Benzodiazepines, ur Not Detected CutOff 100ng/mL [facility] Comment: Interpretive Data - Benzodiazepines: Samples containing greater than 100 ng/mL nordiazepam or other cross-reacting compounds are reported as positive. False positive and false negative results are possible. Confirmatory testing required for definitive results. Current Interpretive Data was last reviewed 2023. Cannabinoids, ur Not Detected CutOff 50 ng/mL [facility] Comment: Interpretive Data - Cannabinoids: Samples containing greater than 50 ng/mL delta-9 THC -COOH or other cross- reacting compounds are reported as positive. False positive and false negative results are possible. Confirmatory testing required for definitive results. Current Interpretive Data was last reviewed 2023. Cocaine, ur Not Detected CutOff 150ng/mL [facility] Comment: Interpretive Data - Cocaine: Samples containing greater than 150 ng/mL benzoylecgonine or other cross- reacting compounds are reported as positive. False positive and false negative results are possible. Confirmatory testing required for definitive results. Current Interpretive Data was last reviewed 2023. Fentanyl, Ur Not Detected CutOff 5 ng/mL [facility] Comment: Interpretive Data - Fentanyl: Samples containing greater than 5 ng/mL norfentanyl, fentanyl, or other cross-reacting fentanyl compounds are reported as positive. False positive and false negative results are possible. Confirmatory testing required for definitive results. Current Interpretive Data was last reviewed 2023. Methadone, ur Not Detected CutOff 300ng/mL [facility] Comment: Interpretive Data - Methadone: Samples containing greater than 300 ng/mL d,l-methadone or other cross-reacting compounds are reported as positive. False positive and false negative results are possible. Confirmatory testing required for definitive results. Current Interpretive Data was last reviewed 2023. Opiates, ur Not Detected CutOff 300ng/mL [facility] Comment: Interpretive Data - Opiates: Samples containing greater than 300 ng/mL morphine or other cross-reacting compounds are reported as positive. False positive and false negative results are possible. Confirmatory testing required for definitive results. Current Interpretive Data was last reviewed 2023. Oxycodone, ur Not Detected CutOff 100ng/mL [facility] Comment: Interpretive Data - Oxycodone: Samples containing greater than 100 ng/mL oxycodone or other cross-reacting compounds are reported as positive. False positive and false negative results are possible. Confirmatory testing required for definitive results. Current Interpretive Data was last reviewed 2023. Phencyclidine, ur Not Detected CutOff 25 ng/mL [facility] Comment: Interpretive Data - Phencyclidine: Samples containing greater than 25 ng/mL phencyclidine or other cross-reacting compounds are reported as positive. False positive and false negative results are possible. Confirmatory testing required for definitive results. Current Interpretive Data was last reviewed 2023. Urine Creatinine 74 mg/dL [facility] Comment: Interpretive Data Urine Creatinine: < 10 mg/dL is extremely dilute = or > 10 but < 20 mg/dL is dilute = or > 20 mg/dL is normal Current Interpretive Data was last revised on 2017. Urine 02/20/2025 4:56 AM CDT 02/20/2025 5:37 AM CDT Narrative [facility] - 02/20/2025 6:25 AM CDT Drug of Abuse screening is performed by immunoassay for medical purposes only. This is not to be used for Pain Management purposes. If Detected, confirmation testing will be performed for Amphetamines, Cocaine, Fentanyl, Methadone, Opiates, Oxycodone or Phencyclidine. us Adrian Pizarro MD LAB URINE ORDERABLES Final Re sult [facility] [place] [address] * CT Head and Cervical Spine WO [...] is no spinal canal stenosis. Procedure Note Pepper Broussard MD - 02/20/2025 EXAMINATION: 1. CT head [...] * POCT glucose (02/20/2025 12:34 AM CDT) [facility] Glucose, POC 177 70 - 199 mg/dL Blood 02/20/2025 12:3 4 AM CDT 02/20/2025 12:34 AM CDT Ellyn Gomez DO LAB POCT ORDERABLES - DEVICE Final Result [facility] [place] [address] * ECG 12 lead (02/19/2025 11:26 PM CDT) [facility] Ventricular Rate EKG/Min 95 BPM [facility] Atrial Rate 227 BPM [facility] QRS-Interval (MSEC) 128 ms [facility] QT-Interval (MSEC) 390 ms [facility] QTc 490 ms [facility] R [place] -49 degrees [facility] T [place] 112 degrees [facility] Diagnosis Atrial flutter with variable A-V block Left axis deviation Non-specific intra-ventricu lar conduction block Abnormal QRS-T angle, consider primary T wave abnormality Abnormal ECG When compared with ECG of 08-NOV-2021 07:27, Significant changes have occurred Confirmed by WILLIAM LAI M.D ([id number]) on 02/20/2025 9:34:02 AM [facility] 02/19/2025 11:2 6 PM CDT 02/20/2025 9:34 AM CDT us Ellyn Gomez DO ECG ORDERABLES Fin al Result [facility] * (ABNORMAL) eGFR (02/19/2025 11:16 PM CDT) [...] LAB BLOOD ORDERABLES Linsey l Result [facility] [place] [address] * Albumin (02/19/2025 11:16 PM CDT) Albumin 3.5 3.5 - 5.0 g/dL Blood 02/19/2025 11:1 6 PM CDT 02/19/2025 11:27 PM CDT us Gino Thompson MD LAB BLOOD ORDERABLES Linsey l Result Performing Organization Address City/[facility] Co de Phone Number [facility] [place] [address] * (ABNORMAL) Lipid panel (02/19/2025 11:16 PM [...] on 2018. Triglycerides 101 <=149 mg/dL [facility] Comment: Hemolyzed; result may be falsely [...] revised on 2018. HDL 37(L) >=40 mg/dL [facility] Comment: Interpretive Data Ages < or [...] on 2018. LDL, calculated 44 <=129 mg/dL [facility] Comment: Interpretive Data Ages < or [...] revised on 2024. Non-HDL Cholesterol 63 mg/dL [facility] Comment: Interpretive Data Ages < or [...] revised on 2018. Chol/HDL ratio 3 [facility] Blood 02/19/2025 11:1 6 PM CDT 02/19/2025 11:27 PM CDT Ellyn Gomez DO LAB BLOOD ORDERABLE S Final Result [facility] [place] [address] * (ABNORMAL) Basic metabolic panel (02/19/2025 11:16 PM CDT) Sodium 141 135 - 145 mmol/L Potassium, pl See Comment 3.3 - 4.9 mmol/L [facility] Comment:Credited; Hemolyzed Specimen Chloride 108 97 - 110 mmol/L [facility] CO2 20(L) 22 - 32 mmol/L [facility] Anion gap 13 2 - 15 mmol/L [facility] BUN 30(H) 6 - 25 mg/dL [facility] Creatinine 1.71(H) 0.80 - 1.30 mg/dL [facility] Glucose 156 70 - 199 mg/dL [facility] Comment: Interpretive Data Fasting glucose >/= [...] Calcium 8.3(L) 8.5 - 10.3 mg/dL [facility] Blood 02/19/2025 11:1 6 PM CDT 02/19/2025 11:27 PM CDT us Jules Moore MD LAB BLOOD ORDERABLES Linsey l Result Performing Organization Address City/[facility]/ZIP Co de Phone Number [facility] [place] [address] * POCT glucose (02/19/2025 9:45 PM CDT) Glucose, POC 88 70 - 199 mg/dL Blood 02/19/2025 9:45 PM CDT 02/19/2025 9:[address] [facility] Ellyn Gomez DO LAB POCT ORDERABLES - DEVICE Final Result Performing Organization Address [facility] Co de Phone Number [facility] [place] [address] * [place] [facility] ILL/INJURED PATIENT INIT 30-74 MIN [...] spent time documenting in the medical record. Adrian Pizarro MD IN CLINIC/BEDSIDE ORDERABLES Final Result * Check Sample (02/19/2025 7:30 PM CDT) ABO Rh O Positive [facility] OTHER 02/19/2025 7:30 PM CDT 02/19/2025 7:41 PM CDT Adrian Pizarro MD LAB BLOOD ORDERABLES Final Re sult [facility] [place] [address] [facility] * Neuro CT Outside Consult (02/19/2025 [...] images may or may not represent the [place] source data set and thus may contain [...] IMAGING STUDY STUDY INITIALLY PERFORMED: 02/19/2025 at [facility]. TYPE OF STUDY: Multiple CT [...] IMAGING STUDY STUDY INITIALLY PERFORMED: 02/19/2025 at [facility]. TYPE OF STUDY: Multiple CT [...] images may or may not represent the [place] source data set and thus may contain [...] it. Electronically signed by: Justen Ribera MD Adrian Pizarro MD IMG CT PROCEDURES Final [...] images may or may not represent the [place] source data set and thus may contain [...] images may or may not represent the [place] source data set and thus may contain [...] Outside Reference (02/19/2025 7:15 PM CDT) Impressions [facility] - 02/19/2025 7:15 PM CDT These images are for Reference purposes only and have not been reviewed by [facility] Radiology. There will be no report generated by a [facility] Radiologist. Narrative [facility] - 02/19/2025 7:15 PM CDT EXAMINATION: Images For Reference Purposes Only Adrian Pizarro MD IMG XR PROCEDURES Final Resul t [facility] * (ABNORMAL) Thromboelastometry Panel - Heparin (02/19/2025 [...] BLOOD ORDERABLES Edit ed Result - Final [facility] [place] [address] * (ABNORMAL) Thromboelastometry Panel - Intrinsic (02/19/2025 6:43 PM CDT) INTEM-CT 231(H) 139 - 205 sec INTEM-A5 38 36 - 54 mm [facility] INTEM-A10 50 46 - 63 mm [facility] INTEM-A20 58 53 - 68 mm [facility] INTEM-MCF 62 55 - 70 mm [facility] INTEM-LI60 99 93 - 100 % [facility] INTEM-ML 1 0 - 7 % [facility] Comment: Interpretive Data Rotational Thromboelastometry (TEZ) Sigma [...] Tests to Platelet Function. J Clin Med. 2019 10 9(1) 735. 2. Jennifer O, Kasandra CM, Rafa N, Satish EE, Satish HB, Aaron HC, Antoine WILL, Kristopher Willis MD, Warner SS, Damon G, Hussein SANDOVAL, Mayelin ML, Justen AV, Justen SG, Costa L, Radha CumminsZ, Giovany M, Royce P, José D, Andry MM. Viscoelastic Hemostatic Assays A Primer on Legacy and New Generation Devices. J Clin Med. 2021Sep 19 11(4) 030. 3. TEZ Operating Manual. Emily Mccrary MA. Zxjcyw-Mtiieb-Uqlnams 13-15. D- [id number] [facility]. Blood 02/19/2025 6:43 PM CDT 02/19/2025 6:54 PM CDT us Timothy Cerna MD LAB BLOOD ORDERABLES Edit ed Result - Final Performing Organization Address City/[facility]/ZIP Co de Phone Number [facility] [place] [address] * Thromboelastometry Panel - Fibrinogen (02/19/2025 6:43 PM CDT) FIBTEM-A5 11 5 - 16 mm FIBTEM-A10 13 6 - 17 mm [facility] FIBTEM-A20 14 6 - 18 mm [facility] FIBTEM-MCF 14 9 - 19 mm [facility] Blood 02/19/2025 6:43 PM CDT 02/19/2025 6:54 PM CDT us Timothy Cerna MD LAB BLOOD ORDERABLES Edit ed Result - Final Performing Organization Address [facility] Co de Phone Number [facility] [place] [address] * (ABNORMAL) Thromboelastometry Panel - Extrinsic (02/19/2025 6:43 PM CDT) EXTEM-CT >172 51 - 73 sec EXTEM-A5 31(L) 33 - 52 mm [facility] EXTEM-A10 47 45 - 62 mm [facility] EXTEM-A20 58 54 - 69 mm [facility] EXTEM-MCF 62 57 - 72 mm [facility] EXTEM-LI60 99 94 - 100 % [facility] EXTEM-ML 1 0 - 6 % [facility] Blood 02/19/2025 6:43 PM CDT 02/19/2025 6:54 PM CDT us Timothy Cerna MD LAB BLOOD ORDERABLES Edit ed Result - Final [facility] [place] [id number] * (ABNORMAL) Differential, auto (02/19/2025 6:43 PM CDT) Neutrophil abs 5.74 1.50 - 6.50 K/cumm Imm gran abs 0.03 0.00 - 0.10 K/cumm [facility] Lymphocyte abs 0.48(L) 0.80 - 3.30 K/cumm [facility] Monocyte abs 0.83(H) 0.20 - 0.80 K/cumm [facility] Eosinophil abs 0.02 0.00 - 0.50 K/cumm [facility] Basophil abs 0.03 0.00 - 0.10 K/cumm [facility] Neutrophil pct 80.6 % [facility] Comment: Interpretive Data Percent cell count reference ranges are not reported, since discordance with absolute values may lead to misinterpretation of CBC data. Current Interpretive Data was last revised on 2017. Imm gran pct 0.4 % [facility] Comment: Interpretive Data Percent cell count reference ranges are not reported, since discordance with absolute values may lead to misinterpretation of CBC data. Current Interpretive Data was last revised on 2017. Lymphocyte pct 6.7 % [facility] Comment: Interpretive Data Percent cell count reference ranges are not reported, since discordance with absolute values may lead to misinterpretation of CBC data. Current Interpretive Data was last revised on 2017. Monocyte pct 11.6 % [facility] Comment: Interpretive Data Percent cell count reference ranges are not reported, since discordance with absolute values may lead to misinterpretation of CBC data. Current Interpretive Data was last revised on 2017. Eosinophil pct 0.3 % [facility] Comment: Interpretive Data Percent cell count reference ranges are not reported, since discordance with absolute values may lead to misinterpretation of CBC data. Current Interpretive Data was last revised on 2017. Basophil pct 0.4 % [facility] Comment: Interpretive Data Percent cell count reference ranges are not reported, since discordance with absolute values may lead to misinterpretation of CBC data. Current Interpretive Data was last revised on 2017. Blood 02/19/2025 6:43 PM CDT 02/19/2025 6:58 PM CDT us Timothy Cerna MD LAB BLOOD ORDERABLES Linsey elizalde Result [facility] [address] [facility] [place] [address] * (ABNORMAL) POC Blood Gas and Chemistries, Venous - (02/19/2025 6:43 PM CDT) pH, David POC 7.39 7.32 - 7.43 pCO2, david POC 36(L) 40 - 50 mmHg [facility] pO2, david POC 44 mmHg [facility] Na, POC 139 135 - 145 mmol/L [facility] K POC 5.1(H) 3.3 - 4.9 mmol/L [facility] Comment: Hemolyzed;K+ value may be falsely elevated 0.3-0.6 Interpretive Data Not all point of care methods assess for hemolysis. Confirm with instrument and retest K+ if not consistent with clinical signs and symptoms. Current Interpretive Data was last revised on 2023. Cl, POC 111(H) 97 - 110 mmol/L [facility] Ionized Ca, POC 4.49(L) 4.50 - 5.10 mg/dL [facility] Glucose, POC 86 70 - 199 mg/dL [facility] Lactate POC 1.7 0.7 - 2.0 mmol/L [facility] MetHb, David POC 0.1 0.0 - 1.9 % [facility] O2 Sat, David POC ([place]) 70 % [facility] Base excess, POC -2.6 mmol/L [facility] Hct, POC 43.0 41.4 - 51.6 % [facility] Total Hb, POC 14.2 13.8 - 17.2 g/dL [facility] Blood 02/19/2025 6:43 PM CDT 02/19/2025 6:43 PM CDT Adrian Pizarro MD LAB POCT ORDERABLES - DEVICE Final Result Performing Organization Address [facility] de Phone Number [facility] Department [place] [address] * (ABNORMAL) CBC with auto differential (02/19/2025 6:43 PM CDT) [facility] WBC 7.13 3.80 - 9.90 K/cumm Hgb 13.6 13.0 - 17.5 g/dL [facility] Hct 42.9 38.9 - 50.3 % [facility] Plt 204 150 - 400 K/cumm [facility] MPV 11.1 9.1 - 12.3 fL [facility] RBC 4.25(L) 4.30 - 5.80 M/cumm [facility] MCV 100.9(H) 81.3 - 96.4 fL [facility] MCH 32.0 27.1 - 33.3 pg [facility] MCHC 31.7(L) 32.3 - 35.7 g/dL [facility] RDW CV 15.9(H) 11.1 - 14.9 % [facility] RDW SD 58.5(H) 35.7 - 48.1 fL [facility] NRBC abs 0.00 0.00 - 0.01 K/cumm [facility] Blood 02/19/2025 6:43 PM CDT 02/19/2025 6:58 PM CDT Adrian Pizarro MD LAB BLOOD ORDERABLES Final Re sult Performing Organization Address [facility]/ZIP Co de Phone Number [facility] [place] [address] * aPTT (02/19/2025 6:43 PM CDT) aPTT [...] ORDERABLES Final Re sult Performing Organization Address [facility] de Phone Number [facility] [address] * (ABNORMAL) Protime-INR (02/19/2025 6:43 PM CDT) PT 14.5(H) 9.7 - 13.0 sec INR 1.33(H) 0.90 - 1.20 [facility] Comment: Interpretive data Oral anticoagulant therapeutic ranges: Venous thromboembolism prophylaxis or treatment: 2.0-3.0 CARDIOLOGY Standard range: 2.0-3.0 High-intensity range: 2.5-3.5 Refer to indication-specific guidelines for appropriate target ranges for prosthetic heart valve replacement. Current interpretive data was last revised on 2019. Blood 02/19/2025 6:43 PM CDT 02/19/2025 7:00 PM CDT Adrian Pizarro MD LAB BLOOD ORDERABLES Final Re sult Performing Organization Address [facility] Co de Phone Number [facility] [address] * Type and screen (02/19/2025 6:43 PM CDT) ABO Rh O Positive Tasia, indirect Negative [facility] Blood 02/19/2025 6:43 PM CDT 02/19/2025 7:18 PM CDT Narrative [facility] - 02/19/2025 8:33 PM CDT Has the patient had Daratumumab or Isatuximab in the past 6 months?->Unknown Adrian Pizarro MD LAB BLOOD BANK TEST ORDERABLE S Final Result [facility] [place] [address] * Ethanol (02/19/2025 6:43 PM CDT) Ethanol [...] ORDERABLES Final Re sult Performing Organization Address [facility] [place] [address] * Hepatitis panel, acute Blood (04/27/2023 11:14 AM CDT) [facility] Hep A IgM Nonreactive Nonreactive Hep B core IgM Nonreactive Nonreactive [facility] Hep C Ab Nonreactive Nonreactive [facility] Comment:Antibodies to HCV no t detected. Does NOT exclude the possibility of recent exposure to HCV. Current interpretive data was last revised on 22 HepBsAg Nonreactive Nonreactive [facility] Blood 04/27/2023 11:1 4 AM CDT 04/27/2023 2:07 PM CDT Beverley Torres MD LAB MICROBIOLOGY - GENERAL ORDER TRAY Final Result [facility] [place] [address] from Last 3 Months or Most Recently Relevant to Health Maintenance Insurance [facility] MEDICARE [facility] MEDICARE [facility] MED[facility] Advance Directives For more information, please contact: [phone] * Full Code (Latest Code Status on File) Date Activated Date Inactivated Comments 02/20/2025 12:18 AM 02/25/2025 6:27 PM Care Teams Account Receivable Associate Relationship Specialty Start Date End Date Shagufta Khan MD PCP - General Family Medicine 02/02/21
--- OUTSIDE RECORDS SUMMARY | 2025-04-18 16:46 | XMS_ITS | Encounter Summary ---
Author Organization [facility] Health Address [address] [facility] [place] [address] Care Team Providers Care Biller Name Role Phone Elizabeth Wei MD Primary Care Provider [phone] Shagufta Khan MD Primary Care Provider [phone] Encounter Details Date Type Department Care Team (Late st Contact Info) Description 06/05/2019 Lab Requisition [facility] [address] [facility], [place] [address] Arminda Boyd, [address] [facility] 3 [place] [address] Social History Tobacco Use Types Packs/Day Years [...] Description 06/10/2025 2:00 PM CDT Office Visit [facility] - Nephrology [address] [place] [address], [place] [address] Karthikeyan Elizabeth MD [address] [place] [address] [place] [address] documented as of this encounter Procedures Procedure Name Priority Date/Time Associated Diagnosis Comments DERMATOPATHOLOGY Routine 06/04/2019 12:0 0 AM CDT documented in this encounter Results * DERMATOPATHOLOGY (06/04/2019 12:00 AM CDT) Case Report Dermatopathology Report Case: [id number] Authorizing Provider: Arminda Boyd DO Collected: 06/04/2019 12:00 AM Ordering Location: [facility] Lab Received: 06/05/2019 05:22 [...] The specimen consists of a shave measuring [id number]. Jar 0. 2:28 PM CDT DERMATOPATHOLOGY LABORATORY [...] determined by the Dermatopathology Laboratory at [facility], directed by Dr. John Adams. These tests need not be, and therefore are not, approved by the [place] Food and Drug Administration. The tests are used for clinical purposes. Billing Codes Specimen Charges Stain Charges 75120 1 2:28 PM CDT DERMATOPATHOLOGY LABORATORY Embedded Images 2:28 PM CDT DERMATOPATHOLOGY LABORATORY Pathology/Cytolog y TISSUE SPECIMEN FROM SKIN / Unknown 06/04/2019 06/05/2019 5:22 AM CDT us Arminda Boyd DO LAB - PATHOLOGY/CYTOLOGY ORDERABLES Final Result DERMATOPATHOLOGY LABORATORY [facility] - Department of Dermatology [facility] [facility], 5th [place] [address], [facility] [phone] documented in this encounter Visit Diagnoses Not on filedocumented in this encounter Care Teams Biller Relationship Specialty Start Date End Date Elizabeth Wei MD PCP - General Family Medicine 01/22/19 09/25/23 Shagufta Khan MD [address] [place] [address] PCP - General Family Medicine 09/26/23 documented as of this encounter
--- OUTSIDE RECORDS SUMMARY | 2025-04-18 16:46 | XMS_ITS | Encounter Summary ---
Author Organization [facility] Health Address [address] [place] [address] Care Team Providers Care Brick Molder Hand Name Role Phone Elizabeth Wei MD Primary Care Provider [phone] Shagufta Khan MD Primary Care Provider [phone] Encounter Details Date Type Department Care Team (Late st Contact Info) Description 08/28/2019 Lab Requisition [facility] [address] [facility], [place] [phone] Arminda Boyd, DO [address] [facility] 3 [place] [address] Social History Tobacco Use Types Packs/Day Years [...] [facility] - Nephrology [address] [place] [address], [place] [address] Karthikeyan Elizabeth MD [address] [place] [address] [place] [address] documented as of this encounter Procedures Procedure Name Priority Date/Time Associated Diagnosis Comments DERMATOPATHOLOGY Routine 08/27/2019 12:0 0 AM ORTHOPEDIC SHOE FITTER documented in this encounter Results * DERMATOPATHOLOGY (08/27/2019 12:00 AM ORTHOPEDIC SHOE FITTER) Case Report Dermatopathology Report Case: [id number] Authorizing Provider: Arminda Boyd DO Collected: 08/27/2019 12:00 AM Ordering Location: [facility] Lab Received: 08/28/2019 10:17 AM Pathologist: Caitie Hutchins MD Specimens: A) - Skin, right upper arm B) - Skin, left abdomen 0 1:18 PM ORTHOPEDIC SHOE FITTER DERMATOPATHOLOGY LABORATORY Final Diagnosis Specimen A. SKIN, right upper arm: SOLAR LENTIGO (L81.4) SEBORRHEIC KERATOSIS (L82.1) DERMAL FIBROSIS (L90.5) (see microscopic description) Specimen B. 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 Irreg color and border. B: Nevus R/O atypia. 0 1:18 PM [facility] DERMATOPATHOLOGY LABORATORY Gross Description Specimen A: Received is one formalin filled container labeled with the patient's name and designated right upper arm. The specimen consists of a shave measuring [id number]. Jar 0. Specimen B: Received is one formalin filled container labeled with the patient's name and designated left abdomen. The specimen consists of a shave measuring [id number]. Jar 0. 0 1:18 PM [facility] DERMATOPATHOLOGY LABORATORY Microscopic Description Specimen A. [...] or Compound Dysplastic Nevus) 0 1:18 PM [facility] DERMATOPATHOLOGY LABORATORY Disclaimer An external and internal positive and negative controls are appropriate for the histochemical, immunohistochemical and immunofluorescence stain(s) in this case (if any), except where stated explicitly. The performance characteristics of the stain(s) cited in this report were developed and its performance characteristic determined by the Dermatopathology Laboratory at [facility], directed by Dr. John Adams. These tests need not be, and therefore are not, approved by the [place] Food and Drug Administration. The tests are used for clinical purposes. Billing Codes Specimen Charges Stain Charges 61950 28852 1 1 41444 1 0 1:18 PM ORTHOPEDIC SHOE FITTER DERMATOPATHOLOGY LABORATORY Embedded Images 0 1:18 PM ORTHOPEDIC SHOE FITTER DERMATOPATHOLOGY LABORATORY Pathology/Cytology TISSUE SPECIMEN FROM SKIN / Unknown 08/27/2019 08/28/2019 10:17 AM ORTHOPEDIC SHOE FITTER Miscellaneous samples (specimen) TISSUE SPECIMEN FROM SKIN / Unknown 08/27/2019 08/28/2019 10:17 AM ORTHOPEDIC SHOE FITTER Arminda Boyd DO LAB - PATHOLOGY/CYTOLOGY ORDERABLES Final Result DERMATOPATHOLOGY LABORATORY [facility] - Department of Dermatology [address] [place] [address], 5th Floor Lab [address] [phone] documented in this encounter Visit Diagnoses Not on filedocumented in this encounter Care Teams Brick Molder Hand Relationship Specialty Start Date End Date Elizabeth Wei MD PCP - General Family Medicine 01/22/19 09/25/23 Shagufta Khan MD [address] [place] [address] PCP - General Family Medicine 09/26/23 documented as of this encounter
--- OUTSIDE RECORDS SUMMARY | 2025-04-18 16:46 | XMS_ITS | Encounter Summary ---
Author Organization [facility] Health Address [address] [facility] [place] [address] Care Team Providers Care Reliability Technicians Name Role Phone Elizabeth Wei MD Primary Care Provider [phone] Shagufta Khan MD Primary Care Provider [phone] Reason for Visit * Reason Onset Date Comments MEDICATION REFILL 04/19/2019 Encounter Details Date Type Department Care Team (Late st Contact Info) Description 04/19/2019 Refill [facility] [address] [place] [address] Rolando Long MD [address] [address] MEDICATION REFILL Social History Tobacco [...] Visit [facility] - Nephrology [address] [facility], [place] [address] Karthikeyan Elizabeth MD [address] [place] [address] [place] [address] documented as of this encounter Visit Diagnoses Not on filedocumented in this encounter Care Teams Reliability Technicians Relationship Specialty Start Date End Date Elizabeth Wei MD PCP - General Family Medicine 01/22/19 09/25/23 Shagufta Khan MD [address] [place] [address] PCP - General Family Medicine 09/26/23 documented as of this encounter
--- OUTSIDE RECORDS SUMMARY | 2025-04-18 16:46 | XMS_ITS | Encounter Summary ---
Author Organization [facility] Address [address] [place] [address] Care Team Providers Care Pattern Cutter Name Role Phone Shagufta Khan MD Primary Care Provider [phone] Encounter Details Date Type Department Care Team (Late st Contact Info) Description 11/18/2024 Orders Only [facility] Health Information Management [address] [place] [address] Scanning, Provider Social History Tobacco Use Types [...] on file Legal Sex Male 2:28 AM ROD TAPE OPERATOR Gender Identity Male 07/28/2020 10:07 AM ROD TAPE OPERATOR Sexual Orientation Straight 07/28/2020 10 :07 AM ROD TAPE OPERATOR 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
--- OUTSIDE RECORDS SUMMARY | 2025-04-18 16:46 | XMS_ITS | Encounter Summary ---
Author Organization [facility] Address [address] [place] [address] Phone Care Team Providers Care Equalizer Operator Name Role Phone Shagufta Khan MD Primary Care Provider [phone] Encounter Details Date Type Department Care Team [...] on file Legal Sex Male 2:28 AM RUG INSPECTOR Gender Identity Male 07/28/2020 10:07 AM RUG INSPECTOR Sexual Orientation Straight 07/28/2020 10 :07 AM RUG INSPECTOR documented as of this encounter Plan of Treatment Not on file documented as of this encounter Procedures Procedure Name Priority Date/Time Associated Diagnosis Comments SCAN - LABS 03/06/2023 documented in this encounter Results * SCAN - LABS (03/06/2023) us Provider Scanning Final Result documented in this encounter Visit Diagnoses Not on filedocumented in this encounter Care Teams Equalizer Operator Relationship Specialty Start Date End Date Shagufta Khan MD PCP - General Family Medicine 02/02/21 documented as of this encounter
--- OUTSIDE RECORDS SUMMARY | 2025-04-18 16:46 | XMS_ITS | Clinical Summary ---
[facility] Organization [facility] Address [address] [place] [address] Care Team Providers Care Lathe Sander Name Role Phone Shagufta Khan MD Primary Care Provider [phone] Allergies Active Allergy Reactions Criticality Noted Date [...] Sex Assigned at Male 07/18/2024 10:14 PM SANITATION TANK WASHER Legal Sex Male 8:42 AM SANITATION TANK WASHER Gender Identity Male 07/18/2024 10:14 PM SANITATION TANK WASHER Sexual Orientation Straight 07/18/2024 10 :14 PM SANITATION TANK WASHER Last Filed Vital Signs Vital Sign Reading [...] 185.4 cm (6' 1) 10/03/2023 1:43 PM SANITATION TANK WASHER Body Mass Index 43.27 10/03/2023 1:43 PM SANITATION TANK WASHER Plan of Treatment Health Maintenance Due Date [...] Insurance [employer] OPEN CHOICE PPO Care Teams Lathe Sander Relationship Specialty Start Date End Date Shagufta Khan MD [address] [place] [phone] PCP - General Family Practice 10/02/23
--- OUTSIDE RECORDS SUMMARY | 2025-04-18 16:46 | XMS_ITS | Encounter Summary ---
Author Organization [facility] Health Address [address] [facility] [place] [address] Care Team Providers Care Development Professional Name Role Phone Elizabeth Wei MD Primary Care Provider [phone] Shagufta Khan MD Primary Care Provider [phone] Encounter Details Date Type Department Care Team (Late st Contact Info) Description 12/24/2019 Lab Requisition [facility] [address] [facility] [place] [address] Arminda Boyd, [address] [facility] 3 [place] [address] Social History Tobacco Use Types Packs/Day Years [...] Description 06/10/2025 2:00 PM CDT Office Visit [facility] - Nephrology [address] [place] [address], [place] [address] Karthikeyan Elizabeth MD [address] [place] [address] [place] [address] documented as of this encounter Procedures Procedure Name Priority Date/Time Associated Diagnosis Comments DERMATOPATHOLOGY Routine 12/23/2019 12:0 0 AM CDT documented in this encounter Results * DERMATOPATHOLOGY (12/23/2019 12:00 AM CDT) Case Report Dermatopathology Report Case: [id number] Authorizing Provider: Arminda Boyd DO Collected: 12/23/2019 12:00 AM Ordering Location: [facility] Lab Received: 12/24/2019 11:36 AM [...] The specimen consists of a shave measuring [id number]. Jar 0. 0 1:14 PM CDT DERMATOPATHOLOGY [...] by the Dermatopathology Laboratory at [facility], directed by Dr. John Adams. These tests need not be, and therefore are not, approved by the [place] Food and Drug Administration. The tests are used for clinical purposes. Billing Codes Specimen Charges Stain Charges 09692 1 0 1:14 PM CDT DERMATOPATHOLOGY LABORATORY Embedded Images 0 1:14 PM CDT DERMATOPATHOLOGY LABORATORY Pathology/Cytolog y TISSUE SPECIMEN FROM SKIN / Unknown 12/23/2019 12/24/2019 11:36 AM CDT us Arminda Boyd DO LAB - PATHOLOGY/CYTOLOGY ORDERABLES Final Result DERMATOPATHOLOGY LABORATORY [facility] - Department of Dermatology [facility] [facility] 5th [place] [address], [facility] [phone] documented in this encounter Visit Diagnoses Not on filedocumented in this encounter Care Teams Development Professional Relationship Specialty Start Date End Date Elizabeth Wei MD PCP - General Family Medicine 01/22/19 09/25/23 Shagufta Khan MD [address] [place] [address] PCP - General Family Medicine 09/26/23 documented as of this encounter
--- NOTE | 2025-04-18 16:54 | ED_ITS ---
HPI - GI Bleed General Chief complaint: GI Bleed <Jasmyne Padilla MD - Last Filed: 04/18/25 21:50> Stated complaint: RECTAL BLEEDING <Jasmyne Padilla MD - Last Filed: 04/18/25 21:50> Time Seen by Provider: 04/18/25 16:42 <Jasmyne Padilla MD - Last Filed: 04/18/25 21:50> Source: patient and RN notes reviewed <Jasmyne Padilla MD - Last Filed: 04/18/25 21:50> Mode of arrival: EMS <Jasmyne Padilla MD - Last Filed: 04/18/25 21:50> History of Present Illness HPI Narrative: Patient presents with report of rectal bleeding. There was also report of bloody diarrheal stool. Patient had been complaining of abdominal cramping earlier but denies any abdominal pain or cramping now/today. Patient is unsure he is on anticoagulation. He knows that he takes furosemide but he believes that there was talk back and forth over the past week of if he should be on/take Eliquis. Patient reports that he has been in and out of multiple hospitals including [facility], [facility], and [facility]. He reports that he was most recently at [facility]. By report he has only been a resident at [facility] for approximately 1 week. Was reported that he was borderline hypotensive for EMS administered 250 cc bolus IV fluids. Patient believes he might of had a GI bleed before but states he is not sure , don't hold me to it.Patient denies any previous abdominal surgeries other than an appendectomy. <Jasmyne Padilla MD - Last Filed: 04/18/25 21:50> Related Data Home medications: Home Medications ?Medication ?Instructions ?Recorded ?Confirmed ?Last Taken ?Type finasteride 5 mg tablet 5 mg PO DAILY 12/19/1903/1803/17/25 History sodium bicarbonate 650 mg tablet 650 mg PO TID 2 03/18/25 03/17/25 History chlorthalidone 25 mg tablet 25 mg PO DAILY 01/18/2303/17/25 History empagliflozin 10 mg tablet 10 mg PO DAILY 01/18/2302/0425 History (Jardiance) metoprolol succinate 100 mg 100 mg PO DAILY 07/10/23 0 03/18/25 03/17/25 History tablet,extended release 24 hr sacubitril 24 mg-valsartan 26 mg 1 tablet PO BID 07/1003/18/25 03/17/25 History tablet (Entresto) hydralazine 100 mg tablet 100 mg PO BID 07/14/2403/1803/17/25 History acetaminophen 325 mg tablet 650 mg PO Q6H 02/25/2502/0403/17/25 History amlodipine 5 mg tablet 5 mg PO DAILY 02/25/2503/1803/17/25 History clonidine HCl 0.1 mg tablet 0.1 mg PO BID 02/25/2502/0403/17/25 History methocarbamol 500 mg tablet 500 mg PO TID PRN muscle s pasm 02/25/25 03/18/25 Unknown History miconazole nitrate 2 % topical 1 applic topical BID 03/18/25 03/17/25 History powder polyethylene glycol 3350 17 17 g PO DAILY 02/25/2502/0403/17/25 History gram/dose oral powder pravastatin 20 mg tablet 20 mg PO HS 02/25/25 5 03/17/25 History apixaban 5 mg tablet (Eliquis) 5 mg PO Q12H 03/18/25 0 03/18/25 03/17/25 History levetiracetam 500 mg tablet 500 mg PO BID 03/18/2502/0403/17/25 History (Keppra) <Jasmyne Padilla MD - Last Filed: 04/18/25 21:50> Allergies/Adverse reactions: Allergies Allergy/AdvReac Type Severity Reaction Status Date / Time diclofenac Allergy Unknown Unknown Verified 03/18/25 13:46 Penicillins Allergy Unknown Unknown Verified 03/18/25 13:46 <Jasmyne Padilla MD - Last Filed: 04/18/25 21:50> [facility] Past Medical History Medical History: Medical History Acquired absence of other specified parts of digestive tract Acquired absence of other organs Obesity with alveolar hypoventilation Obesity, morbid, BMI 40.0-49.9 Chronic subdural hematoma Atrial fibrillation 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, bilateral Multinodular goiter Morbid obesity with BMI of 45.0-49.9, adult Coronary artery disease ANTONIO on CPAP Primary hypertension Chronic diastolic CHF (congestive heart failure) Non-ischemic cardiomyopathy Dyspnea on exertion Morbid obesity Cataracts, bilateral CKD (chronic kidney disease) stage 3, GFR 30-59 ml/min Chronic joint pain Type 2 diabetes mellitus <Jasmyne Padilla MD - Last Filed: 04/18/25 21:50> Surgical History Surgical History: Surgical History History of appendectomy S/P ablation of atrial fibrillation History of thyroidectomy (~02/2019) Hx of cataract extraction (~08/2020) History of skin surgery (~03/2019) 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 <Jasmyne Padilla MD - Last Filed: 04/18/25 21:50> Family History Family History: Family History (Updated 03/18/25 @ 13:29 by Sonia Galeano RN) Father Rheumatoid arthritis Lung cancer Mother Arthritis Hypertension Obesity Diabetes mellitus Sibling Diabetes mellitus Other Rheumatoid arteritis <Jasmyne Padilla MD - Last Filed: 04/18/25 21:50> Social History Social History: Social History (Updated 04/18/25 @ 17:09 by Jasmyne Padilla MD) Social History: Advanced Directive: Full Code per [place] documentation (no POLST) Smoking packs per day: 2 Smoking cigarettes per day: 40.0 Years smoked: 15 Smoking pack-years: 30.00 Smoking status: Former smoker Tobacco type: cigarettes Second hand tobacco smoke exposure: No Smoking end date: 08/13/74 Alcohol intake: current Drinks per week: 12 Substance use: never Substance use type: does not use Do You Feel Safe in your Home?: Yes Lack of Transportation: No Lack of Food: Never True Current Housing: I Have Housing Concerned About Future Housing: No Difficulty Paying Gas/Electric Bills: No Difficulty Paying for Meds: No Currently Unemployed: No Education: High School Diploma/GED Difficulty w/ Childcare or Family Care: No Living arrangements: long-term Additional living arrangements comments: [facility] [place] since 04/10/25 Occupation/Education: retired Gender identity (if verbalized by the patient): Male Sexual Orientation (if Verbalized by the Patient): Straight or Heterosexual Spiritual care concerns: Yes (Episcopalian) Agree to blood products: Yes <Jasmyne Padilla MD - Last Filed: 04/18/25 21:50> Exam 2 Narrative: GENERAL: Well-appearing, well-nourished, and in no acute distress. HEAD: Normocephalic, atraumatic. EYES: Non injected, non icteric ENT: Nares clear, no rhinorrhea or epistaxis. Gross auditory acuity intact. NECK: Supple. No meningismus. CHEST: Speaking in full sentences. No respiratory distress. HEART: Irregularly IrRegular rate and rhythm. . ABDOMEN: Obese, mildly distended bu Soft. No TTP throughout. No rigidity or guarding. Not peritoneal. EXTREMITIES: Moves x4 SKIN: Warm, dry. Sacral decubitus ulcer, stage II. Rectal: GEOVANNI performed with jason Andrews and JAZZ Zaragoza present. Patient has large amount of soft but formed stool that is coming out of his rectum and in his brief but it is surrounded by bright red blood both in rectal vault and in brief. Stool removed from rectum and there is blood in rectal vault. NEURO: No focal deficits. Alert and oriented. Answering questions although unsure of health history. Following commands. Normal speech without aphasia or dysarthria. Occasionally asking the same question/can't remember what he was told. PSYCH: Congruent mood and affect. <Jasmyne Padilla MD - Last Filed: 04/18/25 21:50> Course Vital Signs Vital signs: Vital Signs Temperature 97.6 F 04/18/25 16:41 Pulse Rate 76 04/18/25 16:41 Respiratory Rate 20 04/18/25 16:41 Blood Pressure 104/75 04/18/25 16:41 Pulse Oximetry 95 04/18/25 16:41 Oxygen Delivery Room Air 04/18/25 16:41 Temperature 97.6 F 04/18/25 16:41 Pulse Rate 81 04/19/25 05:15 Respiratory Rate 19 04/19/25 05:15 Blood Pressure 139/79 04/19/25 05:01 Pulse Oximetry 90 04/19/25 01:45 Oxygen Delivery Room Air 04/18/25 16:41 <Jasmyne Padilla MD - Last Filed: 04/18/25 21:50> Vital Signs Temperature 97.6 F 04/18/25 16:41 Pulse Rate 76 04/18/25 16:41 Respiratory Rate 20 04/18/25 16:41 Blood Pressure 104/75 04/18/25 16:41 Pulse Oximetry 95 04/18/25 16:41 Oxygen Delivery Room Air 04/18/25 16:41 Temperature 97.6 F 04/18/25 16:41 Pulse Rate 81 04/19/25 05:15 Respiratory Rate 19 04/19/25 05:15 Blood Pressure 139/79 04/19/25 05:01 Pulse Oximetry 90 04/19/25 01:45 Oxygen Delivery Room Air 04/18/25 16:41 <Mely Whyte MD - Last Filed: 04/19/25 05:27> MDM - GI Bleed MDM Narrative Medical decision making narrative: The patient is a 79 year old male who comes to the emergency department with rectal bleeding noted by staff facility. Unclear how many episodes. Also report of bloody diarrheal stool. No associated abdominal pain currently though had complained of abd cramping a few days ago. In the ED they are initially afebrile and hemodynamically stable without tachycardia or hypotension. Based on history and physical, suspect lower GI bleed so will go ahead and order CBC, CMP, coagulation studies, lactate, and type and screen. My differential diagnosis at this time is diverticulosis versus angiodysplasia versus Meckel's diverticulum. Colon cancer is also possible. Possible ischemic bowel or anal fissure , IBD/infectious diarrhea . Possible coagulopathy/medication side effect. Possibly hemorrhoids though less likely given degree of bleeding. No medication list was sent with patient initially. Attempted to contact nursing facility but no answer after being on hold for >6 minutes. Unspecified atrial fibrillation is listed in PMH. He has a normocytic anemia, stable from previous. Repeat 4 hr H/H ordered. Received phone call from Radiologist as below. He does state he can see enough of the heart that there is no evidence of heart strain. Patient denies any known history of pulmonary embolism and none is listed on his diagnoses from [place] or in EMR, thus presumably new diagnosis. Patient has chronic azotemia and this appears stable today. His creatinine is within normal limits and has been variable before. Pseudo hypocalcemia as it corrects to normal (8.9) in the setting of hypoalbuminemia. INR 1.8. Sodium corrects to 130/131 given hyperglycemia which is otherwise without anion gap or acidosis. Previous Na 136. Lactic acid normal. Mount Gay Score (predicts readmission risk in patients with acute lower GI bleeding) Based on age, sex, previous lower GI bleed admission, GEOVANNI findings, HR, SBP, and initial Hgb:14 points, 77-81?% Probability of safe discharge (absence of rebleeding, blood transfusion, therapeutic intervention, 28 day readmission, or ). Discharge NOT recommended. Consider admission with further workup and resuscitation as necessary. Discussed with GI Dr Moore who recommends: No PPI, No antibiotics, clear liquid diet as he will not be seen or have intervention tonight. Will start prep tomorrow. Recommends CBC and CMP tomorrow morning at 6am. These are ordered. Very mild elevation of troponin. Because only mildly elevated and no chest pain, will hold on aspirin given the GI bleed but will order 3 hour troponin and patient will be placed in IMU. Has had mild elevations of troponin before. BNP elevated, has been noted before and heart failure is on [place] diagnosis list. Will add CXR. Turbid urine with glucosuria but otherwise does not appear infected. Per further review, it does seem patient was/questionably/likely is on Elliquis (filled 02/19/25). Hospitalist Dr Cleveland does not feel comfortable accepting the admission based on the fact that patient is likely to require an IVC filter given his PE and atrial fibrillation but contraindication to anticoagulation. = Given the need for consideration by a vascular surgeon, patient will require transfer. Patient has been at both [facility] as well as [facility]. He states he was discharged most recently from [facility], 1-2 weeks ago, and this would be his preference for transfer although he is also amenable with any [facility] affiliated sites (per discussion with RN). Amenable to [facility] as back up option. Images pushed to both locations and disc made. Spoke with [facility] transfer center who subsequently spoke with vascular surgery who agreed to be on consult. Patient was then discussed with the hospitalist on-call by title coordinator who conveyed the information. Hospitalist Dr Bowen accepted admission without needing further information from me. Pending bed and will consult GI upon arrival. Phone call also made to [facility]. Discussed with Dr Campuzano at [facility] hospitalist who accepts patient but pending a medication list from facility//medication reconcilliation to confirm patient is on Elliquis . Patient signed out to oncoming ED attending pending bed. Attempted to call [facility] again to obtain medication list; was on hold for >13 minutes. Eventually discussed with a staff member who noted they would fax it. <Jasmyne Padilla MD - Last Filed: 04/18/25 21:50> The patient is a 79 year old male who comes to the emergency department with rectal bleeding noted by staff facility. Unclear how many episodes. Also report of bloody diarrheal stool. No associated abdominal pain currently though had complained of abd cramping a few days ago. In the ED they are initially afebrile and hemodynamically stable without tachycardia or hypotension. Based on history and physical, suspect lower GI bleed so will go ahead and order CBC, CMP, coagulation studies, lactate, and type and screen. My differential diagnosis at this time is diverticulosis versus angiodysplasia versus Meckel's diverticulum. Colon cancer is also possible. Possible ischemic bowel or anal fissure , IBD/infectious diarrhea . Possible coagulopathy/medication side effect. Possibly hemorrhoids though less likely given degree of bleeding. No medication list was sent with patient initially. Attempted to contact nursing facility but no answer after being on hold for >6 minutes. Unspecified atrial fibrillation is listed in PMH. He has a normocytic anemia, stable from previous. Repeat 4 hr H/H ordered. Received phone call from Radiologist as below. He does state he can see enough of the heart that there is no evidence of heart strain. Patient denies any known history of pulmonary embolism and none is listed on his diagnoses from [place] or in EMR, thus presumably new diagnosis. Patient has chronic azotemia and this appears stable today. His creatinine is within normal limits and has been variable before. Pseudo hypocalcemia as it corrects to normal (8.9) in the setting of hypoalbuminemia. INR 1.8. Sodium corrects to 130/131 given hyperglycemia which is otherwise without anion gap or acidosis. Previous Na 136. Lactic acid normal. Mount Gay Score (predicts readmission risk in patients with acute lower GI bleeding) Based on age, sex, previous lower GI bleed admission, GEOVANNI findings, HR, SBP, and initial Hgb:14 points, 77-81?% Probability of safe discharge (absence of rebleeding, blood transfusion, therapeutic intervention, 28 day readmission, or ). Discharge NOT recommended. Consider admission with further workup and resuscitation as necessary. Discussed with GI Dr Moore who recommends: No PPI, No antibiotics, clear liquid diet as he will not be seen or have intervention tonight. Will start prep tomorrow. Recommends CBC and CMP tomorrow morning at 6am. These are ordered. Very mild elevation of troponin. Because only mildly elevated and no chest pain, will hold on aspirin given the GI bleed but will order 3 hour troponin and patient will be placed in IMU. Has had mild elevations of troponin before. BNP elevated, has been noted before and heart failure is on [place] diagnosis list. Will add CXR. Turbid urine with glucosuria but otherwise does not appear infected. Per further review, it does seem patient was/questionably/likely is on Elliquis (filled 02/19/25). Hospitalist Dr Cleveland does not feel comfortable accepting the admission based on the fact that patient is likely to require an IVC filter given his PE and atrial fibrillation but contraindication to anticoagulation. = Given the need for consideration by a vascular surgeon, patient will require transfer. Patient has been at both [facility] as well as [facility]. He states he was discharged most recently from [facility], 1-2 weeks ago, and this would be his preference for transfer although he is also amenable with any [facility] affiliated sites (per discussion with RN). Amenable to [facility] as back up option. Images pushed to both locations and disc made. Spoke with [facility] transfer center who subsequently spoke with vascular surgery who agreed to be on consult. Patient was then discussed with the hospitalist on-call by title coordinator who conveyed the information. Hospitalist Dr Bowen accepted admission without needing further information from me. Pending bed and will consult GI upon arrival. Phone call also made to [facility]. [facility] but pending a medication list from facility//medication reconcilliation to confirm patient is on Elliquis . Patient signed out to oncoming ED attending pending bed. Attempted to call [facility] again to obtain medication list; was on hold for >13 minutes. Eventually discussed with a staff member who noted they would fax it. Isabell: Patient was signed out to me pending transfer to [facility]. Repeat H&H was obtained and actually revealed hemoglobin that was higher than patient's initial hemoglobin. Did receive a call from [facility] at 0527 confirming that the patient does have a bed. Currently pending transport. <Mely Whyte MD - Last Filed: 04/19/25 05:27> Differential Diagnosis Differential diagnosis: Likely Upper gastrointestinal hemorrhage, hematochezia and melena < Jasmyne Padilla MD - Last Filed: 04/18/25 21:50> Medical Records Attestation: I reviewed the patient's medical records. <Jasmyne Padilla MD - Last Filed: 04/18/25 21:50> Medical records narrative: Previous ECHO is available for review in EMR <Jasmyne Padilla MD - Last Filed: 04/18/25 21:50> Lab Data Attestation: I reviewed the patient's lab results. <Jasmyne Padilla MD - Last Filed: 04/18/25 21:50> Result diagrams: 04/19/25 00:28 04/18/25 17:25 <Jasmyne Padilla MD - Last Filed: 04/18/25 21:50> Labs: Lab Results 04/18/25 04/18/25 04/19/25 Range/Units 17:25 19:00 00:28 WBC 8.8 (4.5-10.0) K/mm3 RBC 3.93 L (4.6-6.20) M/mm3 Hgb 11.9 L 12.7 L (14.0-18.0) g/dL Hct 37.8 L 40.7 L (42.0-52.0) % MCV 96.2 (80-100) fl MCH 30.3 (26-34) pg MCHC 31.5 L (32-36) g/dl RDW 14.5 (11.5-14.5) % Plt Count 284 D (150-375) k/mm3 MPV 9.6 (7.4-10.4) fl Immature Gran % (Auto) 0.3 (0-0.5) % Neut % (Auto) 79.3 H (45.5-73.1) % Lymph % (Auto) 9.1 L (18.3-44.2) % Tillman % (Auto) 9.0 H (2.6-8.5) % Eos % (Auto) 1.8 (0-4.4) % Baso % (Auto) 0.5 (0.2-1.2) % Lymph # (Auto) 0.80 L (0.9-3.2) K/mm3 Tillman # (Auto) 0.8 H (0.1-0.6) K/mm3 Eos # (Auto) 0.2 (0-0.3) K/mm3 Baso # (Auto) 0.0 (0.0-0.1) K/mm3 Abs Immat Gran (auto) 0.03 (0.00-0.031) K/mm3 Absolute Neuts (auto) 7.0 H (1.3-6.7) K/mm3 Absolute Nucleated RBC 0.000 (0.0-0.012) K/mm3 Nucleated RBC % 0.0 (0.0-0.2) % PT 20.4 H (11.1-14.7) Seconds INR 1.8 APTT 45.3 H (22.3-36.8) Seconds Sodium 129 L (137-145) mmol/L Potassium 3.8 (3.4-5.0) mmol/L Chloride 94 L (98-107) mmol/L Carbon Dioxide 28 (22-30) mmol/L Anion Gap 7 (4-12) mmol/L BUN 27 H (9-20) mg/dL Creatinine 1.28 (0.7-1.3) mg/dL Estim Creat Clear Calc 63 ml/min Estimated GFR 54 L (59 - ) Glucose 187 H (65-110) mg/dL Lactic Acid 1.6 (0.7-2.0) mmol/L Calcium 8.1 L (8.4-10.2) mg/dL Magnesium 1.6 (1.6-2.3) mg/dL Total Bilirubin 1.3 (0.2-1.3) mg/dL AST 54 (17-59) U/L ALT 32 (6-50) U/L Alkaline Phosphatase 93 (38-126) U/L Troponin I 0.037 H* 0.044 H* (0.000-0.034) ng/mL NT-Pro-B Natriuret Pep 52287 H (19.9-100) pg/mL Total Protein 6.1 L (6.3-8.2) g/dL Albumin 3.0 L (3.5-5.1) g/dL Lipase 65 (23-300) U/L Urine Color Yellow (Yellow) Urine Appearance Turbid H (Clear) Urine pH 5.0 (5.0-9.0) Ur Specific [place] 1.019 (1.001-1.035) Urine Protein Negative (Negative) mg/dL Urine Glucose (UA) 3+ H (Negative) mg/dL Urine Ketones Negative (Negative) mg/dL Ur Blood (Man) Negative (Negative) Urine Nitrate Negative (Negative) Urine Bilirubin Negative (Negative) Urine Urobilinogen 1.0 (<2.0) mg/dL Leukocyte Esterase Rfl Negative (Negative) WU/UL Urine RBC 0-2 (0-2) /hpf Urine WBC 0-5 (0-3) /hpf Ur Squamous Epith Cells None seen (Few) /hpf Urine Bacteria None seen /hpf Urine Casts 3-5 Blood Type O Positive Antibody Screen Negative <Jasmyne Padilla MD - Last Filed: 04/18/25 21:50> Lab Results 04/18/25 04/18/25 04/19/25 Range/Units 17:25 19:00 00:28 WBC 8.8 (4.5-10.0) K/mm3 RBC 3.93 L (4.6-6.20) M/mm3 Hgb 11.9 L 12.7 L (14.0-18.0) g/dL Hct 37.8 L 40.7 L (42.0-52.0) % MCV 96.2 (80-100) fl MCH 30.3 (26-34) pg MCHC 31.5 L (32-36) g/dl RDW 14.5 (11.5-14.5) % Plt Count 284 D (150-375) k/mm3 MPV 9.6 (7.4-10.4) fl Immature Gran % (Auto) 0.3 (0-0.5) % Neut % (Auto) 79.3 H (45.5-73.1) % Lymph % (Auto) 9.1 L (18.3-44.2) % Tillman % (Auto) 9.0 H (2.6-8.5) % Eos % (Auto) 1.8 (0-4.4) % Baso % (Auto) 0.5 (0.2-1.2) % Lymph # (Auto) 0.80 L (0.9-3.2) K/mm3 Tillman # (Auto) 0.8 H (0.1-0.6) K/mm3 Eos # (Auto) 0.2 (0-0.3) K/mm3 Baso # (Auto) 0.0 (0.0-0.1) K/mm3 Abs Immat Gran (auto) 0.03 (0.00-0.031) K/mm3 Absolute Neuts (auto) 7.0 H (1.3-6.7) K/mm3 Absolute Nucleated RBC 0.000 (0.0-0.012) K/mm3 Nucleated RBC % 0.0 (0.0-0.2) % PT 20.4 H (11.1-14.7) Seconds INR 1.8 APTT 45.3 H (22.3-36.8) Seconds Sodium 129 L (137-145) mmol/L Potassium 3.8 (3.4-5.0) mmol/L Chloride 94 L (98-107) mmol/L Carbon Dioxide 28 (22-30) mmol/L Anion Gap 7 (4-12) mmol/L BUN 27 H (9-20) mg/dL Creatinine 1.28 (0.7-1.3) mg/dL Estim Creat Clear Calc 63 ml/min Estimated GFR 54 L (59 - ) Glucose 187 H (65-110) mg/dL Lactic Acid 1.6 (0.7-2.0) mmol/L Calcium 8.1 L (8.4-10.2) mg/dL Magnesium 1.6 (1.6-2.3) mg/dL Total Bilirubin 1.3 (0.2-1.3) mg/dL AST 54 (17-59) U/L ALT 32 (6-50) U/L Alkaline Phosphatase 93 (38-126) U/L Troponin I 0.037 H* 0.044 H* (0.000-0.034) ng/mL NT-Pro-B Natriuret Pep 05459 H (19.9-100) pg/mL Total Protein 6.1 L (6.3-8.2) g/dL Albumin 3.0 L (3.5-5.1) g/dL Lipase 65 (23-300) U/L Urine Color Yellow (Yellow) Urine Appearance Turbid H (Clear) Urine pH 5.0 (5.0-9.0) Ur Specific [place] 1.019 (1.001-1.035) Urine Protein Negative (Negative) mg/dL Urine Glucose (UA) 3+ H (Negative) mg/dL Urine Ketones Negative (Negative) mg/dL Ur Blood (Man) Negative (Negative) Urine Nitrate Negative (Negative) Urine Bilirubin Negative (Negative) Urine Urobilinogen 1.0 (<2.0) mg/dL Leukocyte Esterase Rfl Negative (Negative) WU/UL Urine RBC 0-2 (0-2) /hpf Urine WBC 0-5 (0-3) /hpf Ur Squamous Epith Cells None seen (Few) /hpf Urine Bacteria None seen /hpf Urine Casts 3-5 Blood Type O Positive Antibody Screen Negative <Mely Whyte MD - Last Filed: 04/19/25 05:27> Imaging Data Attestation: I personally reviewed and interpreted this imaging study as follows: < Jasmyne Padilla MD - Last Filed: 04/18/25 21:50> My impression: Poor lung volumes, possibly due to effort, elevated diaphragm as result < Jasmyne Padilla MD - Last Filed: 04/18/25 21:50> Radiologist's impression: Impressions Abdomen/Pelvis CT 04/18/25 18:10 IMPRESSION: 1. Pulmonary embolism in a subsegmental pulmonary arteries the posterior basilar segment right lower lobe with likely significant additional ulnar embolism in the superior segment of pulmonary artery of the left lower lobe. Dr. Del Toro discussed these findings with Dr. Padilla at 6:20 PM. 2. There are some wall thickening at the rectum and mild perirectal stranding suggestive of a proctocolitis which could be structural colitis related 6 similar ball of stool at rectum versus other infectious or inflammatory etiology. <Jasmyne Padilla MD - Last Filed: 04/18/25 21:50> ECG Data EKG #1: Attestation: I personally reviewed and interpreted this ECG as follows: < Jasmyne Padilla MD - Last Filed: 04/18/25 21:50> ECG completion date: 04/18/25 <Jasmyne Padilla MD - Last Filed: 04/18/25 21:50> ECG completion time: 19:01 <Jasmyne Padilla MD - Last Filed: 04/18/25 21:50> Interpretation: Atrial fibrillation at a rate of 87 beats per minute. There are some irregular beats on top of this irregularly irregular rhythm. No P-waves. QRS 150 milliseconds. QT/QTC 415/501. No T-wave inversions. Intraventricular conduction delay. <Jasmyne Padilla MD - Last Filed: 04/18/25 21:50> Discharge Plan Discharge Clinical Impression: Normocytic anemia, BRBPR (bright red blood per rectum), Hypoalbuminemia, Pulmonary embolism on right, Colitis, Hyponatremia, Hyperglycemia due to diabetes mellitus, Rate controlled atrial fibrillation, Non-ST elevation [place] (NSTEMI), Heart failure, Glucosuria, Pulmonary embolus, left <Jasmyne Padilla MD - Last Filed: 04/18/25 21:50> Patient Disposition: Acute Care Hospital <Jasmyne Padilla MD - Last Filed: 04/18/25 21:50> Condition: Stable <Jasmyne Padilla MD - Last Filed: 04/18/25 21:50> Patient Language: Mohawk <Jasmyne Padilla MD - Last Filed: 04/18/25 21:50> Prescriptions: No Action finasteride 5 mg tablet 5 mg PO DAILY metoprolol succinate 100 mg tablet extended release 24 hr 100 mg PO DAILY Entresto 24-26 mg tablet 1 tablet PO BID sodium bicarbonate 650 mg tablet 650 mg PO TID Jardiance 10 mg tablet 10 mg PO DAILY chlorthalidone 25 mg tablet 25 mg PO DAILY hydralazine 100 mg tablet 100 mg PO BID Eliquis 5 mg tablet 5 mg PO Q12H levetiracetam [Keppra] 500 mg tablet 500 mg PO BID glimepiride 4 mg tablet 4 mg PO DAILY Qty: 90 3RF metformin 500 mg tablet extended release 24 hr 1,000 mg PO BID Qty: 360 3RF gabapentin 300 mg capsule 300 mg PO QHS Qty: 90 2RF Januvia 100 mg tablet 100 mg PO DAILY Qty: 90 3RF clonidine HCl 0.1 mg tablet 0.1 mg PO BID acetaminophen 325 mg tablet 650 mg PO Q6H Rx Instructions: x7 days amlodipine 5 mg tablet 5 mg PO DAILY methocarbamol 500 mg tablet 500 mg PO TID PRN (Reason: muscle spasm) Rx Instructions: x7 days miconazole nitrate 2 % powder 1 applic topical BID polyethylene glycol 3350 17 gram/dose powder 17 g PO DAILY Rx Instructions: x14 days pravastatin 20 mg tablet 20 mg PO HS <Jasmyne Padilla MD - Last Filed: 04/18/25 21:50> Follow-up/Referrals: Ramu Gallagher [Other] Referral Note: per [place] documentation Shagufta Khan MD [Primary Care Provider, Family Practice] <Jasmyne Padilla MD - Last Filed: 04/18/25 21:50> Time of Disposition: 21:38 <Jasmyne Padilla MD - Last Filed: 04/18/25 21:50> 21:38 <Mely Whyte MD - Last Filed: 04/19/25 05:27>
[2025-04-18 17:30] LABS: Hematocrit 37.8 % (42.0-52.0); Hemoglobin 11.9 g/dL (14.0-18.0); Immature Granulocyte Percent A 0.3 % (0-0.5); Lymphocytes Absolute Auto 0.80 K/mm3 (0.9-3.2); Mean Corpuscular HGB Conc 31.5 g/dl (32-36); Mean Corpuscular Hemoglobin 30.3 pg (26-34); Mean Corpuscular Volume 96.2 fl (80-100); Nucleated Red Blood Cells Absolute Auto 0.000 K/mm3 (0.0-0.012); Nucleated Red Blood Cells Perc 0.0 % (0.0-0.2); Platelet Count Result 284 k/mm3 (150-375); Red Blood Count 3.93 M/mm3 (4.6-6.20); White Blood Count 8.8 K/mm3 (4.5-10.0)
[2025-04-18 17:40] LABS: Alanine Aminotransferase 32 U/L (6-50); Albumin Level 3.0 g/dL (3.5-5.1); Alkaline Phosphatase 93 U/L (38-126); Anion Gap 7 mmol/L (4-12); Aspartate Amino Transferase 54 U/L (17-59); Bilirubin,Total 1.3 mg/dL (0.2-1.3); Blood Urea Nitrogen 27 mg/dL (9-20); Calcium 8.1 mg/dL (8.4-10.2); Carbon Dioxide 28 mmol/L (22-30); Chloride 94 mmol/L (98-107); Estimated CRCL calculation 63 ml/min; Estimated Glomerular Filt Rate 54; Glucose 187 mg/dL (65-110); Lipase 65 U/L (23-300); Magnesium 1.6 mg/dL (1.6-2.3); Potassium 3.8 mmol/L (3.4-5.0); Sodium 129 mmol/L (137-145); Total Protein 6.1 g/dL (6.3-8.2)
[2025-04-18 17:41] LABS: INR 1.8; Prothrombin Time 20.4 Seconds (11.1-14.7)
[2025-04-18 17:42] LABS: Partial Thromboplastin Time 45.3 Seconds (22.3-36.8)
--- NOTE | 2025-04-18 18:35 | ECG_ITS ---
Test Date: 2025-04-18 19:01:52 Measurements Intervals [place] Rate: 87 P: 0 VT: 0 QRS: -61 QRSD: 150 T: 95 QT: 415 QTc: 501 Interpretive Statements ATRIAL FIBRILLATION WITH ABERRANT CONDUCTION OR VENTRICULAR PREMATURE COMPLEXES INTRAVENTRICULAR CONDUCTION DELAY [130+ ms QRS DURATION] Compared to ECG 03/18/2025 08:06:13 Ventricular premature complex(es) now present Aberrant conduction of supraventricular beat(s) now present Intraventricular conduction delay now present Left anterior fascicular block no longer present Electronically Signed On 04-19-2025 15:51:55 CDT by Gaetano Rg M.D.
[2025-04-18 19:17] LABS: Add Urine Microscopic? YES; Appearance Urine Turbid (Clear); Glucose Urine UA 3+ mg/dL (Negative); Leukocyte Esterase Ur Negative LEU/UL (Negative); Nitrate Urine Negative (Negative); Specific Grav Ur 1.019 (1.001-1.035)
[2025-04-18 19:20] LABS: NT Pro B Type Natriuretic Pept 11000 pg/mL (19.9-100); Troponin I 0.037 ng/mL (0.000-0.034)
[2025-04-18] MEDS: FUROSEMIDE INJ 40 MG/4 ML VIAL 20 MG IV PUSH (20:36)
[2025-04-19] VITALS (41 sets, daily range): BP systolic 109–142; BP diastolic 79–99; PULSE 73–100; RESP 16–35; O2SAT 90–100
[2025-04-19 00:33] LABS: Hematocrit 40.7 % (42.0-52.0); Hemoglobin 12.7 g/dL (14.0-18.0)
[2025-04-19 01:10] LABS: Troponin I 0.044 ng/mL (0.000-0.034)
== END 2025-04-19 06:48 | disposition short-term general hospital (02) ==
PROVIDERS: Student in an Organized Health Care Education/Training Program; Emergency Provider Emergency Medicine; PCP Family Medicine
DX: K62.5 Hemorrhage of anus and rectum (principal); I21.4 Non-ST elevation (NSTEMI) myocardial infarction; I26.99 Other pulmonary embolism without acute cor pulmonale; K52.9 Noninfective gastroenteritis and colitis, unspecified; E11.65 Type 2 diabetes mellitus with hyperglycemia; E87.1 Hypo-osmolality and hyponatremia; E88.09 Other disorders of plasma-protein metabolism, not elsewhere classified; D64.9 Anemia, unspecified; I48.91 Unspecified atrial fibrillation; I50.32 Chronic diastolic (congestive) heart failure; I42.8 Other cardiomyopathies; I25.10 Atherosclerotic heart disease of native coronary artery without angina pectoris; E11.22 Type 2 diabetes mellitus with diabetic chronic kidney disease; I13.0 Hypertensive heart and chronic kidney disease with heart failure and stage 1 through stage 4 chronic kidney disease, or unspecified chronic kidney disease; N18.30 Chronic kidney disease, stage 3 unspecified; E11.40 Type 2 diabetes mellitus with diabetic neuropathy, unspecified; E89.0 Postprocedural hypothyroidism; M17.0 Bilateral primary osteoarthritis of knee; Z98.49 Cataract extraction status, unspecified eye; Z85.828 Personal history of other malignant neoplasm of skin; Z87.891 Personal history of nicotine dependence; Z79.01 Long term (current) use of anticoagulants; Z79.899 Other long term (current) drug therapy; Z79.84 Long term (current) use of oral hypoglycemic drugs; I45.9 Conduction disorder, unspecified
CPT/HCPCS: 36415; 71045; 74177; 80053; 81001; 83605; 83690; 83735; 83880; 84484; 85014; 85018; 85025; 85610; 85730; 86850; 86900; 86901; 93005; 96374; 99285; J1938; Q9967

== ENCOUNTER 2025-05-09 23:49 | Emergency (ER) | payer MEDICARE, SELFPAY ==
--- NOTE | ~2025-05-09 | CT_ITS ---
EXAMINATION: CT chest abdomen pelvis wo con DATE: 05/10/2025 03:17 INDICATION: Sepsis. TECHNIQUE: Computed tomography (CT) of the chest, abdomen, and pelvis was performed without intravenous contrast. Automated exposure control and iterative reconstruction technique were employed. The dose-length product was 2039.09 mGy-cm. COMPARISON: CT abdomen and pelvis 04/18/2025 FINDINGS: CHEST CT: The lungs demonstrate mild atelectasis. Calcified pulmonary nodules and calcified hilar and mediastinal lymph nodes are consistent with old granulomatous disease. There is a small left pleural effusion. Cardiomegaly is noted. No pericardial effusion. There are coronary artery calcifications. There is a multinodular goiter. There are changes of left hemithyroidectomy. There is mild bilateral gynecomastia. There is moderate thoracic spondylosis. ABDOMEN/PELVIS CT: The liver and gallbladder are normal. Calcifications in the spleen are consistent with old granulomatous disease. The pancreas and adrenal glands are normal. There are cysts in the kidneys measuring up to 4.7 cm on the left. There is a 2 mm stone in right kidney. There is diverticulosis of the colon without evidence of diverticulitis. The appendix is normal. There are no pathologically enlarged lymph nodes. There is no free intraperitoneal fluid. There is soft tissue gas in the perirectal region, perineum, and buttocks, left worse than right, consistent with necrotizing fasciitis. There is severe lumbar spondylosis. IMPRESSION: 1. Soft tissue gas in the perirectal region, perineum, and buttocks, left worse than right, consistent with necrotizing fasciitis (Gisela gangrene). 2. Small left pleural effusion. Reviewed, dictated and finalized at location E.
--- NOTE | ~2025-05-09 | XR_ITS ---
Examination: XR chest 1V Clinical History: AMS Comparison: 04/18/2025 Technique: Portable AP Findings: Cardiomegaly. Elevated right hemidiaphragm with associated basilar atelectasis. Lungs otherwise clear. No acute bony abnormality. IMPRESSION: 1. No acute cardiopulmonary findings given portable technique. Reviewed, dictated and finalized at location R.
--- NOTE | ~2025-05-09 | CT_ITS ---
CT HEAD NON-CONTRAST Clinical History: AMS Comparison: 02/19/2025 Technique: Unenhanced axial images skull base to vertex Coronal, sagittal reformats CT images acquired with automatic exposure control for dose reduction DLP: 1059 mGy-cm Findings: Global atrophy. Chronic white matter microvascular ischemic changes. No acute intracerebral hemorrhage. Chronic right hemisphere subdural hemorrhage and/or hygroma. No element of acute component. Sulci, ventricles: Unremarkable. No evidence acute territorial infarct. No mass effect, midline shift. Bony calvarium intact. Visualized paranasal sinuses: Clear. Mastoid air cells: Clear. IMPRESSION: 1. No acute intracranial findings. Reviewed, dictated and finalized at location R.
[2025-05-09 23:53] VITALS: PULSE 110; RESP 12; TEMP 36.4; O2SAT 98
--- NOTE | 2025-05-09 23:53 | ECG_ITS ---
Test Date: 2025-05-09 23:59:25 Measurements Intervals [place] Rate: 118 P: 0 NM: 0 QRS: -64 QRSD: 124 T: 80 QT: 350 QTc: 491 Interpretive Statements ATRIAL FIBRILLATION WITH RAPID VENTRICULAR RESPONSE LEFT ANTERIOR FASCICULAR BLOCK [QRS AXIS <= -45, QR IN I, RS IN II] Electronically Signed On 05-10-2025 10:20:26 CDT by Pam Sanabria M.D.
[2025-05-10] VITALS (44 sets, daily range): BP systolic 61–110; BP diastolic 26–86; PULSE 99–131; RESP 11–31; O2SAT 84–99
--- NOTE | 2025-05-10 00:12 | PC.NURSE ---
Pt taken to CT on stretcher by tech
[2025-05-10 00:53] LABS: Hematocrit 33.3 % (42.0-52.0); Hemoglobin 10.2 g/dL (14.0-18.0); Mean Corpuscular HGB Conc 30.6 g/dl (32-36); Mean Corpuscular Hemoglobin 28.7 pg (26-34); Mean Corpuscular Volume 93.5 fl (80-100); Platelet Count Result 324 k/mm3 (150-375); Red Blood Count 3.56 M/mm3 (4.6-6.20); White Blood Count 17.1 K/mm3 (4.5-10.0)
[2025-05-10 01:03] LABS: Alanine Aminotransferase 39 U/L (6-50); Albumin Level 2.5 g/dL (3.5-5.1); Alkaline Phosphatase 110 U/L (38-126); Anion Gap 13 mmol/L (4-12); Aspartate Amino Transferase 76 U/L (17-59); Bilirubin,Total 2.0 mg/dL (0.2-1.3); Blood Urea Nitrogen 74 mg/dL (9-20); Calcium 7.6 mg/dL (8.4-10.2); Carbon Dioxide 22 mmol/L (22-30); Chloride 90 mmol/L (98-107); Glucose 158 mg/dL (65-110); Magnesium 2.1 mg/dL (1.6-2.3); Potassium 5.5 mmol/L (3.4-5.0); Sodium 125 mmol/L (137-145); Total Protein 5.9 g/dL (6.3-8.2)
[2025-05-10 01:07] LABS: Add Urine Microscopic? YES; Appearance Urine Turbid (Clear); Glucose Urine UA 3+ mg/dL (Negative); Leukocyte Esterase Ur 3+ LEU/UL (Negative); Need Manual Microscopic Reviewed; Nitrate Urine Negative (Negative); Non Pathogenic Casts 0-2; Specific Grav Ur 1.013 (1.001-1.035)
[2025-05-10 01:09] LABS: Estimated CRCL calculation 32 ml/min; Estimated Glomerular Filt Rate 24
[2025-05-10 01:12] LABS: Cannabinoid Screen Urine Negative (Negative); INR 3.2; Prothrombin Time 32.1 Seconds (11.1-14.7)
[2025-05-10 01:15] LABS: Partial Thromboplastin Time 59.5 Seconds (22.3-36.8)
[2025-05-10 01:22] LABS: Anisocytosis 1+; Band Neutrophils Percent 6 % (0-6); Burr Cells 1+; Hypochromasia 1+; Lymphocytes Absolute Manual 0.51 K/mm3 (1.1-4.5); Lymphocytes Percent Manual 3.0 % (18-44); Monocytes Absolute Manual 0.34 K/mm3 (0.1-0.90); Monocytes Percent Manual 2 % (3-9); Neutrophils Absolute Manual 16.24 K/mm3 (1.3-6.7); Neutrophils Percent Manual 89 % (46-73); Schistocytes None Seen; Smudge Cells PRESENT; Total Cells Counted 100
[2025-05-10 01:26] LABS: Ammonia 17 umol/L (9-30)
[2025-05-10] MEDS: SODIUM CHLORIDE 0.9% IV 1,000 ML 999 ML IV CONT ×3 (01:52→02:43)
[2025-05-10] MEDS: VANCOMYCIN 2,000 MG/NS 500 ML 2,000 MG/500 ML BAG 250 MG IVPB (01:59)
[2025-05-10 02:06] LABS: CRP 40.1 mg/dL (<1.0)
[2025-05-10 02:09] LABS: Thyroid Stimulating Hormone Reflex 0.875 uIU/mL (0.465-4.68)
--- NOTE | 2025-05-10 02:16 | ED.AMS ---
HPI - Altered Mental Status General Chief Complaint: Altered Mental Status Stated Complaint: Altered after rolling out of bed 12 hours ago Time Seen by Provider: 05/09/25 23:50 History of Present Illness HPI narrative: Patient is a 79-year-old male who presents to the emergency department this evening from local nursing facility due to concern for altered mental status. Per EMS report, patient rolled out of bed approximately 12 hours ago and when they were checking on him and noted that he was altered. Patient is normally alert and oriented times 2-3. Patient keeps screaming help me and is complaining that his butt hurts. 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 Patient is on al anticoagulants with Eliquis for PE. Related Data Home Medications ?Medication ?Instructions ?Recorded ?Confirmed ?Last Taken ?Type finasteride 5 mg tablet 5 mg PO DAILY 12/19/19 03/18/25 03/17/25 History sodium bicarbonate 650 mg tablet 650 mg PO TID 12/19/21 03/18/25 03/17/25 History chlorthalidone 25 mg tablet 25 mg PO DAILY 01/18/23 03/18/25 03/17/25 History empagliflozin 10 mg tablet 10 mg PO DAILY 01/18/23 03/18/25 03/17/25 History (Jardiance) metoprolol succinate 100 mg 100 mg PO DAILY 07/10/23 03/18/25 03/17/25 History tablet,extended release 24 hr sacubitril 24 mg-valsartan 26 mg 1 tablet PO BID 07/10/23 03/18/25 03/17/25 History tablet (Entresto) hydralazine 100 mg tablet 100 mg PO BID 07/14/24 03/18/25 03/17/25 History acetaminophen 325 mg tablet 650 mg PO Q6H 02/25/25 03/18/25 03/17/25 History amlodipine 5 mg tablet 5 mg PO DAILY 02/25/25 03/18/25 03/17/25 History clonidine HCl 0.1 mg tablet 0.1 mg PO BID 02/25/25 03/18/25 03/17/25 History methocarbamol 500 mg tablet 500 mg PO TID PRN muscle spasm 02/25/25 03/18/25 Unknown History miconazole nitrate 2 % topical 1 applic topical BID 02/25/25 03/18/25 03/17/25 History powder polyethylene glycol 3350 17 17 g PO DAILY 02/25/25 03/18/25 03/17/25 History gram/dose oral powder pravastatin 20 mg tablet 20 mg PO HS 02/25/25 03/18/25 03/17/25 History apixaban 5 mg tablet (Eliquis) 5 mg PO Q12H 03/18/25 03/18/25 03/17/25 History levetiracetam 500 mg tablet 500 mg PO BID 03/18/25 03/18/25 03/17/25 History (Diamond) Allergies Allergy/AdvReac Type Severity Reaction Status Date / Time diclofenac Allergy Unknown Unknown Verified 03/18/25 13:46 Penicillins Allergy Unknown Unknown Verified 03/18/25 13:46 Review of Systems Review of Systems: Unable to obtain full review of systems secondary to patient's current altered mental status. [facility] Past Medical History Medical History Acquired absence of other specified parts of digestive tract Acquired absence of other organs Obesity with alveolar hypoventilation Obesity, morbid, BMI 40.0-49.9 Chronic subdural hematoma Atrial fibrillation 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, bilateral Multinodular goiter Morbid obesity with BMI of 45.0-49.9, adult Coronary artery disease ANTONIO on CPAP Primary hypertension Chronic diastolic CHF (congestive heart failure) Non-ischemic cardiomyopathy Dyspnea on exertion Morbid obesity Cataracts, bilateral CKD (chronic kidney disease) stage 3, GFR 30-59 ml/min Chronic joint pain Type 2 diabetes mellitus Surgical History Surgical History History of appendectomy S/P ablation of atrial fibrillation History of thyroidectomy (~02/2019) Hx of cataract extraction (~08/2020) History of skin surgery (~03/2019) 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 Family History Family History Father Rheumatoid arthritis Lung cancer Mother Arthritis Hypertension Obesity Diabetes mellitus Sibling Diabetes mellitus Other Rheumatoid arteritis Social History Social History Social History: Advanced Directive: Full Code per [place] documentation (no POLST) Smoking packs per day: 2 Smoking cigarettes per day: 40.0 Years smoked: 15 Smoking pack-years: 30.00 Smoking status: Former smoker Tobacco type: cigarettes Second hand tobacco smoke exposure: No Smoking end date: 08/13/74 Alcohol intake: current Drinks per week: 12 Substance use: never Substance use type: does not use Do You Feel Safe in your Home?: Yes Lack of Transportation: No Lack of Food: Never True Current Housing: I Have Housing Concerned About Future Housing: No Difficulty Paying Gas/Electric Bills: No Difficulty Paying for Meds: No Currently Unemployed: No Education: High School Diploma/GED Difficulty w/ Childcare or Family Care: No Living arrangements: [facility] Additional living arrangements comments: [facility] [place] since 04/10/25 Occupation/Education: retired Gender identity (if verbalized by the patient): Male Sexual Orientation (if Verbalized by the Patient): Straight or Heterosexual Spiritual care concerns: Yes ([employer]) Agree to blood products: Yes Exam Narrative: General: Awake, afebrile, keeps screaming help me. HEENT: PERRL, no rhinorrhea, no post nasal drip, oropharynx clear. Neck: Trachea midline, no JVD, no lymphadenopathy. Cardiovascular: Tachycardic with an irregular rhythm, no murmurs, rubs or gallops, no peripheral edema. Respiratory: Clear to auscultation bilaterally, no tachypnea, no wheezing, no rhonchi, no rubs, no respiratory distress. Abdomen: Soft, nontender, nondistended, no rebound, no guarding, no peritoneal signs. Sacral: Chronic sacral decubitus ulcer measuring 6 inches by 3 in with foul smelling odor and surrounding erythema, exam performed with the presence of female nurse leaf conditioner helper Yael. Musculoskeletal: No joint swelling or deformity, normal muscle tone. Skin: No rashes or petechia, no signs of infection. Neurological: Alert and oriented to person. Altered. No focal deficits, moving all 4 extremities spontaneously, speech is clear and fluent. Course Vital Signs Vital signs: Vital Signs Temperature 97.5 F L 05/09/25 23:53 Pulse Rate 110 H 05/09/25 23:53 Respiratory Rate 12 05/09/25 23:53 Pulse Oximetry 98 05/09/25 23:53 Oxygen Delivery Room Air 05/09/25 23:53 Temperature 97.5 F L 05/09/25 23:53 Pulse Rate 107 H 05/10/25 04:15 Respiratory Rate 16 05/10/25 04:13 Blood Pressure 110/86 05/10/25 04:15 Pulse Oximetry 91 05/10/25 04:15 Oxygen Delivery Room Air 05/10/25 00:05 MDM - Altered Mental Status MDM Narrative Medical decision making narrative: The patient was evaluated by myself in the emergency department. History is obtained from EMS report and physical exam was performed. External medical records were reviewed at this time. IV was established and pertinent tests were ordered. Patient was administered 2 L IV fluid bolus with normal saline and started on broad-spectrum antibiotics with vancomycin / cefepime due to concern for sepsis. EKG was obtained which revealed atrial fibrillation with RVR rate of 118 beats per minute, otherwise no acute process. EKG was independently interpreted by me and is currently pending official cardiology read. Laboratory results obtained revealing a leukocytosis of 17.1, ESR 128, sodium 125, potassium 5.5, BUN 74, creatinine 2.57 which is higher than patient's baseline creatinine which is usually normal, lactic acid 3.1, calcium 7.6, total bili 2, CRP 40.1, albumin 2.5. Urinalysis did reveal UTI. Imaging studies obtained included CXR and CT brain, chest abdomen pelvis without IV contrast which are currently pending official radiology read, however, after reviewing the CT's myself, but is findings concerning for necrotizing fasciitis/ Gisela gangrene extending from patient's sacral wound although a to his genitals. At this time, clindamycin and Flagyl added to his antibiotic regimen. Patient continues to remain hypotensive 70 systolic despite 3 L IV fluid bolus. At this time was started on norepinephrine peripherally for pressure support. Current blood pressure 95/69 with a map of 77. Case was discussed with the on-call hospitalist Dr. Bansal who did come down to the ED to evaluate the patient, however, due to concern for necrotizing fasciitis she is recommending transfer for higher level of care. [facility] transfer line for [facility] was contacted at [phone] and transfer was initiated at this time. Case was discussed with the on-call urologist at [facility] Dr. Brumfield at 0423 who recommended ED transfer. Case was discussed with the on-call ED physician Dr. Ardon at 0430 who accepted ED to ED transfer. Differential diagnosis considerations include sepsis secondary to infectious process such as pneumonia, urinary tract infection, cellulitis, dehydration, electrolyte derangements, acute kidney injury, intracranial hemorrhage. Comorbidities impacting this visit include history of multiple chronic conditions including atrial fibrillation, pulmonary emboli, chronic sacral decubitus ulcer, immobility. I have evaluated and discussed social determinants of health with the patient that could potentially impact subsequent diagnosis and treatment plans. On repeat assessment of the patient, reevaluation revealed that the patient is doing well and is in no acute distress. Patient symptoms have improved since he arrived to our emergency department. Repeat vital signs were all reviewed and noted to be stable. Critical care time of 77 minutes, exclusive of separately performed procedures, necessary for treating or preventing eminent or life-threatening deterioration of patient's condition of septic shock, focused on patient care provided personally by me and time spent during initial evaluation, physical examination, ordering and performing treatments and interventions, ordering and reviewing laboratory studies, ordering and reviewing radiographic studies, re-evaluation of the patient's condition, evaluation of the patient's response to treatment, and discussion of patient case with multiple consultants. Lab Data 05/10/25 00:44 05/10/25 00:45 Labs: Lab Results 05/09/25 05/10/25 05/10/25 Range/Units 23:56 00:42 00:44 WBC 17.1 H (4.5-10.0) K/mm3 RBC 3.56 L (4.6-6.20) M/mm3 Hgb 10.2 L (14.0-18.0) g/dL Hct 33.3 L (42.0-52.0) % MCV 93.5 (80-100) fl MCH 28.7 (26-34) pg MCHC 30.6 L (32-36) g/dl RDW 16.1 H (11.5-14.5) % Plt Count 324 (150-375) k/mm3 MPV 10.1 (7.4-10.4) fl Immature Gran % (Auto) Not Reportable Neut % (Auto) Not Reportable Lymph % (Auto) Not Reportable Barton % (Auto) Not Reportable Eos % (Auto) Not Reportable Baso % (Auto) Not Reportable Lymph # (Auto) Not Reportable Barton # (Auto) Not Reportable Eos # (Auto) Not Reportable Baso # (Auto) Not Reportable Abs Immat Gran (auto) Not Reportable Absolute Neuts (auto) Not Reportable Absolute Nucleated RBC Not Reportable Total Counted 100 Neutrophils % (Manual) 89 H (46-73) % Band Neutrophils % 6 (0-6) % Lymphocytes % (Manual) 3.0 L (18-44) % Monocytes % (Manual) 2 L (3-9) % Nucleated RBC % Not Reportable Abs Neuts (Manual) 16.24 H (1.3-6.7) K/mm3 Abs Lymphs (Manual) 0.51 L (1.1-4.5) K/mm3 Abs Monocytes (Manual) 0.34 (0.1-0.90) K/mm3 Smudge Cells Present Platelet Estimate Slightly increased (Adequate) Hypochromasia 1+ Anisocytosis 1+ Vu Cells 1+ Schistocytes None seen ESR 128 H (0-20) mm/hr PT (11.1-14.7) Seconds INR APTT (22.3-36.8) Seconds Fibrinogen (215-510) mg/dl D-Dimer (<0.48) ug/mL Sodium (137-145) mmol/L Potassium (3.4-5.0) mmol/L Chloride (98-107) mmol/L Carbon Dioxide (22-30) mmol/L Anion Gap (4-12) mmol/L BUN (9-20) mg/dL Creatinine (0.7-1.3) mg/dL Estim Creat Clear Calc ml/min Estimated GFR (59 - ) Glucose (65-110) mg/dL POC Capillary Glucose 153 H (65-105) mg/dl Lactic Acid 3.1 H (0.7-2.0) mmol/L Calcium (8.4-10.2) mg/dL Magnesium (1.6-2.3) mg/dL Total Bilirubin (0.2-1.3) mg/dL AST (17-59) U/L ALT (6-50) U/L Alkaline Phosphatase (38-126) U/L Ammonia (9-30) umol/L C-Reactive Protein (<1.0) mg/dL Total Protein (6.3-8.2) g/dL Albumin (3.5-5.1) g/dL TSH (Reflex) (0.465-4.68) uIU/mL Random Cortisol Pending Urine Color (Yellow) Urine Appearance (Clear) Urine pH (5.0-9.0) Ur Specific [place] (1.001-1.035) Urine Protein (Negative) mg/dL Urine Glucose (UA) (Negative) mg/dL Urine Ketones (Negative) mg/dL Ur Blood (Man) (Negative) Urine Nitrate (Negative) Urine Bilirubin (Negative) Urine Urobilinogen (<2.0) mg/dL Add Ur Microanalysis Leukocyte Esterase Rfl (Negative) WU/UL Urine RBC (0-2) /hpf Urine WBC (0-3) /hpf Ur Squamous Epith Cells (Few) /hpf Urine Bacteria /hpf Urine Casts Nasal MRSA (PCR) Urine Opiates Screen (Negative) Urine Methadone Screen (Negative) Ur Barbiturates Screen (Negative) Ur Phencyclidine Scrn (Negative) Ur Amphetamine Screen (Negative) U Benzodiazepines Scrn (Negative) Urine Cocaine Screen (Negative) U Cannabinoids Screen (Negative) 05/10/25 05/10/25 05/10/25 Range/Units 00:45 01:10 03:27 WBC (4.5-10.0) K/mm3 RBC (4.6-6.20) M/mm3 Hgb (14.0-18.0) g/dL Hct (42.0-52.0) % MCV (80-100) fl MCH (26-34) pg MCHC (32-36) g/dl RDW (11.5-14.5) % Plt Count (150-375) k/mm3 MPV (7.4-10.4) fl Immature Gran % (Auto) Neut % (Auto) Lymph % (Auto) Barton % (Auto) Eos % (Auto) Baso % (Auto) Lymph # (Auto) Barton # (Auto) Eos # (Auto) Baso # (Auto) Abs Immat Gran (auto) Absolute Neuts (auto) Absolute Nucleated RBC Total Counted Neutrophils % (Manual) (46-73) % Band Neutrophils % (0-6) % Lymphocytes % (Manual) (18-44) % Monocytes % (Manual) (3-9) % Nucleated RBC % Abs Neuts (Manual) (1.3-6.7) K/mm3 Abs Lymphs (Manual) (1.1-4.5) K/mm3 Abs Monocytes (Manual) (0.1-0.90) K/mm3 Smudge Cells Platelet Estimate (Adequate) Hypochromasia Anisocytosis Vu Cells Schistocytes ESR (0-20) mm/hr PT 32.1 H (11.1-14.7) Seconds INR 3.2 APTT 59.5 H (22.3-36.8) Seconds Fibrinogen 695 H (215-510) mg/dl D-Dimer 2.06 H (<0.48) ug/mL Sodium 125 L (137-145) mmol/L Potassium 5.5 H (3.4-5.0) mmol/L Chloride 90 L (98-107) mmol/L Carbon Dioxide 22 (22-30) mmol/L Anion Gap 13 H (4-12) mmol/L BUN 74 H D (9-20) mg/dL Creatinine 2.57 H (0.7-1.3) mg/dL Estim Creat Clear Calc 32 ml/min Estimated GFR 24 L (59 - ) Glucose 158 H (65-110) mg/dL POC Capillary Glucose 152 H (65-105) mg/dl Lactic Acid (0.7-2.0) mmol/L Calcium 7.6 L (8.4-10.2) mg/dL Magnesium 2.1 (1.6-2.3) mg/dL Total Bilirubin 2.0 H (0.2-1.3) mg/dL AST 76 H (17-59) U/L ALT 39 (6-50) U/L Alkaline Phosphatase 110 (38-126) U/L Ammonia 17 (9-30) umol/L C-Reactive Protein 40.1 H (<1.0) mg/dL Total Protein 5.9 L (6.3-8.2) g/dL Albumin 2.5 L (3.5-5.1) g/dL TSH (Reflex) 0.875 (0.465-4.68) uIU/mL Random Cortisol Urine Color Yellow (Yellow) Urine Appearance Turbid H (Clear) Urine pH 5.5 (5.0-9.0) Ur Specific [place] 1.013 (1.001-1.035) Urine Protein 2+ H (Negative) mg/dL Urine Glucose (UA) 3+ H (Negative) mg/dL Urine Ketones Negative (Negative) mg/dL Ur Blood (Man) 2+ H (Negative) Urine Nitrate Negative (Negative) Urine Bilirubin Negative (Negative) Urine Urobilinogen 0.2 (<2.0) mg/dL Add Ur Microanalysis Reviewed Leukocyte Esterase Rfl 3+ H (Negative) WU/UL Urine RBC 0-2 (0-2) /hpf Urine WBC >100 H (0-3) /hpf Ur Squamous Epith Cells None seen (Few) /hpf Urine Bacteria 4+ H /hpf Urine Casts 0-2 Nasal MRSA (PCR) Urine Opiates Screen Negative (Negative) Urine Methadone Screen Negative (Negative) Ur Barbiturates Screen Negative (Negative) Ur Phencyclidine Scrn Negative (Negative) Ur Amphetamine Screen Negative (Negative) U Benzodiazepines Scrn Negative (Negative) Urine Cocaine Screen Negative (Negative) U Cannabinoids Screen Negative (Negative) 05/10/25 05/10/25 Range/Units 04:23 04:42 WBC (4.5-10.0) K/mm3 RBC (4.6-6.20) M/mm3 Hgb (14.0-18.0) g/dL Hct (42.0-52.0) % MCV (80-100) fl MCH (26-34) pg MCHC (32-36) g/dl RDW (11.5-14.5) % Plt Count (150-375) k/mm3 MPV (7.4-10.4) fl Immature Gran % (Auto) Neut % (Auto) Lymph % (Auto) Barton % (Auto) Eos % (Auto) Baso % (Auto) Lymph # (Auto) [place] # (Auto) Eos # (Auto) Baso # (Auto) Abs Immat Gran (auto) Absolute Neuts (auto) Absolute Nucleated RBC Total Counted Neutrophils % (Manual) (46-73) % Band Neutrophils % (0-6) % Lymphocytes % (Manual) (18-44) % Monocytes % (Manual) (3-9) % Nucleated RBC % Abs Neuts (Manual) (1.3-6.7) K/mm3 Abs Lymphs (Manual) (1.1-4.5) K/mm3 Abs Monocytes (Manual) (0.1-0.90) K/mm3 Smudge Cells Platelet Estimate (Adequate) Hypochromasia Anisocytosis Vu Cells Schistocytes ESR (0-20) mm/hr PT (11.1-14.7) Seconds INR APTT (22.3-36.8) Seconds Fibrinogen (215-510) mg/dl D-Dimer (<0.48) ug/mL Sodium (137-145) mmol/L Potassium (3.4-5.0) mmol/L Chloride (98-107) mmol/L Carbon Dioxide (22-30) mmol/L Anion Gap (4-12) mmol/L BUN (9-20) mg/dL Creatinine (0.7-1.3) mg/dL Estim Creat Clear Calc ml/min Estimated GFR (59 - ) Glucose (65-110) mg/dL POC Capillary Glucose (65-105) mg/dl Lactic Acid 3.0 H (0.7-2.0) mmol/L Calcium (8.4-10.2) mg/dL Magnesium (1.6-2.3) mg/dL Total Bilirubin (0.2-1.3) mg/dL AST (17-59) U/L ALT (6-50) U/L Alkaline Phosphatase (38-126) U/L Ammonia (9-30) umol/L C-Reactive Protein (<1.0) mg/dL Total Protein (6.3-8.2) g/dL Albumin (3.5-5.1) g/dL TSH (Reflex) (0.465-4.68) uIU/mL Random Cortisol Urine Color (Yellow) Urine Appearance (Clear) Urine pH (5.0-9.0) Ur Specific [place] (1.001-1.035) Urine Protein (Negative) mg/dL Urine Glucose (UA) (Negative) mg/dL Urine Ketones (Negative) mg/dL Ur Blood (Man) (Negative) Urine Nitrate (Negative) Urine Bilirubin (Negative) Urine Urobilinogen (<2.0) mg/dL Add Ur Microanalysis Leukocyte Esterase Rfl (Negative) WU/UL Urine RBC (0-2) /hpf Urine WBC (0-3) /hpf Ur Squamous Epith Cells (Few) /hpf Urine Bacteria /hpf Urine Casts Nasal MRSA (PCR) Pending Urine Opiates Screen (Negative) Urine Methadone Screen (Negative) Ur Barbiturates Screen (Negative) Ur Phencyclidine Scrn (Negative) Ur Amphetamine Screen (Negative) U Benzodiazepines Scrn (Negative) Urine Cocaine Screen (Negative) U Cannabinoids Screen (Negative) Critical Care Time Critical Care Time Critical Care Time: Yes Total Critical Care Time: 77 ( Please refer to [facility] for attestation.) Discharge Plan Discharge Clinical Impression: Septic shock, NICOLE (acute kidney injury), Decubitus ulcer of sacral region, stage 4, UTI (urinary tract infection), Necrotizing fasciitis, Gisela gangrene Patient Disposition: Acute Care Hospital Condition: Serious Patient Language: Mongolian Prescriptions: No Action finasteride 5 mg tablet 5 mg PO DAILY metoprolol succinate 100 mg tablet extended release 24 hr 100 mg PO DAILY Entresto 24-26 mg tablet 1 tablet PO BID sodium bicarbonate 650 mg tablet 650 mg PO TID Jardiance 10 mg tablet 10 mg PO DAILY chlorthalidone 25 mg tablet 25 mg PO DAILY hydralazine 100 mg tablet 100 mg PO BID Eliquis 5 mg tablet 5 mg PO Q12H levetiracetam [Keppra] 500 mg tablet 500 mg PO BID glimepiride 4 mg tablet 4 mg PO DAILY Qty: 90 3RF metformin 500 mg tablet extended release 24 hr 1,000 mg PO BID Qty: 360 3RF gabapentin 300 mg capsule 300 mg PO QHS Qty: 90 2RF Januvia 100 mg tablet 100 mg PO DAILY Qty: 90 3RF clonidine HCl 0.1 mg tablet 0.1 mg PO BID acetaminophen 325 mg tablet 650 mg PO Q6H Rx Instructions: x7 days amlodipine 5 mg tablet 5 mg PO DAILY methocarbamol 500 mg tablet 500 mg PO TID PRN (Reason: muscle spasm) Rx Instructions: x7 days miconazole nitrate 2 % powder 1 applic topical BID polyethylene glycol 3350 17 gram/dose powder 17 g PO DAILY Rx Instructions: x14 days pravastatin 20 mg tablet 20 mg PO HS Follow-up/Referrals: Shagufta Khan MD [Primary Care Provider, [facility]] Time of Disposition: 04:35
[2025-05-10] MEDS: ALBUMIN HUMAN 25% 25 GM/100 ML 100 ML IVPB (03:27)
[2025-05-10] MEDS: NOREPINEPHRINE 8 MG/D5W 250 ML 8 MG/250 ML BAG 9.38 MG IV CONT (03:40)
--- NOTE | 2025-05-10 04:04 | PC.NURSE ---
sacral wound irrigated, and clean dressing applied.
[2025-05-10] MEDS: MORPHINE SULFATE (*CRX) 4 MG/ML INJ 2 MG IV PUSH (04:10)
[2025-05-10] MEDS: ONDANSETRON INJ 4 MG/2 ML VIAL IV PUSH (04:11)
[2025-05-10 04:35] LABS: Fibrinogen 695 mg/dl (215-510)
[2025-05-10] MEDS: HYDROCORTISONE SODIUM SUCCINATE 100 MG/2 ML VIAL IV PUSH (05:04)
[2025-05-10] MEDS: CLINDAMYCIN 600 MG/D5W 50 ML 600 MG/50 ML PIGGYBACK 100 MG IVPB (05:07)
--- NOTE | 2025-05-10 05:08 | PC.NURSE ---
Attempted to call pt's contact on [facility] paperwork, (son) Riley Kerr at [phone], without success. Left VM for him to return call to charge nurse.
[2025-05-10] MEDS: metroNIDAZOLE 500 MG/ISO 100ML 500 MG/100 ML BAG 100 MG IVPB (05:10)
--- NOTE | 2025-05-10 05:21 | PM.IMCN ---
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 Status: Acute (2) Septic shock: Code(s): A41.9 - Sepsis, unspecified organism; R65.21 - Severe sepsis with septic shock Status: Acute (3) Morbid obesity: Code(s): E66.01 - Morbid (severe) obesity due to excess calories Status: Acute (4) Acute kidney injury superimposed on stage 3b chronic kidney disease: Code(s): N17.9 - Acute kidney failure, unspecified; N18.32 - Chronic kidney disease, stage 3b Status: Acute (5) Decubitus ulcer of sacral region, stage 4: Code(s): L89.154 - Pressure ulcer of sacral region, stage 4 Status: Acute (6) Metabolic encephalopathy: Code(s): G93.41 - Metabolic encephalopathy Status: Acute Plan Patient presents with septic shock and was found to have necrotizing fasciitis. I recommended treatment with stress dose hydrocortisone, and central line placement. Given the patient has Gisela's gangrene and we do not have the multi specialty team here that would be required for successful treatment and management I recommend transfer to tertiary care. Patient would benefit from administration of BiPAP in transport. 55 minute spent in critical care activities Due to a high probability of clinically significant, life threatening deterioration, the patient required my highest level of preparedness to intervene emergently and I personally spent this critical care time directly and personally managing the patient. This critical care time included obtaining a history; examining the patient; pulse oximetry; ordering and review of studies; arranging urgent treatment with development of a management plan; evaluation of patient's response to treatment; frequent reassessment; and discussions with other providers. It was exclusive of separately billable procedures and treating other patients and teaching time. Please see Assessment and Plan section and the rest of the note for further information on patient assessment and treatment. HPI Date of Consult Consult date: 05/10/25 Requesting Physician: Dr Whyte Primary Care Provider: Shagufta Khan MD Consult Narrative Reason for consult: Septic shock Narrative: Jewel White is a 79 year old male with a complex past medical history including, but not limited to, combined systolic and diastolic heart, complex sleep apnea (BiPAP 17/12 polysomnogram 2022), severe pulmonary hypertension noted on right heart catheterization 2022, paroxysmal atrial fibrillation, subdural hematoma 02/19/2025, acute DVT and PE 03/18/2025 and acute GI bleed 04/18/2025 and decubitus ulcer who presented to the ER via EMS from [facility] due altered mental status that developed after a fall earlier in the day. During prior admissions the patient had been alert oriented x3. Patient arrived to the ER somnolent and oriented only to name. The patient could not actually responded tell us his name but would open his eyes to name. He was repeatedly yelling out ?help me? along with other unintelligible words. On this or arrival to the ER patient was normotensive and afebrile but tachycardic and tachypneic. He was hypoxic with oxygen saturations of 84% on room air and was placed on 2 L of nasal cannula with improvement. CT of the head was performed which was negative for acute process. Labs demonstrated leukocytosis lactic acidosis acute on chronic anemia with he drop in hemoglobin of 2 grams and an elevated INR of 3.2. The patient's INR on Eliquis due to recent pulmonary embolism was 1.8. And acute kidney injury with hyperkalemia and urine demonstrated findings concerning for possible urinary tract infection but also had some blood. Have ER request 2nd on evaluate the patient give further recommendations. Had given mention of decubitus ulcer and had concern for UTI and blood in urine as well as the uncertainty if there was actually an infiltrate on x-ray I recommended noncontrast CT of the chest abdomen pelvis. The patient had just returned from CT at the time of my evaluation I personally reviewed CT scan and the patient had extensive soft tissue gas is starting from the L4 region across bilateral buttocks into the gluteal fold and down into the peritoneum extending anteriorly. Given these findings the patient will require transfer to higher level of care for multi specialist to the treatment which is not available at this facility. The patient was hypotensive at the time of my evaluation. I recommended the addition of stress dose hydrocortisone, cefepime, clindamycin and Flagyl to the vancomycin that the patient had already received. 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 Atrial fibrillation Type 2 diabetes mellitus with diabetic neuropathy Multinodular goiter Coronary artery disease Primary hypertension Cataracts, bilateral CKD (chronic kidney disease) stage 3, GFR 30-59 ml/min Type 2 diabetes mellitus Surgical History Surgical History History of appendectomy S/P ablation of atrial fibrillation History of thyroidectomy (~02/2019) Hx of cataract extraction (~08/2020) History of skin surgery (~03/2019) 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 Family History Family History Father Rheumatoid arthritis Lung cancer Mother Arthritis Hypertension Obesity Diabetes mellitus Sibling Diabetes mellitus Other Rheumatoid arteritis Social History Social History Social History: Advanced Directive: Full Code per [place] documentation (no POLST) Smoking packs per day: 2 Smoking cigarettes per day: 40.0 Years smoked: 15 Smoking pack-years: 30.00 Smoking status: Former smoker Tobacco type: cigarettes Second hand tobacco smoke exposure: No Smoking end date: 08/13/74 Alcohol intake: current Drinks per week: 12 Substance use: never Substance use type: does not use Do You Feel Safe in your Home?: Yes Lack of Transportation: No Lack of Food: Never True Current Housing: I Have Housing Concerned About Future Housing: No Difficulty Paying Gas/Electric Bills: No Difficulty Paying for Meds: No Currently Unemployed: No Education: High School Diploma/GED Difficulty w/ Childcare or Family Care: No Living arrangements: penitentiary Additional living arrangements comments: [facility] since 04/10/25 Occupation/Education: retired Gender identity (if verbalized by the patient): Male Sexual Orientation (if Verbalized by the Patient): Straight or Heterosexual Spiritual care concerns: Yes (Anabaptism) Agree to blood products: Yes Meds Home Medications and Allergies Home Medications ?Medication ?Instructions ?Recorded ?Confirmed ?Type finasteride 5 mg tablet 5 mg PO DAILY 12/19/19 03/18/25 History sodium bicarbonate 650 mg tablet 650 mg PO TID 12/19/21 03/18/25 History chlorthalidone 25 mg tablet 25 mg PO DAILY 01/18/23 03/18/25 History empagliflozin 10 mg tablet 10 mg PO DAILY 01/18/23 03/18/25 History (Jardiance) metoprolol succinate 100 mg 100 mg PO DAILY 07/10/23 03/18/25 History tablet,extended release 24 hr sacubitril 24 mg-valsartan 26 mg 1 tablet PO BID 07/10/23 03/18/25 History tablet (Entresto) glimepiride 4 mg tablet 4 mg PO DAILY #90 tabs 05/07/24 03/18/25 Rx hydralazine 100 mg tablet 100 mg PO BID 07/14/24 03/18/25 History metformin 500 mg tablet,extended 1,000 mg (2 x 500 mg) PO BID #360 10/20/24 03/18/25 Rx release 24 hr tabs acetaminophen 325 mg tablet 650 mg PO Q6H 02/25/25 03/18/25 History amlodipine 5 mg tablet 5 mg PO DAILY 02/25/25 03/18/25 History clonidine HCl 0.1 mg tablet 0.1 mg PO BID 02/25/25 03/18/25 History methocarbamol 500 mg tablet 500 mg PO TID PRN muscle spasm 02/25/25 03/18/25 History miconazole nitrate 2 % topical 1 applic topical BID 02/25/25 03/18/25 History powder polyethylene glycol 3350 17 17 g PO DAILY 02/25/25 03/18/25 History gram/dose oral powder pravastatin 20 mg tablet 20 mg PO HS 02/25/25 03/18/25 History gabapentin 300 mg capsule 300 mg PO QHS #90 caps 02/27/25 03/18/25 Rx sitagliptin phosphate 100 mg 100 mg PO DAILY #90 tabs 03/11/25 03/18/25 Rx tablet (Januvia) apixaban 5 mg tablet (Eliquis) 5 mg PO Q12H 03/18/25 03/18/25 History levetiracetam 500 mg tablet 500 mg PO BID 03/18/25 03/18/25 History (Kedmaien) Allergies Allergy/AdvReac Type Severity Reaction Status Date / Time diclofenac Allergy Unknown Unknown Verified 03/18/25 13:46 Penicillins Allergy Unknown Unknown Verified 03/18/25 13:46 Vital Signs Vital Signs - 24 hr 05/09/25 23:53 05/10/25 00:05 05/10/25 00:34 Temperature 97.5 F L Pulse Rate 110 H 113 H Respiratory Rate 12 21 H Blood Pressure Pulse Oximetry 98 Oxygen Delivery Room Air Room Air 05/10/25 00:47 05/10/25 01:00 05/10/25 01:14 Temperature Pulse Rate 131 H 119 H 121 H Respiratory Rate 17 25 H Blood Pressure Pulse Oximetry Oxygen Delivery 05/10/25 01:15 05/10/25 01:44 05/10/25 01:45 Temperature Pulse Rate 129 H 112 H 116 H Respiratory Rate 17 18 25 H Blood Pressure Pulse Oximetry 94 Oxygen Delivery 05/10/25 02:00 05/10/25 02:12 05/10/25 02:15 Temperature Pulse Rate 117 H 116 H Respiratory Rate 17 22 H Blood Pressure 110/78 Pulse Oximetry 84 L Oxygen Delivery 05/10/25 02:26 05/10/25 02:30 05/10/25 02:31 Temperature Pulse Rate 115 H 106 H 116 H Respiratory Rate 20 29 H 22 H Blood Pressure 71/53 L 80/60 L Pulse Oximetry Oxygen Delivery 05/10/25 02:32 05/10/25 02:43 05/10/25 02:45 Temperature Pulse Rate 112 H 117 H 112 H Respiratory Rate 18 24 H 22 H Blood Pressure 70/57 L Pulse Oximetry 90 Oxygen Delivery 05/10/25 03:12 05/10/25 03:14 05/10/25 03:15 Temperature Pulse Rate 115 H 118 H 106 H Respiratory Rate 22 H 21 H 18 Blood Pressure 61/41 L 64/44 L Pulse Oximetry Oxygen Delivery 05/10/25 03:16 05/10/25 03:17 05/10/25 03:21 Temperature Pulse Rate 115 H 120 H 119 H Respiratory Rate 25 H 15 28 H Blood Pressure 70/53 L 82/44 L Pulse Oximetry 95 Oxygen Delivery 05/10/25 03:26 05/10/25 03:30 05/10/25 03:32 Temperature Pulse Rate 111 H 106 H 110 H Respiratory Rate 23 H 21 H 24 H Blood Pressure 76/58 L 72/50 L Pulse Oximetry 94 93 Oxygen Delivery 05/10/25 03:36 05/10/25 03:38 05/10/25 03:40 Temperature Pulse Rate 116 H 119 H 104 H Respiratory Rate 25 H 27 H Blood Pressure 86/26 L 71/61 L 70/41 L Pulse Oximetry 92 Oxygen Delivery 05/10/25 03:42 05/10/25 03:45 05/10/25 03:46 Temperature Pulse Rate 106 H 109 H 106 H Respiratory Rate 22 H 16 21 H Blood Pressure 70/41 L 96/75 L Pulse Oximetry 91 93 Oxygen Delivery 05/10/25 03:47 05/10/25 03:47 05/10/25 03:51 Temperature Pulse Rate 99 127 H 105 H Respiratory Rate 31 H 24 H Blood Pressure 91/51 L 91/51 L 71/58 L Pulse Oximetry 93 92 Oxygen Delivery 05/10/25 03:52 05/10/25 03:53 05/10/25 03:58 Temperature Pulse Rate 112 H 107 H 111 H Respiratory Rate 20 Blood Pressure 70/58 L 70/58 L 96/68 L Pulse Oximetry 93 Oxygen Delivery 05/10/25 03:58 05/10/25 04:00 05/10/25 04:01 Temperature Pulse Rate 99 112 H 108 H Respiratory Rate 11 L 20 16 Blood Pressure 64/31 L 96/68 L Pulse Oximetry 99 Oxygen Delivery 05/10/25 04:03 05/10/25 04:07 05/10/25 04:07 Temperature Pulse Rate 115 H 109 H 104 H Respiratory Rate 16 14 Blood Pressure 105/74 92/69 L 92/69 L Pulse Oximetry 97 Oxygen Delivery 05/10/25 04:09 05/10/25 04:13 05/10/25 04:15 Temperature Pulse Rate 101 H 110 H 107 H Respiratory Rate 16 16 Blood Pressure 102/58 L 107/53 L 110/86 Pulse Oximetry 95 96 91 Oxygen Delivery Exam Narrative: Weight 135.7 kg BMI 38.4 Results Labs 05/10/25 00:44 05/10/25 00:45 Labs: Short CBC 05/10/25 Range/Units 00:44 WBC 17.1 H (4.5-10.0) K/mm3 Hgb 10.2 L (14.0-18.0) g/dL Hct 33.3 L (42.0-52.0) % Plt Count 324 (150-375) k/mm3 BMP 05/10/25 00:45 Sodium 125 L Potassium 5.5 H Chloride 90 L Carbon Dioxide 22 BUN 74 H D Creatinine 2.57 H Glucose 158 H Calcium 7.6 L Liver Function 05/10/25 Range/Units 00:45 Total Bilirubin 2.0 H (0.2-1.3) mg/dL AST 76 H (17-59) U/L ALT 39 (6-50) U/L Alkaline Phosphatase 110 (38-126) U/L Albumin 2.5 L (3.5-5.1) g/dL Urine 05/10/25 Range/Units 00:45 Urine Color Yellow (Yellow) Urine Appearance Turbid H (Clear) Urine pH 5.5 (5.0-9.0) Ur Specific [place] 1.013 (1.001-1.035) Urine Protein 2+ H (Negative) mg/dL Urine Glucose (UA) 3+ H (Negative) mg/dL Quality If No VTE Prophylaxis Answer both mechanical and pharmacologic: Reason no pharmacologic proph: medical contraindication supratherapeutic INR >3 Hospitalist MIPS Advance Care Plan I have confirmed that the patient's Advanced Care Plan is present, code status is documented, or surrogate decision maker is listed in patient medical record.: Yes Medication Reconciliation I have utilized all available resources to obtain, update and review the patients current medications (includes all prescriptions, OTC, herbals, cannabis, and nutritional supplements).: Yes
[2025-05-10] MEDS: CEFEPIME 1 GM in SODIUM CHLORIDE 0.9% IV 50 ML 100 ML IVPB (05:39)
[2025-05-10 05:57] LABS: MRSA (PCR) DETECTED (NOT DETECTE)
== END 2025-05-10 06:04 | disposition short-term general hospital (02) ==
PROVIDERS: Emergency Provider Emergency Medicine; PCP Family Medicine
DX: A41.9 Sepsis, unspecified organism (principal); R65.21 Severe sepsis with septic shock; N17.9 Acute kidney failure, unspecified; L89.154 Pressure ulcer of sacral region, stage 4; N39.0 Urinary tract infection, site not specified; N49.3 Fournier gangrene; I48.91 Unspecified atrial fibrillation; I44.4 Left anterior fascicular block; Z79.01 Long term (current) use of anticoagulants; Z86.711 Personal history of pulmonary embolism; I13.0 Hypertensive heart and chronic kidney disease with heart failure and stage 1 through stage 4 chronic kidney disease, or unspecified chronic kidney disease; E11.22 Type 2 diabetes mellitus with diabetic chronic kidney disease; N18.30 Chronic kidney disease, stage 3 unspecified; I50.32 Chronic diastolic (congestive) heart failure; Z79.85 Long-term (current) use of injectable non-insulin antidiabetic drugs; I25.10 Atherosclerotic heart disease of native coronary artery without angina pectoris; G47.30 Sleep apnea, unspecified; E66.9 Obesity, unspecified; Z68.38 Body mass index [BMI] 38.0-38.9, adult
CPT/HCPCS: 36415; 70450; 71045; 71250; 74176; 80053; 80307; 81001; 82140; 82533; 82948; 83605; 83735; 84443; 85025; 85380; 85384; 85610; 85652; 85730; 86140; 87040; 87086; 87186; 87641; 93005; 96365; 96366; 96367; 96368; 96375; 99291; C1751; J0692; J1720; J1836; J2270; J2405; J3373; J7030; J7040; P9047